=== PATIENT | male | born 1960 | race Caucasian/White ===

== ENCOUNTER 2016-12-20 05:38 | Inpatient (IN) | payer OTHER ==
[~2016-12-20] VITALS: Ht 182.9 cm; Wt 90.0 kg
[~2016-12-20 05:38] MED LIST: ALBU6.7H INH; ASPI325T PO; AUGM500T7 PO; GABA600T PO; GEMF600T PO; GLIP5TAB8 PO; LISI-515 PO; LOVA40TA PO; METF1000 PO; METR-1 PO; OXYC1TAB63 PO
[2016-12-20 05:43] VITALS: BP 115/70; PULSE 90; RESP 18; TEMP 98.9; TEMP 99.5; O2SAT 99
[2016-12-20 06:12] LABS: AUTOMATED NEUTROPHIL # 10.8 TH/MM3 (1.8-7.7); BASOPHIL % 0.3 % (0.0-2.0); EOSINOPHIL % 0.3 % (0.0-4.0); HEMATOCRIT 32.9 % (39.0-51.0); LYMPH % 11.1 % (9.0-44.0); LYMPHOCYTE # 1.5 TH/MM3 (1.0-4.8); MEAN CELL VOLUME 71.4 FL (80.0-100.0); MEAN CORPUSCULAR HEMOGLOBIN 22.9 PG (27.0-34.0); MONO % 8.1 % (0.0-8.0); NEUT % 80.2 % (16.0-70.0); PLATELET COUNT 334 TH/MM3 (150-450); RED BLOOD COUNT 4.61 MIL/MM3 (4.50-5.90); RED CELL DISTRIBUTION WIDTH 19.6 % (11.6-17.2); WHITE BLOOD COUNT 13.5 TH/MM3 (4.0-11.0)
[2016-12-20] MEDS ORDERED: HYDROmorphone HCL PF 1 MG/ML VIAL IV PUSH ONE ×2 (06:15→07:45)
[2016-12-20] MEDS ORDERED: ONDANSETRON HCL 4 MG/2 ML VIAL IV PUSH ONE (06:15)
[2016-12-20] MEDS ORDERED: SODIUM CHLOR 0.9% 1000 ML INJ 1,000 ML IV ONE (06:15)
[2016-12-20 06:16] LABS: HEMO FLAGS AUTO DIFF
[2016-12-20 06:29] LABS: ALT (GPT) 115 U/L (12-78); AST (GOT) 67 U/L (15-37); BLOOD UREA NITROGEN 23 MG/DL (7-18); GLOMERULAR FILTRATION RATE 69 ML/MIN (>89); POTASSIUM 3.8 MEQ/L (3.5-5.1); SODIUM (NA) 134 MEQ/L (136-145)
[2016-12-20 06:30] LABS: ANION GAP 10 MEQ/L (5-15); BICARBONATE 23.1 MEQ/L (21.0-32.0); CHLORIDE 101 MEQ/L (98-107)
--- NOTE | 2016-12-20 06:30 | PD ---
HPI Chief Complaint: Abdominal Pain Time Seen by Provider: 06:05 Travel History International Travel<30 days: No Contact w/Intl Traveler<30days: No Traveled to known affect area: No History of Present Illness HPI 56-year-old male with history of multiple medical issues, nursing notes were evaluated, previous history of hiatal hernia repair, gastric ulcer, has been evaluated by Dr. Pierre for diverticulitis and had discuss hemicolectomy, presents to the ER today for 3 days history of right upper quadrant abdominal pain which she currently measures and 8 out of 10, nausea, and symptoms worsen with movement. He denies any vomiting, fevers, diarrhea, or any other symptoms. He states that the area feels bloated and swollen. Modifying Factors: None Associated Signs & Symptoms: Right upper quadrant abdominal pain, nausea, swelling Risk Factors: Diverticulitis history PFSH Past Medical History Arthritis: Yes Asthma: No Autoimmune Disease: No Blood Disorders: No Anxiety: No Depression: Yes Heart Rhythm Problems: No Cancer: No Cardiovascular Problems: No High Cholesterol: Yes Chemotherapy: No Chest Pain: No Congestive Heart Failure: No COPD: Yes Cerebrovascular Accident: Yes (TIA 05/2015) Diabetes: Yes Patient Takes Glucophage: Yes (12/19/16@2030) Diminished Hearing: No Diverticulitis: Yes Endocrine: No Gastrointestinal Disorders: Yes (HIATAL HERNIA; ABD HERNIA, ULCER) GERD: Yes Genitourinary: No Hepatitis: No Hiatal Hernia: Yes Hypertension: Yes Immune Disorder: No Implanted Vascular Access Dvce: No Medical other: Yes (GERD, HX ULCERS, SEIZURES , HEART, LIVER AND OTHER ORGANS ON OPPOSITE SIDE) Musculoskeletal: Yes (ARTHRITIS) Neurologic: Yes (VERTIGO ) Psychiatric: No Reproductive: No Respiratory: Yes (COPD) Immunizations Current: Yes Migraines: No Myocardial Infarction: No Radiation Therapy: No Seizures: Yes ( A KID) Sleep Apnea: Yes Thyroid Disease: No Triglycerides - High: Yes Ulcer: Yes Tetanus Vaccination: > 5 Years Influenza Vaccination: No Past Surgical History Abdominal Surgery: Yes (12/11 LAP HIATAL HERNIA; 06/10 REPAIR INCISIONAL HERNIA) Body Medical Devices: MESH Cardiac Surgery: No Ear Surgery: No Endocrine Surgery: No Eye Surgery: No Genitourinary Surgery: No Gynecologic Surgery: No Joint Replacement: No Oral Surgery: Yes (EGD 09/09) Pacemaker: No Thoracic Surgery: No Other Surgery: Yes (lap hiatal hernia repair) Social History Alcohol Use: Yes ("NOT TOO MUCH") Tobacco Use: Yes ("NOT EVERY DAY") Substance Use: No Allergies-Medications (Allergen,Severity, Reaction): Coded Allergies: No Known Allergies (Verified , 08/23/16) Reported Meds & Prescriptions Reported Meds & Active Scripts Active Lisinopril 20 Mg Tab 20 Mg PO BID Glipizide 5 Mg Tab 5 Mg PO DAILY Take 30 minutes before a meal Lovastatin 40 Mg Tab 40 Mg PO DAILY Oxycodone-Acetaminophen 5-325 mg Tab 1 Tab PO Q4H PRN Metformin (Metformin HCl) 1,000 Mg Tab 1,000 Mg PO BIDPC With meals Reported Gabapentin 600 Mg Tab 600 Mg PO TID Proventil Hfa 6.7 GM Inh (Albuterol Sulfate) 90 Mcg/Act Aer 1 Puff INH Q4H PRN Gemfibrozil 600 Mg Tab 600 Mg PO BIDAC Take 30 minutes prior to breakfast and dinner. Aspirin 325 Mg Tab 325 Mg PO DAILY Review of Systems Except as stated in HPI: all other systems reviewed are Neg Physical Exam Narrative GENERAL: Well-nourished, well-developed middle age white male patient in no acute distress. SKIN: Warm and dry. HEAD: Normocephalic. EYES: No scleral icterus. No injection or drainage. NECK: Supple, trachea midline. CARDIOVASCULAR: Regular rate and rhythm without murmurs, gallops, or rubs. RESPIRATORY: Breath sounds equal bilaterally. No accessory muscle use. GASTROINTESTINAL: Abdomen soft, right upper quadrant tenderness without guarding or rebound, nondistended. MUSCULOSKELETAL: No cyanosis, or edema. BACK: Nontender without obvious deformity. No CVA tenderness. Data Data Last Documented VS Vital Signs Date Time Temp Pulse Resp B/P Pulse Ox O2 Delivery O2 Flow Rate FiO2 12/20/16 05:43 99.5 90 18 115/70 99 Room Air Orders Complete Blood Count With Diff (12/20/16 05:54) Comprehensive Metabolic Panel (12/20/16 05:54) Lipase (12/20/16 05:54) Urinalysis - C+S If Indicated (12/20/16 05:54) Iv Access Insert/Monitor (12/20/16 05:54) Ecg Monitoring (12/20/16 05:54) Oximetry (12/20/16 05:54) Sodium Chloride 0.9% Flush (Ns Flush) (12/20/16 06:00) Sodium Chlor 0.9% 1000 Ml Inj (Ns 1000 M (12/20/16 06:15) Hydromorphone Pf Inj (Dilaudid Pf Inj) (12/20/16 06:15) Ondansetron Inj (Zofran Inj) (12/20/16 06:15) Ct Abd/Pel W Iv Contrast(Rout) (12/20/16 06:06) Iohexol 350 Inj (Omnipaque 350 Inj) (12/20/16 06:52) Labs Laboratory Tests Test 12/20/16 06:00 White Blood Count 13.5 TH/MM3 Red Blood Count 4.61 MIL/MM3 Hemoglobin 10.6 GM/DL Hematocrit 32.9 % Mean Corpuscular Volume 71.4 FL Mean Corpuscular Hemoglobin 22.9 PG Mean Corpuscular Hemoglobin 32.0 % Concent Red Cell Distribution Width 19.6 % Platelet Count 334 TH/MM3 Mean Platelet Volume 7.4 FL Neutrophils (%) (Auto) 80.2 % Lymphocytes (%) (Auto) 11.1 % Monocytes (%) (Auto) 8.1 % Eosinophils (%) (Auto) 0.3 % Basophils (%) (Auto) 0.3 % Neutrophils # (Auto) 10.8 TH/MM3 Lymphocytes # (Auto) 1.5 TH/MM3 Monocytes # (Auto) 1.1 TH/MM3 Eosinophils # (Auto) 0.0 TH/MM3 Basophils # (Auto) 0.0 TH/MM3 CBC Comment AUTO DIFF Differential Comment AUTO DIFF CONFIRMED Platelet Estimate NORMAL Platelet Morphology Comment NORMAL Red Cell Morphology Comment Sodium Level 134 MEQ/L Potassium Level 3.8 MEQ/L Chloride Level 101 MEQ/L Carbon Dioxide Level 23.1 MEQ/L Anion Gap 10 MEQ/L Blood Urea Nitrogen 23 MG/DL Creatinine 1.10 MG/DL Estimat Glomerular Filtration 69 ML/MIN Rate Random Glucose 95 MG/DL Calcium Level 8.8 MG/DL Total Bilirubin 0.6 MG/DL Aspartate Amino Transf 67 U/L (AST/SGOT) Alanine Aminotransferase 115 U/L (ALT/SGPT) Alkaline Phosphatase 192 U/L Total Protein 7.4 GM/DL Albumin 2.8 GM/DL Lipase 129 U/L [facility] Medical Decision Making Medical Screen Exam Complete: Yes Emergency Medical Condition: Yes Medical Record Reviewed: Yes Interpretation(s) Laboratory Tests Test 12/20/16 06:00 White Blood Count 13.5 TH/MM3 (4.0-11.0) Hemoglobin 10.6 GM/DL (13.0-17.0) Hematocrit 32.9 % (39.0-51.0) Mean Corpuscular Volume 71.4 FL (80.0-100.0) Mean Corpuscular Hemoglobin 22.9 PG (27.0-34.0) Red Cell Distribution Width 19.6 % (11.6-17.2) Neutrophils (%) (Auto) 80.2 % (16.0-70.0) Monocytes (%) (Auto) 8.1 % (0.0-8.0) Neutrophils # (Auto) 10.8 TH/MM3 (1.8-7.7) Monocytes # (Auto) 1.1 TH/MM3 (0-0.9) Sodium Level 134 MEQ/L (136-145) Blood Urea Nitrogen 23 MG/DL (7-18) Estimat Glomerular Filtration 69 ML/MIN (>89) Rate Aspartate Amino Transf 67 U/L (15-37) (AST/SGOT) Alanine Aminotransferase 115 U/L (12-78) (ALT/SGPT) Alkaline Phosphatase 192 U/L (45-117) Albumin 2.8 GM/DL (3.4-5.0) Differential Diagnosis Right upper quadrant abdominal painscholecystitis versus hepatitis versus diverticulitis versus other acute intra-abdominal processes Narrative Course IV fluids, Dilaudid, and Zofran was ordered for the patient. Lab work and CAT scan was ordered for the patient. Physician Communication Physician Communication Case is signed out to Dr. Escalera at 7 AM pending CAT scan and UA. Disposition based on scanning. Diagnosis Primary Impression: Abdominal pain Condition: Stable Stacey Rush MD Dec 20, 2016 06:30
[2016-12-20 06:31] LABS: ALKALINE PHOSPHATASE 192 U/L (45-117); TOTAL BILIRUBIN ADULT 0.6 MG/DL (0.2-1.0)
[2016-12-20] MEDS ORDERED: IOHEXOL 350 MG/ML 10 ML VIAL (for RAD DIAG) IV ONE (06:52)
[2016-12-20 06:55] LABS: PLATELET ESTIMATE SMEAR NORMAL (NORMAL); PLATELET MORPHOLOGY NORMAL (NORMAL)
[2016-12-20 06:56] LABS: SCAN/DIFF AUTO DIFF CONFIRMED
--- NOTE | 2016-12-20 07:02 | RADRPT ---
EXAM DATE/TIME: 12/20/2016 06:42 [facility] COMPARISON: CT ABDOMEN & PELVIS W CONTRAST, October 16, 2016, 13:11. INDICATIONS : Right upper quadrant pain since monday IV CONTRAST: 100 cc Omnipaque 350 (iohexol) IV ORAL CONTRAST: No oral contrast ingested. RADIATION DOSE: 9.5 CTDIvol (mGy) MEDICAL HISTORY : Diverticulitis. Diabetes mellitus type 2. Hernia, hiatal.Situs inverses SURGICAL HISTORY : Hernai repair. ENCOUNTER: Initial ACUITY: 4 - 6 days PAIN SCALE: 10/10 LOCATION: Right upper quadrant TECHNIQUE: Volumetric scanning of the abdomen and pelvis was performed. Using automated exposure control and ad justment of the mA and/or kV according to patient size, radiation dose was kept as low as reasonably achievable to obtain optimal diagnostic quality images. 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 LOWER LUNGS: The visualized lower lungs are clear. LIVER: Homogeneous density without lesion. There is no dilation of the biliary tree. No calcified gallston es. SPLEEN: Normal size without lesion. PANCREAS: Within normal limits. KIDNEYS: Normal in size and shape. There is no mass, stone or hydronephrosis. ADRENAL GLANDS: Within normal limits. VASCULAR: There is no aortic aneurysm. BOWEL/MESENTERY: There is thickening of the proximal descending colon in the right upper quadrant with some surroundin g inflammatory change. There do appear to be colonic Diverticula. ABDOMINAL WALL: There is thickening and complex fluid seen in the anterior right lateral abdominal wall measuring 8.8 cm in AP dimension, 5.2 cm in transverse dimension and extending over a 10.8 cm in length. The patie nt previously had a pigtail catheter in this region. There is hernia mesh in the midline.. RETROPERITONEUM: There is no lymphadenopathy. BLADDER: No wall thickening or mass. REPRODUCTIVE: Within normal limits. INGUINAL: There is no lymphadenopathy or hernia. MUSCULOSKELETAL: There is degenerative change in the lumbar spine. CONCLUSION: 1. Thickening of the proximal descending colon in the right upper quadrant likely related to divertic ulitis. An underlying mass cannot be excluded in the clinical situation. 2. Thickening and fluid in the right anterior abdominal wall likely related to inflammatory change an d abscess. The patient previously had a drain in this region. Rob Nunez MD on December 20, 2016 at 6:54 Board Certified Radiologist. This report was verified electronically.
--- NOTE | 2016-12-20 07:13 | PD ---
Physical Exam Narrative Received sign out from previous team to follow up CT scan and UA. Please see previous provider's note for further details. 56yo M here with RUQ pain that has been constant for 4 days. Pain is nonradiating and associated with nausea. He was recently admitted in September for diverticulitis that had perforated into the abdominal wall and given IV antibiotics. Pt was instructed to follow up with Dr. Ross as an outpatient but never did. Pt was told by Dr. Ross he would need surgery for his diverticulitis but never followed up. On examination, pt is very tender in the right upper abdomen with light palpation. Labs reviewed, leukocytosis at 13.5. Elevated liver enzyme. UA negative. CT a/p showed thickening of proximal descending colon in right upper quadrant likely related to diverticulitis. An underlying mass cannot be excluded. Thickening and fluid in right anterior abdominal wall likely related to inflammatory change and abscess. Discussed with Dr. Ross and recommended IV antibiotics, IVF as well as admission under his service. Data Data Last Documented VS Vital Signs Date Time Temp Pulse Resp B/P Pulse Ox O2 Delivery O2 Flow Rate FiO2 12/20/16 05:43 99.5 90 18 115/70 99 Room Air Orders Complete Blood Count With Diff (12/20/16 05:54) Comprehensive Metabolic Panel (12/20/16 05:54) Lipase (12/20/16 05:54) Urinalysis - C+S If Indicated (12/20/16 05:54) Iv Access Insert/Monitor (12/20/16 05:54) Ecg Monitoring (12/20/16 05:54) Oximetry (12/20/16 05:54) Sodium Chloride 0.9% Flush (Ns Flush) (12/20/16 06:00) Sodium Chlor 0.9% 1000 Ml Inj (Ns 1000 M (12/20/16 06:15) Hydromorphone Pf Inj (Dilaudid Pf Inj) (12/20/16 06:15) Ondansetron Inj (Zofran Inj) (12/20/16 06:15) Ct Abd/Pel W Iv Contrast(Rout) (12/20/16 06:06) Iohexol 350 Inj (Omnipaque 350 Inj) (12/20/16 06:52) Hydromorphone Pf Inj (Dilaudid Pf Inj) (12/20/16 07:45) Labs Laboratory Tests Test 12/20/16 06:00 White Blood Count 13.5 TH/MM3 Red Blood Count 4.61 MIL/MM3 Hemoglobin 10.6 GM/DL Hematocrit 32.9 % Mean Corpuscular Volume 71.4 FL Mean Corpuscular Hemoglobin 22.9 PG Mean Corpuscular Hemoglobin 32.0 % Concent Red Cell Distribution Width 19.6 % Platelet Count 334 TH/MM3 Mean Platelet Volume 7.4 FL Neutrophils (%) (Auto) 80.2 % Lymphocytes (%) (Auto) 11.1 % Monocytes (%) (Auto) 8.1 % Eosinophils (%) (Auto) 0.3 % Basophils (%) (Auto) 0.3 % Neutrophils # (Auto) 10.8 TH/MM3 Lymphocytes # (Auto) 1.5 TH/MM3 Monocytes # (Auto) 1.1 TH/MM3 Eosinophils # (Auto) 0.0 TH/MM3 Basophils # (Auto) 0.0 TH/MM3 CBC Comment AUTO DIFF Differential Comment AUTO DIFF CONFIRMED Platelet Estimate NORMAL Platelet Morphology Comment NORMAL Red Cell Morphology Comment Sodium Level 134 MEQ/L Potassium Level 3.8 MEQ/L Chloride Level 101 MEQ/L Carbon Dioxide Level 23.1 MEQ/L Anion Gap 10 MEQ/L Blood Urea Nitrogen 23 MG/DL Creatinine 1.10 MG/DL Estimat Glomerular Filtration 69 ML/MIN Rate Random Glucose 95 MG/DL Calcium Level 8.8 MG/DL Total Bilirubin 0.6 MG/DL Aspartate Amino Transf 67 U/L (AST/SGOT) Alanine Aminotransferase 115 U/L (ALT/SGPT) Alkaline Phosphatase 192 U/L Total Protein 7.4 GM/DL Albumin 2.8 GM/DL Lipase 129 U/L [facility] Supervised Visit with ANTONIO: No Diagnosis Primary Impression: Abdominal wall abscess Admitting Information Admitting Physician Requests: Admit Condition: Stable Kaye Escalera DO Dec 20, 2016 07:13
[2016-12-20 07:31] LABS: BLOOD, URINE NEG (NEG); GLUCOSE,URINE NEG (NEG); KETONE, URINE NEG (NEG); MUCUS URINE FEW /lpf (OCC); NITRITE,URINE NEG (NEG); PH, URINE 5.5 (5.0-8.5); SQUAMOUS EPITHELIAL CELL URINE <1 /hpf (0-5); URINE COLOR YELLOW (YELLW/STRAW)
[2016-12-20 07:38] LABS: COMMENT (UR) CULT NOT INDICATED; CULTURE IF INDICATED CULT NOT INDICATED
[2016-12-20] MEDS ORDERED: PIPERACIL-TAZO 3.375 GM PREMIX 50 ML IV ONE (07:45)
[2016-12-20] MEDS ORDERED: D5-1/2 NS + KCL 20 MEQ INJ 1,000 ML IV SCH (07:45)
[2016-12-20] MEDS ORDERED: VANCOMYCIN INJ 1,350 MG in SODIUM CHLORID 0.9% 500 ML INJ 500 ML IV ONE (07:45)
[2016-12-20 07:56] VITALS: BP 93/55; PULSE 79; RESP 20; O2SAT 94
[2016-12-20 10:30] VITALS: BP 112/63; PULSE 79; RESP 18; O2SAT 95
[2016-12-20] MEDS ORDERED: ENOXAPARIN SODIUM 40 MG/0.4 ML SYRINGE SQ SCH (13:00)
[2016-12-20] MEDS: HYDROmorphone HCL PF 1 MG/ML VIAL IV PUSH PRN ×6 (13:32→23:54)
[2016-12-20] MEDS: PIPERACIL-TAZO 4.5 GM PREMIX 100 ML IV SCH ×2 (13:33→21:53)
[2016-12-20 13:34] VITALS: BP 99/63; PULSE 78; RESP 18; O2SAT 94
[2016-12-20] MEDS: SODIUM CHLORIDE 0.9% FLUSH 5 ML FLUSH IVF PRN ×2 (15:28→17:28)
[2016-12-20 15:33] VITALS: BP 116/78; PULSE 81; RESP 16; TEMP 98.9
[2016-12-20] MEDS: VANCOMYCIN INJ 1,000 MG in SODIUM CHLOR 0.9% 250 ML INJ 250 ML IV SCH (19:55)
[2016-12-20 20:00] VITALS: BP 114/64; PULSE 89; RESP 20; TEMP 96; O2SAT 96
[2016-12-20 21:00] LABS: APTT (PATIENT) 29.2 SEC (24.3-30.1)
[2016-12-21] VITALS (7 sets, daily range): BP systolic 89–125; BP diastolic 54–74; PULSE 79–91; RESP 16–23; TEMP 96.4–99.8; O2SAT 90–96
[2016-12-21] MEDS ORDERED: ONDANSETRON HCL 4 MG/2 ML VIAL IV PRN (00:30)
[2016-12-21] MEDS: HYDROmorphone HCL PF 1 MG/ML VIAL IV PUSH PRN ×10 (01:58→22:32)
[2016-12-21] MEDS: PIPERACIL-TAZO 4.5 GM PREMIX 100 ML IV SCH ×2 (05:34→13:57)
[2016-12-21] MEDS: VANCOMYCIN INJ 1,000 MG in SODIUM CHLOR 0.9% 250 ML INJ 250 ML IV SCH ×2 (07:21→20:46)
[2016-12-21] MEDS: SODIUM CHLORIDE 0.9% FLUSH 5 ML FLUSH IVF PRN ×3 (07:21→12:02)
[2016-12-21] MEDS ORDERED: fentaNYL CITRATE 250 MCG/5 ML AMP ONE (07:51)
[2016-12-21] MEDS ORDERED: MIDAZOLAM HCL 5 MG/5 ML VIAL ONE (07:51)
[2016-12-21] MEDS ORDERED: LIDOCAINE 1%/EPINEPHrine 1:100,000 SOLN 20 ML VIAL ONE (07:52)
--- NOTE | 2016-12-21 11:35 | RADRPT ---
EXAM DATE/TIME: 12/21/2016 08:16 [facility] COMPARISON: CT ASSISTED ABSCESS DRAIN, October 11, 2016, 15:48. INDICATIONS : Right abdominal wall abscess SEDATION TIME: 30 minutes MEDICATION(S): 1.) 3 mg midazolam (Versed) IV 2.) 150 mcg fentanyl (Sublimaze) IV 3.) 4 mg ondansetron (Zofran) IV DEVICE(S): 1.) 8 Fr Skater Total volume of 30 cc of [place] fluid was removed. Fluid was sent for laboratory ordered studies. MEDICAL HISTORY : Diabetes mellitus type 1. Diverticulitis. situs inversus SURGICAL HISTORY : None. ENCOUNTER: Initial ACUITY: 1 day PAIN SCORE: 10/10 LOCATION: Right upper quadrant PROCEDURE: 1.) Conscious sedation with continuous EKG and oximetry monitoring. 2.) EKG and oximetry remained stable throughout the procedure. PROCEDURE : 1. CT guided drainage of the right lower abdominal wall abscess from intra-abdominal process. 2. Conscious sedation with continuous EKG and oximetry monitoring. The risks, benefits and alternatives to the procedure were explained and verbal and written consent w as obtained. The site was prepped in sterile fashion. Full sterile technique was used, including ca p, mask, sterile gloves and gown and a large sterile sheet. Hand hygiene and 2% chlorhexidine and/or betadine/alcohol prep was utilized per protocol for cutaneous antisepsis. The skin and subcutaneous tissues were infiltrated with local anesthetic solution. Under CT guidance 8-Portuguese locking pigtail catheter was placed in good position. 30 cc of plus were removed and sent to the lab for Gram stain and culture. The patient tolerated the procedure well and there were no complications. Conscious sedation was per formed with the prescribed dosages and duration as above. The patient tolerated the procedure well an d there were no complications. EKG and oximetry remained stable throughout the procedure. The patient was sent to post anesthesia recovery in stable condition. CONCLUSION: Uncomplicated CT guided drainage right lower abdominal wall abscess. Jose Garcia MD FACR on December 21, 2016 at 11:29 Board Certified Radiologist. This report was verified electronically.
--- NOTE | 2016-12-21 18:25 | PD.CAR.PN ---
CVT Progress Note Subjective/Hospital Course: Patient with the perforated sigmoid diverticulitis into the anterior abdominal wall Underwent successful placement of a percutaneous drainage catheter I'll let this drain for a few days and decompressed and then patient will undergo sigmoid resection with Biju colostomy Patient had fallen out of the follow-up because he did not respond to any male email or telephone calls and did not follow with a gastroenterology as he was advised Patient stasis changes phone numbers few times and address and has to confusion Patient is completely noncompliant with his care and now has a recurrent localized perforation This of course could be very well carcinoma of the colon rather than just the abscess and I have explained to the patient Patient remain on clear liquids and then undergo sigmoid resection and Biju colostomy early next week Objective: Vital Signs Date Time Temp Pulse Resp B/P Pulse Ox O2 Delivery O2 Flow Rate FiO2 12/21/16 16:30 18 12/21/16 16:00 98.3 81 16 99/57 93 12/21/16 12:00 99.2 79 16 106/70 93 12/21/16 09:26 84 19 112/54 92 12/21/16 08:56 98.3 87 18 89/62 90 12/21/16 08:00 96.4 79 23 125/74 95 12/21/16 00:19 99.8 91 22 114/68 95 12/20/16 20:00 96.0 89 20 114/64 96 Result Diagram: 12/20/16 0600 12/20/16 0600 Maximino Pierre MD Dec 21, 2016 18:25
--- NOTE | 2016-12-21 19:10 | MH ---
cc: MAXIMINO CLIFFORD MD DATE OF ADMISSION: 12/20/2016 ADMITTING DIAGNOSIS: Perforated sigmoid diverticulitis into the anterior abdominal wall, situs viscerum inversus. HISTORY OF PRESENT ILLNESS: This 56-year-old male, who is completely noncompliant with his medical care, presented multiple times to this hospital. The last time I admitted him, the patient had a localized perforation of the sigmoid colon to the anterior abdominal wall, in this case on the right side considering his situs viscerum inversus situation, and this was drained percutaneously with plan for the patient to undergo colonoscopy and then elective resection of the sigmoid if this was the only problem. The patient, of course, never followed up with the rn birthing, and fell out of followup, we called him many times and could not reach him and apparently the patient states he changed the phone number, address or something of the sort; hence, the patient now comes to the emergency room with more swelling in the right side, and of course, recurrent diverticulitis and localized abscess. PAST MEDICAL HISTORY: 1. Arthritis. 2. Recurrent diverticulitis. 3. Hypercholesteremia. 4. Hypertension. 5. COPD. 6. Diabetes mellitus. 7. Gastroesophageal reflux disease (GERD). 8. Vertigo. 9. Seizures in childhood. 10. Sleep apnea. 11. Duodenal ulcer. PAST SURGICAL HISTORY: 1. Abdominal surgeries. 2. Laparoscopic hernia repair. 3. Incisional hernia repair in 2011. He apparently had mesh put in at that time. SOCIAL HISTORY: The patient drinks heavily and smokes about a pack a day. MEDICATIONS: He is meant to be on: 1. Metformin. 2. Glipizide. 3. Lisinopril. However, he does not take these. PHYSICAL EXAMINATION: GENERAL: The physical exam reveals a 56-year-old male appearing older than his actual age. HEAD, EYES, EARS, NOSE, THROAT: Normocephalic. No trauma to the head. Pupils equal and reactive. Extraocular muscles intact. NECK: The neck is supple. Bilateral carotid pulses. Faint carotid bruit, which we checked by ultrasound. HEART: Regular rhythm. ABDOMEN: Moderately obese, soft, hyperactive bowel sounds. On the right side, the patient has a swelling, which is tender and consistent with a perforation of the sigmoid colon into the anterior abdominal wall and underlying collection. No rebound or guarding but certainly tenderness is present. No hernias. EXTREMITIES: Grossly within normal limits. BACK: Normal. NEUROLOGIC: Grossly intact. IMPRESSION: A 56-year-old male with recurrent diverticulitis and possibly a perforating colon cancer into the anterior abdominal wall. The patient was supposed to undergo resection of the same after colonoscopy and then disappeared from followup and finally showed up again in the emergency room. The patient will now be admitted and will undergo GoLYTELY prep, colonoscopy and we will go from there. Maximino RICE/MARIA D /6:29 PM /6:59 PM
[2016-12-22 00:17] VITALS: BP 119/69; PULSE 71; RESP 18; TEMP 96.5; O2SAT 96
[2016-12-22] MEDS: HYDROmorphone HCL PF 1 MG/ML VIAL IV PUSH PRN ×7 (00:41→14:13)
[2016-12-22 04:00] VITALS: BP 114/73; PULSE 86; RESP 19; TEMP 98.6; O2SAT 95
[2016-12-22] MEDS: PIPERACIL-TAZO 4.5 GM PREMIX 100 ML IV SCH ×3 (04:47→20:14)
[2016-12-22] MEDS ORDERED: diphenhydrAMINE HCL 25 MG CAP PO PRN (05:15)
[2016-12-22 08:00] VITALS: BP 103/65; PULSE 71; RESP 16; TEMP 98.4; O2SAT 93
[2016-12-22] MEDS: VANCOMYCIN INJ 1,000 MG in SODIUM CHLOR 0.9% 250 ML INJ 250 ML IV SCH ×2 (08:24→20:14)
[2016-12-22 12:11] VITALS: BP 123/75; PULSE 70; RESP 18; TEMP 98.6; O2SAT 100
--- NOTE | 2016-12-22 14:30 | PD.CAR.PN ---
CVT Progress Note Subjective/Hospital Course: Patient with the perforated sigmoid diverticulitis into the anterior abdominal wall Underwent successful placement of a percutaneous drainage catheter I'll let this drain for a few days and decompressed and then patient will undergo sigmoid resection with Biju colostomy Patient had fallen out of the follow-up because he did not respond to any male email or telephone calls and did not follow with a gastroenterology as he was advised Patient stasis changes phone numbers few times and address and has to confusion Patient is completely noncompliant with his care and now has a recurrent localized perforation This of course could be very well carcinoma of the colon rather than just the abscess and I have explained to the patient Patient remain on clear liquids and then undergo sigmoid resection and Biju colostomy early next week 12/22/2016 Patient doing very well today Abdomen soft active bowel sounds and right abdominal wall collection has decreased in size and tenderness is minimal Will continue IV antibiotics to calm down the whole process and then proceed with sigmoid resection and Biju colostomy early next week Have discussed this with the patient and there is no way we can do primary anastomosis in the face of this severe infection and perforation into the anterior abdominal wall Patient will need to have colostomy at least for 3-4 months and then we can think about reversing this Objective: Vital Signs Date Time Temp Pulse Resp B/P Pulse Ox O2 Delivery O2 Flow Rate FiO2 12/22/16 12:11 98.6 70 18 123/75 100 12/22/16 08:00 98.4 71 16 103/65 93 12/22/16 03:41 16 12/22/16 00:17 96.5 71 18 119/69 96 12/21/16 20:21 96.4 89 18 108/64 96 12/21/16 16:00 98.3 81 16 99/57 93 Result Diagram: 12/20/16 0600 12/20/16 0600 Maximino Pierre MD Dec 22, 2016 14:30
[2016-12-22] MEDS: ENOXAPARIN SODIUM 40 MG/0.4 ML SYRINGE SQ SCH (15:59)
[2016-12-22] MEDS: oxyCODONE/ACETAMINOPHEN 10 MG/325 MG TAB PO PRN ×2 (15:59→20:14)
[2016-12-22 20:01] VITALS: BP 101/63; PULSE 72; RESP 18; TEMP 96.4; O2SAT 98
[2016-12-22 23:45] VITALS: BP 109/64; PULSE 80; RESP 18; TEMP 98.4; O2SAT 98
[2016-12-23] MEDS: oxyCODONE/ACETAMINOPHEN 10 MG/325 MG TAB PO PRN ×6 (00:09→23:36)
[2016-12-23] MEDS: PIPERACIL-TAZO 4.5 GM PREMIX 100 ML IV SCH ×3 (04:11→19:20)
[2016-12-23] MEDS: VANCOMYCIN INJ 1,000 MG in SODIUM CHLOR 0.9% 250 ML INJ 250 ML IV SCH ×2 (07:22→19:20)
[2016-12-23 08:02] VITALS: BP 120/69; PULSE 63; RESP 18; TEMP 96.2; O2SAT 96
[2016-12-23 11:44] VITALS: BP 125/76; PULSE 59; RESP 18; TEMP 96.7; O2SAT 96
[2016-12-23] MEDS: ENOXAPARIN SODIUM 40 MG/0.4 ML SYRINGE SQ SCH (14:53)
[2016-12-23 15:41] VITALS: BP 89/54; PULSE 64; RESP 18; TEMP 95.9; O2SAT 93
--- NOTE | 2016-12-23 19:30 | PD.CAR.PN ---
CVT Progress Note Subjective/Hospital Course: Patient with the perforated sigmoid diverticulitis into the anterior abdominal wall Underwent successful placement of a percutaneous drainage catheter I'll let this drain for a few days and decompressed and then patient will undergo sigmoid resection with Biju colostomy Patient had fallen out of the follow-up because he did not respond to any male email or telephone calls and did not follow with a gastroenterology as he was advised Patient stasis changes phone numbers few times and address and has to confusion Patient is completely noncompliant with his care and now has a recurrent localized perforation This of course could be very well carcinoma of the colon rather than just the abscess and I have explained to the patient Patient remain on clear liquids and then undergo sigmoid resection and Biju colostomy early next week 12/22/2016 Patient doing very well today Abdomen soft active bowel sounds and right abdominal wall collection has decreased in size and tenderness is minimal Will continue IV antibiotics to calm down the whole process and then proceed with sigmoid resection and Biju colostomy early next week Have discussed this with the patient and there is no way we can do primary anastomosis in the face of this severe infection and perforation into the anterior abdominal wall Patient will need to have colostomy at least for 3-4 months and then we can think about reversing this 12/23/2016 Patient doing very well Abdomen is soft and active bowel sounds he is having bowel movements and tolerating diet well Swelling of the right anterior abdominal wall has no decreased with drainage and the drainage itself has diminished greatly Will continue antibiotic therapy and early next week proceed with Biju resection Doing a full colonoscopy prior to surgery would be a perfect case scenario however in this situation with an active abscess and localized perforation this is not an option For Biju next week Objective: Vital Signs Date Time Temp Pulse Resp B/P Pulse Ox O2 Delivery O2 Flow Rate FiO2 12/23/16 15:41 95.9 64 18 89/54 93 12/23/16 11:44 96.7 59 18 125/76 96 12/23/16 08:02 96.2 63 18 120/69 96 12/22/16 23:45 98.4 80 18 109/64 98 12/22/16 20:01 96.4 72 18 101/63 98 Result Diagram: 12/20/16 0600 12/20/16 06 Maximino Pierre MD Dec 23, 2016 19:30
[2016-12-23 20:00] VITALS: BP 127/78; PULSE 64; RESP 20; TEMP 97; O2SAT 97
[2016-12-24] VITALS: BP 130/80; PULSE 66; RESP 18; TEMP 98; O2SAT 96
[2016-12-24] MEDS: PIPERACIL-TAZO 4.5 GM PREMIX 100 ML IV SCH ×3 (04:25→19:58)
[2016-12-24] MEDS: oxyCODONE/ACETAMINOPHEN 10 MG/325 MG TAB PO PRN ×5 (04:26→21:27)
[2016-12-24 04:52] LABS: HEMATOCRIT 32.7 % (39.0-51.0); MEAN CELL VOLUME 71.9 FL (80.0-100.0); MEAN CORPUSCULAR HEMOGLOBIN 22.9 PG (27.0-34.0); MEAN CORPUSCULAR HGB CONC 31.9 % (32.0-36.0); PLATELET COUNT 376 TH/MM3 (150-450); RED BLOOD COUNT 4.55 MIL/MM3 (4.50-5.90); RED CELL DISTRIBUTION WIDTH 19.2 % (11.6-17.2); WHITE BLOOD COUNT 7.4 TH/MM3 (4.0-11.0)
[2016-12-24 04:56] LABS: REVIEW FLAG FINAL
[2016-12-24 05:14] LABS: BICARBONATE 28.3 MEQ/L (21.0-32.0); POTASSIUM 4.3 MEQ/L (3.5-5.1)
[2016-12-24] MEDS: VANCOMYCIN INJ 1,000 MG in SODIUM CHLOR 0.9% 250 ML INJ 250 ML IV SCH ×2 (07:48→19:58)
[2016-12-24 08:00] VITALS: BP 130/81; PULSE 55; RESP 16; TEMP 96.4; O2SAT 98
[2016-12-24 12:00] VITALS: BP 136/83; PULSE 73; RESP 18; TEMP 96.6; O2SAT 95
--- NOTE | 2016-12-24 15:45 | PD.CAR.PN ---
CVT Progress Note Subjective/Hospital Course: Patient with the perforated sigmoid diverticulitis into the anterior abdominal wall Underwent successful placement of a percutaneous drainage catheter I'll let this drain for a few days and decompressed and then patient will undergo sigmoid resection with Biju colostomy Patient had fallen out of the follow-up because he did not respond to any male email or telephone calls and did not follow with a gastroenterology as he was advised Patient stasis changes phone numbers few times and address and has to confusion Patient is completely noncompliant with his care and now has a recurrent localized perforation This of course could be very well carcinoma of the colon rather than just the abscess and I have explained to the patient Patient remain on clear liquids and then undergo sigmoid resection and Biju colostomy early next week 12/22/2016 Patient doing very well today Abdomen soft active bowel sounds and right abdominal wall collection has decreased in size and tenderness is minimal Will continue IV antibiotics to calm down the whole process and then proceed with sigmoid resection and Biju colostomy early next week Have discussed this with the patient and there is no way we can do primary anastomosis in the face of this severe infection and perforation into the anterior abdominal wall Patient will need to have colostomy at least for 3-4 months and then we can think about reversing this 12/23/2016 Patient doing very well Abdomen is soft and active bowel sounds he is having bowel movements and tolerating diet well Swelling of the right anterior abdominal wall has no decreased with drainage and the drainage itself has diminished greatly Will continue antibiotic therapy and early next week proceed with Biju resection Doing a full colonoscopy prior to surgery would be a perfect case scenario however in this situation with an active abscess and localized perforation this is not an option For Biju next week 12/24/2016 Abdomen soft with active bowel sounds and tolerating diet well Drainage from the pigtail catheter is minimal and swelling of the right anterior abdominal wall had decreased Patient will have GoLYTELY on Monday and have the sigmoid resection with Biju colostomy on Monday Discussed with the patient Objective: Vital Signs Date Time Temp Pulse Resp B/P Pulse Ox O2 Delivery O2 Flow Rate FiO2 12/24/16 14:09 17 12/24/16 12:00 96.6 73 18 136/83 95 12/24/16 08:00 96.4 55 16 130/81 98 12/24/16 00:00 98.0 66 18 130/80 96 12/23/16 20:00 97.0 64 20 127/78 97 Labs: Laboratory Tests Test 12/24/16 04:25 White Blood Count 7.4 TH/MM3 (4.0-11.0) Red Blood Count 4.55 MIL/MM3 (4.50-5.90) Hemoglobin 10.4 GM/DL (13.0-17.0) Hematocrit 32.7 % (39.0-51.0) Mean Corpuscular Volume 71.9 FL (80.0-100.0) Mean Corpuscular Hemoglobin 22.9 PG (27.0-34.0) Mean Corpuscular Hemoglobin 31.9 % Concent (32.0-36.0) Red Cell Distribution Width 19.2 % (11.6-17.2) Platelet Count 376 TH/MM3 (150-450) Mean Platelet Volume 7.3 FL (7.0-11.0) Sodium Level 142 MEQ/L (136-145) Potassium Level 4.3 MEQ/L (3.5-5.1) Chloride Level 106 MEQ/L (98-107) Carbon Dioxide Level 28.3 MEQ/L (21.0-32.0) Anion Gap 8 MEQ/L (5-15) Blood Urea Nitrogen 19 MG/DL (7-18) Creatinine 0.94 MG/DL (0.60-1.30) Estimat Glomerular Filtration 83 ML/MIN (>89) Rate Random Glucose 123 MG/DL (74-106) Calcium Level 8.6 MG/DL (8.5-10.1) Result Diagram: 12/24/16 0425 12/24/16 0425 Maximino Pierre MD Dec 24, 2016 15:45
[2016-12-24 16:00] VITALS: BP 120/76; PULSE 77; RESP 18; TEMP 95.9; O2SAT 96
[2016-12-24] MEDS: ENOXAPARIN SODIUM 40 MG/0.4 ML SYRINGE SQ SCH (16:08)
[2016-12-24 20:00] VITALS: BP 126/82; PULSE 72; RESP 20; TEMP 97.5; O2SAT 96
[2016-12-25 00:02] VITALS: BP 125/81; PULSE 63; RESP 21; TEMP 96; O2SAT 96
[2016-12-25] MEDS: oxyCODONE/ACETAMINOPHEN 10 MG/325 MG TAB PO PRN ×6 (02:04→22:08)
[2016-12-25] MEDS: PIPERACIL-TAZO 4.5 GM PREMIX 100 ML IV SCH ×3 (05:30→20:50)
[2016-12-25] MEDS: VANCOMYCIN INJ 1,000 MG in SODIUM CHLOR 0.9% 250 ML INJ 250 ML IV SCH ×2 (07:45→20:51)
[2016-12-25 08:00] VITALS: BP 115/81; PULSE 60; RESP 18; TEMP 96.4; O2SAT 96
[2016-12-25 12:00] VITALS: BP 133/80; PULSE 61; RESP 16; TEMP 96.7; O2SAT 97
[2016-12-25] MEDS: ENOXAPARIN SODIUM 40 MG/0.4 ML SYRINGE SQ SCH (15:58)
[2016-12-25 16:00] VITALS: BP 126/84; PULSE 68; RESP 14; TEMP 96.8; O2SAT 97
--- NOTE | 2016-12-25 17:48 | PD.CAR.PN ---
CVT Progress Note Subjective/Hospital Course: Patient with the perforated sigmoid diverticulitis into the anterior abdominal wall Underwent successful placement of a percutaneous drainage catheter I'll let this drain for a few days and decompressed and then patient will undergo sigmoid resection with Biju colostomy Patient had fallen out of the follow-up because he did not respond to any male email or telephone calls and did not follow with a gastroenterology as he was advised Patient stasis changes phone numbers few times and address and has to confusion Patient is completely noncompliant with his care and now has a recurrent localized perforation This of course could be very well carcinoma of the colon rather than just the abscess and I have explained to the patient Patient remain on clear liquids and then undergo sigmoid resection and Biju colostomy early next week 12/22/2016 Patient doing very well today Abdomen soft active bowel sounds and right abdominal wall collection has decreased in size and tenderness is minimal Will continue IV antibiotics to calm down the whole process and then proceed with sigmoid resection and Biju colostomy early next week Have discussed this with the patient and there is no way we can do primary anastomosis in the face of this severe infection and perforation into the anterior abdominal wall Patient will need to have colostomy at least for 3-4 months and then we can think about reversing this 12/23/2016 Patient doing very well Abdomen is soft and active bowel sounds he is having bowel movements and tolerating diet well Swelling of the right anterior abdominal wall has no decreased with drainage and the drainage itself has diminished greatly Will continue antibiotic therapy and early next week proceed with Biju resection Doing a full colonoscopy prior to surgery would be a perfect case scenario however in this situation with an active abscess and localized perforation this is not an option For Biju next week 12/24/2016 Abdomen soft with active bowel sounds and tolerating diet well Drainage from the pigtail catheter is minimal and swelling of the right anterior abdominal wall had decreased Patient will have GoLYTELY on Monday and have the sigmoid resection with Biju colostomy on Monday Discussed with the patient 12/25/16 Abdomen soft active bowel sounds patient tolerating diet well The swelling of the right abdominal wall has diminished significantly At this point I discussed with patient the option of surgery as far as Biju colostomy is concerned and patient does not want the surgery until he gets insurance I assured him that the presence or absence of insurance should be the least of his problems at this point nonetheless patient refuses to have surgery unless he is placed in some sort of medical insurance Apparently is working with our the case management and the financial assist Therefore I'll postpone the surgery probably discharge patient on by mouth antibiotics but this is lesser of the 2 options and I believe it's indicated to proceed with surgery at this admission I've explained this in detail to the patient yet he persists Objective: Vital Signs Date Time Temp Pulse Resp B/P Pulse Ox O2 Delivery O2 Flow Rate FiO2 12/25/16 16:00 96.8 68 14 126/84 97 12/25/16 15:03 17 12/25/16 12:00 96.7 61 16 133/80 97 12/25/16 08:00 96.4 60 18 115/81 96 12/25/16 00:02 96.0 63 21 125/81 96 12/24/16 20:00 97.5 72 20 126/82 96 Result Diagram: 12/24/16 0425 12/24/16 0425 Maximino Pierre MD Dec 25, 2016 17:48
[2016-12-25 20:00] VITALS: BP_SYST 124; BP_SYST 150; BP_DIAS 76; BP_DIAS 79; PULSE 70; PULSE 97; RESP 20; RESP 21; TEMP 97.1; O2SAT 95
[2016-12-26] VITALS: BP 124/78; PULSE 65; RESP 21; TEMP 97.1; O2SAT 96
[2016-12-26] MEDS: oxyCODONE/ACETAMINOPHEN 10 MG/325 MG TAB PO PRN ×5 (02:31→19:43)
[2016-12-26] MEDS: PIPERACIL-TAZO 4.5 GM PREMIX 100 ML IV SCH ×3 (05:54→20:55)
[2016-12-26 08:00] VITALS: BP 129/79; PULSE 59; RESP 20; TEMP 96.7; O2SAT 95
[2016-12-26] MEDS: VANCOMYCIN INJ 1,000 MG in SODIUM CHLOR 0.9% 250 ML INJ 250 ML IV SCH ×2 (08:51→19:45)
[2016-12-26 12:00] VITALS: BP 162/90; PULSE 65; RESP 20; TEMP 96; O2SAT 95
[2016-12-26] MEDS: ENOXAPARIN SODIUM 40 MG/0.4 ML SYRINGE SQ SCH (15:02)
[2016-12-26 16:00] VITALS: BP 167/97; PULSE 78; RESP 20; TEMP 96; O2SAT 98
[2016-12-26 20:00] VITALS: BP 154/85; PULSE 76; RESP 21; TEMP 98; O2SAT 98
[2016-12-27] VITALS: BP 134/88; PULSE 64; RESP 21; TEMP 96.2; O2SAT 95
[2016-12-27] MEDS: oxyCODONE/ACETAMINOPHEN 10 MG/325 MG TAB PO PRN ×6 (00:01→20:50)
[2016-12-27] MEDS ORDERED: DEXTROSE 50% IN WATER 50 ML VIAL(D50) IV PUSH PRN (02:15)
[2016-12-27] MEDS ORDERED: GLUCAGON 1 MG/ML VIAL OTHER PRN (02:15)
[2016-12-27] MEDS ORDERED: ACETAMINOPHEN 325 MG TAB PO PRN ×2 (02:15)
[2016-12-27] MEDS ORDERED: MAGNESIUM HYDROXIDE SUSP 30 ML CUP PO PRN (02:15)
[2016-12-27] MEDS ORDERED: BISACODYL 10 MG SUPP PR PRN (02:15)
[2016-12-27] MEDS ORDERED: NALOXONE HCL 0.4 MG/ML AMP IV PRN (02:15)
[2016-12-27] MEDS ORDERED: SENNOSIDES 8.6 MG TAB PO PRN (02:15)
--- NOTE | 2016-12-27 02:24 | PD.CONS ---
[facility] Request[facility] By (Dr Ross) Reason for Consult Medical management Primary Care Physician Courtney Evangelista MD Diagnoses: History of Present Illness This is a 56-year-old male is currently being treated for recurrent diverticulitis. 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 He returned to the emergency room with more pain and swelling in the right side, and of course, recurrent diverticulitis and localized abscess which was drained percutaneously. He was started on IV vancomycin and Zosyn and clinical improvement. Wound culture grew Enterobacter. Patient still complains of intermittent mild right sided pain. Consultation has been requested by his attending to evaluate and manage multiple medical conditions which are diabetes mellitus with neuropathy, COPD, hypertension, hyperlipidemia and TIA. He wants to be restarted on his home medications which are lisinopril, albuterol, metformin, Lopid, lovastatin, aspirin and glipizide. Case discussed with RN. Chart reviewed. Review of Systems Constitutional: DENIES: Diaphoretic episodes, Fatigue, Fever, Weight gain, Weight loss, Chills, Dizziness, Change in appetite, Night Sweats Endocrine: DENIES: Heat/cold intolerance, Polydipsia, Polyuria, Polyphagia Eyes: DENIES: Blurred vision, Diplopia, Vision loss, Photosensitivity Ears, nose, mouth, throat: DENIES: Tinnitus, Vertigo, Throat pain, Hoarseness, Epistaxis, Odynophagia Respiratory: DENIES: Cough, Wheezing, Hemoptysis, Sputum production, Shortness of breath Cardiovascular: DENIES: Chest pain, Palpitations, Syncope, Dyspnea on Exertion , PND, Lower Extremity Edema, Orthopnea, Claudication Gastrointestinal: COMPLAINS OF: Abdominal pain, DENIES: Black stools, Bloody stools, Constipation, Diarrhea, Nausea, Vomiting, Difficulty Swallowing, Anorexia Genitourinary: DENIES: Urinary frequency, Urinary incontinence, Urgency, Hematuria, Dysuria, Nocturia, Penile Discharge Integumentary: DENIES: Rash Neurologic: DENIES: Headache, Localized weakness, Seizures, Tremor, Poor Balance Psychiatric: DENIES: Anxiety, Confusion, Depression, Hallucinations, Agitation , Suicidal Ideation, Homicidal Ideation, Delusions Past Family Social History Allergies: Coded Allergies: No Known Allergies (Verified , 08/23/16) Past Medical History As previously mentioned Past Surgical History As previously mentioned. Abdominal surgeries, laparoscopic hernia repair Reported Medications As previously mentioned Family History Diabetes mellitus Social History Continues to smoke half a pack per day. Occasional alcohol use. Physical Exam Vital Signs Vital Signs Date Time Temp Pulse Resp B/P Pulse Ox O2 Delivery O2 Flow Rate FiO2 12/27/16 00:00 96.2 64 21 134/88 95 12/26/16 20:00 98.0 76 21 154/85 98 12/26/16 16:00 96.0 78 20 167/97 98 12/26/16 12:00 96.0 65 20 162/90 95 12/26/16 08:00 96.7 59 20 129/79 95 Physical Exam GENERAL: This is a well-nourished, well-developed patient, in no apparent distress. SKIN: No rashes, ecchymoses or lesions. Cool and dry. HEAD: Atraumatic. Normocephalic. No temporal or scalp tenderness. EYES: Pupils equal round and reactive. Extraocular motions intact. No scleral icterus. No injection or drainage. ENT: Nose without bleeding, purulent drainage or septal hematoma. Throat without erythema, tonsillar hypertrophy or exudate. Uvula midline. Airway patent. NECK: Trachea midline. No JVD or lymphadenopathy. Supple, nontender, no meningeal signs. CARDIOVASCULAR: Regular rate and rhythm without murmurs, gallops, or rubs. RESPIRATORY: Clear to auscultation. Breath sounds equal bilaterally. No wheezes , rales, or rhonchi. GASTROINTESTINAL: Abdomen soft, tender over right lower quadrant area where he has a percutaneous drain, nondistended. He has an incisional hernia. No guarding. MUSCULOSKELETAL: Extremities without clubbing, cyanosis, or edema. No joint tenderness, effusion, or edema noted. No calf tenderness. Negative Homans sign bilaterally. NEUROLOGICAL: Awake and alert. Cranial nerves II through XII intact. Motor and sensory grossly within normal limits. Five out of 5 muscle strength in all muscle groups. Normal speech. Result Diagram: 12/24/1642412/24/16424 Imaging Last Impressions Abscess Drainage CT 12/21/16 0000 Signed Impressions: Service Date/Time: Wednesday, December 21, 2016 08:16 - CONCLUSION: Uncomplicated CT guided drainage right lower abdominal wall abscess. Jose Garcai MD FACR Abdomen/Pelvis CT 12/20/16 0606 Signed Impressions: Service Date/Time: Tuesday, December 20, 2016 06:42 - CONCLUSION: 1. Thickening of the proximal descending colon in the right upper quadrant likely related to diverticulitis. An underlying mass cannot be excluded in the clinical situation. 2. Thickening and fluid in the right anterior abdominal wall likely related to inflammatory change and abscess. The patient previously had a drain in this region. Rob Nunez MD Assessment and Plan Assessment and Plan Recurrent diverticulitis status post percutaneous drainage culture growing Enterobacter. Improving continue IV Zosyn recommend to stop vancomycin. Continue pain management with Percocet and IV morphine counseled regarding narcotics. Further management per general surgery who plans to perform sigmoid resection with Biju colostomy if patient agrees Chronic anemia likely secondary to infection. We'll monitor Abnormal liver function test which could be multifactorial from alcohol and medications as well as infection. CT of the abdomen pelvis reveals no liver lesions. Counseled regarding alcohol abuse and hold Lopid and lovastatin for now. Repeat LFTs in 1 week if still elevated obtain hepatitis profile and liver sonogram. Avoid hepatotoxins TIA. Stable restart aspirin if okay with Dr. Huang Tobacco cessation. Hyperlipidemia. Heart healthy diet Hypertension. Restart lisinopril with as needed clonidine and IV Vasotec COPD. Stable continue albuterol as needed Diabetes mellitus with neuropathy. He does not tolerate Neurontin. Monitor fingersticks with sliding scale coverage. Obtain A1c. Consider restarting glyburide but will continue to hold metformin secondary to abnormal liver function test DVT prophylaxis with SCD, early ambulation and Lovenox Discussed Condition With Patient and RN Damien Rosenberg MD Dec 27, 2016 02:24
[2016-12-27] MEDS ORDERED: ENALAPRILAT 1.25 MG/ML VIAL IV PRN (02:30)
[2016-12-27] MEDS ORDERED: cloNIDine HCL 0.1 MG TAB PO PRN (02:30)
[2016-12-27] MEDS ORDERED: ALBUTEROL SULFATE 90 MCG/ACT HFA 8 GM INHALER INH PRN (02:30)
[2016-12-27] MEDS: PIPERACIL-TAZO 4.5 GM PREMIX 100 ML IV SCH ×2 (04:05→13:00)
[2016-12-27] MEDS: INSULIN ASPART SUPPLEMENTAL SCALE SQ SCH ×5 (04:09→20:56)
[2016-12-27] MEDS ORDERED: GEMFIBROZIL 600 MG TAB PO SCH (07:00)
[2016-12-27] MEDS: DOCUSATE SODIUM 100 MG CAP PO SCH ×2 (08:11→20:50)
[2016-12-27] MEDS: LISINOPRIL 20 MG TAB PO SCH ×2 (08:12→20:50)
[2016-12-27] MEDS: ASPIRIN 325 MG TAB PO SCH (08:12)
[2016-12-27] MEDS: VANCOMYCIN INJ 1,000 MG in SODIUM CHLOR 0.9% 250 ML INJ 250 ML IV SCH ×2 (08:12→20:00)
[2016-12-27 08:19] VITALS: BP 132/89; PULSE 56; RESP 17; TEMP 96.3; O2SAT 96
[2016-12-27] MEDS ORDERED: PRAVASTATIN SOD 40 MG TAB PO SCH (09:00)
--- NOTE | 2016-12-27 09:36 | RADRPT ---
EXAM DATE/TIME: 12/26/2016 12:33 [facility] COMPARISON: CT ABDOMEN & PELVIS W CONTRAST, December 20, 2016, 6:42. INDICATIONS: < Abscess.>> ORAL CONTRAST: No oral contrast ingested. RADIATION DOSE: 13.15 CTDIvol (mGy) MEDICAL HISTORY: Chronic obstructive pulmonary disease. Hypertension. Diabetes SURGICAL HISTORY: Abscess drain, hernia repair ENCOUNTER: Subsequent ACUITY: 1 day PAIN SCALE: 5/10 LOCATION: Right lateral abdomen TECHNIQUE: Volumetric scanning of the abdomen was performed. Using automated exposure control and adjustment of the mA and/or kV according to patient size, radiation dose was kept as low as reasonably achievable to obtain optimal diagnostic quality images. FINDINGS: Patient has situs inversus. There is a drain in the right anterior abdominal wall coiling just under neath the rectus muscles. The previous large abscess seen on the is no longer identified. The adjacent c olon remains abnormal with a markedly thickened wall. There is some fluid which I cannot be sure is actually intr aluminal. The extensive adjacent diverticulosis in the areas of colon not affected by the wall thickening. The liver, gallbladder, adrenal gland and kidneys are unremarkable. Patient has previous hernia mes h with a continued eventration along the umbilicus. CONCLUSION: Drain has been placed with excellent result. I do not see any residual fluid along the anterior abdo bernardo wall on the right although there is some adjacent fluid to the colon. Shukri Moses MD on December 26, 2016 at 16:18 Board Certified Radiologist. This report was verified electronically.
--- NOTE | 2016-12-27 10:45 | HHI.PR ---
Subjective Remarks in no distress. mild abdominal pain. no nausea, vomiting or fever. Objective Vitals Vital Signs Date Time Temp Pulse Resp B/P Pulse Ox O2 Delivery O2 Flow Rate FiO2 12/27/16 08:19 96.3 56 17 132/89 96 12/27/16 00:00 96.2 64 21 134/88 95 12/26/16 20:00 98.0 76 21 154/85 98 12/26/16 16:00 96.0 78 20 167/97 98 12/26/16 12:00 96.0 65 20 162/90 95 I/O 12/26/16 12/26/16 12/26/16 12/27/16 12/27/16 12/27/16 07:00 15:00 23:00 07:00 15:00 23:00 Intake Total 460 ml 240 ml 590 ml 340 ml Output Total 7 ml Balance 460 ml 240 ml 583 ml 340 ml Intake Oral 360 ml 240 ml 240 ml 240 ml IV Total 100 ml 350 ml 100 ml Drainage Total 7 ml # Voids 2 2 2 3 # Bowel Movements 0 1 0 1 Result Diagram: 12/24/16 0425 12/24/16 0425 Imaging Last Impressions Abdomen CT 12/26/16 0000 Signed Impressions: Service Date/Time: Monday, December 26, 2016 12:33 - CONCLUSION: Drain has been placed with excellent result. I do not see any residual fluid along the anterior abdominal wall on the right although there is some adjacent fluid to the colon. Shukri Moses MD Abscess Drainage CT 12/21/16 0000 Signed Impressions: Service Date/Time: Wednesday, December 21, 2016 08:16 - CONCLUSION: Uncomplicated CT guided drainage right lower abdominal wall abscess. Jose Garcia MD FACR Abdomen/Pelvis CT 12/20/16 0606 Signed Impressions: Service Date/Time: Tuesday, December 20, 2016 06:42 - CONCLUSION: 1. Thickening of the proximal descending colon in the right upper quadrant likely related to diverticulitis. An underlying mass cannot be excluded in the clinical situation. 2. Thickening and fluid in the right anterior abdominal wall likely related to inflammatory change and abscess. The patient previously had a drain in this region. Rob Nunez MD Objective Remarks GENERAL: This is a well-nourished, well-developed patient, in no apparent distress. CARDIOVASCULAR: Regular rate and regular rhythm without murmurs, gallops, or rubs. RESPIRATORY: Clear to auscultation. Breath sounds equal bilaterally. No wheezes , rales, or rhonchi. GASTROINTESTINAL: Abdomen soft, non-tender, nondistended. Normal, active bowel sounds MUSCULOSKELETAL: Extremities without clubbing, cyanosis, or edema. NEURO: Alert & Oriented x4 to person, place, time, situation. Moves all ext x4 Medications and IVs Current Medications IV Flush 2 ml 2 ml UNSCH PRN IVF FLUSH AFTER USING IV ACCESS Last administered on 12/21/16 12:02; Start 12/20/16 at 06:00 Sodium Chloride (NS 1000 ml Inj) 1,000 ml @ 999 mls/hr BOLUS ONCE IV Last administered on 12/20/16 06:20; Start 12/20/16 at 06:15; Stop 12/20/16 at 07:15 ; Status DC Hydromorphone HCl (Dilaudid Pf Inj) 1 mg ONCE ONCE IV PUSH Last administered on 12/20/16 06:20; Start 12/20/16 at 06:15; Stop 12/20/16 at 06:16; Status DC Ondansetron HCl (Zofran Inj) 4 mg ONCE ONCE IV PUSH Last administered on 06:21; Start 12/20/16 at 06:15; Stop 12/20/16 at 06:16; Status DC Iohexol (Omnipaque 350 Inj) 100 ml STK-MED ONCE IV Last administered on 06:52; Start 12/20/16 at 06:52; Stop 12/20/16 at 06:53; Status DC Hydromorphone HCl 0.5 mg 0.5 mg ONCE ONCE IV PUSH Last administered on 07:54; Start 12/20/16 at 07:45; Stop 12/20/16 at 07:46; Status DC Vancomycin HCl 1350 mg/Sodium Chloride 513.5 ml @ 250 mls/hr ONCE ONCE IV Last administered on 12/20/16 08:33; Start 12/20/16 at 07:45; Stop 12/20/16 at 09:48; Status DC Piperacillin Sod/ Tazobactam Sod 50 ml @ 100 mls/hr ONCE ONCE IV Last administered on 12/20/16 08:32; Start 12/20/16 at 07:45; Stop 12/20/16 at 08:14 ; Status DC Potassium Chloride/Dextrose/ Sod Cl (D5-1/2 NS + KCl 20 Meq Inj) 1,000 ml @ 125 mls/hr Q8H IV Last administered on 12/20/16 08:34; Start 12/20/16 at 07:45 ; Stop 12/20/16 at 11:44; Status DC Hydromorphone HCl (Dilaudid Pf Inj) 1 mg Q2HR PRN IV PUSH breakthrough pain Last administered on 12/22/16 14:13; Start 12/20/16 at 11:45 Enoxaparin Sodium 40 mg 40 mg Q24H SQ Last administered on 12/20/16 13:32; Start 12/20/16 at 13:00; Stop 12/22/16 at 15:22; Status DC Vancomycin HCl 1000 mg/Sodium Chloride 250 ml @ 250 mls/hr Q12H IV Last administered on 12/27/16 08:12; Start 12/20/16 at 20:00 Piperacillin Sod/ Tazobactam Sod (Zosyn 4.5 Gm Premix) 100 ml @ 200 mls/hr Q8H IV Last administered on 12/27/16 04:05; Start 12/20/16 at 13:00 Ondansetron HCl (Zofran Inj) 4 mg Q4H PRN IV NAUSEA Last administered on 01:09; Start 12/21/16 at 00:30 Fentanyl Citrate (fentaNYL INJ) 250 mcg STK-MED ONCE .ROUTE Last administered on 12/21/16 07:51; Start 12/21/16 at 07:51; Stop 12/21/16 at 07:52; Status DC Midazolam HCl (Versed Inj) 5 mg STK-MED ONCE .ROUTE Last administered on 07:51; Start 12/21/16 at 07:51; Stop 12/21/16 at 07:52; Status DC Lidocaine/ Epinephrine (Xylocaine-Epi 1%-1:100,000 Inj) 20 ml STK-MED ONCE .ROUTE ; Start 12/21/16 at 07:52; Stop 12/21/16 at 07:53; Status DC Diphenhydramine HCl (Benadryl) 25 mg Q6H PRN PO ITCHING Last administered on 05:58; Start 12/22/16 at 05:15 Enoxaparin Sodium (Lovenox Inj) 40 mg Q24H SQ Last administered on 12/26/16 15 :02; Start 12/22/16 at 16:00 Oxycodone/ Acetaminophen (Percocet 10-325 Mg) 1 tab Q4H PRN PO PAIN 5-10 Last administered on 12/27/16 08:11; Start 12/22/16 at 14:30 Dextrose (D50w (Vial) Inj) 25 ml UNSCH PRN IV PUSH HYPOGLYCEMIA-SEE COMMENTS; Start 12/27/16 at 02:15 Glucagon (Glucagon Inj) 1 mg UNSCH PRN OTHER HYPOGLYCEMIA-SEE COMMENTS; Start 12/27/16 at 02:15 Insulin Aspart (NovoLOG SUPPLEMENTAL SCALE) 1 ACHS SLIDING SCALE SQ ; Start at 07:00 Acetaminophen (Tylenol) 650 mg Q4H PRN PO TEMP > 100.4; Start 12/27/16 at 02:15 Bisacodyl (Dulcolax Supp) 10 mg DAILY PRN CA CONSTIPATION; Start 12/27/16 at 02 :15 Docusate Sodium (Colace) 100 mg Q12H PO Last administered on 12/27/16 08:11; Start 12/27/16 at 09:00 Magnesium Hydroxide (Milk Of Magnesia Liq) 30 ml Q12H PRN PO CONSTIPATION; Start 12/27/16 at 02:15 Sennosides (Senokot) 17.2 mg Q12H PRN PO CONSTIPATION; Start 12/27/16 at 02:15 Acetaminophen (Tylenol) 650 mg Q6H PRN PO PAIN SCALE 1 TO 2; Start 12/27/16 at 02:15 Acetaminophen/ Hydrocodone Bitart (Ingraham 5-325 Mg) 1 tab Q4H PRN PO PAIN SCALE 3 TO 5; Start 12/27/16 at 02:15 Naloxone HCl (Narcan Inj) 0.4 mg UNSCH PRN IV SEE LABEL COMMENTS; Start at 02:15 Enalaprilat (Vasotec Inj) 1.25 mg Q6H PRN IV SBP> OR = 180, DBP> OR = 100; Start 12/27/16 at 02:30 Clonidine (Catapres) 0.1 mg Q6H PRN PO SBP> OR = 180, DBP> OR = 100; Start at 02:30 Albuterol Sulfate (Proair Hfa Inh) 1 puff Q4H PRN INH SHORTNESS OF BREATH; Start 12/27/16 at 02:30 Aspirin (Aspirin) 325 mg DAILY PO Last administered on 12/27/16 08:12; Start 12/27/16 at 09:00 Gemfibrozil (Lopid) 600 mg BIDAC PO ; Start 12/27/16 at 07:00; Stop 12/27/16 at 07:00; Status DC Lisinopril (Prinivil) 20 mg BID PO Last administered on 12/27/16 08:12; Start 12/27/16 at 09:00 Pravastatin Sodium (Pravachol) 40 mg DAILY PO ; Start 12/27/16 at 09:00; Stop at 09:00; Status DC A/P Assessment and Plan A/P Recurrent diverticulitis status post percutaneous drainage culture growing Enterobacter. Improving continue IV Zosyn recommend to stop vancomycin. Continue pain management . Further management per general surgery who plans to perform sigmoid resection with Biju colostomy if patient agrees. Chronic anemia likely secondary to infection. We'll monitor Abnormal liver function test which could be multifactorial from alcohol and medications as well as infection. CT of the abdomen pelvis reveals no liver lesions. Counseled regarding alcohol abuse and hold Lopid and lovastatin for now. Repeat LFTs in 1 week if still elevated obtain hepatitis profile and liver sonogram. Avoid hepatotoxins TIA. Stable restart aspirin if okay with Dr. Huang Tobacco cessation. Hyperlipidemia. Heart healthy diet Hypertension. Restarted lisinopril with as needed clonidine and IV Vasotec COPD. Stable continue albuterol as needed Diabetes mellitus with neuropathy. He does not tolerate Neurontin. Monitor fingersticks with sliding scale coverage. A1c pending. Consider restarting glyburide but will continue to hold metformin secondary to abnormal liver function test DVT prophylaxis with SCD, early ambulation and Lovenox Discharge Planning dc planning per surgery. Jared Kat MD Dec 27, 2016 10:45
[2016-12-27 12:30] VITALS: BP 123/75; PULSE 63; RESP 16; TEMP 96.8; O2SAT 97
[2016-12-27] MEDS: ENOXAPARIN SODIUM 40 MG/0.4 ML SYRINGE SQ SCH (15:58)
[2016-12-27 16:19] VITALS: BP 146/78; PULSE 66; RESP 17; TEMP 96.4; O2SAT 98
[2016-12-27 16:22] LABS: HEMOGLOBIN A1a 1.4 %; HEMOGLOBIN Ao 83.5 %; HEMOGLOBIN F 1.1 %; HEMOGLOBIN LA1C 2.2 %; HEMOGLOBIN P3 5.9 %
[2016-12-27 20:00] VITALS: BP 139/83; PULSE 60; RESP 21; TEMP 98.2; O2SAT 97
[2016-12-27] MEDS: SODIUM CHLORIDE 0.9% FLUSH 5 ML FLUSH IVF PRN (20:51)
[2016-12-28] VITALS: BP 117/56; PULSE 62; RESP 21; TEMP 96.8; O2SAT 94
[2016-12-28] MEDS: PIPERACIL-TAZO 4.5 GM PREMIX 100 ML IV SCH ×3 (00:05→13:40)
[2016-12-28] MEDS: SODIUM CHLORIDE 0.9% FLUSH 5 ML FLUSH IVF PRN ×2 (00:05→05:14)
[2016-12-28] MEDS: oxyCODONE/ACETAMINOPHEN 10 MG/325 MG TAB PO PRN ×2 (00:50→05:13)
[2016-12-28] MEDS: INSULIN ASPART SUPPLEMENTAL SCALE SQ SCH ×2 (07:00→11:00)
[2016-12-28 08:00] VITALS: BP 127/83; PULSE 64; RESP 19; TEMP 97.5; O2SAT 97
[2016-12-28] MEDS: ASPIRIN 325 MG TAB PO SCH (09:03)
[2016-12-28] MEDS: VANCOMYCIN INJ 1,000 MG in SODIUM CHLOR 0.9% 250 ML INJ 250 ML IV SCH (09:03)
[2016-12-28] MEDS: ACETAMINOPHEN/HYDROcodone 325 MG/5 MG TAB PO PRN ×2 (09:04→13:06)
[2016-12-28] MEDS: DOCUSATE SODIUM 100 MG CAP PO SCH (09:04)
[2016-12-28] MEDS: LISINOPRIL 20 MG TAB PO SCH (09:04)
[2016-12-28] MEDS ORDERED: OXYC1CAP PO (11:31)
--- NOTE | 2016-12-28 11:34 | HHI.PR ---
Subjective Remarks resting comfortably with no distress. abdominal pain is mild. d/w the RN and no acute issues over night. Objective Vitals Vital Signs Date Time Temp Pulse Resp B/P Pulse Ox O2 Delivery O2 Flow Rate FiO2 12/28/16 08:00 97.5 64 19 127/83 97 12/28/16 00:00 96.8 62 21 117/56 94 12/27/16 20:00 98.2 60 21 139/83 97 12/27/16 16:19 96.4 66 17 146/78 98 12/27/16 12:30 96.8 63 16 123/75 97 I/O 12/27/16 12/27/16 12/27/16 12/28/16 12/28/16 12/28/16 07:00 15:00 23:00 07:00 15:00 23:00 Intake Total 340 ml 960 ml 592 ml 360 ml Balance 340 ml 960 ml 592 ml 360 ml Intake Oral 240 ml 960 ml 480 ml 360 ml IV Total 100 ml 112 ml # Voids 3 63 2 3 # Bowel Movements 1 0 0 0 Result Diagram: 12/24/16 0425 12/24/16 0425 Imaging Last Impressions Abdomen CT 12/26/16 0000 Signed Impressions: Service Date/Time: Monday, December 26, 2016 12:33 - CONCLUSION: Drain has been placed with excellent result. I do not see any residual fluid along the anterior abdominal wall on the right although there is some adjacent fluid to the colon. Shukri Moses MD Abscess Drainage CT 12/21/16 0000 Signed Impressions: Service Date/Time: Wednesday, December 21, 2016 08:16 - CONCLUSION: Uncomplicated CT guided drainage right lower abdominal wall abscess. Jose Garcia MD FACR Abdomen/Pelvis CT 12/20/16 0606 Signed Impressions: Service Date/Time: Tuesday, December 20, 2016 06:42 - CONCLUSION: 1. Thickening of the proximal descending colon in the right upper quadrant likely related to diverticulitis. An underlying mass cannot be excluded in the clinical situation. 2. Thickening and fluid in the right anterior abdominal wall likely related to inflammatory change and abscess. The patient previously had a drain in this region. Rob Nunez MD Objective Remarks GENERAL: This is a well-nourished, well-developed patient, in no apparent distress. CARDIOVASCULAR: Regular rate and regular rhythm without murmurs, gallops, or rubs. RESPIRATORY: Clear to auscultation. Breath sounds equal bilaterally. No wheezes , rales, or rhonchi. GASTROINTESTINAL: Abdomen soft, non-tender, nondistended. Normal, active bowel sounds MUSCULOSKELETAL: Extremities without clubbing, cyanosis, or edema. NEURO: Alert & Oriented x4 to person, place, time, situation. Moves all ext x4 Medications and IVs Current Medications IV Flush 2 ml 2 ml UNSCH PRN IVF FLUSH AFTER USING IV ACCESS Last administered on 12/28/16 05:14; Start 12/20/16 at 06:00 Sodium Chloride (NS 1000 ml Inj) 1,000 ml @ 999 mls/hr BOLUS ONCE IV Last administered on 12/20/16 06:20; Start 12/20/16 at 06:15; Stop 12/20/16 at 07:15 ; Status DC Hydromorphone HCl (Dilaudid Pf Inj) 1 mg ONCE ONCE IV PUSH Last administered on 12/20/16 06:20; Start 12/20/16 at 06:15; Stop 12/20/16 at 06:16; Status DC Ondansetron HCl (Zofran Inj) 4 mg ONCE ONCE IV PUSH Last administered on 06:21; Start 12/20/16 at 06:15; Stop 12/20/16 at 06:16; Status DC Iohexol (Omnipaque 350 Inj) 100 ml STK-MED ONCE IV Last administered on 06:52; Start 12/20/16 at 06:52; Stop 12/20/16 at 06:53; Status DC Hydromorphone HCl 0.5 mg 0.5 mg ONCE ONCE IV PUSH Last administered on 07:54; Start 12/20/16 at 07:45; Stop 12/20/16 at 07:46; Status DC Vancomycin HCl 1350 mg/Sodium Chloride 513.5 ml @ 250 mls/hr ONCE ONCE IV Last administered on 12/20/16 08:33; Start 12/20/16 at 07:45; Stop 12/20/16 at 09:48; Status DC Piperacillin Sod/ Tazobactam Sod 50 ml @ 100 mls/hr ONCE ONCE IV Last administered on 12/20/16 08:32; Start 12/20/16 at 07:45; Stop 12/20/16 at 08:14 ; Status DC Potassium Chloride/Dextrose/ Sod Cl (D5-1/2 NS + KCl 20 Meq Inj) 1,000 ml @ 125 mls/hr Q8H IV Last administered on 12/20/16 08:34; Start 12/20/16 at 07:45 ; Stop 12/20/16 at 11:44; Status DC Hydromorphone HCl (Dilaudid Pf Inj) 1 mg Q2HR PRN IV PUSH breakthrough pain Last administered on 12/22/16 14:13; Start 12/20/16 at 11:45 Enoxaparin Sodium 40 mg 40 mg Q24H SQ Last administered on 12/20/16 13:32; Start 12/20/16 at 13:00; Stop 12/22/16 at 15:22; Status DC Vancomycin HCl 1000 mg/Sodium Chloride 250 ml @ 250 mls/hr Q12H IV Last administered on 12/28/16 09:03; Start 12/20/16 at 20:00 Piperacillin Sod/ Tazobactam Sod (Zosyn 4.5 Gm Premix) 100 ml @ 200 mls/hr Q8H IV Last administered on 12/28/16 05:14; Start 12/20/16 at 13:00 Ondansetron HCl (Zofran Inj) 4 mg Q4H PRN IV NAUSEA Last administered on 01:09; Start 12/21/16 at 00:30 Fentanyl Citrate (fentaNYL INJ) 250 mcg STK-MED ONCE .ROUTE Last administered on 12/21/16 07:51; Start 12/21/16 at 07:51; Stop 12/21/16 at 07:52; Status DC Midazolam HCl (Versed Inj) 5 mg STK-MED ONCE .ROUTE Last administered on 07:51; Start 12/21/16 at 07:51; Stop 12/21/16 at 07:52; Status DC Lidocaine/ Epinephrine (Xylocaine-Epi 1%-1:100,000 Inj) 20 ml STK-MED ONCE .ROUTE ; Start 12/21/16 at 07:52; Stop 12/21/16 at 07:53; Status DC Diphenhydramine HCl (Benadryl) 25 mg Q6H PRN PO ITCHING Last administered on 05:58; Start 12/22/16 at 05:15 Enoxaparin Sodium (Lovenox Inj) 40 mg Q24H SQ Last administered on 12/27/16 15 :58; Start 12/22/16 at 16:00 Oxycodone/ Acetaminophen (Percocet 10-325 Mg) 1 tab Q4H PRN PO PAIN 5-10 Last administered on 12/28/16 05:13; Start 12/22/16 at 14:30 Dextrose (D50w (Vial) Inj) 25 ml UNSCH PRN IV PUSH HYPOGLYCEMIA-SEE COMMENTS; Start 12/27/16 at 02:15 Glucagon (Glucagon Inj) 1 mg UNSCH PRN OTHER HYPOGLYCEMIA-SEE COMMENTS; Start 12/27/16 at 02:15 Insulin Aspart (NovoLOG SUPPLEMENTAL SCALE) 1 ACHS SLIDING SCALE SQ Last administered on 12/27/16 11:10; Start 12/27/16 at 07:00 Acetaminophen (Tylenol) 650 mg Q4H PRN PO TEMP > 100.4; Start 12/27/16 at 02:15 Bisacodyl (Dulcolax Supp) 10 mg DAILY PRN MS CONSTIPATION; Start 12/27/16 at 02 :15 Docusate Sodium (Colace) 100 mg Q12H PO Last administered on 12/28/16 09:04; Start 12/27/16 at 09:00 Magnesium Hydroxide (Milk Of Magnesia Liq) 30 ml Q12H PRN PO CONSTIPATION; Start 12/27/16 at 02:15 Sennosides (Senokot) 17.2 mg Q12H PRN PO CONSTIPATION; Start 12/27/16 at 02:15 Acetaminophen (Tylenol) 650 mg Q6H PRN PO PAIN SCALE 1 TO 2; Start 12/27/16 at 02:15 Acetaminophen/ Hydrocodone Bitart ([place] 5-325 Mg) 1 tab Q4H PRN PO PAIN SCALE 3 TO 5 Last administered on 12/28/16 09:04; Start 12/27/16 at 02:15 Naloxone HCl (Narcan Inj) 0.4 mg UNSCH PRN IV SEE LABEL COMMENTS; Start at 02:15 Enalaprilat (Vasotec Inj) 1.25 mg Q6H PRN IV SBP> OR = 180, DBP> OR = 100; Start 12/27/16 at 02:30 Clonidine (Catapres) 0.1 mg Q6H PRN PO SBP> OR = 180, DBP> OR = 100; Start at 02:30 Albuterol Sulfate (Proair Hfa Inh) 1 puff Q4H PRN INH SHORTNESS OF BREATH; Start 12/27/16 at 02:30 Aspirin (Aspirin) 325 mg DAILY PO Last administered on 12/28/16 09:03; Start at 09:00 Gemfibrozil (Lopid) 600 mg BIDAC PO ; Start 12/27/16 at 07:00; Stop 12/27/16 at 07:00; Status DC Lisinopril (Prinivil) 20 mg BID PO Last administered on 12/28/16 09:04; Start 12/27/16 at 09:00 Pravastatin Sodium (Pravachol) 40 mg DAILY PO ; Start 12/27/16 at 09:00; Stop at 09:00; Status DC A/P Assessment and Plan A/P Recurrent diverticulitis status post percutaneous drainage culture growing Enterobacter. Improving - Continue pain management . Further management per general surgery who plans to perform sigmoid resection with Biju colostomy if patient agrees. Chronic anemia likely secondary to infection. We'll monitor Abnormal liver function test which could be multifactorial from alcohol and medications as well as infection. CT of the abdomen pelvis reveals no liver lesions. Counseled regarding alcohol abuse and hold Lopid and lovastatin for now. Repeat LFTs in 1 week if still elevated obtain hepatitis profile and liver sonogram. Avoid hepatotoxins TIA. Stable restart aspirin if okay with Dr. Huang Tobacco cessation. Hyperlipidemia. Heart healthy diet Hypertension. Restarted lisinopril with as needed clonidine and IV Vasotec COPD. Stable continue albuterol as needed Diabetes mellitus with neuropathy. He does not tolerate Neurontin. Monitor fingersticks with sliding scale coverage. A1c 6. Consider restarting glyburide but will continue to hold metformin secondary to abnormal liver function test DVT prophylaxis with SCD, early ambulation and Lovenox Discharge Planning dc planning per surgery. Jared Kat MD Dec 28, 2016 11:34
[2016-12-28] MEDS ORDERED: METR-1 PO (14:44)
[2016-12-28] MEDS ORDERED: AUGM875T PO (14:47)
--- NOTE | 2016-12-28 14:49 | PD.CAR.PN ---
CVT Progress Note Subjective/Hospital Course: Patient with the perforated sigmoid diverticulitis into the anterior abdominal wall Underwent successful placement of a percutaneous drainage catheter I'll let this drain for a few days and decompressed and then patient will undergo sigmoid resection with Biju colostomy Patient had fallen out of the follow-up because he did not respond to any male email or telephone calls and did not follow with a gastroenterology as he was advised Patient stasis changes phone numbers few times and address and has to confusion Patient is completely noncompliant with his care and now has a recurrent localized perforation This of course could be very well carcinoma of the colon rather than just the abscess and I have explained to the patient Patient remain on clear liquids and then undergo sigmoid resection and Biju colostomy early next week 12/22/2016 Patient doing very well today Abdomen soft active bowel sounds and right abdominal wall collection has decreased in size and tenderness is minimal Will continue IV antibiotics to calm down the whole process and then proceed with sigmoid resection and Biju colostomy early next week Have discussed this with the patient and there is no way we can do primary anastomosis in the face of this severe infection and perforation into the anterior abdominal wall Patient will need to have colostomy at least for 3-4 months and then we can think about reversing this 12/23/2016 Patient doing very well Abdomen is soft and active bowel sounds he is having bowel movements and tolerating diet well Swelling of the right anterior abdominal wall has no decreased with drainage and the drainage itself has diminished greatly Will continue antibiotic therapy and early next week proceed with Biju resection Doing a full colonoscopy prior to surgery would be a perfect case scenario however in this situation with an active abscess and localized perforation this is not an option For Biju next week 12/24/2016 Abdomen soft with active bowel sounds and tolerating diet well Drainage from the pigtail catheter is minimal and swelling of the right anterior abdominal wall had decreased Patient will have GoLYTELY on Monday and have the sigmoid resection with Biju colostomy on Monday Discussed with the patient 12/25/16 Abdomen soft active bowel sounds patient tolerating diet well The swelling of the right abdominal wall has diminished significantly At this point I discussed with patient the option of surgery as far as Biju colostomy is concerned and patient does not want the surgery until he gets insurance I assured him that the presence or absence of insurance should be the least of his problems at this point nonetheless patient refuses to have surgery unless he is placed in some sort of medical insurance Apparently is working with our the case management and the financial assist Therefore I'll postpone the surgery probably discharge patient on by mouth antibiotics but this is lesser of the 2 options and I believe it's indicated to proceed with surgery at this admission I've explained this in detail to the patient yet he persists 12/28/16 Patient should now undergo elective surgery however patient refuses because he doesn't have insurance At this point I'll discharge the patient on by mouth antibiotics because that is the next best thing we can do with understanding that this infection will return and he will end up with a colostomy in the near future No matter how much explained to the patient he refuses surgery at this time DC home with Flagyl and Augmentin with follow-up with my office Objective: Vital Signs Date Time Temp Pulse Resp B/P Pulse Ox O2 Delivery O2 Flow Rate FiO2 12/28/16 08:00 97.5 64 19 127/83 97 12/28/16 00:00 96.8 62 21 117/56 94 12/27/16 20:00 98.2 60 21 139/83 97 12/27/16 16:19 96.4 66 17 146/78 98 Result Diagram: 12/24/16 0425 12/24/16 0425 Maximino Pierre MD Dec 28, 2016 14:49
--- NOTE | 2017-02-25 18:19 | MD ---
cc: MD DARRIN,YECENIA ADMISSION DATE: 12/20/2016 DISCHARGE DATE: 12/28/2016 HISTORY OF PRESENT DISEASE This 56-year-old male who is completely noncompliant with his medical care presented multiple times to this hospital. Last time admitted the patient had localized perforation of the sigmoid colon, anterior abdominal wall and also has situs viscerum inversus. He was drained percutaneously, treated with antibiotics and elective colonoscopy and resection was planned in the near future. The patient fell out of followup, never followed up with advertising rep, did not show up in my office and we could not reach him. Now the patient comes back with recurrent swelling of the right side and recurrent diverticulitis of localized abscess. The patient was admitted, treated. Appropriate services were consulted. He had repeat CAT scan and successful drainage of a percutaneous drainage catheter again. Right abdominal wall collection decreased over the next few days and the patient was then discharged on 12/28/2016 after refusing to have surgery at this admission. I offered the patient elective surgery with primary resection to avoid Biju resection but the patient refuses, states he does not have insurance, he will leave. I have made him understand that the infection will return. No matter how much I explained to the patient refuses surgery. He is discharged home on Flagyl, Augmentin with follow-up in my office. As I am dictating this discharge summary on February 19, 2017 the patient has cancelled several appointments and on other times we could not reach him for followup. Yecenia RICE/ALONA /3:14 PM /5:51 PM DAVID
[2017-03-06] MEDS ORDERED: METF500T PO ×2 (14:35→14:53)
[2017-03-06] MEDS ORDERED: GEMF600T PO (14:35)
[2017-03-06] MEDS ORDERED: LOVA40TA PO ×2 (14:35→14:58)
[2017-03-06] MEDS ORDERED: GLIP5TAB8 PO (14:53)
[2017-03-06] MEDS ORDERED: LISI-515 PO (14:53)
[2017-03-06] MEDS ORDERED: AMIT75TA2 PO (14:58)
== END 2016-12-28 15:46 | disposition home or self-care (01) | DRG 392 ==
LOC: NEPE 05:38 → NEDA 07:45 → N07A 15:22
PROVIDERS: ADMIT Surgery; ATTEND Surgery
PROC: 0W9F30Z Drainage of Abdominal Wall with Drainage Device, Percutaneous Approach (ICD-10-PCS; principal; 2016-12-21)
DX: K57.20 Diverticulitis of large intestine with perforation and abscess without bleeding (principal); Q89.3 Situs inversus; E11.40 Type 2 diabetes mellitus with diabetic neuropathy, unspecified; I10 Essential (primary) hypertension; D64.9 Anemia, unspecified; J44.9 Chronic obstructive pulmonary disease, unspecified; E78.5 Hyperlipidemia, unspecified; F17.210 Nicotine dependence, cigarettes, uncomplicated; K21.9 Gastro-esophageal reflux disease without esophagitis; Z79.84 Long term (current) use of oral hypoglycemic drugs
CPT/HCPCS: 74150; 74177; 75989; 76937; 80048; 80053; 81001; 82948; 83036; 83690; 85025; 85027; 85730; 87070; 87077; 87186; 87205; 96374; 96375; C1729; J1170; J1650; J1815; J2250; J2405; J2543; J3010; J3370; J3480; J7030; J7040; J7050; Q9967

== ENCOUNTER → 2017-03-17 | Outpatient (CLI) | payer OTHER ==
[~2017-03-17] MED LIST changes: +AMIT75TA2 PO; -AUGM500T7 PO; -METF1000 PO; +METF500T PO; -METR-1 PO; +OXYC1CAP PO; -OXYC1TAB63 PO
[2017-03-17 07:54] LABS: AUTOMATED NEUTROPHIL # 7.9 TH/MM3 (1.8-7.7); BASOPHIL % 0.2 % (0.0-2.0); EOSINOPHIL # 0.2 TH/MM3 (0-0.4); EOSINOPHIL % 1.5 % (0.0-4.0); HEMATOCRIT 40.1 % (39.0-51.0); HEMO FLAGS DIFF FINAL; LYMPH % 20.4 % (9.0-44.0); LYMPHOCYTE # 2.3 TH/MM3 (1.0-4.8); MEAN CELL VOLUME 69.7 FL (80.0-100.0); MEAN CORPUSCULAR HEMOGLOBIN 22.4 PG (27.0-34.0); MEAN CORPUSCULAR HGB CONC 32.2 % (32.0-36.0); MONO % 6.9 % (0.0-8.0); PLATELET COUNT 308 TH/MM3 (150-450); RED BLOOD COUNT 5.75 MIL/MM3 (4.50-5.90); RED CELL DISTRIBUTION WIDTH 20.2 % (11.6-17.2); WHITE BLOOD COUNT 11.1 TH/MM3 (4.0-11.0)
[2017-03-17 08:59] LABS: ALKALINE PHOSPHATASE 93 U/L (45-117); ALT (GPT) 29 U/L (12-78); ANION GAP 12 MEQ/L (5-15); AST (GOT) 24 U/L (15-37); BLOOD UREA NITROGEN 46 MG/DL (7-18); CHLORIDE 107 MEQ/L (98-107); GLOMERULAR FILTRATION RATE 46 ML/MIN (>89); GLUCOSE,FASTING 89 MG/DL (74-99); LDL CHOLESTEROL 72 MG/DL (0-99); POTASSIUM 4.5 MEQ/L (3.5-5.1); SODIUM (NA) 141 MEQ/L (136-145); TOTAL BILIRUBIN ADULT 0.4 MG/DL (0.2-1.0)
[2017-03-17 14:25] LABS: HEMOGLOBIN A1a 1.7 %; HEMOGLOBIN A1b 2.3 %; HEMOGLOBIN Ao 81.7 %; HEMOGLOBIN LA1C 2.3 %; HEMOGLOBIN P3 6.4 %
== END ==
LOC: CLAB 07:31
PROVIDERS: ATTEND Family Medicine
DX: K57.20 Diverticulitis of large intestine with perforation and abscess without bleeding (principal); E11.9 Type 2 diabetes mellitus without complications; Q24.0 Dextrocardia; E66.9 Obesity, unspecified; Z72.0 Tobacco use
CPT/HCPCS: 36415; 80053; 80061; 83036; 84443; 85025

== ENCOUNTER 2017-05-22 09:53 | Inpatient (IN) | payer OTHER ==
[~2017-05-22] VITALS: Ht 185.4 cm; Wt 106.0 kg
[2017-05-22 09:55] VITALS: BP 124/79; PULSE 94; RESP 20; TEMP 99.1; O2SAT 97
[2017-05-22] MEDS ORDERED: SODIUM CHLORIDE 0.9% FLUSH 10 ML FLUSH IV FLUSH PRN (10:15)
--- NOTE | 2017-05-22 10:24 | PD ---
HPI Chief Complaint: GI Complaint Time Seen by Provider: 10:22 Travel History International Travel<30 days: No Contact w/Intl Traveler<30days: No Traveled to known affect area: No History of Present Illness HPI 57-year-old male with history of diverticulitis, hypertension, presents to the ER today for right upper quadrant abdominal pains as been going on for about 3- 4 days, he has been nauseous. He denies any vomiting, fevers, diarrhea, or any other symptoms. He states it feels like the last time he had diverticulitis. Pain is currently rated a 7 out of 10. Modifying Factors: None Associated Signs & Symptoms: Right upper quadrant abdominal pain and nausea Risk Factors: None PFSH Past Medical History Hx Anticoagulant Therapy: Yes (ASA 325MG) Arthritis: Yes Asthma: No Autoimmune Disease: No Blood Disorders: No Anxiety: No Depression: Yes Heart Rhythm Problems: No Cancer: No Cardiovascular Problems: Yes (HTN) High Cholesterol: Yes Chemotherapy: No Chest Pain: No Congestive Heart Failure: No COPD: Yes Cerebrovascular Accident: Yes Diabetes: Yes (METFORMIN) Patient Takes Glucophage: No Diminished Hearing: No Diverticulitis: Yes Endocrine: No Gastrointestinal Disorders: Yes (HIATAL HERNIA; ABD HERNIA, ULCER) GERD: Yes Genitourinary: No Hepatitis: No Hiatal Hernia: Yes Hypertension: Yes Immune Disorder: No Implanted Vascular Access Dvce: No Medical other: Yes (GERD, HX ULCERS, SEIZURES , HEART, LIVER AND OTHER ORGANS ON OPPOSITE SIDE) Musculoskeletal: Yes (ARTHRITIS) Neurologic: Yes (VERTIGO ) Psychiatric: No Reproductive: No Respiratory: Yes (ASTHMA, COPD) Immunizations Current: Yes Migraines: No Myocardial Infarction: No Radiation Therapy: No Seizures: Yes ( A KID) Sleep Apnea: Yes Thyroid Disease: No Triglycerides - High: Yes Ulcer: Yes Past Surgical History Abdominal Surgery: Yes (12/11 LAP HIATAL HERNIA; 06/10 REPAIR INCISIONAL HERNIA) Body Medical Devices: MESH Cardiac Surgery: No Ear Surgery: No Endocrine Surgery: No Eye Surgery: No Genitourinary Surgery: No Gynecologic Surgery: No Joint Replacement: No Oral Surgery: Yes (EGD 09/09) Pacemaker: No Thoracic Surgery: No Other Surgery: Yes (lap hiatal hernia repair) Social History Alcohol Use: Yes ("NOT TOO MUCH" once a month) Tobacco Use: Yes ("NOT EVERY DAY") Substance Use: No Allergies-Medications (Allergen,Severity, Reaction): Coded Allergies: No Known Allergies (Verified , 05/22/17) Reported Meds & Prescriptions Reported Meds & Active Scripts Active Lovastatin 40 Mg Tab 40 Mg PO DAILY Metformin (Metformin HCl) 500 Mg Tab 500 Mg PO BIDPC With meals Lisinopril 20 Mg Tab 20 Mg PO BID Glipizide 5 Mg Tab 5 Mg PO DAILY Take 30 minutes before a meal Reported Proventil Hfa 6.7 GM Inh (Albuterol Sulfate) 90 Mcg/Act Aer 1 Puff INH Q4H PRN Aspirin 325 Mg Tab 325 Mg PO DAILY Review of Systems Except as stated in HPI: all other systems reviewed are Neg Physical Exam Narrative GENERAL: Well-developed middle age white male patient currently in mild distress. Awake and oriented 3. SKIN: Focused skin assessment warm/dry. HEAD: Atraumatic. Normocephalic. EYES: Pupils equal and round. No scleral icterus. No injection or drainage. ENT: No nasal bleeding or discharge. Mucous membranes pink and moist. NECK: Trachea midline. No JVD. CARDIOVASCULAR: Regular rate and rhythm. No murmur appreciated. RESPIRATORY: No accessory muscle use. Clear to auscultation. Breath sounds equal bilaterally. GASTROINTESTINAL: Abdomen soft,) quadrant tenderness without guarding or rebound , nondistended. Hepatic and splenic margins not palpable. MUSCULOSKELETAL: No obvious deformities. No clubbing. No cyanosis. No edema. NEUROLOGICAL: Awake and alert. No obvious cranial nerve deficits. Motor grossly within normal limits. Normal speech. PSYCHIATRIC: Appropriate mood and affect; insight and judgment normal. Data Data Last Documented VS Vital Signs Date Time Temp Pulse Resp B/P Pulse Ox O2 Delivery O2 Flow Rate FiO2 05/22/17 11:26 95 05/22/17 09:55 99.1 94 20 124/79 Room Air Orders Complete Blood Count With Diff (05/22/17 10:10) Comprehensive Metabolic Panel (05/22/17 10:10) Lipase (05/22/17 10:10) Urinalysis - C+S If Indicated (05/22/17 10:10) Iv Access Insert/Monitor (05/22/17 10:10) Ecg Monitoring (05/22/17 10:10) Oximetry (05/22/17 10:10) Sodium Chloride 0.9% Flush (Ns Flush) (05/22/17 10:15) Hydromorphone Pf Inj (Dilaudid Pf Inj) (05/22/17 10:30) Ondansetron Inj (Zofran Inj) (05/22/17 10:30) Ct Abd/Pel W Iv Contrast(Rout) (05/22/17 10:22) Hydromorphone Pf Inj (Dilaudid Pf Inj) (05/22/17 12:15) Iohexol 350 Inj (Omnipaque 350 Inj) (05/22/17 12:54) Admit Order (Ed Use Only) (05/22/17 13:36) Admit To Inpatient (05/22/17 ) Code Status (05/22/17 13:37) Vital Signs (Adult) Q4H (05/22/17 13:37) Activity Oob Ad Eve (05/22/17 13:37) Production Mechanic Tin Cans / Telemetry .CONTINUOUS (05/22/17 13:37) Intake + Output KOBY.QSHIFT (05/22/17 13:37) Notify Dr: Other (05/22/17 13:37) Diet Npo (05/22/17 Lunch) Sodium Chlor 0.9% 1000 Ml Inj (Ns 1000 M (05/22/17 13:37) Sodium Chloride 0.9% Flush (Ns Flush) (05/22/17 13:45) Sodium Chloride 0.9% Flush (Ns Flush) (05/22/17 21:00) Acetaminophen (Tylenol) (05/22/17 13:45) Ondansetron Inj (Zofran Inj) (05/22/17 13:45) Comprehensive Metabolic Panel (05/23/17 06:00) Complete Blood Count With Diff (05/23/17 06:00) Case Management Consult (05/22/17 13:37) Scd Bilateral/Knee High KOBY.BID (05/22/17 13:37) Naloxone Inj (Narcan Inj) (05/22/17 13:45) Docusate Sodium-Senna ([place]-Colace) (05/22/17 21:00) Magnesium Hydroxide Liq (Milk Of Magnesi (05/22/17 13:45) Sennosides (Senokot) (05/22/17 13:45) Bisacodyl Supp (Dulcolax Supp) (05/22/17 13:45) Lactulose Liq (Lactulose Liq) (05/22/17 13:45) Inpatient Certification (05/22/17 ) Labs Laboratory Tests Test 05/22/17 05/22/17 10:50 11:03 White Blood Count 13.7 TH/MM3 Red Blood Count 4.68 MIL/MM3 Hemoglobin 10.5 GM/DL Hematocrit 32.2 % Mean Corpuscular Volume 68.7 FL Mean Corpuscular Hemoglobin 22.5 PG Mean Corpuscular Hemoglobin 32.7 % Concent Red Cell Distribution Width 18.8 % Platelet Count 310 TH/MM3 Mean Platelet Volume 8.1 FL Neutrophils (%) (Auto) 83.6 % Lymphocytes (%) (Auto) 8.8 % Monocytes (%) (Auto) 6.9 % Eosinophils (%) (Auto) 0.4 % Basophils (%) (Auto) 0.3 % Neutrophils # (Auto) 11.5 TH/MM3 Lymphocytes # (Auto) 1.2 TH/MM3 Monocytes # (Auto) 1.0 TH/MM3 Eosinophils # (Auto) 0.1 TH/MM3 Basophils # (Auto) 0.0 TH/MM3 CBC Comment DIFF FINAL Differential Comment Sodium Level 138 MEQ/L Potassium Level 3.8 MEQ/L Chloride Level 106 MEQ/L Carbon Dioxide Level 22.0 MEQ/L Anion Gap 10 MEQ/L Blood Urea Nitrogen 22 MG/DL Creatinine 1.23 MG/DL Estimat Glomerular Filtration 61 ML/MIN Rate Random Glucose 149 MG/DL Calcium Level 8.4 MG/DL Total Bilirubin 0.4 MG/DL Aspartate Amino Transf 20 U/L (AST/SGOT) Alanine Aminotransferase 49 U/L (ALT/SGPT) Alkaline Phosphatase 152 U/L Total Protein 7.1 GM/DL Albumin 2.8 GM/DL Lipase 126 U/L Urine Color YELLOW Urine Turbidity CLEAR Urine pH 5.5 Urine Specific [place] 1.032 Urine Protein 30 mg/dL Urine Glucose (UA) TRACE mg/dL Urine Ketones NEG mg/dL Urine Occult Blood NEG Urine Nitrite NEG Urine Bilirubin NEG Urine Urobilinogen 2.0 MG/DL Urine Leukocyte Esterase NEG Urine WBC 1 /hpf Urine Hyaline Casts 8 /lpf Urine Mucus MANY /lpf Microscopic Urinalysis Comment CULT NOT INDICATED MDM Medical Decision Making Medical Screen Exam Complete: Yes Emergency Medical Condition: Yes Medical Record Reviewed: Yes Interpretation(s) Laboratory Tests Test 05/22/17 05/22/17 10:50 11:03 White Blood Count 13.7 TH/MM3 (4.0-11.0) Hemoglobin 10.5 GM/DL (13.0-17.0) Hematocrit 32.2 % (39.0-51.0) Mean Corpuscular Volume 68.7 FL (80.0-100.0) Mean Corpuscular Hemoglobin 22.5 PG (27.0-34.0) Red Cell Distribution Width 18.8 % (11.6-17.2) Neutrophils (%) (Auto) 83.6 % (16.0-70.0) Lymphocytes (%) (Auto) 8.8 % (9.0-44.0) Neutrophils # (Auto) 11.5 TH/MM3 (1.8-7.7) Monocytes # (Auto) 1.0 TH/MM3 (0-0.9) Blood Urea Nitrogen 22 MG/DL (7-18) Estimat Glomerular Filtration 61 ML/MIN (>89) Rate Random Glucose 149 MG/DL (74-106) Calcium Level 8.4 MG/DL (8.5-10.1) Alkaline Phosphatase 152 U/L (45-117) Albumin 2.8 GM/DL (3.4-5.0) Urine Protein 30 mg/dL (NEG-TRACE) Urine Mucus MANY /lpf (OCC) Last 24 hours Impressions Abdomen/Pelvis CT 05/22/17 1022 Signed Impressions: Service Date/Time: Monday, May 22, 2017 12:28 - CONCLUSION: 1. Bowel wall thickening descending colon and induration consistent with an inflammatory process.. Underlying neoplasm excluded. 2. Evidence for previous abdominal wall surgery 3. Hiatal hernia. 4. Findings have been discussed with the referring physician. Jose Garcia MD FACR Differential Diagnosis Right upper quadrant abdominal pain with nauseagastroenteritis versus diverticulitis versus cholecystitis Narrative Course CAT scan shows intense inflammation around the colon concerning for underlying diverticulitis or possible neoplasm with micro-abscesses. He also has significant splenomegaly according to Dr. Garcia. Case was discussed with states that the patient has had this issue in the past and has been resistant for surgical treatment. He has suggested that we admit the patient to medicine. Case was discussed with Dr. Shah for admission. Diagnosis Primary Impression: Abdominal wall abscess Additional Impression: Colonic diverticular abscess Admitting Information Admitting Physician Requests: Admit Stacey Rush MD May 22, 2017 10:24
[2017-05-22] MEDS ORDERED: HYDROmorphone HCL PF 1 MG/ML VIAL IV PUSH ONE ×2 (10:30→12:15)
[2017-05-22] MEDS ORDERED: ONDANSETRON HCL 4 MG/2 ML VIAL IV PUSH ONE (10:30)
[2017-05-22 11:26] VITALS: O2SAT 95
[2017-05-22 11:29] LABS: AUTOMATED NEUTROPHIL # 11.5 TH/MM3 (1.8-7.7); BASOPHIL % 0.3 % (0.0-2.0); EOSINOPHIL # 0.1 TH/MM3 (0-0.4); EOSINOPHIL % 0.4 % (0.0-4.0); HEMATOCRIT 32.2 % (39.0-51.0); HEMO FLAGS DIFF FINAL; LYMPH % 8.8 % (9.0-44.0); LYMPHOCYTE # 1.2 TH/MM3 (1.0-4.8); MEAN CELL VOLUME 68.7 FL (80.0-100.0); MEAN CORPUSCULAR HEMOGLOBIN 22.5 PG (27.0-34.0); MEAN CORPUSCULAR HGB CONC 32.7 % (32.0-36.0); MONO % 6.9 % (0.0-8.0); NEUT % 83.6 % (16.0-70.0); PLATELET COUNT 310 TH/MM3 (150-450); RED BLOOD COUNT 4.68 MIL/MM3 (4.50-5.90); RED CELL DISTRIBUTION WIDTH 18.8 % (11.6-17.2); WHITE BLOOD COUNT 13.7 TH/MM3 (4.0-11.0)
[2017-05-22 11:46] LABS: ALT (GPT) 49 U/L (12-78); ANION GAP 10 MEQ/L (5-15); AST (GOT) 20 U/L (15-37); CHLORIDE 106 MEQ/L (98-107); GLOMERULAR FILTRATION RATE 61 ML/MIN (>89); POTASSIUM 3.8 MEQ/L (3.5-5.1); SODIUM (NA) 138 MEQ/L (136-145)
[2017-05-22 11:48] LABS: ALKALINE PHOSPHATASE 152 U/L (45-117); BLOOD UREA NITROGEN 22 MG/DL (7-18); TOTAL BILIRUBIN ADULT 0.4 MG/DL (0.2-1.0)
[2017-05-22 11:51] LABS: BLOOD, URINE NEG (NEG); COMMENT (UR) CULT NOT INDICATED; CULTURE IF INDICATED CULT NOT INDICATED; GLUCOSE,URINE TRACE mg/dL (NEG); HYALINE CAST, URINE 8 /lpf (RARE); KETONE, URINE NEG (NEG); MUCUS URINE MANY /lpf (OCC); NITRITE,URINE NEG (NEG); PH, URINE 5.5 (5.0-8.5); URINE COLOR YELLOW (YELLW/STRAW)
[2017-05-22] MEDS ORDERED: IOHEXOL 350 MG/ML 10 ML VIAL (for RAD DIAG) IV ONE (12:54)
--- NOTE | 2017-05-22 13:09 | RADRPT ---
EXAM DATE/TIME: 05/22/2017 12:28 [place] COMPARISON: CT ABDOMEN W/O CONTRAST, December 26, 2016, 12:33. CT ABDOMEN & PELVIS W CONTRAST, December 20, 2016 , 6:42. INDICATIONS : History of diverticulitis now having the same pain. IV CONTRAST: 74 cc Omnipaque 350 (iohexol) IV ORAL CONTRAST: No oral contrast ingested. RADIATION DOSE: 19.97 CTDIvol (mGy) MEDICAL HISTORY : Hypertension. Diverticulitis. Chronic obstructive pulmonary disease.Ulcer SURGICAL HISTORY : Hiatal hernia repair ENCOUNTER: Initial ACUITY: 1 day PAIN SCALE: 7/10 LOCATION: Right Abdomen TECHNIQUE: Volumetric scanning of the abdomen and pelvis was performed. Using automated exposure control and ad justment of the mA and/or kV according to patient size, radiation dose was kept as low as reasonably achievable to obtain optimal diagnostic quality images. DICOM format image data is available electro nically for review and comparison. FINDINGS: The lung base is are clear. There is situs with the liver on the left. The liver is free of focal defects. There is enlarged mil d hernia. The pancreas, adrenals and kidneys are unremarkable. There is marked induration and bowel wall thickening in the descending colon. There is induration in the abdominal wall with a small abscess present as well. The right and left kidneys are unremarkable Mesh from previous hernia surgery is noted The pelvic contents are unremarkable Direct visualization is suggested to exclude an underlying neoplasm CONCLUSION: 1. Bowel wall thickening descending colon and induration consistent with an inflammatory process.. U nderlying neoplasm excluded. 2. Evidence for previous abdominal wall surgery 3. Hiatal hernia. 4. Findings have been discussed with the referring physician. Jose Garcia MD FACR on May 22, 2017 at 12:57 Board Certified Radiologist. This report was verified electronically.
[2017-05-22] MEDS ORDERED: NALOXONE HCL 0.4 MG/ML AMP IV PRN (13:45)
[2017-05-22] MEDS ORDERED: MAGNESIUM HYDROXIDE SUSP 30 ML CUP PO PRN (13:45)
[2017-05-22] MEDS ORDERED: SENNOSIDES 8.6 MG TAB PO PRN (13:45)
[2017-05-22] MEDS ORDERED: ONDANSETRON HCL 4 MG/2 ML VIAL IVP PRN (13:45)
[2017-05-22] MEDS ORDERED: LACTULOSE SYRUP 20 GM/30 ML CUP PO PRN (13:45)
[2017-05-22] MEDS ORDERED: ACETAMINOPHEN 325 MG TAB PO PRN (13:45)
[2017-05-22] MEDS ORDERED: BISACODYL 10 MG SUPP RECTAL PRN (13:45)
--- NOTE | 2017-05-22 14:27 | PD.CONS ---
HPI History of Present Illness This is a 57 year old male with hx diverticulitis with abscess, perforated gastric ulcer s/p laparoscopic repair, HTN who presented to the ER with abdominal pain where he has had diverticulitis pain before. Pain started 3-4 days ago, right side, sharp and constant, no aggravating or relieving factors. He has nausea, no vomiting. Denies diarrhea, blood in stool, dark tarry stool, weight loss. He was here 4-5 m ago for same. He has been hospitalized for 3-4 times for diverticulitis. He had been using diet modifications to avoid diverticulitis b/c he doesn't want surgery, says he was told colostomy could not be reversed. He had colonoscopy 6 years ago by a female Dr matching the description of Dr Funez, office in , reports no abnormal findings. Cannot recall if he has had EGD. (Vilma Shi) PFSH Past Medical History TIA DM COPD ASTHMA OA Past Surgical History umbilica hernia repair x 3 (Vilma Shi) Coded Allergies: No Known Allergies (Verified , 05/22/17) Family History lung ca CT DMI breast ca Social History drinks ETOH 1 x month, distant hx heavy drinker smokes 4-5 cig daily no illicit drugs (Vilma Shi) Review of Systems Constitutional: COMPLAINS OF: Fever Eyes: DENIES: Blurred vision Ears, nose, mouth, throat: DENIES: Hearing loss Respiratory: COMPLAINS OF: Cough Cardiovascular: DENIES: Chest pain Gastrointestinal: COMPLAINS OF: Abdominal pain, Nausea, Swelling of Abdomen, DENIES: Black stools, Bloody stools, Constipation, Diarrhea, Vomiting, Hematemesis Genitourinary: DENIES: Hematuria Musculoskeletal: DENIES: Joint Swelling Integumentary: DENIES: Jaundice Neurologic: DENIES: Abnormal gait Psychiatric: DENIES: Confusion (Vilma Shi) GI Exam Vitals I&O Vital Signs Date Time Temp Pulse Resp B/P Pulse Ox O2 Delivery O2 Flow Rate FiO2 05/22/17 11:26 95 05/22/17 09:55 99.1 94 20 124/79 97 Room Air Imaging Last 24 hours Impressions Abdomen/Pelvis CT 05/22/17 1022 Signed Impressions: Service Date/Time: Monday, May 22, 2017 12:28 - CONCLUSION: 1. Bowel wall thickening descending colon and induration consistent with an inflammatory process.. Underlying neoplasm excluded. 2. Evidence for previous abdominal wall surgery 3. Hiatal hernia. 4. Findings have been discussed with the referring physician. Jose Garcia MD FACR Last 24 hours Impressions Abdomen/Pelvis CT 05/22/17 1022 Signed Impressions: Service Date/Time: Monday, May 22, 2017 12:28 - CONCLUSION: 1. Bowel wall thickening descending colon and induration consistent with an inflammatory process.. Underlying neoplasm excluded. 2. Evidence for previous abdominal wall surgery 3. Hiatal hernia. 4. Findings have been discussed with the referring physician. Jose Garcia MD FACR Laboratory Test 05/22/17 05/22/17 10:50 11:03 White Blood Count 13.7 TH/MM3 Red Blood Count 4.68 MIL/MM3 Hemoglobin 10.5 GM/DL Hematocrit 32.2 % Mean Corpuscular Volume 68.7 FL Mean Corpuscular Hemoglobin 22.5 PG Mean Corpuscular Hemoglobin 32.7 % Concent Red Cell Distribution Width 18.8 % Platelet Count 310 TH/MM3 Mean Platelet Volume 8.1 FL Neutrophils (%) (Auto) 83.6 % Lymphocytes (%) (Auto) 8.8 % Monocytes (%) (Auto) 6.9 % Eosinophils (%) (Auto) 0.4 % Basophils (%) (Auto) 0.3 % Neutrophils # (Auto) 11.5 TH/MM3 Lymphocytes # (Auto) 1.2 TH/MM3 Monocytes # (Auto) 1.0 TH/MM3 Eosinophils # (Auto) 0.1 TH/MM3 Basophils # (Auto) 0.0 TH/MM3 CBC Comment DIFF FINAL Differential Comment Sodium Level 138 MEQ/L Potassium Level 3.8 MEQ/L Chloride Level 106 MEQ/L Carbon Dioxide Level 22.0 MEQ/L Anion Gap 10 MEQ/L Blood Urea Nitrogen 22 MG/DL Creatinine 1.23 MG/DL Estimat Glomerular Filtration 61 ML/MIN Rate Random Glucose 149 MG/DL Calcium Level 8.4 MG/DL Total Bilirubin 0.4 MG/DL Aspartate Amino Transf 20 U/L (AST/SGOT) Alanine Aminotransferase 49 U/L (ALT/SGPT) Alkaline Phosphatase 152 U/L Total Protein 7.1 GM/DL Albumin 2.8 GM/DL Lipase 126 U/L Urine Color YELLOW Urine Turbidity CLEAR Urine pH 5.5 Urine Specific [place] 1.032 Urine Protein 30 mg/dL Urine Glucose (UA) TRACE mg/dL Urine Ketones NEG mg/dL Urine Occult Blood NEG Urine Nitrite NEG Urine Bilirubin NEG Urine Urobilinogen 2.0 MG/DL Urine Leukocyte Esterase NEG Urine WBC 1 /hpf Urine Hyaline Casts 8 /lpf Urine Mucus MANY /lpf Microscopic Urinalysis Comment CULT NOT INDICATED Physical Examination HEENT: PERRL; normocephalic; atraumatic; no jaundice. CHEST: CTA CARDIAC: RRR ABDOMEN: visible firm bulge right abd,right mid abd TTP over bulge; bowel sounds are faint EXTREMITIES: No clubbing, cyanosis, or edema. SKIN: Normal; no rash; no jaundice. RN OCCUPATIONAL HEALTH: No focal deficits; alert and oriented times three. (Vilma Shi) Assessment and Plan Plan ASSESSMENT - abdominal pain - right side, onset 3-4d ago, similar to pain with prev episodes diverticulitis. hx diverticulitis with abscess. CT 05-22-17-> bowel wall thickenign descending colon and induration c/w inflammatory process, underlying neoplasm excluded, evidence prev abd wall surgery, hiatal hernia, small abscess present. GS consulted. - isolated elevated ALP - 152. - leukocytosis - WBC 13.7. flagyl, cipor PLAN - tumor markers - abx - colonoscopy 4-6 weeks - bowel rest - await surgical consult - supportive care - further recommendations to follow This pt seen by myself and DR Coelho and this note is written on his behalf ( Vilma Shi) Physician Comments Patient seen and examined Agree with above Continue with current supportive care Monitor labs (Francisco Coelho MD) Vilma Shi May 22, 2017 14:27 Francisco Coelho MD May 23, 2017 22:24
--- NOTE | 2017-05-22 14:38 | HHI.HP ---
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 Patient locates the pain to the right upper quadrant and right lateral abdomen without radiation, described as constant 8/ 10 pains that have been worsening over the past few days. He states the pain has become so bad that he cannot sleep or get comfortable. He reports swelling at the right lateral abdomen, same site as his previous abdominal wall abscess. He reports nausea but no vomiting. He does report subjective fevers but did not take his temperature at home. His bowel movements have been normal, last BM yesterday 05/21. He states he still has been able to eat and denies any decreased appetite. He tried taking a few extra aspirin to relieve the pain without any relief. The patient is requesting to see Dr. Lim as surgery was previously discussed and the patient has not been able to follow-up with him due to insurance reasons. The patient now has patient assistance again and is motivated to continue follow up. His last colonoscopy was at age 51, reportedly unremarkable. The patient denies any other medical complaints at this time including no headache, lightheadedness, dizziness, chest pain, palpitations, shortness of breath, or urinary complaints. Review of Systems Except as stated in HPI: all other systems reviewed are Neg Past Family Social History Past Medical History situs inversus diverticulitis right abdominal wall abscess s/p drain placement/removal HTN HLD hiatal hernia GERD Past Surgical History multiple abdominal hernia repairs with mesh x3 right abdominal wall drain placement/removal Reported Medications Lovastatin 40 Mg Tab 40 Mg PO DAILY Metformin (Metformin HCl) 500 Mg Tab 500 Mg PO BIDPC With meals Lisinopril 20 Mg Tab 20 Mg PO BID Glipizide 5 Mg Tab 5 Mg PO DAILY Take 30 minutes before a meal Proventil Hfa 6.7 GM Inh (Albuterol Sulfate) 90 Mcg/Act Aer 1 Puff INH Q4H PRN Aspirin 325 Mg Tab 325 Mg PO DAILY Allergies: Coded Allergies: No Known Allergies (Verified , 05/22/17) Active Ordered Medications Current Medications Medications (Trade) Dose Ordered Sig/[place] Route Start Time Stop Time Status Last Admin Sodium Chloride 2 ml 2 ml UNSCH PRN IV FLUSH 05/22/17 10:15 05/22/17 12:52 (NS 1000 ml Inj) 1,000 ml @ 100 mls/hr Q10H IV 05/22/17 14:00 (NS Flush) 2 ml UNSCH PRN IV FLUSH 05/22/17 13:45 (NS Flush) 2 ml BID IV FLUSH 05/22/17 21:00 (Tylenol) 650 mg Q4H PRN PO 05/22/17 13:45 UNV (Zofran Inj) 4 mg Q6H PRN IVP 05/22/17 13:45 UNV (Narcan Inj) 0.4 mg UNSCH PRN IV 05/22/17 13:45 UNV (Raven-Colace) 1 tab BID PO 05/22/17 21:00 UNV (Milk Of Magnesia Liq) 30 ml Q12H PRN PO 05/22/17 13:45 UNV (Senokot) 17.2 mg Q12H PRN PO 05/22/17 13:45 UNV (Dulcolax Supp) 10 mg DAILY PRN RECTAL 05/22/17 13:45 UNV (Lactulose Liq) 30 ml DAILY PRN PO 05/22/17 13:45 UNV Hydromorphone HCl 0.5 mg 0.5 mg Q4H PRN IV PUSH 05/22/17 13:45 UNV Ciprofloxacin/ Dextrose 200 ml @ 200 mls/hr Q12H IV 05/22/17 13:45 UNV (Flagyl 500 Mg Inj) 100 ml @ 100 mls/hr Q8H IV 05/22/17 13:45 UNV Family History Mother with lung cancer, age 59 Father with VA, heart disease, age 32 Sister with breast cancer s/p b/l mastectomy Sister with diabetes s/p amputations Nephew with colon cancer Social History Smokes tobacco, down to 3-4 cigarettes daily Very rare alcohol use, cut back to once a month Denies any illicit drug use Physical Exam Vital Signs Vital Signs Date Time Temp Pulse Resp B/P Pulse Ox O2 Delivery O2 Flow Rate FiO2 05/22/17 11:26 95 05/22/17 09:55 99.1 94 20 124/79 97 Room Air Physical Exam GENERAL: Well-nourished, well-developed middle aged male patient in [facility]. SKIN: Warm and dry. No rash. HEAD: Normocephalic. Atraumatic. EYES: Pupils equal and round. No scleral icterus. No injection or drainage. ENT: No nasal bleeding or discharge. Mucous membranes pink and moist. NECK: Supple. Trachea midline. CARDIOVASCULAR: Regular rate and rhythm. S1, S2 noted. No murmur appreciated. RESPIRATORY: No accessory muscle use. Clear to auscultation. Breath sounds equal bilaterally. GASTROINTESTINAL: Abdomen soft, RUQ/right lateral abdomen TTP with some abdominal wall edema, nondistended. Normoactive bowel sounds x4. Prior surgical scarring. MUSCULOSKELETAL: No obvious deformities. Extremities without clubbing, cyanosis , or edema. NEUROLOGICAL: Awake and alert. No obvious cranial nerve deficits. Motor grossly within normal limits. Normal speech. PSYCHIATRIC: Appropriate mood and affect; insight and judgment normal. Laboratory Laboratory Tests Test 05/22/17 05/22/17 10:50 11:03 White Blood Count 13.7 Red Blood Count 4.68 Hemoglobin 10.5 Hematocrit 32.2 Mean Corpuscular Volume 68.7 Mean Corpuscular Hemoglobin 22.5 Mean Corpuscular Hemoglobin 32.7 Concent Red Cell Distribution Width 18.8 Platelet Count 310 Mean Platelet Volume 8.1 Neutrophils (%) (Auto) 83.6 Lymphocytes (%) (Auto) 8.8 Monocytes (%) (Auto) 6.9 Eosinophils (%) (Auto) 0.4 Basophils (%) (Auto) 0.3 Neutrophils # (Auto) 11.5 Lymphocytes # (Auto) 1.2 Monocytes # (Auto) 1.0 Eosinophils # (Auto) 0.1 Basophils # (Auto) 0.0 CBC Comment DIFF FINAL Differential Comment Sodium Level 138 Potassium Level 3.8 Chloride Level 106 Carbon Dioxide Level 22.0 Anion Gap 10 Blood Urea Nitrogen 22 Creatinine 1.23 Estimat Glomerular Filtration 61 Rate Random Glucose 149 Calcium Level 8.4 Total Bilirubin 0.4 Aspartate Amino Transf 20 (AST/SGOT) Alanine Aminotransferase 49 (ALT/SGPT) Alkaline Phosphatase 152 Total Protein 7.1 Albumin 2.8 Lipase 126 Urine Color YELLOW Urine Turbidity CLEAR Urine pH 5.5 Urine Specific [place] 1.032 Urine Protein 30 Urine Glucose (UA) TRACE Urine Ketones NEG Urine Occult Blood NEG Urine Nitrite NEG Urine Bilirubin NEG Urine Urobilinogen 2.0 Urine Leukocyte Esterase NEG Urine WBC 1 Urine Hyaline Casts 8 Urine Mucus MANY Microscopic Urinalysis Comment CULT NOT INDICATED Result Diagram: 05/22/17 1050 05/22/17 1050 Imaging Last Impressions Abdomen/Pelvis CT 05/22/17 1022 Signed Impressions: Service Date/Time: Monday, May 22, 2017 12:28 - CONCLUSION: 1. Bowel wall thickening descending colon and induration consistent with an inflammatory process.. Underlying neoplasm excluded. 2. Evidence for previous abdominal wall surgery 3. Hiatal hernia. 4. Findings have been discussed with the referring physician. 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 Acute Diverticulitis with Sepsis: meets sepsis criteria with +leukocytosis WBC 13.7K and tachycardia HR 94, with source diverticulitis vs abscess. Temp 99.1, however patient reports subjective fevers at home. CT abd/pelvis images reviewed , shows marked induration and bowel wall thickening in the descending colon; induration in abdominal wall with small abscess present; direct visualization suggested to exclude underlying neoplasm. -check lactic acid and blood cultures -Continue antibiotics with IV Cipro/Flagyl -start Protonix IV -keep NPO for now -supportive treatment with IVF, antiemetics, pain control prn -Consult gastroenterology Abdominal Wall Abscess: seen on CT as above. Patient has been evaluated by Dr. Ross in the past, discussed surgical intervention however patient declined at that time; now he's requesting to speak with Dr. Ross again. -will consult surgeon Dr. Pierre -pain control with IV dilaudid prn Hypertension/Hyperlipidemia: chronic, stable -continue patient's lisinopril and statin Diabetes Mellitus: last HgbA1c 6.7 on 03/17/17, much improved from previous HgbA1c 10.1 on 05/26/15 -hold patient's metformin and glipizide while NPO -monitor accu-checks, cover with low dose SSI Tobacco Use: smokes 3-4 cigarettes daily -counseled on cessation -nicotine patch prn Asthma, Possible COPD with +tobacco use: chronic, not in exacerbation -continue patient's albuterol inhaler prn -incentive spirometry -encourage ambulation -mucinex bid prn DVT Prophylaxis: teds/SCDs, hold chemical prophylaxis incase possible surgical intervention The exam, history, and the medical decision-making described in the above note were completed with the assistance of the mid-level provider. I reviewed and agree with the findings presented. I attest that I had a [id number] encounter with the patient on the same day, and personally performed and documented my assessment and findings in the medical record. patient was examined in ER. Code Status Full Code Discussed Condition With Patient, WEATHER TEACHER, Dr. Shah Physician Certification 2 Midnight Certification Type: Admission for Inpatient Services Order for Inpatient Services The services are ordered in accordance with Medicare regulations or non- Medicare payer requirements, as applicable. In the case of services not specified as inpatient-only, they are appropriately provided as inpatient services in accordance with the 2-midnight benchmark. Estimated LOS (days): 3 days is the estimated time the patient will need to remain in the hospital, assuming treatment plan goals are met and no additional complications. Post-Hospital Plan: Home Sera Gomez PA-C May 22, 2017 14:37 Theodore Dietrich MD May 22, 2017 15:45
[2017-05-22] MEDS ORDERED: ALBUTEROL SULFATE 90 MCG/ACT HFA 18 GM INHALER INH PRN (15:00)
[2017-05-22] MEDS ORDERED: NICOTINE 7 MG/24 HR PATCH T-DERMAL PRN (15:00)
[2017-05-22] MEDS: PANTOPRAZOLE SODIUM 40 MG VIAL IV PUSH SCH (15:04)
[2017-05-22] MEDS: HYDROmorphone HCL PF 1 MG/ML VIAL IV PUSH PRN ×3 (15:05→21:47)
[2017-05-22] MEDS: CIPROFLOXACIN 400 MG PREMIX 200 ML IV SCH (15:05)
[2017-05-22] MEDS: SODIUM CHLOR 0.9% 1000 ML INJ 1,000 ML IV SCH ×2 (15:05→23:48)
[2017-05-22] MEDS ORDERED: guaiFENesin E.R. 600 MG TAB PO PRN (15:15)
[2017-05-22] MEDS: metroNIDAZOLE 500 MG INJ 100 ML IV SCH ×2 (16:00→23:48)
--- NOTE | 2017-05-22 18:08 | PD.CAR.PN ---
CVT Progress Note Subjective/Hospital Course: Patient known to me from previous admissions and encounters. 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 Patient has recurrent diverticulitis with 3 episodes at which time patient had contained perforation into the anterior/lateral abdominal wall Each time patient was treated in the hospital with IV antibiotics and then discharged home on by mouth antibiotics. There was a high suspicion for a neoplasm at previous admissions from the get-go , but patient always fails to follow up and is very non-compliant with care. He didn't follow up with me or with GI for endoscopy. Each time patient was told to come back in follow-up to have colonoscopy followed by sigmoid resection and each time patient fell out of the follow-up. Patient states that he doesn't want surgical resection because he would end up with a colostomy. Of course if he did colostomy, it is reversible. At this point I believe the best way to deal with this is to keep patient Hospital treated with antibiotics have a colonoscopy while in the hospital and then proceed with sigmoid resection and primary anastomosis I am highly suspicious of a neoplasm and therefore, I will try to convince the patient that the surgery is the best option. At this point, patient should remain in the hospital on intravenous antibiotics for about 10 days and then have a colonoscopy and while he is still clean and prepped I will go ahead and resect the sigmoid. Will follow Beverley Ross Objective: Vital Signs Date Time Temp Pulse Resp B/P Pulse Ox O2 Delivery O2 Flow Rate FiO2 05/22/17 11:26 95 05/22/17 09:55 99.1 94 20 124/79 97 Room Air Labs: Laboratory Tests Test 05/22/17 05/22/17 10:50 11:03 White Blood Count 13.7 TH/MM3 (4.0-11.0) Red Blood Count 4.68 MIL/MM3 (4.50-5.90) Hemoglobin 10.5 GM/DL (13.0-17.0) Hematocrit 32.2 % (39.0-51.0) Mean Corpuscular Volume 68.7 FL (80.0-100.0) Mean Corpuscular Hemoglobin 22.5 PG (27.0-34.0) Mean Corpuscular Hemoglobin 32.7 % Concent (32.0-36.0) Red Cell Distribution Width 18.8 % (11.6-17.2) Platelet Count 310 TH/MM3 (150-450) Mean Platelet Volume 8.1 FL (7.0-11.0) Neutrophils (%) (Auto) 83.6 % (16.0-70.0) Lymphocytes (%) (Auto) 8.8 % (9.0-44.0) Monocytes (%) (Auto) 6.9 % (0.0-8.0) Eosinophils (%) (Auto) 0.4 % (0.0-4.0) Basophils (%) (Auto) 0.3 % (0.0-2.0) Neutrophils # (Auto) 11.5 TH/MM3 (1.8-7.7) Lymphocytes # (Auto) 1.2 TH/MM3 (1.0-4.8) Monocytes # (Auto) 1.0 TH/MM3 (0-0.9) Eosinophils # (Auto) 0.1 TH/MM3 (0-0.4) Basophils # (Auto) 0.0 TH/MM3 (0-0.2) CBC Comment DIFF FINAL Differential Comment Sodium Level 138 MEQ/L (136-145) Potassium Level 3.8 MEQ/L (3.5-5.1) Chloride Level 106 MEQ/L (98-107) Carbon Dioxide Level 22.0 MEQ/L (21.0-32.0) Anion Gap 10 MEQ/L (5-15) Blood Urea Nitrogen 22 MG/DL (7-18) Creatinine 1.23 MG/DL (0.60-1.30) Estimat Glomerular Filtration 61 ML/MIN (>89) Rate Random Glucose 149 MG/DL (74-106) Calcium Level 8.4 MG/DL (8.5-10.1) Total Bilirubin 0.4 MG/DL (0.2-1.0) Aspartate Amino Transf 20 U/L (15-37) (AST/SGOT) Alanine Aminotransferase 49 U/L (12-78) (ALT/SGPT) Alkaline Phosphatase 152 U/L (45-117) Total Protein 7.1 GM/DL (6.4-8.2) Albumin 2.8 GM/DL (3.4-5.0) Lipase 126 U/L (73-393) Urine Color YELLOW (YELLW/STRAW) Urine Turbidity CLEAR (CLEAR) Urine pH 5.5 (5.0-8.5) Urine Specific [place] 1.032 (1.002-1.035) Urine Protein 30 mg/dL (NEG-TRACE) Urine Glucose (UA) TRACE mg/dL (NEG) Urine Ketones NEG mg/dL (NEG) Urine Occult Blood NEG (NEG) Urine Nitrite NEG (NEG) Urine Bilirubin NEG (NEG) Urine Urobilinogen 2.0 MG/DL (LESS THAN 2.0) Urine Leukocyte Esterase NEG (NEG) Urine WBC 1 /hpf (0-5) Urine Hyaline Casts 8 /lpf (RARE) Urine Mucus MANY /lpf (OCC) Microscopic Urinalysis Comment CULT NOT INDICATED Result Diagram: 05/22/17 1050 05/22/17 1050 Maximino Pierre MD May 22, 2017 18:08
[2017-05-22 19:09] VITALS: BP 110/74; PULSE 87; RESP 18; TEMP 98; O2SAT 96
[2017-05-22] MEDS: SODIUM CHLORIDE 0.9% FLUSH 10 ML FLUSH IV FLUSH SCH (19:56)
[2017-05-22] MEDS: LISINOPRIL 20 MG TAB PO SCH (23:47)
[2017-05-22] MEDS: DOCUSATE SODIUM 50 MG/SENNA 8.6 MG TAB PO SCH (23:47)
[2017-05-23] VITALS (7 sets, daily range): BP systolic 108–124; BP diastolic 63–73; PULSE 82–99; RESP 18–22; TEMP 98–100.4; O2SAT 93–95
[2017-05-23] MEDS: HYDROmorphone HCL PF 1 MG/ML VIAL IV PUSH PRN ×7 (00:47→21:08)
[2017-05-23] MEDS: CIPROFLOXACIN 400 MG PREMIX 200 ML IV SCH ×2 (02:50→15:32)
[2017-05-23] MEDS: SODIUM CHLORIDE 0.9% FLUSH 10 ML FLUSH IV FLUSH PRN ×3 (07:35→17:28)
[2017-05-23 07:37] LABS: AUTOMATED NEUTROPHIL # 9.3 TH/MM3 (1.8-7.7); BASOPHIL % 0.3 % (0.0-2.0); EOSINOPHIL # 0.1 TH/MM3 (0-0.4); EOSINOPHIL % 0.5 % (0.0-4.0); HEMATOCRIT 29.7 % (39.0-51.0); HEMO FLAGS DIFF FINAL; LYMPH % 11.9 % (9.0-44.0); LYMPHOCYTE # 1.4 TH/MM3 (1.0-4.8); MEAN CELL VOLUME 68.6 FL (80.0-100.0); MEAN CORPUSCULAR HEMOGLOBIN 22.1 PG (27.0-34.0); MEAN CORPUSCULAR HGB CONC 32.2 % (32.0-36.0); MONO % 7.7 % (0.0-8.0); NEUT % 79.6 % (16.0-70.0); PLATELET COUNT 305 TH/MM3 (150-450); RED BLOOD COUNT 4.33 MIL/MM3 (4.50-5.90); RED CELL DISTRIBUTION WIDTH 18.7 % (11.6-17.2); WHITE BLOOD COUNT 11.7 TH/MM3 (4.0-11.0)
[2017-05-23 08:03] LABS: ALT (GPT) 50 U/L (12-78); ANION GAP 9 MEQ/L (5-15); AST (GOT) 27 U/L (15-37); BICARBONATE 23.8 MEQ/L (21.0-32.0); BLOOD UREA NITROGEN 15 MG/DL (7-18); CHLORIDE 102 MEQ/L (98-107); GLOMERULAR FILTRATION RATE 72 ML/MIN (>89); POTASSIUM 3.9 MEQ/L (3.5-5.1); SODIUM (NA) 135 MEQ/L (136-145)
[2017-05-23 08:06] LABS: ALKALINE PHOSPHATASE 167 U/L (45-117); TOTAL BILIRUBIN ADULT 0.7 MG/DL (0.2-1.0)
[2017-05-23] MEDS: metroNIDAZOLE 500 MG INJ 100 ML IV SCH ×2 (08:08→17:29)
[2017-05-23] MEDS: DOCUSATE SODIUM 50 MG/SENNA 8.6 MG TAB PO SCH ×2 (09:47→21:06)
[2017-05-23] MEDS: PRAVASTATIN SOD 40 MG TAB PO SCH (09:47)
[2017-05-23] MEDS: LISINOPRIL 20 MG TAB PO SCH ×2 (09:48→21:06)
--- NOTE | 2017-05-23 09:49 | HHI.PR ---
Subjective Remarks Follow up for diverticulitis, abscess. The patient is very upset this morning, wants a regular diet, threatening to leave AMA. He is also requesting Dr. Pierre to be his attending. He reports continued right sided abdominal pain overnight, no nausea/vomiting/diarrhea. Documented fever Tmax 100.4 this morning. Objective Vitals Vital Signs Date Time Temp Pulse Resp B/P Pulse Ox O2 Delivery O2 Flow Rate FiO2 05/23/17 08:40 98.0 88 22 124/68 94 05/23/17 04:00 86 05/23/17 03:50 100.4 91 20 115/65 93 05/23/17 00:35 99.3 83 20 108/63 95 05/22/17 19:09 98.0 87 18 110/74 96 Room Air 05/22/17 11:26 95 05/22/17 09:55 99.1 94 20 124/79 97 Room Air Result Diagram: 05/23/17 0604 05/23/17 0604 Other Results Laboratory Tests Test 05/22/17 05/22/17 05/22/17 05/23/17 10:50 11:03 19:40 06:04 Lipase 126 U/L Urine Color YELLOW Urine Turbidity CLEAR Urine pH 5.5 Urine Specific [place] 1.032 Urine Protein 30 mg/dL Urine Glucose (UA) TRACE mg/dL Urine Ketones NEG mg/dL Urine Occult Blood NEG Urine Nitrite NEG Urine Bilirubin NEG Urine Urobilinogen 2.0 MG/DL Urine Leukocyte Esterase NEG Urine WBC 1 /hpf Urine Hyaline Casts 8 /lpf Urine Mucus MANY /lpf Microscopic Urinalysis Comment CULT NOT INDICATED Lactic Acid Level 0.7 mmol/L White Blood Count 11.7 TH/MM3 Red Blood Count 4.33 MIL/MM3 Hemoglobin 9.6 GM/DL Hematocrit 29.7 % Mean Corpuscular Volume 68.6 FL Mean Corpuscular Hemoglobin 22.1 PG Mean Corpuscular Hemoglobin 32.2 % Concent Red Cell Distribution Width 18.7 % Platelet Count 305 TH/MM3 Mean Platelet Volume 7.9 FL Neutrophils (%) (Auto) 79.6 % Lymphocytes (%) (Auto) 11.9 % Monocytes (%) (Auto) 7.7 % Eosinophils (%) (Auto) 0.5 % Basophils (%) (Auto) 0.3 % Neutrophils # (Auto) 9.3 TH/MM3 Lymphocytes # (Auto) 1.4 TH/MM3 Monocytes # (Auto) 0.9 TH/MM3 Eosinophils # (Auto) 0.1 TH/MM3 Basophils # (Auto) 0.0 TH/MM3 CBC Comment DIFF FINAL Differential Comment Sodium Level 135 MEQ/L Potassium Level 3.9 MEQ/L Chloride Level 102 MEQ/L Carbon Dioxide Level 23.8 MEQ/L Anion Gap 9 MEQ/L Blood Urea Nitrogen 15 MG/DL Creatinine 1.06 MG/DL Estimat Glomerular Filtration 72 ML/MIN Rate Random Glucose 89 MG/DL Calcium Level 8.3 MG/DL Total Bilirubin 0.7 MG/DL Aspartate Amino Transf 27 U/L (AST/SGOT) Alanine Aminotransferase 50 U/L (ALT/SGPT) Alkaline Phosphatase 167 U/L Total Protein 6.7 GM/DL Albumin 2.5 GM/DL Tumor Marker Alpha Fetoprotein 0.7 NG/ML Carcinoembryonic Antigen 350.3 NG/ML CA 19-9 Antigen 14.9 U/ML Imaging Last Impressions Abdomen/Pelvis CT 05/22/17 1022 Signed Impressions: Service Date/Time: Monday, May 22, 2017 12:28 - CONCLUSION: 1. Bowel wall thickening descending colon and induration consistent with an inflammatory process.. Underlying neoplasm excluded. 2. Evidence for previous abdominal wall surgery 3. Hiatal hernia. 4. Findings have been discussed with the referring physician. Jose Garcia MD FACR Objective Remarks GENERAL: Well-nourished, well-developed middle aged male patient in [facility]. SKIN: Warm and dry. No rash. HEENT: Normocephalic. Atraumatic.Pupils equal and round. Mucous membranes pink and moist. NECK: Supple. Trachea midline. CARDIOVASCULAR: Regular rate and rhythm. S1, S2 noted. No murmur appreciated. RESPIRATORY: No accessory muscle use. Clear to auscultation. Breath sounds equal bilaterally. GASTROINTESTINAL: Abdomen soft, RUQ/right lateral abdomen TTP with some abdominal wall edema, nondistended. Normoactive bowel sounds x4. Prior surgical scarring. MUSCULOSKELETAL: No obvious deformities. Extremities without clubbing, cyanosis , or edema. NEUROLOGICAL: Awake and alert. No obvious cranial nerve deficits. Motor grossly within normal limits. Normal speech. PSYCHIATRIC: Appropriate mood and affect; insight and judgment normal. Procedures None Medications and IVs Current Medications Medications (Trade) Dose Ordered Sig/[place] Route Start Time Stop Time Status Last Admin (NS 1000 ml Inj) 1,000 ml @ 100 mls/hr Q10H IV 05/22/17 14:00 05/22/17 23:48 (NS Flush) 2 ml UNSCH PRN IV FLUSH 05/22/17 13:45 05/23/17 07:35 (NS Flush) 2 ml BID IV FLUSH 05/22/17 21:00 05/22/17 19:56 (Tylenol) 650 mg Q4H PRN PO 05/22/17 13:45 (Zofran Inj) 4 mg Q6H PRN IVP 05/22/17 13:45 05/22/17 19:09 (Narcan Inj) 0.4 mg UNSCH PRN IV 05/22/17 13:45 (Raven-Colace) 1 tab BID PO 05/22/17 21:00 05/22/17 23:47 (Milk Of Magnesia Liq) 30 ml Q12H PRN PO 05/22/17 13:45 (Senokot) 17.2 mg Q12H PRN PO 05/22/17 13:45 (Dulcolax Supp) 10 mg DAILY PRN RECTAL 05/22/17 13:45 Lactulose 30 ml 30 ml DAILY PRN PO 05/22/17 13:45 Ciprofloxacin/ Dextrose 200 ml @ 200 mls/hr Q12H IV 05/22/17 15:00 05/23/17 02:50 (Flagyl 500 Mg Inj) 100 ml @ 100 mls/hr Q8H IV 05/22/17 16:00 05/23/17 08:08 (Ventolin Hfa Inh) 1 puff Q4H PRN INH 05/22/17 15:00 (Prinivil) 20 mg BID PO 05/22/17 21:00 05/22/17 23:47 (Pravachol) 40 mg DAILY PO 05/23/17 09:00 (Protonix Inj) 40 mg Q24H IV PUSH 05/22/17 15:00 05/22/17 15:04 (Habitrol 7 Mg Patch.24 Hr) 1 patch DAILY PRN T-DERMAL 05/22/17 15:00 (Mucinex Er) 600 mg BID PRN PO 7/24/17 15:15 (Dilaudid Pf Inj) 0.5 mg Q3H PRN IV PUSH 05/22/17 19:32 05/23/17 07:34 (Aspirin) 325 mg DAILY PO 05/23/17 10:00 (Glucotrol) 5 mg DAILY PO 05/23/17 10:00 Urinary Catheter: No Vascular Central Line Catheter: No A/P Problem List: (1) Abdominal wall abscess ICD Code: L02.211 Status: Acute (2) Acute diverticulitis ICD Code: K57.92 Status: Acute (3) Colonic diverticular abscess ICD Code: K57.20 Status: Acute Assessment and Plan 57-year-old male with history of situs inversus, diverticulitis, right abdominal wall abscess s/p drain placement/removal, HTN, HLD, hiatal hernia, multiple abdominal hernia repairs with mesh, GERD, presents with a four-day history of abdominal pain. Acute Diverticulitis with Sepsis: meets sepsis criteria with +leukocytosis WBC 13.7K and tachycardia HR 94, with source diverticulitis vs abscess. Tmax 100.4. Lactic acid 0.7. CT abd/pelvis images reviewed, shows marked induration and bowel wall thickening in the descending colon; induration in abdominal wall with small abscess present; direct visualization suggested to exclude underlying neoplasm. -blood cultures with NGTD -Continue antibiotics with IV Cipro/Flagyl -start Protonix IV, supportive treatment with IVF, antiemetics, pain control prn -advance diet, patient tolerating well -tumor markers ordered for concern for neoplasm, CEA markedly elevated at 350 ; AFP and CA 19-9 wnl. -Consult gastroenterology, appreciate recommendations -Consulted general surgeon Dr. Ross, recommends treatment with IV abx x7-10days in hospital, then colonoscopy by GI, then plans for resection Abdominal Wall Abscess: seen on CT as above. Patient has been evaluated by Dr. Ross in the past, discussed surgical intervention however patient declined at that time; now agrees. -consult surgeon Dr. Pierre as above, plans for surgical intervention after treatment with IV antibiotics and colonoscopy by GI -pain control with IV dilaudid prn Hypertension/Hyperlipidemia: chronic, stable -continue patient's lisinopril and statin Diabetes Mellitus: last HgbA1c 6.7 on 03/17/17, much improved from previous HgbA1c 10.1 on 05/26/15 -hold patient's metformin -Continue patient's glipizide -monitor accu-checks, cover with low dose SSI Tobacco Use: smokes 3-4 cigarettes daily -counseled on cessation -nicotine patch prn Asthma, Possible COPD with +tobacco use: chronic, not in exacerbation -continue patient's albuterol inhaler prn -incentive spirometry -encourage ambulation -mucinex bid prn DVT Prophylaxis: teds/SCDs Discharge Planning Admitted to inpatient, awaiting bed placement. Attending Statement The exam, history, and the medical decision-making described in the above note were completed with the assistance of the mid-level provider. I reviewed and agree with the findings presented. I attest that I had a [id number] encounter with the patient on the same day, and personally performed and documented my assessment and findings in the medical record. Patient seen in his bedroom in the presence of nurse at all times while I was in the room, he complaint about the food he wants to be placed on General diet, I explained I can not place him on General diet because he has DM II and Hypertension, he will need Heart Healthy diet and Diabetic Diet, unfortunately inside the Hospital we must try not to harm him and diet is one way to do it using the wrong food. Sera Gomez PA-C May 23, 2017 09:49 Theodore Dietrich MD May 23, 2017 17:23
[2017-05-23] MEDS: ASPIRIN 325 MG TAB PO SCH (09:51)
[2017-05-23] MEDS: glipiZIDE 5 MG TAB PO SCH (09:51)
[2017-05-23] MEDS ORDERED: GLUCAGON 1 MG/ML VIAL OTHER PRN (10:00)
[2017-05-23] MEDS ORDERED: DEXTROSE 50% IN WATER 50 ML VIAL(D50) IV PRN (10:00)
[2017-05-23] MEDS: SODIUM CHLORIDE 0.9% FLUSH 10 ML FLUSH IV FLUSH SCH ×2 (10:46→21:07)
--- NOTE | 2017-05-23 10:48 | PD.CAR.PN ---
CVT Progress Note Subjective/Hospital Course: Patient known to me from previous admissions and encounters. 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 Patient has recurrent diverticulitis with 3 episodes at which time patient had contained perforation into the anterior/lateral abdominal wall Each time patient was treated in the hospital with IV antibiotics and then discharged home on by mouth antibiotics. There was a high suspicion for a neoplasm at previous admissions from the get-go , but patient always fails to follow up and is very non-compliant with care. He didn't follow up with me or with GI for endoscopy. Each time patient was told to come back in follow-up to have colonoscopy followed by sigmoid resection and each time patient fell out of the follow-up. Patient states that he doesn't want surgical resection because he would end up with a colostomy. Of course if he did colostomy, it is reversible. At this point I believe the best way to deal with this is to keep patient Hospital treated with antibiotics have a colonoscopy while in the hospital and then proceed with sigmoid resection and primary anastomosis I am highly suspicious of a neoplasm and therefore, I will try to convince the patient that the surgery is the best option. At this point, patient should remain in the hospital on intravenous antibiotics for about 10 days and then have a colonoscopy and while he is still clean and prepped I will go ahead and resect the sigmoid. Will follow Beverley Ross 05/23/17 Abdomen is soft with active bowel sounds Somewhat tender in the right mid and lower abdomen consistent with previous contained perforation of sigmoid. CEA level very high which is certainly highly suspicious of a colonic neoplasm. I have spoken to the patient repeatedly in the past about the need of colon resection but as stated above patient falls out of the follow-up each time and once he did follow-up he refused colon resection if there was he was a chance of having a colostomy At this point we should keep the patient in the hospital, go ahead with colonoscopy in about a week and then proceed with colon resection all patient is still prepped Depending on the findings further therapy will be tailored I discussed this with patient and he agrees with the plan Objective: Vital Signs Date Time Temp Pulse Resp B/P Pulse Ox O2 Delivery O2 Flow Rate FiO2 05/23/17 08:40 98.0 88 22 124/68 94 05/23/17 04:00 86 05/23/17 03:50 100.4 91 20 115/65 93 05/23/17 00:35 99.3 83 20 108/63 95 05/22/17 19:09 98.0 87 18 110/74 96 Room Air 05/22/17 11:26 95 Labs: Laboratory Tests Test 05/23/17 06:04 White Blood Count 11.7 TH/MM3 (4.0-11.0) Red Blood Count 4.33 MIL/MM3 (4.50-5.90) Hemoglobin 9.6 GM/DL (13.0-17.0) Hematocrit 29.7 % (39.0-51.0) Mean Corpuscular Volume 68.6 FL (80.0-100.0) Mean Corpuscular Hemoglobin 22.1 PG (27.0-34.0) Mean Corpuscular Hemoglobin 32.2 % Concent (32.0-36.0) Red Cell Distribution Width 18.7 % (11.6-17.2) Platelet Count 305 TH/MM3 (150-450) Mean Platelet Volume 7.9 FL (7.0-11.0) Neutrophils (%) (Auto) 79.6 % (16.0-70.0) Lymphocytes (%) (Auto) 11.9 % (9.0-44.0) Monocytes (%) (Auto) 7.7 % (0.0-8.0) Eosinophils (%) (Auto) 0.5 % (0.0-4.0) Basophils (%) (Auto) 0.3 % (0.0-2.0) Neutrophils # (Auto) 9.3 TH/MM3 (1.8-7.7) Lymphocytes # (Auto) 1.4 TH/MM3 (1.0-4.8) Monocytes # (Auto) 0.9 TH/MM3 (0-0.9) Eosinophils # (Auto) 0.1 TH/MM3 (0-0.4) Basophils # (Auto) 0.0 TH/MM3 (0-0.2) CBC Comment DIFF FINAL Differential Comment Sodium Level 135 MEQ/L (136-145) Potassium Level 3.9 MEQ/L (3.5-5.1) Chloride Level 102 MEQ/L (98-107) Carbon Dioxide Level 23.8 MEQ/L (21.0-32.0) Anion Gap 9 MEQ/L (5-15) Blood Urea Nitrogen 15 MG/DL (7-18) Creatinine 1.06 MG/DL (0.60-1.30) Estimat Glomerular Filtration 72 ML/MIN (>89) Rate Random Glucose 89 MG/DL (74-106) Calcium Level 8.3 MG/DL (8.5-10.1) Total Bilirubin 0.7 MG/DL (0.2-1.0) Aspartate Amino Transf 27 U/L (15-37) (AST/SGOT) Alanine Aminotransferase 50 U/L (12-78) (ALT/SGPT) Alkaline Phosphatase 167 U/L (45-117) Total Protein 6.7 GM/DL (6.4-8.2) Albumin 2.5 GM/DL (3.4-5.0) Tumor Marker Alpha Fetoprotein 0.7 NG/ML (0.5-8.0) Carcinoembryonic Antigen 350.3 NG/ML (0.2-5.0) Result Diagram: 05/23/17 0604 05/23/17 0604 Maximino Pierre MD May 23, 2017 10:48
--- NOTE | 2017-05-23 11:28 | HHI.GIFU ---
Subjective Remarks Pt resting in bed in no apparent distress. Says his pain is still 10/10. Some nausea. No vomiting. Tolerating solid diet. No BM. no bleeding. (Vilma Shi) Objective Vitals I&O Vital Signs Date Time Temp Pulse Resp B/P Pulse Ox O2 Delivery O2 Flow Rate FiO2 05/23/17 08:40 98.0 88 22 124/68 94 05/23/17 04:00 86 05/23/17 03:50 100.4 91 20 115/65 93 05/23/17 00:35 99.3 83 20 108/63 95 05/22/17 19:09 98.0 87 18 110/74 96 Room Air 05/22/17 11:26 95 Laboratory Laboratory Tests Test 05/22/17 05/23/17 19:40 06:04 Lactic Acid Level 0.7 White Blood Count 11.7 Red Blood Count 4.33 Hemoglobin 9.6 Hematocrit 29.7 Mean Corpuscular Volume 68.6 Mean Corpuscular Hemoglobin 22.1 Mean Corpuscular Hemoglobin 32.2 Concent Red Cell Distribution Width 18.7 Platelet Count 305 Mean Platelet Volume 7.9 Neutrophils (%) (Auto) 79.6 Lymphocytes (%) (Auto) 11.9 Monocytes (%) (Auto) 7.7 Eosinophils (%) (Auto) 0.5 Basophils (%) (Auto) 0.3 Neutrophils # (Auto) 9.3 Lymphocytes # (Auto) 1.4 Monocytes # (Auto) 0.9 Eosinophils # (Auto) 0.1 Basophils # (Auto) 0.0 CBC Comment DIFF FINAL Differential Comment Sodium Level 135 Potassium Level 3.9 Chloride Level 102 Carbon Dioxide Level 23.8 Anion Gap 9 Blood Urea Nitrogen 15 Creatinine 1.06 Estimat Glomerular Filtration 72 Rate Random Glucose 89 Calcium Level 8.3 Total Bilirubin 0.7 Aspartate Amino Transf 27 (AST/SGOT) Alanine Aminotransferase 50 (ALT/SGPT) Alkaline Phosphatase 167 Total Protein 6.7 Albumin 2.5 Tumor Marker Alpha Fetoprotein 0.7 Carcinoembryonic Antigen 350.3 CA 19-9 Antigen 14.9 Date/Time Procedure Status Source Growth 05/22/17 15:20 Aerobic Blood Culture - Preliminary Resulted Blood Peripheral NO GROWTH IN 1 DAY 05/22/17 15:20 Anaerobic Blood Culture - Preliminary Resulted Blood Peripheral NO GROWTH IN 1 DAY Physical Exam HEENT: PERRL; normocephalic; atraumatic; no jaundice. CHEST: Rhonchi CARDIAC: could not auscultate over rhonchi and pt talking; pulse +2 and regular , radial ABDOMEN: asymmetric with bulge on right mid abdomen that is extremely TTP; no hepatosplenomegaly; bowel sounds are present in all four quadrants. EXTREMITIES: No clubbing, cyanosis, or edema. SKIN: Normal; no rash; no jaundice. [employer]IAN: No focal deficits; alert and oriented times three. (Vilma Shi) Assessment and Plan Plan ASSESSMENT - abdominal pain - right side, onset 4d ago, similar to pain with prev episodes diverticulitis. hx diverticulitis with abscess. CT 05-22-17-> bowel wall thickenign descending colon and induration c/w inflammatory process, underlying neoplasm excluded, evidence prev abd wall surgery, hiatal hernia, small abscess present. GS consulted- abx for now, no surgery at this time, requesting pt have colonoscopy. CEA elevated 350.3. AFP 0.7, CA 19-9 14.9. - isolated elevated ALP - 152. - leukocytosis - trending down. WBC 13.7 on admission. julia laws PLAN - abx - surgery requesting colonoscopy in 1 week just prior to surgery - supportive care - further recommendations to follow This pt seen by myself and DR Coelho and this note is written on his behalf ( Vilma Shi) Physician Comments Patient seen and examined Agree with above Continue with current supportive care Monitor labs Plan for colonoscopy this hospitalization with surgery to follow (Francisco Coelho MD) Vilma Shi May 23, 2017 11:28 Francisco Coelho MD May 23, 2017 22:26
[2017-05-23] MEDS: INSULIN ASPART SUPPLEMENTAL SCALE SQ SCH ×3 (12:30→21:00)
[2017-05-23] MEDS: SODIUM CHLOR 0.9% 1000 ML INJ 1,000 ML IV SCH ×2 (13:09→21:06)
[2017-05-23] MEDS: PANTOPRAZOLE SODIUM 40 MG VIAL IV PUSH SCH (15:32)
[2017-05-24] VITALS (7 sets, daily range): BP systolic 99–127; BP diastolic 57–88; PULSE 72–97; RESP 16–20; TEMP 95.7–99.2; O2SAT 93–97
[2017-05-24] MEDS: metroNIDAZOLE 500 MG INJ 100 ML IV SCH ×4 (00:36→23:00)
[2017-05-24] MEDS: HYDROmorphone HCL PF 1 MG/ML VIAL IV PUSH PRN ×8 (00:36→23:00)
[2017-05-24] MEDS: CIPROFLOXACIN 400 MG PREMIX 200 ML IV SCH ×2 (03:36→15:54)
[2017-05-24] MEDS: SODIUM CHLOR 0.9% 1000 ML INJ 1,000 ML IV SCH (06:00)
[2017-05-24] MEDS: INSULIN ASPART SUPPLEMENTAL SCALE SQ SCH ×4 (06:20→21:00)
[2017-05-24] MEDS: SODIUM CHLORIDE 0.9% FLUSH 10 ML FLUSH IV FLUSH SCH ×2 (10:22→19:44)
[2017-05-24] MEDS: DOCUSATE SODIUM 50 MG/SENNA 8.6 MG TAB PO SCH ×2 (10:23→19:44)
[2017-05-24] MEDS: ASPIRIN 325 MG TAB PO SCH (10:23)
[2017-05-24] MEDS: PRAVASTATIN SOD 40 MG TAB PO SCH (10:23)
[2017-05-24] MEDS: LISINOPRIL 20 MG TAB PO SCH ×2 (10:26→19:43)
[2017-05-24] MEDS: glipiZIDE 5 MG TAB PO SCH (10:27)
--- NOTE | 2017-05-24 11:43 | HHI.PR ---
Subjective Remarks Follow up for diverticulitis, abdominal abscess. Patient is currently doing well. However he reports significant pain not controlled with current pain medications. He denies any chest pain, shortness of breath, fever or chills. He would like to take a shower. Objective Vitals Vital Signs Date Time Temp Pulse Resp B/P Pulse Ox O2 Delivery O2 Flow Rate FiO2 05/24/17 08:09 97.1 72 18 100/67 93 05/24/17 07:24 18 05/24/17 04:46 99.2 76 18 122/68 96 05/24/17 00:07 98.9 82 20 99/57 95 05/23/17 19:58 98.2 82 18 116/71 95 05/23/17 14:31 98.0 82 20 123/73 95 I/O 05/23/17 05/23/17 05/23/17 05/24/17 05/24/17 05/24/17 07:00 15:00 23:00 07:00 15:00 23:00 Intake Total 962 ml 200 ml 200 ml Output Total 225 ml Balance 737 ml 200 ml 200 ml Intake Oral 662 ml 200 ml 200 ml IV Total 300 ml Output Urine Total 225 ml # Voids 1 1 Result Diagram: 05/23/17 0604 05/23/17 0604 Imaging Last Impressions Abdomen/Pelvis CT 05/22/17 1022 Signed Impressions: Service Date/Time: Monday, May 22, 2017 12:28 - CONCLUSION: 1. Bowel wall thickening descending colon and induration consistent with an inflammatory process.. Underlying neoplasm excluded. 2. Evidence for previous abdominal wall surgery 3. Hiatal hernia. 4. Findings have been discussed with the referring physician. Jose Garcia MD FACR Objective Remarks GENERAL: Alert, oriented 3, NAD. SKIN: Warm and dry. HEAD: Normocephalic. EYES: No scleral icterus. No injection or drainage. NECK: Supple, trachea midline. No JVD or lymphadenopathy. CARDIOVASCULAR: Regular rate and rhythm without murmurs, gallops, or rubs. RESPIRATORY: Breath sounds equal bilaterally. No accessory muscle use. GASTROINTESTINAL: Abdomen soft, nondistended. Right side of the abdomen tender to palpation. MUSCULOSKELETAL: No cyanosis, or edema. BACK: Nontender without obvious deformity. No CVA tenderness. Procedures None A/P Problem List: (1) Abdominal wall abscess ICD Code: L02.211 Status: Acute (2) Acute diverticulitis ICD Code: K57.92 Status: Acute (3) Colonic diverticular abscess ICD Code: K57.20 Status: Acute Assessment and Plan Mr. Mendez is a 57-year-old male with history of situs inversus, diverticulitis , right abdominal wall abscess s/p drain placement/removal, HTN, HLD, hiatal hernia, multiple abdominal hernia repairs with mesh, GERD, presents with a four- day history of abdominal pain. Acute Diverticulitis with Sepsis: meets sepsis criteria with +leukocytosis WBC 13.7K and tachycardia HR 94, with source diverticulitis vs abscess. Tmax 100.4. Lactic acid 0.7. CT abd/pelvis images reviewed, shows marked induration and bowel wall thickening in the descending colon; induration in abdominal wall with small abscess present; direct visualization suggested to exclude underlying neoplasm. - blood cultures with NGTD - Continue antibiotics with IV Cipro/Flagyl. Discussed with Dr. Boston on 05/24/2017 who recommended continuation of IV abx. - Switch IV to PO protonix. D/C IV fluid, patient is doing well with oral intake. - advance diet, patient tolerating well - tumor markers ordered for concern for neoplasm, CEA markedly elevated at 350; AFP and CA 19-9 wnl. - Consulted general surgeon Dr. Ross, recommends treatment with IV abx x7- 10days in hospital, then colonoscopy by GI, then plans for resection - Will change pain medications - Start Acetaminophen for Pain 1-3, Percocet for pain 4-7 and Increase IV Dilaudid from 0.5mg to 1mg Q3hrs for Pain 8-10 - All PRN. Abdominal Wall Abscess: seen on CT as above. Patient has been evaluated by Dr. Ross in the past, discussed surgical intervention however patient declined at that time; now agrees. - Dr. Pierre following, plans for surgical intervention after treatment with IV antibiotics and colonoscopy by GI Hypertension/Hyperlipidemia: chronic, stable -continue patient's lisinopril 20mg BID and Pravastatin 40mg Qday. - No indication for Aspirin 325mg. Will switch to Aspirin 81mg Qday. Diabetes Mellitus: last HgbA1c 6.7 on 03/17/17, much improved from previous HgbA1c 10.1 on 05/26/15 - hold patient's metformin - Continue patient's glipizide - monitor accu-checks, cover with low dose SSI. Blood glucose well controlled. Tobacco Use: smokes 3-4 cigarettes daily - counseled on cessation - nicotine patch prn Asthma, Possible COPD with +tobacco use: chronic, not in exacerbation -continue patient's albuterol inhaler prn -incentive spirometry -encourage ambulation -mucinex bid prn DVT Prophylaxis: teds/SCDs Boris Aguilera DO May 24, 2017 11:43 am
[2017-05-24] MEDS ORDERED: ACETAMINOPHEN 500 MG CPLT PO PRN (11:45)
[2017-05-24] MEDS: oxyCODONE/ACETAMINOPHEN 10 MG/325 MG TAB PO PRN ×3 (13:07→23:53)
[2017-05-24] MEDS: PANTOPRAZOLE SODIUM 40 MG VIAL IV PUSH SCH (13:08)
--- NOTE | 2017-05-24 13:41 | HHI.GIFU ---
Subjective Remarks Pt resting in bed in no apparent distress. he is upset b/c he can't shower, he' s not getting pain meds often enough, and his food is always late. He says last night his entire right side turned red. (Vilma Shi) Objective Vitals I&O Vital Signs Date Time Temp Pulse Resp B/P Pulse Ox O2 Delivery O2 Flow Rate FiO2 05/24/17 12:00 96.9 80 18 110/62 94 05/24/17 08:09 97.1 72 18 100/67 93 05/24/17 07:24 18 05/24/17 04:46 99.2 76 18 122/68 96 05/24/17 00:07 98.9 82 20 99/57 95 05/23/17 19:58 98.2 82 18 116/71 95 05/23/17 14:31 98.0 82 20 123/73 95 I/O 05/23/17 05/23/17 05/23/17 05/24/17 05/24/17 05/24/17 07:00 15:00 23:00 07:00 15:00 23:00 Intake Total 962 ml 200 ml 200 ml Output Total 225 ml Balance 737 ml 200 ml 200 ml Intake Oral 662 ml 200 ml 200 ml IV Total 300 ml Output Urine Total 225 ml # Voids 1 1 Laboratory Date/Time Procedure Status Source Growth 05/22/17 15:20 Aerobic Blood Culture - Preliminary Resulted Blood Peripheral NO GROWTH IN 2 DAYS 05/22/17 15:20 Anaerobic Blood Culture - Preliminary Resulted Blood Peripheral NO GROWTH IN 2 DAYS Imaging Last Impressions Abdomen/Pelvis CT 05/22/17 1022 Signed Impressions: Service Date/Time: Monday, May 22, 2017 12:28 - CONCLUSION: 1. Bowel wall thickening descending colon and induration consistent with an inflammatory process.. Underlying neoplasm excluded. 2. Evidence for previous abdominal wall surgery 3. Hiatal hernia. 4. Findings have been discussed with the referring physician. Jose Garcia MD FACR Physical Exam HEENT: PERRL; normocephalic; atraumatic; no jaundice. CHEST: Rhonchi CARDIAC: could not auscultate over rhonchi and pt talking; pulse +2 and regular , radial ABDOMEN: asymmetric with bulge on right mid abdomen that is extremely TTP, no redness; no hepatosplenomegaly; bowel sounds are present in all four quadrants. EXTREMITIES: No clubbing, cyanosis, or edema. SKIN: Normal; no rash; no jaundice. AN/SSN 2 4 OPERATOR: No focal deficits; alert and oriented times three. (Vilma Shi) Assessment and Plan Plan ASSESSMENT - abdominal pain - right side, onset 5d ago, similar to pain with prev episodes diverticulitis. hx diverticulitis with abscess. CT 05-22-17-> bowel wall thickenign descending colon and induration c/w inflammatory process, underlying neoplasm excluded, evidence prev abd wall surgery, hiatal hernia, small abscess present. GS consulted- abx for now, no surgery at this time, requesting pt have colonoscopy. CEA elevated 350.3. AFP 0.7, CA 19-9 14.9. - isolated elevated ALP - 152. - leukocytosis - trending down. WBC 13.7 on admission. julia laws PLAN - abx - surgery requesting colonoscopy in 1 week just prior to surgery, will plan for next week - supportive care - further recommendations to follow This pt seen by myself and DR Coelho and this note is written on his behalf ( Vilam Shi) Physician Comments Patient seen and examined Agree with above Continue with current supportive care Monitor labs (Francisco Coelho MD) Vilma Shi May 24, 2017 13:40 Francisco Coelho MD May 24, 2017 19:58
--- NOTE | 2017-05-24 16:23 | PD.CAR.PN ---
CVT Progress Note Subjective/Hospital Course: Patient known to me from previous admissions and encounters. 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 Patient has recurrent diverticulitis with 3 episodes at which time patient had contained perforation into the anterior/lateral abdominal wall Each time patient was treated in the hospital with IV antibiotics and then discharged home on by mouth antibiotics. There was a high suspicion for a neoplasm at previous admissions from the get-go , but patient always fails to follow up and is very non-compliant with care. He didn't follow up with me or with GI for endoscopy. Each time patient was told to come back in follow-up to have colonoscopy followed by sigmoid resection and each time patient fell out of the follow-up. Patient states that he doesn't want surgical resection because he would end up with a colostomy. Of course if he did colostomy, it is reversible. At this point I believe the best way to deal with this is to keep patient Hospital treated with antibiotics have a colonoscopy while in the hospital and then proceed with sigmoid resection and primary anastomosis I am highly suspicious of a neoplasm and therefore, I will try to convince the patient that the surgery is the best option. At this point, patient should remain in the hospital on intravenous antibiotics for about 10 days and then have a colonoscopy and while he is still clean and prepped I will go ahead and resect the sigmoid. Will follow Beverley Ross 05/23/17 Abdomen is soft with active bowel sounds Somewhat tender in the right mid and lower abdomen consistent with previous contained perforation of sigmoid. CEA level very high which is certainly highly suspicious of a colonic neoplasm. I have spoken to the patient repeatedly in the past about the need of colon resection but as stated above patient falls out of the follow-up each time and once he did follow-up he refused colon resection if there was he was a chance of having a colostomy At this point we should keep the patient in the hospital, go ahead with colonoscopy in about a week and then proceed with colon resection all patient is still prepped Depending on the findings further therapy will be tailored I discussed this with patient and he agrees with the plan 05/24/17 Abdomen soft active bowel sounds mildly tender in the right midabdomen no rebound or guarding CEA level 350, indicating probable adenocarcinoma Patient will have colonoscopy next week and this should be followed by sigmoid resection and primary anastomosis Objective: Vital Signs Date Time Temp Pulse Resp B/P Pulse Ox O2 Delivery O2 Flow Rate FiO2 05/24/17 15:12 95.7 81 18 124/80 97 05/24/17 12:00 96.9 80 18 110/62 94 05/24/17 08:09 97.1 72 18 100/67 93 05/24/17 07:24 18 05/24/17 04:46 99.2 76 18 122/68 96 05/24/17 00:07 98.9 82 20 99/57 95 05/23/17 19:58 98.2 82 18 116/71 95 Result Diagram: 05/23/17 0604 05/23/17 0604 Maximino Pierre MD May 24, 2017 16:23
[2017-05-24] MEDS: SODIUM CHLORIDE 0.9% FLUSH 10 ML FLUSH IV FLUSH PRN (20:15)
[2017-05-25] VITALS: BP 113/67; PULSE 80; RESP 19; TEMP 97.9; O2SAT 96
[2017-05-25] MEDS: CIPROFLOXACIN 400 MG PREMIX 200 ML IV SCH ×2 (02:04→14:57)
[2017-05-25] MEDS: HYDROmorphone HCL PF 1 MG/ML VIAL IV PUSH PRN ×8 (02:04→23:20)
[2017-05-25] MEDS: INSULIN ASPART SUPPLEMENTAL SCALE SQ SCH ×4 (05:52→20:19)
[2017-05-25] MEDS: oxyCODONE/ACETAMINOPHEN 10 MG/325 MG TAB PO PRN ×3 (05:55→21:30)
[2017-05-25 08:00] VITALS: BP 114/77; PULSE 82; RESP 16; TEMP 98; O2SAT 96
[2017-05-25] MEDS: metroNIDAZOLE 500 MG INJ 100 ML IV SCH ×3 (08:00→23:22)
[2017-05-25] MEDS: PRAVASTATIN SOD 40 MG TAB PO SCH (08:09)
[2017-05-25] MEDS: LISINOPRIL 20 MG TAB PO SCH ×2 (08:09→20:18)
[2017-05-25] MEDS: ASPIRIN 325 MG TAB PO SCH (08:09)
[2017-05-25] MEDS: PANTOPRAZOLE SOD 40 MG DELAYED RELEASE TAB PO SCH (08:09)
[2017-05-25] MEDS: DOCUSATE SODIUM 50 MG/SENNA 8.6 MG TAB PO SCH ×2 (08:09→20:18)
[2017-05-25] MEDS: glipiZIDE 5 MG TAB PO SCH (08:09)
[2017-05-25] MEDS: SODIUM CHLORIDE 0.9% FLUSH 10 ML FLUSH IV FLUSH SCH ×2 (08:09→20:19)
[2017-05-25 12:00] VITALS: BP 138/71; PULSE 82; RESP 16; TEMP 96.6; O2SAT 98
[2017-05-25 16:00] VITALS: BP 114/69; PULSE 76; RESP 16; TEMP 97.6; O2SAT 98
--- NOTE | 2017-05-25 17:02 | HHI.PR ---
Subjective Remarks Follow up for diverticulitis, abdominal abscess. Patient is currently doing well. He complains of right-sided abdominal bulge. No fever or chills. Objective Vitals Vital Signs Date Time Temp Pulse Resp B/P Pulse Ox O2 Delivery O2 Flow Rate FiO2 05/25/17 16:00 97.6 76 16 114/69 98 05/25/17 12:00 96.6 82 16 138/71 98 05/25/17 08:00 98.0 82 16 114/77 96 05/25/17 00:00 97.9 80 19 113/67 96 05/24/17 20:00 97.0 97 18 127/88 95 I/O 05/24/17 05/24/17 05/24/17 05/25/17 05/25/17 05/25/17 07:00 15:00 23:00 07:00 15:00 23:00 Intake Total 200 ml 200 ml 500 ml 240 ml 1200 ml Output Total 1000 ml 1000 ml Balance 200 ml 200 ml 500 ml -760 ml 200 ml Intake Oral 200 ml 200 ml 500 ml 240 ml 1100 ml IV Total 100 ml Output Urine Total 1000 ml 1000 ml # Voids 4 4 # Bowel Movements 0 Result Diagram: 05/23/17 0604 05/23/17 0604 Imaging Last Impressions Abdomen/Pelvis CT 05/22/17 1022 Signed Impressions: Service Date/Time: Monday, May 22, 2017 12:28 - CONCLUSION: 1. Bowel wall thickening descending colon and induration consistent with an inflammatory process.. Underlying neoplasm excluded. 2. Evidence for previous abdominal wall surgery 3. Hiatal hernia. 4. Findings have been discussed with the referring physician. Jose Garcia MD FACR Objective Remarks GENERAL: Alert, oriented 3, NAD. SKIN: Warm and dry. HEAD: Normocephalic. EYES: No scleral icterus. No injection or drainage. NECK: Supple, trachea midline. No JVD or lymphadenopathy. CARDIOVASCULAR: Regular rate and rhythm without murmurs, gallops, or rubs. RESPIRATORY: Breath sounds equal bilaterally. No accessory muscle use. GASTROINTESTINAL: Abdomen soft, nondistended. Right side of the abdomen tender to palpation. There is a bulge from the right side of the abdomen. MUSCULOSKELETAL: No cyanosis, or edema. BACK: Nontender without obvious deformity. No CVA tenderness. Procedures None A/P Problem List: (1) Abdominal wall abscess ICD Code: L02.211 Status: Acute (2) Acute diverticulitis ICD Code: K57.92 Status: Acute (3) Colonic diverticular abscess ICD Code: K57.20 Status: Acute Assessment and Plan Mr. Mendez is a 57-year-old male with history of situs inversus, diverticulitis , right abdominal wall abscess s/p drain placement/removal, HTN, HLD, hiatal hernia, multiple abdominal hernia repairs with mesh, GERD, presents with a four- day history of abdominal pain. Acute Diverticulitis with Sepsis: meets sepsis criteria with +leukocytosis WBC 13.7K and tachycardia HR 94, with source diverticulitis vs abscess. Tmax 100.4. Lactic acid 0.7. CT abd/pelvis images reviewed, shows marked induration and bowel wall thickening in the descending colon; induration in abdominal wall with small abscess present; direct visualization suggested to exclude underlying neoplasm. - blood cultures with NGTD - Continue antibiotics with IV Cipro/Flagyl. Discussed with Dr. Boston on 05/24/2017 who recommended continuation of IV abx. - Switch IV to PO protonix. D/C IV fluid, patient is doing well with oral intake. - advance diet, patient tolerating well - tumor markers ordered for concern for neoplasm, CEA markedly elevated at 350; AFP and CA 19-9 wnl. - Consulted general surgeon Dr. Ross, recommends treatment with IV abx x7- 10days in hospital, then colonoscopy by GI, then plans for resection - Will change pain medications - Continue Acetaminophen for Pain 1-3, Percocet for pain 4-7 and IV Dilaudid 1mg Q3hrs for Pain 8-10 - All PRN. Abdominal Wall Abscess: seen on CT as above. Patient has been evaluated by Dr. Ross in the past, discussed surgical intervention however patient declined at that time; now agrees. - Dr. Pierre following, plans for surgical intervention after treatment with IV antibiotics and colonoscopy by GI Hypertension/Hyperlipidemia: chronic, stable - continue patient's lisinopril 20mg BID and Pravastatin 40mg Qday. - continue Aspirin 81mg Qday. Diabetes Mellitus: last HgbA1c 6.7 on 03/17/17, much improved from previous HgbA1c 10.1 on 05/26/15 - hold patient's metformin - Continue patient's glipizide - monitor accu-checks, cover with low dose SSI. Blood glucose well controlled. Tobacco Use: smokes 3-4 cigarettes daily - counseled on cessation - nicotine patch prn Asthma, Possible COPD with +tobacco use: chronic, not in exacerbation -continue patient's albuterol inhaler prn -incentive spirometry -encourage ambulation -mucinex bid prn Full code. SCDs Boris Aguilera DO May 25, 2017 5:02 pm
--- NOTE | 2017-05-25 17:55 | HHI.GIFU ---
Subjective Remarks Pt resting in bed, says he is feeling better overall although his pain has now doubled. He is happy that on this floor the food arrives on time and the meds are given on time. He is agreeable with colonoscopy and surgery next week. ( Vilma Shi) Objective Vitals I&O Vital Signs Date Time Temp Pulse Resp B/P Pulse Ox O2 Delivery O2 Flow Rate FiO2 05/25/17 16:00 97.6 76 16 114/69 98 05/25/17 12:00 96.6 82 16 138/71 98 05/25/17 08:00 98.0 82 16 114/77 96 05/25/17 00:00 97.9 80 19 113/67 96 05/24/17 20:00 97.0 97 18 127/88 95 I/O 05/24/17 05/24/17 05/24/17 05/25/17 05/25/17 05/25/17 07:00 15:00 23:00 07:00 15:00 23:00 Intake Total 200 ml 200 ml 500 ml 240 ml 1200 ml Output Total 1000 ml 1000 ml Balance 200 ml 200 ml 500 ml -760 ml 200 ml Intake Oral 200 ml 200 ml 500 ml 240 ml 1100 ml IV Total 100 ml Output Urine Total 1000 ml 1000 ml # Voids 4 4 # Bowel Movements 0 Laboratory Date/Time Procedure Status Source Growth 05/22/17 15:20 Aerobic Blood Culture - Preliminary Resulted Blood Peripheral NO GROWTH IN 3 DAYS 05/22/17 15:20 Anaerobic Blood Culture - Preliminary Resulted Blood Peripheral NO GROWTH IN 3 DAYS Imaging Last Impressions Abdomen/Pelvis CT 05/22/17 1022 Signed Impressions: Service Date/Time: Monday, May 22, 2017 12:28 - CONCLUSION: 1. Bowel wall thickening descending colon and induration consistent with an inflammatory process.. Underlying neoplasm excluded. 2. Evidence for previous abdominal wall surgery 3. Hiatal hernia. 4. Findings have been discussed with the referring physician. Jose Garcia MD FACR Physical Exam HEENT: PERRL; normocephalic; atraumatic; no jaundice. CHEST: Rhonchi CARDIAC: could not auscultate over rhonchi and pt talking; pulse +2 and regular , radial ABDOMEN: asymmetric with bulge on right mid abdomen that is TTP, mild erythema ; no hepatosplenomegaly; bowel sounds are present in all four quadrants. EXTREMITIES: No clubbing, cyanosis, or edema. SKIN: Normal; no rash; no jaundice. ENTRY EXAMINER: No focal deficits; alert and oriented times three. (Vilma Shi) Assessment and Plan Plan ASSESSMENT - abdominal pain - he says his pain has doubled although he feels better today and is less tender on exam. right side, similar to pain with prev episodes diverticulitis. hx diverticulitis with abscess. CT 05-22-17-> bowel wall thickenign descending colon and induration c/w inflammatory process, underlying neoplasm excluded, evidence prev abd wall surgery, hiatal hernia, small abscess present. GS consulted- abx for now, no surgery at this time, requesting pt have colonoscopy. CEA elevated 350.3. AFP 0.7, CA 19-9 14.9. - isolated elevated ALP - 152. - leukocytosis - trending down. WBC 13.7 on admission. julia laws PLAN - abx - surgery requesting colonoscopy, just prior to surgery, will plan for next week - supportive care - further recommendations to follow This pt seen by myself and DR Coelho and this note is written on his behalf ( Vilma Shi) Physician Comments Patient seen and examined Agree with above Continue with current supportive care Monitor labs (Francisco Coelho MD) Vilma Shi May 25, 2017 17:55 Francisco Coelho MD May 25, 2017 21:35
[2017-05-25 20:02] VITALS: BP 122/72; PULSE 89; RESP 18; TEMP 96.4; O2SAT 98
[2017-05-25 23:52] VITALS: BP 126/73; PULSE 80; RESP 18; TEMP 98.9; O2SAT 96
[2017-05-26] MEDS: oxyCODONE/ACETAMINOPHEN 10 MG/325 MG TAB PO PRN ×6 (01:23→22:49)
[2017-05-26] MEDS: HYDROmorphone HCL PF 1 MG/ML VIAL IV PUSH PRN ×6 (02:20→23:45)
[2017-05-26] MEDS: CIPROFLOXACIN 400 MG PREMIX 200 ML IV SCH ×2 (02:22→14:51)
[2017-05-26] MEDS: INSULIN ASPART SUPPLEMENTAL SCALE SQ SCH ×3 (06:20→20:23)
[2017-05-26 08:00] VITALS: BP 108/63; PULSE 78; RESP 18; TEMP 97.4; O2SAT 94
[2017-05-26] MEDS: DOCUSATE SODIUM 50 MG/SENNA 8.6 MG TAB PO SCH ×2 (08:28→20:21)
[2017-05-26] MEDS: PRAVASTATIN SOD 40 MG TAB PO SCH (08:28)
[2017-05-26] MEDS: ASPIRIN 325 MG TAB PO SCH (08:29)
[2017-05-26] MEDS: glipiZIDE 5 MG TAB PO SCH (08:29)
[2017-05-26] MEDS: PANTOPRAZOLE SOD 40 MG DELAYED RELEASE TAB PO SCH (08:29)
[2017-05-26] MEDS: LISINOPRIL 20 MG TAB PO SCH ×2 (08:29→20:21)
[2017-05-26] MEDS: metroNIDAZOLE 500 MG INJ 100 ML IV SCH ×3 (08:30→23:47)
[2017-05-26] MEDS: SODIUM CHLORIDE 0.9% FLUSH 10 ML FLUSH IV FLUSH SCH ×2 (08:30→20:21)
--- NOTE | 2017-05-26 11:31 | HHI.PR ---
Subjective Remarks Follow up for diverticulitis, abdominal abscess. Patient is anxious about his right sided abdominal bulge. He reports no fever, chills. He is worried about possible perforation. Objective Vitals Vital Signs Date Time Temp Pulse Resp B/P Pulse Ox O2 Delivery O2 Flow Rate FiO2 05/26/17 08:00 97.4 78 18 108/63 94 05/25/17 23:52 98.9 80 18 126/73 96 05/25/17 22:30 20 05/25/17 20:02 96.4 89 18 122/72 98 05/25/17 16:00 97.6 76 16 114/69 98 05/25/17 12:00 96.6 82 16 138/71 98 I/O 05/25/17 05/25/17 05/25/17 05/26/17 05/26/17 05/26/17 07:00 15:00 23:00 07:00 15:00 23:00 Intake Total 240 ml 1200 ml 380 ml 480 ml Output Total 1000 ml 1000 ml 260 ml 700 ml Balance -760 ml 200 ml 120 ml -220 ml Intake Oral 240 ml 1100 ml 380 ml 480 ml IV Total 100 ml Output Urine Total 1000 ml 1000 ml 260 ml 700 ml # Voids 4 2 # Bowel Movements 0 0 Result Diagram: 05/23/17 0604 05/23/17 0604 Imaging Last Impressions Abdomen/Pelvis CT 05/22/17 1022 Signed Impressions: Service Date/Time: Monday, May 22, 2017 12:28 - CONCLUSION: 1. Bowel wall thickening descending colon and induration consistent with an inflammatory process.. Underlying neoplasm excluded. 2. Evidence for previous abdominal wall surgery 3. Hiatal hernia. 4. Findings have been discussed with the referring physician. Jose Garcia MD FACR Objective Remarks GENERAL: Alert, oriented 3, NAD. SKIN: Warm and dry. HEAD: Normocephalic. EYES: No scleral icterus. No injection or drainage. NECK: Supple, trachea midline. No JVD or lymphadenopathy. CARDIOVASCULAR: Regular rate and rhythm without murmurs, gallops, or rubs. RESPIRATORY: Breath sounds equal bilaterally. No accessory muscle use. GASTROINTESTINAL: Abdomen soft, nondistended. Right side of the abdomen tender to palpation. There is a bulge from the right side of the abdomen. MUSCULOSKELETAL: No cyanosis, or edema. BACK: Nontender without obvious deformity. No CVA tenderness. Procedures None A/P Problem List: (1) Abdominal wall abscess ICD Code: L02.211 Status: Acute (2) Acute diverticulitis ICD Code: K57.92 Status: Acute (3) Colonic diverticular abscess ICD Code: K57.20 Status: Acute Assessment and Plan Mr. Mendez is a 57-year-old male with history of situs inversus, diverticulitis , right abdominal wall abscess s/p drain placement/removal, HTN, HLD, hiatal hernia, multiple abdominal hernia repairs with mesh, GERD, presents with a four- day history of abdominal pain. Acute Diverticulitis with Sepsis: meets sepsis criteria with +leukocytosis WBC 13.7K and tachycardia HR 94, with source diverticulitis vs abscess. Tmax 100.4. Lactic acid 0.7. CT abd/pelvis images reviewed, shows marked induration and bowel wall thickening in the descending colon; induration in abdominal wall with small abscess present; direct visualization suggested to exclude underlying neoplasm. - blood cultures with NGTD - Continue antibiotics with IV Cipro/Flagyl. Discussed with Dr. Boston on 05/24/2017 who recommended continuation of IV abx. - Switch IV to PO protonix. D/C IV fluid, patient is doing well with oral intake. - advance diet, patient tolerating well - tumor markers ordered for concern for neoplasm, CEA markedly elevated at 350; AFP and CA 19-9 wnl. - Consulted general surgeon Dr. Ross, recommends treatment with IV abx x7- 10days in hospital, then colonoscopy by GI, then plans for resection - Continue Acetaminophen for Pain 1-3, Percocet for pain 4-7 and IV Dilaudid 1mg Q3hrs for Pain 8-10 - All PRN. - Discussed with Dr. Ross on 05/26/2017. He will order retroperitoneal abscess drainage by IR today. Abdominal Wall Abscess: seen on CT as above. Patient has been evaluated by Dr. Ross in the past, discussed surgical intervention however patient declined at that time; now agrees. - Dr. Pierre following, plans for surgical intervention after treatment with IV antibiotics and colonoscopy by GI Hypertension/Hyperlipidemia: chronic, stable - continue patient's lisinopril 20mg BID and Pravastatin 40mg Qday. - continue Aspirin 81mg Qday. Diabetes Mellitus: last HgbA1c 6.7 on 03/17/17, much improved from previous HgbA1c 10.1 on 05/26/15 - hold patient's metformin - Continue patient's glipizide - monitor accu-checks, cover with low dose SSI. Blood glucose well controlled. Tobacco Use: smokes 3-4 cigarettes daily - counseled on cessation - nicotine patch prn Asthma, Possible COPD with +tobacco use: chronic, not in exacerbation -continue patient's albuterol inhaler prn -incentive spirometry -encourage ambulation -mucinex bid prn Full code. Boris Castro DO May 26, 2017 11:31 am
[2017-05-26 12:00] VITALS: BP 125/74; PULSE 93; RESP 18; TEMP 97.1; O2SAT 95
--- NOTE | 2017-05-26 14:53 | PD.CAR.PN ---
CVT Progress Note Subjective/Hospital Course: Patient known to me from previous admissions and encounters. 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 Patient has recurrent diverticulitis with 3 episodes at which time patient had contained perforation into the anterior/lateral abdominal wall Each time patient was treated in the hospital with IV antibiotics and then discharged home on by mouth antibiotics. There was a high suspicion for a neoplasm at previous admissions from the get-go , but patient always fails to follow up and is very non-compliant with care. He didn't follow up with me or with GI for endoscopy. Each time patient was told to come back in follow-up to have colonoscopy followed by sigmoid resection and each time patient fell out of the follow-up. Patient states that he doesn't want surgical resection because he would end up with a colostomy. Of course if he did colostomy, it is reversible. At this point I believe the best way to deal with this is to keep patient Hospital treated with antibiotics have a colonoscopy while in the hospital and then proceed with sigmoid resection and primary anastomosis I am highly suspicious of a neoplasm and therefore, I will try to convince the patient that the surgery is the best option. At this point, patient should remain in the hospital on intravenous antibiotics for about 10 days and then have a colonoscopy and while he is still clean and prepped I will go ahead and resect the sigmoid. Will follow Beverley Ross 05/23/17 Abdomen is soft with active bowel sounds Somewhat tender in the right mid and lower abdomen consistent with previous contained perforation of sigmoid. CEA level very high which is certainly highly suspicious of a colonic neoplasm. I have spoken to the patient repeatedly in the past about the need of colon resection but as stated above patient falls out of the follow-up each time and once he did follow-up he refused colon resection if there was he was a chance of having a colostomy At this point we should keep the patient in the hospital, go ahead with colonoscopy in about a week and then proceed with colon resection all patient is still prepped Depending on the findings further therapy will be tailored I discussed this with patient and he agrees with the plan 05/24/17 Abdomen soft active bowel sounds mildly tender in the right midabdomen no rebound or guarding CEA level 350, indicating probable adenocarcinoma Patient will have colonoscopy next week and this should be followed by sigmoid resection and primary anastomosis 7/28/17 Abdomen soft with active bowel sounds Now that antibiotics have taken effect inflammatory phlegmon is shrinking down and patient has developing a collection in the right mid lateral abdomen wall This is happen the last time and at that time patient was offered sigmoid resection which she refused There is no question my mind that cancer is a component of this lesion Patient will need a CT-guided or ultrasound guided placement of a pigtail catheter into this abscess cavity Patient will be then colonoscoped by the end of next week and then of surgery there after Theoretically patient could be discharged and go home on by mouth antibiotics but again he will never come back to things get bad again so it's probably better to just keep him in the hospital at this point Objective: Vital Signs Date Time Temp Pulse Resp B/P Pulse Ox O2 Delivery O2 Flow Rate FiO2 05/26/17 12:00 97.1 93 18 125/74 95 05/26/17 08:00 97.4 78 18 108/63 94 05/25/17 23:52 98.9 80 18 126/73 96 05/25/17 22:30 20 05/25/17 20:02 96.4 89 18 122/72 98 05/25/17 16:00 97.6 76 16 114/69 98 Result Diagram: 05/23/17 0604 05/23/17 0604 Maximino Pierre MD May 26, 2017 14:53
[2017-05-26] MEDS ORDERED: LIDOCAINE 1%/EPINEPHrine 1:100,000 SOLN 20 ML VIAL ONE (15:23)
--- NOTE | 2017-05-26 15:51 | HHI.GIFU ---
Subjective Remarks Pt getting ready to go for procedure. No new complaints. (Vilma Shi STONE LAYOUT MARKER) Objective Vitals I&O Vital Signs Date Time Temp Pulse Resp B/P Pulse Ox O2 Delivery O2 Flow Rate FiO2 05/26/17 12:00 97.1 93 18 125/74 95 05/26/17 08:00 97.4 78 18 108/63 94 05/25/17 23:52 98.9 80 18 126/73 96 05/25/17 22:30 20 05/25/17 20:02 96.4 89 18 122/72 98 05/25/17 16:00 97.6 76 16 114/69 98 I/O 05/25/17 05/25/17 05/25/17 05/26/17 05/26/17 05/26/17 07:00 15:00 23:00 07:00 15:00 23:00 Intake Total 240 ml 1200 ml 380 ml 480 ml 940 ml Output Total 1000 ml 1000 ml 260 ml 700 ml Balance -760 ml 200 ml 120 ml -220 ml 940 ml Intake Oral 240 ml 1100 ml 380 ml 480 ml 940 ml IV Total 100 ml Output Urine Total 1000 ml 1000 ml 260 ml 700 ml # Voids 4 2 3 # Bowel Movements 0 0 0 Laboratory Date/Time Procedure Status Source Growth 05/22/17 15:20 Aerobic Blood Culture - Preliminary Resulted Blood Peripheral NO GROWTH IN 4 DAYS 05/22/17 15:20 Anaerobic Blood Culture - Preliminary Resulted Blood Peripheral NO GROWTH IN 4 DAYS Imaging Last Impressions Abdomen/Pelvis CT 05/22/17 1022 Signed Impressions: Service Date/Time: Monday, May 22, 2017 12:28 - CONCLUSION: 1. Bowel wall thickening descending colon and induration consistent with an inflammatory process.. Underlying neoplasm excluded. 2. Evidence for previous abdominal wall surgery 3. Hiatal hernia. 4. Findings have been discussed with the referring physician. Jose Garcia MD FACR Physical Exam HEENT: PERRL; normocephalic; atraumatic; no jaundice. CHEST: Rhonchi CARDIAC: could not auscultate over rhonchi and pt talking; pulse +2 and regular , radial ABDOMEN: asymmetric with bulge on right mid abdomen that is TTP and firm today , mild erythema; no hepatosplenomegaly; bowel sounds are present in all four quadrants. EXTREMITIES: No clubbing, cyanosis, or edema. SKIN: Normal; no rash; no jaundice. AUTO LOCATOR: No focal deficits; alert and oriented times three. (Vilma Shi) Assessment and Plan Plan ASSESSMENT - abdominal pain - he says his pain has doubled although he fis less tender on exam. right side, similar to pain with prev episodes diverticulitis. hx diverticulitis with abscess. CT 05-22-17-> bowel wall thickenign descending colon and induration c/w inflammatory process, underlying neoplasm excluded, evidence prev abd wall surgery, hiatal hernia, small abscess present. GS consulted- abx, going for CT guided placement pigtail cath in abscess. colonoscopy and surgery next wk. CEA elevated 350.3. AFP 0.7, CA 19-9 14.9. - isolated elevated ALP - 152. - leukocytosis - trending down. WBC 13.7 on admission. julia laws PLAN - continue abx - await placement pigtail cath - colonoscopy next week prior to surgery - supportive care - further recommendations to follow This pt seen by myself and DR Coelho and this note is written on his behalf ( Vilma Shi) Physician Comments Patient seen and examined Agree with above Continue with current supportive care Monitor labs Colonoscopy next week (Francisco Coelho MD) Vilma Shi May 26, 2017 15:51 Francisco Coelho MD May 26, 2017 22:09
[2017-05-26 16:00] VITALS: BP 121/76; PULSE 79; RESP 19; TEMP 97.7; O2SAT 93
[2017-05-26] MEDS ORDERED: fentaNYL CITRATE 250 MCG/5 ML AMP ONE (16:01)
[2017-05-26] MEDS ORDERED: BUPIVACAINE HCL PF 0.75% 10 ML VIAL ONE (16:08)
[2017-05-26 20:00] VITALS: BP 120/70; PULSE 101; RESP 20; TEMP 98.4; O2SAT 94
[2017-05-27] VITALS: BP 124/77; PULSE 103; RESP 20; TEMP 97.3; O2SAT 96
[2017-05-27] MEDS: HYDROmorphone HCL PF 1 MG/ML VIAL IV PUSH PRN ×6 (02:45→21:20)
[2017-05-27] MEDS: CIPROFLOXACIN 400 MG PREMIX 200 ML IV SCH ×2 (02:46→15:11)
[2017-05-27] MEDS: oxyCODONE/ACETAMINOPHEN 10 MG/325 MG TAB PO PRN ×5 (03:50→20:16)
[2017-05-27] MEDS: INSULIN ASPART SUPPLEMENTAL SCALE SQ SCH ×4 (04:03→20:19)
[2017-05-27 08:00] VITALS: BP 105/63; PULSE 66; RESP 20; TEMP 96.9; O2SAT 95
[2017-05-27] MEDS: DOCUSATE SODIUM 50 MG/SENNA 8.6 MG TAB PO SCH ×2 (08:20→20:15)
[2017-05-27] MEDS: LISINOPRIL 20 MG TAB PO SCH ×2 (08:20→20:15)
[2017-05-27] MEDS: glipiZIDE 5 MG TAB PO SCH (08:20)
[2017-05-27] MEDS: ASPIRIN 325 MG TAB PO SCH (08:20)
[2017-05-27] MEDS: PRAVASTATIN SOD 40 MG TAB PO SCH (08:21)
[2017-05-27] MEDS: PANTOPRAZOLE SOD 40 MG DELAYED RELEASE TAB PO SCH (08:24)
[2017-05-27] MEDS: metroNIDAZOLE 500 MG INJ 100 ML IV SCH ×2 (08:25→16:40)
[2017-05-27] MEDS: SODIUM CHLORIDE 0.9% FLUSH 10 ML FLUSH IV FLUSH SCH ×2 (08:25→20:16)
--- NOTE | 2017-05-27 10:08 | HHI.PR ---
Subjective Remarks Follow up for diverticulitis, abdominal abscess. Patient underwent drain placement by IR for right sided abdominal abscess. Feels better. However, he complains of persistent pain but says current pain medications are helping. Objective Vitals Vital Signs Date Time Temp Pulse Resp B/P Pulse Ox O2 Delivery O2 Flow Rate FiO2 05/27/17 09:25 18 05/27/17 08:00 96.9 66 20 105/63 95 05/27/17 00:00 18 05/27/17 00:00 97.3 103 20 124/77 96 05/26/17 20:00 98.4 101 20 120/70 94 05/26/17 16:00 97.7 79 19 121/76 93 05/26/17 12:00 97.1 93 18 125/74 95 I/O 05/26/17 05/26/17 05/26/17 05/27/17 05/27/17 05/27/17 06:59 14:59 22:59 06:59 14:59 22:59 Intake Total 480 ml 940 ml 320 ml 1200 ml 120 ml Output Total 700 ml 30 ml Balance -220 ml 940 ml 320 ml 1170 ml 120 ml Intake Oral 480 ml 940 ml 1200 ml 120 ml IV Total 320 ml Output Urine Total 700 ml Drainage Total 30 ml # Voids 3 4 # Bowel Movements 0 1 Result Diagram: 05/23/17 0604 05/23/17 0604 Imaging Last Impressions Abdomen/Pelvis CT 05/22/17 1022 Signed Impressions: Service Date/Time: Monday, May 22, 2017 12:28 - CONCLUSION: 1. Bowel wall thickening descending colon and induration consistent with an inflammatory process.. Underlying neoplasm excluded. 2. Evidence for previous abdominal wall surgery 3. Hiatal hernia. 4. Findings have been discussed with the referring physician. Jose Garcia MD FACR Objective Remarks GENERAL: Alert, oriented 3, NAD. SKIN: Warm and dry. HEAD: Normocephalic. EYES: No scleral icterus. No injection or drainage. NECK: Supple, trachea midline. No JVD or lymphadenopathy. CARDIOVASCULAR: Regular rate and rhythm without murmurs, gallops, or rubs. RESPIRATORY: Breath sounds equal bilaterally. No accessory muscle use. GASTROINTESTINAL: Abdomen soft, nondistended. Right side of the abdomen tender to palpation. There is a bulge from the right side of the abdomen. MUSCULOSKELETAL: No cyanosis, or edema. BACK: Nontender without obvious deformity. No CVA tenderness. Procedures Pigtail catheter drain placement by IR 05/26/2017 A/P Problem List: (1) Abdominal wall abscess ICD Code: L02.211 Status: Acute (2) Acute diverticulitis ICD Code: K57.92 Status: Acute (3) Colonic diverticular abscess ICD Code: K57.20 Status: Acute Assessment and Plan Mr. Mendez is a 57-year-old male with history of situs inversus, diverticulitis , right abdominal wall abscess s/p drain placement/removal, HTN, HLD, hiatal hernia, multiple abdominal hernia repairs with mesh, GERD, presents with a four- day history of abdominal pain. Acute Diverticulitis with Sepsis: meets sepsis criteria with +leukocytosis WBC 13.7K and tachycardia HR 94, with source diverticulitis vs abscess. Tmax 100.4. Lactic acid 0.7. CT abd/pelvis images reviewed, shows marked induration and bowel wall thickening in the descending colon; induration in abdominal wall with small abscess present; direct visualization suggested to exclude underlying neoplasm. - blood cultures with NGTD - Continue antibiotics with IV Cipro/Flagyl. Discussed with Dr. Boston on 05/24/2017 who recommended continuation of IV abx. - Continue PO protonix. - advanced diet, patient tolerating well - tumor markers ordered for concern for neoplasm, CEA markedly elevated at 350; AFP and CA 19-9 wnl. - Consulted general surgeon Dr. Ross, recommends treatment with IV abx x7- 10days in hospital, then colonoscopy by GI, then plans for resection - Continue Acetaminophen for Pain 1-3, Percocet for pain 4-7 and IV Dilaudid 1mg Q3hrs for Pain 8-10 - All PRN. - Likely Colonoscopy early next week and then surgical interventions. Abdominal Wall Abscess: seen on CT as above. Patient has been evaluated by Dr. Ross in the past, discussed surgical intervention however patient declined at that time; now agrees. - Dr. Pierre following, plans for surgical intervention after treatment with IV antibiotics and colonoscopy by GI Hypertension/Hyperlipidemia: chronic, stable - continue patient's lisinopril 20mg BID and Pravastatin 40mg Qday. - continue Aspirin 81mg Qday. Diabetes Mellitus: last HgbA1c 6.7 on 5/19/17, much improved from previous HgbA1c 10.1 on 05/26/15 - hold patient's metformin - Continue patient's glipizide - monitor accu-checks, cover with low dose SSI. Blood glucose well controlled. Tobacco Use: smokes 3-4 cigarettes daily - counseled on cessation - nicotine patch prn Asthma, Possible COPD with +tobacco use: chronic, not in exacerbation -continue patient's albuterol inhaler prn -incentive spirometry -encourage ambulation -mucinex bid prn Full code. Boris Castro DO May 27, 2017 10:08
[2017-05-27] MEDS: SODIUM CHLORIDE 0.9% FLUSH 10 ML FLUSH IV FLUSH PRN ×2 (10:32→17:46)
[2017-05-27 12:00] VITALS: BP 115/77; PULSE 73; RESP 19; TEMP 97.8; O2SAT 96
--- NOTE | 2017-05-27 15:32 | PD.CAR.PN ---
CVT Progress Note Subjective/Hospital Course: Patient known to me from previous admissions and encounters. 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 Patient has recurrent diverticulitis with 3 episodes at which time patient had contained perforation into the anterior/lateral abdominal wall Each time patient was treated in the hospital with IV antibiotics and then discharged home on by mouth antibiotics. There was a high suspicion for a neoplasm at previous admissions from the get-go , but patient always fails to follow up and is very non-compliant with care. He didn't follow up with me or with GI for endoscopy. Each time patient was told to come back in follow-up to have colonoscopy followed by sigmoid resection and each time patient fell out of the follow-up. Patient states that he doesn't want surgical resection because he would end up with a colostomy. Of course if he did colostomy, it is reversible. At this point I believe the best way to deal with this is to keep patient Hospital treated with antibiotics have a colonoscopy while in the hospital and then proceed with sigmoid resection and primary anastomosis I am highly suspicious of a neoplasm and therefore, I will try to convince the patient that the surgery is the best option. At this point, patient should remain in the hospital on intravenous antibiotics for about 10 days and then have a colonoscopy and while he is still clean and prepped I will go ahead and resect the sigmoid. Will follow Beverley Ross 05/23/17 Abdomen is soft with active bowel sounds Somewhat tender in the right mid and lower abdomen consistent with previous contained perforation of sigmoid. CEA level very high which is certainly highly suspicious of a colonic neoplasm. I have spoken to the patient repeatedly in the past about the need of colon resection but as stated above patient falls out of the follow-up each time and once he did follow-up he refused colon resection if there was he was a chance of having a colostomy At this point we should keep the patient in the hospital, go ahead with colonoscopy in about a week and then proceed with colon resection all patient is still prepped Depending on the findings further therapy will be tailored I discussed this with patient and he agrees with the plan 05/24/17 Abdomen soft active bowel sounds mildly tender in the right midabdomen no rebound or guarding CEA level 350, indicating probable adenocarcinoma Patient will have colonoscopy next week and this should be followed by sigmoid resection and primary anastomosis 05/26/17 Abdomen soft with active bowel sounds Now that antibiotics have taken effect inflammatory phlegmon is shrinking down and patient has developing a collection in the right mid lateral abdomen wall This is happen the last time and at that time patient was offered sigmoid resection which she refused There is no question my mind that cancer is a component of this lesion Patient will need a CT-guided or ultrasound guided placement of a pigtail catheter into this abscess cavity Patient will be then colonoscoped by the end of next week and then of surgery there after Theoretically patient could be discharged and go home on by mouth antibiotics but again he will never come back to things get bad again so it's probably better to just keep him in the hospital at this point 05/27/17 No change in current status Patient successful placement of a pigtail catheter under CT guidance by Dr. Ravin Garcia Abdomen soft with active bowel sounds Patient has been again vacillating little bit about whether he wants surgery but I have explained to him now in detail that he does have colon cancer which is perforating and the anterior abdominal wall and this is been suspected all along hence the continuous urging of the patient to have surgery I also explained to the patient there is a chance that he may need a temporary colostomy which is reversible but either way surgeries a mandatory and lifesaving measure Patient understands and will proceed with surgery early next week after colonoscopy Will give patient GoLYTELY tomorrow to clean out and hopefully we can do colonoscopy Monday to proceed with colon resection Monday Objective: Vital Signs Date Time Temp Pulse Resp B/P Pulse Ox O2 Delivery O2 Flow Rate FiO2 05/27/17 13:59 18 05/27/17 13:18 18 05/27/17 12:00 97.8 73 19 115/77 96 05/27/17 09:25 18 05/27/17 08:00 96.9 66 20 105/63 95 05/27/17 00:00 97.3 103 20 124/77 96 05/26/17 20:00 98.4 101 20 120/70 94 05/26/17 16:00 97.7 79 19 121/76 93 Result Diagram: 05/23/17 0604 05/23/17 0604 Maximino Pierre MD May 27, 2017 15:32
[2017-05-27 16:00] VITALS: BP 138/71; PULSE 70; RESP 19; TEMP 97.8; O2SAT 96
[2017-05-27 20:00] VITALS: BP 130/77; PULSE 77; RESP 20; TEMP 96; O2SAT 99
--- NOTE | 2017-05-27 21:22 | HHI.GIFU ---
Subjective Remarks Comfortable in bed no new complaints Objective Vitals I&O Vital Signs Date Time Temp Pulse Resp B/P Pulse Ox O2 Delivery O2 Flow Rate FiO2 05/27/17 17:22 18 05/27/17 16:00 97.8 70 19 138/71 96 05/27/17 13:59 18 05/27/17 12:00 97.8 73 19 115/77 96 05/27/17 09:25 18 05/27/17 08:00 96.9 66 20 105/63 95 05/27/17 00:00 97.3 103 20 124/77 96 I/O 05/26/17 05/26/17 05/26/17 05/27/17 05/27/17 05/27/17 07:00 15:00 23:00 07:00 15:00 23:00 Intake Total 480 ml 940 ml 1040 ml 480 ml 1328 ml Output Total 700 ml 30 ml 995 ml Balance -220 ml 940 ml 1040 ml 450 ml 333 ml Intake Oral 480 ml 940 ml 720 ml 480 ml 1120 ml IV Total 320 ml 208 ml Output Urine Total 700 ml 960 ml Drainage Total 30 ml 35 ml # Voids 3 2 2 # Bowel Movements 0 1 0 1 Laboratory Date/Time Procedure Status Source Growth 05/26/17 16:15 Gram Stain - Final Resulted Abscess Abdomen 05/26/17 16:15 Wound Culture - Preliminary Resulted Abscess Abdomen Physical Exam HEENT: PERRL; normocephalic; atraumatic; no jaundice. CHEST: Rhonchi CARDIAC: could not auscultate over rhonchi and pt talking; pulse +2 and regular , radial ABDOMEN: asymmetric with bulge on right mid abdomen that is TTP and firm today , mild erythema; no hepatosplenomegaly; bowel sounds are present in all four quadrants. EXTREMITIES: No clubbing, cyanosis, or edema. SKIN: Normal; no rash; no jaundice. 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 Assessment and Plan Plan ASSESSMENT - abdominal pain - he says his pain has doubled although he fis less tender on exam. right side, similar to pain with prev episodes diverticulitis. hx diverticulitis with abscess. CT 05-22-17-> bowel wall thickenign descending colon and induration c/w inflammatory process, underlying neoplasm excluded, evidence prev abd wall surgery, hiatal hernia, small abscess present. GS consulted- abx, going for CT guided placement pigtail cath in abscess. colonoscopy and surgery next wk. CEA elevated 350.3. AFP 0.7, CA 19-9 14.9. - isolated elevated ALP - 152. - leukocytosis - trending down. WBC 13.7 on admission. julia laws PLAN - continue abx - colonoscopy next week prior to surgery - supportive care - further recommendations to follow Francisco Coelho MD May 27, 2017 21:22
[2017-05-28] VITALS: BP_SYST 104; BP_SYST 130; BP_DIAS 60; BP_DIAS 76; PULSE 68; PULSE 78; RESP 18; RESP 19; TEMP 96.2; TEMP 98.3; O2SAT 94; O2SAT 96
[2017-05-28] MEDS: metroNIDAZOLE 500 MG INJ 100 ML IV SCH ×4 (00:16→22:54)
[2017-05-28] MEDS: HYDROmorphone HCL PF 1 MG/ML VIAL IV PUSH PRN ×7 (00:21→21:29)
[2017-05-28] MEDS: CIPROFLOXACIN 400 MG PREMIX 200 ML IV SCH ×2 (01:16→14:34)
[2017-05-28] MEDS: oxyCODONE/ACETAMINOPHEN 10 MG/325 MG TAB PO PRN ×6 (01:16→22:55)
[2017-05-28] MEDS: INSULIN ASPART SUPPLEMENTAL SCALE SQ SCH ×4 (05:26→21:00)
[2017-05-28 08:00] VITALS: BP 134/81; PULSE 80; RESP 20; TEMP 98.8; O2SAT 98
[2017-05-28] MEDS: DOCUSATE SODIUM 50 MG/SENNA 8.6 MG TAB PO SCH ×2 (08:30→21:00)
[2017-05-28] MEDS: ASPIRIN 325 MG TAB PO SCH (08:30)
[2017-05-28] MEDS: PANTOPRAZOLE SOD 40 MG DELAYED RELEASE TAB PO SCH (08:31)
[2017-05-28] MEDS: LISINOPRIL 20 MG TAB PO SCH ×2 (08:31→21:29)
[2017-05-28] MEDS: PRAVASTATIN SOD 40 MG TAB PO SCH (08:31)
[2017-05-28] MEDS: glipiZIDE 5 MG TAB PO SCH (08:34)
[2017-05-28] MEDS: SODIUM CHLORIDE 0.9% FLUSH 10 ML FLUSH IV FLUSH SCH ×2 (08:35→21:33)
--- NOTE | 2017-05-28 11:52 | PD.CAR.PN ---
CVT Progress Note Subjective/Hospital Course: Patient known to me from previous admissions and encounters. 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 Patient has recurrent diverticulitis with 3 episodes at which time patient had contained perforation into the anterior/lateral abdominal wall Each time patient was treated in the hospital with IV antibiotics and then discharged home on by mouth antibiotics. There was a high suspicion for a neoplasm at previous admissions from the get-go , but patient always fails to follow up and is very non-compliant with care. He didn't follow up with me or with GI for endoscopy. Each time patient was told to come back in follow-up to have colonoscopy followed by sigmoid resection and each time patient fell out of the follow-up. Patient states that he doesn't want surgical resection because he would end up with a colostomy. Of course if he did colostomy, it is reversible. At this point I believe the best way to deal with this is to keep patient Hospital treated with antibiotics have a colonoscopy while in the hospital and then proceed with sigmoid resection and primary anastomosis I am highly suspicious of a neoplasm and therefore, I will try to convince the patient that the surgery is the best option. At this point, patient should remain in the hospital on intravenous antibiotics for about 10 days and then have a colonoscopy and while he is still clean and prepped I will go ahead and resect the sigmoid. Will follow Beverley Ross 05/23/17 Abdomen is soft with active bowel sounds Somewhat tender in the right mid and lower abdomen consistent with previous contained perforation of sigmoid. CEA level very high which is certainly highly suspicious of a colonic neoplasm. I have spoken to the patient repeatedly in the past about the need of colon resection but as stated above patient falls out of the follow-up each time and once he did follow-up he refused colon resection if there was he was a chance of having a colostomy At this point we should keep the patient in the hospital, go ahead with colonoscopy in about a week and then proceed with colon resection all patient is still prepped Depending on the findings further therapy will be tailored I discussed this with patient and he agrees with the plan 05/24/17 Abdomen soft active bowel sounds mildly tender in the right midabdomen no rebound or guarding CEA level 350, indicating probable adenocarcinoma Patient will have colonoscopy next week and this should be followed by sigmoid resection and primary anastomosis 05/26/17 Abdomen soft with active bowel sounds Now that antibiotics have taken effect inflammatory phlegmon is shrinking down and patient has developing a collection in the right mid lateral abdomen wall This is happen the last time and at that time patient was offered sigmoid resection which she refused There is no question my mind that cancer is a component of this lesion Patient will need a CT-guided or ultrasound guided placement of a pigtail catheter into this abscess cavity Patient will be then colonoscoped by the end of next week and then of surgery there after Theoretically patient could be discharged and go home on by mouth antibiotics but again he will never come back to things get bad again so it's probably better to just keep him in the hospital at this point 05/27/17 No change in current status Patient successful placement of a pigtail catheter under CT guidance by Dr. Ravin Garcia Abdomen soft with active bowel sounds Patient has been again vacillating little bit about whether he wants surgery but I have explained to him now in detail that he does have colon cancer which is perforating and the anterior abdominal wall and this is been suspected all along hence the continuous urging of the patient to have surgery I also explained to the patient there is a chance that he may need a temporary colostomy which is reversible but either way surgeries a mandatory and lifesaving measure Patient understands and will proceed with surgery early next week after colonoscopy Will give patient GoLYTELY tomorrow to clean out and hopefully we can do colonoscopy Monday to proceed with colon resection Monday05/28/17 Abdomen soft active bowel sounds We'll place patient on clear liquids and then give GoLYTELY today Hopefully patient can get colonoscopy tomorrow and depending on the findings the surgery will be scheduled for Monday Depending on the intraoperative findings of perforating cancer and depending on the degree of inflammation this patient may need temporary colostomy and I've explained this to patient in detail Objective: Vital Signs Date Time Temp Pulse Resp B/P Pulse Ox O2 Delivery O2 Flow Rate FiO2 05/28/17 08:00 98.8 80 20 134/81 98 05/28/17 00:00 98.3 68 18 104/60 94 05/27/17 20:00 96.0 77 20 130/77 99 05/27/17 17:22 18 05/27/17 16:00 97.8 70 19 138/71 96 05/27/17 13:59 18 05/27/17 12:00 97.8 73 19 115/77 96 Maximino Pierre MD May 28, 2017 11:51
[2017-05-28 12:00] VITALS: BP 139/59; PULSE 79; RESP 20; TEMP 98.7; O2SAT 97
[2017-05-28] MEDS ORDERED: PEG (High)/E-LYTE SOLN 4000 ML BTL PO ONE (13:00)
--- NOTE | 2017-05-28 15:29 | HHI.GIFU ---
Subjective Remarks Sitting up in chair, drink bowel prep for colonoscopy. Reports RLQ abdominal pain. No nausea or vomiting. Having normal formed stools. (April Duran) Objective Vitals I&O Vital Signs Date Time Temp Pulse Resp B/P Pulse Ox O2 Delivery O2 Flow Rate FiO2 05/28/17 12:00 98.7 79 20 139/59 97 05/28/17 08:00 98.8 80 20 134/81 98 05/28/17 00:00 98.3 68 18 104/60 94 05/27/17 20:00 96.0 77 20 130/77 99 05/27/17 17:22 18 05/27/17 16:00 97.8 70 19 138/71 96 I/O 05/27/17 05/27/17 05/27/17 05/28/17 05/28/17 05/28/17 07:00 15:00 23:00 07:00 15:00 23:00 Intake Total 480 ml 1328 ml 240 ml 780 ml 1100 ml Output Total 30 ml 995 ml 0 ml 20 ml 1000 ml Balance 450 ml 333 ml 240 ml 760 ml 100 ml Intake Oral 480 ml 1120 ml 240 ml 480 ml 1000 ml IV Total 208 ml 300 ml 100 ml Output Urine Total 960 ml 1000 ml Drainage Total 30 ml 35 ml 0 ml 20 ml # Voids 2 2 2 # Bowel Movements 0 1 0 1 0 Laboratory Date/Time Procedure Status Source Growth 05/26/17 16:15 Gram Stain - Final Complete Abscess Abdomen 05/26/17 16:15 Wound Culture - Final Complete Mixed Anaerobes Imaging Last Impressions Abdomen/Pelvis CT 05/22/17 1022 Signed Impressions: Service Date/Time: Monday, May 22, 2017 12:28 - CONCLUSION: 1. Bowel wall thickening descending colon and induration consistent with an inflammatory process.. Underlying neoplasm excluded. 2. Evidence for previous abdominal wall surgery 3. Hiatal hernia. 4. Findings have been discussed with the referring physician. Jose Garcia MD FACR Physical Exam HEENT: PERRLA; normocephalic; atraumatic; no jaundice. CHEST: Rhonchi CARDIAC: RRR ABDOMEN: Asymmetric with bulge on right mid abdomen that is TTP and firm today , mild erythema; no hepatosplenomegaly; bowel sounds are present x 4. EXTREMITIES: No clubbing, cyanosis, or edema. SKIN: Normal; no rash; no jaundice. 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 History of diverticulitis with abscess. CT 05-22-17-> bowel wall thickening in descending colon and induration c/w inflammatory process, underlying neoplasm excluded, evidence prev abd wall surgery, hiatal hernia, small abscess present. GS consulted- abx, going for CT guided placement pigtail cath in abscess. Colonoscopy and surgery next wk. CEA elevated 350.3. AFP 0.7 , CA 19-9 14.9. - Isolated elevated ALP - 152. - Leukocytosis, trending down. WBC 13.7 on admission. On FlagylSorayaro. PLAN - Colonoscopy Monday - Obtain consents - Bowel prep today - Clear liquid diet today - NPO after midnight tonight - Continue abx - Supportive care - Further recommendations to follow based on results of above Patient seen and examined by Dr. Coelho and myself and this note is written on his behalf. (April Duran) Physician Comments Patient seen and examined Agree with above Continue with current supportive care Monitor labs Colonoscopy tomorrow (Francisco Coelho MD) April Duran May 28, 2017 15:29 Francisco Coelho MD May 28, 2017 21:10
[2017-05-28 16:00] VITALS: BP 119/71; PULSE 75; RESP 19; TEMP 98.7; O2SAT 97
--- NOTE | 2017-05-28 16:03 | HHI.PR ---
Subjective Remarks Follow up for diverticulitis, abdominal abscess. Patient is doing well. No acute concerns. Denies any fever, chills. Abdominal pain is well controlled. Objective Vitals Vital Signs Date Time Temp Pulse Resp B/P Pulse Ox O2 Delivery O2 Flow Rate FiO2 05/28/17 12:00 98.7 79 20 139/59 97 05/28/17 08:00 98.8 80 20 134/81 98 05/28/17 00:00 98.3 68 18 104/60 94 05/27/17 20:00 96.0 77 20 130/77 99 05/27/17 17:22 18 I/O 05/27/17 05/27/17 05/27/17 05/28/17 05/28/17 05/28/17 07:00 15:00 23:00 07:00 15:00 23:00 Intake Total 480 ml 1328 ml 240 ml 780 ml 1100 ml Output Total 30 ml 995 ml 0 ml 20 ml 1000 ml Balance 450 ml 333 ml 240 ml 760 ml 100 ml Intake Oral 480 ml 1120 ml 240 ml 480 ml 1000 ml IV Total 208 ml 300 ml 100 ml Output Urine Total 960 ml 1000 ml Drainage Total 30 ml 35 ml 0 ml 20 ml # Voids 2 2 2 # Bowel Movements 0 1 0 1 0 Imaging Last Impressions Abdomen/Pelvis CT 05/22/17 1022 Signed Impressions: Service Date/Time: Monday, May 22, 2017 12:28 - CONCLUSION: 1. Bowel wall thickening descending colon and induration consistent with an inflammatory process.. Underlying neoplasm excluded. 2. Evidence for previous abdominal wall surgery 3. Hiatal hernia. 4. Findings have been discussed with the referring physician. Jose Garcia MD FACR Objective Remarks GENERAL: Alert, oriented 3, NAD. SKIN: Warm and dry. HEAD: Normocephalic. EYES: No scleral icterus. No injection or drainage. NECK: Supple, trachea midline. No JVD or lymphadenopathy. CARDIOVASCULAR: Regular rate and rhythm without murmurs, gallops, or rubs. RESPIRATORY: Breath sounds equal bilaterally. No accessory muscle use. GASTROINTESTINAL: Abdomen soft, nondistended. Right side of the abdomen tender to palpation. There is a bulge from the right side of the abdomen. MUSCULOSKELETAL: No cyanosis, or edema. BACK: Nontender without obvious deformity. No CVA tenderness. Procedures Pigtail catheter drain placement by IR 05/26/2017 A/P Problem List: (1) Abdominal wall abscess ICD Code: L02.211 Status: Acute (2) Acute diverticulitis ICD Code: K57.92 Status: Acute (3) Colonic diverticular abscess ICD Code: K57.20 Status: Acute Assessment and Plan Mr. Mendez is a 57-year-old male with history of situs inversus, diverticulitis , right abdominal wall abscess s/p drain placement/removal, HTN, HLD, hiatal hernia, multiple abdominal hernia repairs with mesh, GERD, presents with a four- day history of abdominal pain. Acute Diverticulitis with Sepsis: meets sepsis criteria with +leukocytosis WBC 13.7K and tachycardia HR 94, with source diverticulitis vs abscess. Tmax 100.4. Lactic acid 0.7. CT abd/pelvis images reviewed, shows marked induration and bowel wall thickening in the descending colon; induration in abdominal wall with small abscess present; direct visualization suggested to exclude underlying neoplasm. - blood cultures with NGTD - Continue antibiotics with IV Cipro/Flagyl. Discussed with Dr. Boston on 05/24/2017 who recommended continuation of IV abx. - Continue PO protonix. - advanced diet, patient tolerating well - tumor markers ordered for concern for neoplasm, CEA markedly elevated at 350; AFP and CA 19-9 wnl. - Consulted general surgeon Dr. Ross, recommends treatment with IV abx x7- 10days in hospital, then colonoscopy by GI, then plans for resection - Continue Acetaminophen for Pain 1-3, Percocet for pain 4-7 and IV Dilaudid 1mg Q3hrs for Pain 8-10 - All PRN. - Likely Colonoscopy hopefully tomorrow (Monday05/29/2017) and then surgical interventions. Abdominal Wall Abscess: seen on CT as above. Patient has been evaluated by Dr. Ross in the past, discussed surgical intervention however patient declined at that time; now agrees. - Dr. Pierre following, plans for surgical intervention after treatment with IV antibiotics and colonoscopy by GI Hypertension/Hyperlipidemia: chronic, stable - continue patient's lisinopril 20mg BID and Pravastatin 40mg Qday. - continue Aspirin 81mg Qday. Diabetes Mellitus: last HgbA1c 6.7 on 03/17/17, much improved from previous HgbA1c 10.1 on 05/26/15 - hold patient's metformin - Continue patient's glipizide - monitor accu-checks, cover with low dose SSI. Blood glucose well controlled. Tobacco Use: smokes 3-4 cigarettes daily - counseled on cessation - nicotine patch prn Asthma, Possible COPD with +tobacco use: chronic, not in exacerbation -continue patient's albuterol inhaler prn -incentive spirometry -encourage ambulation -mucinex bid prn Full code. Boris Castro DO May 28, 2017 4:03 pm
[2017-05-28 20:00] VITALS: BP 138/82; PULSE 76; RESP 18; TEMP 97.7; O2SAT 96
[2017-05-29] VITALS: BP 120/73; PULSE 65; RESP 18; TEMP 97; O2SAT 95
[2017-05-29] MEDS: HYDROmorphone HCL PF 1 MG/ML VIAL IV PUSH PRN ×6 (00:39→22:33)
[2017-05-29] MEDS ORDERED: LACTATED RINGER'S 1000 ML IV PRN (02:00)
[2017-05-29] MEDS: oxyCODONE/ACETAMINOPHEN 10 MG/325 MG TAB PO PRN ×5 (02:57→22:33)
[2017-05-29] MEDS: CIPROFLOXACIN 400 MG PREMIX 200 ML IV SCH ×2 (03:00→14:19)
[2017-05-29] MEDS: INSULIN ASPART SUPPLEMENTAL SCALE SQ SCH ×4 (05:02→19:36)
[2017-05-29 08:00] VITALS: BP 112/64; PULSE 62; RESP 16; TEMP 95.7; O2SAT 93
[2017-05-29] MEDS: DOCUSATE SODIUM 50 MG/SENNA 8.6 MG TAB PO SCH ×2 (08:36→20:08)
[2017-05-29] MEDS: PRAVASTATIN SOD 40 MG TAB PO SCH (08:36)
[2017-05-29] MEDS: ASPIRIN 325 MG TAB PO SCH (08:36)
[2017-05-29] MEDS: PANTOPRAZOLE SOD 40 MG DELAYED RELEASE TAB PO SCH (08:36)
[2017-05-29] MEDS: LISINOPRIL 20 MG TAB PO SCH ×2 (08:36→20:09)
[2017-05-29] MEDS: SODIUM CHLORIDE 0.9% FLUSH 10 ML FLUSH IV FLUSH SCH ×2 (08:37→20:09)
[2017-05-29] MEDS: glipiZIDE 5 MG TAB PO SCH (08:37)
[2017-05-29] MEDS: metroNIDAZOLE 500 MG INJ 100 ML IV SCH ×2 (08:38→14:20)
[2017-05-29 09:58] VITALS: BP 112/64; PULSE 62; RESP 16; TEMP 95.7; O2SAT 93
[2017-05-29] MEDS ORDERED: PROPOFOL 200 MG/20 ML AMP IV ONE (13:12)
--- NOTE | 2017-05-29 13:20 | GIPROC ---
[facility] [address] [facility]. [facility], [id number] COLONOSCOPY PROCEDURE REPORT EXAM DATE: 05/29/2017 PATIENT NAME: Alexx Mendez MR #: [id number] BIRTHDATE: 1960 ENDOSCOPIST: Chiqui Funez MD ORDER #: [id number] RETAIL M[employer]GAGE B[employer]ER: Jasper Garces and Kathay Arriaga STATUS: inpatient INDICATIONS: The patient is a 57 yr old male here for a colonoscopy due to abnormal ct, elevated cea PROCEDURE PERFORMED: Colonoscopy with biopsy MEDICATIONS: None and Per Anesthesia. PREP QUALITY: poor PREP TYPE:Other: ESTIMATED BLOOD LOSS: None CONSENT: The patient understands the risks and benefits of the procedure and understands that these risks include, but are not limited to: sedation, allergic reaction, infection, perforation and/or bleeding. Alternative means of evaluation and treatment include, among others: physical exam, x-rays, and/or surgical intervention. The patient elects to proceed with this endoscopic procedure. medical equipment was checked for proper function. Hand hygiene and appropriate measures for infection prevention was taken. After the risks, benefits and alternatives of the procedure were thoroughly explained, Informed consent was verified, confirmed and timeout was successfully executed by the treatment team. A digital exam revealed external hemorrhoids The Pentax [id number] endoscope was introduced through the anus and advanced to the cecum, which was identified by both the appendix and ileocecal valve. The instrument was then slowly withdrawn as the colon was fully examined. COLON FINDINGS: Poor prep diverticulosis sigmoid,descending inflammatory mass in descending , almost obstructing the lumen, very friable, canoot r/o malignancy-biopsies. Retroflexed views revealed internal hemorrhoids and Retroflexed views revealed small internal hemorrhoids The scope was then completely withdrawn from the patient and the procedure terminated. PROCEDURE WITHDRAWAL TIME:6minutes ADVERSE EVENTS: There were no complications. IMPRESSIONS: 1. Poor prep diverticulosis sigmoid,descending inflammatory mass in descending , almost obstructing the lumen, very friable, canoot r/o malignancy-biopsies 2. Retroflexed views revealed internal hemorrhoids 3. Retroflexed views revealed small internal hemorrhoids 4. Revealed external hemorrhoids RECOMMENDATIONS: 1. Await biopsy results. Biopsy results will not be ready for 7-10 days. If you don't hear from us in two weeks, call our office for results. 2. Soft diet RECALL: Colonoscopy, pending biopsy results Chiqui Funez MD eSigned: Chiqui Funez MD 05/29/2017 1:20 PM cc:
--- NOTE | 2017-05-29 15:10 | PD.CAR.PN ---
CVT Progress Note Subjective/Hospital Course: Patient known to me from previous admissions and encounters. 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 Patient has recurrent diverticulitis with 3 episodes at which time patient had contained perforation into the anterior/lateral abdominal wall Each time patient was treated in the hospital with IV antibiotics and then discharged home on by mouth antibiotics. There was a high suspicion for a neoplasm at previous admissions from the get-go , but patient always fails to follow up and is very non-compliant with care. He didn't follow up with me or with GI for endoscopy. Each time patient was told to come back in follow-up to have colonoscopy followed by sigmoid resection and each time patient fell out of the follow-up. Patient states that he doesn't want surgical resection because he would end up with a colostomy. Of course if he did colostomy, it is reversible. At this point I believe the best way to deal with this is to keep patient Hospital treated with antibiotics have a colonoscopy while in the hospital and then proceed with sigmoid resection and primary anastomosis I am highly suspicious of a neoplasm and therefore, I will try to convince the patient that the surgery is the best option. At this point, patient should remain in the hospital on intravenous antibiotics for about 10 days and then have a colonoscopy and while he is still clean and prepped I will go ahead and resect the sigmoid. Will follow Beverley Ross 05/23/17 Abdomen is soft with active bowel sounds Somewhat tender in the right mid and lower abdomen consistent with previous contained perforation of sigmoid. CEA level very high which is certainly highly suspicious of a colonic neoplasm. I have spoken to the patient repeatedly in the past about the need of colon resection but as stated above patient falls out of the follow-up each time and once he did follow-up he refused colon resection if there was he was a chance of having a colostomy At this point we should keep the patient in the hospital, go ahead with colonoscopy in about a week and then proceed with colon resection all patient is still prepped Depending on the findings further therapy will be tailored I discussed this with patient and he agrees with the plan 05/24/17 Abdomen soft active bowel sounds mildly tender in the right midabdomen no rebound or guarding CEA level 350, indicating probable adenocarcinoma Patient will have colonoscopy next week and this should be followed by sigmoid resection and primary anastomosis 05/26/17 Abdomen soft with active bowel sounds Now that antibiotics have taken effect inflammatory phlegmon is shrinking down and patient has developing a collection in the right mid lateral abdomen wall This is happen the last time and at that time patient was offered sigmoid resection which she refused There is no question my mind that cancer is a component of this lesion Patient will need a CT-guided or ultrasound guided placement of a pigtail catheter into this abscess cavity Patient will be then colonoscoped by the end of next week and then of surgery there after Theoretically patient could be discharged and go home on by mouth antibiotics but again he will never come back to things get bad again so it's probably better to just keep him in the hospital at this point 05/27/17 No change in current status Patient successful placement of a pigtail catheter under CT guidance by Dr. Ravin Garcia Abdomen soft with active bowel sounds Patient has been again vacillating little bit about whether he wants surgery but I have explained to him now in detail that he does have colon cancer which is perforating and the anterior abdominal wall and this is been suspected all along hence the continuous urging of the patient to have surgery I also explained to the patient there is a chance that he may need a temporary colostomy which is reversible but either way surgeries a mandatory and lifesaving measure Patient understands and will proceed with surgery early next week after colonoscopy Will give patient GoLYTELY tomorrow to clean out and hopefully we can do colonoscopy Monday to proceed with colon resection Monday05/28/17 Abdomen soft active bowel sounds We'll place patient on clear liquids and then give GoLYTELY today Hopefully patient can get colonoscopy tomorrow and depending on the findings the surgery will be scheduled for Monday Depending on the intraoperative findings of perforating cancer and depending on the degree of inflammation this patient may need temporary colostomy and I've explained this to patient in detail 05/29/17 Patient underwent colonoscopy today which reveals a mass partially obstructing the descending colon which is consistent with the carcinoma Patient has had surgery by Dr. Lau before IE hiatal hernia repair. This came to my attention today when patient told me that he would like Dr. Lau to the surgery I've discussed this with Dr. Lau and he will see the patient tomorrow Today have been approached by Kailey one of his nurses and was told that patient has been extremely rude disrespectful and cussing out nurses, so two nurses asked to be relieved and other nurses have been assigned to the patient. Apparently security was called because of patient's unruly behavior throughout the weekend I have addressed this with the patient and he started yelling at me as well Dr. Lau we'll see patient tomorrow and take over the surgical care Objective: Vital Signs Date Time Temp Pulse Resp B/P Pulse Ox O2 Delivery O2 Flow Rate FiO2 05/29/17 13:40 69 18 116/84 98 05/29/17 13:29 74 18 97/88 95 05/29/17 13:19 97.6 79 18 112/67 92 05/29/17 09:58 95.7 62 16 112/64 93 05/29/17 08:00 95.7 62 16 112/64 93 05/29/17 00:00 97.0 65 18 120/73 95 05/28/17 20:00 97.7 76 18 138/82 96 05/28/17 16:00 98.7 75 19 119/71 97 05/28/17 16:00 98.7 75 19 119/71 97 Maximino Pierre MD May 29, 2017 15:10
[2017-05-29 16:00] VITALS: BP 140/92; PULSE 92; RESP 18; TEMP 95.1; O2SAT 96
[2017-05-29 20:00] VITALS: BP 112/74; PULSE 89; RESP 18; TEMP 96.5; O2SAT 95
--- NOTE | 2017-05-29 22:32 | HHI.PR ---
Addendum to Inpatient Note Additional Information Attempted to see patient. He was in GI lab. Reviewed chart. Will see patient in the morning. Boris Aguilera DO May 29, 2017 22:32
[2017-05-30] VITALS: BP 116/72; PULSE 70; RESP 18; TEMP 96.6; O2SAT 97
[2017-05-30] MEDS: metroNIDAZOLE 500 MG INJ 100 ML IV SCH ×3 (00:08→14:35)
[2017-05-30] MEDS: HYDROmorphone HCL PF 1 MG/ML VIAL IV PUSH PRN ×5 (01:27→20:20)
[2017-05-30] MEDS: oxyCODONE/ACETAMINOPHEN 10 MG/325 MG TAB PO PRN ×6 (02:36→22:49)
[2017-05-30] MEDS: CIPROFLOXACIN 400 MG PREMIX 200 ML IV SCH ×2 (02:36→14:34)
[2017-05-30 06:16] LABS: HEMATOCRIT 32.2 % (39.0-51.0); MEAN CELL VOLUME 69.1 FL (80.0-100.0); MEAN CORPUSCULAR HEMOGLOBIN 21.6 PG (27.0-34.0); MEAN CORPUSCULAR HGB CONC 31.2 % (32.0-36.0); PLATELET COUNT 433 TH/MM3 (150-450); RED BLOOD COUNT 4.66 MIL/MM3 (4.50-5.90); RED CELL DISTRIBUTION WIDTH 18.3 % (11.6-17.2); REVIEW FLAG FINAL; WHITE BLOOD COUNT 7.5 TH/MM3 (4.0-11.0)
[2017-05-30 06:32] LABS: BICARBONATE 25.8 MEQ/L (21.0-32.0); POTASSIUM 4.2 MEQ/L (3.5-5.1)
[2017-05-30] MEDS: INSULIN ASPART SUPPLEMENTAL SCALE SQ SCH ×4 (06:39→20:26)
[2017-05-30 08:00] VITALS: BP 126/75; PULSE 65; RESP 17; TEMP 96; O2SAT 96
[2017-05-30] MEDS: LISINOPRIL 20 MG TAB PO SCH ×2 (08:01→20:23)
[2017-05-30] MEDS: PRAVASTATIN SOD 40 MG TAB PO SCH (08:01)
[2017-05-30] MEDS: DOCUSATE SODIUM 50 MG/SENNA 8.6 MG TAB PO SCH ×2 (08:01→20:19)
[2017-05-30] MEDS: ASPIRIN 325 MG TAB PO SCH (08:01)
[2017-05-30] MEDS: glipiZIDE 5 MG TAB PO SCH (08:02)
[2017-05-30] MEDS: PANTOPRAZOLE SOD 40 MG DELAYED RELEASE TAB PO SCH (08:02)
[2017-05-30] MEDS: SODIUM CHLORIDE 0.9% FLUSH 10 ML FLUSH IV FLUSH SCH ×2 (08:03→20:24)
[2017-05-30 12:00] VITALS: BP 105/65; PULSE 63; RESP 17; TEMP 96.5; O2SAT 93
[2017-05-30] MEDS ORDERED: SOD PHOSPHATE/SOD BIPHOSPHATE (ADULT) ENEMA 133ML RECTAL ONE (14:15)
--- NOTE | 2017-05-30 15:34 | HHI.GIFU ---
Subjective Remarks Sitting on edge of bed. No n/v. + BM/Flatus. No bleeding. Right sided abdominal pain at drain insertion site. Going to OR tomorrow. (Radhika Khan) Objective Vitals I&O Vital Signs Date Time Temp Pulse Resp B/P Pulse Ox O2 Delivery O2 Flow Rate FiO2 05/30/17 12:00 96.5 63 17 105/65 93 05/30/17 08:00 96.0 65 17 126/75 96 05/30/17 00:00 96.6 70 18 116/72 97 05/29/17 20:10 18 05/29/17 20:00 96.5 89 18 112/74 95 05/29/17 16:00 95.1 92 18 140/92 96 I/O 05/29/17 05/29/17 05/29/17 05/30/17 05/30/17 05/30/17 06:59 14:59 22:59 06:59 14:59 22:59 Intake Total 660 ml 1020 ml 2001 ml Output Total 10 ml 10 ml Balance 650 ml 1020 ml 1991 ml Intake Oral 360 ml 720 ml 1800 ml IV Total 300 ml 100 ml 201 ml Other 200 ml Drainage Total 10 ml 10 ml # Voids 1 4 1 2 5 # Bowel Movements 2 3 Laboratory Laboratory Tests Test 05/30/17 05:49 White Blood Count 7.5 Red Blood Count 4.66 Hemoglobin 10.1 Hematocrit 32.2 Mean Corpuscular Volume 69.1 Mean Corpuscular Hemoglobin 21.6 Mean Corpuscular Hemoglobin 31.2 Concent Red Cell Distribution Width 18.3 Platelet Count 433 Mean Platelet Volume 7.0 Sodium Level 140 Potassium Level 4.2 Chloride Level 105 Carbon Dioxide Level 25.8 Anion Gap 9 Blood Urea Nitrogen 18 Creatinine 1.10 Estimat Glomerular Filtration 69 Rate Random Glucose 99 Calcium Level 8.7 Date/Time Procedure Status Source Growth 05/26/17 16:15 Gram Stain - Final Complete Abscess Abdomen 05/26/17 16:15 Wound Culture - Final Complete Mixed Anaerobes Imaging Last Impressions Abdomen/Pelvis CT 05/22/17 1022 Signed Impressions: Service Date/Time: Monday, May 22, 2017 12:28 - CONCLUSION: 1. Bowel wall thickening descending colon and induration consistent with an inflammatory process.. Underlying neoplasm excluded. 2. Evidence for previous abdominal wall surgery 3. Hiatal hernia. 4. Findings have been discussed with the referring physician. Jose Garcia MD FACR Physical Exam HEENT: Normocephalic; atraumatic; no jaundice. CHEST: Resp. even/unlabored. CARDIAC: RRR ABDOMEN: Abdomen mildly distended, soft, right sided tenderness; no hepatosplenomegaly; bowel sounds are present x 4. Drain on right side. EXTREMITIES: No clubbing, cyanosis, or edema. SKIN: Normal; no rash; no jaundice. 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 Elevated CEA 350.3. CT Scan abdomen and pelvis ()----> 1. Bowel wall thickening descending colon and induration consistent with an inflammatory process.. Underlying neoplasm excluded. 2. Evidence for previous abdominal wall surgery 3. Hiatal hernia. 4. Findings have been discussed with the referring physician. S/P Colonoscopy (05/30/17)---> 1. Poor prep, diverticulosis sigmoid,descending, inflammatory mass in descending , almost obstructing the lumen, very friable, cannot r/o malignancy- biopsies 2. Retroflexed views revealed internal hemorrhoids 3. Retroflexed views revealed small internal hemorrhoids 4. Revealed external hemorrhoids. Pathology pending. GS following, going to OR tomorrow. Ciprol/Flagyl - Abdominal pain, RLQ. History of diverticulitis with abscess. CT 05-22-17-> bowel wall thickening in descending colon and induration c/w inflammatory process, underlying neoplasm excluded, evidence prev abd wall surgery, hiatal hernia, small abscess present. S/P drainage catheter. Colonoscopy as above. Scheduled for surgery tomorrow. Cipro/Flagyl - Isolated elevated alkaline phosphatase. - Leukocytosis. Improved. 7.5. Cipro/Flagyl PLAN - Diet per GS - GS following, going to OR tomorrow - Cipro/Flagyl - Monitor labs - Await pathology from colonoscopy - Supportive care - Further recommendations to follow based on results of above - Patient seen and examined by Dr. Funez and myself and this note is written on her behalf. (Radhika Khan) Physician Comments seen, examined agree with above awaiting pathology report discussed with (Chiqui Funez MD) Radhika Khan May 30, 2017 15:34 Chiqui Funez MD May 30, 2017 15:37
[2017-05-30 16:00] VITALS: BP 112/64; PULSE 61; RESP 17; TEMP 95.8; O2SAT 95
--- NOTE | 2017-05-30 16:08 | PD.CONS ---
cc: Jigar Lau MD [facility] Service CONSULT NOTE FOR SURGICAL ATTENDING, DR. JIGAR LAU General Surgery Consult Requested By Dr. Pierre and Medical service Reason for Consult Diverticular abscess Primary Care Physician Courtney Evangelista MD History of Present Illness This is a 57-year-old male with a past medical history of hypertension, hyperlipidemia, hiatal hernia, GERD and abdominal hernia repair with mesh. The patient is well-known to the General Surgery service and has been operated on by Dr. Lau. The patient had a 4 day history of sharp abdominal pain rated a 8 out of 10 prior to admission. The patient was found to have a diverticulitis abscess. IR drain was placed. The patient has had several episodes of diverticular abscess treated with IR placed drain in the past. The patient is need of an operation during this admission. A General Surgery consultation has been requested. Review of Systems Constitutional: COMPLAINS OF: Change in appetite, DENIES: Fatigue, Weight loss Endocrine: DENIES: Polydipsia, Polyuria, Polyphagia Eyes: DENIES: Diplopia Ears, nose, mouth, throat: DENIES: Hearing loss Respiratory: DENIES: Cough Cardiovascular: DENIES: Chest pain, Palpitations Gastrointestinal: COMPLAINS OF: Abdominal pain, Nausea, DENIES: Vomiting Genitourinary: DENIES: Urgency Musculoskeletal: DENIES: Joint pain Integumentary: DENIES: Abnormal pigmentation Hematologic/lymphatic: DENIES: Bruising Immunologic/allergic: DENIES: Eczema Neurologic: DENIES: Headache, Localized weakness Psychiatric: DENIES: Mood changes, Depression, Hallucinations Past Family Social History Past Medical History Hypertension Hyperlipidemia Hiatal hernia GERD Past Surgical History Abdominal hernia repair with mesh IR placed drains for diverticular abscess Reported Medications Lisinopril Albuterol Metformin Lovastatin Aspirin Glipizide Allergies: Coded Allergies: No Known Allergies (Verified , 05/22/17) Active Ordered Medications Current Medications Medications (Trade) Dose Ordered Sig/[place] Route Start Time Stop Time Status Last Admin (NS Flush) 2 ml UNSCH PRN IV FLUSH 05/22/17 13:45 05/27/17 17:46 (NS Flush) 2 ml BID IV FLUSH 05/22/17 21:00 05/29/17 20:09 (Tylenol) 650 mg Q4H PRN PO 05/22/17 13:45 (Zofran Inj) 4 mg Q6H PRN IVP 05/22/17 13:45 05/22/17 19:09 (Narcan Inj) 0.4 mg UNSCH PRN IV 05/22/17 13:45 (Raven-Colace) 1 tab BID PO 05/22/17 21:00 05/30/17 08:01 (Milk Of Magnesia Liq) 30 ml Q12H PRN PO 05/22/17 13:45 05/25/17 20:17 (Senokot) 17.2 mg Q12H PRN PO 05/22/17 13:45 (Dulcolax Supp) 10 mg DAILY PRN RECTAL 05/22/17 13:45 Lactulose 30 ml 30 ml DAILY PRN PO 05/22/17 13:45 05/26/17 08:40 Ciprofloxacin/ Dextrose 200 ml @ 200 mls/hr Q12H IV 05/22/17 15:00 05/30/17 14:34 (Flagyl 500 Mg Inj) 100 ml @ 100 mls/hr Q8H IV 05/22/17 16:00 05/30/17 14:35 (Ventolin Hfa Inh) 1 puff Q4H PRN INH 05/22/17 15:00 (Prinivil) 20 mg BID PO 05/22/17 21:00 05/30/17 08:01 (Pravachol) 40 mg DAILY PO 05/23/17 09:00 05/30/17 08:01 (Habitrol 7 Mg Patch.24 Hr) 1 patch DAILY PRN T-DERMAL 05/22/17 15:00 (Mucinex Er) 600 mg BID PRN PO 05/22/17 15:15 (Glucotrol) 5 mg DAILY PO 05/23/17 10:00 05/30/17 08:02 (D50w (Vial) Inj) 50 ml UNSCH PRN IV 05/23/17 10:00 (Glucagon Inj) 1 mg UNSCH PRN OTHER 05/23/17 10:00 (Dilaudid Pf Inj) 1 mg Q3H PRN IV PUSH 05/24/17 13:32 05/30/17 15:49 (Tylenol) 500 mg Q6H PRN PO 05/24/17 11:45 (Aspirin) 81 mg DAILY PO 05/25/17 09:00 05/30/17 08:01 (Protonix) 40 mg DAILY PO 05/25/17 09:00 05/30/17 08:02 Oxycodone/ Acetaminophen 1 tab 1 tab Q4H PRN PO 05/25/17 19:15 05/30/17 14:34 (Lr 1000 ml Inj) 1,000 ml @ 30 mls/hr Q24H PRN IV 05/29/17 02:00 06/01/17 01:59 (Citroma Liq) 300 ml ONCE ONCE PO 05/30/17 15:45 05/30/17 15:46 UNV Family History Motherlung cancer Fathermyocardial infarction and cardiac disease Sisterbreast cancer Cystoscopydiabetes mellitus Nephew- colon cancer Social History Positive tobacco use-1-2 cigarettes daily EtOHsocial only; not daily And denies illicit drug use Physical Exam Vital Signs Vital Signs Date Time Temp Pulse Resp B/P Pulse Ox O2 Delivery O2 Flow Rate FiO2 05/30/17 12:00 96.5 63 17 105/65 93 05/30/17 08:00 96.0 65 17 126/75 96 05/30/17 00:00 96.6 70 18 116/72 97 05/29/17 20:10 18 05/29/17 20:00 96.5 89 18 112/74 95 05/29/17 16:00 95.1 92 18 140/92 96 Physical Exam GENERAL: A 57-year-old male resting in bed in no acute distress. SKIN: Warm and dry. HEAD: Atraumatic. Normocephalic. EYES: Pupils equal and round. No scleral icterus. No injection or drainage. ENT: No nasal bleeding or discharge. Mucous membranes pink and moist. NECK: Trachea midline. CARDIOVASCULAR: Regular rate and rhythm. RESPIRATORY: No accessory muscle use. Clear to auscultation. Breath sounds equal bilaterally. GASTROINTESTINAL: Abdomen obese; soft; nontender to palpation; nondistended; IR placed drain with minimal output. Well-healed midline incision. MUSCULOSKELETAL: Extremities without clubbing, cyanosis, or edema. No obvious deformities. NEUROLOGICAL: Awake and alert. No obvious cranial nerve deficits. Motor grossly within normal limits. Five out of 5 muscle strength in the arms and legs. Normal speech. PSYCHIATRIC: Appropriate mood and affect; insight and judgment normal. Laboratory Laboratory Tests Test 05/30/17 05:49 White Blood Count 7.5 Red Blood Count 4.66 Hemoglobin 10.1 Hematocrit 32.2 Mean Corpuscular Volume 69.1 Mean Corpuscular Hemoglobin 21.6 Mean Corpuscular Hemoglobin 31.2 Concent Red Cell Distribution Width 18.3 Platelet Count 433 Mean Platelet Volume 7.0 Sodium Level 140 Potassium Level 4.2 Chloride Level 105 Carbon Dioxide Level 25.8 Anion Gap 9 Blood Urea Nitrogen 18 Creatinine 1.10 Estimat Glomerular Filtration 69 Rate Random Glucose 99 Calcium Level 8.7 Date/Time Procedure Status Source Growth 05/26/17 16:15 Gram Stain - Final Complete Abscess Abdomen 05/26/17 16:15 Wound Culture - Final Complete Mixed Anaerobes Result Diagram: 05/30/17 0549 05/30/17 0549 Imaging Last Impressions Retroperitoneal Abscess Drainage 05/26/17 0000 Signed Impressions: Service Date/Time: Friday, May 26, 2017 15:56 - CONCLUSION: Uncomplicated CT guided drainage. The fluid was sent for stat Gram stain and culture. Jose Garcia MD FACR Abdomen/Pelvis CT 05/22/17 1022 Signed Impressions: Service Date/Time: Monday, May 22, 2017 12:28 - CONCLUSION: 1. Bowel wall thickening descending colon and induration consistent with an inflammatory process.. Underlying neoplasm excluded. 2. Evidence for previous abdominal wall surgery 3. Hiatal hernia. 4. Findings have been discussed with the referring physician. Jose Garcia MD FACR Assessment and Plan Problem List: (1) Situs inversus (2) Dextrocardia (3) Abdominal wall abscess (4) Colonic diverticular abscess (5) Acute diverticulitis (6) Diverticulitis (7) Chronic airway obstruction (8) Diabetes mellitus (9) Obesity (10) Hepatitis C (11) History of incisional hernia repair (12) History of Margarita fundoplication (13) Sepsis Assessment and Plan 57-year-old male with several episodes of diverticular abscess; now in need of surgical intervention -Plan for laparoscopic possible open ascending colon resection and possible colostomy placement. -Enema 2 -Mag citrate -Clear liquids; nothing by mouth after midnight -Obtain consents -Plan for OR tomorrow -Thank you for this consult Code Status full Discussed Condition With Dr. Sid Mendez Attending Statement CONSULTATION NOTE FOR SURGICAL ATTENDING, DR. JIGAR LAU Patient seen and examined Patient known to me per previous surgery years ago when I did a Margarita fundoplication in addition repaired an incisional hernia Patient known to have situs inversus. Events reviewed reviewed with Dr. Harman Reviewed colonoscopy with the liquor establishment manager Dr. Funez Patient has elevated CEA Will plan attempted laparoscopic sigmoid resection possible open I told the patient there is a chance he may end up with a temporary colostomy. Because of his inverted organs his surgery will be modified I agree with above assessment and plan. The exam, history, and the medical decision-making described in the above note were completed with the assistance of the mid-level provider. I reviewed and agree with the findings presented. I attest that I had a [id number] encounter with the patient on the same day, and personally performed and documented my assessment and findings in the medical record. The following services were provided during this hospital visit: Chart data review, vital sign assessments/reviewing monitor data Review of consultations notes if present. Medication orders/review and/or management Ordering and/or reviewing lab tests Ordering and/or interpreting/reviewing x-rays and/or diagnostic studies Care of the patient and discussion of the patient with the care team Documentation time To help prompt me to consider important information that might be impacting today's encounter and assessment, information from prior notes written by myself or my colleagues may have been "brought forward/copy and pasted" into today's note. Problem Qualifiers (1) Diverticulitis: (2) Chronic airway obstruction: Qualified Code: J41.0 - Simple chronic bronchitis (3) Diabetes mellitus: (4) Obesity: (5) Hepatitis C: Qualified Code: B18.2 - Chronic hepatitis C without hepatic coma Albina Lorenz May 30, 2017 16:08 Jigar Lau MD May 31, 2017 09:05
[2017-05-30] MEDS ORDERED: MAGNESIUM CITRATE SOLN 300 ML BTL PO ONE (16:15)
--- NOTE | 2017-05-30 17:04 | HHI.PR ---
Subjective Remarks Follow up for diverticulitis, abdominal abscess. Patient is doing well. Feels comfortable, pain well managed. He is ambulating very well. No fever, chills. Objective Vitals Vital Signs Date Time Temp Pulse Resp B/P Pulse Ox O2 Delivery O2 Flow Rate FiO2 05/30/17 16:00 95.8 61 17 112/64 95 05/30/17 12:00 96.5 63 17 105/65 93 05/30/17 08:00 96.0 65 17 126/75 96 05/30/17 00:00 96.6 70 18 116/72 97 05/29/17 20:10 18 05/29/17 20:00 96.5 89 18 112/74 95 I/O 05/29/17 05/29/17 05/29/17 05/30/17 05/30/17 05/30/17 07:00 15:00 23:00 07:00 15:00 23:00 Intake Total 660 ml 1020 ml 2001 ml Output Total 10 ml 10 ml Balance 650 ml 1020 ml 1991 ml Intake Oral 360 ml 720 ml 1800 ml IV Total 300 ml 100 ml 201 ml Other 200 ml Drainage Total 10 ml 10 ml # Voids 1 4 1 2 5 # Bowel Movements 2 3 Result Diagram: 05/30/17 0549 05/30/17 0549 Imaging Last Impressions Abdomen/Pelvis CT 05/22/17 1022 Signed Impressions: Service Date/Time: Monday, May 22, 2017 12:28 - CONCLUSION: 1. Bowel wall thickening descending colon and induration consistent with an inflammatory process.. Underlying neoplasm excluded. 2. Evidence for previous abdominal wall surgery 3. Hiatal hernia. 4. Findings have been discussed with the referring physician. Jose Garcia MD FACR Objective Remarks GENERAL: Alert, oriented 3, NAD. SKIN: Warm and dry. HEAD: Normocephalic. EYES: No scleral icterus. No injection or drainage. NECK: Supple, trachea midline. No JVD or lymphadenopathy. CARDIOVASCULAR: Regular rate and rhythm without murmurs, gallops, or rubs. RESPIRATORY: Breath sounds equal bilaterally. No accessory muscle use. GASTROINTESTINAL: Abdomen soft, nondistended. Right side of the abdomen tender to palpation. There is a bulge from the right side of the abdomen. MUSCULOSKELETAL: No cyanosis, or edema. BACK: Nontender without obvious deformity. No CVA tenderness. Procedures Pigtail catheter drain placement by IR 05/26/2017 A/P Problem List: (1) Abdominal wall abscess ICD Code: L02.211 Status: Acute (2) Acute diverticulitis ICD Code: K57.92 Status: Acute (3) Colonic diverticular abscess ICD Code: K57.20 Status: Acute Assessment and Plan Mr. Mendez is a 57-year-old male with history of situs inversus, diverticulitis , right abdominal wall abscess s/p drain placement/removal, HTN, HLD, hiatal hernia, multiple abdominal hernia repairs with mesh, GERD, presents with a four- day history of abdominal pain. Acute Diverticulitis with Sepsis: meets sepsis criteria with +leukocytosis WBC 13.7K and tachycardia HR 94, with source diverticulitis vs abscess. Tmax 100.4. Lactic acid 0.7. CT abd/pelvis images reviewed, shows marked induration and bowel wall thickening in the descending colon; induration in abdominal wall with small abscess present; direct visualization suggested to exclude underlying neoplasm. - s/p Colonoscopy on 05/29/2017 --> descending colon inflammatory mass - possibility of malignancy. - blood cultures with NGTD - Continue antibiotics with IV Cipro/Flagyl. Discussed with Dr. Boston on 05/24/2017 who recommended continuation of IV abx. - Continue PO protonix. - advanced diet, patient tolerating well. NPO midnight for surgery tomorrow. Discussed with Dr. Lau. - tumor markers ordered for concern for neoplasm, CEA markedly elevated at 350; AFP and CA 19-9 wnl. - Continue Acetaminophen for Pain 1-3, Percocet for pain 4-7 and IV Dilaudid 1mg Q3hrs for Pain 8-10 - All PRN. Hypertension/Hyperlipidemia: chronic, stable - continue patient's lisinopril 20mg BID and Pravastatin 40mg Qday. - continue Aspirin 81mg Qday. Diabetes Mellitus: last HgbA1c 6.7 on 03/17/17, much improved from previous HgbA1c 10.1 on 05/26/15 - hold patient's metformin - Continue patient's glipizide - monitor accu-checks, cover with low dose SSI. Blood glucose well controlled. Tobacco Use: smokes 3-4 cigarettes daily - counseled on cessation - nicotine patch prn Asthma, Possible COPD with +tobacco use: chronic, not in exacerbation -continue patient's albuterol inhaler prn -incentive spirometry -encourage ambulation -Mucinex bid prn Full code. ALFREDAs Boris Aguilera DO May 30, 2017 17:04
[2017-05-30 20:00] VITALS: BP 125/78; PULSE 75; RESP 18; TEMP 96.9; O2SAT 91
[2017-05-31] VITALS: BP 125/80; PULSE 68; RESP 18; TEMP 97.1; O2SAT 96
[2017-05-31] MEDS: metroNIDAZOLE 500 MG INJ 100 ML IV SCH ×4 (00:50→23:31)
[2017-05-31] MEDS: HYDROmorphone HCL PF 1 MG/ML VIAL IV PUSH PRN ×4 (02:24→13:07)
[2017-05-31] MEDS: oxyCODONE/ACETAMINOPHEN 10 MG/325 MG TAB PO PRN ×3 (02:25→10:43)
[2017-05-31] MEDS: CIPROFLOXACIN 400 MG PREMIX 200 ML IV SCH ×2 (02:26→14:38)
[2017-05-31] MEDS: INSULIN ASPART SUPPLEMENTAL SCALE SQ SCH ×4 (06:15→21:00)
[2017-05-31 08:00] VITALS: BP 106/78; PULSE 69; RESP 19; TEMP 97.8; O2SAT 97
--- NOTE | 2017-05-31 08:57 | RADRPT ---
EXAM DATE/TIME: 05/26/2017 15:56 [place] COMPARISON: No previous studies available for comparison. INDICATIONS : Right abdomen abscess SEDATION TIME: 20 minutes MEDICATION(S): 1.) 150 mcg fentanyl (Sublimaze) IV DEVICE(S): 1.) 8 Fr Skater Total volume of 20 cc of cloudy, yellow fluid was removed. Fluid was sent for laboratory ordered studies. MEDICAL HISTORY : Hypertension. Chronic obstructive pulmonary disease. Diverticulitis. Diabetes SURGICAL HISTORY : hiatal hernea repair ENCOUNTER: Initial ACUITY: 1 day PAIN SCORE: 0/10 LOCATION: Right Abdomen PROCEDURE: 1.) Conscious sedation with continuous EKG and oximetry monitoring. PROCEDURE : 1. CT guided drainage of the right flank abscess. 2. Conscious sedation with continuous EKG and oximetry monitoring. The risks, benefits and alternatives to the procedure were explained and verbal and written consent w as obtained. Using automated exposure control and adjustment of the mA and/or kV according to patient size, radiation dose was kept as low as reasonably achievable to obtain optimal diagnostic quality i mages. The site was prepped in sterile fashion. Full sterile technique was used, including cap, ma sk, sterile gloves and gown and a large sterile sheet. Hand hygiene and 2% chlorhexidine and/or beta dine/alcohol prep was utilized per protocol for cutaneous antisepsis. The skin and subcutaneous tiss ues were infiltrated with local anesthetic solution. DICOM format image data is available electronic ally for review and comparison. Using CT guidance the prescribed site was localized. 8-German locking catheter was placed in the abs cess cavity. 20 cc of pus removed and sent for Gram stain and culture. The patient tolerated the procedure well and there were no complications. Conscious sedation was per formed with the prescribed dosages and duration as above in the presence of an independent trained ra diology nurse to assist in the monitoring of the patient. EKG and oximetry remained stable throughou t the procedure. The patient tolerated the procedure well and there were no complications. The patient was sent to pos t anesthesia recovery in stable condition. CONCLUSION: Uncomplicated CT guided drainage. The fluid was sent for stat Gram stain and culture. Jose Garcia MD FACR on May 31, 2017 at 8:54 Board Certified Radiologist. This report was verified electronically.
[2017-05-31] MEDS: ASPIRIN 325 MG TAB PO SCH (09:00)
[2017-05-31] MEDS: glipiZIDE 5 MG TAB PO SCH (09:00)
[2017-05-31] MEDS: PRAVASTATIN SOD 40 MG TAB PO SCH (09:21)
[2017-05-31] MEDS: LISINOPRIL 20 MG TAB PO SCH (09:21)
[2017-05-31] MEDS: PANTOPRAZOLE SOD 40 MG DELAYED RELEASE TAB PO SCH (09:21)
[2017-05-31] MEDS: DOCUSATE SODIUM 50 MG/SENNA 8.6 MG TAB PO SCH (09:21)
[2017-05-31] MEDS: SODIUM CHLORIDE 0.9% FLUSH 10 ML FLUSH IV FLUSH SCH ×2 (09:22→21:00)
[2017-05-31] MEDS ORDERED: ONDANSETRON HCL 4 MG/2 ML VIAL IV PUSH ONE (12:00)
[2017-05-31] MEDS ORDERED: LACTATED RINGER'S 1000 ML INJ 1,000 ML IV ONE (12:00)
[2017-05-31] MEDS ORDERED: PROPOFOL 200 MG/20 ML AMP IV ONE (12:00)
--- NOTE | 2017-05-31 12:06 | HHI.GIFU ---
Subjective Remarks Resting in bed in no distress. States his surgery is scheduled for 2 PM today. He is not having any nausea or vomiting. He had multiple bowel movements last night. He has abdominal discomfort at the site of the drain, which he states is controlled (Radhika Khan) Objective Vitals I&O Vital Signs Date Time Temp Pulse Resp B/P Pulse Ox O2 Delivery O2 Flow Rate FiO2 05/31/17 08:00 97.8 69 19 106/78 97 05/31/17 00:00 97.1 68 18 125/80 96 05/30/17 20:00 96.9 75 18 125/78 91 05/30/17 16:00 95.8 61 17 112/64 95 I/O 05/30/17 05/30/17 05/30/17 05/31/17 05/31/17 05/31/17 07:00 15:00 23:00 07:00 15:00 23:00 Intake Total 2001 ml 0 ml Output Total 10 ml Balance 1991 ml 0 ml Intake Oral 1800 ml 0 ml IV Total 201 ml Drainage Total 10 ml # Voids 2 5 1 1 # Bowel Movements 3 Laboratory Date/Time Procedure Status Source Growth 05/26/17 16:15 Gram Stain - Final Complete Abscess Abdomen 05/26/17 16:15 Wound Culture - Final Complete Mixed Anaerobes Imaging Last Impressions Retroperitoneal Abscess Drainage 05/26/17 0000 Signed Impressions: Service Date/Time: Friday, May 26, 2017 15:56 - CONCLUSION: Uncomplicated CT guided drainage. The fluid was sent for stat Gram stain and culture. Jose Garcia MD FACR Abdomen/Pelvis CT 05/22/17 1022 Signed Impressions: Service Date/Time: Monday, May 22, 2017 12:28 - CONCLUSION: 1. Bowel wall thickening descending colon and induration consistent with an inflammatory process.. Underlying neoplasm excluded. 2. Evidence for previous abdominal wall surgery 3. Hiatal hernia. 4. Findings have been discussed with the referring physician. Jose Garcia MD FACR Physical Exam HEENT: Normocephalic; atraumatic; no jaundice. CHEST: Resp. even/unlabored. CARDIAC: RRR ABDOMEN: Abdomen nondistended, soft, right sided tenderness; no hepatosplenomegaly; bowel sounds are present x 4. Drain on right side. EXTREMITIES: No clubbing, cyanosis, or edema. SKIN: Normal; no rash; no jaundice. PT ESCORT: No focal deficits; alert and oriented x 3 (Radhika Khan) Assessment and Plan Plan ASSESSMENT - Descending colon mass. Elevated CEA 350.3. CT Scan abdomen and pelvis ()----> 1. Bowel wall thickening descending colon and induration consistent with an inflammatory process.. Underlying neoplasm excluded. 2. Evidence for previous abdominal wall surgery 3. Hiatal hernia. 4. Findings have been discussed with the referring physician. S/P Colonoscopy (05/30/17)---> 1. Poor prep, diverticulosis sigmoid,descending, inflammatory mass in descending , almost obstructing the lumen, very friable, cannot r/o malignancy- biopsies 2. Retroflexed views revealed internal hemorrhoids 3. Retroflexed views revealed small internal hemorrhoids 4. Revealed external hemorrhoids. Pathology pending. GS following, going to OR today at 2pm. Ciprol/Flagyl - Abdominal pain, RLQ. History of diverticulitis with abscess. CT 05-22-17-> bowel wall thickening in descending colon and induration c/w inflammatory process, underlying neoplasm excluded, evidence prev abd wall surgery, hiatal hernia, small abscess present. S/P Retroperitoneal Abscess Drainage (05/26/17)-----> Uncomplicated CT guided drainage. The fluid was sent for stat Gram stain and culture---> Mixed anaerobes. Colonoscopy as above. Scheduled for surgery today at 2pm.. Cipro/ Flagyl - Isolated elevated alkaline phosphatase. - Leukocytosis. Improved. 7.5. Cipro/Flagyl PLAN - Diet per GS - GS following, going to OR this afternoon - Cipro/Flagyl - Monitor labs - Await pathology from colonoscopy - Supportive care - Further recommendations to follow based on results of above - Patient seen and examined by Dr. Funez and myself and this note is written on her behalf. (Radhika Khan) Radhika Khan May 31, 2017 12:06 Chiqui Funez MD May 31, 2017 17:04
[2017-05-31] MEDS ORDERED: ACETAMINOPHEN 1000 MG/100 ML VIAL IV ONE (14:10)
[2017-05-31] MEDS ORDERED: FAMOTIDINE 20 MG/2 ML VIAL ONE (14:10)
[2017-05-31] MEDS ORDERED: fentaNYL CITRATE 250 MCG/5 ML AMP ONE ×2 (14:10→17:28)
[2017-05-31] MEDS ORDERED: MIDAZOLAM HCL 2 MG/2 ML VIAL ONE (14:10)
[2017-05-31] MEDS ORDERED: SUGAMMADEX SODIUM 200 MG/2 ML VIAL IV PUSH ONE ×2 (14:57)
[2017-05-31] MEDS ORDERED: BUPIVACAINE/EPINEPHRINE 0.25% 50 ML VIAL ONE (15:16)
[2017-05-31] MEDS ORDERED: metroNIDAZOLE 500 MG TAB ONE (15:26)
--- NOTE | 2017-05-31 17:08 | HHI.PR ---
Subjective Remarks Follow up for diverticulitis, abdominal abscess. Patient is doing well. Ambulating well. Going for surgery this afternoon. Objective Vitals Vital Signs Date Time Temp Pulse Resp B/P Pulse Ox O2 Delivery O2 Flow Rate FiO2 05/31/17 08:00 97.8 69 19 106/78 97 05/31/17 00:00 97.1 68 18 125/80 96 05/30/17 20:00 96.9 75 18 125/78 91 I/O 05/30/17 05/30/17 05/30/17 05/31/17 05/31/17 05/31/17 07:00 15:00 23:00 07:00 15:00 23:00 Intake Total 2001 ml 200 ml Output Total 10 ml 600 ml Balance 1991 ml -400 ml Intake Oral 1800 ml 0 ml IV Total 201 ml 200 ml Output Urine Total 600 ml Drainage Total 10 ml # Voids 2 5 1 1 # Bowel Movements 3 0 Result Diagram: 05/30/17 0549 05/30/17 0549 Imaging Last Impressions Retroperitoneal Abscess Drainage 05/26/17 0000 Signed Impressions: Service Date/Time: Friday, May 26, 2017 15:56 - CONCLUSION: Uncomplicated CT guided drainage. The fluid was sent for stat Gram stain and culture. Jose Garcia MD FACR Abdomen/Pelvis CT 05/22/17 1022 Signed Impressions: Service Date/Time: Monday, May 22, 2017 12:28 - CONCLUSION: 1. Bowel wall thickening descending colon and induration consistent with an inflammatory process.. Underlying neoplasm excluded. 2. Evidence for previous abdominal wall surgery 3. Hiatal hernia. 4. Findings have been discussed with the referring physician. Jose Garcia MD FACR Objective Remarks GENERAL: Alert, oriented 3, NAD. SKIN: Warm and dry. HEAD: Normocephalic. EYES: No scleral icterus. No injection or drainage. NECK: Supple, trachea midline. No JVD or lymphadenopathy. CARDIOVASCULAR: Regular rate and rhythm without murmurs, gallops, or rubs. RESPIRATORY: Breath sounds equal bilaterally. No accessory muscle use. GASTROINTESTINAL: Abdomen soft, nondistended. Right side of the abdomen tender to palpation. There is a bulge from the right side of the abdomen. MUSCULOSKELETAL: No cyanosis, or edema. BACK: Nontender without obvious deformity. No CVA tenderness. Procedures Pigtail catheter drain placement by IR 05/26/2017 A/P Problem List: (1) Abdominal wall abscess ICD Code: L02.211 Status: Acute (2) Acute diverticulitis ICD Code: K57.92 Status: Acute (3) Colonic diverticular abscess ICD Code: K57.20 Status: Acute Assessment and Plan Mr. Mendez is a 57-year-old male with history of situs inversus, diverticulitis , right abdominal wall abscess s/p drain placement/removal, HTN, HLD, hiatal hernia, multiple abdominal hernia repairs with mesh, GERD, presents with a four- day history of abdominal pain. Acute Diverticulitis with Sepsis: meets sepsis criteria with +leukocytosis WBC 13.7K and tachycardia HR 94, with source diverticulitis vs abscess. Tmax 100.4. Lactic acid 0.7. CT abd/pelvis images reviewed, shows marked induration and bowel wall thickening in the descending colon; induration in abdominal wall with small abscess present; direct visualization suggested to exclude underlying neoplasm. - s/p Colonoscopy on 05/29/2017 --> descending colon inflammatory mass - possibility of malignancy. - blood cultures with NGTD - Continue antibiotics with IV Cipro/Flagyl. Discussed with Dr. Boston on 05/24/2017 who recommended continuation of IV abx. - Continue PO protonix. - advanced diet, patient tolerating well. Surgical intervention today. - tumor markers ordered for concern for neoplasm, CEA markedly elevated at 350; AFP and CA 19-9 wnl. - Continue Acetaminophen for Pain 1-3, Percocet for pain 4-7 and IV Dilaudid 1mg Q3hrs for Pain 8-10 - All PRN. Hypertension/Hyperlipidemia: chronic, stable - continue patient's lisinopril 20mg BID and Pravastatin 40mg Qday. - continue Aspirin 81mg Qday. Diabetes Mellitus: last HgbA1c 6.7 on 03/17/17, much improved from previous HgbA1c 10.1 on 05/26/15 - hold patient's metformin - Continue patient's glipizide - monitor accu-checks, cover with low dose SSI. Blood glucose well controlled. Tobacco Use: smokes 3-4 cigarettes daily - counseled on cessation - nicotine patch prn Asthma, Possible COPD with +tobacco use: chronic, not in exacerbation -continue patient's albuterol inhaler prn -incentive spirometry -encourage ambulation -Mucinex bid prn Full code. Boris Castro DO May 31, 2017 17:08
[2017-05-31] MEDS ORDERED: *morphine SULFATE 8 MG/ML PERIprocedure ONLY ONE ×2 (17:27→17:34)
--- NOTE | 2017-05-31 17:42 | HHI.PR ---
cc: Jigar Lau MD Immediate Post Op Note Procedure Date: May 31, 2017 Pre Op Diagnosis: (1) Situs inversus (2) Abdominal wall abscess (3) Colonic diverticular abscess (4) Hepatitis C Post Op Diagnosis: (1) Situs inversus (2) Abdominal wall abscess (3) Meckels diverticulum (4) Colonic diverticular abscess Surgeon: Jigar Lau Senior Research Scientist(s): Dr. Mir haynes Procedure: Exploratory laparotomy Lysis of adhesions Descending colectomy with primary anastomosis Incision and drainage of right abdominal wall abscess Note descending colon was on the right side Findings: Complete situs inversus Appeared to be a diverticular abscess that was contained Meckel's diverticulum Specimen(s) removed: Descending colon Estimated blood loss: Minimum Anesthesia: General Drains: None IVF Patient to: PACU Patient Condition: Good Implant/Devices: SEE IMPLANT LOG (if applicable) Date/Time of Procedure: SEE SURGICAL CARE RECORD Jigar Lau MD May 31, 2017 17:42
[2017-05-31] MEDS: LACTATED RINGER'S 1000 ML INJ 1,000 ML IV SCH (17:44)
[2017-05-31] MEDS: HYDROmorphone HCL PCA 6 MG/30 ML IV SCH ×2 (17:45→21:00)
[2017-05-31] MEDS: PANTOPRAZOLE SODIUM 40 MG VIAL IV SCH (17:56)
[2017-05-31] MEDS ORDERED: *ONDANSETRON 4 MG VIAL PERIprocedural Use ONLY ONE (17:57)
[2017-05-31] MEDS ORDERED: ENOXAPARIN SODIUM 30 MG/0.3 ML SYRINGE SQ SCH (18:00)
[2017-05-31] MEDS ORDERED: DO NOT ADM ANY ANTICOAGULANT DRUGS PRN (18:15)
[2017-05-31] MEDS: FLUCONAZOLE 400 MG PREMIX BAG 200 ML IV SCH (18:28)
[2017-05-31 18:34] VITALS: BP 97/56; PULSE 78; RESP 16; TEMP 98.7; O2SAT 95
[2017-05-31 18:44] VITALS: BP 102/58
[2017-05-31 19:01] VITALS: O2SAT 95
[2017-05-31 20:00] VITALS: BP 101/59; PULSE 79; RESP 20; TEMP 97.1; O2SAT 97
[2017-05-31] MEDS: PCA - TOTAL MG DILAUDID DELIVERED PER SHIFT OTHER SCH (21:01)
[2017-06-01] VITALS (8 sets, daily range): BP systolic 98–126; BP diastolic 62–72; PULSE 78–85; RESP 18–20; TEMP 96–98.5; O2SAT 93–97
[2017-06-01] MEDS: HYDROmorphone HCL PCA 6 MG/30 ML IV SCH ×7 (00:12→22:51)
[2017-06-01] MEDS: CIPROFLOXACIN 400 MG PREMIX 200 ML IV SCH ×2 (02:14→14:51)
[2017-06-01] MEDS: LACTATED RINGER'S 1000 ML INJ 1,000 ML IV SCH ×3 (03:22→22:53)
[2017-06-01] MEDS: PCA - TOTAL MG DILAUDID DELIVERED PER SHIFT OTHER SCH ×3 (04:52→21:33)
[2017-06-01] MEDS: INSULIN ASPART SUPPLEMENTAL SCALE SQ SCH ×4 (04:57→21:00)
[2017-06-01 06:58] LABS: AUTOMATED NEUTROPHIL # 9.9 TH/MM3 (1.8-7.7); BASOPHIL % 0.2 % (0.0-2.0); EOSINOPHIL # 0.1 TH/MM3 (0-0.4); EOSINOPHIL % 0.6 % (0.0-4.0); HEMATOCRIT 33.9 % (39.0-51.0); HEMO FLAGS DIFF FINAL; LYMPH % 9.2 % (9.0-44.0); LYMPHOCYTE # 1.1 TH/MM3 (1.0-4.8); MEAN CORPUSCULAR HEMOGLOBIN 21.4 PG (27.0-34.0); MEAN CORPUSCULAR HGB CONC 30.5 % (32.0-36.0); MONO % 3.8 % (0.0-8.0); NEUT % 86.2 % (16.0-70.0); PLATELET COUNT 385 TH/MM3 (150-450); RED BLOOD COUNT 4.84 MIL/MM3 (4.50-5.90); RED CELL DISTRIBUTION WIDTH 18.9 % (11.6-17.2); WHITE BLOOD COUNT 11.4 TH/MM3 (4.0-11.0)
[2017-06-01 07:19] LABS: BICARBONATE 27.3 MEQ/L (21.0-32.0); POTASSIUM 4.2 MEQ/L (3.5-5.1)
--- NOTE | 2017-06-01 08:16 | MP ---
cc: MELANY LAU M.D. DATE OF SURGERY 05/31/2017 PREOPERATIVE DIAGNOSIS 1. Situs inversus 2. Right sided descending colon mass, probable diverticular stricture from diverticulosis, diverticulitis, possible malignancy. 3. Recurrent incisional hernia. 4. Previous numerous surgeries. POSTOPERATIVE DIAGNOSIS 1. Situs inversus 2. Intra-abdominal adhesions. 3. Right sided descending colonic mass/abscess/ inflammatory process/ malignancy at the splenic flexure. (pending permanent path) 4. Meckel's diverticulum 5. Intra-abdominal adhesions PROCEDURE 1. Exploratory laparotomy, lysis of adhesions. 2. Identification of Meckel's diverticulum. 3. Extended Descending right sided colectomy 4. Takedown of splenic flexure ( on the right side). 5. Primary anastomosis. 6. Repair of recurrent incisional hernia above previous mesh. 7. drain right sided abdominal abscess. SURGEON Dr. Cody Lau MD ELECTRONIC PARTS SALESPERSON Dr. Mir Trevino MD The television production assistant was present from beginning to the end of the case assisting in all portions of the procedure. It was necessary to have this individual in the room to assist in the above surgical procedure. The surgical procedure was assisted by Dr Mir Trevino. His presence was necessary throughout the case for appropriate retraction, dissection, visualization, and resection of the important anatomical structures during the surgical procedure. He was assisting throughout the entirety of the operation. His skill set was medically and surgically necessary to safely complete the surgical procedure. During the surgical case the operating room operating room surgical technician was working instrument table and passing instruments to the attending surgeon and the Flush Tester. The television production assistant was directly assisting the operating surgeon and involved in the technical aspects of the unusual surgical case. INDICATIONS This is a pleasant gentleman who is [id number]. He is known to have situs inversus where all his organs are a mirror image of a normal person. He presented with a colonic stricture in his right sided descending colon which is very unusual. This was found on previous CT scan, was thought to be of a diverticular abscess late last year. Apparently, he was lost to followup when another surgeon was following him. Dr. Funez has scoped him and found a near obstructing stricture in the right sided descending colon just past the splenic flexure on the right side. There is some question if this was a malignancy. Biopsies did not show any malignancy. Plans were made for resection. this was know to be a very rare and unusual case because of his Situs inversus, in addition his previous surgery and the prolonged period of time this has been going on. PROCEDURE The patient taken to the operating room, placed in the supine position. After anesthesia, his abdomen was prepped with Betadine. A time-out was done. All in the room were educated about complete situs inversus. We made a midline incision in his previous midline. He had a recurrent incisional hernia just above where he had a laparoscopic repair with [place]-Jose L mesh. We dissect down to the mesh. The mesh was incised in the midline. Adhesions were taken down from the mesh. The abdomen was explored. It is noted that his spleen is on the right side, liver is on the left side. His stomach is on the right side. The mass is felt on the right side. The sigmoid colon is on the right side. His appendix is on the left side. He does have a Meckel's diverticulum. It appears to be broad-based. No other abnormalities seen in the small bowel. His liver on the left side is smooth without any abnormality. His gallbladder does not have stones. He is status post a Margarita fundoplication. The NG tube is in the stomach. we place the large wound protector to reduce the chance of infection. With gentle blunt dissection and some sharp dissection, we were able separate this inflammatory mass of the right sided descending colon just past the splenic flexure and the white line of Toldt on the right side is taken down to elevate the descending colon. We get to the right side of the middle colic vessel and are able to take the BILL stapling device and divide the colon approximately 6 cm from the proximal to the mass in the colon. We then dissect down about 8 cm distal to this. He is noted to have a floppy sigmoid that is somewhat redundant. This is freed up to allow the anastomosis. We staple this off and dissect down to the root of the mesentery and the vessel supplying the right sided descending colon is tied with a 0-silk and the specimen was marked proximally with a suture and passed off the field. It was noted that I do not feel any lymphadenopathy. We then irrigate the abdomen, the mesentery for the splenic flexure that was taken down, or the transverse colon. It is noted we did take the splenic flexure down to facilitate removal of the lesion. To me, it looked mostly inflammatory and is soft and boggy. It was somewhat adherent to the anterior abdominal wall to the right side which was easily taken down. There was no pus that was noted. We then close the mesentery that is posteriorly in the retroperitoneum and then do a [id number] functional end-to-end anastomosis with a BILL stapling device. The remaining enterotomy is closed with TA-60 device with a widely patent anastomosis. The staple line was oversewn with silk pop-off stitches. The remaining mesentery is reapproximated with silk pop-off's. The omentum is then draped over the anastomosis. We then irrigate copiously. There is excellent hemostasis. We then close the recurrent incisional hernia with the #1 nylon at the fascia and then the mesh that was cut is reapproximated using #1 nylon in a running fashion. The subcutaneous tissues were then washed and then we close the skin with a skin stapling device. Where this inflammatory mass was located on the right side of his abdomen, there was a drain that had been placed by radiology. This was removed prior to prepping and draping and the small opening was just opened and packed with Iodoform gauze to facilitate further drainage, not more inflamed tissue, but no abscess was noted. There will be a modifier provided on this procedure because of the alternative anatomy that the patient has where all his organs were reversed and his previous surgeries which made it necessary for an television production assistant. Dr. Trevino provided assistance during the entirety of the procedure that was most unusual because of the position of all his organs. He tolerated the procedure well, was awoken in the recovery room with normal postop recovery. MD OLY Paez/YESENIA /7:17 PM /8:00 AM DAVID
[2017-06-01] MEDS: metroNIDAZOLE 500 MG INJ 100 ML IV SCH ×3 (08:21→22:53)
[2017-06-01] MEDS: SODIUM CHLORIDE 0.9% FLUSH 10 ML FLUSH IV FLUSH SCH ×2 (08:21→21:32)
--- NOTE | 2017-06-01 11:02 | HHI.PR ---
Subjective Subjective Notes PROGRESS NOTE FOR SURGICAL ATTENDING, DR. JIGAR LAU Pain controlled with DOORPERSON OR LUGGAGE PORTER Asking for Ricardo out Very happy that he does not have colostomy Objective Vitals/I&O Vital Signs Date Time Temp Pulse Resp B/P Pulse Ox O2 Delivery O2 Flow Rate FiO2 06/01/17 07:33 18 06/01/17 07:30 98.5 80 109/71 95 05/31/17 19:01 Nasal Cannula 2.00 Labs Laboratory Tests Test 05/31/17 06/01/17 14:00 06:11 Blood Type A POSITIVE Antibody Screen NEGATIVE White Blood Count 11.4 Red Blood Count 4.84 Hemoglobin 10.3 Hematocrit 33.9 Mean Corpuscular Volume 70.0 Mean Corpuscular Hemoglobin 21.4 Mean Corpuscular Hemoglobin 30.5 Concent Red Cell Distribution Width 18.9 Platelet Count 385 Mean Platelet Volume 6.9 Neutrophils (%) (Auto) 86.2 Lymphocytes (%) (Auto) 9.2 Monocytes (%) (Auto) 3.8 Eosinophils (%) (Auto) 0.6 Basophils (%) (Auto) 0.2 Neutrophils # (Auto) 9.9 Lymphocytes # (Auto) 1.1 Monocytes # (Auto) 0.4 Eosinophils # (Auto) 0.1 Basophils # (Auto) 0.0 CBC Comment DIFF FINAL Differential Comment Sodium Level 139 Potassium Level 4.2 Chloride Level 104 Carbon Dioxide Level 27.3 Anion Gap 8 Blood Urea Nitrogen 12 Creatinine 1.05 Estimat Glomerular Filtration 73 Rate Random Glucose 120 Calcium Level 8.2 Radiology Last Impressions Retroperitoneal Abscess Drainage 05/26/17 0000 Signed Impressions: Service Date/Time: Friday, May 26, 2017 15:56 - CONCLUSION: Uncomplicated CT guided drainage. The fluid was sent for stat Gram stain and culture. Jose Garcia MD FACR Abdomen/Pelvis CT 05/22/17 1022 Signed Impressions: Service Date/Time: Monday, May 22, 2017 12:28 - CONCLUSION: 1. Bowel wall thickening descending colon and induration consistent with an inflammatory process.. Underlying neoplasm excluded. 2. Evidence for previous abdominal wall surgery 3. Hiatal hernia. 4. Findings have been discussed with the referring physician. Jose Garcia MD FACR Cardiovascular: Regular Lungs: Clear Abdomen: Other (midline incision with dressing in place; minimaly drainage; prior drain site with dressing in place also c/d/i; abdomen tender; mildly distended ) Extremities: No edema A/P Problem List: (1) Situs inversus (2) Dextrocardia (3) Abdominal wall abscess (4) Colonic diverticular abscess (5) Acute diverticulitis (6) Diverticulitis (7) Chronic airway obstruction (8) Diabetes mellitus (9) Obesity (10) Hepatitis C (11) History of incisional hernia repair (12) History of Margarita fundoplication (13) Sepsis Assessment and Plan 57 year old male with Meckel's diverticulum, right sided descending colonic mass /abscess; POD1 ex lap; descending colectomy; primary anastomosis; repair of recurrent incisional hernia repair - DOORPERSON OR LUGGAGE PORTER for pain control -IVF -NPO -Abdominal binder -IS -OOB and mobilize today -Will change dressing POD2 -DC Davion Attending Statement PROGRESS NOTE FOR SURGICAL ATTENDING, DR. JIGAR LAU I agree with above assessment and plan. The exam, history, and the medical decision-making described in the above note were completed with the assistance of the mid-level provider. I reviewed and agree with the findings presented. I attest that I had a [id number] encounter with the patient on the same day, and personally performed and documented my assessment and findings in the medical record. The following services were provided during this hospital visit: Chart data review, vital sign assessments/reviewing monitor data Review of consultations notes if present. Medication orders/review and/or management Ordering and/or reviewing lab tests Ordering and/or interpreting/reviewing x-rays and/or diagnostic studies Care of the patient and discussion of the patient with the care team Documentation time To help prompt me to consider important information that might be impacting today's encounter and assessment, information from prior notes written by myself or my colleagues may have been "brought forward/copy and pasted" into today's note. Problem Qualifiers (1) Diverticulitis: (2) Chronic airway obstruction: Qualified Code: J41.0 - Simple chronic bronchitis (3) Diabetes mellitus: (4) Obesity: (5) Hepatitis C: Qualified Code: B18.2 - Chronic hepatitis C without hepatic coma Albina LorenzP Jun 01, 2017 11:02 Jigar Lau MD Jun 01, 2017 15:52
--- NOTE | 2017-06-01 13:27 | HHI.GIFU ---
Subjective Remarks Resting in bed. Had surgery yesterday, states he is very happy that he did not require a colostomy. Pain controlled with VASCULAR TECHNOLOGIST. (Radhika Khan) Objective Vitals I&O Vital Signs Date Time Temp Pulse Resp B/P Pulse Ox O2 Delivery O2 Flow Rate FiO2 06/01/17 12:00 97.7 82 20 120/66 96 06/01/17 07:33 18 06/01/17 07:30 98.5 80 20 109/71 95 06/01/17 04:52 18 06/01/17 04:00 97.7 78 18 98/62 93 06/01/17 00:12 18 06/01/17 00:00 97.8 79 20 107/64 93 05/31/17 21:01 18 05/31/17 21:00 18 05/31/17 20:00 97.1 79 20 101/59 97 05/31/17 19:01 95 Nasal Cannula 2.00 05/31/17 18:44 102/58 05/31/17 18:34 98.7 78 16 97/56 95 05/31/17 18:00 71 16 91/53 95 Nasal Cannula 2 05/31/17 17:45 72 16 91/52 94 Nasal Cannula 2 05/31/17 17:45 15 05/31/17 17:30 77 16 95/57 96 Nasal Cannula 2 05/31/17 17:15 83 16 108/66 96 Nasal Cannula 2 05/31/17 17:14 97.6 83 16 103/62 97 Nasal Cannula 2 I/O 05/31/17 05/31/17 05/31/17 06/01/17 06/01/17 06/01/17 07:00 15:00 23:00 07:00 15:00 23:00 Intake Total 200 ml 835 ml 917 ml Output Total 600 ml 350 ml 325 ml 530 ml Balance -400 ml -350 ml 510 ml 387 ml Intake Oral 0 ml 0 ml 120 ml IV Total 200 ml 835 ml 797 ml Output Urine Total 600 ml 350 ml 325 ml 530 ml # Voids 1 # Bowel Movements 0 Laboratory Laboratory Tests Test 05/31/17 06/01/17 14:00 06:11 Blood Type A POSITIVE Antibody Screen NEGATIVE White Blood Count 11.4 Red Blood Count 4.84 Hemoglobin 10.3 Hematocrit 33.9 Mean Corpuscular Volume 70.0 Mean Corpuscular Hemoglobin 21.4 Mean Corpuscular Hemoglobin 30.5 Concent Red Cell Distribution Width 18.9 Platelet Count 385 Mean Platelet Volume 6.9 Neutrophils (%) (Auto) 86.2 Lymphocytes (%) (Auto) 9.2 Monocytes (%) (Auto) 3.8 Eosinophils (%) (Auto) 0.6 Basophils (%) (Auto) 0.2 Neutrophils # (Auto) 9.9 Lymphocytes # (Auto) 1.1 Monocytes # (Auto) 0.4 Eosinophils # (Auto) 0.1 Basophils # (Auto) 0.0 CBC Comment DIFF FINAL Differential Comment Sodium Level 139 Potassium Level 4.2 Chloride Level 104 Carbon Dioxide Level 27.3 Anion Gap 8 Blood Urea Nitrogen 12 Creatinine 1.05 Estimat Glomerular Filtration 73 Rate Random Glucose 120 Calcium Level 8.2 Imaging Last Impressions Retroperitoneal Abscess Drainage 05/26/17 0000 Signed Impressions: Service Date/Time: Friday, May 26, 2017 15:56 - CONCLUSION: Uncomplicated CT guided drainage. The fluid was sent for stat Gram stain and culture. Jose Garcia MD FACR Abdomen/Pelvis CT 05/22/17 1022 Signed Impressions: Service Date/Time: Monday, May 22, 2017 12:28 - CONCLUSION: 1. Bowel wall thickening descending colon and induration consistent with an inflammatory process.. Underlying neoplasm excluded. 2. Evidence for previous abdominal wall surgery 3. Hiatal hernia. 4. Findings have been discussed with the referring physician. Jose Garcia MD FACR Physical Exam HEENT: Normocephalic; atraumatic; no jaundice. CHEST: Resp. even/unlabored. CARDIAC: RRR ABDOMEN: Abdomen nondistended, diffuse tenderness, mildline drsg d/i, abdominal binder; no hepatosplenomegaly EXTREMITIES: No clubbing, cyanosis, or edema. SKIN: Normal; no rash; no jaundice. MAGISTRATE: No focal deficits; alert and oriented x 3 (Radhika Khan) Assessment and Plan Plan ASSESSMENT - Descending colon mass. Elevated CEA 350.3. CT Scan abdomen and pelvis ()----> 1. Bowel wall thickening descending colon and induration consistent with an inflammatory process.. Underlying neoplasm excluded. 2. Evidence for previous abdominal wall surgery 3. Hiatal hernia. 4. Findings have been discussed with the referring physician. S/P Colonoscopy (05/30/17)---> 1. Poor prep, diverticulosis sigmoid,descending, inflammatory mass in descending , almost obstructing the lumen, very friable, cannot r/o malignancy- biopsies 2. Retroflexed views revealed internal hemorrhoids 3. Retroflexed views revealed small internal hemorrhoids 4. Revealed external hemorrhoids. Pathology benign superficial mucosal epithelium and exudate biopsies, clinically descending colon- no evidence of dysplasia or neoplasia in small biopsy specimen. S/P Exploratory laparotomy, SUNITA, identification of Meckel's diverticulum, descending right sided descending colectomy, takedown of splenic flexure, primary anastomosis, repair of recurrent incisional hernia above previous mesh (05/31/17) with Dr. Lau. Pathology pending. GS following. Diflucan, Flagyl, Cipro. - Abdominal pain, RLQ. History of diverticulitis with abscess. CT 05-22-17-> bowel wall thickening in descending colon and induration c/w inflammatory process, underlying neoplasm excluded, evidence prev abd wall surgery, hiatal hernia, small abscess present. S/P Retroperitoneal Abscess Drainage (05/26/17)-----> Uncomplicated CT guided drainage. The fluid was sent for stat Gram stain and culture---> Mixed anaerobes. Colonoscopy as above. Scheduled for surgery today at 2pm.. Cipro/ Flagyl - Isolated elevated alkaline phosphatase. - Leukocytosis. Improved. 7.5. Cipro/Flagyl PLAN - S/P Diagnostic laparotomy, sunita, descending colectomy - NPO, diet per GS - Cipro/Flagyl - GI will sign off, please reconsult as needed - Patient seen and examined by Dr. Funez and myself and this note is written on her behalf. (Radhika Khan) Radhika Khan Jun 01, 2017 13:27 Chiqui Funez MD Jun 01, 2017 20:04
[2017-06-01] MEDS: ENOXAPARIN SODIUM 30 MG/0.3 ML SYRINGE SQ SCH (15:50)
[2017-06-01] MEDS: PANTOPRAZOLE SODIUM 40 MG VIAL IV SCH (17:19)
[2017-06-01] MEDS: FLUCONAZOLE 400 MG PREMIX BAG 200 ML IV SCH (17:19)
--- NOTE | 2017-06-01 18:50 | HHI.PR ---
Subjective Remarks Follow up for diverticulitis, abdominal abscess. Currently doing well. Pain well controlled with Dilaudid REINFORCING BAR SETTER. He is pleased that he did not require colostomy. Appreciative of the care he has been receiving. Objective Vitals Vital Signs Date Time Temp Pulse Resp B/P Pulse Ox O2 Delivery O2 Flow Rate FiO2 06/01/17 16:00 96.9 85 19 122/66 96 06/01/17 13:36 97 Nasal Cannula 2.00 06/01/17 12:00 97.7 82 20 120/66 96 06/01/17 07:33 18 06/01/17 07:30 98.5 80 20 109/71 95 06/01/17 04:52 18 06/01/17 04:00 97.7 78 18 98/62 93 06/01/17 00:12 18 06/01/17 00:00 97.8 79 20 107/64 93 05/31/17 21:01 18 05/31/17 21:00 18 05/31/17 20:00 97.1 79 20 101/59 97 05/31/17 19:01 95 Nasal Cannula 2.00 I/O 05/31/17 05/31/17 05/31/17 06/01/17 06/01/17 06/01/17 06:59 14:59 22:59 06:59 14:59 22:59 Intake Total 200 ml 835 ml 1157 ml Output Total 600 ml 350 ml 325 ml 850 ml Balance -400 ml -350 ml 510 ml 307 ml Intake Oral 0 ml 0 ml 360 ml IV Total 200 ml 835 ml 797 ml Output Urine Total 600 ml 350 ml 325 ml 850 ml # Voids 1 # Bowel Movements 0 0 Result Diagram: 06/01/17 0611 06/01/17 0611 Imaging Last Impressions Retroperitoneal Abscess Drainage 05/26/17 0000 Signed Impressions: Service Date/Time: Friday, May 26, 2017 15:56 - CONCLUSION: Uncomplicated CT guided drainage. The fluid was sent for stat Gram stain and culture. Jose Garcia MD FACR Abdomen/Pelvis CT 05/22/17 1022 Signed Impressions: Service Date/Time: Monday, May 22, 2017 12:28 - CONCLUSION: 1. Bowel wall thickening descending colon and induration consistent with an inflammatory process.. Underlying neoplasm excluded. 2. Evidence for previous abdominal wall surgery 3. Hiatal hernia. 4. Findings have been discussed with the referring physician. Jose Garcia MD FACR Objective Remarks GENERAL: Alert, oriented 3, NAD. SKIN: Warm and dry. HEAD: Normocephalic. EYES: No scleral icterus. No injection or drainage. NECK: Supple, trachea midline. No JVD or lymphadenopathy. CARDIOVASCULAR: Regular rate and rhythm without murmurs, gallops, or rubs. RESPIRATORY: Breath sounds equal bilaterally. No accessory muscle use. GASTROINTESTINAL: Abdomen soft, nondistended. Right side of the abdomen tender to palpation. s/p surgical changes. MUSCULOSKELETAL: No cyanosis, or edema. BACK: Nontender without obvious deformity. No CVA tenderness. Procedures Pigtail catheter drain placement by IR 05/26/2017 A/P Problem List: (1) Abdominal wall abscess ICD Code: L02.211 Status: Acute (2) Acute diverticulitis ICD Code: K57.92 Status: Acute (3) Colonic diverticular abscess ICD Code: K57.20 Status: Acute Assessment and Plan Mr. Mendez is a 57-year-old male with history of situs inversus, diverticulitis , right abdominal wall abscess s/p drain placement/removal, HTN, HLD, hiatal hernia, multiple abdominal hernia repairs with mesh, GERD, presents with a four- day history of abdominal pain. Acute Diverticulitis with Sepsis: meets sepsis criteria with +leukocytosis WBC 13.7K and tachycardia HR 94, with source diverticulitis vs abscess. Tmax 100.4. Lactic acid 0.7. CT abd/pelvis images reviewed, shows marked induration and bowel wall thickening in the descending colon; induration in abdominal wall with small abscess present; direct visualization suggested to exclude underlying neoplasm. - s/p Colonoscopy on 05/29/2017 --> descending colon inflammatory mass - possibility of malignancy. - blood cultures with NGTD - Continue antibiotics with IV Cipro/Flagyl, Diflucan. - s/p Ex Lap, descending colectomy, primary anastomosis, repair of recurrent hernia. - tumor markers ordered for concern for neoplasm, CEA markedly elevated at 350; AFP and CA 19-9 wnl. - Continue Dilaudid REINFORCING BAR SETTER per Surgery. Currently NPO. Hypertension/Hyperlipidemia: chronic, stable - lisinopril 20mg BID and Pravastatin 40mg Qday. - Aspirin 81mg Qday. - Oral meds on hold. Diabetes Mellitus: last HgbA1c 6.7 on 03/17/17, much improved from previous HgbA1c 10.1 on 05/26/15 - hold patient's metformin - Continue patient's glipizide (on hold). - monitor accu-checks, cover with low dose SSI. Blood glucose well controlled. Tobacco Use: smokes 3-4 cigarettes daily - counseled on cessation - nicotine patch prn Asthma, Possible COPD with +tobacco use: chronic, not in exacerbation -continue patient's albuterol inhaler prn -incentive spirometry -encourage ambulation -Mucinex bid prn Full code. SCDBoris Stack DO Jun 01, 2017 18:50
[2017-06-02] VITALS: BP 116/68; PULSE 86; RESP 20; TEMP 96.5; O2SAT 95
[2017-06-02] MEDS: HYDROmorphone HCL PCA 6 MG/30 ML IV SCH ×7 (02:30→20:42)
[2017-06-02] MEDS: CIPROFLOXACIN 400 MG PREMIX 200 ML IV SCH ×2 (02:31→14:51)
[2017-06-02 04:00] VITALS: BP 99/70; PULSE 105; RESP 20; TEMP 96.2; O2SAT 95
[2017-06-02] MEDS: PCA - TOTAL MG DILAUDID DELIVERED PER SHIFT OTHER SCH ×3 (05:03→20:26)
[2017-06-02] MEDS: INSULIN ASPART SUPPLEMENTAL SCALE SQ SCH ×4 (05:03→20:25)
[2017-06-02 08:00] VITALS: BP 115/74; PULSE 65; RESP 20; TEMP 98.5; O2SAT 96
[2017-06-02] MEDS: metroNIDAZOLE 500 MG INJ 100 ML IV SCH ×2 (08:43→17:05)
[2017-06-02] MEDS: SODIUM CHLORIDE 0.9% FLUSH 10 ML FLUSH IV FLUSH SCH ×2 (08:51→20:25)
--- NOTE | 2017-06-02 09:57 | HHI.PR ---
Subjective Remarks Follow up for diverticulitis, abdominal abscess. Patient is doing well. Pain is well controlled. Ambulating some. No fever, chills. No flatus or BM yet. Currently NPO. Objective Vitals Vital Signs Date Time Temp Pulse Resp B/P Pulse Ox O2 Delivery O2 Flow Rate FiO2 06/02/17 08:48 18 06/02/17 08:00 98.5 65 20 115/74 96 06/02/17 06:06 20 06/02/17 05:03 18 06/02/17 04:00 96.2 105 20 99/70 95 06/02/17 03:01 18 06/02/17 02:30 19 06/02/17 00:00 96.5 86 20 116/68 95 06/01/17 22:51 20 06/01/17 21:33 20 06/01/17 21:04 94 21 06/01/17 20:00 96.0 84 20 126/72 94 06/01/17 16:00 96.9 85 19 122/66 96 06/01/17 13:36 97 Nasal Cannula 2.00 06/01/17 12:00 97.7 82 20 120/66 96 I/O 06/01/17 06/01/17 06/01/17 06/02/17 06/02/17 06/02/17 07:00 15:00 23:00 07:00 15:00 23:00 Intake Total 835 ml 1157 ml 0 ml 383 ml 120 ml Output Total 325 ml 850 ml 550 ml Balance 510 ml 307 ml -550 ml 383 ml 120 ml Intake Oral 0 ml 360 ml 0 ml 0 ml 120 ml IV Total 835 ml 797 ml 383 ml Output Urine Total 325 ml 850 ml 550 ml # Voids 2 # Bowel Movements 0 Result Diagram: 06/01/17 0611 06/01/17 0611 Imaging Last Impressions Retroperitoneal Abscess Drainage 05/26/17 0000 Signed Impressions: Service Date/Time: Friday, May 26, 2017 15:56 - CONCLUSION: Uncomplicated CT guided drainage. The fluid was sent for stat Gram stain and culture. Jose Garcia MD FACR Abdomen/Pelvis CT 05/22/17 1022 Signed Impressions: Service Date/Time: Monday, May 22, 2017 12:28 - CONCLUSION: 1. Bowel wall thickening descending colon and induration consistent with an inflammatory process.. Underlying neoplasm excluded. 2. Evidence for previous abdominal wall surgery 3. Hiatal hernia. 4. Findings have been discussed with the referring physician. Jose Garcia MD FACR Objective Remarks GENERAL: Alert, oriented 3, NAD. SKIN: Warm and dry. HEAD: Normocephalic. EYES: No scleral icterus. No injection or drainage. NECK: Supple, trachea midline. No JVD or lymphadenopathy. CARDIOVASCULAR: Regular rate and rhythm without murmurs, gallops, or rubs. RESPIRATORY: Breath sounds equal bilaterally. No accessory muscle use. GASTROINTESTINAL: Abdomen soft, nondistended. Right side of the abdomen tender to palpation. s/p surgical changes. MUSCULOSKELETAL: No cyanosis, or edema. BACK: Nontender without obvious deformity. No CVA tenderness. Procedures Pigtail catheter drain placement by IR 05/26/2017 A/P Problem List: (1) Abdominal wall abscess ICD Code: L02.211 Status: Acute (2) Acute diverticulitis ICD Code: K57.92 Status: Acute (3) Colonic diverticular abscess ICD Code: K57.20 Status: Acute Assessment and Plan Mr. Mendez is a 57-year-old male with history of situs inversus, diverticulitis , right abdominal wall abscess s/p drain placement/removal, HTN, HLD, hiatal hernia, multiple abdominal hernia repairs with mesh, GERD, presents with a four- day history of abdominal pain. Acute Diverticulitis with Sepsis: meets sepsis criteria with +leukocytosis WBC 13.7K and tachycardia HR 94, with source diverticulitis vs abscess. Tmax 100.4. Lactic acid 0.7. CT abd/pelvis images reviewed, shows marked induration and bowel wall thickening in the descending colon; induration in abdominal wall with small abscess present; direct visualization suggested to exclude underlying neoplasm. - s/p Colonoscopy on 05/29/2017 --> descending colon inflammatory mass - possibility of malignancy. - blood cultures with NGTD - Continue antibiotics with IV Cipro/Flagyl, Diflucan. - s/p Ex Lap, descending colectomy, primary anastomosis, repair of recurrent hernia. - tumor markers ordered for concern for neoplasm, CEA markedly elevated at 350; AFP and CA 19-9 wnl. - Continue Dilaudid [employer] TE[employer]ER per Surgery. Currently NPO. Hypertension/Hyperlipidemia: chronic, stable - lisinopril 20mg BID and Pravastatin 40mg Qday. - Aspirin 81mg Qday. - Oral meds on hold. Diabetes Mellitus: last HgbA1c 6.7 on 03/17/17, much improved from previous HgbA1c 10.1 on 05/26/15 - hold patient's metformin - Continue patient's glipizide (on hold). - monitor accu-checks, cover with low dose SSI. Blood glucose well controlled. Tobacco Use: smokes 3-4 cigarettes daily - counseled on cessation - nicotine patch prn Asthma, Possible COPD with +tobacco use: chronic, not in exacerbation -continue patient's albuterol inhaler prn -incentive spirometry -encourage ambulation -Mucinex bid prn Full code. Boris Castro DO Jun 02, 2017 09:57
[2017-06-02] MEDS: LACTATED RINGER'S 1000 ML INJ 1,000 ML IV SCH ×2 (11:29→14:48)
[2017-06-02 12:00] VITALS: BP 107/64; PULSE 106; RESP 19; TEMP 96.9; O2SAT 95
--- NOTE | 2017-06-02 15:06 | HHI.PR ---
Subjective Subjective Notes Doing well Ambulating in room Reports mild nausea and some belching Objective Vitals/I&O Vital Signs Date Time Temp Pulse Resp B/P Pulse Ox O2 Delivery O2 Flow Rate FiO2 06/02/17 14:47 18 06/02/17 12:00 96.9 106 107/64 95 06/01/17 21:04 21 06/01/17 13:36 Nasal Cannula 2.00 Radiology Last Impressions Retroperitoneal Abscess Drainage 05/26/17 0000 Signed Impressions: Service Date/Time: Friday, May 26, 2017 15:56 - CONCLUSION: Uncomplicated CT guided drainage. The fluid was sent for stat Gram stain and culture. Jose Garcia MD FACR Abdomen/Pelvis CT 05/22/17 1022 Signed Impressions: Service Date/Time: Monday, May 22, 2017 12:28 - CONCLUSION: 1. Bowel wall thickening descending colon and induration consistent with an inflammatory process.. Underlying neoplasm excluded. 2. Evidence for previous abdominal wall surgery 3. Hiatal hernia. 4. Findings have been discussed with the referring physician. Jose Garcia MD FACR Cardiovascular: Regular Lungs: Clear Abdomen: Other (midline incision with ele c/d/i; prior drain site-packing removed and replaced) Extremities: No edema A/P Problem List: (1) Situs inversus (2) Dextrocardia (3) Abdominal wall abscess (4) Colonic diverticular abscess (5) Acute diverticulitis (6) Diverticulitis (7) Chronic airway obstruction (8) Diabetes mellitus (9) Obesity (10) Hepatitis C (11) History of incisional hernia repair (12) History of Margarita fundoplication (13) Sepsis Assessment and Plan 57 year old male with Meckel's diverticulum, right sided descending colonic mass /abscess; POD2 ex lap; descending colectomy; primary anastomosis; repair of recurrent incisional hernia repair - AP OPERATOR 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
[2017-06-02 16:00] VITALS: BP 128/81; PULSE 111; RESP 18; TEMP 98.1; O2SAT 95
[2017-06-02] MEDS: PANTOPRAZOLE SODIUM 40 MG VIAL IV SCH (17:14)
[2017-06-02] MEDS: FLUCONAZOLE 400 MG PREMIX BAG 200 ML IV SCH (17:14)
[2017-06-02] MEDS: ENOXAPARIN SODIUM 30 MG/0.3 ML SYRINGE SQ SCH (17:14)
--- NOTE | 2017-06-02 18:58 | HHI.GIFU ---
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 Throat is clear. NECK: Neck is supple, no JVD, no lymphadenopathy. CHEST: Chest is clear to auscultation and percussion. CARDIAC: Regular rate and rhythm with no murmur gallop or rubs. ABDOMEN: Soft, nondistended, right upper quadrant tender; no hepatosplenomegaly ; bowel sounds are present in all four quadrants. EXTREMITIES: No clubbing, cyanosis, or edema. SKIN: Normal; no rash; no jaundice. [employer] OPERATOR: No focal deficits; alert and oriented times three. Available Data (labs, X- Rays, Procedues) : Laboratory Tests Test 06/01/17 06:11 White Blood Count 11.4 TH/MM3 Red Blood Count 4.84 MIL/MM3 Hemoglobin 10.3 GM/DL Hematocrit 33.9 % Mean Corpuscular Volume 70.0 FL Mean Corpuscular Hemoglobin 21.4 PG Mean Corpuscular Hemoglobin 30.5 % Concent Red Cell Distribution Width 18.9 % Platelet Count 385 TH/MM3 Mean Platelet Volume 6.9 FL Neutrophils (%) (Auto) 86.2 % Lymphocytes (%) (Auto) 9.2 % Monocytes (%) (Auto) 3.8 % Eosinophils (%) (Auto) 0.6 % Basophils (%) (Auto) 0.2 % Neutrophils # (Auto) 9.9 TH/MM3 Lymphocytes # (Auto) 1.1 TH/MM3 Monocytes # (Auto) 0.4 TH/MM3 Eosinophils # (Auto) 0.1 TH/MM3 Basophils # (Auto) 0.0 TH/MM3 CBC Comment DIFF FINAL Differential Comment Sodium Level 139 MEQ/L Potassium Level 4.2 MEQ/L Chloride Level 104 MEQ/L Carbon Dioxide Level 27.3 MEQ/L Anion Gap 8 MEQ/L Blood Urea Nitrogen 12 MG/DL Creatinine 1.05 MG/DL Estimat Glomerular Filtration 73 ML/MIN Rate Random Glucose 120 MG/DL Calcium Level 8.2 MG/DL ASSESSMENT/PLAN: colon cancer s/p resection intraabdominal abscess s/p drainage by ir Recommendations oncology consult colonoscopy with better prep in 8-12 weeks family screening for colon cancer , consider genetic testing-sister breast cancer, nephew colon cancer at 40 gi will sign off call us as needed It was a pleasure seeing Alexx Mendez. Thank you for this consult. Entered by: Chiqui Glez MD Jun 02, 2017 18:58
[2017-06-02 20:00] VITALS: BP 120/70; PULSE 98; RESP 19; TEMP 96; O2SAT 92
[2017-06-03] VITALS: BP 109/70; PULSE 83; RESP 19; TEMP 96.1; O2SAT 91
[2017-06-03] MEDS: metroNIDAZOLE 500 MG INJ 100 ML IV SCH ×4 (00:38→23:18)
[2017-06-03] MEDS: CIPROFLOXACIN 400 MG PREMIX 200 ML IV SCH ×2 (02:07→15:03)
[2017-06-03] MEDS: HYDROmorphone HCL PCA 6 MG/30 ML IV SCH ×6 (02:14→23:20)
[2017-06-03] MEDS: PCA - TOTAL MG DILAUDID DELIVERED PER SHIFT OTHER SCH ×3 (05:05→20:54)
[2017-06-03] MEDS: LACTATED RINGER'S 1000 ML INJ 1,000 ML IV SCH ×3 (05:05→20:55)
[2017-06-03 05:13] LABS: AUTOMATED NEUTROPHIL # 2.8 TH/MM3 (1.8-7.7); BASOPHIL % 0.3 % (0.0-2.0); EOSINOPHIL # 0.2 TH/MM3 (0-0.4); EOSINOPHIL % 4.3 % (0.0-4.0); HEMATOCRIT 27.9 % (39.0-51.0); HEMO FLAGS DIFF FINAL; LYMPH % 19.1 % (9.0-44.0); LYMPHOCYTE # 0.8 TH/MM3 (1.0-4.8); MEAN CELL VOLUME 69.5 FL (80.0-100.0); MEAN CORPUSCULAR HEMOGLOBIN 21.8 PG (27.0-34.0); MEAN CORPUSCULAR HGB CONC 31.3 % (32.0-36.0); MONO % 9.2 % (0.0-8.0); NEUT % 67.1 % (16.0-70.0); PLATELET COUNT 264 TH/MM3 (150-450); RED BLOOD COUNT 4.02 MIL/MM3 (4.50-5.90); RED CELL DISTRIBUTION WIDTH 18.8 % (11.6-17.2); WHITE BLOOD COUNT 4.2 TH/MM3 (4.0-11.0)
[2017-06-03 05:41] LABS: ALT (GPT) 13 U/L (12-78); ANION GAP 9 MEQ/L (5-15); AST (GOT) 8 U/L (15-37); BICARBONATE 26.6 MEQ/L (21.0-32.0); BLOOD UREA NITROGEN 12 MG/DL (7-18); CHLORIDE 102 MEQ/L (98-107); GLOMERULAR FILTRATION RATE 85 ML/MIN (>89); POTASSIUM 3.8 MEQ/L (3.5-5.1); SODIUM (NA) 138 MEQ/L (136-145)
[2017-06-03 05:43] LABS: ALKALINE PHOSPHATASE 73 U/L (45-117); TOTAL BILIRUBIN ADULT 0.3 MG/DL (0.2-1.0)
[2017-06-03] MEDS: INSULIN ASPART SUPPLEMENTAL SCALE SQ SCH ×4 (06:07→20:53)
[2017-06-03 08:00] VITALS: BP 119/73; PULSE 79; RESP 18; TEMP 96.5; O2SAT 93
[2017-06-03] MEDS: SODIUM CHLORIDE 0.9% FLUSH 10 ML FLUSH IV FLUSH SCH ×2 (08:28→20:53)
--- NOTE | 2017-06-03 10:58 | HHI.PR ---
Subjective Subjective Notes no acute issues, passing gas, +bm recorded 1600 ice chips Objective Vitals/I&O Vital Signs Date Time Temp Pulse Resp B/P Pulse Ox O2 Delivery O2 Flow Rate FiO2 06/03/17 10:00 18 06/03/17 08:00 96.5 79 119/73 93 06/01/17 21:04 21 06/01/17 13:36 Nasal Cannula 2.00 Labs Laboratory Tests Test 06/03/17 03:49 White Blood Count 4.2 Red Blood Count 4.02 Hemoglobin 8.8 Hematocrit 27.9 Mean Corpuscular Volume 69.5 Mean Corpuscular Hemoglobin 21.8 Mean Corpuscular Hemoglobin 31.3 Concent Red Cell Distribution Width 18.8 Platelet Count 264 Mean Platelet Volume 7.1 Neutrophils (%) (Auto) 67.1 Lymphocytes (%) (Auto) 19.1 Monocytes (%) (Auto) 9.2 Eosinophils (%) (Auto) 4.3 Basophils (%) (Auto) 0.3 Neutrophils # (Auto) 2.8 Lymphocytes # (Auto) 0.8 Monocytes # (Auto) 0.4 Eosinophils # (Auto) 0.2 Basophils # (Auto) 0.0 CBC Comment DIFF FINAL Differential Comment Sodium Level 138 Potassium Level 3.8 Chloride Level 102 Carbon Dioxide Level 26.6 Anion Gap 9 Blood Urea Nitrogen 12 Creatinine 0.92 Estimat Glomerular Filtration 85 Rate Random Glucose 95 Calcium Level 8.1 Total Bilirubin 0.3 Aspartate Amino Transf 8 (AST/SGOT) Alanine Aminotransferase 13 (ALT/SGPT) Alkaline Phosphatase 73 Total Protein 5.8 Albumin 2.2 Radiology Last Impressions Retroperitoneal Abscess Drainage 05/26/17 0000 Signed Impressions: Service Date/Time: Friday, May 26, 2017 15:56 - CONCLUSION: Uncomplicated CT guided drainage. The fluid was sent for stat Gram stain and culture. Jose Garcia MD FACR Abdomen/Pelvis CT 05/22/17 1022 Signed Impressions: Service Date/Time: Monday, May 22, 2017 12:28 - CONCLUSION: 1. Bowel wall thickening descending colon and induration consistent with an inflammatory process.. Underlying neoplasm excluded. 2. Evidence for previous abdominal wall surgery 3. Hiatal hernia. 4. Findings have been discussed with the referring physician. 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
[2017-06-03] MEDS: DOCUSATE SODIUM 50 MG/SENNA 8.6 MG TAB PO SCH ×2 (11:41→20:54)
[2017-06-03 12:00] VITALS: BP 113/69; PULSE 84; RESP 17; TEMP 97.7; O2SAT 92; O2SAT 95
--- NOTE | 2017-06-03 12:43 | HHI.PR ---
Subjective Remarks This report is in ERROR Please disregard this report and all prior copies ! This report is in ERROR Please disregard this report and all prior copies ! This report is in ERROR Please disregard this report and all prior copies ! Objective Vitals Vital Signs Date Time Temp Pulse Resp B/P Pulse Ox O2 Delivery O2 Flow Rate FiO2 06/03/17 10:30 18 06/03/17 10:00 18 06/03/17 08:00 96.5 79 18 119/73 93 06/03/17 06:15 16 06/03/17 05:05 16 06/03/17 02:14 14 06/03/17 00:00 96.1 83 19 109/70 91 06/02/17 20:42 16 06/02/17 20:26 14 06/02/17 20:00 96.0 98 19 120/70 92 06/02/17 17:41 18 06/02/17 16:00 98.1 111 18 128/81 95 06/02/17 14:47 18 06/02/17 14:00 20 I/O 06/02/17 06/02/17 06/02/17 06/03/17 06/03/17 06/03/17 07:00 15:00 23:00 07:00 15:00 23:00 Intake Total 383 ml 360 ml 1364 ml 1088 ml Output Total 600 ml Balance 383 ml -240 ml 1364 ml 1088 ml Intake Oral 0 ml 360 ml 1000 ml 240 ml IV Total 383 ml 364 ml 848 ml Output Urine Total 600 ml # Voids 2 2 2 # Bowel Movements 1 1 1 Result Diagram: 06/03/17 0349 06/03/17 0349 Procedures Pigtail catheter drain placement by IR 05/26/2017 A/P Problem List: (1) Abdominal wall abscess ICD Code: L02.211 Status: Acute (2) Acute diverticulitis ICD Code: K57.92 Status: Acute (3) Colonic diverticular abscess ICD Code: K57.20 Status: Acute Assessment and Plan Mr. Mendez is a 57-year-old male with history of situs inversus, diverticulitis , right abdominal wall abscess s/p drain placement/removal, HTN, HLD, hiatal hernia, multiple abdominal hernia repairs with mesh, GERD, presents with a four- day history of abdominal pain. Acute Diverticulitis with Sepsis Meets sepsis criteria with +leukocytosis WBC 13.7K and tachycardia HR 94, with source diverticulitis vs abscess. Tmax 100.4. Lactic acid 0.7. CT abd/pelvis images reviewed, shows marked induration and bowel wall thickening in the descending colon; induration in abdominal wall with small abscess present; direct visualization suggested to exclude underlying neoplasm. S/p Colonoscopy on 05/29/2017 --> descending colon inflammatory mass - possibility of malignancy. S/p Ex Lap, descending colectomy, primary anastomosis, repair of recurrent hernia. Tumor markers ordered for concern for neoplasm, CEA markedly elevated at 350; AFP and CA 19-9 wnl. - pain control and diet per general surgery. - continue antibiotics. Hypertension/Hyperlipidemia Chronic, stable - lisinopril 20mg BID and Pravastatin 40mg Qday. - Aspirin 81mg Qday. - Oral meds on hold. Diabetes Mellitus Last HgbA1c 6.7 on 03/17/17, much improved from previous HgbA1c 10.1 on 05/26/15. - hold patient's metformin and glipizide. - monitor accu-checks, cover with low dose SSI. Blood glucose well controlled. Tobacco Use Smokes 3-4 cigarettes daily. - counseled on cessation. - nicotine patch prn. Asthma, Possible COPD with +tobacco use Chronic, not in exacerbation. - continue patient's albuterol inhaler prn. - incentive spirometry. - encourage ambulation. - Mucinex bid prn. PPx: Alistair Can DO Jun 03, 2017 12:42
--- NOTE | 2017-06-03 13:17 | HHI.PR ---
Subjective Remarks The patient said that he was tolerating his clear liquid diet. He has been having some liquidy bowel movements. He does not have any urinary discomfort. He has been coughing up some mucus. He would like his diet advanced whenever possible. Has been ambulating. Objective Vitals Vital Signs Date Time Temp Pulse Resp B/P Pulse Ox O2 Delivery O2 Flow Rate FiO2 06/03/17 12:00 97.7 84 17 113/69 92 06/03/17 10:30 18 06/03/17 10:00 18 06/03/17 08:00 96.5 79 18 119/73 93 06/03/17 06:15 16 06/03/17 05:05 16 06/03/17 02:14 14 06/03/17 00:00 96.1 83 19 109/70 91 06/02/17 20:42 16 06/02/17 20:26 14 06/02/17 20:00 96.0 98 19 120/70 92 06/02/17 17:41 18 06/02/17 16:00 98.1 111 18 128/81 95 06/02/17 14:47 18 06/02/17 14:00 20 I/O 06/02/17 06/02/17 06/02/17 06/03/17 06/03/17 06/03/17 07:00 15:00 23:00 07:00 15:00 23:00 Intake Total 383 ml 360 ml 1364 ml 1088 ml Output Total 600 ml Balance 383 ml -240 ml 1364 ml 1088 ml Intake Oral 0 ml 360 ml 1000 ml 240 ml IV Total 383 ml 364 ml 848 ml Output Urine Total 600 ml # Voids 2 2 2 # Bowel Movements 1 1 1 Result Diagram: 06/03/17 0349 06/03/17 0349 Imaging Last Impressions Retroperitoneal Abscess Drainage 05/26/17 0000 Signed Impressions: Service Date/Time: Friday, May 26, 2017 15:56 - CONCLUSION: Uncomplicated CT guided drainage. The fluid was sent for stat Gram stain and culture. Jose Garcia MD FACR Abdomen/Pelvis CT 05/22/17 1022 Signed Impressions: Service Date/Time: Monday, May 22, 2017 12:28 - CONCLUSION: 1. Bowel wall thickening descending colon and induration consistent with an inflammatory process.. Underlying neoplasm excluded. 2. Evidence for previous abdominal wall surgery 3. Hiatal hernia. 4. Findings have been discussed with the referring physician. Jose Garcia MD FACR Objective Remarks GENERAL: NAD. SKIN: Warm and dry. HEAD: Normocephalic. EYES: No scleral icterus. No injection or drainage. NECK: Supple, trachea midline. No JVD or lymphadenopathy. CARDIOVASCULAR: Regular rate and rhythm without murmurs, gallops, or rubs. RESPIRATORY: Breath sounds equal bilaterally. No accessory muscle use. GASTROINTESTINAL: Abdomen soft, nondistended. Abdominal binder in place. Mild generalized tenderness of palpation. MUSCULOSKELETAL: No cyanosis, or edema. BACK: Nontender without obvious deformity. No CVA tenderness. NEURO: No gross deficits. PSYCH: Mood and affect appropriate. Procedures Pigtail catheter drain placement by IR 05/26/2017 Medications and IVs Current Medications Medications (Trade) Dose Ordered Sig/[place] Route Start Time Stop Time Status Last Admin (NS Flush) 2 ml UNSCH PRN IV FLUSH 05/22/17 13:45 05/27/17 17:46 (NS Flush) 2 ml BID IV FLUSH 05/22/17 21:00 06/01/17 21:32 (Tylenol) 650 mg Q4H PRN PO 05/22/17 13:45 (Zofran Inj) 4 mg Q6H PRN IVP 05/22/17 13:45 05/22/17 19:09 (Narcan Inj) 0.4 mg UNSCH PRN IV 05/22/17 13:45 Lactulose 30 ml 30 ml DAILY PRN PO 05/22/17 13:45 05/26/17 08:40 Ciprofloxacin/ Dextrose 200 ml @ 200 mls/hr Q12H IV 05/22/17 15:00 06/03/17 02:07 (Flagyl 500 Mg Inj) 100 ml @ 100 mls/hr Q8H IV 05/22/17 16:00 06/03/17 08:27 (Ventolin Hfa Inh) 1 puff Q4H PRN INH 05/22/17 15:00 (Prinivil) 20 mg BID PO 05/22/17 21:00 Hold 05/31/17 09:21 (Pravachol) 40 mg DAILY PO 05/23/17 09:00 Hold 05/31/17 09:21 (Habitrol 7 Mg Patch.24 Hr) 1 patch DAILY PRN T-DERMAL 05/22/17 15:00 (Mucinex Er) 600 mg BID PRN PO 05/22/17 15:15 (Glucotrol) 5 mg DAILY PO 05/23/17 10:00 Hold 05/30/17 08:02 (D50w (Vial) Inj) 50 ml UNSCH PRN IV 05/23/17 10:00 (Glucagon Inj) 1 mg UNSCH PRN OTHER 05/23/17 10:00 (Dilaudid Pf Inj) 1 mg Q3H PRN IV PUSH 05/24/17 13:32 05/31/17 13:07 (Tylenol) 500 mg Q6H PRN PO 05/24/17 11:45 (Aspirin) 81 mg DAILY PO 05/25/17 09:00 Hold 05/30/17 08:01 (Protonix) 40 mg DAILY PO 05/25/17 09:00 Hold 05/31/17 09:21 DELIMER Dosage Infused (Pha) 1 Q8HR OTHER 05/31/17 22:00 06/03/17 05:05 Hydromorphone HCl 6 mg 6 mg UNSCH IV 05/31/17 17:30 06/03/17 10:00 (Lr 1000 ml Inj) 1,000 ml @ 100 mls/hr Q10H IV 05/31/17 17:22 06/03/17 08:27 Pantoprazole Sodium 40 mg 40 mg Q24H IV 05/31/17 18:00 06/02/17 17:14 (Diflucan 400 Mg Premix Bag) 200 ml @ 100 mls/hr Q24H IV 05/31/17 18:00 06/02/17 17:14 (Lovenox Inj) 30 mg Q24H SQ 06/01/17 17:00 06/02/17 17:14 (Raven-Colace) 1 tab BID PO 06/03/17 11:00 06/03/17 11:41 A/P Problem List: (1) Abdominal wall abscess ICD Code: L02.211 Status: Acute (2) Acute diverticulitis ICD Code: K57.92 Status: Acute (3) Colonic diverticular abscess ICD Code: K57.20 Status: Acute Assessment and Plan Mr. Mendez is a 57-year-old male with history of situs inversus, diverticulitis , right abdominal wall abscess s/p drain placement/removal, HTN, HLD, hiatal hernia, multiple abdominal hernia repairs with mesh, GERD, presents with a four- day history of abdominal pain. Acute Diverticulitis with Sepsis Meets sepsis criteria with +leukocytosis WBC 13.7K and tachycardia HR 94, with source diverticulitis vs abscess. Tmax 100.4. Lactic acid 0.7. CT abd/pelvis images reviewed, shows marked induration and bowel wall thickening in the descending colon; induration in abdominal wall with small abscess present; direct visualization suggested to exclude underlying neoplasm. S/p Colonoscopy on 05/29/2017 --> descending colon inflammatory mass - possibility of malignancy. S/p Ex Lap, descending colectomy, primary anastomosis, repair of recurrent hernia. Tumor markers ordered for concern for neoplasm, CEA markedly elevated at 350; AFP and CA 19-9 wnl. Pathology reveals invasive adenocarcinoma. - pain control and diet per general surgery. - continue antibiotics. - Oncology consult pending. - Encourage ambulation. Hypertension/Hyperlipidemia Chronic, stable - lisinopril 20mg BID and Pravastatin 40mg Qday. - Aspirin 81mg Qday. - Oral meds on hold. Diabetes Mellitus Last HgbA1c 6.7 on 03/17/17, much improved from previous HgbA1c 10.1 on 05/26/15. - hold patient's metformin and glipizide. - monitor accu-checks, cover with low dose SSI. Blood glucose well controlled. Tobacco Use Smokes 3-4 cigarettes daily. - counseled on cessation. - nicotine patch prn. Asthma, Possible COPD with +tobacco use Chronic, not in exacerbation. - continue patient's albuterol inhaler prn. - incentive spirometry. - encourage ambulation. - Mucinex bid prn. Anemia Exacerbated by surgery. - Hematology consult pending. PPx: SCDs Discharge Planning Awaiting surgical clearance Alistair Galo DO Jun 03, 2017 13:17
--- NOTE | 2017-06-03 13:25 | MB ---
cc: ANTONIA GORE M.D. DATE OF CONSULTATION: 06/03/2017. REASON FOR CONSULTATION: Oncology was consulted to render opinion regarding a patient with newly diagnosed colon cancer. CONSULTING PHYSICIAN: Dr. Funez. HISTORY OF PRESENT ILLNESS: The patient is a 57-year-old male with history of diverticulitis admitted to the hospital multiple times over last six months due to perforated diverticulitis and abscess. He was treated with drainage and antibiotics. Apparently he was not able to follow up as an outpatient because of lack of insurance. He was supposed to have outpatient colonoscopy and further evaluation. He stated he was just let go from his job and he could not get insurance. He re-presented to the hospital with increased right-sided abdominal pain. He also noticed swelling of the right abdomen. He stated it is the same feeling as his previous diverticulitis. He had nausea without significant vomiting. CT showed thickening of the descending colon consistent with inflammatory process. He had a CT-guided drainage of the abscess again May 26 and he underwent colonoscopy May 29, which showed inflammatory mass in the descending colon partially obstructing. On May 31, he underwent exploratory laparotomy and was found to have a large mass in the descending colon. He underwent descending colectomy and a re-anastomosis. He also had incision and drainage of a right abdominal wall abscess. He has recovered well from surgery. He denies any fever or chills. He denies any recent weight loss. He denies any chest pain. He has baseline dyspnea on exertion due to COPD. He has occasional cough. Denies change urinary habits. Denies any bone pain. PAST MEDICAL HISTORY: His past medical history is significant for: 1. Situs inversus. 2. Diverticulitis. 3. Right abdominal wall abscess. 4. Hypertension. 5. Hyperlipidemia. 6. Hiatal hernia. 7. Gastroesophageal reflux disease (GERD). 8. COPD. PAST SURGICAL HISTORY: 1. Incision and drainage of abdominal wall abscess. 2. Multiple hiatal hernia repairs. FAMILY HISTORY: One sister had breast cancer but she is in remission. Her sister's son had colon cancer at age 41. The patient has three sisters, one sister is . One brother is alive and he has two sons both healthy. SOCIAL HISTORY: He smoked on and off for many years. He is now down to about three to four cigarettes a day. He usually drinks heavily but now he only drinks occasionally. ALLERGIES: NO KNOWN DRUG ALLERGIES. CURRENT MEDICATIONS: 1. Lovenox. 2. Protonix. 3. Diflucan. 4. Dilaudid. 5. Flagyl. 6. Cipro. REVIEW OF SYSTEMS: CONSTITUTIONAL: As above. EYES: Denies any blurry vision or double vision. ENT: Denies any mouth sores or voice changes. CARDIOVASCULAR: Denies any chest pressure or palpitations. RESPIRATORY: As above. GI: As above. : Denies any dysuria or hematuria. MUSCULOSKELETAL: Negative. HEMATOLOGIC: As above. ENDOCRINE: Negative. DERMATOLOGIC: Negative. PSYCHIATRIC: Negative. NEUROLOGIC: Negative. PHYSICAL EXAMINATION: VITAL SIGNS: Temperature and 96.5, blood pressure 11[birth year]/1972, O2 saturation 93% on room air. GENERAL: He is alert and oriented x3 and in no acute distress. HEAD, EYES, EARS, NOSE, THROAT: Atraumatic, normocephalic. Pupils equal, round, reactive to light. Extraocular muscles intact. No scleral icterus. OROPHARYNX: Moist mucosa. No lesions. No thrush. No mucositis. NECK: No thyromegaly. No palpable mass. LYMPHATIC: No palpable cervical, clavicular, axillary or inguinal lymph nodes. CARDIOVASCULAR: Regular S1-S2. No murmur. LUNGS: Clear to auscultation bilaterally. No wheezing or rhonchi. ABDOMEN: Abdomen soft. Dressing is dry. Hypoactive bowel sounds. EXTREMITIES: No cyanosis or clubbing. No edema. BACK: No paravertebral tenderness. SKIN: No rash or petechiae. NEUROLOGIC EXAM: Nonfocal. LABORATORY DATA: CEA of 350. ASSESSMENT: 1. Colon adenocarcinoma. He has a history of perforated diverticulitis and had a right abdominal wall abscess. He had multiple incision and drainages. He had a CT scan done May 22 which showed thickening of the descending colon with induration. He underwent colonoscopy May 29 and was found to have an inflammatory mass in the descending colon almost obstructing the lumen. He underwent exploratory laparotomy and was found to have a large mass in the descending colon. He had a descending colectomy with reanastomosis. He also had incision and drainage of the right abdominal wall abscess. Final pathology showed a mucinous adenocarcinoma measuring 8.5 x 7.0 x 2.5 cm. No macroscopic perforation noted. The tumor was moderately differentiated with negative margins. No lymphovascular invasion or perineural invasion noted. Thirteen lymph nodes were all negative. Pathologic stage T3 N0 MX or stage IIA. CEA was markedly elevated at 350. I had extensive discussion with the patient regarding the pathologic findings, diagnoses, staging, prognosis and treatment options. At this time, I recommend getting a CT of the chest to complete the staging. This colon cancer appears to be localized. Normally I do not recommend adjuvant chemotherapy for stage IIA cancer; however, in this case, I am not sure if the abdominal abscess is anywhere near the colon cancer and I am not sure if the colon cancer has caused the perforated diverticulitis and forming the abscess. If that is the case, then it would be considered high risk and I would recommend adjuvant chemotherapy. I will discuss further with the surgeon. The tumor itself has no high risk features. I am also going to have pathology do a KRAS, BRAF and MSI study. I discussed this with the patient and his questions were answered. 2. Family history of breast cancer and colon cancer. He has a sister with breast cancer. Her son was diagnosed with colon cancer at age 41. Will check an MSI study on the patient's tumor. Will consider doing genetic testing if he is eligible. 3. Recurrent abdominal wall abscess due to perforated diverticulitis, as above. 4. Situs inversus. 5. Hypertension. 6. Hyperlipidemia. 7. Gastroesophageal reflux disease (GERD). 8. COPD. PLAN: 1. Extensive discussion with the patient as above. 2. I am going to discuss case further with the surgeon. 3. Get CT of the chest to complete staging. 4. He will need followup at oncology clinic. 5. Will decide whether he needs adjuvant chemotherapy after I have a chance to discuss with the surgeon. Thank you Dr. Funez for asking me to see this patient. MD MARYAM Eagle/MARIA D /10:08 AM /1:03 PM DAVID
[2017-06-03 16:00] VITALS: BP 148/88; PULSE 77; RESP 16; TEMP 96.6; O2SAT 95
[2017-06-03] MEDS: PANTOPRAZOLE SODIUM 40 MG VIAL IV SCH (17:35)
[2017-06-03] MEDS: FLUCONAZOLE 400 MG PREMIX BAG 200 ML IV SCH (17:35)
[2017-06-03] MEDS: ENOXAPARIN SODIUM 30 MG/0.3 ML SYRINGE SQ SCH (17:35)
[2017-06-03 20:18] VITALS: BP 119/83; PULSE 96; RESP 18; TEMP 98; O2SAT 96
[2017-06-04] VITALS (7 sets, daily range): BP systolic 128–168; BP diastolic 77–90; PULSE 62–106; RESP 16–20; TEMP 96.1–98.1; O2SAT 92–100
[2017-06-04] MEDS: CIPROFLOXACIN 400 MG PREMIX 200 ML IV SCH ×2 (01:09→13:45)
[2017-06-04] MEDS: PCA - TOTAL MG DILAUDID DELIVERED PER SHIFT OTHER SCH ×2 (04:52→13:46)
[2017-06-04] MEDS: INSULIN ASPART SUPPLEMENTAL SCALE SQ SCH ×4 (04:52→19:50)
[2017-06-04] MEDS: HYDROmorphone HCL PCA 6 MG/30 ML IV SCH ×3 (04:53→14:26)
--- NOTE | 2017-06-04 08:11 | PD.ONC.PN ---
Subjective Subjective Remarks Afebrile overnight. Patient resting in bed in nad. slept ok last night. Pain controlled hoping to eat today Objective Data Date Time Temp Pulse Resp B/P Pulse Ox O2 Delivery O2 Flow Rate FiO2 06/04/17 04:53 18 06/04/17 04:52 18 06/04/17 00:03 96.1 99 20 128/77 98 06/03/17 23:20 18 06/03/17 20:54 18 06/03/17 20:18 98.0 96 18 119/83 96 06/03/17 17:41 19 06/03/17 16:00 96.6 77 16 148/88 95 06/03/17 15:07 19 06/03/17 14:00 18 06/03/17 12:00 95 Nasal Cannula 2.00 06/03/17 12:00 97.7 84 17 113/69 92 06/03/17 10:30 18 06/03/17 10:00 18 06/04/17 06/04/17 06/04/17 06:59 14:59 22:59 Intake Total 1205 ml Balance 1205 ml Result Diagram: 06/03/17 0349 06/03/17 0349 Administered Medications Medications (Trade) Dose Ordered Sig/[place] Route PRN Reason Start Time Stop Time Status Last Admin Dose Admin Sodium Chloride (NS Flush) 2 ml UNSCH PRN IV FLUSH FLUSH AFTER USING IV ACCESS 05/22/17 13:45 05/27/17 17:46 Sodium Chloride (NS Flush) 2 ml BID IV FLUSH 05/22/17 21:00 06/01/17 21:32 Ondansetron HCl (Zofran Inj) 4 mg Q6H PRN IVP NAUSEA OR VOMITING 05/22/17 13:45 05/22/17 19:09 Lactulose 30 ml 30 ml DAILY PRN PO SEVERE CONSITIPATION 05/22/17 13:45 05/26/17 08:40 Ciprofloxacin/ Dextrose 200 ml @ 200 mls/hr Q12H IV 05/22/17 15:00 06/04/17 01:09 Metronidazole (Flagyl 500 Mg Inj) 100 ml @ 100 mls/hr Q8H IV 05/22/17 16:00 06/03/17 23:18 Lisinopril (Prinivil) 20 mg BID PO 05/22/17 21:00 Hold 05/31/17 09:21 Pravastatin Sodium (Pravachol) 40 mg DAILY PO 05/23/17 09:00 Hold 05/31/17 09:21 Glipizide (Glucotrol) 5 mg DAILY PO 05/23/17 10:00 Hold 05/30/17 08:02 Hydromorphone HCl (Dilaudid Pf Inj) 1 mg Q3H PRN IV PUSH BREAKTHROUGH PAIN 05/24/17 13:32 05/31/17 13:07 Aspirin (Aspirin) 81 mg DAILY PO 05/25/17 09:00 Hold 05/30/17 08:01 Pantoprazole Sodium (Protonix) 40 mg DAILY PO 05/25/17 09:00 Hold 05/31/17 09:21 FINANCIAL PLANNING CONSULTANT Dosage Infused (Pha) 1 Q8HR OTHER 05/31/17 22:00 06/04/17 04:52 Hydromorphone HCl 6 mg 6 mg UNSCH IV 05/31/17 17:30 06/04/17 04:53 Lactated Ringer's (Lr 1000 ml Inj) 1,000 ml @ 100 mls/hr Q10H IV 05/31/17 17:22 06/03/17 20:55 Pantoprazole Sodium 40 mg 40 mg Q24H IV 05/31/17 18:00 06/03/17 17:35 Fluconazole/ Sodium Chloride (Diflucan 400 Mg Premix Bag) 200 ml @ 100 mls/hr Q24H IV 05/31/17 18:00 06/03/17 17:35 Enoxaparin Sodium (Lovenox Inj) 30 mg Q24H SQ 06/01/17 17:00 06/03/17 17:35 Senna/Docusate Sodium (Raven-Colace) 1 tab BID PO 06/03/17 11:00 06/03/17 11:41 Objective Remarks GENERAL: Middle aged male supine in bed in nad. SKIN: Warm and dry. HEAD: Normocephalic. EYES: No scleral icterus. No injection or drainage. NECK: Supple, trachea midline. CARDIOVASCULAR: Regular rate and rhythm RESPIRATORY: Breath sounds equal bilaterally. No accessory muscle use. GASTROINTESTINAL: Abdomen soft, incision site clean without bleeding. mildly tender around incision sites EXTREMITIES: No cyanosis NEUROLOGICAL: No obvious focal deficit. Awake, alert, and oriented x3. Assessment/Plan Problem List: (1) Adenocarcinoma, colon Status: Acute Plan: --will obtain CT chest to complete the staging. --has a history of perforated diverticulitis and had a right abdominal wall abscess. He had multiple incision and drainages. He had --CT ab. May 22 --> showed thickening of the descending colon with induration. --colonoscopy May 29 -->found to have an inflammatory mass in the descending colon almost obstructing the lumen. --ex. lap--> large mass in the descending colon. +descending colectomy with reanastomosis. +incision and drainage of the right abdominal wall abscess. -- Final pathology showed a mucinous adenocarcinoma measuring 8.5 x 7.0 x 2.5 cm. No macroscopic perforation noted. +moderately differentiated with negative margins. No lymphovascular invasion or perineural invasion noted. ---- LN negative. Pathologic stage T3 N0 MX or stage IIA. Recommendations for systemic therapy: colon cancer appears to be localized. Normally I do not recommend adjuvant chemotherapy for stage IIA cancer; however , in this case, I am not sure if the abdominal abscess is anywhere near the colon cancer and I am not sure if the colon cancer has caused the perforated diverticulitis and forming the abscess. If that is the case, then it would be considered high risk and I would recommend adjuvant chemotherapy. will discuss further with the surgeon. The tumor itself has no high risk features. also going to have pathology do a KRAS, BRAF and MSI study. --patient also with family history of breast cancer and colon cancer. He has a sister with breast cancer. Her son was diagnosed with colon cancer at age 41. Will check an MSI study on the patient's tumor. Will consider doing genetic testing if he is eligible. Assessment 57y/o male with newly diagnosed colon cancer. h/o Situs inversus. Diverticulitis. Right abdominal wall abscess. Hypertension. Hyperlipidemia. Hiatal hernia. Gastroesophageal reflux disease (GERD). COPD. Plan 1. obtain CT chest to complete staging. 2. fax fs to new patient referrals for follow up Attending Statement The exam, history, and the medical decision-making described in the above note were completed with the assistance of the mid-level provider. I reviewed and agree with the findings presented. I attest that I had a [id number] encounter with the patient on the same day, and personally performed and documented my assessment and findings in the medical record. Recovering well. CT chest showed no mets disease. Will need f/u oncology clinic. Will decide if he needs adjuvant chemo after I have a chance to discuss with . Liana Garner Jun 04, 2017 08:11 Jorge Rose MD Jun 04, 2017 12:14
[2017-06-04] MEDS: DOCUSATE SODIUM 50 MG/SENNA 8.6 MG TAB PO SCH ×2 (08:28→19:46)
[2017-06-04] MEDS: metroNIDAZOLE 500 MG INJ 100 ML IV SCH ×2 (08:29→14:27)
[2017-06-04] MEDS: SODIUM CHLORIDE 0.9% FLUSH 10 ML FLUSH IV FLUSH SCH ×2 (08:29→19:47)
[2017-06-04] MEDS ORDERED: IOHEXOL 350 MG/ML 10 ML VIAL (for RAD DIAG) IV ONE (09:41)
--- NOTE | 2017-06-04 09:53 | RADRPT ---
EXAM DATE/TIME: 06/04/2017 09:31 [facility] COMPARISON: CT ABDOMEN & PELVIS W CONTRAST, May 22, 2017, 12:28. INDICATIONS : Metastases. Colon cancer. IV CONTRAST: 70 cc Omnipaque 350 (iohexol) IV RADIATION DOSE: 9.21 CTDIvol (mGy) MEDICAL HISTORY : Hypertension. Diverticulitis. Stroke SURGICAL HISTORY : Hiatal Hernia ENCOUNTER: Initial ACUITY: 1 day PAIN SCALE: 0/10 LOCATION: chest TECHNIQUE: Volumetric scanning of the chest was performed. Using automated exposure control and adjustment of t he mA and/or kV according to patient size, radiation dose was kept as low as reasonably achievable to obtain optimal diagnostic quality images. DICOM format image data is available electronically for review and comparison. Follow-up recommendations for incidentally detected pulmonary nodules are based at a minimum on nodul e size and patient risk factors according to Fleischner Society Guidelines. FINDINGS: LUNGS: There is mild centrilobular emphysema. Linear opacities in the lower lobes bilaterally likely represe nt atelectasis. No pulmonary nodules are visualized. PLEURA: There is no pleural thickening or pleural effusion. MEDIASTINUM: There is situs inversus with a right-sided aortic arch. No lymphadenopathy is visualized. AXILLAE: Within normal limits. No lymphadenopathy. SKELETAL: There are degenerative changes of the thoracic spine. No lytic or blastic lesion is seen. MISCELLANEOUS: There is abdominal situs inversus. Moderate size hiatal hernia is present. CONCLUSION: 1. There are no findings to indicate metastatic disease within the chest. 2. Nonacute findings include situs inversus, moderate size hiatal hernia, and mild emphysema. Rob Oleary MD on June 04, 2017 at 9:48 Board Certified Radiologist. This report was verified electronically.
--- NOTE | 2017-06-04 10:09 | HHI.PR ---
Subjective Remarks The patient was ambulating without difficulty. He said he just got a CT scan done. He was hopeful that the cancer did not spread past the colon. He wants to take a shower. Objective Vitals Vital Signs Date Time Temp Pulse Resp B/P Pulse Ox O2 Delivery O2 Flow Rate FiO2 06/04/17 08:00 97.3 62 16 132/80 98 06/04/17 04:53 18 06/04/17 04:52 18 06/04/17 00:03 96.1 99 20 128/77 98 06/03/17 23:20 18 06/03/17 20:54 18 06/03/17 20:18 98.0 96 18 119/83 96 06/03/17 17:41 19 06/03/17 16:00 96.6 77 16 148/88 95 06/03/17 15:07 19 06/03/17 14:00 18 06/03/17 12:00 95 Nasal Cannula 2.00 06/03/17 12:00 97.7 84 17 113/69 92 06/03/17 10:30 18 I/O 06/03/17 06/03/17 06/03/17 06/04/17 06/04/17 06/04/17 07:00 15:00 23:00 07:00 15:00 23:00 Intake Total 1088 ml 1680 ml 1205 ml 1205 ml Balance 1088 ml 1680 ml 1205 ml 1205 ml Intake Oral 240 ml 1680 ml 480 ml 480 ml IV Total 848 ml 725 ml 725 ml # Voids 2 2 2 2 # Bowel Movements 1 0 Result Diagram: 06/03/17 0349 06/03/17 0349 Imaging Last Impressions Chest CT 06/04/17 0000 Signed Impressions: Service Date/Time: Sunday, June 04, 2017 09:31 - CONCLUSION: 1. There are no findings to indicate metastatic disease within the chest. 2. Nonacute findings include situs inversus, moderate size hiatal hernia, and mild emphysema. Rob Oleary MD Retroperitoneal Abscess Drainage 05/26/17 0000 Signed Impressions: Service Date/Time: Friday, May 26, 2017 15:56 - CONCLUSION: Uncomplicated CT guided drainage. The fluid was sent for stat Gram stain and culture. Jose Garcia MD FACR Abdomen/Pelvis CT 05/22/17 1022 Signed Impressions: Service Date/Time: Monday, May 22, 2017 12:28 - CONCLUSION: 1. Bowel wall thickening descending colon and induration consistent with an inflammatory process.. Underlying neoplasm excluded. 2. Evidence for previous abdominal wall surgery 3. Hiatal hernia. 4. Findings have been discussed with the referring physician. Jose Garcia MD FACR Objective Remarks GENERAL: NAD. SKIN: Warm and dry. HEAD: Normocephalic. EYES: No scleral icterus. No injection or drainage. NECK: Supple, trachea midline. No JVD or lymphadenopathy. CARDIOVASCULAR: Regular rate and rhythm without murmurs, gallops, or rubs. RESPIRATORY: Breath sounds equal bilaterally. No accessory muscle use. GASTROINTESTINAL: Abdomen soft, nondistended. Abdominal binder in place. Mild generalized tenderness of palpation. MUSCULOSKELETAL: No cyanosis, or edema. BACK: Nontender without obvious deformity. No CVA tenderness. NEURO: No gross deficits. PSYCH: Mood and affect appropriate. Procedures Pigtail catheter drain placement by IR 05/26/2017 Medications and IVs Current Medications Medications (Trade) Dose Ordered Sig/[place] Route Start Time Stop Time Status Last Admin (NS Flush) 2 ml UNSCH PRN IV FLUSH 05/22/17 13:45 05/27/17 17:46 (NS Flush) 2 ml BID IV FLUSH 05/22/17 21:00 06/01/17 21:32 (Tylenol) 650 mg Q4H PRN PO 05/22/17 13:45 (Zofran Inj) 4 mg Q6H PRN IVP 05/22/17 13:45 05/22/17 19:09 (Narcan Inj) 0.4 mg UNSCH PRN IV 05/22/17 13:45 Lactulose 30 ml 30 ml DAILY PRN PO 05/22/17 13:45 05/26/17 08:40 Ciprofloxacin/ Dextrose 200 ml @ 200 mls/hr Q12H IV 05/22/17 15:00 06/04/17 01:09 (Flagyl 500 Mg Inj) 100 ml @ 100 mls/hr Q8H IV 05/22/17 16:00 06/04/17 08:29 (Ventolin Hfa Inh) 1 puff Q4H PRN INH 05/22/17 15:00 (Prinivil) 20 mg BID PO 05/22/17 21:00 Hold 05/31/17 09:21 (Pravachol) 40 mg DAILY PO 05/23/17 09:00 Hold 05/31/17 09:21 (Habitrol 7 Mg Patch.24 Hr) 1 patch DAILY PRN T-DERMAL 05/22/17 15:00 (Mucinex Er) 600 mg BID PRN PO 05/22/17 15:15 (Glucotrol) 5 mg DAILY PO 05/23/17 10:00 Hold 05/30/17 08:02 (D50w (Vial) Inj) 50 ml UNSCH PRN IV 05/23/17 10:00 (Glucagon Inj) 1 mg UNSCH PRN OTHER 05/23/17 10:00 (Dilaudid Pf Inj) 1 mg Q3H PRN IV PUSH 05/24/17 13:32 05/31/17 13:07 (Tylenol) 500 mg Q6H PRN PO 05/24/17 11:45 (Aspirin) 81 mg DAILY PO 05/25/17 09:00 Hold 05/30/17 08:01 (Protonix) 40 mg DAILY PO 05/25/17 09:00 Hold 05/31/17 09:21 CONTACT MANAGER Dosage Infused (Pha) 1 Q8HR OTHER 05/31/17 22:00 06/04/17 04:52 Hydromorphone HCl 6 mg 6 mg UNSCH IV 05/31/17 17:30 06/04/17 04:53 (Lr 1000 ml Inj) 1,000 ml @ 100 mls/hr Q10H IV 05/31/17 17:22 06/03/17 20:55 Pantoprazole Sodium 40 mg 40 mg Q24H IV 05/31/17 18:00 06/03/17 17:35 (Diflucan 400 Mg Premix Bag) 200 ml @ 100 mls/hr Q24H IV 05/31/17 18:00 06/03/17 17:35 (Lovenox Inj) 30 mg Q24H SQ 06/01/17 17:00 06/03/17 17:35 (Raven-Colace) 1 tab BID PO 06/03/17 11:00 06/04/17 08:28 A/P Problem List: (1) Abdominal wall abscess ICD Code: L02.211 Status: Acute (2) Acute diverticulitis ICD Code: K57.92 Status: Acute (3) Colonic diverticular abscess ICD Code: K57.20 Status: Acute Assessment and Plan Mr. Mendez is a 57-year-old male with history of situs inversus, diverticulitis , right abdominal wall abscess s/p drain placement/removal, HTN, HLD, hiatal hernia, multiple abdominal hernia repairs with mesh, GERD, presents with a four- day history of abdominal pain. Acute Diverticulitis/ Colon adenocarcinoma Meets sepsis criteria with +leukocytosis WBC 13.7K and tachycardia HR 94, with source diverticulitis vs abscess. Tmax 100.4. Lactic acid 0.7. CT abd/pelvis images reviewed, shows marked induration and bowel wall thickening in the descending colon; induration in abdominal wall with small abscess present; direct visualization suggested to exclude underlying neoplasm. S/p Colonoscopy on 05/29/2017 --> descending colon inflammatory mass - possibility of malignancy. Tumor markers ordered for concern for neoplasm, CEA markedly elevated at 350; AFP and CA 19-9 wnl. S/p Ex Lap, descending colectomy, primary anastomosis, repair of recurrent hernia. Pathology reveals invasive adenocarcinoma. Oncology consult appreciated. CT chest without evidence of metastatic disease. - pain control and diet per general surgery. - continue antibiotics. - Oncology following. - Encourage ambulation. Hypertension/Hyperlipidemia Chronic, stable - lisinopril 20mg BID on hold as blood pressure has been normal. - resume pravastatin 40mg Qday. - resume aspirin 81mg Qday when OK by surgery. Diabetes Mellitus Last HgbA1c 6.7 on 03/17/17, much improved from previous HgbA1c 10.1 on 05/26/15. - hold patient's metformin and glipizide. - monitor accu-checks, cover with low dose SSI. Blood glucose well controlled 06/04. Tobacco Use Smokes 3-4 cigarettes daily. - counseled on cessation. - nicotine patch prn. Asthma, Possible COPD with +tobacco use Chronic, not in exacerbation. - continue patient's albuterol inhaler prn. - incentive spirometry. - encourage ambulation. - Mucinex bid prn. Anemia Exacerbated by surgery. - follow CBC and transfuse as needed. PPx: SCDs Discharge Planning Awaiting surgical clearance Alistair Galo DO Jun 04, 2017 10:09
[2017-06-04] MEDS: LACTATED RINGER'S 1000 ML INJ 1,000 ML IV SCH ×2 (11:22→19:50)
--- NOTE | 2017-06-04 14:47 | HHI.PR ---
Subjective Subjective Notes DAILY PROGRESS NOTE FOR SURGICAL ATTENDING, DR. JIGAR LAU Tolerating diet Positive bowel movement Pain under control Objective Vitals/I&O Vital Signs Date Time Temp Pulse Resp B/P Pulse Ox O2 Delivery O2 Flow Rate FiO2 06/04/17 12:00 98.1 106 19 144/84 92 06/03/17 12:00 Nasal Cannula 2.00 06/01/17 21:04 21 Labs Laboratory Tests Test 05/31/17 06/03/17 14:00 03:49 Blood Type A POSITIVE Antibody Screen NEGATIVE White Blood Count 4.2 TH/MM3 Red Blood Count 4.02 MIL/MM3 Hemoglobin 8.8 GM/DL Hematocrit 27.9 % Mean Corpuscular Volume 69.5 FL Mean Corpuscular Hemoglobin 21.8 PG Mean Corpuscular Hemoglobin 31.3 % Concent Red Cell Distribution Width 18.8 % Platelet Count 264 TH/MM3 Mean Platelet Volume 7.1 FL Neutrophils (%) (Auto) 67.1 % Lymphocytes (%) (Auto) 19.1 % Monocytes (%) (Auto) 9.2 % Eosinophils (%) (Auto) 4.3 % Basophils (%) (Auto) 0.3 % Neutrophils # (Auto) 2.8 TH/MM3 Lymphocytes # (Auto) 0.8 TH/MM3 Monocytes # (Auto) 0.4 TH/MM3 Eosinophils # (Auto) 0.2 TH/MM3 Basophils # (Auto) 0.0 TH/MM3 CBC Comment DIFF FINAL Differential Comment Sodium Level 138 MEQ/L Potassium Level 3.8 MEQ/L Chloride Level 102 MEQ/L Carbon Dioxide Level 26.6 MEQ/L Anion Gap 9 MEQ/L Blood Urea Nitrogen 12 MG/DL Creatinine 0.92 MG/DL Estimat Glomerular Filtration 85 ML/MIN Rate Random Glucose 95 MG/DL Calcium Level 8.1 MG/DL Total Bilirubin 0.3 MG/DL Aspartate Amino Transf 8 U/L (AST/SGOT) Alanine Aminotransferase 13 U/L (ALT/SGPT) Alkaline Phosphatase 73 U/L Total Protein 5.8 GM/DL Albumin 2.2 GM/DL Radiology Last Impressions Retroperitoneal Abscess Drainage 05/26/17 0000 Signed Impressions: Service Date/Time: Friday, May 26, 2017 15:56 - CONCLUSION: Uncomplicated CT guided drainage. The fluid was sent for stat Gram stain and culture. Jose Garcia MD FACR Abdomen/Pelvis CT 05/22/17 1022 Signed Impressions: Service Date/Time: Monday, May 22, 2017 12:28 - CONCLUSION: 1. Bowel wall thickening descending colon and induration consistent with an inflammatory process.. Underlying neoplasm excluded. 2. Evidence for previous abdominal wall surgery 3. Hiatal hernia. 4. Findings have been discussed with the referring physician. 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 Jorge Rose seeing the patient Advance diet wean IV pain medicine anticipate discharge in the next 24-48 hours Problem Qualifiers (1) Diverticulitis: (2) Chronic airway obstruction: Qualified Code: J41.0 - Simple chronic bronchitis (3) Diabetes mellitus: (4) Obesity: (5) Hepatitis C: Qualified Code: B18.2 - Chronic hepatitis C without hepatic coma Jigar Lau MD Jun 04, 2017 14:47
[2017-06-04] MEDS ORDERED: ACETAMINOPHEN/HYDROcodone 325 MG/5 MG TAB PO PRN (15:00)
[2017-06-04] MEDS: PANTOPRAZOLE SODIUM 40 MG VIAL IV SCH (17:13)
[2017-06-04] MEDS: ENOXAPARIN SODIUM 30 MG/0.3 ML SYRINGE SQ SCH (17:13)
[2017-06-04] MEDS: FLUCONAZOLE 400 MG PREMIX BAG 200 ML IV SCH (17:14)
[2017-06-04] MEDS: oxyCODONE/ACETAMINOPHEN 10 MG/325 MG TAB PO PRN (21:01)
[2017-06-04] MEDS: HYDROmorphone HCL PF 1 MG/ML VIAL IV PUSH PRN (22:00)
[2017-06-05 00:02] VITALS: BP 158/80; PULSE 78; RESP 18; TEMP 97.2; O2SAT 97
[2017-06-05] MEDS: oxyCODONE/ACETAMINOPHEN 10 MG/325 MG TAB PO PRN ×6 (00:55→20:53)
[2017-06-05] MEDS: metroNIDAZOLE 500 MG INJ 100 ML IV SCH ×2 (00:55→08:28)
[2017-06-05] MEDS: HYDROmorphone HCL PF 1 MG/ML VIAL IV PUSH PRN ×6 (02:02→21:50)
[2017-06-05] MEDS: CIPROFLOXACIN 400 MG PREMIX 200 ML IV SCH (02:03)
[2017-06-05] MEDS: INSULIN ASPART SUPPLEMENTAL SCALE SQ SCH ×4 (06:04→20:54)
[2017-06-05 07:22] LABS: MEAN CELL VOLUME 67.9 FL (80.0-100.0); MEAN CORPUSCULAR HEMOGLOBIN 22.2 PG (27.0-34.0); MEAN CORPUSCULAR HGB CONC 32.7 % (32.0-36.0); PLATELET COUNT 267 TH/MM3 (150-450); RED BLOOD COUNT 3.98 MIL/MM3 (4.50-5.90); RED CELL DISTRIBUTION WIDTH 19.1 % (11.6-17.2); REVIEW FLAG FINAL; WHITE BLOOD COUNT 4.4 TH/MM3 (4.0-11.0)
--- NOTE | 2017-06-05 07:29 | PD.ONC.PN ---
Subjective Subjective Remarks Feeling better, Tolerated small amount PO yesterday. Objective Data Date Time Temp Pulse Resp B/P Pulse Ox O2 Delivery O2 Flow Rate FiO2 06/05/17 06:05 18 06/05/17 00:02 97.2 78 18 158/80 97 06/04/17 22:30 18 06/04/17 20:40 96.9 74 20 168/85 96 06/04/17 19:00 96 06/04/17 16:00 96.4 79 17 149/90 100 06/04/17 12:05 96 06/04/17 12:00 98.1 106 19 144/84 92 06/04/17 08:00 97.3 62 16 132/80 98 06/05/17 06/05/17 06/05/17 07:00 15:00 23:00 Intake Total 1360 ml Balance 1360 ml Result Diagram: 06/05/17 0553 06/03/17 0349 Laboratory Results Laboratory Tests Test 06/05/17 05:53 White Blood Count 4.4 TH/MM3 Red Blood Count 3.98 MIL/MM3 Hemoglobin 8.8 GM/DL Hematocrit 27.0 % Mean Corpuscular Volume 67.9 FL Mean Corpuscular Hemoglobin 22.2 PG Mean Corpuscular Hemoglobin 32.7 % Concent Red Cell Distribution Width 19.1 % Platelet Count 267 TH/MM3 Mean Platelet Volume 7.3 FL Administered Medications Medications (Trade) Dose Ordered Sig/Rome Route PRN Reason Start Time Stop Time Status Last Admin Dose Admin Sodium Chloride (NS Flush) 2 ml UNSCH PRN IV FLUSH FLUSH AFTER USING IV ACCESS 05/22/17 13:45 05/27/17 17:46 Sodium Chloride (NS Flush) 2 ml BID IV FLUSH 05/22/17 21:00 06/01/17 21:32 Ondansetron HCl (Zofran Inj) 4 mg Q6H PRN IVP NAUSEA OR VOMITING 05/22/17 13:45 05/22/17 19:09 Lactulose 30 ml 30 ml DAILY PRN PO SEVERE CONSITIPATION 05/22/17 13:45 05/26/17 08:40 Ciprofloxacin/ Dextrose 200 ml @ 200 mls/hr Q12H IV 05/22/17 15:00 06/05/17 02:03 Metronidazole (Flagyl 500 Mg Inj) 100 ml @ 100 mls/hr Q8H IV 05/22/17 16:00 06/05/17 00:55 Lisinopril (Prinivil) 20 mg BID PO 05/22/17 21:00 Hold 05/31/17 09:21 Pravastatin Sodium (Pravachol) 40 mg DAILY PO 05/23/17 09:00 05/31/17 09:21 Glipizide (Glucotrol) 5 mg DAILY PO 05/23/17 10:00 Hold 05/30/17 08:02 Hydromorphone HCl (Dilaudid Pf Inj) 1 mg Q3H PRN IV PUSH BREAKTHROUGH PAIN 05/24/17 13:32 06/05/17 06:02 Aspirin (Aspirin) 81 mg DAILY PO 05/25/17 09:00 Hold 05/30/17 08:01 Pantoprazole Sodium 40 mg 40 mg DAILY PO 05/25/17 09:00 Hold 05/31/17 09:21 Lactated Ringer's (Lr 1000 ml Inj) 1,000 ml @ 100 mls/hr Q10H IV 05/31/17 17:22 06/04/17 19:50 Pantoprazole Sodium 40 mg 40 mg Q24H IV 05/31/17 18:00 06/04/17 17:13 Fluconazole/ Sodium Chloride (Diflucan 400 Mg Premix Bag) 200 ml @ 100 mls/hr Q24H IV 05/31/17 18:00 06/04/17 17:14 Enoxaparin Sodium (Lovenox Inj) 30 mg Q24H SQ 06/01/17 17:00 06/04/17 17:13 Senna/Docusate Sodium (Raven-Colace) 1 tab BID PO 06/03/17 11:00 06/04/17 19:46 Oxycodone/ Acetaminophen (Percocet 10-325 Mg) 1 tab Q4H PRN PO PAIN SCALE 1-10 06/04/17 21:00 06/05/17 04:25 Objective Remarks GENERAL: Well-nourished, well-developed patient. SKIN: Warm and dry. HEAD: Normocephalic. EYES: No scleral icterus. No injection or drainage. NECK: Supple, trachea midline. No JVD or lymphadenopathy. LYMPHATIC: No adenopathy. CARDIOVASCULAR: Regular rate and rhythm without murmurs. RESPIRATORY: Breath sounds equal bilaterally. No accessory muscle use. GASTROINTESTINAL: Abdomen soft, dressing dry, slight soreness, +BS EXTREMITIES: No cyanosis, or edema. MUSCULOSKELETAL: Adequate muscle tone. NEUROLOGICAL: No obvious focal deficit. Awake, alert, and oriented x3. PSYCHIATRIC: Appropriate mood and affect; insight and judgment normal. Assessment/Plan Problem List: (1) Adenocarcinoma, colon Status: Acute Plan: --CT chest showed no mets disease. --has a history of perforated diverticulitis and had a right abdominal wall abscess. He had multiple incision and drainages. He had --CT ab. May 22 --> showed thickening of the descending colon with induration. --colonoscopy May 29 -->found to have an inflammatory mass in the descending colon almost obstructing the lumen. --ex. lap--> large mass in the descending colon. +descending colectomy with reanastomosis. +incision and drainage of the right abdominal wall abscess. -- Final pathology showed a mucinous adenocarcinoma measuring 8.5 x 7.0 x 2.5 cm. No macroscopic perforation noted. +moderately differentiated with negative margins. No lymphovascular invasion or perineural invasion noted. ---- LN negative. Pathologic stage T3 N0 MX or stage IIA. Recommendations for systemic therapy: colon cancer appears to be localized. Normally I do not recommend adjuvant chemotherapy for stage IIA cancer; however , in this case, I am not sure if the abdominal abscess is anywhere near the colon cancer and I am not sure if the colon cancer has caused the perforated diverticulitis and forming the abscess. If that is the case, then it would be considered high risk and I would recommend adjuvant chemotherapy. will discuss further with the surgeon. The tumor itself has no high risk features. also going to have pathology do a KRAS, BRAF and MSI study. --patient also with family history of breast cancer and colon cancer. He has a sister with breast cancer. Her son was diagnosed with colon cancer at age 41. Will check an MSI study on the patient's tumor. Will consider doing genetic testing if he is eligible. Assessment 57y/o male with newly diagnosed colon cancer. h/o Situs inversus. Diverticulitis. Right abdominal wall abscess. Hypertension. Hyperlipidemia. Hiatal hernia. Gastroesophageal reflux disease (GERD). COPD. Plan 1. Reviewed CT with patient. 2. F/u oncology clinic Jorge Rose MD Jun 05, 2017 07:29
[2017-06-05 08:00] VITALS: BP 150/88; PULSE 63; RESP 14; TEMP 96.5; O2SAT 95
[2017-06-05] MEDS: PRAVASTATIN SOD 40 MG TAB PO SCH (08:28)
[2017-06-05] MEDS: DOCUSATE SODIUM 50 MG/SENNA 8.6 MG TAB PO SCH ×2 (08:28→20:53)
[2017-06-05] MEDS: SODIUM CHLORIDE 0.9% FLUSH 10 ML FLUSH IV FLUSH SCH ×2 (08:29→20:57)
[2017-06-05] MEDS: LACTATED RINGER'S 1000 ML INJ 1,000 ML IV SCH (08:29)
--- NOTE | 2017-06-05 11:00 | HHI.PR ---
Subjective Remarks The patient said he had increased pain. He has not been ambulating as much. He still has not had a bowel movement. He wants to try a regular diet. Discussed with surgery and nursing. Objective Vitals Vital Signs Date Time Temp Pulse Resp B/P Pulse Ox O2 Delivery O2 Flow Rate FiO2 06/05/17 08:00 96.5 63 14 150/88 95 06/05/17 06:05 18 06/05/17 00:02 97.2 78 18 158/80 97 06/04/17 22:30 18 06/04/17 20:40 96.9 74 20 168/85 96 06/04/17 19:00 96 06/04/17 16:00 96.4 79 17 149/90 100 06/04/17 12:05 96 06/04/17 12:00 98.1 106 19 144/84 92 I/O 06/04/17 06/04/17 06/04/17 06/05/17 06/05/17 06/05/17 06:59 14:59 22:59 06:59 14:59 22:59 Intake Total 1205 ml 2179 ml 980 ml 1360 ml Output Total 300 ml Balance 1205 ml 2179 ml 980 ml 1360 ml -300 ml Intake Oral 480 ml 1560 ml 780 ml 480 ml IV Total 725 ml 619 ml 200 ml 880 ml Output Urine Total 300 ml # Voids 2 3 2 3 # Bowel Movements 0 Result Diagram: 06/05/17 0553 06/03/17 0349 Imaging Last Impressions Chest CT 06/04/17 0000 Signed Impressions: Service Date/Time: Sunday, June 04, 2017 09:31 - CONCLUSION: 1. There are no findings to indicate metastatic disease within the chest. 2. Nonacute findings include situs inversus, moderate size hiatal hernia, and mild emphysema. Rob Oleary MD Retroperitoneal Abscess Drainage 05/26/17 0000 Signed Impressions: Service Date/Time: Friday, May 26, 2017 15:56 - CONCLUSION: Uncomplicated CT guided drainage. The fluid was sent for stat Gram stain and culture. Jose Garcia MD FACR Abdomen/Pelvis CT 05/22/17 1022 Signed Impressions: Service Date/Time: Monday, May 22, 2017 12:28 - CONCLUSION: 1. Bowel wall thickening descending colon and induration consistent with an inflammatory process.. Underlying neoplasm excluded. 2. Evidence for previous abdominal wall surgery 3. Hiatal hernia. 4. Findings have been discussed with the referring physician. Jose Garcia MD FACR Objective Remarks GENERAL: NAD. SKIN: Warm and dry. HEAD: Normocephalic. EYES: No scleral icterus. No injection or drainage. NECK: Supple, trachea midline. No JVD or lymphadenopathy. CARDIOVASCULAR: Regular rate and rhythm without murmurs, gallops, or rubs. RESPIRATORY: Breath sounds equal bilaterally. No accessory muscle use. GASTROINTESTINAL: Abdomen soft, nondistended. Bandage in place, mid-abdomen. Mild generalized tenderness of palpation. MUSCULOSKELETAL: No cyanosis, or edema. BACK: Nontender without obvious deformity. No CVA tenderness. NEURO: No gross deficits. PSYCH: Mood and affect appropriate. Procedures Pigtail catheter drain placement by IR 05/26/2017 Medications and IVs Current Medications Medications (Trade) Dose Ordered Sig/Rome Route Start Time Stop Time Status Last Admin (NS Flush) 2 ml UNSCH PRN IV FLUSH 05/22/17 13:45 05/27/17 17:46 (NS Flush) 2 ml BID IV FLUSH 05/22/17 21:00 06/01/17 21:32 (Tylenol) 650 mg Q4H PRN PO 05/22/17 13:45 (Zofran Inj) 4 mg Q6H PRN IVP 05/22/17 13:45 05/22/17 19:09 (Narcan Inj) 0.4 mg UNSCH PRN IV 05/22/17 13:45 (Lactulose Liq) 30 ml DAILY PRN PO 05/22/17 13:45 05/26/17 08:40 (Ventolin Hfa Inh) 1 puff Q4H PRN INH 05/22/17 15:00 (Prinivil) 20 mg BID PO 05/22/17 21:00 05/31/17 09:21 (Pravachol) 40 mg DAILY PO 05/23/17 09:00 06/05/17 08:28 (Habitrol 7 Mg Patch.24 Hr) 1 patch DAILY PRN T-DERMAL 05/22/17 15:00 (Mucinex Er) 600 mg BID PRN PO 05/22/17 15:15 (Glucotrol) 5 mg DAILY PO 05/23/17 10:00 Hold 05/30/17 08:02 (D50w (Vial) Inj) 50 ml UNSCH PRN IV 05/23/17 10:00 (Glucagon Inj) 1 mg UNSCH PRN OTHER 05/23/17 10:00 (Dilaudid Pf Inj) 1 mg Q3H PRN IV PUSH 05/24/17 13:32 06/05/17 09:38 (Aspirin) 81 mg DAILY PO 05/25/17 09:00 Hold 05/30/17 08:01 Pantoprazole Sodium 40 mg 40 mg DAILY PO 05/25/17 09:00 Hold 05/31/17 09:21 (Diflucan 400 Mg Premix Bag) 200 ml @ 100 mls/hr Q24H IV 05/31/17 18:00 06/04/17 17:14 (Lovenox Inj) 30 mg Q24H SQ 06/01/17 17:00 06/04/17 17:13 (Raven-Colace) 1 tab BID PO 06/03/17 11:00 06/05/17 08:28 (Percocet 10-325 Mg) 1 tab Q4H PRN PO 06/04/17 21:00 06/05/17 08:32 A/P Problem List: (1) Abdominal wall abscess ICD Code: L02.211 Status: Acute (2) Acute diverticulitis ICD Code: K57.92 Status: Acute (3) Colonic diverticular abscess ICD Code: K57.20 Status: Acute Assessment and Plan Mr. Mendez is a 57-year-old male with history of situs inversus, diverticulitis , right abdominal wall abscess s/p drain placement/removal, HTN, HLD, hiatal hernia, multiple abdominal hernia repairs with mesh, GERD, presents with a four- day history of abdominal pain. Acute Diverticulitis/ Colon adenocarcinoma Meets sepsis criteria with +leukocytosis WBC 13.7K and tachycardia HR 94, with source diverticulitis vs abscess. Tmax 100.4. Lactic acid 0.7. CT abd/pelvis images reviewed, shows marked induration and bowel wall thickening in the descending colon; induration in abdominal wall with small abscess present; direct visualization suggested to exclude underlying neoplasm. S/p Colonoscopy on 05/29/2017 --> descending colon inflammatory mass - possibility of malignancy. Tumor markers ordered for concern for neoplasm, CEA markedly elevated at 350; AFP and CA 19-9 wnl. S/p Ex Lap, descending colectomy, primary anastomosis, repair of recurrent hernia. Pathology reveals invasive adenocarcinoma. Oncology consult appreciated. CT chest without evidence of metastatic disease. - pain control and diet per general surgery. - discontinue antibiotics. - Oncology following. The pt will follow up in clinic. - Encourage ambulation. Hypertension/Hyperlipidemia Chronic, stable - lisinopril 20mg BID resumed. - resume pravastatin 40mg Qday. - resume aspirin 81mg Qday when OK by surgery. Diabetes Mellitus Last HgbA1c 6.7 on 03/17/17, much improved from previous HgbA1c 10.1 on 05/26/15. - hold patient's metformin and glipizide. - monitor accu-checks, cover with low dose SSI. Blood glucose well controlled 06/05. Tobacco Use Smokes 3-4 cigarettes daily. - counseled on cessation. - nicotine patch prn. Asthma, Possible COPD with +tobacco use Chronic, not in exacerbation. - continue patient's albuterol inhaler prn. - incentive spirometry. - encourage ambulation. - Mucinex bid prn. Anemia Exacerbated by surgery. - follow CBC and transfuse as needed. PPx: SCDs Discharge Planning Awaiting surgical clearance. Anticipate d/c in Alistair Alegria DO Jun 05, 2017 11:00
--- NOTE | 2017-06-05 11:15 | HHI.PR ---
Subjective Subjective Notes DAILY PROGRESS NOTE FOR SURGICAL ATTENDING, DR. JIGAR LAU Patient pain under control with Percocet No. 10 Tolerating diet Objective Vitals/I&O Vital Signs Date Time Temp Pulse Resp B/P Pulse Ox O2 Delivery O2 Flow Rate FiO2 06/05/17 08:00 96.5 63 14 150/88 95 06/03/17 12:00 Nasal Cannula 2.00 06/01/17 21:04 21 Labs Laboratory Tests Test 06/05/17 05:53 White Blood Count 4.4 Red Blood Count 3.98 Hemoglobin 8.8 Hematocrit 27.0 Mean Corpuscular Volume 67.9 Mean Corpuscular Hemoglobin 22.2 Mean Corpuscular Hemoglobin 32.7 Concent Red Cell Distribution Width 19.1 Platelet Count 267 Mean Platelet Volume 7.3 Radiology Last Impressions Retroperitoneal Abscess Drainage 05/26/17 0000 Signed Impressions: Service Date/Time: Friday, May 26, 2017 15:56 - CONCLUSION: Uncomplicated CT guided drainage. The fluid was sent for stat Gram stain and culture. Jose Garcia MD FACR Abdomen/Pelvis CT 05/22/17 1022 Signed Impressions: Service Date/Time: Monday, May 22, 2017 12:28 - CONCLUSION: 1. Bowel wall thickening descending colon and induration consistent with an inflammatory process.. Underlying neoplasm excluded. 2. Evidence for previous abdominal wall surgery 3. Hiatal hernia. 4. Findings have been discussed with the referring physician. 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 Jorge Rose seeing the patient Anticipate discharged in the next 24 hours Follow-up my office 2 weeks Follow up with Dr. Rose as arranged I discussed with Dr. Rose reviewed his pathology and where his abscess was Attending Statement NOTE FOR SURGICAL ATTENDING, DR. JIGAR LAU I attest that I had a [id number] encounter with the patient on the same day, and personally performed and documented my assessment and findings in the medical record. The following services were provided during this hospital visit: Chart data review, vital sign assessments/reviewing monitor data Review of consultations notes if present. Medication orders/review and/or management Ordering and/or reviewing lab tests Ordering and/or interpreting/reviewing x-rays and/or diagnostic studies Care of the patient and discussion of the patient with the care team Documentation time To help prompt me to consider important information that might be impacting today's encounter and assessment, information from prior notes written by myself or my colleagues may have been "brought forward/copy and pasted" into today's note. Problem Qualifiers (1) Diverticulitis: (2) Chronic airway obstruction: Qualified Code: J41.0 - Simple chronic bronchitis (3) Diabetes mellitus: (4) Obesity: (5) Hepatitis C: Qualified Code: B18.2 - Chronic hepatitis C without hepatic coma Jigar Lau MD Jun 05, 2017 11:15
[2017-06-05 12:00] VITALS: BP 149/86; PULSE 64; RESP 18; TEMP 95.5; O2SAT 97
[2017-06-05] MEDS: FLUCONAZOLE 200 MG TAB PO SCH (12:33)
[2017-06-05] MEDS ORDERED: FLUCONAZOLE 200 MG TAB PO SCH (13:00)
[2017-06-05 16:00] VITALS: BP 135/82; PULSE 68; RESP 18; TEMP 96.4; O2SAT 92
[2017-06-05] MEDS: metroNIDAZOLE 500 MG TAB PO SCH ×2 (16:43→20:53)
[2017-06-05] MEDS: ENOXAPARIN SODIUM 30 MG/0.3 ML SYRINGE SQ SCH (16:43)
[2017-06-05 20:00] VITALS: BP 179/98; PULSE 82; RESP 19; TEMP 97.6; O2SAT 98
[2017-06-05] MEDS: CIPROFLOXACIN 500 MG TAB PO SCH (20:53)
[2017-06-05] MEDS: LISINOPRIL 20 MG TAB PO SCH (20:56)
[2017-06-06] VITALS: BP 179/85; PULSE 58; RESP 19; TEMP 97.1; O2SAT 95
[2017-06-06] MEDS: oxyCODONE/ACETAMINOPHEN 10 MG/325 MG TAB PO PRN ×4 (00:25→11:30)
[2017-06-06] MEDS: HYDROmorphone HCL PF 1 MG/ML VIAL IV PUSH PRN (01:08)
[2017-06-06 03:51] VITALS: BP 145/85; PULSE 56; RESP 19; TEMP 96.5; O2SAT 96
[2017-06-06] MEDS: metroNIDAZOLE 500 MG TAB PO SCH (05:25)
[2017-06-06] MEDS: INSULIN ASPART SUPPLEMENTAL SCALE SQ SCH ×2 (06:08→11:00)
--- NOTE | 2017-06-06 07:32 | PD.ONC.PN ---
Subjective Subjective Remarks Tolerating PO. No N/V. Objective Data Date Time Temp Pulse Resp B/P Pulse Ox O2 Delivery O2 Flow Rate FiO2 06/06/17 03:51 96.5 56 19 145/85 96 06/06/17 00:00 97.1 58 19 179/85 95 06/05/17 20:00 97.6 82 19 179/98 98 06/05/17 16:00 96.4 68 18 135/82 92 06/05/17 12:00 95.5 64 18 149/86 97 06/05/17 08:00 96.5 63 14 150/88 95 06/06/17 06/06/17 06/06/17 06:59 14:59 22:59 Intake Total 240 ml Balance 240 ml Result Diagram: 06/05/17 0553 06/03/17 0349 Administered Medications Medications (Trade) Dose Ordered Sig/Rome Route PRN Reason Start Time Stop Time Status Last Admin Dose Admin Sodium Chloride (NS Flush) 2 ml UNSCH PRN IV FLUSH FLUSH AFTER USING IV ACCESS 05/22/17 13:45 05/27/17 17:46 Sodium Chloride (NS Flush) 2 ml BID IV FLUSH 05/22/17 21:00 06/05/17 20:57 Ondansetron HCl (Zofran Inj) 4 mg Q6H PRN IVP NAUSEA OR VOMITING 05/22/17 13:45 05/22/17 19:09 Lactulose (Lactulose Liq) 30 ml DAILY PRN PO SEVERE CONSITIPATION 05/22/17 13:45 05/26/17 08:40 Lisinopril (Prinivil) 20 mg BID PO 05/22/17 21:00 06/05/17 20:56 Pravastatin Sodium (Pravachol) 40 mg DAILY PO 05/23/17 09:00 06/05/17 08:28 Glipizide (Glucotrol) 5 mg DAILY PO 05/23/17 10:00 Hold 05/30/17 08:02 Hydromorphone HCl (Dilaudid Pf Inj) 1 mg Q3H PRN IV PUSH BREAKTHROUGH PAIN 05/24/17 13:32 06/06/17 01:08 Aspirin (Aspirin) 81 mg DAILY PO 05/25/17 09:00 Hold 05/30/17 08:01 Pantoprazole Sodium (Protonix) 40 mg DAILY PO 05/25/17 09:00 Hold 05/31/17 09:21 Enoxaparin Sodium (Lovenox Inj) 30 mg Q24H SQ 06/01/17 17:00 06/05/17 16:43 Senna/Docusate Sodium (Raven-Colace) 1 tab BID PO 06/03/17 11:00 06/05/17 20:53 Oxycodone/ Acetaminophen (Percocet 10-325 Mg) 1 tab Q4H PRN PO PAIN SCALE 1-10 06/04/17 21:00 06/06/17 03:41 Metronidazole (Flagyl) 500 mg Q8HR PO 06/05/17 16:00 06/06/17 05:25 Ciprofloxacin (Cipro) 500 mg Q12HR PO 06/05/17 21:00 06/05/17 20:53 Fluconazole (Diflucan) 200 mg DAILY PO 06/05/17 13:00 06/05/17 12:33 Objective Remarks GENERAL: Well-nourished, well-developed patient. SKIN: Warm and dry. HEAD: Normocephalic. EYES: No scleral icterus. No injection or drainage. NECK: Supple, trachea midline. No JVD or lymphadenopathy. LYMPHATIC: No adenopathy. CARDIOVASCULAR: Regular rate and rhythm without murmurs. RESPIRATORY: Breath sounds equal bilaterally. No accessory muscle use. GASTROINTESTINAL: Abdomen soft, non-tender, nondistended. Dressing dry. EXTREMITIES: No cyanosis, or edema. MUSCULOSKELETAL: Adequate muscle tone. NEUROLOGICAL: No obvious focal deficit. Awake, alert, and oriented x3. PSYCHIATRIC: Appropriate mood and affect; insight and judgment normal. Assessment/Plan Problem List: (1) Adenocarcinoma, colon Status: Acute Plan: --Discussed with , the tumor appeared to have caused the ? abscess. Therefore, pt has high risk of developing recurrent and mets disease. I would recommend 6 months of adjuvant chemotherapy. Pt will f/u with for port placement. He will f/u oncology clinic for chemo once he is healed from the surgery. --CT chest showed no mets disease. --has a history of perforated diverticulitis and had a right abdominal wall abscess. He had multiple incision and drainages. He had --CT ab. May 22 --> showed thickening of the descending colon with induration. --colonoscopy May 29 -->found to have an inflammatory mass in the descending colon almost obstructing the lumen. --ex. lap--> large mass in the descending colon. +descending colectomy with reanastomosis. +incision and drainage of the right abdominal wall abscess. -- Final pathology showed a mucinous adenocarcinoma measuring 8.5 x 7.0 x 2.5 cm. No macroscopic perforation noted. +moderately differentiated with negative margins. No lymphovascular invasion or perineural invasion noted. ---- LN negative. Pathologic stage T3 N0 MX or stage IIA. Recommendations for systemic therapy: colon cancer appears to be localized. Normally I do not recommend adjuvant chemotherapy for stage IIA cancer; however , in this case, I am not sure if the abdominal abscess is anywhere near the colon cancer and I am not sure if the colon cancer has caused the perforated diverticulitis and forming the abscess. If that is the case, then it would be considered high risk and I would recommend adjuvant chemotherapy. The tumor itself has no high risk features. also going to have pathology do a KRAS, BRAF and MSI study. --patient also with family history of breast cancer and colon cancer. He has a sister with breast cancer. Her son was diagnosed with colon cancer at age 41. Will check an MSI study on the patient's tumor. Will consider doing genetic testing if he is eligible. Assessment 57y/o male with newly diagnosed colon cancer. h/o Situs inversus. Diverticulitis. Right abdominal wall abscess. Hypertension. Hyperlipidemia. Hiatal hernia. Gastroesophageal reflux disease (GERD). COPD. Plan 1. Extensive discussion with pt regarding the need for adjuvant chemotherapy. 2. F/u with for port placement. 3. F/u oncology clinic Jorge Rose MD Jun 06, 2017 07:32
[2017-06-06] MEDS: SODIUM CHLORIDE 0.9% FLUSH 10 ML FLUSH IV FLUSH SCH (07:38)
[2017-06-06] MEDS: FLUCONAZOLE 200 MG TAB PO SCH (07:45)
[2017-06-06] MEDS: LISINOPRIL 20 MG TAB PO SCH (07:45)
[2017-06-06] MEDS: PRAVASTATIN SOD 40 MG TAB PO SCH (07:45)
[2017-06-06] MEDS: DOCUSATE SODIUM 50 MG/SENNA 8.6 MG TAB PO SCH (07:45)
[2017-06-06] MEDS: CIPROFLOXACIN 500 MG TAB PO SCH (07:45)
[2017-06-06 08:00] VITALS: BP 159/85; PULSE 58; RESP 18; TEMP 97.6; O2SAT 97
[2017-06-06] MEDS ORDERED: CIPR-9 PO (09:27)
[2017-06-06] MEDS ORDERED: PANT40TA3 PO (09:28)
[2017-06-06] MEDS ORDERED: PERC5TAB12 PO (09:28)
[2017-06-06] MEDS ORDERED: METR-1 PO (09:28)
[2017-06-06] MEDS ORDERED: DIFL200T PO (09:28)
[2017-06-06] MEDS ORDERED: PERC10TA27 PO (09:30)
--- NOTE | 2017-06-06 10:46 | HHI.DCPOC ---
Discharge Care Plan Diagnosis: (1) Adenocarcinoma, colon (2) Meckels diverticulum (3) Colonic diverticular abscess (4) Nicotine abuse Goals to Promote Your Health * To prevent worsening of your condition and complications * To maintain your health at the optimal level Directions to Meet Your Goals Take your medications as prescribed Follow your dietary instruction Follow activity as directed Keep your appointments as scheduled Take your immunizations and boosters as scheduled If your symptoms worsen call your PCP, if no PCP go to Urgent Care Center or Emergency Room Smoking is Dangerous to Your Health. Avoid second hand smoke Call the 24-hour hour crisis hotline for domestic abuse at Alistair Galo DO Jun 06, 2017 10:46
--- NOTE | 2017-06-06 10:52 | HHI.DS ---
Discharge Summary Admission Date May 22, 2017 at 13:38 Discharge Date: Jun 06, 2017 Admitting Diagnosis diverticulitis with microabscesses/possible malignancy (1) Abdominal wall abscess ICD Code: L02.211 (2) Acute diverticulitis ICD Code: K57.92 (3) Colonic diverticular abscess ICD Code: K57.20 Diagnosis: Principal (4) Adenocarcinoma, colon ICD Code: C18.9 Diagnosis: Principal Procedures Pigtail catheter drain placement by IR 05/26/2017 Brief History - From Admission 57-year-old male with history of situs inversus, diverticulitis, right abdominal wall abscess s/p drain placement/removal, HTN, HLD, hiatal hernia, multiple abdominal hernia repairs with mesh, GERD, presents with a four-day history of abdominal pain. Patient locates the pain to the right upper quadrant and right lateral abdomen without radiation, described as constant 8/ 10 pains that have been worsening over the past few days. He states the pain has become so bad that he cannot sleep or get comfortable. He reports swelling at the right lateral abdomen, same site as his previous abdominal wall abscess. He reports nausea but no vomiting. He does report subjective fevers but did not take his temperature at home. His bowel movements have been normal, last BM yesterday 05/21. He states he still has been able to eat and denies any decreased appetite. He tried taking a few extra aspirin to relieve the pain without any relief. The patient is requesting to see Dr. Lim as surgery was previously discussed and the patient has not been able to follow-up with him due to insurance reasons. The patient now has patient assistance again and is motivated to continue follow up. His last colonoscopy was at age 51, reportedly unremarkable. The patient denies any other medical complaints at this time including no headache, lightheadedness, dizziness, chest pain, palpitations, shortness of breath, or urinary complaints. CBC/BMP: 06/05/17 0553 06/03/17 0349 Significant Findings Laboratory Tests Test 06/05/17 05:53 Red Blood Count 3.98 MIL/MM3 (4.50-5.90) Hemoglobin 8.8 GM/DL (13.0-17.0) Hematocrit 27.0 % (39.0-51.0) Mean Corpuscular Volume 67.9 FL (80.0-100.0) Mean Corpuscular Hemoglobin 22.2 PG (27.0-34.0) Red Cell Distribution Width 19.1 % (11.6-17.2) Imaging Last Impressions Chest CT 06/04/17 0000 Signed Impressions: Service Date/Time: Sunday, June 04, 2017 09:31 - CONCLUSION: 1. There are no findings to indicate metastatic disease within the chest. 2. Nonacute findings include situs inversus, moderate size hiatal hernia, and mild emphysema. Rob Oleary MD Retroperitoneal Abscess Drainage 05/26/17 0000 Signed Impressions: Service Date/Time: Friday, May 26, 2017 15:56 - CONCLUSION: Uncomplicated CT guided drainage. The fluid was sent for stat Gram stain and culture. Jose Garcia MD FACR Abdomen/Pelvis CT 05/22/17 1022 Signed Impressions: Service Date/Time: Monday, May 22, 2017 12:28 - CONCLUSION: 1. Bowel wall thickening descending colon and induration consistent with an inflammatory process.. Underlying neoplasm excluded. 2. Evidence for previous abdominal wall surgery 3. Hiatal hernia. 4. Findings have been discussed with the referring physician. Jose Garcia MD FACR PE at Discharge GENERAL: NAD. SKIN: Warm and dry. HEAD: Normocephalic. EYES: No scleral icterus. No injection or drainage. NECK: Supple, trachea midline. No JVD or lymphadenopathy. CARDIOVASCULAR: Regular rate and rhythm without murmurs, gallops, or rubs. RESPIRATORY: Breath sounds equal bilaterally. No accessory muscle use. GASTROINTESTINAL: Abdomen soft, nondistended. Bandage in place, mid-abdomen. Mild generalized tenderness of palpation. MUSCULOSKELETAL: No cyanosis, or edema. BACK: Nontender without obvious deformity. No CVA tenderness. NEURO: No gross deficits. PSYCH: Mood and affect appropriate. Pt update on day of discharge The patient was ambulating. He was ready to go home. He had no acute complaints. He requested a few pads to put over his incision before he goes. Hospital Course Acute Diverticulitis/ Colon adenocarcinoma The pt met sepsis criteria with leukocytosis and tachycardia with source diverticulitis vs abscess. He was placed on IV antibiotics. CT abd/pelvis showed marked induration and bowel wall thickening in the descending colon; induration in abdominal wall with small abscess present; direct visualization suggested to exclude underlying neoplasm. Gastroenterology was consulted. S/p colonoscopy on 05/29/2017 --> descending colon inflammatory mass - possibility of malignancy. Tumor markers ordered for concern for neoplasm, CEA markedly elevated at 350; AFP and CA 19-9 wnl. General surgery was consulted. S/p Ex Lap , descending colectomy, primary anastomosis, repair of recurrent hernia. 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 Oncology was consulted. CT chest without evidence of metastatic disease. The pt received pain control. His diet was advanced. He will complete a course of PO Cipro, Flagyl and fluconazole. The pt will follow up with general surgery and oncology. Adjuvant chemotherapy was recommended by oncology. Tobacco Use Smokes 3-4 cigarettes daily. The pt was counseled on cessation. He said he was determined to quit. Anemia Exacerbated by surgery. Stable. He will follow up with surgery as an outpt. He will have a repeat CBC in 3-5 days. Pt Condition on Discharge: Stable Discharge Disposition: Discharge Home Discharge Time: > 30 minutes Discharge Instructions DIET: Follow Instructions for: As Tolerated, No Restrictions Activities you can perform: Regular-No Restrictions Follow up Referrals: Oncology - [address] Rose PCP Follow-up - 1 Week Surgical - 1 Week with Jigar Lau MD New Orders: CBC NO DIFF - 3-5 Days New Medications: Oxycodone-Acetaminophen (Percocet) 10-325 mg Tab 1 TAB PO Q6H PRN PAIN #40 Ref 0 TAB Ciprofloxacin (Cipro) 500 Mg Tab 500 MG PO Q12HR infection Days 7 TAB Fluconazole (Diflucan) 200 Mg Tab 200 MG PO DAILY infection Days 7 TAB Metronidazole (Flagyl) 500 Mg Tab 500 MG PO Q8HR infection Days 7 TAB Pantoprazole (Pantoprazole) 40 Mg Tab 40 MG PO DAILY gastritis #30 TAB Continued Medications: Albuterol 6.7 GM Inh (Proventil Hfa 6.7 GM Inh) 90 Mcg/Act Aer 1 PUFF INH Q4H PRN SHORTNESS OF BREATH #1 Ref 0 INHALER Aspirin (Aspirin) 325 Mg Tab 325 MG PO DAILY #30 Ref 0 TAB Glipizide (Glipizide) 5 Mg Tab 5 MG PO DAILY Take 30 minutes before a meal Blood Sugar Management #30 Ref 6 TAB Lisinopril (Lisinopril) 20 Mg Tab 20 MG PO BID #180 Ref 3 TAB Lovastatin (Lovastatin) 40 Mg Tab 40 MG PO DAILY Cholesterol Management #30 Ref 3 TAB Metformin (Metformin) 500 Mg Tab 500 MG PO BIDPC With meals Blood Sugar Management #180 Ref 1 TAB Alistair Galo DO Jun 06, 2017 10:52 Aspirin (Aspirin) 325 Mg Tab 325 MG PO DAILY #30 Ref 0 TAB Glipizide (Glipizide) 5 Mg Tab 5 MG PO DAILY Take 30 minutes before a meal Blood Sugar Management #30 Ref 6 TAB Lisinopril (Lisinopril) 20 Mg Tab 20 MG PO BID #180 Ref 3 TAB Lovastatin (Lovastatin) 40 Mg Tab 40 MG PO DAILY Cholesterol Management #30 Ref 3 TAB Metformin (Metformin) 500 Mg Tab 500 MG PO BIDPC With meals Blood Sugar Management #180 Ref 1 TAB Alistair Galo DO Jun 06, 2017 10:52
[2017-06-06] MEDS: PANTOPRAZOLE SOD 40 MG DELAYED RELEASE TAB PO SCH (11:32)
--- NOTE | 2017-06-06 11:54 | HHI.PR ---
Subjective Subjective Notes DAILY PROGRESS NOTE FOR SURGICAL ATTENDING, DR. JIGAR LAU Ambulating in room and hallway Objective Vitals/I&O Vital Signs Date Time Temp Pulse Resp B/P Pulse Ox O2 Delivery O2 Flow Rate FiO2 06/06/17 08:00 97.6 58 18 159/85 97 06/03/17 12:00 Nasal Cannula 2.00 Radiology Last Impressions Retroperitoneal Abscess Drainage 05/26/17 0000 Signed Impressions: Service Date/Time: Friday, May 26, 2017 15:56 - CONCLUSION: Uncomplicated CT guided drainage. The fluid was sent for stat Gram stain and culture. Jose Garcia MD FACR Abdomen/Pelvis CT 05/22/17 1022 Signed Impressions: Service Date/Time: Monday, May 22, 2017 12:28 - CONCLUSION: 1. Bowel wall thickening descending colon and induration consistent with an inflammatory process.. Underlying neoplasm excluded. 2. Evidence for previous abdominal wall surgery 3. Hiatal hernia. 4. Findings have been discussed with the referring physician. Jose Garcia MD FACR Cardiovascular: Regular Lungs: Clear Abdomen: Other (midline incision with ele in place; c/d/i; abdomen soft minimally tender ) Extremities: No edema A/P Problem List: (1) Cancer of descending colon (2) Adenocarcinoma, colon (3) Elevated CEA (4) Situs inversus (5) Dextrocardia (6) Abdominal wall abscess (7) Colonic diverticular abscess (8) Acute diverticulitis (9) Diverticulitis (10) Chronic airway obstruction (11) Diabetes mellitus (12) Obesity (13) Hepatitis C (14) History of incisional hernia repair (15) History of Margarita fundoplication (16) Sepsis (17) Meckels diverticulum Assessment and Plan 57 year old male with Meckel's diverticulum, right sided descending colonic mass /abscess; s/p ex lap; descending colectomy; primary anastomosis; repair of recurrent incisional hernia repair - Percocet for pain -Tolerating regular diet -Abdominal binder for comfort -IS -OOB and mobilize -GS clear for DC; follow up with Dr. Lau Attending Statement NOTE FOR SURGICAL ATTENDING, DR. JIGAR LAU I agree with above assessment and plan. The exam, history, and the medical decision-making described in the above note were completed with the assistance of the mid-level provider. I reviewed and agree with the findings presented. I attest that I had a [id number] encounter with the patient on the same day, and personally performed and documented my assessment and findings in the medical record. The following services were provided during this hospital visit: Chart data review, vital sign assessments/reviewing monitor data Review of consultations notes if present. Medication orders/review and/or management Ordering and/or reviewing lab tests Ordering and/or interpreting/reviewing x-rays and/or diagnostic studies Care of the patient and discussion of the patient with the care team Documentation time To help prompt me to consider important information that might be impacting today's encounter and assessment, information from prior notes written by myself or my colleagues may have been "brought forward/copy and pasted" into today's note. Problem Qualifiers (1) Diverticulitis: (2) Chronic airway obstruction: Qualified Code: J41.0 - Simple chronic bronchitis (3) Diabetes mellitus: (4) Obesity: (5) Hepatitis C: Qualified Code: B18.2 - Chronic hepatitis C without hepatic coma Albina Lorenz Jun 06, 2017 11:54 Jigar Lau MD Jun 07, 2017 08:17
[2017-06-06 12:00] VITALS: BP 140/74; PULSE 68; RESP 17; TEMP 98.3; O2SAT 98
== END 2017-06-06 12:41 | disposition home or self-care (01) | DRG 853 ==
LOC: NEPE 09:53 → NEDA 13:38 → NEDH 21:04 → NEPGCP 22:17 → N07A 05-24 15:02
PROVIDERS: ADMIT Hospitalist; ATTEND Hospitalist
PROC: 0W9H30Z Drainage of Retroperitoneum with Drainage Device, Percutaneous Approach (ICD-10-PCS; 2017-05-26)
PROC: 0DBM8ZX Excision of Descending Colon, Via Natural or Artificial Opening Endoscopic, Diagnostic (ICD-10-PCS; 2017-05-29)
PROC: 0WQF0ZZ Repair Abdominal Wall, Open Approach (ICD-10-PCS; 2017-05-31)
PROC: 0DBM0ZZ Excision of Descending Colon, Open Approach (ICD-10-PCS; principal; 2017-05-31 14:33)
DX: A41.9 Sepsis, unspecified organism (principal); K68.19 Other retroperitoneal abscess; Q89.3 Situs inversus; C18.6 Malignant neoplasm of descending colon; Q43.0 Meckel's diverticulum (displaced) (hypertrophic); I10 Essential (primary) hypertension; K21.9 Gastro-esophageal reflux disease without esophagitis; J44.9 Chronic obstructive pulmonary disease, unspecified; E11.9 Type 2 diabetes mellitus without complications; G47.30 Sleep apnea, unspecified; M19.90 Unspecified osteoarthritis, unspecified site; E78.5 Hyperlipidemia, unspecified; E66.9 Obesity, unspecified; B18.2 Chronic viral hepatitis C; K43.2 Incisional hernia without obstruction or gangrene; K66.0 Peritoneal adhesions (postprocedural) (postinfection); R16.1 Splenomegaly, not elsewhere classified; K64.8 Other hemorrhoids; K64.4 Residual hemorrhoidal skin tags; F17.210 Nicotine dependence, cigarettes, uncomplicated; F32.9 Major depressive disorder, single episode, unspecified; Z68.30 Body mass index [BMI] 30.0-30.9, adult; Z79.84 Long term (current) use of oral hypoglycemic drugs; Z80.0 Family history of malignant neoplasm of digestive organs; Z80.3 Family history of malignant neoplasm of breast; Z86.73 Personal history of transient ischemic attack (TIA), and cerebral infarction without residual deficits; Z91.19 Patient's noncompliance with other medical treatment and regimen
CPT/HCPCS: 49406; 71260; 74177; 76937; 80048; 80053; 81001; 82105; 82378; 82948; 83605; 83690; 85025; 85027; 86301; 86850; 86900; 86901; 87040; 87070; 87185; 87205; 88305; 88309; 94150; 96374; 96375; 96376; C1729; C9113; J0131; J0744; J1170; J1450; J1650; J1815; J2250; J2270; J2405; J3010; J7030; J7120; Q9967

== ENCOUNTER 2017-06-07 08:54 | Emergency (ER) | payer OTHER ==
[~2017-06-07] VITALS: Ht 185.4 cm; Wt 107.0 kg
[~2017-06-07 08:54] MED LIST changes: -AMIT75TA2 PO; +CIPR-9 PO; +DIFL200T PO; -GABA600T PO; -GEMF600T PO; +METR-1 PO; -OXYC1CAP PO; +PANT40TA3 PO; +PERC10TA27 PO
[2017-06-07 08:57] VITALS: BP 129/97; PULSE 112; RESP 28; O2SAT 96
--- NOTE | 2017-06-07 11:28 | PD ---
HPI Chief Complaint: Respiratory Symptoms Time Seen by Provider: 09:33 Travel History International Travel<30 days: No Contact w/Intl Traveler<30days: No Traveled to known affect area: No History of Present Illness HPI This patient was discharged yesterday. He came in with some vague complaints. It turns out he stated a hotel last night and he is worried there are bedbugs there so he came here. He does not have any specific coherent complaint. He had recent extensive workup. He says after walking last night he thought he got short of breath for a few minutes. He is breathing fine now. Symptoms severity is mild PFSH Past Medical History Hx Anticoagulant Therapy: Yes (ASA 325MG) Arthritis: Yes Asthma: No Autoimmune Disease: No Blood Disorders: No Anxiety: No Depression: Yes Heart Rhythm Problems: No Cancer: No Cardiovascular Problems: Yes (HTN) High Cholesterol: Yes Chemotherapy: No Chest Pain: No Congestive Heart Failure: No COPD: Yes Cerebrovascular Accident: Yes Diabetes: Yes (HYPOGLYCEMIA ) Patient Takes Glucophage: Yes (APPROX 2 WEEKS AGO LAST TAKEN) Diminished Hearing: No Diverticulitis: Yes Endocrine: No Gastrointestinal Disorders: Yes (HIATAL HERNIA; ABD HERNIA, ULCER) GERD: Yes Genitourinary: No Hepatitis: No Hiatal Hernia: Yes Hypertension: Yes Immune Disorder: No Implanted Vascular Access Dvce: No Medical other: Yes (GERD, HX ULCERS, SEIZURES , HEART, LIVER AND OTHER ORGANS ON OPPOSITE SIDE) Musculoskeletal: Yes (ARTHRITIS) Neurologic: Yes (VERTIGO ) Psychiatric: No Reproductive: No Respiratory: Yes (ASTHMA, COPD) Immunizations Current: Yes Migraines: No Myocardial Infarction: No Radiation Therapy: No Seizures: Yes ( A KID) Sleep Apnea: Yes Thyroid Disease: No Triglycerides - High: Yes Ulcer: Yes Past Surgical History Abdominal Surgery: Yes (12/11 LAP HIATAL HERNIA; 06/10 REPAIR INCISIONAL HERNIA, SX TO REMOVE CA MASS) Body Medical Devices: MESH Cardiac Surgery: No Ear Surgery: No Endocrine Surgery: No Eye Surgery: No Genitourinary Surgery: No Gynecologic Surgery: No Joint Replacement: No Oral Surgery: Yes (EGD 09/09) Pacemaker: No Thoracic Surgery: No Other Surgery: Yes (lap hiatal hernia repair) Social History Alcohol Use: Yes (ONCE A MONTH) Tobacco Use: Yes ("A FEW PER DAY") Substance Use: No Allergies-Medications (Allergen,Severity, Reaction): Coded Allergies: No Known Allergies (Verified , 06/07/17) Reported Meds & Prescriptions Reported Meds & Active Scripts Active Percocet (Oxycodone-Acetaminophen) 10-325 mg Tab 1 Tab PO Q6H PRN Flagyl (Metronidazole) 500 Mg Tab 500 Mg PO Q8HR 7 Days Pantoprazole (Pantoprazole Sodium) 40 Mg Tab 40 Mg PO DAILY Cipro (Ciprofloxacin HCl) 500 Mg Tab 500 Mg PO Q12HR 7 Days Lovastatin 40 Mg Tab 40 Mg PO DAILY Metformin (Metformin HCl) 500 Mg Tab 500 Mg PO BIDPC With meals Lisinopril 20 Mg Tab 20 Mg PO BID Glipizide 5 Mg Tab 5 Mg PO DAILY Take 30 minutes before a meal Reported Proventil Hfa 6.7 GM Inh (Albuterol Sulfate) 90 Mcg/Act Aer 1 Puff INH Q4H PRN Aspirin 325 Mg Tab 325 Mg PO DAILY Review of Systems General / Constitutional: No: Fever HENT: No: Headaches Cardiovascular: No: Chest Pain or Discomfort Respiratory: Positive: Shortness of Breath Physical Exam Narrative RESPIRATORY: Respiratory effort unlabored, no retractions or use of accessory muscles. Breath sounds are clear and symmetric. GASTROINTESTINAL: Abdomen soft, non-tender, nondistended. Positive bowel sounds. No hepato-splenomegaly, or palpable masses. No guarding. Incision well healed without dehiscence or sign of infection NECK: Symmetrical appearance, midline trachea. No mass or crepitus. Thyroid without enlargement, tenderness, or mass. Data Data Last Documented VS Vital Signs Date Time Temp Pulse Resp B/P Pulse Ox O2 Delivery O2 Flow Rate FiO2 06/07/17 09:06 96 Room Air 06/07/17 08:57 112 28 129/97 Orders Electrocardiogram (06/07/17 ) [facility] Medical Decision Making Medical Screen Exam Complete: Yes Emergency Medical Condition: Yes Medical Record Reviewed: Yes Differential Diagnosis Pneumonia, bronchitis, asthma Narrative Course I have reviewed the patient's electronic medical record. Patient had CT of the chest 2 days ago and I don't feel he needs repeat imaging. Clear lungs with saturation of 98% on exam Stable for outpatient follow-up Patient states that he feels better and wants to go home I reviewed his EKG which shows sinus rhythm with some ectopy Extended cardiac monitoring reveals sinus rhythm with occasional ectopic beats Diagnosis Primary Impression: Malaise Additional Impression: Shortness of breath Additional Instructions: The patient was advised to follow up with their physician and return if they worsen. Med/Other Pt SpecificInfo: Other Disposition: 01 DISCHARGE HOME Condition: Stable Marquez Lobo MD Jun 07, 2017 11:27
--- NOTE | 2017-06-08 08:10 | EKG ---
Date Performed: 06/07/2017 Time Performed: 09:15:01 PTAGE: 57 years EKG: SINUS TACHYCARDIA WITH FREQUENT SUPRAVENTRICULAR PREMATURE COMPLEXES ARM LEADS REVERSED DEX TROCARDIA ABNORMAL ECG PREVIOUS TRACING : 10/08/2016 19.17 DOCTOR: Bertrand Koenig Interpretating Date/Time 06/08/2017 08:05:23
== END 2017-06-07 11:57 | disposition home or self-care (01) ==
LOC: NEPE 08:54
DX: E11.649 Type 2 diabetes mellitus with hypoglycemia without coma (principal); E78.00 Pure hypercholesterolemia, unspecified; I10 Essential (primary) hypertension; K21.9 Gastro-esophageal reflux disease without esophagitis; J44.9 Chronic obstructive pulmonary disease, unspecified; Z86.73 Personal history of transient ischemic attack (TIA), and cerebral infarction without residual deficits; M19.90 Unspecified osteoarthritis, unspecified site
CPT/HCPCS: 93005; 99283

== ENCOUNTER → 2017-06-14 | Outpatient (CLI) | payer OTHER ==
[~2017-06-14] MED LIST changes: -DIFL200T PO
[2017-06-14 10:20] LABS: HEMATOCRIT 34.4 % (39.0-51.0); MEAN CELL VOLUME 67.7 FL (80.0-100.0); MEAN CORPUSCULAR HEMOGLOBIN 21.8 PG (27.0-34.0); MEAN CORPUSCULAR HGB CONC 32.1 % (32.0-36.0); PLATELET COUNT 351 TH/MM3 (150-450); RED BLOOD COUNT 5.08 MIL/MM3 (4.50-5.90); RED CELL DISTRIBUTION WIDTH 19.1 % (11.6-17.2); REVIEW FLAG FINAL; WHITE BLOOD COUNT 9.4 TH/MM3 (4.0-11.0)
== END ==
LOC: CLAB 09:25
PROVIDERS: ATTEND Family Medicine
DX: D64.9 Anemia, unspecified (principal)
CPT/HCPCS: 36415; 85027

== ENCOUNTER → 2017-06-28 | Day surgery (SDC) | payer OTHER ==
[~2017-06-28] MED LIST changes: +ACETAMINOPHEN 1000 MG/100 ML 100 ML IV ONE; +BUPIVACAINE/EPINEPHRINE 0.5% PF 30 ML VIAL INFIL ONE; +LACTATED RINGER'S 1000 ML INJ 500 ML IV ONE; +LIDOCAINE 1.5%/EPINEPHrine 1:200,000 PF SOLN 30 ML AMP ONE; +MEPERIDINE HCL 25 MG/ML VIAL ONE; +MIDAZOLAM HCL 2 MG/2 ML VIAL ONE; +PROPOFOL 200 MG/20 ML AMP IV ONE; +SODIUM CHLORIDE 0.9% INJ 10 ML ONE; +ceFAZolin INJ 1,000 MG VIAL ONE; +oxyCODONE/ACETAMINOPHEN 5 MG/325 MG TAB ONE
--- NOTE | 2017-06-28 13:36 | TN ---
cc: MELANY LAU M.D. DATE OF SURGERY: 06/28/2017 PREOPERATIVE DIAGNOSIS 1. Colon cancer. 2. Situs inversus. 3. Small seroma midline wound. 4. In need of Infusaport. POSTOPERATIVE DIAGNOSIS 1. Colon cancer. 2. Situs inversus. 3. Small seroma midline wound. 4. In need of Infusaport. PROCEDURE 1. Placement of right-sided Infusaport under fluoroscopic guidance noting patient has dextrocardia. 2. Drainage of small seroma in the anterior midline wound. ANESTHESIA General. SURGEON Dr. Lau. INDICATION This is a pleasant gentleman who had a right-sided descending colon cancer as he has complete situs inversus. His oncologist advised him he would benefit from chemotherapy and he has asked me to place an Infusaport. Plans were made for above. He has a small seroma on the anterior abdominal wall that was planned to be drained as well. DETAILS OF PROCEDURE The patient was taken to the operating room and placed in the supine position. After anesthesia his sites are prepped with Betadine. A timeout is done. He is given preoperative antibiotics. We first direct our attention to the right side noting that he has dextrocardia. We anesthetize the skin with a Marcaine solution and cannulate the subclavian vein, and under fluoroscopic guidance guide the guidewire into the superior vena cava which is on the left side of the chest. A subcutaneous pocket is made. The introducer and dilator were then placed over the guidewire. Guidewire and dilator were removed. We then placed the catheter through the introducer and the introducer was removed. We then cut the catheter to about 22 cm so it lays in the left-sided superior vena cava and connect it to the port site without difficulty. It aspirates blood quite easily and is flushed with heparinized saline solution. The deep layers are then closed with 3-0 Vicryl and skin with 4-0 Vicryl. We then direct our attention to the abdominal wound. It is about 1 cm. We just simply unroof the skin and some clear slightly cloudy fluid is seen. It is cultured. We then irrigate this and place a sterile bandage over it as it only goes about 0.5 cm deep. The patient tolerated the procedure well. A chest x-ray postoperatively showed no pneumothorax in the right side Infusaport coursing into the superior vena cava. Melany Lau MD JDB/LEANDRA /1:13 PM /1:18 PM MTDLivier
== END | disposition home or self-care (01) ==
LOC: ESDC 08:46
PROVIDERS: ATTEND Surgery
DX: Z45.2 Encounter for adjustment and management of vascular access device (principal); C18.9 Malignant neoplasm of colon, unspecified; Q89.3 Situs inversus; S31.109A Unspecified open wound of abdominal wall, unspecified quadrant without penetration into peritoneal cavity, initial encounter; B95.7 Other staphylococcus as the cause of diseases classified elsewhere
CPT/HCPCS: 00400; 00532; 10140; 36561; 77001; 87070; 87077; 87186; 87205; C1788; J0131; J0690; J1642; J2175; J2250; J3010; J7120

== ENCOUNTER 2017-07-23 03:48 | Emergency (ER) | payer OTHER ==
[~2017-07-23] VITALS: Ht 185.4 cm; Wt 105.0 kg
[~2017-07-23 03:48] MED LIST changes: -ACETAMINOPHEN 1000 MG/100 ML 100 ML IV ONE; -BUPIVACAINE/EPINEPHRINE 0.5% PF 30 ML VIAL INFIL ONE; -LACTATED RINGER'S 1000 ML INJ 500 ML IV ONE; -LIDOCAINE 1.5%/EPINEPHrine 1:200,000 PF SOLN 30 ML AMP ONE; -MEPERIDINE HCL 25 MG/ML VIAL ONE; -MIDAZOLAM HCL 2 MG/2 ML VIAL ONE; -PROPOFOL 200 MG/20 ML AMP IV ONE; -SODIUM CHLORIDE 0.9% INJ 10 ML ONE; -ceFAZolin INJ 1,000 MG VIAL ONE; -oxyCODONE/ACETAMINOPHEN 5 MG/325 MG TAB ONE
[2017-07-23 03:50] VITALS: BP 129/80; PULSE 118; RESP 22; TEMP 98.1; O2SAT 96
[2017-07-23] MEDS ORDERED: DIPHTH/TETANUS/ACEL PERTUSSIS (BOOSTER) 0.5 ML VIAL/PFS IM ONE (04:00)
[2017-07-23] MEDS ORDERED: SODIUM CHLOR 0.9% 1000 ML INJ 1,000 ML IV ONE (04:00)
[2017-07-23] MEDS: ACETAMINOPHEN/HYDROcodone 325 MG/5 MG TAB PO ONE ×2 (04:30→06:23)
--- NOTE | 2017-07-23 04:34 | PD ---
Physical Exam Time Seen by Provider: 04:33 Data Data Last Documented VS Vital Signs Date Time Temp Pulse Resp B/P (MAP) Pulse Ox O2 Delivery O2 Flow Rate FiO2 07/23/17 03:50 98.1 118 22 129/80 (96) 96 Orders Orders Complete Blood Count With Diff (07/23/17 03:51) Comprehensive Metabolic Panel (07/23/17 03:51) Ct Brain W/O Iv Contrast(Rout) (07/23/17 ) Sodium Chlor 0.9% 1000 Ml Inj (Ns 1000 M (07/23/17 04:00) Anuz-Lkd-Ijnads (Booster) Inj (Boostrix (07/23/17 04:00) Acetamin-Hydrocod 325-5 Mg ([place] 5-325 (07/23/17 04:30) MDM Medical Record Reviewed: Yes Supervised Visit with ANTONIO: No Procedures Procedure Narrative LACERATION LOCATION: Left posterior scalp LENGTH: [2 cm NUMBER OF STITCHES/ELE: 2 ele] REPAIR: The area of the laceration was prepped with Betadine and sterilely draped. The wound was copiously irrigated and explored without evidence of foreign body, tendon injury or neurovascular injury. The wound was closed using ele. This was a single layer repair. A sterile dressing was applied. The patient was advised to keep the dressing clean and dry. Patient tolerated the procedure well. Condition: Stable Dayana Constantino Jul 23, 2017 04:34
--- NOTE | 2017-07-23 04:35 | PD ---
Physical Exam Time Seen by Provider: 04:10 Narrative LACERATION LOCATION: Right anterior forehead LENGTH: 10 cm curved NUMBER OF STITCHES/TRUONG: 7 REPAIR: The area of the laceration was prepped with Betadine and draped with a clean field. The laceration was infiltrated with Lidocaine with epinephrine. The wound was copiously irrigated and explored without evidence of foreign body, tendon injury or neurovascular injury. The wound was closed using 5-0 prolene and Dermabond. This was a single layer repair. The patient was advised to keep the dressing clean and dry. Patient tolerated the procedure well. Data Data Last Documented VS Vital Signs Date Time Temp Pulse Resp B/P (MAP) Pulse Ox O2 Delivery O2 Flow Rate FiO2 07/23/17 03:50 98.1 118 22 129/80 (96) 96 Orders Orders Complete Blood Count With Diff (07/23/17 03:51) Comprehensive Metabolic Panel (07/23/17 03:51) Ct Brain W/O Iv Contrast(Rout) (07/23/17 ) Sodium Chlor 0.9% 1000 Ml Inj (Ns 1000 M (07/23/17 04:00) Snov-Nor-Oqpggq (Booster) Inj (Boostrix (07/23/17 04:00) Acetamin-Hydrocod 325-5 Mg ([place] 5-325 (07/23/17 04:30) MDM Supervised Visit with ANTONIO: Mai Tan Jul 23, 2017 04:35
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
[2017-07-23 05:58] LABS: AUTOMATED NEUTROPHIL # 13.2 TH/MM3 (1.8-7.7); BASOPHIL # 0.1 TH/MM3 (0-0.2); BASOPHIL % 0.4 % (0.0-2.0); EOSINOPHIL # 0.1 TH/MM3 (0-0.4); EOSINOPHIL % 0.6 % (0.0-4.0); HEMATOCRIT 37.3 % (39.0-51.0); HEMO FLAGS DIFF FINAL; LYMPH % 7.7 % (9.0-44.0); LYMPHOCYTE # 1.2 TH/MM3 (1.0-4.8); MEAN CELL VOLUME 68.6 FL (80.0-100.0); MEAN CORPUSCULAR HEMOGLOBIN 21.3 PG (27.0-34.0); MONO % 5.3 % (0.0-8.0); PLATELET COUNT 302 TH/MM3 (150-450); RED BLOOD COUNT 5.43 MIL/MM3 (4.50-5.90); RED CELL DISTRIBUTION WIDTH 21.1 % (11.6-17.2); WHITE BLOOD COUNT 15.3 TH/MM3 (4.0-11.0)
[2017-07-23 06:09] LABS: ANION GAP 8 MEQ/L (5-15); AST (GOT) 15 U/L (15-37); BICARBONATE 23.4 MEQ/L (21.0-32.0); BLOOD UREA NITROGEN 20 MG/DL (7-18); CHLORIDE 104 MEQ/L (98-107); GLOMERULAR FILTRATION RATE 55 ML/MIN (>89); POTASSIUM 3.7 MEQ/L (3.5-5.1); SODIUM (NA) 135 MEQ/L (136-145)
[2017-07-23 06:11] LABS: ALT (GPT) 21 U/L (12-78)
[2017-07-23 06:12] LABS: ALKALINE PHOSPHATASE 86 U/L (45-117); TOTAL BILIRUBIN ADULT 0.3 MG/DL (0.2-1.0)
== END 2017-07-23 07:11 | disposition home or self-care (01) ==
LOC: NEPC 03:48
DX: S09.90XA Unspecified injury of head, initial encounter (principal); S01.81XA Laceration without foreign body of other part of head, initial encounter; S01.01XA Laceration without foreign body of scalp, initial encounter; W22.8XXA Striking against or struck by other objects, initial encounter; Z72.0 Tobacco use; Z23 Encounter for immunization
CPT/HCPCS: 12001; 12015; 70450; 80053; 85025; 90471; 90715; 99284; J7030

== ENCOUNTER 2017-08-02 15:11 | Emergency (ER) | payer OTHER ==
[~2017-08-02] VITALS: Ht 185.4 cm; Wt 100.0 kg
[~2017-08-02 15:11] MED LIST changes: -CIPR-9 PO; -METR-1 PO
[2017-08-02 15:12] VITALS: BP 131/82; PULSE 97; RESP 20; TEMP 98.6; O2SAT 98
--- NOTE | 2017-08-02 15:23 | PD ---
HPI Chief Complaint: Wound/Suture/Staple Re-Check Time Seen by Provider: 15:22 Travel History International Travel<30 days: No Contact w/Intl Traveler<30days: No Traveled to known affect area: No History of Present Illness HPI 57-year-old male presents to emergency department requesting suture removal from his right forehead and staple removal from posterior scalp. Says they've been in for 8 days or more. Denies drainage from the site. Denies fever, vomiting. No aggravating or relieving factors. Has no other medical complaints. Symptoms are mild in severity. No known allergies. No other modifying factors or associated signs and symptoms. PFSH Past Medical History Hx Anticoagulant Therapy: Yes (ASA 325MG) Arthritis: Yes Asthma: No Autoimmune Disease: No Blood Disorders: No Anxiety: No Depression: Yes Heart Rhythm Problems: No Cancer: Yes (COLON) Cardiovascular Problems: Yes (HTN) High Cholesterol: Yes Chemotherapy: No Chest Pain: No Congestive Heart Failure: No COPD: Yes Cerebrovascular Accident: Yes Diabetes: Yes Diminished Hearing: No Diverticulitis: Yes Endocrine: No Gastrointestinal Disorders: Yes (HIATAL HERNIA; ABD HERNIA, ULCER) GERD: Yes Genitourinary: No Hepatitis: No Hiatal Hernia: Yes Hypertension: Yes Immune Disorder: No Implanted Vascular Access Dvce: No Musculoskeletal: Yes (ARTHRITIS) Neurologic: Yes (VERTIGO ) Psychiatric: No Reproductive: No Respiratory: Yes (ASTHMA, COPD) Immunizations Current: Yes Migraines: No Myocardial Infarction: No Radiation Therapy: No Seizures: Yes ( A KID) Sleep Apnea: Yes Thyroid Disease: No Triglycerides - High: Yes Ulcer: Yes Past Surgical History Abdominal Surgery: Yes (12/11 LAP HIATAL HERNIA; 06/10 REPAIR INCISIONAL HERNIA, SX TO REMOVE CA MASS) Body Medical Devices: MESH Cardiac Surgery: No Ear Surgery: No Endocrine Surgery: No Eye Surgery: No Genitourinary Surgery: No Gynecologic Surgery: No Joint Replacement: No Oral Surgery: Yes (EGD 09/09) Pacemaker: No Thoracic Surgery: No Other Surgery: Yes (lap hiatal hernia repair) Social History Alcohol Use: Yes (ONCE A MONTH) Tobacco Use: Yes ("A FEW PER DAY") Substance Use: No Allergies-Medications (Allergen,Severity, Reaction): Coded Allergies: No Known Allergies (Verified , 08/02/17) Reported Meds & Prescriptions Reported Meds & Active Scripts Active Percocet (Oxycodone-Acetaminophen) 10-325 mg Tab 1 Tab PO Q6H PRN Pantoprazole (Pantoprazole Sodium) 40 Mg Tab 40 Mg PO DAILY Lovastatin 40 Mg Tab 40 Mg PO DAILY Metformin (Metformin HCl) 500 Mg Tab 500 Mg PO BIDPC With meals Lisinopril 20 Mg Tab 20 Mg PO BID Glipizide 5 Mg Tab 5 Mg PO DAILY Take 30 minutes before a meal Reported Proventil Hfa 6.7 GM Inh (Albuterol Sulfate) 90 Mcg/Act Aer 1 Puff INH Q4H PRN Aspirin 325 Mg Tab 325 Mg PO DAILY Review of Systems Except as stated in HPI: all other systems reviewed are Neg Physical Exam Narrative GENERAL: Well-nourished, well-developed male patient, in no acute distress; afebrile, nontoxic-appearing SKIN: Warm and dry. Right forehead wound is well approximated with sutures intact without erythema, edema, drainage. Left posterior scalp wound with ele intact without erythema, edema, drainage. No signs of infection. HEAD: Atraumatic. Normocephalic. EYES: Pupils equal and round. No scleral icterus. No injection or drainage. ENT: Mucosa pink and moist. Airway patent. NECK: Trachea midline. CARDIOVASCULAR: Regular rate. RESPIRATORY: No accessory muscle use. GASTROINTESTINAL: Obese. MUSCULOSKELETAL: No obvious deformities. No clubbing. No cyanosis. No edema. NEUROLOGICAL: Awake and alert. Oriented 3. No obvious cranial nerve deficits. Motor grossly within normal limits. Normal speech. PSYCHIATRIC: Appropriate mood and affect; insight and judgment normal. Data Data Last Documented VS Vital Signs Date Time Temp Pulse Resp B/P (MAP) Pulse Ox O2 Delivery O2 Flow Rate FiO2 08/02/17 15:12 98.6 97 20 131/82 (98) 98 Room Air MDM Medical Decision Making Medical Screen Exam Complete: Yes Emergency Medical Condition: Yes Medical Record Reviewed: Yes Differential Diagnosis Stitches removal, stable removal, wound recheck, medical clearance Narrative Course 57-year-old male with encounter for suture removal and staple removal. Sutures and ele are been intact since July 23. No signs of infection. Sutures and ele removed. Patient tolerated well. Instructed patient to follow up with primary care provider. Patient verbalizes understanding and agreement with treatment plan. Patient is medically cleared and stable for discharge. Discussed reasons to return to the emergency department. Patient agrees with treatment plan. The patients vital signs are stable and the patient is stable for outpatient follow-up and treatment. Patient discharged home, stable and in no acute distress. Diagnosis Primary Impression: Encounter for removal of sutures Additional Impression: Encounter for staple removal Referrals: Primary Care Physician Patient Instructions: General Instructions, Stitches Removal (ED) Additional Instructions: Ibuprofen or Tylenol instructed not needed for pain Follow-up with primary care provider Return to the emergency department immediately if worsening of symptoms Med/Other Pt SpecificInfo: No Meds Exist/No RX given Disposition: 01 DISCHARGE HOME Condition: Stable Phoung Ellis Aug 02, 2017 15:23
== END 2017-08-02 16:46 | disposition home or self-care (01) ==
LOC: NEPK 15:11
DX: Z48.02 Encounter for removal of sutures (principal)
CPT/HCPCS: 99281

== ENCOUNTER 2017-08-22 13:00 | Emergency (ER) | payer OTHER ==
[~2017-08-22 13:00] MED LIST changes: +ASPI-183 PO; -ASPI325T PO
[2017-08-22 13:01] VITALS: BP 148/67; PULSE 98; RESP 15; TEMP 98.2; O2SAT 98
--- NOTE | 2017-08-22 14:08 | PD ---
Physical Exam Date Seen by Provider: Aug 22, 2017 Time Seen by Provider: 14:07 Narrative 57-year-old male presents with right eye pain for the past 2 days. Patient feels he may have gotten a piece of wood in all working on some with blood work project. Patient states his pain is a 10. He states his vision is somewhat blurry in the right. No discharge. Data Data Last Documented VS Vital Signs Date Time Temp Pulse Resp B/P (MAP) Pulse Ox O2 Delivery O2 Flow Rate FiO2 08/22/17 13:01 98.2 98 15 148/67 (94) 98 MDM Medical Record Reviewed: Yes Supervised Visit with ANTONIO: Yes Narrative Course Vital signs are stable. Patient awaiting bed placement. Condition: Stable Everett Ricks Aug 22, 2017 14:08
--- NOTE | 2017-08-22 15:20 | PD ---
HPI Chief Complaint: Eye Problems/Injury Time Seen by Provider: 15:19 Travel History International Travel<30 days: No Contact w/Intl Traveler<30days: No Traveled to known affect area: No PFSH Past Medical History Hx Anticoagulant Therapy: Yes (ASA 325MG) Arthritis: Yes Asthma: No Autoimmune Disease: No Blood Disorders: No Anxiety: No Depression: Yes Heart Rhythm Problems: No Cancer: Yes (COLON) Cardiovascular Problems: Yes (HTN) High Cholesterol: Yes Chemotherapy: No Chest Pain: No Congestive Heart Failure: No COPD: Yes Cerebrovascular Accident: Yes Diabetes: Yes Patient Takes Glucophage: Yes Diminished Hearing: No Diverticulitis: Yes Endocrine: No Gastrointestinal Disorders: Yes (HIATAL HERNIA; ABD HERNIA, ULCER) GERD: Yes Genitourinary: No Hepatitis: No Hiatal Hernia: Yes Hypertension: Yes Immune Disorder: No Implanted Vascular Access Dvce: No Medical other: Yes (GERD, HX ULCERS, SEIZURES , HEART, LIVER AND OTHER ORGANS ON OPPOSITE SIDE) Musculoskeletal: Yes (ARTHRITIS) Neurologic: Yes (VERTIGO ) Psychiatric: No Reproductive: No Respiratory: Yes (ASTHMA, COPD) Immunizations Current: Yes Migraines: No Myocardial Infarction: No Radiation Therapy: No Seizures: Yes Sleep Apnea: Yes Thyroid Disease: No Triglycerides - High: Yes Ulcer: Yes Tetanus Vaccination: < 5 Years Influenza Vaccination: No Past Surgical History Abdominal Surgery: Yes (12/11 LAP HIATAL HERNIA; 06/10 REPAIR INCISIONAL HERNIA, SX TO REMOVE CA MASS) Body Medical Devices: MESH Cardiac Surgery: No Ear Surgery: No Endocrine Surgery: No Eye Surgery: No Genitourinary Surgery: No Gynecologic Surgery: No Joint Replacement: No Oral Surgery: Yes (EGD 09/09) Pacemaker: No Thoracic Surgery: No Other Surgery: Yes (lap hiatal hernia repair) Social History Alcohol Use: Yes (ONCE A MONTH) Tobacco Use: Yes ("A FEW PER DAY") Substance Use: No Allergies-Medications (Allergen,Severity, Reaction): Coded Allergies: No Known Allergies (Verified , 08/22/17) Reported Meds & Prescriptions Reported Meds & Active Scripts Active Percocet (Oxycodone-Acetaminophen) 10-325 mg Tab 1 Tab PO Q6H PRN Pantoprazole (Pantoprazole Sodium) 40 Mg Tab 40 Mg PO DAILY Lovastatin 40 Mg Tab 40 Mg PO DAILY Metformin (Metformin HCl) 500 Mg Tab 500 Mg PO BIDPC With meals Lisinopril 20 Mg Tab 20 Mg PO BID Glipizide 5 Mg Tab 5 Mg PO DAILY Take 30 minutes before a meal Reported Proventil Hfa 6.7 GM Inh (Albuterol Sulfate) 90 Mcg/Act Aer 1 Puff INH Q4H PRN Aspirin 325 Mg Tab 325 Mg PO DAILY Data Data Last Documented VS Vital Signs Date Time Temp Pulse Resp B/P (MAP) Pulse Ox O2 Delivery O2 Flow Rate FiO2 08/22/17 15:32 08/22/17 13:01 98.2 98 15 98 Orders Orders Proparacaine 0.5% Opth Soln (Alcaine 0.5 (08/22/17 15:30) MDM Medical Decision Making Medical Screen Exam Complete: Yes Emergency Medical Condition: Yes Medical Record Reviewed: Yes Condition: Stable Phuong Ellis Aug 22, 2017 15:20
[2017-08-22] MEDS ORDERED: PROPARACAINE HCL 0.5% OPHT SOLN 15 ML BTL RIGHT EYE ONE (15:30)
== END 2017-08-22 15:30 | disposition left against medical advice (07) ==
LOC: NEPK 13:00
DX: H57.11 Ocular pain, right eye (principal); H53.8 Other visual disturbances; Z53.20 Procedure and treatment not carried out because of patient's decision for unspecified reasons
CPT/HCPCS: 99282

== ENCOUNTER 2017-11-26 10:39 | Inpatient (IN) | payer OTHER ==
[~2017-11-26] VITALS: Ht 185.4 cm; Wt 106.6 kg
[2017-11-26] VITALS (9 sets, daily range): BP systolic 139–175; BP diastolic 86–119; PULSE 17–103; RESP 18–28; TEMP 95.6–98.7; O2SAT 91–97
[2017-11-26] MEDS ORDERED: SODIUM CHLOR 0.9% 1000 ML INJ 1,000 ML IV SCH (11:08)
--- NOTE | 2017-11-26 11:08 | PD ---
HPI Chief Complaint: Fall Time Seen by Provider: 11:04 Travel History International Travel<30 days: No Contact w/Intl Traveler<30days: No Traveled to known affect area: No History of Present Illness HPI 57-year-old male presents to emergency department status post trip and fall 2 days ago with contusion to the left anterior ribs from a corner of a dresser. Patient has had increasing pain, and shortness of breath since that time. Patient also reports increasing right lower quadrant tenderness which she 's had over the past 2 weeks. He has a history of colon cancer treated approximately one year ago. He states he is moving his bowels and denies any black tarry stools or diogenes blood. He is short of breath and in distress secondary to his rib pain more than abdominal pain. He denies nausea or vomiting. He denies recent fever. He is on oxygen. Pain is 8 out of 10. Worse with cough or movement. He has no known drug allergies. PFSH Past Medical History Hx Anticoagulant Therapy: Yes (ASA 325MG) Arthritis: Yes Asthma: No Autoimmune Disease: No Blood Disorders: No Anxiety: No Depression: Yes Heart Rhythm Problems: No Cancer: Yes (COLON) Cardiovascular Problems: Yes (HTN) High Cholesterol: Yes Chemotherapy: No Chest Pain: No Congestive Heart Failure: No COPD: Yes Cerebrovascular Accident: Yes Diabetes: Yes Patient Takes Glucophage: Yes (metformin) Diminished Hearing: No Diverticulitis: Yes Endocrine: No Gastrointestinal Disorders: Yes (HIATAL HERNIA; ABD HERNIA, ULCER) GERD: Yes Genitourinary: No Hepatitis: No Hiatal Hernia: Yes Hypertension: Yes Immune Disorder: No Implanted Vascular Access Dvce: No Medical other: Yes (GERD, HX ULCERS, SEIZURES , HEART, LIVER AND OTHER ORGANS ON OPPOSITE SIDE) Musculoskeletal: Yes (ARTHRITIS) Neurologic: Yes (VERTIGO ) Psychiatric: No Reproductive: No Respiratory: Yes (ASTHMA, COPD) Immunizations Current: Yes Migraines: No Myocardial Infarction: No Radiation Therapy: No Seizures: Yes Sleep Apnea: Yes Thyroid Disease: No Triglycerides - High: Yes Ulcer: Yes Past Surgical History Abdominal Surgery: Yes (12/11 LAP HIATAL HERNIA; 06/10 REPAIR INCISIONAL HERNIA, SX TO REMOVE CA MASS) Body Medical Devices: MESH Cardiac Surgery: No Ear Surgery: No Endocrine Surgery: No Eye Surgery: No Genitourinary Surgery: No Gynecologic Surgery: No Joint Replacement: No Oral Surgery: Yes (EGD 09/09) Pacemaker: No Thoracic Surgery: No Other Surgery: Yes (lap hiatal hernia repair) Social History Alcohol Use: Yes (ONCE A MONTH) Tobacco Use: Yes ("A FEW PER DAY") Substance Use: No Allergies-Medications (Allergen,Severity, Reaction): Coded Allergies: No Known Allergies (Verified Allergy, Unknown, 11/26/17) Reported Meds & Prescriptions Reported Meds & Active Scripts Active Percocet (Oxycodone-Acetaminophen) 10-325 mg Tab 1 Tab PO Q6H PRN Pantoprazole (Pantoprazole Sodium) 40 Mg Tab 40 Mg PO DAILY Lovastatin 40 Mg Tab 40 Mg PO DAILY Metformin (Metformin HCl) 500 Mg Tab 500 Mg PO BIDPC With meals Lisinopril 20 Mg Tab 20 Mg PO BID Glipizide 5 Mg Tab 5 Mg PO DAILY Take 30 minutes before a meal Reported Proventil Hfa 6.7 GM Inh (Albuterol Sulfate) 90 Mcg/Act Aer 1 Puff INH Q4H PRN Aspirin 325 Mg Tab 325 Mg PO DAILY Review of Systems Except as stated in HPI: all other systems reviewed are Neg General / Constitutional: No: Fever, Chills Eyes: No: Visual changes HENT: No: Headaches Cardiovascular: Positive: Chest Pain or Discomfort, Dyspnea on exertion ( chronically.), No: Palpitations, Irregular Rhythm, Tachycardia, Diaphoresis, Syncope Respiratory: Positive: Shortness of Breath, Pleuritic Pain, No: Cough, Wheezing , Sneezing, Orthopnea (see history present illness), Hemoptysis Gastrointestinal: Positive: Abdominal Pain (see history present illness), Other (history: Cancer.), No: Nausea, Vomiting, Diarrhea, Hematemesis, Hematochezia, Constipation, Changes in Bowel Habits, Indigestion, Dysphagia, Loss of Appetite Genitourinary: No: Dysuria Musculoskeletal: No: Pain Skin: No Rash Neurologic: No: Weakness Psychiatric: No: Depression Endocrine: No: Polydipsia Hematologic/Lymphatic: No: Easy Bruising Physical Exam Narrative GENERAL: Patient appears in mild to moderate distress. SKIN: Warm and dry. Normal color. Mild diaphoresis. Patient does have bruising over the left anterior lateral chest wall just below the nipple with localized tenderness no palpable crepitus, no subcutaneous emphysema. HEAD: Atraumatic. Normocephalic. EYES: Pupils equal and round. No scleral icterus. No injection or drainage. ENT: No nasal bleeding or discharge. Mucous membranes pink and moist. Pharynx is clear. Airway is patent. TMs are clear. NECK: Trachea midline. No bony tenderness or step-off. Range of motion is full. CARDIOVASCULAR: Regular rate and rhythm. No murmurs gallops or rubs appreciated. RESPIRATORY: No accessory muscle use. Difficult to assess to auscultation. Patient is tachypneic, and obviously responding to pleuritic pain. Patient has a lot of gurgling with his breathing. He is able to speak in short sentences however. Patient is noted to be 93% on 2 L via nasal cannula. Breath sounds equal bilaterally. GASTROINTESTINAL: Abdomen soft, mild to moderate nonspecific right lower quadrant tenderness, nondistended. No point tenderness or rebound. Hepatic and splenic margins not palpable. MUSCULOSKELETAL: Extremities without clubbing, cyanosis, or edema. No obvious deformities. NEUROLOGICAL: Awake and alert. No obvious cranial nerve deficits. Motor grossly within normal limits. Five out of 5 muscle strength in the arms and legs. Normal speech. PSYCHIATRIC: Appropriate mood and affect; insight and judgment normal. Data Data Last Documented VS Vital Signs Date Time Temp Pulse Resp B/P (MAP) Pulse Ox O2 Delivery O2 Flow Rate FiO2 11/26/17 13:04 60 18 162/98 (119) 97 Nasal Cannula 3.00 11/26/17 10:[address] Thorax/ Chest W Iv Contrast (11/26/17 11:08) Ct Abd/Pel W Iv Contrast(Rout) (11/26/17 11:08) Complete Blood Count With Diff (11/26/17 11:08) Comprehensive Metabolic Panel (11/26/17 11:08) Lipase (11/26/17 11:08) Lactic Acid (11/26/17 11:08) Prothrombin Time / Inr (Pt) (11/26/17 11:08) Act Partial Throm Time (Ptt) (11/26/17 11:08) Urinalysis - C+S If Indicated (11/26/17 11:08) Iv Access Insert/Monitor (11/26/17 11:08) Ecg Monitoring (11/26/17 11:08) Oximetry (11/26/17 11:08) Sodium Chlor 0.9% 1000 Ml Inj (Ns 1000 M (11/26/17 11:08) Sodium Chloride 0.9% Flush (Ns Flush) (11/26/17 11:15) Dicyclomine Inj (Bentyl Inj) (11/26/17 11:15) Ondansetron Inj (Zofran Inj) (11/26/17 11:15) Morphine Inj (Morphine Inj) (11/26/17 11:15) Albuterol-Ipratropium Neb (Duoneb Neb) (11/26/17 12:30) Morphine Inj (Morphine Inj) (11/26/17 12:45) Iohexol 350 Inj (Omnipaque 350 Inj) (11/26/17 12:46) Hydromorphone Pf Inj (Dilaudid Pf Inj) (11/26/17 13:30) Consult General Surgery (11/26/17 ) (Hub Use Only)Inp Phy Cons/Ref (11/26/17 ) Admit To Inpatient (11/26/17 ) Code Status (11/26/17 13:50) Vital Signs (Adult) Q4H (11/26/17 13:50) Activity Oob Ad Eve (11/26/17 13:50) Bedside Glucose KOBY.CSUGAR (11/26/17 13:50) Supervisor Self Service Store / Telemetry .CONTINUOUS (11/26/17 13:50) Intake + Output KOBY.QSHIFT (11/26/17 13:50) Notify Dr: Other (11/26/17 13:50) Sodium Chlor 0.9% 1000 Ml Inj (Ns 1000 M (11/26/17 14:00) Sodium Chloride 0.9% Flush (Ns Flush) (11/26/17 14:00) Sodium Chloride 0.9% Flush (Ns Flush) (11/26/17 21:00) Acetaminophen (Tylenol) (11/26/17 14:00) Ondansetron Inj (Zofran Inj) (11/26/17 14:00) Basic Metabolic Panel (Bmp) (11/27/17 06:00) Complete Blood Count With Diff (11/27/17 06:00) Creatine Kinase (Cpk) (11/26/17 13:50) Creatine Kinase (Cpk) (11/26/17 19:50) Troponin I (11/26/17 13:50) Troponin I (11/26/17 19:50) Resp Oxygen Lupillo C Titrat 1-4 L (11/26/17 ) Pt Request For Service (11/26/17 13:50) Case Management Consult (11/26/17 13:50) Scd Bilateral/Knee High KOBY.BID (11/26/17 13:50) Naloxone Inj (Narcan Inj) (11/26/17 14:00) Sennosides (Senokot) (11/26/17 14:00) Bisacodyl Supp (Dulcolax Supp) (11/26/17 14:00) Lactulose Liq (Lactulose Liq) (11/26/17 14:00) Inpatient Certification (11/26/17 ) Lisinopril (Prinivil) (11/26/17 21:00) Pravastatin (Pravachol) (11/27/17 09:00) Pantoprazole (Protonix) (11/27/17 09:00) Admit Order (Ed Use Only) (11/26/17 13:58) Labs Laboratory Tests Test 11/26/17 11:11 11/26/17 11:15 11/26/17 12:58 White Blood Count 10.8 TH/MM3 Red Blood Count 6.12 MIL/MM3 Hemoglobin 14.2 GM/DL Hematocrit 44.6 % Mean Corpuscular Volume 72.9 FL Mean Corpuscular Hemoglobin 23.2 PG Mean Corpuscular Hemoglobin Concent 31.9 % Red Cell Distribution Width 24.1 % Platelet Count 233 TH/MM3 Mean Platelet Volume 8.4 FL Neutrophils (%) (Auto) 83.7 % Lymphocytes (%) (Auto) 10.3 % Monocytes (%) (Auto) 4.8 % Eosinophils (%) (Auto) 0.7 % Basophils (%) (Auto) 0.5 % Neutrophils # (Auto) 9.0 TH/MM3 Lymphocytes # (Auto) 1.1 TH/MM3 Monocytes # (Auto) 0.5 TH/MM3 Eosinophils # (Auto) 0.1 TH/MM3 Basophils # (Auto) 0.1 TH/MM3 CBC Comment DIFF FINAL Differential Comment Prothrombin Time 10.0 SEC Prothromb Time International Ratio 1.0 RATIO Activated Partial Thromboplast Time 24.7 SEC Blood Urea Nitrogen 11 MG/DL Creatinine 0.94 MG/DL Random Glucose 136 MG/DL Total Protein 7.5 GM/DL Albumin 3.5 GM/DL Calcium Level 8.4 MG/DL Alkaline Phosphatase 109 U/L Aspartate Amino Transf (AST/SGOT) 17 U/L Alanine Aminotransferase (ALT/SGPT) 22 U/L Total Bilirubin 0.4 MG/DL Sodium Level 139 MEQ/L Potassium Level 4.0 MEQ/L Chloride Level 106 MEQ/L Carbon Dioxide Level 26.0 MEQ/L Anion Gap 7 MEQ/L Estimat Glomerular Filtration Rate 83 ML/MIN Lactic Acid Level 1.2 mmol/L Lipase 115 U/L Urine Color LIGHT-YELLOW Urine Turbidity CLEAR Urine pH 6.0 Urine Specific [place] 1.009 Urine Protein NEG mg/dL Urine Glucose (UA) NEG mg/dL Urine Ketones NEG mg/dL Urine Occult Blood NEG Urine Nitrite NEG Urine Bilirubin NEG Urine Urobilinogen LESS THAN 2.0 MG/DL Urine Leukocyte Esterase NEG Urine Mucus FEW /lpf Microscopic Urinalysis Comment CULT NOT INDICATED MDM Medical Decision Making Medical Screen Exam Complete: Yes Emergency Medical Condition: Yes Medical Record Reviewed: Yes Differential Diagnosis Trip and fall. Multiple rib fracture. Chest wall contusion. Pneumothorax. Hemothorax. Abdominal pain. Appendicitis. Colon cancer. Diverticulitis. Narrative Course Patient is in pain but medically stable at time of exam. IV access is obtained the patient is given 2 mg morphine IV as well as 4 mg Zofran IV. Patient is given 10 mg Bentyl IM. Labs ordered including CBC, CMP, lipase, lactic acid, and urinalysis. CT with IV contrast of the thorax and chest is ordered, as well as CT of the abdomen and pelvis with IV contrast. Patient is given 500 mL normal saline bolus. CBC is unremarkable. Coagulation studies are normal. Lactic acid is 1.2. Chemistries are unremarkable except GFR of 83, random glucose 136, calcium 8.4. ABD CT shows no acute findings, but with enlarging anterior midline fluid collection without signs surrounding wall thickening to suggest abscess. Chest CT shows: CONCLUSION: 1. Acute left sixth and seventh anterior rib fractures. 2. Small left pleural effusion and mild bilateral atelectasis. 3. Sinus inversus again noted. Patient is discussed with Dr. Mendoza who evaluates the patient as well. Patient is felt to require admission for observation for pain control for his 2 rib fractures in the left chest wall, and call was placed to Dr. Lau's office and Dr. Alvares was consulted by Dr. Mendoza regarding the seroma in the anterior abdomen. He recommended admission with consult to Dr. Alvares. Patient was given Dilaudid 2 mg IV for his ongoing pain complaints. Call was placed to the hospitalist after patient was discussed with Dr. Pat who felt he could be admitted under the hospitalist, and did not warrant trauma surgeon admission at this time. Diagnosis Primary Impression: Ribs, multiple fractures Qualified Codes: S22.49XA - Multiple fractures of ribs, unspecified side, initial encounter for closed fracture Additional Impressions: Fall Qualified Codes: W19.XXXA - Unspecified fall, initial encounter Contusion, chest wall Qualified Codes: S20.219A - Contusion of unspecified front wall of thorax, initial encounter Abdominal wall seroma Qualified Codes: T88.8XXA - Other specified complications of surgical and medical care, not elsewhere classified, initial encounter; T79.2XXA - Traumatic secondary and recurrent hemorrhage and seroma, initial encounter Admitting Information Admitting Physician Requests: Observation Condition: Stable Everett Ricks Nov 26, 2017 11:08
[2017-11-26] MEDS ORDERED: MORPHINE SULFATE 2 MG/ML INJ IV PUSH ONE ×2 (11:15→12:45)
[2017-11-26] MEDS ORDERED: SODIUM CHLORIDE 0.9% FLUSH 10 ML FLUSH IV FLUSH PRN ×2 (11:15→14:00)
[2017-11-26] MEDS ORDERED: ONDANSETRON HCL 4 MG/2 ML VIAL IV PUSH ONE (11:15)
[2017-11-26] MEDS ORDERED: DICYCLOMINE HCL 20 MG/2 ML VIAL IM ONE (11:15)
[2017-11-26 11:43] LABS: BASOPHIL # 0.1 TH/MM3 (0-0.2); BASOPHIL % 0.5 % (0.0-2.0); EOSINOPHIL # 0.1 TH/MM3 (0-0.4); EOSINOPHIL % 0.7 % (0.0-4.0); HEMATOCRIT 44.6 % (39.0-51.0); HEMOGLOBIN 14.2 GM/DL (13.0-17.0); LYMPH % 10.3 % (9.0-44.0); LYMPHOCYTE # 1.1 TH/MM3 (1.0-4.8); MEAN CELL VOLUME 72.9 FL (80.0-100.0); MEAN CORPUSCULAR HEMOGLOBIN 23.2 PG (27.0-34.0); MEAN CORPUSCULAR HGB CONC 31.9 % (32.0-36.0); MEAN PLATELET VOLUME 8.4 FL (7.0-11.0); MONO % 4.8 % (0.0-8.0); MONOCYTE # 0.5 TH/MM3 (0-0.9); NEUT % 83.7 % (16.0-70.0); PLATELET COUNT 233 TH/MM3 (150-450); RED BLOOD COUNT 6.12 MIL/MM3 (4.50-5.90); RED CELL DISTRIBUTION WIDTH 24.1 % (11.6-17.2); WHITE BLOOD COUNT 10.8 TH/MM3 (4.0-11.0)
[2017-11-26 12:04] LABS: ALBUMIN 3.5 GM/DL (3.4-5.0); ALT (GPT) 22 U/L (12-78); AST (GOT) 17 U/L (15-37); BLOOD UREA NITROGEN 11 MG/DL (7-18); CALCIUM 8.4 MG/DL (8.5-10.1); CHLORIDE 106 MEQ/L (98-107); CREATININE 0.94 MG/DL (0.60-1.30); GLOMERULAR FILTRATION RATE 83 ML/MIN (>89); GLUCOSE,RANDOM 136 MG/DL (74-106); LIPASE 115 U/L (73-393); SODIUM (NA) 139 MEQ/L (136-145)
[2017-11-26 12:06] LABS: ALKALINE PHOSPHATASE 109 U/L (45-117); TOTAL BILIRUBIN ADULT 0.4 MG/DL (0.2-1.0); TOTAL PROTEIN 7.5 GM/DL (6.4-8.2)
[2017-11-26] MEDS ORDERED: RESP: ALBUTEROL 2.5 MG/IPRATROPIUM 0.5 MG NEB (SCH) INH ONE (12:30)
[2017-11-26] MEDS ORDERED: IOHEXOL 350 MG/ML 10 ML VIAL (for RAD DIAG) IVCONTRAST ONE (12:46)
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
--- NOTE | 2017-11-26 12:58 | RADRPT ---
EXAM DATE/TIME: 11/26/2017 12:21 [facility] COMPARISON: CT ABDOMEN & PELVIS W CONTRAST, August 02, 2017, 14:51. INDICATIONS : Fell left rib pain and abdominal pain. Sidus inversus. IV CONTRAST: 97 cc Omnipaque 350 (iohexol) IV ; Cumulative dose for multiple exams. ORAL CONTRAST: No oral contrast ingested. RADIATION DOSE: 18.29 CTDIvol (mGy) ; Combined studies - Thorax/Abdomen/Pelvis MEDICAL HISTORY : Cerebrovascular disease. Seizures. Carcinoma, colon.HTN, Hiatial hernia, GERD, Diabetes, chemo SURGICAL HISTORY : mass in colon, Port placed ENCOUNTER: Initial ACUITY: 2 days PAIN SCALE: 10/10 LOCATION: Left abdomen TECHNIQUE: Volumetric scanning of the abdomen and pelvis was performed. Using automated exposure control and ad justment of the mA and/or kV according to patient size, radiation dose was kept as low as reasonably achievable to obtain optimal diagnostic quality images. DICOM format image data is available electro nically for review and comparison. FINDINGS: LOWER LUNGS: There is a new small left-sided pleural effusion. The lung bases are otherwise clear. LIVER: There is complete situs inversus present with the liver identified within the left upper quadrant. No evidence of liver laceration or focal abnormality. SPLEEN: The spleen is seen within the right upper quadrant. No abnormality noted. PANCREAS: Within normal limits. KIDNEYS: Normal in size and shape. There is no mass, stone or hydronephrosis. ADRENAL GLANDS: Within normal limits. VASCULAR: There is no aortic aneurysm. BOWEL/MESENTERY: Complete situs inversus. There is scattered diverticuli identified within the descending colon. No ev idence of adjacent inflammatory change. ABDOMINAL WALL: There is a midline seroma present which appears increased in size as compared to the prior exam. The maximum anteroposterior measurement now measures 6.9 cm x 11 cm transversely as compared to 2.3 x 7.2 cm. Craniocaudally the fluid collection measures 12.5 cm as compared to 9.5 cm previously. RETROPERITONEUM: There is no lymphadenopathy. BLADDER: No wall thickening or mass. REPRODUCTIVE: Within normal limits. INGUINAL: There is no lymphadenopathy or hernia. MUSCULOSKELETAL: No evidence of rib fracture. CONCLUSION: Complete situs inversus. There is a small left-sided pleural effusion with no visible rib fracture. N o evidence of liver laceration. The anterior midline fluid collection has increased in size however, there is no surrounding wall thickening to suggest abscess. Jocelyn Dugan MD on November 26, 2017 at 12:51 Board Certified Radiologist. This report was verified electronically.
[2017-11-26] MEDS ORDERED: HYDROmorphone HCL PF 2 MG/ML VIAL IV PUSH ONE (13:30)
[2017-11-26 13:37] LABS: BILIRUBIN, URINE NEG (NEG); BLOOD, URINE NEG (NEG); GLUCOSE,URINE NEG (NEG); KETONE, URINE NEG (NEG); MUCUS URINE FEW /lpf (OCC); NITRITE,URINE NEG (NEG); URINE COLOR LIGHT-YELLOW (YELLW/STRAW); URINE LEUKOCYTE ESTERASE NEG (NEG)
--- NOTE | 2017-11-26 13:57 | HHI.HP ---
HPI Service [facility] Primary Care Physician No Primary Care Physician Admission Diagnosis Diagnoses: Chief Complaint: Status post Fall Travel History International Travel<30 Days: No Contact w/Intl Traveler <30 Da: No Traveled to Known Affected Are: No History of Present Illness This is a pleasant 57-year-old male presents to emergency department status post trip and fall 2 days ago with contusion to the left anterior ribs from a corner of a dresser. Patient has had increasing pain, and shortness of breath since that time. Patient also reports increasing right lower quadrant tenderness which she's had over the past 2 weeks. He has a history of colon cancer treated approximately one year ago. He states he is moving his bowels and denies any black tarry stools or diogenes blood. He is short of breath and in distress secondary to his rib pain more than abdominal pain. He denies nausea or vomiting. He denies recent fever. He is on oxygen. Pain is 8 out of 10. Worse with cough or movement. He has no known drug allergies. Stable in his bedroom, discussed with ER physician, will need to control his Pain and aggressive respiratory toilet to avoid Pneumonia. Review of Systems Constitutional: DENIES: Fever, Chills, Change in appetite Endocrine: DENIES: Heat/cold intolerance Eyes: DENIES: Blurred vision, Eye pain Cardiovascular: COMPLAINS OF: Chest pain Except as stated in HPI: all other systems reviewed are Neg Past Family Social History Past Medical History OA Depression Colon Cancer history Hypertension Hyperlipidemia COPD DM II CVA by history diverticulitis Hiatal hernia Abdominal hernia GERD Seizure disorder CASEY Past Surgical History Laparoscopic hiatal hernia repair, repair of incisional hernia Colon tumor resection Mesh in place Reported Medications Reported Meds & Active Scripts Active Percocet (Oxycodone-Acetaminophen) 10-325 mg Tab 1 Tab PO Q6H PRN Pantoprazole (Pantoprazole Sodium) 40 Mg Tab 40 Mg PO DAILY Lovastatin 40 Mg Tab 40 Mg PO DAILY Metformin (Metformin HCl) 500 Mg Tab 500 Mg PO BIDPC With meals Lisinopril 20 Mg Tab 20 Mg PO BID Glipizide 5 Mg Tab 5 Mg PO DAILY Take 30 minutes before a meal Reported Proventil Hfa 6.7 GM Inh (Albuterol Sulfate) 90 Mcg/Act Aer 1 Puff INH Q4H PRN Aspirin 325 Mg Tab 325 Mg PO DAILY Allergies: Coded Allergies: No Known Allergies (Verified Allergy, Unknown, 11/26/17) Active Ordered Medications Current Medications Medications (Trade) Dose Ordered Sig/[place] Route Start Time Stop Time Status Last Admin Sodium Chloride 1,000 ml @ 100 mls/hr Q10H IV 11/26/17 14:00 11/26/17 14:51 (NS Flush) 2 ml UNSCH PRN IV FLUSH 11/26/17 14:00 (NS Flush) 2 ml BID IV FLUSH 11/26/17 21:00 (Tylenol) 650 mg Q4H PRN PO 11/26/17 14:00 (Zofran Inj) 4 mg Q6H PRN IVP 11/26/17 14:00 (Narcan Inj) 0.4 mg UNSCH PRN IV PUSH 11/26/17 14:00 (Senokot) 17.2 mg Q12H PRN PO 11/26/17 14:00 (Dulcolax Supp) 10 mg DAILY PRN RECTAL 11/26/17 14:00 (Lactulose Liq) 30 ml DAILY PRN PO 11/26/17 14:00 (Prinivil) 20 mg BID PO 11/26/17 21:00 (Pravachol) 40 mg DAILY PO 11/27/17 09:00 (Protonix) 40 mg DAILY PO 11/27/17 09:00 (NovoLOG SUPPLEMENTAL SCALE) 1 ACHS SLIDING SCALE SQ 11/26/17 17:00 (Mucinex Er) 600 mg BID PO 11/26/17 21:00 (Duoneb Neb) 1 ampule Q4HR NEB NEB 11/26/17 16:00 (Dilaudid Pf Inj) 1 mg Q4H PRN IV PUSH 11/26/17 14:15 ([place] 5-325 Mg) 1 tab Q4H PRN PO 11/26/17 14:15 (D50w (Vial) Inj) 50 ml UNSCH PRN IV PUSH 11/26/17 14:15 (Glucagon Inj) 1 mg UNSCH PRN OTHER 11/26/17 14:15 Family History Sister with DM II Social History alcohol abuse history tobacco dependence Pain syndrome and narcotic dependence Physical Exam Vital Signs Vital Signs Date Time Temp Pulse Resp B/P (MAP) Pulse Ox O2 Delivery O2 Flow Rate FiO2 11/26/17 13:04 60 18 162/98 (119) 97 Nasal Cannula 3.00 11/26/17 12:42 95 Nasal Cannula 2.00 11/26/17 11:33 96 Nasal Cannula 2.00 11/26/17 11:06 91 24 93 Room Air 11/26/17 10:40 98.1 103 28 175/119 (137) 91 Physical Exam GENERAL: Patient appears in mild to moderate distress. SKIN: Warm and dry. Normal color. Mild diaphoresis. Patient does have bruising over the left anterior lateral chest wall just below the nipple with localized tenderness no palpable crepitus, no subcutaneous emphysema. HEAD: Atraumatic. Normocephalic. EYES: Pupils equal and round. No scleral icterus. No injection or drainage. ENT: No nasal bleeding or discharge. Mucous membranes pink and moist. Pharynx is clear. Airway is patent. TMs are clear. NECK: Trachea midline. No bony tenderness or step-off. Range of motion is full. CARDIOVASCULAR: Regular rate and rhythm. No murmurs gallops or rubs appreciated. RESPIRATORY: No accessory muscle use. Difficult to assess to auscultation. Patient is tachypneic, and obviously responding to pleuritic pain. Patient has a lot of gurgling with his breathing. He is able to speak in short sentences however. Patient is noted to be 93% on 2 L via nasal cannula. Breath sounds equal bilaterally. GASTROINTESTINAL: Abdomen soft, mild to moderate nonspecific right lower quadrant tenderness, nondistended. No point tenderness or rebound. Hepatic and splenic margins not palpable. MUSCULOSKELETAL: Extremities without clubbing, cyanosis, or edema. No obvious deformities. NEUROLOGICAL: Awake and alert. No obvious cranial nerve deficits. Motor grossly within normal limits. Five out of 5 muscle strength in the arms and legs. Normal speech. PSYCHIATRIC: Appropriate mood and affect; insight and judgment normal. Laboratory Laboratory Tests Test 11/26/17 11:11 11/26/17 11:15 11/26/17 12:58 White Blood Count 10.8 Red Blood Count 6.12 Hemoglobin 14.2 Hematocrit 44.6 Mean Corpuscular Volume 72.9 Mean Corpuscular Hemoglobin 23.2 Mean Corpuscular Hemoglobin Concent 31.9 Red Cell Distribution Width 24.1 Platelet Count 233 Mean Platelet Volume 8.4 Neutrophils (%) (Auto) 83.7 Lymphocytes (%) (Auto) 10.3 Monocytes (%) (Auto) 4.8 Eosinophils (%) (Auto) 0.7 Basophils (%) (Auto) 0.5 Neutrophils # (Auto) 9.0 Lymphocytes # (Auto) 1.1 Monocytes # (Auto) 0.5 Eosinophils # (Auto) 0.1 Basophils # (Auto) 0.1 CBC Comment DIFF FINAL Differential Comment Prothrombin Time 10.0 Prothromb Time International Ratio 1.0 Activated Partial Thromboplast Time 24.7 Blood Urea Nitrogen 11 Creatinine 0.94 Random Glucose 136 Total Protein 7.5 Albumin 3.5 Calcium Level 8.4 Alkaline Phosphatase 109 Aspartate Amino Transf (AST/SGOT) 17 Alanine Aminotransferase (ALT/SGPT) 22 Total Bilirubin 0.4 Sodium Level 139 Potassium Level 4.0 Chloride Level 106 Carbon Dioxide Level 26.0 Anion Gap 7 Estimat Glomerular Filtration Rate 83 Lactic Acid Level 1.2 Lipase 115 Result Diagram: 11/26/17 1111 11/26/17 1115 Imaging Last Impressions Chest CT 11/26/17 1108 Signed Impressions: Service Date/Time: Sunday, November 26, 2017 12:21 - CONCLUSION: 1. Acute left sixth and seventh anterior rib fractures. 2. Small left pleural effusion and mild bilateral atelectasis. 3. Sinus inversus again noted. Marcos Silva MD Abdomen/Pelvis CT 11/26/17 1108 Signed Impressions: Service Date/Time: Sunday, November 26, 2017 12:21 - CONCLUSION: Complete situs inversus. There is a small left-sided pleural effusion with no visible rib fracture. No evidence of liver laceration. The anterior midline fluid collection has increased in size however, there is no surrounding wall thickening to suggest abscess. Jocelyn Dugan MD Caprini VTE Risk Assessment Caprini VTE Risk Assessment: Mod/High Risk (score >= 2) VTE Pharm Contraindication: Caprini Risk Assessment Model Point Value = 1 Point Value = 2 Point Value = 3 Point Value = 5 Age 41-60 Minor surgery BMI > 25 kg/m2 Swollen legs Varicose veins or History of unexplained or recurrent spontaneous Oral contraceptives or hormone replacement Sepsis (< 1 month) Serious lung disease, including pneumonia (< 1 month) Abnormal pulmonary function Acute myocardial infarction Congestive heart failure (< 1 month) History of inflammatory bowel disease Medical patient at bed rest Age 61-74 Arthroscopic surgery Major open surgery (> 45 min) Laparoscopic surgery (> 45 min) Malignancy Confined to bed (> 72 hours) Immobilizing plaster cast Central venous access Age >= 75 History of VTE Family history of VTE Factor V Leiden Prothrombin [id number] Lupus anticoagulant Anticardiolipin antibodies Elevated serum homocysteine Heparin-induced thrombocytopenia Other congenital or acquired thrombophilia Stroke (< 1 month) Elective arthroplasty Hip, pelvis, or leg fracture Acute spinal cord injury (< 1 month) Prophylaxis Regimen Total Risk Factor Score Risk Level Prophylaxis Regimen 0-1 Low Early ambulation 2 Moderate Order ONE of the following: *Sequential Compression Device (SCD) *Heparin 5000 units SQ BID 3-4 Higher Order ONE of the following medications: *Heparin 5000 units SQ TID *Enoxaparin/Lovenox 40 mg SQ daily (WT < 150 kg, CrCl > 30 mL/min) *Enoxaparin/Lovenox 30 mg SQ daily (WT < 150 kg, CrCl > 10-29 mL/min) *Enoxaparin/Lovenox 30 mg SQ BID (WT < 150 kg, CrCl > 30 mL/min) AND/OR *Sequential Compression Device (SCD) 5 or more Highest Order ONE of the following medications: *Heparin 5000 units SQ TID (Preferred with Epidurals) *Enoxaparin/Lovenox 40 mg SQ daily (WT < 150 kg, CrCl > 30 mL/min) *Enoxaparin/Lovenox 30 mg SQ daily (WT < 150 kg, CrCl > 10-29 mL/min) *Enoxaparin/Lovenox 30 mg SQ BID (WT < 150 kg, CrCl > 30 mL/min) AND *Sequential Compression Device (SCD) Assessment and Plan Assessment and Plan 1. Status post Trip and fall 2. Multiple Rib fractures, receiving narcotics in ER Morphine, Bentyl IM CBC unremarkable. ABD CT shows no acute findings, but with enlarging anterior midline fluid collection without signs surrounding wall thickening to suggest abscess. Chest CT shows: Acute left sixth and seventh anterior rib fractures, Small left pleural effusion and mild bilateral atelectasis, Sinus inversus again noted. has a Seroma on anterior abdomen, Doctor Hird ER specialist consulted Doctor Alvares. General torpedo specialist following for Doctor Lau, the patient was recommended to get His Diet today and will be NPO at midnight if needed for procedure in am tomorrow. 3. OA with chronic pain management probable Narcotic dependence but the patient states he does not have Pain medicine at this time 4. Colon Cancer History with Colon resection managed by Doctor Rose will start new medicine November 28 5. Hypertension to continue Home medicines and follow 6. Hyperlipidemia to continue Home medicines 7. COPD stable non exacerbated, continue Bronchodilator, Mucolytic and incentive spirometry, Encourage ambulation, asked for PT evaluation. 8. DM II continue sliding scale, ADA diet 1800 cals, and Glucerna shake, Hemoglobin A1C. 9. GERD to continue Gastric protection 10. CASEY by history on no CPAP sliding scale Blood glucose checks TSH and free T4 Hemoglobin A1C vitamin B12 Folate PT evaluation Supplement diet Full Code DVT prophylaxis with SCDs. will be NPO at midnight Until surgery evaluation Code Status Full Code Discussed Condition With Discussed with ER specialist doctor Niyah Mendoza Physician Certification 2 Midnight Certification Type: Admission for Inpatient Services Order for Inpatient Services The services are ordered in accordance with Medicare regulations or non- Medicare payer requirements, as applicable. In the case of services not specified as inpatient-only, they are appropriately provided as inpatient services in accordance with the 2-midnight benchmark. Estimated LOS (days): 3 days is the estimated time the patient will need to remain in the hospital, assuming treatment plan goals are met and no additional complications. Post-Hospital Plan: Not yet determined Theodore Dietrich MD Nov 26, 2017 13:56
[2017-11-26] MEDS ORDERED: LACTULOSE SYRUP 20 GM/30 ML CUP PO PRN (14:00)
[2017-11-26] MEDS ORDERED: BISACODYL 10 MG SUPP RECTAL PRN (14:00)
[2017-11-26] MEDS ORDERED: ACETAMINOPHEN 325 MG TAB PO PRN (14:00)
[2017-11-26] MEDS ORDERED: NALOXONE HCL 0.4 MG/ML AMP IV PUSH PRN (14:00)
[2017-11-26] MEDS ORDERED: ONDANSETRON HCL 4 MG/2 ML VIAL IVP PRN (14:00)
[2017-11-26] MEDS ORDERED: SENNOSIDES 8.6 MG TAB PO PRN (14:00)
[2017-11-26] MEDS ORDERED: ACETAMINOPHEN/HYDROcodone 325 MG/5 MG TAB PO PRN (14:15)
[2017-11-26] MEDS ORDERED: DEXTROSE 50% IN WATER 50 ML VIAL(D50) IV PUSH PRN (14:15)
[2017-11-26] MEDS ORDERED: GLUCAGON 1 MG/ML VIAL OTHER PRN (14:15)
--- NOTE | 2017-11-26 14:23 | PD ---
Physical Exam Narrative GENERAL: Well-nourished, well-developed patient. SKIN: Warm and dry. HEAD: Normocephalic and atraumatic. EYES: No injection or drainage. ENT: No nasal drainage noted. NECK: Supple, trachea midline. CARDIOVASCULAR: Regular rate and rhythm RESPIRATORY: No increased effort. No accessory muscle use. NEUROLOGICAL: Awake and alert. Motor and sensory grossly within normal limits. Normal speech. Steady gait noted Data Data Last Documented VS Vital Signs Date Time Temp Pulse Resp B/P (MAP) Pulse Ox O2 Delivery O2 Flow Rate FiO2 11/26/17 13:04 60 18 162/98 (119) 97 Nasal Cannula 3.00 11/26/17 10:[address] Thorax/ Chest W Iv Contrast (11/26/17 11:08) Ct Abd/Pel W Iv Contrast(Rout) (11/26/17 11:08) Complete Blood Count With Diff (11/26/17 11:08) Comprehensive Metabolic Panel (11/26/17 11:08) Lipase (11/26/17 11:08) Lactic Acid (11/26/17 11:08) Prothrombin Time / Inr (Pt) (11/26/17 11:08) Act Partial Throm Time (Ptt) (11/26/17 11:08) Urinalysis - C+S If Indicated (11/26/17 11:08) Iv Access Insert/Monitor (11/26/17 11:08) Ecg Monitoring (11/26/17 11:08) Oximetry (11/26/17 11:08) Sodium Chlor 0.9% 1000 Ml Inj (Ns 1000 M (11/26/17 11:08) Sodium Chloride 0.9% Flush (Ns Flush) (11/26/17 11:15) Dicyclomine Inj (Bentyl Inj) (11/26/17 11:15) Ondansetron Inj (Zofran Inj) (11/26/17 11:15) Morphine Inj (Morphine Inj) (11/26/17 11:15) Albuterol-Ipratropium Neb (Duoneb Neb) (11/26/17 12:30) Morphine Inj (Morphine Inj) (11/26/17 12:45) Iohexol 350 Inj (Omnipaque 350 Inj) (11/26/17 12:46) Hydromorphone Pf Inj (Dilaudid Pf Inj) (11/26/17 13:30) Consult General Surgery (11/26/17 ) (Hub Use Only)Inp Phy Cons/Ref (11/26/17 ) Admit To Inpatient (11/26/17 ) Code Status (11/26/17 13:50) Vital Signs (Adult) Q4H (11/26/17 13:50) Activity Oob Ad Eve (11/26/17 13:50) Bedside Glucose KOBY.CSUGAR (11/26/17 13:50) Healthcare Translator / Telemetry .CONTINUOUS (11/26/17 13:50) Intake + Output KOBY.QSHIFT (11/26/17 13:50) Notify Dr: Other (11/26/17 13:50) Sodium Chlor 0.9% 1000 Ml Inj (Ns 1000 M (11/26/17 14:00) Sodium Chloride 0.9% Flush (Ns Flush) (11/26/17 14:00) Sodium Chloride 0.9% Flush (Ns Flush) (11/26/17 21:00) Acetaminophen (Tylenol) (11/26/17 14:00) Ondansetron Inj (Zofran Inj) (11/26/17 14:00) Basic Metabolic Panel (Bmp) (11/27/17 06:00) Complete Blood Count With Diff (11/27/17 06:00) Creatine Kinase (Cpk) (11/26/17 13:50) Creatine Kinase (Cpk) (11/26/17 19:50) Troponin I (11/26/17 13:50) Troponin I (11/26/17 19:50) Resp Oxygen Lupillo C Titrat 1-4 L (11/26/17 ) Pt Request For Service (11/26/17 13:50) Case Management Consult (11/26/17 13:50) Scd Bilateral/Knee High KOBY.BID (11/26/17 13:50) Naloxone Inj (Narcan Inj) (11/26/17 14:00) Sennosides (Senokot) (11/26/17 14:00) Bisacodyl Supp (Dulcolax Supp) (11/26/17 14:00) Lactulose Liq (Lactulose Liq) (11/26/17 14:00) Inpatient Certification (11/26/17 ) Lisinopril (Prinivil) (11/26/17 21:00) Pravastatin (Pravachol) (11/27/17 09:00) Pantoprazole (Protonix) (11/27/17 09:00) Admit Order (Ed Use Only) (11/26/17 13:58) Labs Laboratory Tests Test 11/26/17 11:11 11/26/17 11:15 11/26/17 12:58 White Blood Count 10.8 TH/MM3 Red Blood Count 6.12 MIL/MM3 Hemoglobin 14.2 GM/DL Hematocrit 44.6 % Mean Corpuscular Volume 72.9 FL Mean Corpuscular Hemoglobin 23.2 PG Mean Corpuscular Hemoglobin Concent 31.9 % Red Cell Distribution Width 24.1 % Platelet Count 233 TH/MM3 Mean Platelet Volume 8.4 FL Neutrophils (%) (Auto) 83.7 % Lymphocytes (%) (Auto) 10.3 % Monocytes (%) (Auto) 4.8 % Eosinophils (%) (Auto) 0.7 % Basophils (%) (Auto) 0.5 % Neutrophils # (Auto) 9.0 TH/MM3 Lymphocytes # (Auto) 1.1 TH/MM3 Monocytes # (Auto) 0.5 TH/MM3 Eosinophils # (Auto) 0.1 TH/MM3 Basophils # (Auto) 0.1 TH/MM3 CBC Comment DIFF FINAL Differential Comment Prothrombin Time 10.0 SEC Prothromb Time International Ratio 1.0 RATIO Activated Partial Thromboplast Time 24.7 SEC Blood Urea Nitrogen 11 MG/DL Creatinine 0.94 MG/DL Random Glucose 136 MG/DL Total Protein 7.5 GM/DL Albumin 3.5 GM/DL Calcium Level 8.4 MG/DL Alkaline Phosphatase 109 U/L Aspartate Amino Transf (AST/SGOT) 17 U/L Alanine Aminotransferase (ALT/SGPT) 22 U/L Total Bilirubin 0.4 MG/DL Sodium Level 139 MEQ/L Potassium Level 4.0 MEQ/L Chloride Level 106 MEQ/L Carbon Dioxide Level 26.0 MEQ/L Anion Gap 7 MEQ/L Estimat Glomerular Filtration Rate 83 ML/MIN Lactic Acid Level 1.2 mmol/L Lipase 115 U/L Urine Color LIGHT-YELLOW Urine Turbidity CLEAR Urine pH 6.0 Urine Specific Welcome 1.009 Urine Protein NEG mg/dL Urine Glucose (UA) NEG mg/dL Urine Ketones NEG mg/dL Urine Occult Blood NEG Urine Nitrite NEG Urine Bilirubin NEG Urine Urobilinogen LESS THAN 2.0 MG/DL Urine Leukocyte Esterase NEG Urine Mucus FEW /lpf Microscopic Urinalysis Comment CULT NOT INDICATED MDM Supervised Visit with ANTONIO: Yes Interpretation(s) CBC & BMP Diagram 11/26/17 11:11 11/26/17 11:15 Total Protein 7.5, Albumin 3.5, Calcium Level 8.4 L, Alkaline Phosphatase 109, Aspartate Amino Transf (AST/SGOT) 17, Alanine Aminotransferase (ALT/SGPT) 22, Total Bilirubin 0.4 Last [address] 11/26/17 1108 Signed Impressions: Service Date/Time: Sunday, November 26, 2017 12:21 - CONCLUSION: 1. Acute left sixth and seventh anterior rib fractures. 2. Small left pleural effusion and mild bilateral atelectasis. 3. Sinus inversus again noted. Marcos Silva MD Abdomen/Pelvis CT 11/26/17 1108 Signed Impressions: Service Date/Time: Sunday, November 26, 2017 12:21 - CONCLUSION: Complete situs inversus. There is a small left-sided pleural effusion with no visible rib fracture. No evidence of liver laceration. The anterior midline fluid collection has increased in size however, there is no surrounding wall thickening to suggest abscess. Jocelyn Dugan MD Narrative Course I, Dr. mendoza, have reviewed the advance practice practitioner's documentation and am in agreement, met with the patient face to face, made the diagnosis, and the medical decision making was done by me. *My assessment and Findings: 57-year-old male had a trip and fall and now has 2 rib fractures. He has history of a seroma that has increased in size. I discussed this with his general surgeon's colleague Dr. Brewer and he will be admitted to the hospital for further pain control Physician Communication Physician Communication dr brewer will follow along for dr jr barnes notified and states can admit to medicine dr galvin agrees to admit Diagnosis Primary Impression: Ribs, multiple fractures Qualified Codes: S22.49XA - Multiple fractures of ribs, unspecified side, initial encounter for closed fracture Additional Impressions: Abdominal wall seroma Qualified Codes: T88.8XXA - Other specified complications of surgical and medical care, not elsewhere classified, initial encounter; T79.2XXA - Traumatic secondary and recurrent hemorrhage and seroma, initial encounter Contusion, chest wall Qualified Codes: S20.219A - Contusion of unspecified front wall of thorax, initial encounter Fall Qualified Codes: W19.XXXA - Unspecified fall, initial encounter Admitting Information Admitting Physician Requests: Observation Condition: Stable Niyah Mendoza MD Nov 26, 2017 14:23
[2017-11-26] MEDS: SODIUM CHLOR 0.9% 1000 ML INJ 1,000 ML IV SCH (14:51)
[2017-11-26] MEDS: RESP: ALBUTEROL 2.5 MG/IPRATROPIUM 0.5 MG NEB (SCH) NEB ×2 (16:00→19:31)
[2017-11-26] MEDS: oxyCODONE/ACETAMINOPHEN 5 MG/325 MG TAB PO PRN ×2 (16:05→20:15)
[2017-11-26] MEDS: INSULIN ASPART SUPPLEMENTAL SCALE SQ SCH ×2 (16:36→20:15)
[2017-11-26] MEDS: HYDROmorphone HCL PF 2 MG/ML VIAL IV PUSH PRN ×2 (18:03→22:06)
[2017-11-26 18:38] LABS: TROPONIN I LESS THAN 0.02 NG/ML (0.02-0.05)
[2017-11-26] MEDS: SODIUM CHLORIDE 0.9% FLUSH 10 ML FLUSH IV FLUSH SCH (20:13)
[2017-11-26] MEDS: guaiFENesin E.R. 600 MG TAB PO SCH (20:14)
[2017-11-26] MEDS: LISINOPRIL 20 MG TAB PO SCH (20:14)
[2017-11-26 21:38] LABS: FOLATE 15.1 NG/ML (3.1-17.5); FREE T4 0.91 NG/DL (0.76-1.46); TROPONIN I LESS THAN 0.02 NG/ML (0.02-0.05)
[2017-11-27] VITALS (8 sets, daily range): BP systolic 107–140; BP diastolic 64–83; PULSE 80–90; RESP 18–21; TEMP 98.5–101.3; O2SAT 93–96
[2017-11-27] MEDS: oxyCODONE/ACETAMINOPHEN 5 MG/325 MG TAB PO PRN ×3 (00:37→10:12)
[2017-11-27] MEDS: SODIUM CHLOR 0.9% 1000 ML INJ 1,000 ML IV SCH ×2 (00:42→10:12)
[2017-11-27] MEDS: RESP: ALBUTEROL 2.5 MG/IPRATROPIUM 0.5 MG NEB (SCH) NEB ×5 (00:52→11:09)
[2017-11-27] MEDS: HYDROmorphone HCL PF 2 MG/ML VIAL IV PUSH PRN ×2 (02:14→08:36)
[2017-11-27] MEDS ORDERED: CHLORHEXIDINE GLUCONATE 2 % 1 PACK (2 CLOTHS) TOPICAL PRN (03:15)
[2017-11-27] MEDS ORDERED: POVIDONE IODINE 5% (ANTISEPSIS KIT) 4 APPLICATIONS EACH NARE PRN (03:15)
[2017-11-27] MEDS ORDERED: LACTATED RINGER'S 1000 ML IV PRN (03:15)
--- NOTE | 2017-11-27 05:08 | MB ---
cc: PANKAJ CABRALES MD DATE OF CONSULTATION 11/26/2017 REASON FOR CONSULTATION Abdominal wall seroma. HISTORY OF PRESENT ILLNESS The patient is a 57-year-old male who presents with history of colon cancer and complains of status post trip and fall two days ago. The patient was noted to have left anterior rib fractures. He was complaining of increased pain and some shortness of breath, therefore came to the emergency department for further evaluation including CT scan. CT scan finding of a somewhat large seroma to the anterior abdominal wall. Therefore, Surgery was consulted for further evaluation. The patient denies any fevers or chills. He denies significant pain in the abdomen as a result of this but does say this is mild discomfort. He further notes that he has had a previous seroma which was drained in the office by Dr. Lau. The patient notes his rib pain is somewhat substantial, 8/10, improved with IV pain medications, worse with coughing and movement, better with lying still. PAST MEDICAL HISTORY 1. Osteoarthritis. 2. Depression. 3. Colon cancer. 4. Hypertension. 5. Hyperlipidemia. 6. COPD. 7. Diabetes. 8. Stroke. 9. Diverticulitis. 10. Hiatal hernia. 11. Abdominal hernia. 12. Reflux. 13. Seizure disorders. 14. Sleep apnea. PAST SURGICAL HISTORY 1. Laparoscopic hiatal hernia repair. 2. Incisional hernia repair. 3. Colon resection with mesh placement for hernia. MEDICATIONS See EMR. ALLERGIES No known drug allergies. SOCIAL HISTORY History of alcohol use. Positive smoking. Narcotic dependence. REVIEW OF SYSTEMS GENERAL: Denies eye pain, ear pain. NECK: Denies swelling or pain. LUNGS: Denies wheeze. Complained of chest pain and cough. ABDOMEN: Mild abdominal pain, distension. : Denies dysuria, hematuria. ENDOCRINE: Denies polyuria, polydipsia, diabetes. EXTREMITIES: Denies arthralgias, myalgias. LABORATORY AND DIAGNOSTIC DATA WBC 10.8, hemoglobin 14.2, hematocrit 44.6, platelets 233. Sodium 139, potassium 4, chloride 106, BUN 7, creatinine 0.9, glucose 136, AST 70, ALT 22. CT scan reviewed by myself showing CT Chest - Left rib fractures, small pleural effusion. CT abdomen/pelvis - Abdominal wall fluid collection, 6.9 x 11, which has increased. No ring enhancement, no induration. ASSESSMENT The patient is a 57-year-old male status post trip and fall with left-sided rib fractures, abdominal wall seroma, multiple medical issues. PLAN 1. After full workup, the patient with the above-named issues. We will defer management of rib fractures to either medical team or Trauma Surgery Service. 2. We will consider aspiration of abdominal seroma; does not appear to be abscess cavity at this time. The patient could even undergo outpatient drainage of seroma and follow up in the office as an outpatient. 3. We will further discuss with the patient. 4. No acute surgical intervention. MD JOSE Cross/FREDY /11:22 PM /4:56 AM
[2017-11-27 06:27] LABS: AUTOMATED NEUTROPHIL # 8.7 TH/MM3 (1.8-7.7); BASOPHIL % 0.3 % (0.0-2.0); EOSINOPHIL % 0.2 % (0.0-4.0); HEMATOCRIT 36.7 % (39.0-51.0); HEMOGLOBIN 11.9 GM/DL (13.0-17.0); LYMPH % 7.9 % (9.0-44.0); LYMPHOCYTE # 0.8 TH/MM3 (1.0-4.8); MEAN CELL VOLUME 72.5 FL (80.0-100.0); MEAN CORPUSCULAR HEMOGLOBIN 23.6 PG (27.0-34.0); MEAN CORPUSCULAR HGB CONC 32.5 % (32.0-36.0); MEAN PLATELET VOLUME 8.5 FL (7.0-11.0); MONO % 4.3 % (0.0-8.0); MONOCYTE # 0.4 TH/MM3 (0-0.9); NEUT % 87.3 % (16.0-70.0); PLATELET COUNT 166 TH/MM3 (150-450); RED BLOOD COUNT 5.06 MIL/MM3 (4.50-5.90); WHITE BLOOD COUNT 9.9 TH/MM3 (4.0-11.0)
[2017-11-27 07:00] LABS: BICARBONATE 27.8 MEQ/L (21.0-32.0); CALCIUM 7.7 MG/DL (8.5-10.1); CREATININE 0.92 MG/DL (0.60-1.30)
[2017-11-27] MEDS: INSULIN ASPART SUPPLEMENTAL SCALE SQ SCH ×2 (08:00→11:28)
[2017-11-27] MEDS: guaiFENesin E.R. 600 MG TAB PO SCH (08:36)
[2017-11-27] MEDS: LISINOPRIL 20 MG TAB PO SCH (08:36)
[2017-11-27] MEDS ORDERED: PRAVASTATIN SOD 40 MG TAB PO SCH (09:00)
[2017-11-27] MEDS ORDERED: PANTOPRAZOLE SOD 40 MG DELAYED RELEASE TAB PO SCH (09:00)
[2017-11-27] MEDS: SODIUM CHLORIDE 0.9% FLUSH 10 ML FLUSH IV FLUSH SCH (09:00)
--- NOTE | 2017-11-27 09:45 | HHI.PR ---
Subjective Remarks This is a pleasant 57-year-old male presents to emergency department status post trip and fall 2 days ago with contusion to the left anterior ribs from a corner of a dresser. Patient has had increasing pain, and shortness of breath since that time. Patient also reports increasing right lower quadrant tenderness which she's had over the past 2 weeks. He has a history of colon cancer treated approximately one year ago. He states he is moving his bowels and denies any black tarry stools or diogenes blood. He is short of breath and in distress secondary to his rib pain more than abdominal pain. He denies nausea or vomiting. He denies recent fever. He is on oxygen. Pain is 8 out of 10. Worse with cough or movement. He has no known drug allergies. Stable in his bedroom, discussed with ER physician, will need to control his Pain and aggressive respiratory toilet to avoid Pneumonia. 11/27: Seen by General air quality instrument specialist doctor Floyd Alvares for Abdominal seroma, recommended to follow as outpatient for drainage of Seroma, follow up outpatient office, seen in his office with nurse Miss Alonzo, he has some expiratory wheezing, but he is threatening to go home AMA, no nausea, vomit or diarrhea. Objective Vital Signs Date Time Temp Pulse Resp B/P (MAP) Pulse Ox O2 Delivery O2 Flow Rate FiO2 11/27/17 07:38 96 Nasal Cannula 3.00 11/27/17 06:22 20 11/27/17 06:03 98.6 11/27/17 06:00 98.5 11/27/17 05:25 19 11/27/17 04:00 101.3 86 18 107/69 (82) 94 11/27/17 03:47 83 11/27/17 02:30 19 11/27/17 00:00 99.0 90 20 140/83 (102) 95 11/26/17 22:48 Nasal Cannula 3.00 11/26/17 20:20 88 11/26/17 20:00 98.7 75 18 139/86 (103) 96 11/26/17 19:34 97 Nasal Cannula 3.00 11/26/17 15:37 95.6 17 19 158/100 (119) 92 11/26/17 15:16 17 11/26/17 15:16 16 11/26/17 15:15 16 11/26/17 15:00 82 19 143/89 (107) 96 Nasal Cannula 3.00 11/26/17 13:04 60 18 162/98 (119) 97 Nasal Cannula 3.00 11/26/17 12:42 95 Nasal Cannula 2.00 11/26/17 11:33 96 Nasal Cannula 2.00 11/26/17 11:06 91 24 93 Room Air 11/26/17 10:40 98.1 103 28 175/119 (137) 91 I/O 11/26/17 11/26/17 11/26/17 11/27/17 11/27/17 11/27/17 07:00 15:00 23:00 07:00 15:00 23:00 Intake Total 1000 ml 480 ml 1000 ml Output Total 900 ml 400 ml Balance 1000 ml -420 ml 600 ml Intake Oral 480 ml 0 ml IV Total 1000 ml 1000 ml Output Urine Total 900 ml 400 ml # Voids 2 # Bowel Movements 0 0 Result Diagram: 11/27/17 0455 11/27/17 0455 Imaging Last Impressions Chest CT 11/26/17 1108 Signed Impressions: Service Date/Time: Sunday, November 26, 2017 12:21 - CONCLUSION: 1. Acute left sixth and seventh anterior rib fractures. 2. Small left pleural effusion and mild bilateral atelectasis. 3. Sinus inversus again noted. Marcos Silva MD Abdomen/Pelvis CT 11/26/17 1108 Signed Impressions: Service Date/Time: Sunday, November 26, 2017 12:21 - CONCLUSION: Complete situs inversus. There is a small left-sided pleural effusion with no visible rib fracture. No evidence of liver laceration. The anterior midline fluid collection has increased in size however, there is no surrounding wall thickening to suggest abscess. Jocelyn Dugan MD Procedures None Other Results Laboratory Tests Test 11/26/17 11:15 11/26/17 12:58 11/26/17 19:57 11/27/17 04:55 Prothrombin Time 10.0 SEC Prothromb Time International Ratio 1.0 RATIO Activated Partial Thromboplast Time 24.7 SEC Lactic Acid Level 1.2 mmol/L Blood Urea Nitrogen 11 MG/DL 8 MG/DL Creatinine 0.94 MG/DL 0.92 MG/DL Random Glucose 136 MG/DL 107 MG/DL Total Protein 7.5 GM/DL Albumin 3.5 GM/DL Calcium Level 8.4 MG/DL 7.7 MG/DL Alkaline Phosphatase 109 U/L Aspartate Amino Transf (AST/SGOT) 17 U/L Alanine Aminotransferase (ALT/SGPT) 22 U/L Total Bilirubin 0.4 MG/DL Sodium Level 139 MEQ/L 135 MEQ/L Potassium Level 4.0 MEQ/L 3.6 MEQ/L Chloride Level 106 MEQ/L 100 MEQ/L Carbon Dioxide Level 26.0 MEQ/L 27.8 MEQ/L Lipase 115 U/L Urine Color LIGHT-YELLOW Urine Turbidity CLEAR Urine pH 6.0 Urine Specific [place] 1.009 Urine Protein NEG mg/dL Urine Glucose (UA) NEG mg/dL Urine Ketones NEG mg/dL Urine Occult Blood NEG Urine Nitrite NEG Urine Bilirubin NEG Urine Urobilinogen LESS THAN 2.0 MG/DL Urine Leukocyte Esterase NEG Urine Mucus FEW /lpf Microscopic Urinalysis Comment CULT NOT INDICATED Total Creatine Kinase 152 U/L Troponin I LESS THAN 0.02 NG/ML Vitamin B12 Level 196 PG/ML Folate 15.1 NG/ML Free Thyroxine 0.91 NG/DL Thyroid Stimulating Hormone 3rd Gen 1.020 uIU/ML White Blood Count 9.9 TH/MM3 Red Blood Count 5.06 MIL/MM3 Hemoglobin 11.9 GM/DL Hematocrit 36.7 % Mean Corpuscular Volume 72.5 FL Mean Corpuscular Hemoglobin 23.6 PG Mean Corpuscular Hemoglobin Concent 32.5 % Red Cell Distribution Width 23.0 % Platelet Count 166 TH/MM3 Mean Platelet Volume 8.5 FL Neutrophils (%) (Auto) 87.3 % Lymphocytes (%) (Auto) 7.9 % Monocytes (%) (Auto) 4.3 % Eosinophils (%) (Auto) 0.2 % Basophils (%) (Auto) 0.3 % Neutrophils # (Auto) 8.7 TH/MM3 Lymphocytes # (Auto) 0.8 TH/MM3 Monocytes # (Auto) 0.4 TH/MM3 Eosinophils # (Auto) 0.0 TH/MM3 Basophils # (Auto) 0.0 TH/MM3 CBC Comment DIFF FINAL Differential Comment Anion Gap 7 MEQ/L Estimat Glomerular Filtration Rate 85 ML/MIN Objective Remarks GENERAL: Obesity, no acute distress. SKIN: Warm and dry. Normal color. HEAD: Atraumatic. Normocephalic. EYES: Pupils equal and round. No scleral icterus. No injection or drainage. ENT: supple, no JVD, no lymphadenopathy. CARDIOVASCULAR: Regular rate and rhythm. No murmurs gallops or rubs appreciated. RESPIRATORY: Decreased breath sounds bilateral, mild expiratory wheezing, no crackles. GASTROINTESTINAL: Abdomen soft, mild to moderate nonspecific right lower quadrant tenderness, nondistended. MUSCULOSKELETAL: Extremities without clubbing, cyanosis, or edema. No obvious deformities. NEUROLOGICAL: Awake and alert. No obvious cranial nerve deficits. Motor grossly within normal limits. Five out of 5 muscle strength in the arms and legs. Normal speech. PSYCHIATRIC: Appropriate mood and affect; insight and judgment normal. Medications and IVs Current Medications Medications (Trade) Dose Ordered Sig/[place] Route Start Time Stop Time Status Last Admin Sodium Chloride 1,000 ml @ 100 mls/hr Q10H IV 11/26/17 14:00 11/27/17 00:42 (NS Flush) 2 ml UNSCH PRN IV FLUSH 11/26/17 14:00 (NS Flush) 2 ml BID IV FLUSH 11/26/17 21:00 (Tylenol) 650 mg Q4H PRN PO 11/26/17 14:00 11/27/17 04:11 (Zofran Inj) 4 mg Q6H PRN IVP 11/26/17 14:00 (Narcan Inj) 0.4 mg UNSCH PRN IV PUSH 11/26/17 14:00 (Senokot) 17.2 mg Q12H PRN PO 11/26/17 14:00 (Dulcolax Supp) 10 mg DAILY PRN RECTAL 11/26/17 14:00 (Lactulose Liq) 30 ml DAILY PRN PO 11/26/17 14:00 11/27/17 08:36 (Prinivil) 20 mg BID PO 11/26/17 21:00 11/27/17 08:36 (Pravachol) 40 mg DAILY PO 11/27/17 09:00 11/27/17 08:35 (Protonix) 40 mg DAILY PO 11/27/17 09:00 11/27/17 08:35 (NovoLOG SUPPLEMENTAL SCALE) 1 ACHS SLIDING SCALE SQ 11/26/17 17:00 (Mucinex Er) 600 mg BID PO 11/26/17 21:00 11/27/17 08:36 (Duoneb Neb) 1 ampule Q4HR NEB NEB 11/26/17 16:00 11/27/17 00:52 (Dilaudid Pf Inj) 1 mg Q4H PRN IV PUSH 11/26/17 14:15 11/27/17 08:36 (D50w (Vial) Inj) 50 ml UNSCH PRN IV PUSH 11/26/17 14:15 (Glucagon Inj) 1 mg UNSCH PRN OTHER 11/26/17 14:15 (Percocet 5-325 Mg) 1 tab Q4H PRN PO 11/26/17 16:00 11/27/17 05:31 Lactated Ringer's 1,000 ml @ 30 mls/hr Q24H PRN IV 11/27/17 03:15 11/30/17 03:14 11/27/17 03:53 (Betadine 5% Antisepsis Kit) 1 applic JUICE WEIGHER PRN EACH NARE 11/27/17 03:15 11/30/17 03:14 (Chlorhexidine 2% Cloth) 3 pack JUICE WEIGHER PRN TOPICAL 11/27/17 03:15 11/30/17 03:14 A/P Assessment and Plan 1. Status post Trip and fall, mechanical fall. 2. Multiple Rib fractures, receiving narcotics in ER Morphine, Bentyl IM CBC unremarkable. ABD CT shows no acute findings, but with enlarging anterior midline fluid collection without signs surrounding wall thickening to suggest abscess. Chest CT shows: Acute left sixth and seventh anterior rib fractures, Small left pleural effusion and mild bilateral atelectasis, Sinus inversus again noted. has a Seroma on anterior abdomen, Doctor Reji ER specialist consulted Doctor Alvares. General air quality instrument specialist following for Doctor Lau, recommended no surgical intervention in house follow as outpatient for procedure. 3. OA with chronic pain management probable Narcotic dependence but the patient states he does not have Pain medicine at this time 4. Colon Cancer History with Colon resection managed by Doctor Rose will start new medicine November 28 5. Hypertension to continue Home medicines and follow 6. Hyperlipidemia to continue Home medicines 7. COPD stable non exacerbated, at this time the patient has mild expiratory wheezing, but is walking in the aisle threatening the personnel that he wants to go right now and asking what is he doing here, that he needs to go, there is no reason for the patient to continue in house, will need to be followed by PCP as outpatient in 2 to 3 days. 8. DM II continue sliding scale, ADA diet 1800 cals, and Glucerna shake, Hemoglobin A1C pending needs to be followed by PCP. 9. GERD to continue Gastric protection 10. CASEY by history on no CPAP 11. Obesity strongly recommended diet and exercise as outpatient. Full Code DVT prophylaxis with SCDs. Code Status Full Code Discussed Condition With Patient and nurse in the room. Discharge Planning Discharge Home now. Theodore Dietrich MD Nov 27, 2017 9:45 am
[2017-11-27] MEDS ORDERED: PERC10TA27 PO (12:53)
[2017-11-27] MEDS ORDERED: SYMB160A INH (12:53)
[2017-11-27] MEDS ORDERED: guaiFENesin ER PO (12:53)
--- NOTE | 2017-11-27 13:08 | HHI.DS ---
Discharge Summary Admission Date Nov 26, 2017 at 14:00 Discharge Date: Nov 27, 2017 Admitting Diagnosis (1) COPD (chronic obstructive pulmonary disease) ICD Code: J44.9 - Chronic obstructive pulmonary disease Diagnosis: Secondary Status: Acute (2) Fall ICD Code: W19.XXXA - Unspecified fall, initial encounter Diagnosis: Principal Status: Acute (3) Ribs, multiple fractures ICD Code: S22.49XA - Multiple fractures of ribs, unspecified side, initial encounter for closed fracture Diagnosis: Principal Status: Acute Procedures None Brief History - From Admission This is a pleasant 57-year-old male presents to emergency department status post trip and fall 2 days ago with contusion to the left anterior ribs from a corner of a dresser. Patient has had increasing pain, and shortness of breath since that time. Patient also reports increasing right lower quadrant tenderness which she's had over the past 2 weeks. He has a history of colon cancer treated approximately one year ago. He states he is moving his bowels and denies any black tarry stools or diogenes blood. He is short of breath and in distress secondary to his rib pain more than abdominal pain. He denies nausea or vomiting. He denies recent fever. He is on oxygen. Pain is 8 out of 10. Worse with cough or movement. He has no known drug allergies. Stable in his bedroom, discussed with ER physician, will need to control his Pain and aggressive respiratory toilet to avoid Pneumonia. CBC/BMP: 11/27/17 0455 11/27/17 0455 Significant Findings Laboratory Tests Test 11/26/17 11:11 11/26/17 11:15 11/26/17 12:58 11/26/17 19:57 Red Blood Count 6.12 MIL/MM3 (4.50-5.90) Mean Corpuscular Volume 72.9 FL (80.0-100.0) Mean Corpuscular Hemoglobin 23.2 PG (27.0-34.0) Mean Corpuscular Hemoglobin Concent 31.9 % (32.0-36.0) Red Cell Distribution Width 24.1 % (11.6-17.2) Neutrophils (%) (Auto) 83.7 % (16.0-70.0) Neutrophils # (Auto) 9.0 TH/MM3 (1.8-7.7) Random Glucose 136 MG/DL (74-106) Calcium Level 8.4 MG/DL (8.5-10.1) Estimat Glomerular Filtration Rate 83 ML/MIN (>89) Troponin I LESS THAN 0.02 NG/ML LESS THAN 0.02 NG/ML Urine Mucus FEW /lpf (OCC) Test 11/27/17 04:55 Hemoglobin 11.9 GM/DL (13.0-17.0) Hematocrit 36.7 % (39.0-51.0) Mean Corpuscular Volume 72.5 FL (80.0-100.0) Mean Corpuscular Hemoglobin 23.6 PG (27.0-34.0) Red Cell Distribution Width 23.0 % (11.6-17.2) Neutrophils (%) (Auto) 87.3 % (16.0-70.0) Lymphocytes (%) (Auto) 7.9 % (9.0-44.0) Neutrophils # (Auto) 8.7 TH/MM3 (1.8-7.7) Lymphocytes # (Auto) 0.8 TH/MM3 (1.0-4.8) Random Glucose 107 MG/DL (74-106) Calcium Level 7.7 MG/DL (8.5-10.1) Sodium Level 135 MEQ/L (136-145) Estimat Glomerular Filtration Rate 85 ML/MIN (>89) Imaging Last Impressions Chest CT 11/26/17 1108 Signed Impressions: Service Date/Time: Sunday, November 26, 2017 12:21 - CONCLUSION: 1. Acute left sixth and seventh anterior rib fractures. 2. Small left pleural effusion and mild bilateral atelectasis. 3. Sinus inversus again noted. Marcos Silva MD Abdomen/Pelvis CT 11/26/17 1108 Signed Impressions: Service Date/Time: Sunday, November 26, 2017 12:21 - CONCLUSION: Complete situs inversus. There is a small left-sided pleural effusion with no visible rib fracture. No evidence of liver laceration. The anterior midline fluid collection has increased in size however, there is no surrounding wall thickening to suggest abscess. Jocelyn Dugan MD PE at Discharge GENERAL: Obesity, no acute distress. SKIN: Warm and dry. Normal color. HEAD: Atraumatic. Normocephalic. EYES: Pupils equal and round. No scleral icterus. No injection or drainage. ENT: supple, no JVD, no lymphadenopathy. CARDIOVASCULAR: Regular rate and rhythm. No murmurs gallops or rubs appreciated. RESPIRATORY: Decreased breath sounds bilateral, mild expiratory wheezing, no crackles. GASTROINTESTINAL: Abdomen soft, mild to moderate nonspecific right lower quadrant tenderness, nondistended. MUSCULOSKELETAL: Extremities without clubbing, cyanosis, or edema. No obvious deformities. NEUROLOGICAL: Awake and alert. No obvious cranial nerve deficits. Motor grossly within normal limits. Five out of 5 muscle strength in the arms and legs. Normal speech. PSYCHIATRIC: Appropriate mood and affect; insight and judgment normal. Hospital Course This is a pleasant 57-year-old male presents to emergency department status post trip and fall 2 days ago with contusion to the left anterior ribs from a corner of a dresser. Patient has had increasing pain, and shortness of breath since that time. Patient also reports increasing right lower quadrant tenderness which she's had over the past 2 weeks. He has a history of colon cancer treated approximately one year ago. He states he is moving his bowels and denies any black tarry stools or diogenes blood. He is short of breath and in distress secondary to his rib pain more than abdominal pain. He denies nausea or vomiting. He denies recent fever. He is on oxygen. Pain is 8 out of 10. Worse with cough or movement. He has no known drug allergies. Stable in his bedroom, discussed with ER physician, will need to control his Pain and aggressive respiratory toilet to avoid Pneumonia. 11/27: Seen by General career resource specialist doctor Floyd Alvares for Abdominal seroma, recommended to follow as outpatient for drainage of Seroma, follow up outpatient office, seen in his office with nurse Miss Alonzo, he has some expiratory wheezing, but he is threatening to go home AMA, no nausea, vomit or diarrhea. Assessment and Plan 1. Status post Trip and fall, mechanical fall. 2. Multiple Rib fractures, receiving narcotics in ER Morphine, Bentyl IM CBC unremarkable. ABD CT shows no acute findings, but with enlarging anterior midline fluid collection without signs surrounding wall thickening to suggest abscess. Chest CT shows: Acute left sixth and seventh anterior rib fractures, Small left pleural effusion and mild bilateral atelectasis, Sinus inversus again noted. has a Seroma on anterior abdomen, Doctor Reji ER specialist consulted Doctor Giorgio. General career resource specialist following for Doctor Lau, recommended no surgical intervention in house follow as outpatient for procedure. 3. OA with chronic pain management probable Narcotic dependence but the patient states he does not have Pain medicine at this time 4. Colon Cancer History with Colon resection managed by Doctor Rose will start new medicine November 28 5. Hypertension to continue Home medicines and follow 6. Hyperlipidemia to continue Home medicines 7. COPD stable non exacerbated, at this time the patient has mild expiratory wheezing, but is walking in the aisle threatening the personnel that he wants to go right now and asking what is he doing here, that he needs to go, there is no reason for the patient to continue in house, will need to be followed by PCP as outpatient in 2 to 3 days. 8. DM II continue sliding scale, ADA diet 1800 cals, and Glucerna shake, Hemoglobin A1C pending needs to be followed by PCP. 9. GERD to continue Gastric protection 10. CASEY by history on no CPAP 11. Obesity strongly recommended diet and exercise as outpatient. Full Code DVT prophylaxis with SCDs. Code Status Full Code Discussed Condition With Patient and nurse in the room. Discharge Planning Discharge Home now. Pt Condition on Discharge: Stable Discharge Disposition: Discharge Home Discharge Time: <= 30 minutes Discharge Instructions DIET: Follow Instructions for: Heart Healthy Diet Activities you can perform: Regular-No Restrictions Theodore Dietrich MD Nov 27, 2017 13:08
--- NOTE | 2017-11-27 15:57 | HHI.PR ---
cc: Jigar Lau MD Subjective Subjective Notes DAILY PROGRESS NOTE FOR SURGICAL ATTENDING, DR. JIGAR LAU Resting in bed Reports no pain at midline incision seroma site "Why can't I eat breakfast?" Objective Vitals/I&O Vital Signs Date Time Temp Pulse Resp B/P (MAP) Pulse Ox O2 Delivery O2 Flow Rate FiO2 11/27/17 12:00 100.0 80 19 117/69 (85) 93 11/27/17 07:38 Nasal Cannula 3.00 Labs Laboratory Tests Test 11/26/17 19:57 11/27/17 04:55 Total Creatine Kinase 152 Troponin I LESS THAN 0.02 Vitamin B12 Level 196 Folate 15.1 Free Thyroxine 0.91 Thyroid Stimulating Hormone 3rd Gen 1.020 White Blood Count 9.9 Red Blood Count 5.06 Hemoglobin 11.9 Hematocrit 36.7 Mean Corpuscular Volume 72.5 Mean Corpuscular Hemoglobin 23.6 Mean Corpuscular Hemoglobin Concent 32.5 Red Cell Distribution Width 23.0 Platelet Count 166 Mean Platelet Volume 8.5 Neutrophils (%) (Auto) 87.3 Lymphocytes (%) (Auto) 7.9 Monocytes (%) (Auto) 4.3 Eosinophils (%) (Auto) 0.2 Basophils (%) (Auto) 0.3 Neutrophils # (Auto) 8.7 Lymphocytes # (Auto) 0.8 Monocytes # (Auto) 0.4 Eosinophils # (Auto) 0.0 Basophils # (Auto) 0.0 CBC Comment DIFF FINAL Differential Comment Blood Urea Nitrogen 8 Creatinine 0.92 Random Glucose 107 Calcium Level 7.7 Sodium Level 135 Potassium Level 3.6 Chloride Level 100 Carbon Dioxide Level 27.8 Anion Gap 7 Estimat Glomerular Filtration Rate 85 Radiology Last Impressions Chest CT 11/26/17 1108 Signed Impressions: Service Date/Time: Sunday, November 26, 2017 12:21 - CONCLUSION: 1. Acute left sixth and seventh anterior rib fractures. 2. Small left pleural effusion and mild bilateral atelectasis. 3. Sinus inversus again noted. Marcos Silva MD Abdomen/Pelvis CT 11/26/17 1108 Signed Impressions: Service Date/Time: Sunday, November 26, 2017 12:21 - CONCLUSION: Complete situs inversus. There is a small left-sided pleural effusion with no visible rib fracture. No evidence of liver laceration. The anterior midline fluid collection has increased in size however, there is no surrounding wall thickening to suggest abscess. Jocelyn Dugan MD Cardiovascular: Regular Lungs: Clear Abdomen: Other (midline incision healed with palpable seroma (small) ---non tenderness ) Extremities: No edema A/P Assessment and Plan 57 year old male s/p fall with acute rib fractures; known to Dr. Lau s/p colon cancer -Acute on chronic seroma -No acute intervention indicated at this time -Patient can follow up in office for seroma aspiration -GS clear for DC Attending Statement NOTE FOR SURGICAL ATTENDING, DR. JIGAR LAU I agree with above assessment and plan. Patient was ready for discharge and was discharged prior to my seeing the patient but he was ready to go Albina Lorenz Nov 27, 2017 15:57 Jigar Lau MD Nov 28, 2017 10:47
[2017-11-27 16:35] LABS: HEMOGLOBIN A1C 6.7 % (4.3-6.0)
== END 2017-11-27 14:39 | disposition home or self-care (01) | DRG 184 ==
LOC: NEPC 10:39 → NEDA 13:55 → OBSVTOIN 13:55 → UNDOADMOB 14:00 → NEDA 14:00 → N06A 15:33 → NEDA 15:33 → UNDODISOB 11-27 14:39
PROVIDERS: ADMIT Internal Medicine; ATTEND Internal Medicine
DX: S22.42XA Multiple fractures of ribs, left side, initial encounter for closed fracture (principal); J90 Pleural effusion, not elsewhere classified; Q89.3 Situs inversus; F11.20 Opioid dependence, uncomplicated; K91.873 Postprocedural seroma of a digestive system organ or structure following other procedure; J98.11 Atelectasis; I10 Essential (primary) hypertension; J44.9 Chronic obstructive pulmonary disease, unspecified; E11.9 Type 2 diabetes mellitus without complications; K21.9 Gastro-esophageal reflux disease without esophagitis; E66.9 Obesity, unspecified; E78.5 Hyperlipidemia, unspecified; G47.33 Obstructive sleep apnea (adult) (pediatric); G40.909 Epilepsy, unspecified, not intractable, without status epilepticus; M19.90 Unspecified osteoarthritis, unspecified site; F10.10 Alcohol abuse, uncomplicated; F32.9 Major depressive disorder, single episode, unspecified; W01.190A Fall on same level from slipping, tripping and stumbling with subsequent striking against furniture, initial encounter; Z68.31 Body mass index [BMI] 31.0-31.9, adult; Z72.0 Tobacco use; Z79.84 Long term (current) use of oral hypoglycemic drugs; Z85.038 Personal history of other malignant neoplasm of large intestine; Z86.73 Personal history of transient ischemic attack (TIA), and cerebral infarction without residual deficits
CPT/HCPCS: 71260; 74177; 80048; 80053; 81001; 82550; 82607; 82746; 82948; 83036; 83605; 83690; 84439; 84443; 84484; 85025; 85610; 85730; 94640; 94664; 96361; 96374; 96375; 96376; G8987-GP; G8988-GP; J0500; J1170; J2270; J2405; J7030; J7120; Q9967

== ENCOUNTER 2018-01-26 10:02 | Emergency (ER) | payer OTHER ==
[~2018-01-26] VITALS: Ht 185.4 cm; Wt 100.0 kg
[~2018-01-26 10:02] MED LIST changes: +SYMB160A INH; +guaiFENesin ER PO
[2018-01-26 10:05] VITALS: BP 171/106; PULSE 93; RESP 18; TEMP 97.6; O2SAT 98
--- NOTE | 2018-01-26 10:17 | PD ---
HPI Chief Complaint: Laceration/Skin Injury Time Seen by Provider: 10:16 Travel History International Travel<30 days: No Contact w/Intl Traveler<30days: No Traveled to known affect area: No History of Present Illness HPI 58-year-old male presents emergency department with laceration to the first webspace of the left hand. Patient was working on his roof when he cut a piece of shingle, slipped and cut his hand. It is not completely full-thickness , but bleeding is continuous. He has no numbness, tingling, or loss of function noted. Pain is minimal. He has no known drug allergies. Tetanus is up-to-date. PFSH Past Medical History Hx Anticoagulant Therapy: Yes (ASA 325MG) Arthritis: Yes Asthma: No Autoimmune Disease: No Blood Disorders: No Anxiety: No Depression: Yes Heart Rhythm Problems: No Cancer: Yes (COLON) Cardiovascular Problems: Yes (HTN) High Cholesterol: Yes Chemotherapy: No Chest Pain: No Congestive Heart Failure: No COPD: Yes Cerebrovascular Accident: Yes Diabetes: Yes Diminished Hearing: No Diverticulitis: Yes Endocrine: No Gastrointestinal Disorders: Yes (HIATAL HERNIA; ABD HERNIA, ULCER) GERD: Yes Genitourinary: No Hepatitis: No Hiatal Hernia: Yes Hypertension: Yes Immune Disorder: No Implanted Vascular Access Dvce: No Musculoskeletal: Yes (ARTHRITIS) Neurologic: Yes (VERTIGO ) Psychiatric: No Reproductive: No Respiratory: Yes (ASTHMA, COPD) Immunizations Current: Yes Migraines: No Myocardial Infarction: No Radiation Therapy: No Seizures: Yes Sleep Apnea: Yes Thyroid Disease: No Triglycerides - High: Yes Ulcer: Yes Past Surgical History Abdominal Surgery: Yes (12/11 LAP HIATAL HERNIA; 06/10 REPAIR INCISIONAL HERNIA, SX TO REMOVE CA MASS) Body Medical Devices: MESH Cardiac Surgery: No Ear Surgery: No Endocrine Surgery: No Eye Surgery: No Genitourinary Surgery: No Gynecologic Surgery: No Joint Replacement: No Oral Surgery: Yes (EGD 09/09) Pacemaker: No Thoracic Surgery: No Other Surgery: Yes (lap hiatal hernia repair) Social History Alcohol Use: Yes (ONCE A MONTH) Tobacco Use: Yes ("A FEW PER DAY") Substance Use: No Allergies-Medications (Allergen,Severity, Reaction): Coded Allergies: No Known Allergies (Verified Allergy, Unknown, 11/26/17) Reported Meds & Prescriptions Reported Meds & Active Scripts Active Lovastatin 40 Mg Tab 40 Mg PO DAILY Metformin (Metformin HCl) 500 Mg Tab 500 Mg PO BIDPC With meals Lisinopril 20 Mg Tab 20 Mg PO BID Glipizide 5 Mg Tab 5 Mg PO DAILY Take 30 minutes before a meal Reported Aspirin 325 Mg Tab 325 Mg PO DAILY Review of Systems Except as stated in HPI: all other systems reviewed are Neg General / Constitutional: No: Fever Eyes: No: Visual changes HENT: No: Headaches Cardiovascular: No: Chest Pain or Discomfort Respiratory: No: Shortness of Breath Gastrointestinal: No: Abdominal Pain Genitourinary: No: Dysuria Musculoskeletal: No: Pain Skin: Positive Lesions, No Rash Neurologic: No: Weakness Psychiatric: No: Depression Endocrine: No: Polydipsia Hematologic/Lymphatic: No: Easy Bruising Physical Exam Narrative GENERAL: Patient appears in no obvious distress per SKIN: Warm and dry. Normal color. Normal turgor. Patient has a 2 cm linear not quite full-thickness laceration to the middle dorsal first webspace of the left hand. HEAD: Atraumatic. Normocephalic. EYES: Pupils equal and round. No scleral icterus. No injection or drainage. ENT: No nasal bleeding or discharge. Mucous membranes pink and moist. Pharynx is clear. Airways patent NECK: Trachea midline. Supple and nontender CARDIOVASCULAR: Regular rate and rhythm. RESPIRATORY: No accessory muscle use. Clear to auscultation. Breath sounds equal bilaterally. MUSCULOSKELETAL: Extremities without clubbing, cyanosis, or edema. No obvious deformities. Normal range of motion. Normal strength. Normal pincer strength. Neurovascular exam is normal. NEUROLOGICAL: Awake and alert. No obvious cranial nerve deficits. Motor grossly within normal limits. Five out of 5 muscle strength in the arms and legs. Normal speech. PSYCHIATRIC: Appropriate mood and affect; insight and judgment normal. Data Data Last Documented VS Vital Signs Date Time Temp Pulse Resp B/P (MAP) Pulse Ox O2 Delivery O2 Flow Rate FiO2 01/26/18 10:05 97.6 93 18 171/106 (127) 98 MDM Medical Decision Making Medical Screen Exam Complete: Yes Emergency Medical Condition: Yes Differential Diagnosis Laceration. Wound closure. Need for antibiotic. Narrative Course Patient is medically stable at time of exam. Laceration is repaired. Dressing is applied and she remain in place for 24 hours as discussed Sutures remain in place for 7-10 days. Patient is placed on Keflex 500 mg 3 times daily 7 days. Patient to follow-up sooner if worsening symptoms develop as needed. Procedures Procedure Narrative LACERATION LOCATION: Left first webspace LENGTH: 2 cm NUMBER OF STITCHES/TRUONG: 2 interrupted vertical mattress, 2 simple interrupted REPAIR: The area of the laceration was prepped with Betadine and sterilely draped. The laceration was infiltrated with 3 mL's 1% lidocaine. The wound was copiously irrigated and explored without evidence of foreign body, tendon injury or neurovascular injury. The wound was closed using 5-0 Prolene. This was a single layer repair. A sterile dressing was applied. The patient was advised to keep the dressing clean and dry. Patient tolerated the procedure well. Diagnosis Primary Impression: Laceration of left hand without complication, excluding fingers Qualified Codes: S61.412A - Laceration without foreign body of left hand, initial encounter Patient Instructions: Care For Your Stitches (ED), General Instructions Additional Instructions: Patient is medically stable at time of exam. Laceration is repaired. Dressing is applied and she remain in place for 24 hours as discussed Sutures remain in place for 7-10 days. Patient is placed on Keflex 500 mg 3 times daily 7 days. Patient to follow-up sooner if worsening symptoms develop as needed. Med/Other Pt SpecificInfo: Wound Care Disposition: 01 DISCHARGE HOME Condition: Stable Everett Ricks Jan 26, 2018 10:17
[2018-01-26] MEDS ORDERED: CEPH-460 PO (10:53)
== END 2018-01-26 11:02 | disposition home or self-care (01) ==
LOC: NEPD 10:02
DX: S61.412A Laceration without foreign body of left hand, initial encounter (principal); E11.9 Type 2 diabetes mellitus without complications; E78.00 Pure hypercholesterolemia, unspecified; I10 Essential (primary) hypertension; F17.200 Nicotine dependence, unspecified, uncomplicated; W45.8XXA Other foreign body or object entering through skin, initial encounter; Y93.H3 Activity, building and construction; Y92.008 Other place in unspecified non-institutional (private) residence as the place of occurrence of the external cause; Z79.84 Long term (current) use of oral hypoglycemic drugs
CPT/HCPCS: 12001

== ENCOUNTER 2018-01-31 07:49 | Day surgery (SDC) | payer OTHER ==
[~2018-01-31 07:49] MED LIST changes: -ALBU6.7H INH; +CEPH-460 PO; -PANT40TA3 PO; -PERC10TA27 PO; -SYMB160A INH; -guaiFENesin ER PO
[2018-01-31 08:25] VITALS: BP 149/98; PULSE 79; RESP 16; TEMP 98.7; O2SAT 95
[2018-01-31 09:20] VITALS: BP 167/111; PULSE 73; RESP 18; TEMP 97.8; O2SAT 96
[2018-01-31] MEDS ORDERED: HYDROmorphone HCL 2 MG TAB PO PRN (09:30)
[2018-01-31 09:37] VITALS: BP 177/120; PULSE 78; RESP 18; O2SAT 96
--- NOTE | 2018-01-31 12:15 | RADRPT ---
EXAM DATE/TIME: 01/31/2018 09:26 [facility] COMPARISON: No previous studies available for comparison. INDICATIONS : Midline abdominal wall seroma. MEDICAL HISTORY : Chronic obstructive pulmonary disease. Diabetes mellitus type 2. Adenocarcinoma, colon. Situs invers us. SURGICAL HISTORY : Cholecystectomy Hernia repair x 3. Port placement. Colectomy. ENCOUNTER: Initial ACUITY: 4 - 6 months PAIN SCORE: 0/10 LOCATION: Midline abdomen. FLUID: Total volume of 500 cc of clear, yellow fluid was removed. Fluid was sent to lab for ordered studies. Post procedure scanning reveals no hematoma or other complication. TECHNIQUE: 1. Ultrasound guidance for seroma drainage. 2. anterior abdominal wall seroma drainage. The risks, benefits and alternatives to the procedure were explained and verbal and written consent w as obtained. The site was prepped in sterile fashion. Full sterile technique was used, including ca p, mask, sterile gloves and gown and a large sterile sheet. Hand hygiene and 2% chlorhexidine and/or betadine/alcohol prep was utilized per protocol for cutaneous antisepsis. The skin and subcutaneous tissues were infiltrated with local anesthetic solution. Sterile gel and sterile probe cover were u tilized for ultrasound guidance. With the patient on the ultrasound table, ultrasound imaging was used to select the most appropriate approach for drainage. A dermatotomy was made with an 11 blade scalpel. A catheter (micropuncture k it) was introduced into the cavity and fluid was collected. The patient tolerated the procedure well and the left the ultrasound suite in stable condition. CONCLUSION: Uncomplicated seroma drainage. Bradley Huerta MD on January 31, 2018 at 12:11 Board Certified Radiologist. This report was verified electronically.
== END 2018-01-31 09:40 | disposition home or self-care (01) ==
LOC: HRAD 07:49 → HRIP 07:50 → HRAD 09:40
PROVIDERS: ATTEND Surgery
DX: L76.34 Postprocedural seroma of skin and subcutaneous tissue following other procedure (principal); Z01.818 Encounter for other preprocedural examination; J44.9 Chronic obstructive pulmonary disease, unspecified; E11.9 Type 2 diabetes mellitus without complications; Q89.3 Situs inversus
CPT/HCPCS: 10160; 75989; 87070; 87205

== ENCOUNTER 2018-09-19 16:42 | Inpatient (IN) ==
[2018-09-19] MEDS ORDERED: Morphine Sulfate Inj 8 MG/ML Vial IV.PUSH ONE (17:31)
[2018-09-19] MEDS ORDERED: Vancomycin Inj 1,000 MG in Sodium Chlor 0.9% Inj 250 ML IV.SIG ONE (17:31)
--- NOTE | 2018-09-19 17:37 | ED ---
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 Jorge Rose, here for evaluation of 2 different complaints. For one the patient is complaining of painful swelling to the incision where he had ventral hernia repair about a year ago by general surgeon Dr. Lau. This has been going on for about 3 or 4 days, and he called their office and a prescription for an antibiotic was called into his pharmacy for him, however the patient does not recall the name of this antibiotic. The patient reports the pain is severe, constant, worse with movements. He is also complaining of shortness of breath and cough. Cough is sometimes productive of brownish sputum. He denies hemoptysis. Shortness of breath is at rest, worse with exertion. He is unsure if he has had a fever. No history of DVT or PE. Related Data Home Medications Medication Instructions Recorded Confirmed aspirin 325 mg PO DAILY 09/19/18 09/19/18 Allergies Allergy/AdvReac Type Severity Reaction Status Date / Time No Known Allergies Allergy Verified 09/19/18 17:25 Review of Systems ROS: all other systems reviewed are negative [facility] Medical History Medical History COPD (chronic obstructive pulmonary disease) (Acute) Colon cancer (Acute) Diabetes mellitus (Acute) HTN (hypertension) (Acute) TIA (transient ischemic attack) (Acute) Umbilical hernia (Acute) Surgical History Surgical History History of hernia repair (Acute) Social History Social History Substance History: No History of Abuse Second Hand Smoke Exposure: No Smoking Status: Current every day smoker Tobacco Type: Cigarettes How Often Do You Have a Drink Containing Alcohol: 2 to 4 times a month Recent Travel in [facility] within the Last 8 Weeks: No Recent Out of Country Travel within the Last 8 Weeks: No Immunization History Tetanus Immunization: <5 Years Exam Narrative Exam Narrative: GENERAL: Pleasant, well-developed, well-nourished, overweight, no apparent distress. SKIN: Focused skin assessment warm/dry. HEAD: Atraumatic. Normocephalic. EYES: Pupils equal and round. No scleral icterus. No injection or drainage. ENT: No nasal bleeding or discharge. Mucous membranes pink and moist. NECK: Trachea midline. No JVD. CARDIOVASCULAR: Tachycardic, rate 140, regular. RESPIRATORY: No accessory muscle use. Clear to auscultation. Breath sounds equal bilaterally. GASTROINTESTINAL: Abdomen soft, nondistended. Ventral hernia incision that appears well-healed, however is edematous, fluctuant, surrounding induration and warmth, significantly tender. This area was evaluated using a linear ultrasound probe and shows a deep/small fluid collection about 2.5 cm deep with overlying cobblestoning consistent with cellulitis. MUSCULOSKELETAL: No obvious deformities. No clubbing. No cyanosis. No edema. NEUROLOGICAL: Awake and alert. No obvious cranial nerve deficits. Motor grossly within normal limits. Normal speech. PSYCHIATRIC: Appropriate mood and affect; insight and judgment normal. Course Initial Documented Vital Signs Temperature 99.5 F 09/19/18 16:55 Pulse Rate 99 H 09/19/18 16:55 Respiratory Rate 20 09/19/18 16:55 Blood Pressure 135/89 09/19/18 16:55 Pulse Oximetry 94 L 09/19/18 16:55 Last Documented Vital Signs Temperature 98.2 F 09/20/18 03:00 Pulse Rate 114 H 09/20/18 05:00 Respiratory Rate 19 09/20/18 03:45 Blood Pressure 112/84 09/20/18 03:00 Pulse Oximetry 98 09/20/18 03:00 Critical Care Time Critical Care Time: Yes Total Critical Care Time: 30 Attestation: Aggregate critical care time was 30 minutes. Time to perform other separately billable procedures was not included in the critical care time. My time did not include minutes spent treating any other patients simultaneously or on activities that did not directly contribute to the patient's treatment. The services I provided to this patient were to treat and/or prevent clinically significant deterioration that could result in: Dysrhythmia, sepsis, I provided critical care services requiring my management, as noted below: Chart data review, documentation time, medication orders and management, vital sign assessments/reviewing monitor data, ordering and reviewing lab tests, ordering and interpreting/reviewing x-rays and diagnostic studies, care of the patient and discussion of the patient with the admitting physicians. Sign Out Sign Out Data: Patient Sign Out occurred on 09/19/18 at 19:38. Patient's care was discussed, and care was transferred from Arcenio Ríos MD to Sheeba Brizuela MD. Sign Out Comment: Follow-up CT abdomen pelvis, CT pulmonary angiogram, and disposition. Last updated by Arcenio Ríos MD at 09/19/18 19:27 Post-Handoff Eval: Accepted in transfer of care from Dr. Ríos Medical Decision Making MDM Narrative Medical decision making narrative: Vital signs reviewed. CBC is essentially unremarkable. CMP is markable for slight renal insufficiency. Chest x-ray shows situs inversus, cardiomegaly, no signs of pulmonary edema. At approximately 7:00 PM at the end of my shift the patient was signed out to Dr. Brizuela to follow-up with CT abdomen pelvis, CT pulmonary angiogram, and disposition. Accepted in transfer of care from Dr. Murray for follow-up of CT abdomen pelvis CTA pulmonary angiogram and patient disposition plan for admission for sepsis cellulitis. Patient currently receiving IV fluid bolus for rate control also to presentation renal insufficiency suspect dehydration sepsis. CT pulmonary angiogram is negative for PE effusion infiltrate or or pneumothorax ; mild basilar atelectasis; situs inversus again noted CT abdomen pelvis shows evidence of chronic fluid collection just along the ventral hernia repair site that is unchanged but does show no induration of the subcutaneous tissue and small fat collection in the umbilical hernia. No intra- abdominal or intrapelvic abnormalities per reading radiologist. Patient informed of imaging results Patient complains of wheezing insistent with this history of emphysema/COPD and states he typically uses a Proventil inhaler or as needed nebulized treatments auscultation lung gipson identifies some mild expiratory wheeze no rales or rhonchi. Patient is receiving fluid bolus. Patient has received IV antibiotics. Patient remains in A. fib flutter with rapid ventricular response will try to slow rate with some IV Cardizem. In view of patient having symptomatic emphysema at this time we will try to avoid beta-yousuf. Patient will be admitted. @ 9:35 PM discussed with and accepted by Dr Cope for admit to [facility]. Medical Screen Exam Complete: Yes Emergency Medical Condition: Yes Differential Diagnosis Differential Diagnosis: Sepsis, cellulitis, abscess, graft infection, COPD, pneumonia, PE, A. fib with RVR Medical Records Medical records reviewed: Yes I reviewed the patient's medical records. Lab Data Lab results reviewed: Yes I reviewed the patient's lab results. Result diagrams: 09/19/18 17:38 09/19/18 17:38 Lab Results 09/19/18 09/19/18 09/19/18 Range/Units 17:38 17:38 17:38 WBC 9.7 (4.0-11.0) th/mm3 RBC 4.99 (4.50-5.90) mil/mm3 Hgb 15.2 (13.0-17.0) gm/dL Hct 43.5 (39.0-51.0) % MCV 87.2 (80.0-100.0) fL MCH 30.4 (27.0-34.0) pg MCHC 34.9 (32.0-36.0) % RDW 14.5 (11.6-17.2) % Plt Count 197 (150-450) th/mm3 MPV 8.5 (7.0-11.0) fL Neut % (Auto) 76.0 H (16.0-70.0) % Lymph % (Auto) 16.3 (9.0-44.0) % [place] % (Auto) 6.3 (0.0-8.0) % Eos % (Auto) 0.6 (0.0-4.0) % Baso % (Auto) 0.8 (0.0-2.0) % Neut # (Auto) 7.3 (1.8-7.7) th/mm3 Lymph # (Auto) 1.6 (1.0-4.8) th/mm3 [place] # (Auto) 0.6 (0.0-0.9) th/mm3 Eos # (Auto) 0.1 (0.0-0.4) th/mm3 Baso # (Auto) 0.1 (0.0-0.2) th/mm3 WBC Differential . Differential Comment Auto diff final PT 10.1 (9.8-11.6) sec INR 1.0 Ratio APTT 25.6 (23.4-31.7) sec Sodium 141 (136-145) meq/L Potassium 4.0 (3.5-5.1) meq/L Chloride 108 H (98-107) meq/L Carbon Dioxide 25.4 (21.0-32.0) meq/L Anion Gap 8 (5-15) meq/L BUN 26 H (7-18) mg/dL Creatinine 1.65 H (0.60-1.30) mg/dL Estimated GFR 43 L (>89) mL/min POC Glucose (68-110) mg/dl Random Glucose 150 H (74-106) mg/dL Lactic Acid (0.4-2.0) mmol/L Calcium 8.1 L (8.5-10.1) mg/dL Magnesium 2.0 (1.5-2.5) mg/dL Total Bilirubin 0.3 (0.2-1.0) mg/dL AST 30 (15-37) U/L ALT 38 (12-78) U/L Alkaline Phosphatase 80 (45-117) U/L Total Creatine Kinase (39-308) U/L CK-MB (CK-2) (0.5-3.6) ng/mL Troponin I (0.02-0.05) ng/mL Total Protein 6.7 (6.4-8.2) g/dL Albumin 3.5 (3.4-5.0) g/dL Urine Color (Yellw/Straw) Urine Clarity (Clear) Urine pH (5.0-8.5) Ur Specific [place] (1.002-1.035) Urine Protein (Neg-Trace) mg/dL Urine Glucose (UA) (Negative) mg/dL Urine Ketones (Negative) mg/dL Urine Occult Blood (Negative) Urine Nitrate (Negative) Urine Bilirubin (Negative) Urine Urobilinogen (Less than 2) mg/dL Ur Leukocyte Esterase (Negative) Urine RBC (0-3) /hpf Ur Squamous Epith Cells (0-5) /hpf Uric Acid Crystals (None) /hpf Urine Mucus (Occasional) /lpf Micro UA Comment Ur Microscopic Review Urine Culture Comments 09/19/18 09/19/18 09/19/18 Range/Units 17:38 17:38 18:54 WBC (4.0-11.0) th/mm3 RBC (4.50-5.90) mil/mm3 Hgb (13.0-17.0) gm/dL Hct (39.0-51.0) % MCV (80.0-100.0) fL MCH (27.0-34.0) pg MCHC (32.0-36.0) % RDW (11.6-17.2) % Plt Count (150-450) th/mm3 MPV (7.0-11.0) fL Neut % (Auto) (16.0-70.0) % Lymph % (Auto) (9.0-44.0) % [place] % (Auto) (0.0-8.0) % Eos % (Auto) (0.0-4.0) % Baso % (Auto) (0.0-2.0) % Neut # (Auto) (1.8-7.7) th/mm3 Lymph # (Auto) (1.0-4.8) th/mm3 [place] # (Auto) (0.0-0.9) th/mm3 Eos # (Auto) (0.0-0.4) th/mm3 Baso # (Auto) (0.0-0.2) th/mm3 WBC Differential Differential Comment PT (9.8-11.6) sec INR Ratio APTT (23.4-31.7) sec Sodium (136-145) meq/L Potassium (3.5-5.1) meq/L Chloride (98-107) meq/L Carbon Dioxide (21.0-32.0) meq/L Anion Gap (5-15) meq/L BUN (7-18) mg/dL Creatinine (0.60-1.30) mg/dL Estimated GFR (>89) mL/min POC Glucose (68-110) mg/dl Random Glucose (74-106) mg/dL Lactic Acid 1.6 (0.4-2.0) mmol/L Calcium (8.5-10.1) mg/dL Magnesium (1.5-2.5) mg/dL Total Bilirubin (0.2-1.0) mg/dL AST (15-37) U/L ALT (12-78) U/L Alkaline Phosphatase (45-117) U/L Total Creatine Kinase 170 (39-308) U/L CK-MB (CK-2) 2.9 (0.5-3.6) ng/mL Troponin I 0.04 (0.02-0.05) ng/mL Total Protein (6.4-8.2) g/dL Albumin (3.4-5.0) g/dL Urine Color Yellow (Yellw/Straw) Urine Clarity Hazy H (Clear) Urine pH 5.0 (5.0-8.5) Ur Specific [place] 1.025 (1.002-1.035) Urine Protein 30 H (Neg-Trace) mg/dL Urine Glucose (UA) Negative (Negative) mg/dL Urine Ketones Negative (Negative) mg/dL Urine Occult Blood Negative (Negative) Urine Nitrate Negative (Negative) Urine Bilirubin Negative (Negative) Urine Urobilinogen 2.0 H (Less than 2) mg/dL Ur Leukocyte Esterase Negative (Negative) Urine RBC 1 (0-3) /hpf Ur Squamous Epith Cells <1 (0-5) /hpf Uric Acid Crystals Rare H (None) /hpf Urine Mucus Few H (Occasional) /lpf Micro UA Comment Culture not ind Ur Microscopic Review Not Reportable Urine Culture Comments Culture not ind 09/20/18 Range/Units 03:45 WBC (4.0-11.0) th/mm3 RBC (4.50-5.90) mil/mm3 Hgb (13.0-17.0) gm/dL Hct (39.0-51.0) % MCV (80.0-100.0) fL MCH (27.0-34.0) pg MCHC (32.0-36.0) % RDW (11.6-17.2) % Plt Count (150-450) th/mm3 MPV (7.0-11.0) fL Neut % (Auto) (16.0-70.0) % Lymph % (Auto) (9.0-44.0) % [place] % (Auto) (0.0-8.0) % Eos % (Auto) (0.0-4.0) % Baso % (Auto) (0.0-2.0) % Neut # (Auto) (1.8-7.7) th/mm3 Lymph # (Auto) (1.0-4.8) th/mm3 [place] # (Auto) (0.0-0.9) th/mm3 Eos # (Auto) (0.0-0.4) th/mm3 Baso # (Auto) (0.0-0.2) th/mm3 WBC Differential Differential Comment PT (9.8-11.6) sec INR Ratio APTT (23.4-31.7) sec Sodium (136-145) meq/L Potassium (3.5-5.1) meq/L Chloride (98-107) meq/L Carbon Dioxide (21.0-32.0) meq/L Anion Gap (5-15) meq/L BUN (7-18) mg/dL Creatinine (0.60-1.30) mg/dL Estimated GFR (>89) mL/min POC Glucose 98 (68-110) mg/dl Random Glucose (74-106) mg/dL Lactic Acid (0.4-2.0) mmol/L Calcium (8.5-10.1) mg/dL Magnesium (1.5-2.5) mg/dL Total Bilirubin (0.2-1.0) mg/dL AST (15-37) U/L ALT (12-78) U/L Alkaline Phosphatase (45-117) U/L Total Creatine Kinase (39-308) U/L CK-MB (CK-2) (0.5-3.6) ng/mL Troponin I (0.02-0.05) ng/mL Total Protein (6.4-8.2) g/dL Albumin (3.4-5.0) g/dL Urine Color (Yellw/Straw) Urine Clarity (Clear) Urine pH (5.0-8.5) Ur Specific [place] (1.002-1.035) Urine Protein (Neg-Trace) mg/dL Urine Glucose (UA) (Negative) mg/dL Urine Ketones (Negative) mg/dL Urine Occult Blood (Negative) Urine Nitrate (Negative) Urine Bilirubin (Negative) Urine Urobilinogen (Less than 2) mg/dL Ur Leukocyte Esterase (Negative) Urine RBC (0-3) /hpf Ur Squamous Epith Cells (0-5) /hpf Uric Acid Crystals (None) /hpf Urine Mucus (Occasional) /lpf Micro UA Comment Ur Microscopic Review Urine Culture Comments Imaging Data Radiologist's impression: Abdomen/Pelvis CT 09/19/18 17:31 CONCLUSION: 1. Previous ventral hernia repair. Associated large, chronic and nonindurated appearing intraperitoneal fluid collection is without appreciable change but there is a new, small and indurated appearing subcutaneous fluid collection at the umbilicus. Just above the subcutaneous fluid collection is a new area of herniated fat. 2. Enlarged and fatty infiltrated liver, similar to before. 3. No acute abnormalities are seen within the abdominal or pelvic cavity. Patient has situs inversus. There is a moderate size hiatal hernia. Chest CTA 09/19/18 17:31 CONCLUSION: 1. No pulmonary embolus. 2. Very mild dependent atelectasis of both lungs. No pneumonia, effusion or pneumothorax. 3. Mild to moderate emphysema. 4. Coronary artery calcification. 5. Moderate size hiatal hernia. 6. Situs inversus. Chest X-Ray 09/19/18 17:31 CONCLUSION: 1. Situs inversus. 2. Mild cardiomegaly with no evidence of pulmonary edema. ECG Data Attestation: I personally reviewed and interpreted this ECG as follows: (A. fib , rate 118, PVC, normal axis, T wave inversions in precordial leads and lateral limb leads) Discharge Plan Discharge Disposition Patient Disposition: 30 Still Patient Discharge Condition Condition: Stable Discharge Details Diagnosis: Cellulitis of abdominal wall, Atrial fibrillation with RVR, COPD (chronic obstructive pulmonary disease) Physicians Team ED Provider: Sheeba Brizuela Primary Care Provider: Primary Care Davion,Estela Attending Provider: Samson Vallejo Other Providers: Roberto Tomas ; Floyd Alvares Status ED Status: Left Department Discharge Information Discharge Date/Time: 09/19/18 23:38
[2018-09-19] MEDS ORDERED: Sod Chloride 0.9% Inj 800 ML IV.SIG SCH (17:45)
[2018-09-19] MEDS ORDERED: Sod Chloride 0.9% Inj 1,000 ML IV.SIG SCH ×2 (17:45→20:30)
[2018-09-19 17:51] LABS: Baso # (Auto) 0.1 th/mm3 (0.0-0.2); Baso % (Auto) 0.8 % (0.0-2.0); Eos # (Auto) 0.1 th/mm3 (0.0-0.4); Eos % (Auto) 0.6 % (0.0-4.0); Hematocrit 43.5 % (39.0-51.0); Hemoglobin 15.2 gm/dL (13.0-17.0); Lymph # (Auto) 1.6 th/mm3 (1.0-4.8); Lymph % (Auto) 16.3 % (9.0-44.0); Mean Corpuscular HGB Conc 34.9 % (32.0-36.0); Mean Corpuscular Hemoglobin 30.4 pg (27.0-34.0); Mean Corpuscular Volume 87.2 fL (80.0-100.0); Mean Platelet Volume 8.5 fL (7.0-11.0); Mono # (Auto) 0.6 th/mm3 (0.0-0.9); Mono % (Auto) 6.3 % (0.0-8.0); Neut # (Auto) 7.3 th/mm3 (1.8-7.7); Platelet Count 197 th/mm3 (150-450); Red Blood Count 4.99 mil/mm3 (4.50-5.90); Red Cell Distribution Width 14.5 % (11.6-17.2); White Blood Count 9.7 th/mm3 (4.0-11.0)
--- NOTE | 2018-09-19 17:56 | XR ---
EXAM DATE: 09/19/2018 5:47 PM EST AGE/SEX: 58 years / Male INDICATIONS: Fever. CLINICAL DATA: This is the patient's initial encounter. Patient reports that signs and symptoms have been present for 3 days and indicates a pain score of 0/10. MEDICAL/SURGICAL HISTORY: . Hernia, umbilical. Diverticulitis. Hypertension. Situs inversus. None. COMPARISON: [facility] [place], CT THORAX W CONTRAST, 11/26/2017. . FINDINGS: A single AP semierect portable view of the chest was obtained and again demonstrates the patient's kn own situs inversus. There are no confluent infiltrates or effusions. The heart size appears mildly pr ominent with no perihilar edema. The bony thorax is intact. CONCLUSION: 1. Situs inversus. 2. Mild cardiomegaly with no evidence of pulmonary edema. Electronically signed by: Alistair Alba MD 09/19/2018 5:55 PM EST
[2018-09-19 18:04] LABS: Activated Partial Thrombo Time 25.6 sec (23.4-31.7); Prothrombin Time 10.1 sec (9.8-11.6)
[2018-09-19 18:14] LABS: Albumin 3.5 g/dL (3.4-5.0); Anion Gap 8 meq/L (5-15); Aspartate Aminotransferase 30 U/L (15-37); Blood Urea Nitrogen 26 mg/dL (7-18); Calcium 8.1 mg/dL (8.5-10.1); Carbon Dioxide 25.4 meq/L (21.0-32.0); Chloride 108 meq/L (98-107); Glomerular Filtration Rate 43 mL/min (>89); Glucose,Random 150 mg/dL (74-106); Sodium 141 meq/L (136-145)
[2018-09-19 18:15] LABS: Alanine Aminotransferase 38 U/L (12-78)
[2018-09-19 18:18] LABS: Alkaline Phosphatase 80 U/L (45-117); Total Protein 6.7 g/dL (6.4-8.2)
[2018-09-19 18:19] LABS: Creatine Kinase 170 U/L (39-308); Troponin I 0.04 ng/mL (0.02-0.05)
[2018-09-19 18:31] LABS: Creatine Kinase MB 2.9 ng/mL (0.5-3.6)
[2018-09-19] MEDS ORDERED: HYDROmorphone PF Inj 2 MG/ML Vial IV.PUSH ONE ×2 (18:54→20:28)
[2018-09-19 19:43] LABS: Bilirubin,Urine Negative (Negative); Clarity,Urine Hazy (Clear); Color,Urine Yellow (Yellw/Straw); Glucose,Urine (UA) Negative (Negative); Leukocyte Esterase,Urine Negative (Negative); Mucus,Urine Few /lpf (Occasional); Nitrite,Urine Negative (Negative); Specific Gravity,Urine 1.025 (1.002-1.035); Squamous Epithelial Cell,Urine <1 /hpf (0-5); Uric Acid Crystals,Urine Rare /hpf
--- NOTE | 2018-09-19 19:43 | CT ---
EXAM DATE: 09/19/2018 7:36 PM EST AGE/SEX: 58 years / Male INDICATIONS: Shortness of breath CLINICAL DATA: This is the patient's initial encounter. Patient reports that signs and symptoms have been present for 1 day and indicates a pain score of 5/10. MEDICAL/SURGICAL HISTORY: Chronic obstructive pulmonary disease. Hypertension. Diabetes. colon c ancer Umbilical hernia repair. Colon resection. RADIATION DOSE: 9.06 CTDI (mGy) COMPARISON: [facility] [place], CT THORAX W CONTRAST, 11/26/2017. . TECHNIQUE: Volumetric scanning was performed using a multi-row detector CT scanner during bolus infu atif of 73 ml Omnipaque 350 (iohexol) nonionic water-soluble contrast as a cumulative dose for multi ple exams. The data was post processed with a variety of visualization algorithms including full volu me maximum intensity projection and sliding thin slab reformation. Using automated exposure control and adjustment of the mA and/or kV according to patient size, radiation dose was kept as low as reaso nably achievable to obtain optimal diagnostic quality images. DICOM format image data is available e lectronically for review and comparison. FINDINGS: Findings of situs inversus noted. No pulmonary embolus. Very mild dependent atelectasis seen of the p osterior lung bases. Mild to moderate emphysema noted. Normal heart size. There is coronary artery calcification. Moderate size hiatal hernia. CONCLUSION: 1. No pulmonary embolus. 2. Very mild dependent atelectasis of both lungs. No pneumonia, effusion or pneumothorax. 3. Mild to moderate emphysema. 4. Coronary artery calcification. 5. Moderate size hiatal hernia. 6. Situs inversus. Electronically signed by: Rob Nelson MD 09/19/2018 7:42 PM EST
--- NOTE | 2018-09-19 19:53 | CT ---
EXAM DATE: 09/19/2018 7:42 PM EST AGE/SEX: 58 years / Male INDICATIONS: Redness and pain around old hernia incision CLINICAL DATA: This is the patient's initial encounter. Patient reports that signs and symptoms have been present for 1 day and indicates a pain score of 5/10. MEDICAL/SURGICAL HISTORY: Chronic obstructive pulmonary disease. Diabetes. Hypertension. Col on cancer Umbilical hernia repair. Colon resection. ORAL CONTRAST: No oral contrast ingested. RADIATION DOSE: 18.42 CTDI (mGy) COMPARISON: [facility] [place], CT ABDOMEN & PELVIS W CONTRAST, 11/26/2017. . TECHNIQUE: Multiple contiguous axial images were obtained through the abdomen and pelvis following b olus infusion of 73 ml Omnipaque 350 (iohexol) nonionic water-soluble contrast as a cumulative dose for multiple exams. No oral contrast ingested. Using automated exposure control and adjustment of t he mA and/or kV according to patient size, radiation dose was kept as low as reasonably achievable to obtain optimal diagnostic quality images. DICOM format image data is available electronically for r eview and comparison. FINDINGS: Patient has situs inversus. Liver measures 20.3 cm craniocaudal and is slightly fatty infiltrated. No focal hepatic lesion. Spleen, pancreas, adrenal glands and kidneys are all within normal limits. No obstruction or acute inflammatory changes are seen of the gastrointestinal tract. Scattered divert icula of colon without diverticulitis. There is an anastomosis in the right lower quadrant of the sig moid colon. No free fluid or free air. No lymphadenopathy. Moderate size hiatal hernia again noted Surgical changes of ventral hernia repair again noted and with mesh. There is an associated chronic f luid collection that measures 7.7 x 13.1 x 13.3 cm, not significantly changed. However, there is a ne w fluid collection in the overlying anterior abdominal wall at the umbilicus and measures approximate ly 2.3 x 3 cm x 3.8 in size, series 304 image 36. The surrounding subcutaneous fat appears mildly ind urated. Just superior to this subcutaneous fluid collection is new herniation of fat measuring approx imately 5.8 cm across. CONCLUSION: 1. Previous ventral hernia repair. Associated large, chronic and nonindurated appearing intraperiton eal fluid collection is without appreciable change but there is a new, small and indurated appearing subcutaneous fluid collection at the umbilicus. Just above the subcutaneous fluid collection is a new area of herniated fat. 2. Enlarged and fatty infiltrated liver, similar to before. 3. No acute abnormalities are seen within the abdominal or pelvic cavity. Patient has situs inversus . There is a moderate size hiatal hernia. Electronically signed by: Rob Nelson MD 09/19/2018 7:52 PM EST
[2018-09-19] MEDS ORDERED: Vancomycin Consult Pharmacy OTHER PRN (22:40)
[2018-09-19] MEDS ORDERED: Dextrose 50% in Water 50 ML Vial IV.PUSH PRN (22:45)
--- NOTE | 2018-09-19 22:58 | P.HP ---
History of Present Illness Service: [facility] Primary Care Physician: No Primary Care Physician History of Present Illness: 58-year-old male with a past medical history significant for previous TIA, history of colon cancer, COPD and diabetes mellitus presents to the emergency department for evaluation of abdominal pain, swelling and redness times 1 week. The patient denies any associated fevers or chills. He had a hernia repair with Dr. Lau approximately 1 year ago. He reports he has had one episode of cellulitis requiring oral antibiotics since that time. He is status post seroma drainage on 02/10/18. He complains of significant abdominal pain however is moving about his room and eating and drinking normally. He denies any nausea /vomiting/diarrhea. No abdominal distention. No chest pain or shortness of breath. No focal neurologic deficits. The patient denies any palpitations however was found to be in atrial fibrillation with rapid ventricular response on his arrival to the emergency department. He does not have any previous history of A. fib or coronary artery disease. Inpatient Certification: I certify that the inpatient services were ordered in accordance with Medicare regulations governing the order. This includes certification that hospital inpatient services are reasonable and necessary and in the case of services not specified as inpatient-only under 42 CFR 419.22(n), that they are appropriately provided as inpatient services in accordance to with the 2-midnight benchmark under 43 CFR 412.3(e) Estimated Total Length of Stay (Days): 2 Plans for Post Hospital Care: Not yet determined Review of Systems All other systems reviewed negative except as stated in HPI REPLACED BY [facility] - History History Provided By: Patient - Medical History Medical History: Medical History (Last Updated 09/19/18 @ 17:22 by Viridiana Farrar RN) COPD (chronic obstructive pulmonary disease) Colon cancer Diabetes mellitus HTN (hypertension) TIA (transient ischemic attack) Umbilical hernia - Surgical History Surgical History: Surgical History (Last Updated 09/19/18 @ 17:22 by Viridiana Farrar RN) History of hernia repair - Tobacco History Tobacco Use In Past 30 Days: Yes Smoking Status: Heavy tobacco smoker Tobacco Type: Cigarettes - Alcohol History How Often Do You Have a Drink Containing Alcohol: 2 to 4 times a month - Substance Use History Substance History: No History of Abuse - Travel History Recent Travel in the [place] Within the Last 8 Weeks: No Recent Travel Out of the Country Within the Last 8 Weeks: No - Immunization History Tetanus Immunization: <5 Years Medications and Allergies Active Medications: Active Medications Aspirin (Aspirin) 325 mg PO DAILY [facility] Dextrose (D50w Vial) 50 ml IV.PUSH UNSCH PRN PRN Reason: PER HYPOGLYCEMIA PROTOCOL Enoxaparin Sodium (Lovenox Inj) 100 mg SQ Q12H [facility] Glucagon (Glucagon Inj) 1 mg OTHER PRN PRN PRN Reason: for Hypoglycemia Protocol Sodium Chloride (Ns Inj) 1,000 mls @ 0 mls/hr IV.SIG .Q0M [facility] Last Infusion: 09/19/18 18:50 Dose: Infused Sodium Chloride (Ns Inj) 800 mls @ 0 mls/hr IV.SIG .Q0M [facility] Last Infusion: 09/19/18 19:42 Dose: Infused Piperacillin/Tazobactam/Dextrose (Zosyn 3.375 Gm Premix) 50 mls @ 100 mls/hr IV.SIG Q6H [facility] Insulin Aspart (Novolog Insulin Correctional Sugar Inj) 0 unit SQ ACHS AND 3AM [facility]; Protocol Pharmacy Profile Note (Vancomycin Consult Pharmacy) 1 each OTHER UNSCH PRN PRN Reason: Pharmacy to dose Sodium Chloride (Ns Flush) 2 ml IV.FLUSH PRN PRN PRN Reason: FLUSH AFTER USING IV ACCESS Sodium Chloride (Ns Flush) 2 ml IV.FLUSH BID [facility] Allergies Allergy/AdvReac Type Severity Reaction Status Date / Time No Known Allergies Allergy Verified 09/19/18 17:25 Home Medications Medication Instructions Recorded Confirmed Type aspirin 325 mg PO DAILY 09/19/18 09/19/18 History Exam Vital signs: Vital Signs 09/19/18 16:55 09/19/18 17:21 09/19/18 18:04 Temperature 99.5 F Pulse Rate 99 H 140 H 130 H Respiratory Rate 20 30 H Blood Pressure 135/89 113/67 Pulse Oximetry 94 L 94 L 92 L 09/19/18 20:38 09/19/18 20:43 09/19/18 20:47 Temperature Pulse Rate 130 H 130 H 101 H Respiratory Rate 35 H 25 H Blood Pressure 124/73 Pulse Oximetry 93 L Intake & Output 09/19/18 09/19/18 09/20/18 06:59 18:59 06:59 Intake Total 1250 / 1250 1999 Balance 1250 / 1250 1999 Weight 113.398 kg Intake: IV 1250 / 1250 1999 NS Inj 1,000 ML @ 1000 mls/hr 1000 / 1000 1999 IV.SIG BOLUS [facility] Rx#:[id number] Vancomycin Inj 1,000 MG In NS 250 / 250 Inj 250 ML @ 250 mls/hr IV.SIG ONCE ONE Rx#:[id number] Narrative: Gen.: No acute distress Head: Normocephalic. Atraumatic. EENT: Pupils equal round and reactive to light. Nose without drainage. Airway intact. Throat without injection. Cardiovascular: Tachycardic. Irregularly irregular rhythm. No murmurs, rubs or gallops. Respiratory: Lungs clear to auscultation bilaterally. No wheezes or rhonchi. Abdomen: Soft, nontender, nondistended. No peritoneal signs. Musculoskeletal: No gross deformities. No edema. Skin: Central abdominal erythema that is warm to the touch. No drainage noted. No areas of fluctuance. Neuro: Sensory and motor grossly intact. Cranial nerves II through XII grossly intact. Results - Labs CBC & Chem 7: 09/19/18 17:38 09/19/18 17:38 Labs: Laboratory Results - last 24 hr 09/19/18 09/19/18 09/19/18 17:38 17:38 17:38 WBC 9.7 RBC 4.99 Hgb 15.2 Hct 43.5 MCV 87.2 MCH 30.4 MCHC 34.9 RDW 14.5 Plt Count 197 MPV 8.5 Neut % (Auto) 76.0 H Lymph % (Auto) 16.3 [place] % (Auto) 6.3 Eos % (Auto) 0.6 Baso % (Auto) 0.8 Neut # (Auto) 7.3 Lymph # (Auto) 1.6 [place] # (Auto) 0.6 Eos # (Auto) 0.1 Baso # (Auto) 0.1 WBC Differential . Differential Comment Auto diff final PT 10.1 INR 1.0 APTT 25.6 Sodium 141 Potassium 4.0 Chloride 108 H Carbon Dioxide 25.4 Anion Gap 8 BUN 26 H Creatinine 1.65 H Estimated GFR 43 L Random Glucose 150 H Lactic Acid Calcium 8.1 L Magnesium 2.0 Total Bilirubin 0.3 AST 30 ALT 38 Alkaline Phosphatase 80 Total Creatine Kinase CK-MB (CK-2) Troponin I Total Protein 6.7 Albumin 3.5 Urine Color Urine Clarity Urine pH Ur Specific [place] Urine Protein Urine Glucose (UA) Urine Ketones Urine Occult Blood Urine Nitrate Urine Bilirubin Urine Urobilinogen Ur Leukocyte Esterase Urine RBC Ur Squamous Epith Cells Uric Acid Crystals Urine Mucus Micro UA Comment Ur Microscopic Review Urine Culture Comments 09/19/18 09/19/18 09/19/18 17:38 17:38 18:54 WBC RBC Hgb Hct MCV MCH MCHC RDW Plt Count MPV Neut % (Auto) Lymph % (Auto) [place] % (Auto) Eos % (Auto) Baso % (Auto) Neut # (Auto) Lymph # (Auto) [place] # (Auto) Eos # (Auto) Baso # (Auto) WBC Differential Differential Comment PT INR APTT Sodium Potassium Chloride Carbon Dioxide Anion Gap BUN Creatinine Estimated GFR Random Glucose Lactic Acid 1.6 Calcium Magnesium Total Bilirubin AST ALT Alkaline Phosphatase Total Creatine Kinase 170 CK-MB (CK-2) 2.9 Troponin I 0.04 Total Protein Albumin Urine Color Yellow Urine Clarity Hazy H Urine pH 5.0 Ur Specific [place] 1.025 Urine Protein 30 H Urine Glucose (UA) Negative Urine Ketones Negative Urine Occult Blood Negative Urine Nitrate Negative Urine Bilirubin Negative Urine Urobilinogen 2.0 H Ur Leukocyte Esterase Negative Urine RBC 1 Ur Squamous Epith Cells <1 Uric Acid Crystals Rare H Urine Mucus Few H Micro UA Comment Culture not ind Ur Microscopic Review Not Reportable Urine Culture Comments Culture not ind - Imaging Impressions Abdomen/Pelvis CT 09/19/18 17:31 CONCLUSION: 1. Previous ventral hernia repair. Associated large, chronic and nonindurated appearing intraperitoneal fluid collection is without appreciable change but there is a new, small and indurated appearing subcutaneous fluid collection at the umbilicus. Just above the subcutaneous fluid collection is a new area of herniated fat. 2. Enlarged and fatty infiltrated liver, similar to before. 3. No acute abnormalities are seen within the abdominal or pelvic cavity. Patient has situs inversus. There is a moderate size hiatal hernia. Chest CTA 09/19/18 17:31 CONCLUSION: 1. No pulmonary embolus. 2. Very mild dependent atelectasis of both lungs. No pneumonia, effusion or pneumothorax. 3. Mild to moderate emphysema. 4. Coronary artery calcification. 5. Moderate size hiatal hernia. 6. Situs inversus. Chest X-Ray 09/19/18 17:31 CONCLUSION: 1. Situs inversus. 2. Mild cardiomegaly with no evidence of pulmonary edema. Caprini VTE Risk Assessment Caprini VTE Risk Assessment: Moderate/High Risk (score >= 2) Caprini Risk Assessment Model: Point Value = 1 Point Value = 2 Point Value = 3 Point Value = 5 Age 41-60 Minor surgery BMI > 25 kg/m2 Swollen legs Varicose veins or History of unexplained or recurrent spontaneous Oral contraceptives or hormone replacement Sepsis (< 1 month) Serious lung disease, including pneumonia (< 1 month) Abnormal pulmonary function Acute myocardial infarction Congestive heart failure (< 1 month) History of inflammatory bowel disease Medical patient at bed rest Age 61-74 Arthroscopic surgery Major open surgery (> 45 min) Laparoscopic surgery (> 45 min) Malignancy Confined to bed (> 72 hours) Immobilizing plaster cast Central venous access Age >= 75 History of VTE Family history of VTE Factor V Leiden Prothrombin [id number] Lupus anticoagulant Anticardiolipin antibodies Elevated serum homocysteine Heparin-induced thrombocytopenia Other congenital or acquired thrombophilia Stroke (< 1 month) Elective arthroplasty Hip, pelvis, or leg fracture Acute spinal cord injury (< 1 month) Prophylaxis Regimen: Total Risk Factor Score Risk Level Prophylaxis Regimen 0-1 Low Early ambulation 2 Moderate Order ONE of the following: *Sequential Compression Device (SCD) *Heparin 5000 units SQ BID 3-4 Higher Order ONE of the following medications: *Heparin 5000 units SQ TID *Enoxaparin/Lovenox 40 mg SQ daily (WT < 150 kg, CrCl > 30 mL/min) *Enoxaparin/Lovenox 30 mg SQ daily (WT < 150 kg, CrCl > 10-29 mL/min) *Enoxaparin/Lovenox 30 mg SQ BID (WT < 150 kg, CrCl > 30 mL/min) AND/OR *Sequential Compression Device (SCD) 5 or more Highest Order ONE of the following medications: *Heparin 5000 units SQ TID (Preferred with Epidurals) *Enoxaparin/Lovenox 40 mg SQ daily (WT < 150 kg, CrCl > 30 mL/min) *Enoxaparin/Lovenox 30 mg SQ daily (WT < 150 kg, CrCl > 10-29 mL/min) *Enoxaparin/Lovenox 30 mg SQ BID (WT < 150 kg, CrCl > 30 mL/min) AND *Sequential Compression Device (SCD) Assessment and Plan - Plan Assessment/plan: 1. New onset atrial fibrillation with rapid ventricular response EKG significant for A. fib with RVR, pulse 118, no ST segment elevations or depressions, personally reviewed Status post IV diltiazem in the ED Monitor on telemetry, begin diltiazem drip if elevated heart rate persists Therapeutic Lovenox Echo pending Cardiology consulted, appreciate assistance 2. Abdominal wall cellulitis CT of the abdomen/pelvis reveals persistent seroma with new small subcutaneous fluid collection at the umbilicus General surgery consulted, appreciate assistance Vancomycin/Zosyn Blood cultures pending 3. Diabetes mellitus Sliding scale insulin Monitor blood glucose 4. COPD Atrovent Supplemental oxygen as needed 5. AK I Creatinine 1.65, baseline 1 IV fluid hydration Monitor renal function 6. History of situs inversus FEN N.p.o. Electrolytes: Monitor and replete as needed NS at 125 cc/hour Lovenox
[2018-09-19] MEDS: Enoxaparin Inj 100 MG/ML Syringe SQ SCH (23:54)
[2018-09-19] MEDS: Sod Chloride 0.9% Inj 1,000 ML IV.CONT SCH (23:55)
[2018-09-20] MEDS: Piperacil/Tazo 3.375 GM Premix 50 ML IV.SIG SCH ×4 (00:54→17:09)
[2018-09-20] MEDS ORDERED: Vancomycin Inj 1,500 MG in Sodium Chlor 0.9% Inj 500 ML IV.SIG ONE (01:00)
[2018-09-20] MEDS ORDERED: Morphine Sulfate Inj 2 MG/ML Vial IV.PUSH ONE (01:30)
[2018-09-20] MEDS: Insulin NovoLOG Aspart Correctional Sugar Inj SQ SCH ×5 (04:43→20:52)
[2018-09-20] MEDS: Sod Chloride 0.9% Inj 1,000 ML IV.CONT SCH ×2 (06:24→08:09)
[2018-09-20 07:33] LABS: Hematocrit 39.8 % (39.0-51.0); Hemoglobin 13.4 gm/dL (13.0-17.0); Mean Corpuscular HGB Conc 33.5 % (32.0-36.0); Mean Corpuscular Hemoglobin 29.6 pg (27.0-34.0); Mean Corpuscular Volume 88.3 fL (80.0-100.0); Mean Platelet Volume 8.5 fL (7.0-11.0); Platelet Count 146 th/mm3 (150-450); Red Blood Count 4.51 mil/mm3 (4.50-5.90); Red Cell Distribution Width 14.8 % (11.6-17.2); White Blood Count 7.1 th/mm3 (4.0-11.0)
[2018-09-20] MEDS: Aspirin 325 MG Tablet PO SCH (08:08)
[2018-09-20 08:39] LABS: Calcium 7.4 mg/dL (8.5-10.1); Carbon Dioxide 20.5 meq/L (21.0-32.0); Potassium 3.8 meq/L (3.5-5.1)
[2018-09-20 08:58] LABS: Calcium-Albumin Corrected 8.2 mg/dL (8.5-10.1); Total Protein 5.6 g/dL (6.4-8.2)
[2018-09-20] MEDS: Enoxaparin Inj 100 MG/ML Syringe SQ SCH ×3 (09:51→22:30)
[2018-09-20] MEDS ORDERED: Senna/Docusate Sodium 8.6/50 MG Tablet PO PRN (10:27)
[2018-09-20] MEDS ORDERED: Naloxone Inj 0.4 MG/ML Vial IV.PUSH PRN (10:27)
--- NOTE | 2018-09-20 11:08 | P.PN ---
Subjective Interval history: Follow-up new onset A. fib/abdominal wall cellulitis and hernia September 20, 2018-patient seen and examined, denies any chest pain or shortness. Patient is complaining of abdominal pain and is requesting narcotics. Currently afebrile. Physical Exam Vital signs: Vital Signs 09/19/18 16:55 09/19/18 17:21 09/19/18 18:04 Temperature 99.5 F Pulse Rate 99 H 140 H 130 H Respiratory Rate 20 30 H Blood Pressure 135/89 113/67 Pulse Oximetry 94 L 94 L 92 L 09/19/18 20:38 09/19/18 20:43 09/19/18 20:47 Temperature Pulse Rate 130 H 130 H 101 H Respiratory Rate 35 H 25 H Blood Pressure 124/73 Pulse Oximetry 93 L 09/19/18 23:00 09/20/18 01:00 09/20/18 02:00 Temperature 98.5 F Pulse Rate 114 H 124 H 108 H Respiratory Rate 18 Blood Pressure 122/78 Pulse Oximetry 98 09/20/18 03:00 09/20/18 03:45 09/20/18 04:00 Temperature 98.2 F Pulse Rate 110 H 70 110 H Respiratory Rate 16 19 Blood Pressure 112/84 Pulse Oximetry 98 09/20/18 05:00 09/20/18 06:00 09/20/18 07:00 Temperature Pulse Rate 114 H 117 H 106 H Respiratory Rate Blood Pressure Pulse Oximetry 09/20/18 08:00 09/20/18 09:00 09/20/18 09:30 Temperature 98.2 F Pulse Rate 106 H 102 H Respiratory Rate 16 Blood Pressure 124/90 Pulse Oximetry 96 94 L 09/20/18 10:00 Temperature Pulse Rate 114 H Respiratory Rate Blood Pressure Pulse Oximetry Intake & Output 09/19/18 09/20/18 09/20/18 18:59 06:59 18:59 Intake Total 1250 / 1250 2615 / 2615 1000 / 1000 Output Total 500 / 500 Balance 1250 / 1250 2115 / 2115 1000 / 1000 Weight 113.398 kg 117.5 kg Intake: IV 1250 / 1250 2615 / 2615 1000 / 1000 NS Inj 1,000 ML @ 125 mls/hr IV 1000 / 1000 .CONT .Q8H [facility] Rx#:[id number] Zosyn 3.375 GM Premix 50 ML @ 100 / 100 100 mls/hr IV.SIG Q6H [facility] Rx#: [id number] NS Inj 1,000 ML @ 1000 mls/hr 1000 / 1000 2000 / 2000 IV.SIG BOLUS [facility] Rx#:[id number] Vancomycin Inj 1,000 MG In NS 250 / 250 Inj 250 ML @ 250 mls/hr IV.SIG ONCE ONE Rx#:[id number] Vancomycin Inj 1,500 MG In NS 515 / 515 Inj 500 ML @ 250 mls/hr IV.SIG ONCE@0100 ONE Rx#:[id number] Oral 0 / 0 Output: Urine 500 / 500 Narrative: Gen.: No acute distress Head: Normocephalic. Atraumatic. EENT: Pupils equal round and reactive to light. Nose without drainage. Airway intact. Throat without injection. Cardiovascular: Tachycardic. Irregularly irregular rhythm. No murmurs, rubs or gallops. Respiratory: Lungs clear to auscultation bilaterally. No wheezes or rhonchi. Abdomen: Soft, nontender, nondistended. No peritoneal signs. Musculoskeletal: No gross deformities. No edema. Skin: Central abdominal erythema that is warm to the touch. No drainage noted. No areas of fluctuance. Neuro: Sensory and motor grossly intact. Cranial nerves II through XII grossly intact. Results - Labs CBC & Chem 7: 09/20/18 06:40 09/20/18 06:40 Laboratory Results - last 24 hr 09/19/18 09/19/18 09/19/18 17:38 17:38 17:38 WBC 9.7 RBC 4.99 Hgb 15.2 Hct 43.5 MCV 87.2 MCH 30.4 MCHC 34.9 RDW 14.5 Plt Count 197 MPV 8.5 Neut % (Auto) 76.0 H Lymph % (Auto) 16.3 [place] % (Auto) 6.3 Eos % (Auto) 0.6 Baso % (Auto) 0.8 Neut # (Auto) 7.3 Lymph # (Auto) 1.6 [place] # (Auto) 0.6 Eos # (Auto) 0.1 Baso # (Auto) 0.1 WBC Differential . Differential Comment Auto diff final PT 10.1 INR 1.0 APTT 25.6 Sodium 141 Potassium 4.0 Chloride 108 H Carbon Dioxide 25.4 Anion Gap 8 BUN 26 H Creatinine 1.65 H Estimated GFR 43 L POC Glucose Random Glucose 150 H Lactic Acid Calcium 8.1 L Prot Corrected Calcium Magnesium 2.0 Total Bilirubin 0.3 AST 30 ALT 38 Alkaline Phosphatase 80 Total Creatine Kinase CK-MB (CK-2) Troponin I Total Protein 6.7 Albumin 3.5 Urine Color Urine Clarity Urine pH Ur Specific [place] Urine Protein Urine Glucose (UA) Urine Ketones Urine Occult Blood Urine Nitrate Urine Bilirubin Urine Urobilinogen Ur Leukocyte Esterase Urine RBC Ur Squamous Epith Cells Uric Acid Crystals Urine Mucus Micro UA Comment Ur Microscopic Review Urine Culture Comments 09/19/18 09/19/18 09/19/18 17:38 17:38 18:54 WBC RBC Hgb Hct MCV MCH MCHC RDW Plt Count MPV Neut % (Auto) Lymph % (Auto) [place] % (Auto) Eos % (Auto) Baso % (Auto) Neut # (Auto) Lymph # (Auto) [place] # (Auto) Eos # (Auto) Baso # (Auto) WBC Differential Differential Comment PT INR APTT Sodium Potassium Chloride Carbon Dioxide Anion Gap BUN Creatinine Estimated GFR POC Glucose Random Glucose Lactic Acid 1.6 Calcium Prot Corrected Calcium Magnesium Total Bilirubin AST ALT Alkaline Phosphatase Total Creatine Kinase 170 CK-MB (CK-2) 2.9 Troponin I 0.04 Total Protein Albumin Urine Color Yellow Urine Clarity Hazy H Urine pH 5.0 Ur Specific [place] 1.025 Urine Protein 30 H Urine Glucose (UA) Negative Urine Ketones Negative Urine Occult Blood Negative Urine Nitrate Negative Urine Bilirubin Negative Urine Urobilinogen 2.0 H Ur Leukocyte Esterase Negative Urine RBC 1 Ur Squamous Epith Cells <1 Uric Acid Crystals Rare H Urine Mucus Few H Micro UA Comment Culture not ind Ur Microscopic Review Not Reportable Urine Culture Comments Culture not ind 09/20/18 09/20/18 09/20/18 03:45 06:40 06:40 WBC 7.1 RBC 4.51 Hgb 13.4 Hct 39.8 MCV 88.3 MCH 29.6 MCHC 33.5 RDW 14.8 Plt Count 146 L MPV 8.5 Neut % (Auto) Lymph % (Auto) [place] % (Auto) Eos % (Auto) Baso % (Auto) Neut # (Auto) Lymph # (Auto) [place] # (Auto) Eos # (Auto) Baso # (Auto) WBC Differential Differential Comment PT INR APTT Sodium 141 Potassium 3.8 Chloride 112 H Carbon Dioxide 20.5 L Anion Gap 9 BUN 19 H Creatinine 1.10 Estimated GFR 69 L POC Glucose 98 Random Glucose 103 Lactic Acid Calcium 7.4 L* Prot Corrected Calcium 8.2 L Magnesium Total Bilirubin AST ALT Alkaline Phosphatase Total Creatine Kinase CK-MB (CK-2) Troponin I Total Protein 5.6 L D Albumin Urine Color Urine Clarity Urine pH Ur Specific [place] Urine Protein Urine Glucose (UA) Urine Ketones Urine Occult Blood Urine Nitrate Urine Bilirubin Urine Urobilinogen Ur Leukocyte Esterase Urine RBC Ur Squamous Epith Cells Uric Acid Crystals Urine Mucus Micro UA Comment Ur Microscopic Review Urine Culture Comments Microbiology 09/19/18 18:54 Nasal Wash Influenza Types A,B Antigen - Final Negative for FLU A and B antigen Infection due to influenza A or B cannot be ruled out since the antigen present in the sample may be below the detection limit of the test. - Imaging Impressions Abdomen/Pelvis CT 09/19/18 17:31 CONCLUSION: 1. Previous ventral hernia repair. Associated large, chronic and nonindurated appearing intraperitoneal fluid collection is without appreciable change but there is a new, small and indurated appearing subcutaneous fluid collection at the umbilicus. Just above the subcutaneous fluid collection is a new area of herniated fat. 2. Enlarged and fatty infiltrated liver, similar to before. 3. No acute abnormalities are seen within the abdominal or pelvic cavity. Patient has situs inversus. There is a moderate size hiatal hernia. Chest CTA 09/19/18 17:31 CONCLUSION: 1. No pulmonary embolus. 2. Very mild dependent atelectasis of both lungs. No pneumonia, effusion or pneumothorax. 3. Mild to moderate emphysema. 4. Coronary artery calcification. 5. Moderate size hiatal hernia. 6. Situs inversus. Chest X-Ray 09/19/18 17:31 CONCLUSION: 1. Situs inversus. 2. Mild cardiomegaly with no evidence of pulmonary edema. Assessment and Plan - Plan 58-year-old man with 1. New onset atrial fibrillation with rapid ventricular response Continue ACS ruled out per protocol with serial cardiac enzyme and EKGs Currently on Cardizem drip, switch to p.o. Cardizem Therapeutic Lovenox Echo pending Cardiology consulted, appreciate assistance 2. Abdominal wall cellulitis CT of the abdomen/pelvis reveals persistent seroma with new small subcutaneous fluid collection at the umbilicus General surgery consulted, appreciate assistance Continue vancomycin/Zosyn Blood cultures pending 3. Diabetes mellitus Sliding scale insulin Monitor blood glucose Check A1c 4. COPD Atrovent Supplemental oxygen as needed 5. AK I-resolving d/c IV fluid hydration Monitor renal function 6. History of situs inversus Transfer to [facility]
--- NOTE | 2018-09-20 12:12 | MB ---
cc: Roberto Tomas MD DATE: 09/20/2018 HISTORY OF PRESENT ILLNESS: Alexx is a very pleasant 38-year-old gentleman who smokes who presents with a chief complaint of abdominal pain. He was found to be in atrial fibrillation with rapid ventricular response. He also notes a new onset severe shortness of breath. Denies chest pain, fevers, chills, cough, GI or bleeding, PND, orthopnea, syncope, or dizziness. PAST MEDICAL HISTORY: Per history of present illness. He has a history of situs inversus, COPD, diabetes, colon cancer, status post chemotherapy, followed by Dr. Jorge Rose, status post ventral hernia repair by Dr. Lau a year ago. He also has a history of TIA. He has a history of gastrointestinal bleeding due to peptic ulcer disease approximately 2 years ago. SOCIAL HISTORY: He does smoke every day. Drinks alcohol 3-4 times a month. ALLERGIES: NONE. MEDICATIONS IN THE HOSPITAL: 1. Aspirin 325 daily. 2. Lovenox 100 mg subcutaneous every 12 hours. 3. Insulin. 4. Atrovent nebulizer. 5. Piperacillin/tazobactam/dextrose. 6. He did receive a bolus of IV Cardizem. PHYSICAL EXAMINATION: VITAL SIGNS: Pulse ranged between 90 and 106, currently on the monitor at 90 with a lot of artifact. It is irregular. Temperature 98.2, respiratory rate 16, blood pressure 124/90, saturations 96% on 2 liters nasal cannula. GENERAL: He is alert and oriented x3, in no acute distress. NECK: Supple. No JVD. No bruit. CARDIOVASCULAR: S1, S2. No murmurs, rubs, or gallops. LUNGS: Clear to auscultation bilaterally. ABDOMEN: Soft, nontender, nondistended with positive bowel sounds. EXTREMITIES: No extremity edema. LABORATORY DATA: CT of the abdomen and pelvis showed previous ventral hernia repair, associated large chronic and nonindurated appearing intraperitoneal fluid collection. He is without appreciable change, but there is a new small and indurated appearing subcutaneous fluid collection at the umbilicus. Just above the subcutaneous fluid collection is a new area of herniated fat, enlarged and fatty infiltrated liver similar to before. No acute abnormalities are seen with the abdominopelvic cavity. The patient has situs inversus. There is moderate-sized hiatal hernia. CT of the chest: No pulmonary embolus. Very mild dependent atelectasis of both lungs. No pneumonia, effusion, or pneumothorax. [id number] emphysema, coronary artery calcification, moderate-sized hiatal hernia, situs inversus. EKG: Atrial fibrillation at a rate of 118 beats per minute, slightly asymmetric T-wave inversions of 3-4 mm in amplitude in the III, V4, V5, V6. EKG changes and atrial fibrillation are new compared to previous EKG on 06/07/2017. Labs: White count 7.1, hemoglobin 13.4, hematocrit 39.8, platelet count 146. INR 1.0. Sodium 141, potassium 3.8, chloride 112, bicarbonate 20.5, BUN 19, creatinine 1.10, initially it was 1.65, glucose 150. DIAGNOSES: He has the following diagnoses: 1. Atrial fibrillation with rapid ventricular response. 2. Chronic obstructive pulmonary disease. 3. Sinus inversus. 4. Diabetes mellitus. 5. History of colon cancer. 6. History of peptic ulcer disease. 7. History of gastrointestinal bleeding. 8. Thrombocytopenia. 9. Acute renal failure. 10. Cellulitis of the abdominal wall. 11. Hypocalcemia. 12. Congestive heart failure. 13. New onset severe dyspnea. 14. Tobacco abuse. 15. History of transient ischemic attack. 16. Coronary artery disease. DISCUSSION: At this point in time, the patient's CHADS-VASc score is at least 4; therefore, Coumadin and/or novel oral anticoagulant agent is indicated. However, the patient has a history of GI bleeding in the last 2 years. He is uninsured. It does not appear that he has good followup. He is currently therapeutically anticoagulated with Lovenox, which is appropriate. I think it is reasonable to monitor him for several days just to assess for any possibility of GI bleeding. He already has some mild thrombocytopenia. We will need to follow his platelet count. I also recommend checking BNP and 2D echo to determine his LV function and assess the etiology of his new onset dyspnea. Regarding his coronary disease, again we will check a 2D echo. We will also check fasting lipids and guidelines. Continue telemetry monitoring. Roberto Tomas MD [facility]/ts/ben , 09:49 AM , 09:59 AM
[2018-09-20 12:37] LABS: Creatine Kinase 121 U/L (39-308); Troponin I 0.03 ng/mL (0.02-0.05)
[2018-09-20] MEDS: dilTIAZem 60 MG Tablet PO SCH ×3 (12:40→21:01)
[2018-09-20] MEDS: Morphine Inj 4 MG/ML Vial IV.PUSH PRN ×2 (12:40→22:30)
[2018-09-20 12:50] LABS: Creatine Kinase MB 2.3 ng/mL (0.5-3.6)
[2018-09-20] MEDS ORDERED: Vancomycin Inj 2,000 MG in Sodium Chlor 0.9% Inj 500 ML IV.SIG SCH (13:00)
[2018-09-20] MEDS ORDERED: Vancomycin Inj 1,250 MG in Sodium Chlor 0.9% Inj 250 ML IV.SIG SCH (13:00)
[2018-09-20] MEDS ORDERED: HYDROmorphone PF Inj 1 MG/ML Ampul IV.PUSH ONE (13:15)
[2018-09-20] MEDS: Vancomycin Inj 1,500 MG in Sodium Chlor 0.9% Inj 500 ML IV.SIG SCH (13:26)
--- NOTE | 2018-09-20 15:33 | ECHRPT ---
Indication: ATRIAL FIB/FLUTTER CONCLUSIONS This is a patient with Dextrocardia.normal left ventricular size. This is a Dextrocardia. Mildly dilated left ventricle. Wall thickness is normal. The left ventricular systolic function is moderately reduced with an estimated ejection fraction of 40%. Mild mitral valve regurgitation. There is trace tricuspid valve regurgitation. BP: / HR: Rhythm: Atrial fibrillation MEASUREMENTS (Male / Female) Normal Values Technical Quality:Very technically difficult study DOPPLER AV Peak Velocity 81.5 cm/s AV Peak Gradient 2.7 mmHg AV Mean Gradient 2.0 mmHg AV Velocity Time Integral 9.8 cm LVOT Peak Velocity 58.2 cm/s LVOT Peak Gradient 1.4 mmHg LVOT Velocity Time Integral 8.3 cm Mitral E Point Velocity 104.0 cm/s Mitral A Point Velocity 33.1 cm/s Mitral E to A Ratio 3.1 TR Peak Velocity 111.0 cm/s TR Peak Gradient 4.9 mmHg Right Atrial Pressure 10.0 mmHg Pulmonary Artery Systolic Pressu 14.9 mmHg Right Ventricular Systolic Press 14.9 mmHg FINDINGS LEFT VENTRICLE This is a patient with Dextrocardia.normal left ventricular size. Mildly dilated left ventricle. Wall thickness is normal. The left ventricular systolic function is moderately reduced with an estimated ejection fraction of 40%. RIGHT VENTRICLE Normal right ventricular size and systolic function. LEFT ATRIUM The left atrial size is normal. RIGHT ATRIUM The right atrial size is normal. MITRAL VALVE Mild mitral valve regurgitation. AORTIC VALVE Trileaflet aortic valve. No aortic valve stenosis or regurgitation. TRICUSPID VALVE There is trace tricuspid valve regurgitation. PULMONARY VALVE The pulmonary valve is not well visualized. PERICARDIUM No pericardial effusion. Soto Arora MD (Electronically Signed) Final Date:20 September 2018 15:32
--- NOTE | 2018-09-20 22:03 | MB ---
cc: Floyd Alvares MD,Samson BRINK DATE: 09/20/2018 REASON FOR CONSULTATION: Abdominal abscess, history of hernia repair. SOCK LINING EXAMINER: Samson Vallejo MD HISTORY OF PRESENT ILLNESS: The patient is a 58-year-old male with multiple medical issues who presents with increased abdominal pain. He states the pain has been going on with swelling for approximately 1 week. The patient with a history of an incisional hernia repair 1 year ago, relatively uneventful; however, the patient noted to have a previous wound infection, history of seroma and history of drainage. This was done with Dr. Lau. The patient was doing relatively well until 1 week ago when he had increased swelling and pain. He states the pain was 9/10, currently 8/10, somewhat relieved with IV pain medication. He states it is worse with movement, better when lying still. He says the pain is constant and sharp in nature. He came to the emergency department for further evaluation including a CT scan showing a large seroma under the mesh and cellulitis within the skin and superior to the mesh. Also noted is a recurrence of hernia at the inferior margin. The patient further denies fevers, chills, nausea, vomiting or change in bowel habits. PAST MEDICAL HISTORY: COPD, colon cancer, diabetes, hypertension, TIA, umbilical hernia. PAST SURGICAL HISTORY: Umbilical hernia repair. SOCIAL HISTORY: Positive smoking. Occasional ETOH. Denies IVDA. ALLERGIES: NO KNOWN DRUG ALLERGIES. MEDICATIONS: See EMR. FAMILY HISTORY: Denies diabetes or hypertension. REVIEW OF SYSTEMS: GENERAL: Denies fevers, chills. HEENT: Denies eye pain, ear pain. NECK: Denies swelling or pain. LUNGS: Denies cough or wheeze. HEART: Denies palpitations or chest pain. ABDOMEN: Complains of abdominal pain. Denies nausea or vomiting. GENITOURINARY: Denies dysuria or hematuria. ENDOCRINE: Denies polyuria or polydipsia. INTEGUMENT: Denies any masses or lesions. PHYSICAL EXAMINATION: GENERAL: The patient is in no acute distress. VITAL SIGNS: Temperature 99.5, pulse 99, respirations 20, blood pressure 135/86, saturation 94%. HEENT: Pupils are equal, round, reactive. NECK: Supple. Trachea midline. LUNGS: Clear to auscultation, bilateral expansion. HEART: S1, S2, regular. ABDOMEN: Soft, distended, positive tenderness to palpation. Midline surgical scar present. Palpable inferior hernia. EXTREMITIES: Warm and well perfused. NEUROLOGIC: GCS of 15. 5/5 motor in all extremities. PSYCHIATRIC: Appropriate mood, appropriate insight. LABORATORY AND DIAGNOSTIC DATA: WBC 7.1, hemoglobin 13.4, hematocrit 39.8, platelets 146. INR 1. Sodium 141, potassium 3.8, chloride 112, BUN 19, creatinine 1.1, calcium 8.2. CT reviewed by myself showing a large seroma fluid collection just deep to mesh on the anterior abdominal wall, evidence of cellulitis above mesh. When compared to CT in October, seroma looks relatively unchanged. ASSESSMENT: The patient is a 58-year-old male who presents with evidence of cellulitis, history of hernia repair, seroma, smoker, several medical issues, abdominal pain. PLAN: After a full workup, the patient with the above-noted issues. At this point, discussed with interventional radiology, Dr. Matos. Again noted that the seroma appears to be unchanged in size and chronic in nature. The patient does have overlying cellulitis, concern for wound infection. Discussed with the patient in detail. Currently, recommend IV antibiotics, pain control. The patient can have a diet. Discussed with the patient that we will attempt antibiotic treatment initially and if successful, then will continue to follow. However, the patient may warrant excision of mesh. Discussed with the patient that this would be a pretty significant undertaking given the current clinical situation and presentation. The patient understands and agrees. Again, discussed with IR, who stated seroma not likely beneficial for drainage and if drainage were to be embarked by IR, they would have to go through a significant amount of soft tissue and mesh in order to get to it, so we will again continue to follow. Thank you for the consultation. MD JOSE Cross/eric/ , 09:28 PM , 09:40 PM DAVID
--- NOTE | 2018-09-20 23:18 | ECG ---
Date Performed: 09/19/2018 Time Performed: 17:34:23 PTAGE: 58 years EKG: ATRIAL FIBRILLATION WITH RAPID VENTRICULAR RESPONSE MODERATE T-WAVE ABNORMALITY, CONSIDER A NTEROLATERAL ISCHEMIA ABNORMAL ECG NO PREVIOUS TRACING DOCTOR: Shar Ohara Interpretating Date/Time 09/20/2018 23:17:47
[2018-09-21] MEDS: Piperacil/Tazo 3.375 GM Premix 50 ML IV.SIG SCH ×4 (01:05→17:09)
[2018-09-21] MEDS: Vancomycin Inj 1,500 MG in Sodium Chlor 0.9% Inj 500 ML IV.SIG SCH ×2 (01:39→13:55)
[2018-09-21] MEDS: Morphine Inj 4 MG/ML Vial IV.PUSH PRN ×2 (02:35→06:40)
[2018-09-21] MEDS: Insulin NovoLOG Aspart Correctional Sugar Inj SQ SCH ×5 (02:52→22:35)
[2018-09-21] MEDS: dilTIAZem 60 MG Tablet PO SCH ×4 (08:06→20:34)
[2018-09-21] MEDS: Aspirin 325 MG Tablet PO SCH (08:07)
--- NOTE | 2018-09-21 10:20 | P.PN ---
Subjective Interval history: This is a pleasant 58 y/o Male with New onset of Atrial Fibrillation abdominal wall cellulitis and Hernia 09/21: Seen in her bedroom, cash posting specialist following, has CAD asymptomatic, to continue with Lovenox Aspirin 81 mg once authorized by labeling specialist, with diagnosis of Cardiomyopathy, CAD, Atrial fibrillation to continue Cardizem, EF 40%, on Coreg and Altace, he has also COPD, Obesity, Status post multiple hernia repair, History of Colon Cancer status post hemicolectomy status post Chemo, ID specialist following on Vancomycin and Zosyn, as per General Surgery thinking if not improving may need surgical intervention, Doctor Lau is his Primary General Surgeon doctor Sid to follow on Monday09/24/18. No nausea, vomit or diarrhea. Physical Exam Vital signs: Vital Signs 09/20/18 11:00 09/20/18 12:00 09/20/18 12:41 Temperature 98.2 F Pulse Rate 108 H 98 H Respiratory Rate 20 16 Blood Pressure 121/78 Pulse Oximetry 95 09/20/18 13:00 09/20/18 14:00 09/20/18 14:44 Temperature Pulse Rate 116 H 105 H 92 H Respiratory Rate Blood Pressure Pulse Oximetry 09/20/18 16:00 09/20/18 16:36 09/20/18 16:57 Temperature 98.1 F Pulse Rate 106 H Respiratory Rate 18 22 16 Blood Pressure 101/67 Pulse Oximetry 95 09/20/18 17:00 09/20/18 17:26 09/20/18 19:50 Temperature Pulse Rate 103 H 92 H Respiratory Rate Blood Pressure Pulse Oximetry 93 L 09/20/18 20:00 09/20/18 20:15 09/20/18 21:19 Temperature 98.0 F Pulse Rate 89 92 H Respiratory Rate 22 20 Blood Pressure 128/88 Pulse Oximetry 93 L 93 L 09/21/18 00:00 09/21/18 00:41 09/21/18 01:00 Temperature 97.9 F Pulse Rate 90 93 H 90 Respiratory Rate 28 H 20 Blood Pressure 125/98 H Pulse Oximetry 93 L 95 09/21/18 02:32 09/21/18 02:43 09/21/18 02:53 Temperature 98 F Pulse Rate 105 H 105 H Respiratory Rate 23 19 Blood Pressure 123/95 H Pulse Oximetry 93 L 09/21/18 04:00 09/21/18 05:31 09/21/18 06:48 Temperature Pulse Rate 89 Respiratory Rate 19 20 19 Blood Pressure Pulse Oximetry Intake & Output 09/20/18 09/21/18 09/21/18 18:59 06:59 18:59 Intake Total 3695 / 3695 1095 / 1095 Output Total 800 / 800 400 / 400 Balance 2895 / 2895 695 / 695 Weight 125.7 kg Intake: IV 2615 / 2615 615 / 615 NS Inj 1,000 ML @ 125 mls/hr IV 1999 / 1999 .CONT .Q8H [facility] Rx#:[id number] Zosyn 3.375 GM Premix 50 ML @ 100 / 100 100 / 100 100 mls/hr IV.SIG Q6H [facility] Rx#: [id number] Vancomycin Inj 1,500 MG In NS 515 / 515 515 / 515 Inj 500 ML @ 250 mls/hr IV.SIG Q12H [facility] Rx#:[id number] Oral 1080 / 1080 480 / 480 Output: Urine 800 / 800 400 / 400 Other: # Voids 2 Date of Last Bowel Movement 09/20/18 Narrative: Gen.: No acute distress Head: Normocephalic. Atraumatic. EENT: Pupils equal round and reactive to light. Nose without drainage. Airway intact. Throat without injection. Cardiovascular: Tachycardic. Irregularly irregular rhythm. No murmurs, rubs or gallops. Respiratory: Lungs clear to auscultation bilaterally. No wheezes or rhonchi. Abdomen: Soft, nontender, erythema and edema on periumbilical area, on Umbilical hernia area. and scars. Musculoskeletal: No gross deformities. No edema. Skin: Central abdominal erythema that is warm to the touch. No drainage noted. No areas of fluctuance. Neuro: Sensory and motor grossly intact. Cranial nerves II through XII grossly intact. Results - Labs CBC & Chem 7: 09/20/18 06:40 09/22/18 04:44 Laboratory Results - last 24 hr 09/20/18 09/20/18 09/20/18 11:42 16:19 20:10 POC Glucose 224 H 136 H Total Creatine Kinase 121 CK-MB (CK-2) 2.3 Troponin I 0.03 09/21/18 09/21/18 02:50 08:06 POC Glucose 135 H 111 H Total Creatine Kinase CK-MB (CK-2) Troponin I Microbiology 09/19/18 17:30 Blood - Peripheral Aerobic Blood Culture - Preliminary No growth in 1 day 09/19/18 17:30 Blood - Peripheral Anaerobic Blood Culture - Preliminary No growth in 1 day 09/19/18 17:38 Blood - Peripheral Aerobic Blood Culture - Preliminary No growth in 1 day 09/19/18 17:38 Blood - Peripheral Anaerobic Blood Culture - Preliminary No growth in 1 day - Imaging Abdomen/Pelvis CT 09/19/18 17:31 CONCLUSION: 1. Previous ventral hernia repair. Associated large, chronic and nonindurated appearing intraperitoneal fluid collection is without appreciable change but there is a new, small and indurated appearing subcutaneous fluid collection at the umbilicus. Just above the subcutaneous fluid collection is a new area of herniated fat. 2. Enlarged and fatty infiltrated liver, similar to before. 3. No acute abnormalities are seen within the abdominal or pelvic cavity. Patient has situs inversus. There is a moderate size hiatal hernia. Chest CTA 09/19/18 17:31 CONCLUSION: 1. No pulmonary embolus. 2. Very mild dependent atelectasis of both lungs. No pneumonia, effusion or pneumothorax. 3. Mild to moderate emphysema. 4. Coronary artery calcification. 5. Moderate size hiatal hernia. 6. Situs inversus. Chest X-Ray 09/19/18 17:31 CONCLUSION: 1. Situs inversus. 2. Mild cardiomegaly with no evidence of pulmonary edema. - Procedures None Assessment and Plan - Plan 58-year-old man with 1. New onset atrial fibrillation with rapid ventricular response/CAD/History of TIA/CHF CHADS2 VASC score 4, Anticoagulation indicated, cash posting specialist following has history of GI bleed anticoagulated with Lovenox. following Echocardiogram and BNP. Thrombocytopenia following Platelet count. 09/21: cash posting specialist following, has CAD asymptomatic, to continue with Lovenox Aspirin 81 mg once authorized by labeling specialist, with diagnosis of Cardiomyopathy, CAD, Atrial fibrillation to continue Cardizem, EF 40%, on Coreg and Altace. 2. Abdominal wall cellulitis/Persistent Seroma CT of the abdomen/pelvis reveals persistent seroma with new small subcutaneous fluid collection at the umbilicus 09/21: Status post multiple hernia repair, History of Colon Cancer status post hemicolectomy status post Chemo, ID specialist following on Vancomycin and Zosyn, as per General Surgery thinking if not improving may need surgical intervention, Doctor Lau is his Primary General Surgeon doctor Sid to follow on Monday09/24/18. 3. Diabetes mellitus Sliding scale insulin Monitor blood glucose Check A1c 4. COPD Atrovent Supplemental oxygen as needed 5. JOSE-resolving d/c IV fluid hydration Monitor renal function 6. History of situs inversus 7. Tobacco dependence strongly recommended to stop smoking. Transfer to [facility] Code Status: Full code. Discussed Condition With: Patient and Nurse Miss Stovall. Discharge Planning: Once cleared by Specialists.
[2018-09-21] MEDS: Enoxaparin Inj 100 MG/ML Syringe SQ SCH ×2 (10:32→21:46)
[2018-09-21] MEDS ORDERED: HYDROmorphone PF Inj 0.5 MG/0.5 ML Syringe IV.PUSH PRN (10:57)
--- NOTE | 2018-09-21 11:36 | P.PNGS ---
Subjective Interval history: Pain not well controlled Eating good Physical Exam Vital signs: Vital Signs 09/20/18 12:00 09/20/18 12:41 09/20/18 13:00 Temperature 98.2 F Pulse Rate 98 H 116 H Respiratory Rate 20 16 Blood Pressure 121/78 Pulse Oximetry 95 09/20/18 14:00 09/20/18 14:44 09/20/18 16:00 Temperature 98.1 F Pulse Rate 105 H 92 H 106 H Respiratory Rate 18 Blood Pressure 101/67 Pulse Oximetry 95 09/20/18 16:36 09/20/18 16:57 09/20/18 17:00 Temperature Pulse Rate 103 H Respiratory Rate 22 16 Blood Pressure Pulse Oximetry 09/20/18 17:26 09/20/18 19:50 09/20/18 20:00 Temperature 98.0 F Pulse Rate 92 H 89 Respiratory Rate 22 Blood Pressure 128/88 Pulse Oximetry 93 L 93 L 09/20/18 20:15 09/20/18 21:19 09/21/18 00:00 Temperature Pulse Rate 92 H 90 Respiratory Rate 20 Blood Pressure Pulse Oximetry 93 L 09/21/18 00:41 09/21/18 01:00 09/21/18 02:32 Temperature 97.9 F 98 F Pulse Rate 93 H 90 105 H Respiratory Rate 28 H 20 23 Blood Pressure 125/98 H 123/95 H Pulse Oximetry 93 L 95 93 L 09/21/18 02:43 09/21/18 02:53 09/21/18 04:00 Temperature Pulse Rate 105 H 89 Respiratory Rate 19 19 Blood Pressure Pulse Oximetry 09/21/18 05:31 09/21/18 06:48 09/21/18 08:00 Temperature Pulse Rate 100 H Respiratory Rate 20 19 Blood Pressure Pulse Oximetry 09/21/18 10:13 Temperature Pulse Rate Respiratory Rate Blood Pressure Pulse Oximetry 92 L Intake & Output 09/20/18 09/21/18 09/21/18 18:59 06:59 18:59 Intake Total 3695 / 3695 1095 / 1095 Output Total 800 / 800 400 / 400 Balance 2895 / 2895 695 / 695 Weight 125.7 kg Intake: IV 2615 / 2615 615 / 615 NS Inj 1,000 ML @ 125 mls/hr IV 1999 / 1999 .CONT .Q8H [facility] Rx#:[id number] Zosyn 3.375 GM Premix 50 ML @ 100 / 100 100 / 100 100 mls/hr IV.SIG Q6H [facility] Rx#: [id number] Vancomycin Inj 1,500 MG In NS 515 / 515 515 / 515 Inj 500 ML @ 250 mls/hr IV.SIG Q12H [facility] Rx#:[id number] Oral 1080 / 1080 480 / 480 Output: Urine 800 / 800 400 / 400 Other: # Voids 2 Date of Last Bowel Movement 09/20/18 Narrative: Alert and awake Abd: soft; distended; midline surgical scar---just inferior to umbilicus skin has erythema; tender to palpation Results - Labs 09/20/18 06:40 09/20/18 06:40 Laboratory Results - last 24 hr 09/20/18 09/20/18 09/20/18 11:42 16:19 20:10 POC Glucose 224 H 136 H Total Creatine Kinase 121 CK-MB (CK-2) 2.3 Troponin I 0.03 09/21/18 09/21/18 02:50 08:06 POC Glucose 135 H 111 H Total Creatine Kinase CK-MB (CK-2) Troponin I - Imaging Imaging: ITS Impressions Abdomen/Pelvis CT 09/19/18 17:31 CONCLUSION: 1. Previous ventral hernia repair. Associated large, chronic and nonindurated appearing intraperitoneal fluid collection is without appreciable change but there is a new, small and indurated appearing subcutaneous fluid collection at the umbilicus. Just above the subcutaneous fluid collection is a new area of herniated fat. 2. Enlarged and fatty infiltrated liver, similar to before. 3. No acute abnormalities are seen within the abdominal or pelvic cavity. Patient has situs inversus. There is a moderate size hiatal hernia. Chest CTA 09/19/18 17:31 CONCLUSION: 1. No pulmonary embolus. 2. Very mild dependent atelectasis of both lungs. No pneumonia, effusion or pneumothorax. 3. Mild to moderate emphysema. 4. Coronary artery calcification. 5. Moderate size hiatal hernia. 6. Situs inversus. Chest X-Ray 09/19/18 17:31 CONCLUSION: 1. Situs inversus. 2. Mild cardiomegaly with no evidence of pulmonary edema. Assessment and Plan - Assessment (1) Cellulitis of abdominal wall Code(s): L03.311 - Cellulitis of abdominal wall Status: Acute Plan: 58 year old male with abdominal cellulitis; prior hernia repair and mesh present -Continue antibiotics---Zosyn and Vancomycin -Adjusted pain medications -If the patient does not continue to improve with antibiotics may need to discuss surgical intervention with mesh removal -Will continue to follow daily; Dr. Lau to return Monday to see him - Plan I personally evaluated the patient in room 1425. He has not experienced any significant change since being on abx. The redness has slightly increased and his abdominal exam demonstrates some tenderness. He wants a chn age in hi pain meds. He wants to avoid another operation if possible. Plan: continue Vancomycin and Zosyn. He is at risk for needing operative debridement and drainage, and possible mesh removal. He has a recurrent hernia superior to the mesh as well. The exam, history, and the medical decision-making described in the above note were completed with the assistance of the mid-level provider. I reviewed and agree with the findings presented. I attest that I had a [id number] encounter with the patient on the same day, and personally performed and documented my assessment and findings in the medical record.
[2018-09-21] MEDS ORDERED: Pharmacy Ordered Lab Info OTHER ONE (12:45)
--- NOTE | 2018-09-21 13:17 | P.CONID ---
History of Present Illness Service: Infectious disease Consult date: 09/21/18 Requesting Physician: Theodore Shah Reason for Consult: Evaluate patient with abdominal wall cellulitis Primary Care Provider: No Primary Care Physician History of Present Illness: Patient seen and examined. Records reviewed. Patient is a 58-year-old male, presented to the hospital complaining of abdominal pain, swelling and redness. Patient has had multiple hernia repairs in the past. On reviewing his records it looks like he has had a chronic intraperitoneal fluid collection right where his hernia mesh is located. It had been aspirated in the past, and it looks like the last one was done in January 2018, and cultures came back negative. Patient stated he has had an episode of abdominal wall cellulitis, may be about 6 months ago, and he was given an oral antibiotics with resolution of the redness. The last abdominal surgery he has had was back in May of last year and at that time he was diagnosed to have a colon cancer and he underwent exploratory laparotomy, lysis of adhesions, right sided colectomy, and I believe hernia surgery. He has received chemotherapy, and the last time he had chemo was about 6 months ago. His current problems started about 5 days ago when he noted redness on his anterior abdominal wall. In the last 3 days, he had noted a focal area of swelling which apparently he has not had in the past. He has not had any fever chills or sweats. He has chronic nausea but no vomiting. Denies any diarrhea. Has not had any respiratory complaint or any urinary complaint. Patient has been admitted with a diagnosis of abdominal wall cellulitis. He had CT of the abdomen and pelvis which is showing a stable size of the intraperitoneal fluid collection that has been there and close to his hernia mesh, but there is a new superficial fluid collection that was also noted. His WBC is normal, and he has been afebrile. He is currently on vancomycin and Zosyn. Surgery is evaluating the patient. Infectious disease consultation has been requested to assist with evaluation and treatment of abdominal cellulitis, and possibly an infected fluid collection Review of Systems Constitutional: Denies chills, Denies fever(s), Denies lack of energy Eyes: Denies discharge, Denies dry eyes Ears, Nose, Mouth, and Throat: Denies difficulty swallowing, Denies nasal congestion, Denies nasal discharge, Denies sore throat Cardiovascular: Reports shortness of breath, Reports shortness of breath with activity, Denies chest pain Respiratory: Reports shortness of breath with activity, Denies chest congestion , Denies cough Gastrointestinal: Reports abdominal pain, Reports nausea, Denies difficulty swallowing, Denies loose stools, Denies pain with swallowing, Denies vomiting Genitourinary: Denies difficulty urinating, Denies painful urination Musculoskeletal: Denies joint pain, Denies joint swelling Skin/Breast: Denies rash, Denies wounds Neurologic: Denies headache(s) Psychiatric: Denies confusion [facility] - History History Provided By: Patient - Medical History Medical History: Medical History (Last Updated 09/21/18 @ 13:19 by Janae Graham MD) COPD (chronic obstructive pulmonary disease) Colon cancer Diabetes mellitus Diverticulosis HTN (hypertension) TIA (transient ischemic attack) Umbilical hernia - Surgical History Surgical History: Surgical History (Last Updated 09/19/18 @ 17:22 by Viridiana Farrar RN) History of hernia repair - Tobacco History Second Hand Smoke Exposure: No Tobacco Use In Past 30 Days: Yes Smoking Status: Current every day smoker Tobacco Type: Cigarettes - Alcohol History How Often Do You Have a Drink Containing Alcohol: 2 to 4 times a month - Substance Use History Substance History: No History of Abuse - Travel History Recent Travel in the [place] Within the Last 8 Weeks: No Recent Travel Out of the Country Within the Last 8 Weeks: No - Immunization History Tetanus Immunization: <5 Years Hx Influenza Vaccine This Season: No Medications and Allergies Active Medications: Active Medications Albuterol (Duoneb Neb (Prn)) 1 ampul NEB Q2HR NEB PRN PRN Reason: SHORTNESS OF BREATH Last Admin: 09/21/18 00:41 Dose: 1 ampul Aspirin (Aspirin) 325 mg PO DAILY [facility] Last Admin: 09/21/18 08:07 Dose: 325 mg Dextrose (D50w Vial) 50 ml IV.PUSH UNSCH PRN PRN Reason: PER HYPOGLYCEMIA PROTOCOL Diltiazem HCl (Cardizem) 60 mg PO QID [facility] Last Admin: 09/21/18 12:03 Dose: 60 mg Enoxaparin Sodium (Lovenox Inj) 100 mg SQ Q12H [facility] Last Admin: 09/21/18 10:32 Dose: 100 mg Glucagon (Glucagon Inj) 1 mg OTHER PRN PRN PRN Reason: for Hypoglycemia Protocol Hydromorphone HCl (Dilaudid Pf Inj) 1 mg IV.PUSH Q4H PRN PRN Reason: breakthough pain Piperacillin/Tazobactam/Dextrose (Zosyn 3.375 Gm Premix) 50 mls @ 100 mls/hr IV.SIG Q6H [facility] Last Admin: 09/21/18 11:49 Dose: 100 mls/hr Vancomycin HCl 1,500 mg/ (Sodium Chloride) 515 mls @ 250 mls/hr IV.SIG Q12H [facility] Last Infusion: 09/21/18 03:43 Dose: Infused Insulin Aspart (Novolog Insulin Correctional Sugar Inj) 0 unit SQ ACHS AND 3AM [facility]; Protocol Last Admin: 09/21/18 12:01 Dose: Not Given Ipratropium [place] (Atrovent Neb) 0.5 mg NEB Q4HR NEB PRN PRN Reason: sob/wheezing Last Admin: 09/20/18 03:40 Dose: 0.5 mg Naloxone HCl (Narcan Inj) 0.4 mg IV.PUSH UNSCH PRN PRN Reason: SEE LABEL COMMENTS Nicotine (Habitrol 21 Mg Patch.24 Hr) 1 patch T-DERMAL DAILY [facility] Last Admin: 09/21/18 08:08 Dose: Not Given Oxycodone/Acetaminophen (Percocet 10/325 Mg) 1 tab PO Q4H PRN PRN Reason: pain 6-10 Oxycodone/Acetaminophen (Percocet 5/325 Mg) 1 tab PO Q4H PRN PRN Reason: pain 1-5 Patch Removal (Remove Old Patch) 1 each T-DERMAL DAILY [facility] Last Admin: 09/21/18 08:10 Dose: Not Given Pharmacy Profile Note (Vancomycin Consult Pharmacy) 1 each OTHER UNSCH PRN PRN Reason: Pharmacy to dose Senna/Docusate Sodium (Raven-Colace) 1 tab PO BID PRN PRN Reason: CONSTIPATION Sodium Chloride (Ns Flush) 2 ml IV.FLUSH PRN PRN PRN Reason: FLUSH AFTER USING IV ACCESS Sodium Chloride (Ns Flush) 2 ml IV.FLUSH BID [facility] Last Admin: 09/21/18 08:07 Dose: 2 ml Allergies Allergy/AdvReac Type Severity Reaction Status Date / Time No Known Allergies Allergy Verified 09/19/18 17:25 Home Medications Medication Instructions Recorded Confirmed Type aspirin 325 mg PO DAILY 09/19/18 09/19/18 History Exam Vital signs: Vital Signs 09/20/18 14:00 09/20/18 14:44 09/20/18 16:00 Temperature 98.1 F Pulse Rate 105 H 92 H 106 H Respiratory Rate 18 Blood Pressure 101/67 Pulse Oximetry 95 09/20/18 16:36 09/20/18 16:57 09/20/18 17:00 Temperature Pulse Rate 103 H Respiratory Rate 22 16 Blood Pressure Pulse Oximetry 09/20/18 17:26 09/20/18 19:50 09/20/18 20:00 Temperature 98.0 F Pulse Rate 92 H 89 Respiratory Rate 22 Blood Pressure 128/88 Pulse Oximetry 93 L 93 L 09/20/18 20:15 09/20/18 21:19 09/21/18 00:00 Temperature Pulse Rate 92 H 90 Respiratory Rate 20 Blood Pressure Pulse Oximetry 93 L 09/21/18 00:41 09/21/18 01:00 09/21/18 02:32 Temperature 97.9 F 98 F Pulse Rate 93 H 90 105 H Respiratory Rate 28 H 20 23 Blood Pressure 125/98 H 123/95 H Pulse Oximetry 93 L 95 93 L 09/21/18 02:43 09/21/18 02:53 09/21/18 04:00 Temperature Pulse Rate 105 H 89 Respiratory Rate 19 19 Blood Pressure Pulse Oximetry 09/21/18 05:31 09/21/18 06:48 09/21/18 08:00 Temperature Pulse Rate 100 H Respiratory Rate 20 19 Blood Pressure Pulse Oximetry 09/21/18 10:13 Temperature Pulse Rate Respiratory Rate Blood Pressure Pulse Oximetry 92 L Intake & Output 09/20/18 09/21/18 09/21/18 18:59 06:59 18:59 Intake Total 3695 / 3695 1095 / 1095 Output Total 800 / 800 400 / 400 Balance 2895 / 2895 695 / 695 Weight 125.7 kg Intake: IV 2615 / 2615 615 / 615 NS Inj 1,000 ML @ 125 mls/hr IV 1999 / 1999 .CONT .Q8H [facility] Rx#:[id number] Zosyn 3.375 GM Premix 50 ML @ 100 / 100 100 / 100 100 mls/hr IV.SIG Q6H [facility] Rx#: [id number] Vancomycin Inj 1,500 MG In NS 515 / 515 515 / 515 Inj 500 ML @ 250 mls/hr IV.SIG Q12H [facility] Rx#:[id number] Oral 1080 / 1080 480 / 480 Output: Urine 800 / 800 400 / 400 Other: # Voids 2 Date of Last Bowel Movement 09/20/18 Narrative: Physical examination GENERAL: Patient is an obese, well-developed patient, awake and alert, not in respiratory distress. SKIN: Cool and dry. No generalized rash, no ecchymoses and no evidence of embolic lesions. HEAD: Atraumatic. Normocephalic. No temporal wasting, or tenderness. EYES: [place] conjunctiva. No petechia or hemorrhage. Pupils equal, round and reactive to light. Extraocular movements full and intact. No scleral icterus. No injection or drainage. EARS, NOSE AND THROAT: Nose without bleeding or purulent nasal discharge. No sinus tenderness. Mucous membranes pink and moist. Edentulous NECK: Trachea midline. Supple and not tender, no meningeal signs CARDIOVASCULAR: Regular rate and rhythm. No murmurs, rubs or gallops heard RESPIRATORY: Clear to auscultation. Breath sounds equal bilaterally. No rales , wheezing or rhonchi ABDOMEN: Soft, obese, with an area of erythema in upper midline, with a midline scar and there is a fluid filled area that is about 2-3 inches long along a portion of thet scar. Has tenderness along the erythematous area. The abdomen is distended. Bowel sounds present and normoactive. No guarding. No rebound. EXTREMITIES: No clubbing, cyanosis, or edema. No joint effusion, has good ROM. No calf tenderness. Well perfused and warm. NEUROLOGICAL: Awake and alert. Cranial nerves grossly intact. Motor grossly within normal limits. PSYCHIATRIC: Normal affect, calm and cooperative. LINE: No evidence of infection Results - Labs CBC & Chem 7: 09/20/18 06:40 09/20/18 06:40 Labs: Laboratory Results - last 24 hr 09/20/18 09/20/18 09/21/18 16:19 20:10 02:50 POC Glucose 224 H 136 H 135 H 09/21/18 09/21/18 08:06 11:57 POC Glucose 111 H 134 H - Imaging Impressions Abdomen/Pelvis CT 09/19/18 17:31 CONCLUSION: 1. Previous ventral hernia repair. Associated large, chronic and nonindurated appearing intraperitoneal fluid collection is without appreciable change but there is a new, small and indurated appearing subcutaneous fluid collection at the umbilicus. Just above the subcutaneous fluid collection is a new area of herniated fat. 2. Enlarged and fatty infiltrated liver, similar to before. 3. No acute abnormalities are seen within the abdominal or pelvic cavity. Patient has situs inversus. There is a moderate size hiatal hernia. Assessment and Plan - Plan Impression Abdominal wall cellulitis - has superficial fluid collection, ?infected Chronic fluid collection intraperitoneal close to his hernia mesh S/P multiple hernia repair Hx colon CA S/P R hemicolectomy, S/P chemo COPD Obesity Recommendation Continue IV Vanco Continue Zosyn Spoke with radiology - will ask them to do US guided fluid drainage of superficial fluid collection and send for G/S and C/S Surgery following patient as well - determining what intervention to do for his chronic fluid collection where he has the mesh Follow C/S Monitor progress I will follow along with you Thank you for ths consultation Explained plan to the patient D/W RN Relayed plan to Elizabeth CHOI (Surgery)
[2018-09-21] MEDS: HYDROmorphone PF Inj 1 MG/ML Ampul IV.PUSH PRN ×3 (13:30→21:46)
[2018-09-21] MEDS: oxyCODONE/Acetaminophen 10/325 Tablet PO PRN ×2 (15:08→20:33)
--- NOTE | 2018-09-21 17:07 | P.PNCA ---
Subjective Interval history: alert in nad Medications and Allergies Active Medications: Active Medications Albuterol (Duoneb Neb (Prn)) 1 ampul NEB Q2HR NEB PRN PRN Reason: SHORTNESS OF BREATH Last Admin: 09/21/18 00:41 Dose: 1 ampul Aspirin (Aspirin) 325 mg PO DAILY [facility] Last Admin: 09/21/18 08:07 Dose: 325 mg Carvedilol (Coreg) 12.5 mg PO BID [facility] Dextrose (D50w Vial) 50 ml IV.PUSH UNSCH PRN PRN Reason: PER HYPOGLYCEMIA PROTOCOL Diltiazem HCl (Cardizem) 60 mg PO QID [facility] Last Admin: 09/21/18 12:03 Dose: 60 mg Enoxaparin Sodium (Lovenox Inj) 100 mg SQ Q12H [facility] Last Admin: 09/21/18 10:32 Dose: 100 mg Glucagon (Glucagon Inj) 1 mg OTHER PRN PRN PRN Reason: for Hypoglycemia Protocol Hydromorphone HCl (Dilaudid Pf Inj) 1 mg IV.PUSH Q4H PRN PRN Reason: BREAKTHROUGH PAIN Last Admin: 09/21/18 13:30 Dose: 1 mg Piperacillin/Tazobactam/Dextrose (Zosyn 3.375 Gm Premix) 50 mls @ 100 mls/hr IV.SIG Q6H [facility] Last Infusion: 09/21/18 13:14 Dose: Infused Vancomycin HCl 1,500 mg/ (Sodium Chloride) 515 mls @ 250 mls/hr IV.SIG Q12H [facility] Last Admin: 09/21/18 13:55 Dose: 250 mls/hr Insulin Aspart (Novolog Insulin Correctional Sugar Inj) 0 unit SQ ACHS AND 3AM [facility]; Protocol Last Admin: 09/21/18 12:01 Dose: Not Given Ipratropium [place] (Atrovent Neb) 0.5 mg NEB Q4HR NEB PRN PRN Reason: sob/wheezing Last Admin: 09/20/18 03:40 Dose: 0.5 mg Miscellaneous Information ([facility]dered Lab Info) 0 each OTHER ONCE ONE Stop: 09/22/18 12:46 Naloxone HCl (Narcan Inj) 0.4 mg IV.PUSH UNSCH PRN PRN Reason: SEE LABEL COMMENTS Nicotine (Habitrol 21 Mg Patch.24 Hr) 1 patch T-DERMAL DAILY [facility] Last Admin: 09/21/18 08:08 Dose: Not Given Oxycodone/Acetaminophen (Percocet 10/325 Mg) 1 tab PO Q4H PRN PRN Reason: pain 6-10 Last Admin: 09/21/18 15:08 Dose: 1 tab Oxycodone/Acetaminophen (Percocet 5/325 Mg) 1 tab PO Q4H PRN PRN Reason: pain 1-5 Patch Removal (Remove Old Patch) 1 each T-DERMAL DAILY [facility] Last Admin: 09/21/18 08:10 Dose: Not Given Pharmacy Profile Note (Vancomycin Consult Pharmacy) 1 each OTHER UNSCH PRN PRN Reason: Pharmacy to dose Ramipril (Altace) 2.5 mg PO DAILY [facility] Senna/Docusate Sodium ([place]aven-Colace) 1 tab PO BID PRN PRN Reason: CONSTIPATION Sodium Chloride (Ns Flush) 2 ml IV.FLUSH PRN PRN PRN Reason: FLUSH AFTER USING IV ACCESS Sodium Chloride (Ns Flush) 2 ml IV.FLUSH BID [facility] Last Admin: 09/21/18 08:07 Dose: 2 ml Allergies Allergy/AdvReac Type Severity Reaction Status Date / Time No Known Allergies Allergy Verified 09/19/18 17:25 Home Medications Medication Instructions Recorded Confirmed Type aspirin 325 mg PO DAILY 09/19/18 09/19/18 History Physical Exam Vital signs: Vital Signs 09/20/18 17:26 09/20/18 19:50 09/20/18 20:00 Temperature 98.0 F Pulse Rate 92 H 89 Respiratory Rate 22 Blood Pressure 128/88 Pulse Oximetry 93 L 93 L 09/20/18 20:15 09/20/18 21:19 09/21/18 00:00 Temperature Pulse Rate 92 H 90 Respiratory Rate 20 Blood Pressure Pulse Oximetry 93 L 09/21/18 00:41 09/21/18 01:00 09/21/18 02:32 Temperature 97.9 F 98 F Pulse Rate 93 H 90 105 H Respiratory Rate 28 H 20 23 Blood Pressure 125/98 H 123/95 H Pulse Oximetry 93 L 95 93 L 09/21/18 02:43 09/21/18 02:53 09/21/18 04:00 Temperature Pulse Rate 105 H 89 Respiratory Rate 19 19 Blood Pressure Pulse Oximetry 09/21/18 05:31 09/21/18 06:48 09/21/18 08:00 Temperature Pulse Rate 100 H Respiratory Rate 20 19 Blood Pressure Pulse Oximetry 09/21/18 10:13 Temperature Pulse Rate Respiratory Rate Blood Pressure Pulse Oximetry 92 L Intake & Output 09/20/18 09/21/18 09/21/18 18:59 06:59 18:59 Intake Total 3695 / 3695 1095 / 1095 50 / 50 Output Total 800 / 800 400 / 400 Balance 2895 / 2895 695 / 695 50 / 50 Weight 125.7 kg Intake: IV 2615 / 2615 615 / 615 50 / 50 NS Inj 1,000 ML @ 125 mls/hr IV 1999 / 1999 .CONT .Q8H [facility] Rx#:[id number] Zosyn 3.375 GM Premix 50 ML @ 100 / 100 100 / 100 50 / 50 100 mls/hr IV.SIG Q6H [facility] Rx#: [id number] Vancomycin Inj 1,500 MG In NS 515 / 515 515 / 515 Inj 500 ML @ 250 mls/hr IV.SIG Q12H [facility] Rx#:[id number] Oral 1080 / 1080 480 / 480 Output: Urine 800 / 800 400 / 400 Other: # Voids 2 Date of Last Bowel Movement 09/20/18 - Constitutional no acute distress - Routine HEENT Exam Head: Present: normocephalic - Routine Neck Exam Present: supple - Routine Respiratory Exam Present: CTA bilaterally - Routine Cardiovascular Exam Present: S1, S2 - Routine Abdominal Exam Present: soft - Routine Extremities Exam Comments: no noelle Results 09/20/18 06:40 09/20/18 06:40 Cardiac Enzymes 09/19/18 09/19/18 09/20/18 Range/Units 17:38 17:38 11:42 AST 30 (15-37) U/L CK-MB (CK-2) 2.9 2.3 (0.5-3.6) ng/mL Troponin I 0.04 0.03 (0.02-0.05) ng/mL Coagulation 09/19/18 Range/Units 17:38 PT 10.1 (9.8-11.6) sec APTT 25.6 (23.4-31.7) sec CBC 09/19/18 09/20/18 Range/Units 17:38 06:40 WBC 9.7 7.1 (4.0-11.0) th/mm3 RBC 4.99 4.51 (4.50-5.90) mil/mm3 Hgb 15.2 13.4 (13.0-17.0) gm/dL Hct 43.5 39.8 (39.0-51.0) % Plt Count 197 146 L (150-450) th/mm3 Neut # (Auto) 7.3 (1.8-7.7) th/mm3 Lymph # (Auto) 1.6 (1.0-4.8) th/mm3 [place] # (Auto) 0.6 (0.0-0.9) th/mm3 Eos # (Auto) 0.1 (0.0-0.4) th/mm3 Baso # (Auto) 0.1 (0.0-0.2) th/mm3 Comprehensive Metabolic Panel 09/19/18 09/20/18 Range/Units 17:38 06:40 Sodium 141 141 (136-145) meq/L Potassium 4.0 3.8 (3.5-5.1) meq/L Chloride 108 H 112 H (98-107) meq/L Carbon Dioxide 25.4 20.5 L (21.0-32.0) meq/L BUN 26 H 19 H (7-18) mg/dL Creatinine 1.65 H 1.10 (0.60-1.30) mg/dL Calcium 8.1 L 7.4 L* (8.5-10.1) mg/dL AST 30 (15-37) U/L ALT 38 (12-78) U/L Alkaline Phosphatase 80 (45-117) U/L Total Protein 6.7 5.6 L D (6.4-8.2) g/dL Albumin 3.5 (3.4-5.0) g/dL Intake and Output 09/21/18 09/21/18 09/21/18 06:59 14:59 22:59 Intake Total 1095 / 1095 50 / 50 Output Total 400 / 400 Balance 695 / 695 50 / 50 Intake: IV 615 / 615 50 / 50 Zosyn 3.375 GM Premix 50 ML @ 100 / 100 50 / 50 100 mls/hr IV.SIG Q6H [facility] Rx#: [id number] Vancomycin Inj 1,500 MG In NS 515 / 515 Inj 500 ML @ 250 mls/hr IV.SIG Q12H [facility] Rx#:[id number] Oral 480 / 480 Output: Urine 400 / 400 Other: # Voids 2 Date of Last Bowel Movement 09/20/18 Weight 125.7 kg - Imaging and Cardiology Imaging: Impressions Abdomen/Pelvis CT 09/19/18 17:31 CONCLUSION: 1. Previous ventral hernia repair. Associated large, chronic and nonindurated appearing intraperitoneal fluid collection is without appreciable change but there is a new, small and indurated appearing subcutaneous fluid collection at the umbilicus. Just above the subcutaneous fluid collection is a new area of herniated fat. 2. Enlarged and fatty infiltrated liver, similar to before. 3. No acute abnormalities are seen within the abdominal or pelvic cavity. Patient has situs inversus. There is a moderate size hiatal hernia. Chest CTA 09/19/18 17:31 CONCLUSION: 1. No pulmonary embolus. 2. Very mild dependent atelectasis of both lungs. No pneumonia, effusion or pneumothorax. 3. Mild to moderate emphysema. 4. Coronary artery calcification. 5. Moderate size hiatal hernia. 6. Situs inversus. Chest X-Ray 09/19/18 17:31 CONCLUSION: 1. Situs inversus. 2. Mild cardiomegaly with no evidence of pulmonary edema. Assessment and Plan - Assessment (1) Cardiomyopathy Code(s): I42.9 - Cardiomyopathy, unspecified Status: Acute (2) Tobacco abuse Code(s): Z72.0 - Tobacco use Status: Acute (3) CAD (coronary artery disease) Code(s): I25.10 - Atherosclerotic heart disease of [place] coronary artery without angina pectoris Status: Acute (4) Cellulitis of abdominal wall Code(s): L03.311 - Cellulitis of abdominal wall Status: Acute (5) Atrial fibrillation with RVR Code(s): I48.91 - Unspecified atrial fibrillation Status: Acute (6) COPD (chronic obstructive pulmonary disease) Code(s): J44.9 - Chronic obstructive pulmonary disease, unspecified Status: Acute - Plan 1.) CAD - assymptomatic, check fasting lipids, lfts, on lovenox, start aspirin 81 mg qd if/when surgery is not indicated 2.) Cardiomyopathy - ef=40%, start coreg and altace 3.) Afib rvr - rate controlled on cardizem, h/o gid due to pud requiring transfusion in 2016, uncertain f/u due to lack of insurance; on lovenox, chadsvasc score =4, will consider noac or coumadin if no bleeding on lovenox and patient has f/u with pcp 4.) Patient strongly advised to stop smoking
--- NOTE | 2018-09-21 19:09 | US ---
EXAM DATE: 09/21/2018 4:18 PM EST AGE/SEX: 58 years / Male INDICATIONS: History of abdominal mesh repair with intra-abdominal cellulitis and focal periumbilica l fluid collection. There is also stable fluid collection posterior to the mesh. Ultrasound-guided as piration of the periumbilical fluid collection has been requested. CLINICAL DATA: This is the patient's sequela encounter. Patient reports that signs and symptoms have been present for 3 days and indicates a pain score of 4/10. MEDICAL/SURGICAL HISTORY: . Colon cancer. COPD. diabetes. Diverticulosis. HTN. TIA. Umbilic al hernia. . Hernia repair. Partial colectomy. COMPARISON: No prior exams available for comparison. FLUID: Total volume of 2 cc of cloudy pink fluid was removed. Post procedure scanning reveals no hematoma or other complication. . . TECHNIQUE: Ultrasound guidance for needle aspiration. Aspiration. The risks, benefits and alternatives to the procedure were explained and verbal and written consent w as obtained. The site was prepped in sterile fashion. Full sterile technique was used, including ca p, mask, sterile gloves and gown and a large sterile sheet. Hand hygiene and 2% chlorhexidine and/or betadine/alcohol prep was utilized per protocol for cutaneous antisepsis. The skin and subcutaneous tissues were infiltrated with local anesthetic solution. Sterile gel and sterile probe cover were u tilized for ultrasound guidance. Ultrasound evaluation of the periumbilical collection demonstrates a predominantly heterogeneously is oechoic collection with small pockets of fluid. An 18-gauge needle was advanced under direct ultrasou nd guidance into the small pockets of fluid within the larger collection and approximately 2 cc of pu rulent appearing fluid was removed. Larger collection cannot be aspirated. CONCLUSION: 1. Uncomplicated ultrasound-guided aspiration of superficial subcutaneous periumbilical fluid collec tion, as above. Electronically signed by: Jacinto Matos MD 09/21/2018 7:08 PM EST
[2018-09-21] MEDS: Carvedilol 12.5 MG Tablet PO SCH (20:34)
[2018-09-22] MEDS ORDERED: Pharmacy Ordered Lab Info OTHER ONE ×2 (00:45→12:45)
[2018-09-22] MEDS: oxyCODONE/Acetaminophen 10/325 Tablet PO PRN ×5 (00:57→21:29)
[2018-09-22] MEDS: Vancomycin Inj 1,500 MG in Sodium Chlor 0.9% Inj 500 ML IV.SIG SCH ×2 (00:58→13:06)
[2018-09-22] MEDS: Piperacil/Tazo 3.375 GM Premix 50 ML IV.SIG SCH ×5 (00:58→23:14)
[2018-09-22] MEDS: HYDROmorphone PF Inj 1 MG/ML Ampul IV.PUSH PRN ×6 (01:59→23:13)
[2018-09-22] MEDS: Insulin NovoLOG Aspart Correctional Sugar Inj SQ SCH ×5 (05:40→21:30)
[2018-09-22 06:41] LABS: Calcium 7.8 mg/dL (8.5-10.1); Carbon Dioxide 25.1 meq/L (21.0-32.0); Magnesium 2.2 mg/dL (1.5-2.5)
[2018-09-22 06:44] LABS: Chol/HDL Ratio 3.12 Ratio; HDL Cholesterol 37.8 mg/dL (40.0-60.0)
[2018-09-22] MEDS: Ramipril 2.5 MG Capsule PO SCH (10:16)
[2018-09-22] MEDS: dilTIAZem 60 MG Tablet PO SCH ×4 (10:17→21:29)
[2018-09-22] MEDS: Carvedilol 12.5 MG Tablet PO SCH ×2 (10:17→21:29)
[2018-09-22] MEDS: Aspirin 325 MG Tablet PO SCH (10:17)
[2018-09-22] MEDS: Enoxaparin Inj 100 MG/ML Syringe SQ SCH ×2 (10:18→23:14)
[2018-09-22] MEDS ORDERED: Lidocaine PF 1% Inj 5 ML Vial ONE (16:27)
--- NOTE | 2018-09-22 16:45 | P.PN ---
Subjective Interval history: This is a pleasant 58 y/o Male with New onset of Atrial Fibrillation abdominal wall cellulitis and Hernia 09/21: Seen in her bedroom, applications support specialist following, has CAD asymptomatic, to continue with Lovenox Aspirin 81 mg once authorized by student records specialist, with diagnosis of Cardiomyopathy, CAD, Atrial fibrillation to continue Cardizem, EF 40%, on Coreg and Altace, he has also COPD, Obesity, Status post multiple hernia repair, History of Colon Cancer status post hemicolectomy status post Chemo, ID specialist following on Vancomycin and Zosyn, as per General Surgery thinking if not improving may need surgical intervention, Doctor Lau is his Primary General Surgeon doctor Sid to follow on Monday09/24/18. 09/22: Stable in his bedroom, walking in the aisle, no nausea, vomit or diarrhea. Physical Exam Vital signs: Vital Signs 09/21/18 20:00 09/21/18 22:19 09/22/18 00:00 Temperature 98 F 97.8 F Pulse Rate 97 H 92 H Respiratory Rate 22 18 Blood Pressure 152/98 H 133/77 Pulse Oximetry 93 L 93 L 90 L 09/22/18 04:00 09/22/18 07:00 09/22/18 08:00 Temperature 98.1 F 97.3 F L Pulse Rate 92 H 91 H 101 H Respiratory Rate 24 20 17 Blood Pressure 114/79 149/105 H Pulse Oximetry 90 L 93 L 09/22/18 11:00 09/22/18 12:00 09/22/18 12:40 Temperature 98.7 F Pulse Rate 98 H Respiratory Rate 20 17 18 Blood Pressure 118/59 L Pulse Oximetry 96 09/22/18 15:20 Temperature Pulse Rate Respiratory Rate 8 L Blood Pressure Pulse Oximetry Intake & Output 09/21/18 09/22/18 09/22/18 18:59 06:59 18:59 Intake Total 1455 / 1455 1920 / 1920 615 / 615 Output Total 1050 / 1050 1100 / 1100 200 / 200 Balance 405 / 405 820 / 820 415 / 415 Weight 122.6 kg Intake: IV 615 / 615 575 / 575 615 / 615 Zosyn 3.375 GM Premix 50 ML @ 100 / 100 50 / 50 100 / 100 100 mls/hr IV.SIG Q6H [facility] Rx#: [id number] Vancomycin Inj 1,500 MG In NS 515 / 515 525 / 525 515 / 515 Inj 500 ML @ 250 mls/hr IV.SIG Q12H [facility] Rx#:[id number] Oral 840 / 840 1345 / 1345 Output: Urine 1050 / 1050 1100 / 1100 200 / 200 Other: Date of Last Bowel Movement 09/20/18 09/21/18 # Bowel Movements 1 Narrative: Gen.: No acute distress Head: Normocephalic. Atraumatic. EENT: Pupils equal round and reactive to light. Nose without drainage. Airway intact. Throat without injection. Cardiovascular: Tachycardic. Irregularly irregular rhythm. No murmurs, rubs or gallops. Respiratory: Lungs clear to auscultation bilaterally. No wheezes or rhonchi. Abdomen: Soft, nontender, erythema and edema on periumbilical area, on Umbilical hernia area. and scars. Musculoskeletal: No gross deformities. No edema. Skin: Central abdominal erythema that is warm to the touch. No drainage noted. No areas of fluctuance. Neuro: Sensory and motor grossly intact. Cranial nerves II through XII grossly intact. Results - Labs CBC & Chem 7: 09/20/18 06:40 09/22/18 04:44 Laboratory Results - last 24 hr 09/21/18 09/21/18 09/21/18 17:07 18:55 21:54 Sodium Potassium Chloride Carbon Dioxide Anion Gap BUN Creatinine Estimated GFR POC Glucose 112 H 133 H Random Glucose Calcium Magnesium B-Natriuretic Peptide 440 H Triglycerides Cholesterol LDL Cholesterol, Calc HDL Cholesterol Cholesterol/HDL Ratio Vancomycin Trough 09/22/18 09/22/18 09/22/18 04:44 04:44 05:36 Sodium 139 Potassium 4.0 Chloride 107 Carbon Dioxide 25.1 Anion Gap 7 BUN 17 Creatinine 1.02 Estimated GFR 75 L POC Glucose 110 Random Glucose 109 H Calcium 7.8 L Magnesium 2.2 B-Natriuretic Peptide 473 H Triglycerides 88 Cholesterol 118 L LDL Cholesterol, Calc 63 HDL Cholesterol 37.8 L Cholesterol/HDL Ratio 3.12 Vancomycin Trough 09/22/18 09/22/18 09/22/18 08:08 12:14 12:45 Sodium Potassium Chloride Carbon Dioxide Anion Gap BUN Creatinine Estimated GFR POC Glucose 105 114 H Random Glucose Calcium Magnesium B-Natriuretic Peptide Triglycerides Cholesterol LDL Cholesterol, Calc HDL Cholesterol Cholesterol/HDL Ratio Vancomycin Trough 10.3 H Microbiology 09/19/18 17:30 Blood - Peripheral Aerobic Blood Culture - Preliminary No growth in 3 days 09/19/18 17:30 Blood - Peripheral Anaerobic Blood Culture - Preliminary No growth in 3 days 09/19/18 17:38 Blood - Peripheral Aerobic Blood Culture - Preliminary No growth in 3 days 09/19/18 17:38 Blood - Peripheral Anaerobic Blood Culture - Preliminary No growth in 3 days 09/21/18 15:30 Fluid - Other Gram Stain - Final - Imaging Impressions Needle Aspiration US 09/21/18 00:00 CONCLUSION: 1. Uncomplicated ultrasound-guided aspiration of superficial subcutaneous periumbilical fluid collection, as above. - Procedures None Assessment and Plan - Plan 58-year-old man with 1. New onset atrial fibrillation with rapid ventricular response/CAD/History of TIA/CHF CHADS2 VASC score 4, Anticoagulation indicated, applications support specialist following has history of GI bleed anticoagulated with Lovenox. following Echocardiogram and BNP. Thrombocytopenia following Platelet count. 09/21: applications support specialist following, has CAD asymptomatic, to continue with Lovenox Aspirin 81 mg once authorized by student records specialist, with diagnosis of Cardiomyopathy, CAD, Atrial fibrillation to continue Cardizem, EF 40%, on Coreg and Altace. 2. Abdominal wall cellulitis/Persistent Seroma CT of the abdomen/pelvis reveals persistent seroma with new small subcutaneous fluid collection at the umbilicus 09/21: Status post multiple hernia repair, History of Colon Cancer status post hemicolectomy status post Chemo, ID specialist following on Vancomycin and Zosyn, as per General Surgery thinking if not improving may need surgical intervention, Doctor Lau is his Primary General Surgeon doctor Lau to follow on Monday09/24/18. 3. Diabetes mellitus Sliding scale insulin Monitor blood glucose Check A1c 4. COPD non exacerbated. Atrovent Supplemental oxygen as needed 5. Tobacco dependence strongly recommended to stop smoking. 6. History of situs inversus Transfer to [facility] Code Status: Full Code Discussed Condition With: Patient and Nurse Miss Melgoza Discharge Planning: Once cleared by Specialists.
[2018-09-22] MEDS: Spironolactone 25 MG Tablet PO SCH (17:06)
--- NOTE | 2018-09-22 20:23 | P.PN ---
Subjective Interval history: Patient states it is still red Physical Exam Vital signs: Vital Signs 09/21/18 22:19 09/22/18 00:00 09/22/18 04:00 Temperature 97.8 F Pulse Rate 92 H 92 H Respiratory Rate 18 24 Blood Pressure 133/77 Pulse Oximetry 93 L 90 L 09/22/18 07:00 09/22/18 08:00 09/22/18 11:00 Temperature 98.1 F 97.3 F L Pulse Rate 91 H 101 H Respiratory Rate 20 17 20 Blood Pressure 114/79 149/105 H Pulse Oximetry 90 L 93 L 09/22/18 12:00 09/22/18 12:40 09/22/18 15:20 Temperature 98.7 F Pulse Rate 98 H Respiratory Rate 17 18 8 L Blood Pressure 118/59 L Pulse Oximetry 96 09/22/18 16:00 09/22/18 17:40 Temperature 98.6 F Pulse Rate 63 Respiratory Rate 16 18 Blood Pressure 98/49 L Pulse Oximetry 95 Intake & Output 09/22/18 09/22/18 09/23/18 06:59 18:59 06:59 Intake Total 1920 / 1920 1145 / 1145 Output Total 1100 / 1100 200 / 200 Balance 820 / 820 945 / 945 Weight 122.6 kg Intake: IV 575 / 575 665 / 665 Zosyn 3.375 GM Premix 50 ML @ 50 / 50 150 / 150 100 mls/hr IV.SIG Q6H [facility] Rx#: [id number] Vancomycin Inj 1,500 MG In NS 525 / 525 515 / 515 Inj 500 ML @ 250 mls/hr IV.SIG Q12H [facility] Rx#:[id number] Oral 1345 / 1345 480 / 480 Output: Urine 1100 / 1100 200 / 200 Other: # Voids 3 Date of Last Bowel Movement 09/20/18 09/21/18 - Routine Abdominal Exam Present: soft, wound (Area outlined is shrinking, especially on the right side) Results - Labs CBC & Chem 7: 09/20/18 06:40 09/22/18 04:44 Laboratory Results - last 24 hr 09/21/18 09/21/18 09/22/18 18:55 21:54 04:44 Sodium 139 Potassium 4.0 Chloride 107 Carbon Dioxide 25.1 Anion Gap 7 BUN 17 Creatinine 1.02 Estimated GFR 75 L POC Glucose 133 H Random Glucose 109 H Calcium 7.8 L Magnesium 2.2 B-Natriuretic Peptide 440 H Triglycerides 88 Cholesterol 118 L LDL Cholesterol, Calc 63 HDL Cholesterol 37.8 L Cholesterol/HDL Ratio 3.12 Vancomycin Trough 09/22/18 09/22/18 09/22/18 04:44 05:36 08:08 Sodium Potassium Chloride Carbon Dioxide Anion Gap BUN Creatinine Estimated GFR POC Glucose 110 105 Random Glucose Calcium Magnesium B-Natriuretic Peptide 473 H Triglycerides Cholesterol LDL Cholesterol, Calc HDL Cholesterol Cholesterol/HDL Ratio Vancomycin Trough 09/22/18 09/22/18 09/22/18 12:14 12:45 17:09 Sodium Potassium Chloride Carbon Dioxide Anion Gap BUN Creatinine Estimated GFR POC Glucose 114 H 99 Random Glucose Calcium Magnesium B-Natriuretic Peptide Triglycerides Cholesterol LDL Cholesterol, Calc HDL Cholesterol Cholesterol/HDL Ratio Vancomycin Trough 10.3 H Microbiology 09/19/18 17:30 Blood - Peripheral Aerobic Blood Culture - Preliminary No growth in 3 days 09/19/18 17:30 Blood - Peripheral Anaerobic Blood Culture - Preliminary No growth in 3 days 09/19/18 17:38 Blood - Peripheral Aerobic Blood Culture - Preliminary No growth in 3 days 09/19/18 17:38 Blood - Peripheral Anaerobic Blood Culture - Preliminary No growth in 3 days 09/21/18 15:30 Fluid - Other Gram Stain - Final - Procedures None Assessment and Plan - Assessment (1) Cellulitis of abdominal wall Code(s): L03.311 - Cellulitis of abdominal wall Status: Acute Plan: Continue antibiotics - Attending Attestation I attest that I had a [id number] encounter with the patient on the same day, and personally performed and documented my assessment and findings in the medical record. The following services were provided during this hospital visit: Chart data review, vital sign assessments/reviewing monitor data Review of consultation notes if present Medication orders/review and/or management Ordering and/or reviewing lab tests Ordering and/or interpreting/reviewing x-rays and/or diagnostic studies Care of the patient and discussion of the patient with the care team Documentation time To help prompt me to consider important information that might be impacting today's encounter and assessment, Information from prior notes written by myself or my colleagues may have been "brought forward/copy and pasted" into today's note.
[2018-09-23] MEDS: Vancomycin Inj 1,500 MG in Sodium Chlor 0.9% Inj 500 ML IV.SIG SCH ×2 (01:44→15:41)
[2018-09-23] MEDS: oxyCODONE/Acetaminophen 10/325 Tablet PO PRN ×4 (02:50→21:18)
[2018-09-23] MEDS: Insulin NovoLOG Aspart Correctional Sugar Inj SQ SCH ×5 (03:02→21:18)
[2018-09-23] MEDS: HYDROmorphone PF Inj 1 MG/ML Ampul IV.PUSH PRN ×5 (05:07→22:32)
[2018-09-23] MEDS: Piperacil/Tazo 3.375 GM Premix 50 ML IV.SIG SCH ×3 (05:10→17:38)
[2018-09-23 07:45] LABS: Calcium 8.5 mg/dL (8.5-10.1); Carbon Dioxide 26.3 meq/L (21.0-32.0); Potassium 4.2 meq/L (3.5-5.1)
[2018-09-23] MEDS: Ramipril 2.5 MG Capsule PO SCH (08:28)
[2018-09-23] MEDS: Spironolactone 25 MG Tablet PO SCH (08:28)
[2018-09-23] MEDS: Carvedilol 12.5 MG Tablet PO SCH ×2 (08:29→21:18)
[2018-09-23] MEDS: dilTIAZem 60 MG Tablet PO SCH ×4 (08:31→21:18)
[2018-09-23] MEDS: Aspirin 325 MG Tablet PO SCH (08:31)
--- NOTE | 2018-09-23 09:46 | P.PN ---
Subjective Interval history: This is a pleasant 58 y/o Male with New onset of Atrial Fibrillation abdominal wall cellulitis and Hernia 09/21: Seen in her bedroom, intensive care specialist following, has CAD asymptomatic, to continue with Lovenox Aspirin 81 mg once authorized by allergy and immunology specialist, with diagnosis of Cardiomyopathy, CAD, Atrial fibrillation to continue Cardizem, EF 40%, on Coreg and Altace, he has also COPD, Obesity, Status post multiple hernia repair, History of Colon Cancer status post hemicolectomy status post Chemo, ID specialist following on Vancomycin and Zosyn, as per General Surgery thinking if not improving may need surgical intervention, Doctor Lau is his Primary General Surgeon doctor Sid to follow on Monday09/24/18. 09/23: Seen in his bedroom discussed with nurse Miss Richardson, no nausea, vomit or diarrhea, as per patient he is not improving he continue antibiotics and there's not planned any procedure at this time. continue management. Physical Exam Vital signs: Vital Signs 09/22/18 11:00 09/22/18 12:00 09/22/18 12:40 Temperature 98.7 F Pulse Rate 98 H Respiratory Rate 20 17 18 Blood Pressure 118/59 L Pulse Oximetry 96 09/22/18 15:20 09/22/18 16:00 09/22/18 17:40 Temperature 98.6 F Pulse Rate 63 Respiratory Rate 8 L 16 18 Blood Pressure 98/49 L Pulse Oximetry 95 09/22/18 19:25 09/22/18 20:00 09/23/18 00:00 Temperature 97.8 F 97.5 F L Pulse Rate 71 81 Respiratory Rate 18 18 20 Blood Pressure 148/64 H 123/83 Pulse Oximetry 93 L 93 L 09/23/18 04:00 Temperature 97.2 F L Pulse Rate 59 L Respiratory Rate 20 Blood Pressure 119/88 Pulse Oximetry 93 L Intake & Output 09/22/18 09/23/18 09/23/18 18:59 06:59 18:59 Intake Total 1145 / 1145 1255 / 1255 Output Total 200 / 200 600 / 600 Balance 945 / 945 655 / 655 Weight 122.6 kg Intake: IV 665 / 665 625 / 625 Zosyn 3.375 GM Premix 50 ML @ 150 / 150 100 / 100 100 mls/hr IV.SIG Q6H [facility] Rx#: [id number] Vancomycin Inj 1,500 MG In NS 515 / 515 525 / 525 Inj 500 ML @ 250 mls/hr IV.SIG Q12H [facility] Rx#:[id number] Oral 480 / 480 630 / 630 Output: Urine 200 / 200 600 / 600 Other: # Voids 3 3 Date of Last Bowel Movement 09/21/18 09/21/18 # Bowel Movements 1 Narrative: Gen.: No acute distress Head: Normocephalic. Atraumatic. EENT: Pupils equal round and reactive to light. Nose without drainage. Airway intact. Throat without injection. Cardiovascular: Tachycardic. Irregularly irregular rhythm. No murmurs, rubs or gallops. Respiratory: Lungs clear to auscultation bilaterally. No wheezes or rhonchi. Abdomen: Soft, nontender, erythema and edema on periumbilical area, on Umbilical hernia area. and scars. Musculoskeletal: No gross deformities. No edema. Skin: Central abdominal erythema that is warm to the touch. No drainage noted. No areas of fluctuance. Neuro: Sensory and motor grossly intact. Cranial nerves II through XII grossly intact. Results - Labs CBC & Chem 7: 09/20/18 06:40 09/23/18 06:14 Laboratory Results - last 24 hr 09/22/18 09/22/18 09/22/18 12:14 12:45 17:09 Sodium Potassium Chloride Carbon Dioxide Anion Gap BUN Creatinine Estimated GFR POC Glucose 114 H 99 Random Glucose Calcium B-Natriuretic Peptide Vancomycin Trough 10.3 H 09/22/18 09/23/18 09/23/18 20:11 02:58 06:14 Sodium Potassium Chloride Carbon Dioxide Anion Gap BUN Creatinine Estimated GFR POC Glucose 170 H 135 H Random Glucose Calcium B-Natriuretic Peptide 466 H Vancomycin Trough 09/23/18 09/23/18 06:14 09:42 Sodium 141 Potassium 4.2 Chloride 108 H Carbon Dioxide 26.3 Anion Gap 7 BUN 19 H Creatinine 1.06 Estimated GFR 72 L POC Glucose 194 H Random Glucose 104 Calcium 8.5 B-Natriuretic Peptide Vancomycin Trough Microbiology 09/19/18 17:30 Blood - Peripheral Aerobic Blood Culture - Preliminary No growth in 3 days 09/19/18 17:30 Blood - Peripheral Anaerobic Blood Culture - Preliminary No growth in 3 days 09/19/18 17:38 Blood - Peripheral Aerobic Blood Culture - Preliminary No growth in 3 days 09/19/18 17:38 Blood - Peripheral Anaerobic Blood Culture - Preliminary No growth in 3 days 09/21/18 15:30 Fluid - Other Gram Stain - Final - Imaging Abdomen/Pelvis CT 09/19/18 17:31 CONCLUSION: 1. Previous ventral hernia repair. Associated large, chronic and nonindurated appearing intraperitoneal fluid collection is without appreciable change but there is a new, small and indurated appearing subcutaneous fluid collection at the umbilicus. Just above the subcutaneous fluid collection is a new area of herniated fat. 2. Enlarged and fatty infiltrated liver, similar to before. 3. No acute abnormalities are seen within the abdominal or pelvic cavity. Patient has situs inversus. There is a moderate size hiatal hernia. Chest CTA 09/19/18 17:31 CONCLUSION: 1. No pulmonary embolus. 2. Very mild dependent atelectasis of both lungs. No pneumonia, effusion or pneumothorax. 3. Mild to moderate emphysema. 4. Coronary artery calcification. 5. Moderate size hiatal hernia. 6. Situs inversus. Chest X-Ray 09/19/18 17:31 CONCLUSION: 1. Situs inversus. 2. Mild cardiomegaly with no evidence of pulmonary edema. Needle Aspiration US 09/21/18 00:00 CONCLUSION: 1. Uncomplicated ultrasound-guided aspiration of superficial subcutaneous periumbilical fluid collection, as above. - Procedures None Assessment and Plan - Plan 58-year-old man with 1. New onset atrial fibrillation with rapid ventricular response/CAD/History of TIA/CHF CHADS2 VASC score 4, Anticoagulation indicated, intensive care specialist following has history of GI bleed anticoagulated with Lovenox. following Echocardiogram and BNP. Thrombocytopenia following Platelet count. 09/21: intensive care specialist following, has CAD asymptomatic, to continue with Lovenox Aspirin 81 mg once authorized by allergy and immunology specialist, with diagnosis of Cardiomyopathy, CAD, Atrial fibrillation to continue Cardizem, EF 40%, on Coreg and Altace. 2. Abdominal wall cellulitis/Persistent Seroma CT of the abdomen/pelvis reveals persistent seroma with new small subcutaneous fluid collection at the umbilicus 09/21: Status post multiple hernia repair, History of Colon Cancer status post hemicolectomy status post Chemo, ID specialist following on Vancomycin and Zosyn, as per General Surgery thinking if not improving may need surgical intervention, Doctor Lau is his Primary General Surgeon doctor Lau to follow on Monday09/24/18. 3. Diabetes mellitus Sliding scale insulin Monitor blood glucose Check A1c 4. COPD non exacerbated. Atrovent Supplemental oxygen as needed 5. Tobacco dependence strongly recommended to stop smoking. 6. History of situs inversus Transfer to [facility] Code Status: Full Code. Discussed Condition With: Patient and Nurse Miss Almonte. Discharge Planning: Once cleared by Specialists.
[2018-09-23] MEDS: Enoxaparin Inj 100 MG/ML Syringe SQ SCH ×2 (10:05→22:32)
--- NOTE | 2018-09-23 11:34 | P.PNGS ---
Subjective Patient reports: still having pain, tolerating a regular diet, afebrile Physical Exam Vital signs: Vital Signs 09/22/18 12:00 09/22/18 12:40 09/22/18 15:20 Temperature 98.7 F Pulse Rate 98 H Respiratory Rate 17 18 8 L Blood Pressure 118/59 L Pulse Oximetry 96 09/22/18 16:00 09/22/18 17:40 09/22/18 19:25 Temperature 98.6 F Pulse Rate 63 Respiratory Rate 16 18 18 Blood Pressure 98/49 L Pulse Oximetry 95 09/22/18 20:00 09/23/18 00:00 09/23/18 04:00 Temperature 97.8 F 97.5 F L 97.2 F L Pulse Rate 71 81 59 L Respiratory Rate 18 20 20 Blood Pressure 148/64 H 123/83 119/88 Pulse Oximetry 93 L 93 L 93 L 09/23/18 08:00 Temperature 97.0 F L Pulse Rate 95 H Respiratory Rate 17 Blood Pressure 119/86 Pulse Oximetry 93 L Intake & Output 09/22/18 09/23/18 09/23/18 18:59 06:59 18:59 Intake Total 1145 / 1145 1255 / 1255 Output Total 200 / 200 600 / 600 Balance 945 / 945 655 / 655 Weight 122.6 kg Intake: IV 665 / 665 625 / 625 Zosyn 3.375 GM Premix 50 ML @ 150 / 150 100 / 100 100 mls/hr IV.SIG Q6H [facility] Rx#: [id number] Vancomycin Inj 1,500 MG In NS 515 / 515 525 / 525 Inj 500 ML @ 250 mls/hr IV.SIG Q12H [facility] Rx#:[id number] Oral 480 / 480 630 / 630 Output: Urine 200 / 200 600 / 600 Other: # Voids 3 3 Date of Last Bowel Movement 09/21/18 09/21/18 # Bowel Movements 1 - Routine Abdominal Exam Present: soft, normoactive bowel sounds, tenderness, surgical scars, wound Comments: diffuse erythema with blistering along incision, starting to weep Results - Labs 09/20/18 06:40 09/23/18 06:14 Laboratory Results - last 24 hr 09/22/18 09/22/18 09/22/18 12:14 12:45 17:09 Sodium Potassium Chloride Carbon Dioxide Anion Gap BUN Creatinine Estimated GFR POC Glucose 114 H 99 Random Glucose Calcium B-Natriuretic Peptide Vancomycin Trough 10.3 H 09/22/18 09/23/18 09/23/18 20:11 02:58 06:14 Sodium Potassium Chloride Carbon Dioxide Anion Gap BUN Creatinine Estimated GFR POC Glucose 170 H 135 H Random Glucose Calcium B-Natriuretic Peptide 466 H Vancomycin Trough 09/23/18 09/23/18 06:14 09:42 Sodium 141 Potassium 4.2 Chloride 108 H Carbon Dioxide 26.3 Anion Gap 7 BUN 19 H Creatinine 1.06 Estimated GFR 72 L POC Glucose 194 H Random Glucose 104 Calcium 8.5 B-Natriuretic Peptide Vancomycin Trough - Imaging Imaging: ITS Impressions Abdomen/Pelvis CT 09/19/18 17:31 CONCLUSION: 1. Previous ventral hernia repair. Associated large, chronic and nonindurated appearing intraperitoneal fluid collection is without appreciable change but there is a new, small and indurated appearing subcutaneous fluid collection at the umbilicus. Just above the subcutaneous fluid collection is a new area of herniated fat. 2. Enlarged and fatty infiltrated liver, similar to before. 3. No acute abnormalities are seen within the abdominal or pelvic cavity. Patient has situs inversus. There is a moderate size hiatal hernia. Chest CTA 09/19/18 17:31 CONCLUSION: 1. No pulmonary embolus. 2. Very mild dependent atelectasis of both lungs. No pneumonia, effusion or pneumothorax. 3. Mild to moderate emphysema. 4. Coronary artery calcification. 5. Moderate size hiatal hernia. 6. Situs inversus. Chest X-Ray 09/19/18 17:31 CONCLUSION: 1. Situs inversus. 2. Mild cardiomegaly with no evidence of pulmonary edema. Needle Aspiration US 09/21/18 00:00 CONCLUSION: 1. Uncomplicated ultrasound-guided aspiration of superficial subcutaneous periumbilical fluid collection, as above. Assessment and Plan - Assessment (1) Cellulitis of abdominal wall Code(s): L03.311 - Cellulitis of abdominal wall Status: Acute Plan: 58 year old male with abdominal cellulitis; prior hernia repair and mesh present -Continue antibiotics---Zosyn and Vancomycin -Adjusted pain medications -If the patient does not continue to improve with antibiotics may need to discuss surgical intervention with mesh removal -Will continue to follow daily; Dr. Lau to return Monday to see him - Plan will likely need ID, Dr Larson aware NPO p MN
--- NOTE | 2018-09-23 14:43 | P.PNCA ---
Subjective Interval history: alert in nad Medications and Allergies Active Medications: Active Medications Albuterol (Duoneb Neb (Prn)) 1 ampul NEB Q2HR NEB PRN PRN Reason: SHORTNESS OF BREATH Last Admin: 09/21/18 00:41 Dose: 1 ampul Aspirin (Aspirin) 325 mg PO DAILY [facility] Last Admin: 09/23/18 08:31 Dose: 325 mg Carvedilol (Coreg) 12.5 mg PO BID [facility] Last Admin: 09/23/18 08:29 Dose: 12.5 mg Dextrose (D50w Vial) 50 ml IV.PUSH UNSCH PRN PRN Reason: PER HYPOGLYCEMIA PROTOCOL Diltiazem HCl (Cardizem) 60 mg PO QID [facility] Last Admin: 09/23/18 12:07 Dose: 60 mg Enoxaparin Sodium (Lovenox Inj) 100 mg SQ Q12H [facility] Last Admin: 09/23/18 10:05 Dose: 100 mg Glucagon (Glucagon Inj) 1 mg OTHER PRN PRN PRN Reason: for Hypoglycemia Protocol Hydromorphone HCl (Dilaudid Pf Inj) 1 mg IV.PUSH Q4H PRN PRN Reason: BREAKTHROUGH PAIN Last Admin: 09/23/18 14:32 Dose: 1 mg Piperacillin/Tazobactam/Dextrose (Zosyn 3.375 Gm Premix) 50 mls @ 100 mls/hr IV.SIG Q6H [facility] Last Infusion: 09/23/18 14:38 Dose: 100 mls/hr Vancomycin HCl 1,500 mg/ (Sodium Chloride) 515 mls @ 250 mls/hr IV.SIG Q12H [facility] Last Infusion: 09/23/18 03:55 Dose: Infused Insulin Aspart (Novolog Insulin [place] Sugar Inj) 0 unit SQ ACHS AND 3AM [facility]; Protocol Last Admin: 09/23/18 13:22 Dose: 1 unit Ipratropium [place] (Atrovent Neb) 0.5 mg NEB Q4HR NEB PRN PRN Reason: sob/wheezing Last Admin: 09/20/18 03:40 Dose: 0.5 mg Naloxone HCl (Narcan Inj) 0.4 mg IV.PUSH UNSCH PRN PRN Reason: SEE LABEL COMMENTS Nicotine (Habitrol 21 Mg Patch.24 Hr) 1 patch T-DERMAL DAILY [facility] Last Admin: 09/23/18 08:32 Dose: Not Given Oxycodone/Acetaminophen (Percocet 10/325 Mg) 1 tab PO Q4H PRN PRN Reason: pain 6-10 Last Admin: 09/23/18 13:20 Dose: 1 tab Oxycodone/Acetaminophen (Percocet 5/325 Mg) 1 tab PO Q4H PRN PRN Reason: pain 1-5 Patch Removal (Remove Old Patch) 1 each T-DERMAL DAILY [facility] Last Admin: 09/23/18 08:32 Dose: Not Given Pharmacy Profile Note (Vancomycin Consult Pharmacy) 1 each OTHER UNSCH PRN PRN Reason: Pharmacy to dose Ramipril (Altace) 5 mg PO DAILY [facility] Senna/Docusate Sodium ([place]aven-Colace) 1 tab PO BID PRN PRN Reason: CONSTIPATION Sodium Chloride (Ns Flush) 2 ml IV.FLUSH PRN PRN PRN Reason: FLUSH AFTER USING IV ACCESS Sodium Chloride (Ns Flush) 2 ml IV.FLUSH BID [facility] Last Admin: 09/23/18 08:33 Dose: 2 ml Spironolactone (Aldactone) 50 mg PO BID@0900,1800 [facility] Allergies Allergy/AdvReac Type Severity Reaction Status Date / Time No Known Allergies Allergy Verified 09/19/18 17:25 Home Medications Medication Instructions Recorded Confirmed Type aspirin 325 mg PO DAILY 09/19/18 09/19/18 History Physical Exam Vital signs: Vital Signs 09/22/18 15:20 09/22/18 16:00 09/22/18 17:40 Temperature 98.6 F Pulse Rate 63 Respiratory Rate 8 L 16 18 Blood Pressure 98/49 L Pulse Oximetry 95 09/22/18 19:25 09/22/18 20:00 09/23/18 00:00 Temperature 97.8 F 97.5 F L Pulse Rate 71 81 Respiratory Rate 18 18 20 Blood Pressure 148/64 H 123/83 Pulse Oximetry 93 L 93 L 09/23/18 04:00 09/23/18 08:00 09/23/18 12:00 Temperature 97.2 F L 97.0 F L 97.5 F L Pulse Rate 59 L 95 H 62 Respiratory Rate 20 17 15 Blood Pressure 119/88 119/86 131/70 Pulse Oximetry 93 L 93 L 93 L Intake & Output 09/22/18 09/23/18 09/23/18 18:59 06:59 18:59 Intake Total 1145 / 1145 1255 / 1255 Output Total 200 / 200 600 / 600 Balance 945 / 945 655 / 655 Weight 122.6 kg Intake: IV 665 / 665 625 / 625 Zosyn 3.375 GM Premix 50 ML @ 150 / 150 100 / 100 100 mls/hr IV.SIG Q6H [facility] Rx#: [id number] Vancomycin Inj 1,500 MG In NS 515 / 515 525 / 525 Inj 500 ML @ 250 mls/hr IV.SIG Q12H [facility] Rx#:[id number] Oral 480 / 480 630 / 630 Output: Urine 200 / 200 600 / 600 Other: # Voids 3 3 Date of Last Bowel Movement 09/21/18 09/21/18 # Bowel Movements 1 - Constitutional no acute distress - Routine HEENT Exam Head: Present: normocephalic - Routine Neck Exam Present: supple - Routine Respiratory Exam Present: CTA bilaterally - Routine Cardiovascular Exam Present: S1, S2 - Routine Abdominal Exam Present: soft - Routine Extremities Exam Comments: no noelle Results 09/20/18 06:40 09/23/18 06:14 Cardiac Enzymes 09/21/18 09/22/18 09/23/18 Range/Units 18:55 04:44 06:14 B-Natriuretic Peptide 440 H 473 H 466 H (0-100) pg/mL Coagulation 09/21/18 09/22/18 09/23/18 Range/Units 18:55 04:44 06:14 B-Natriuretic Peptide 440 H 473 H 466 H (0-100) pg/mL Lipids 09/22/18 Range/Units 04:44 Triglycerides 88 (42-150) mg/dL Cholesterol 118 L (120-200) mg/dL HDL Cholesterol 37.8 L (40.0-60.0) mg/dL Cholesterol/HDL Ratio 3.12 Ratio Comprehensive Metabolic Panel 09/22/18 09/23/18 Range/Units 04:44 06:14 Sodium 139 141 (136-145) meq/L Potassium 4.0 4.2 (3.5-5.1) meq/L Chloride 107 108 H (98-107) meq/L Carbon Dioxide 25.1 26.3 (21.0-32.0) meq/L BUN 17 19 H (7-18) mg/dL Creatinine 1.02 1.06 (0.60-1.30) mg/dL Calcium 7.8 L 8.5 (8.5-10.1) mg/dL Intake and Output 09/22/18 09/23/18 09/23/18 22:59 06:59 14:59 Intake Total 1045 / 1045 1255 / 1255 Output Total 600 / 600 Balance 1045 / 1045 655 / 655 Intake: IV 565 / 565 625 / 625 Zosyn 3.375 GM Premix 50 ML @ 50 / 50 100 / 100 100 mls/hr IV.SIG Q6H [facility] Rx#: [id number] Vancomycin Inj 1,500 MG In NS 515 / 515 525 / 525 Inj 500 ML @ 250 mls/hr IV.SIG Q12H [facility] Rx#:[id number] Oral 480 / 480 630 / 630 Output: Urine 600 / 600 Other: # Voids 3 3 Date of Last Bowel Movement 09/21/18 09/21/18 # Bowel Movements 1 Weight 122.6 kg - Imaging and Cardiology Imaging: Impressions Needle Aspiration US 09/21/18 00:00 CONCLUSION: 1. Uncomplicated ultrasound-guided aspiration of superficial subcutaneous periumbilical fluid collection, as above. Assessment and Plan - Assessment (1) Cardiomyopathy Code(s): I42.9 - Cardiomyopathy, unspecified Status: Acute (2) Tobacco abuse Code(s): Z72.0 - Tobacco use Status: Acute (3) CAD (coronary artery disease) Code(s): I25.10 - Atherosclerotic heart disease of [place] coronary artery without angina pectoris Status: Acute (4) Cellulitis of abdominal wall Code(s): L03.311 - Cellulitis of abdominal wall Status: Acute (5) Atrial fibrillation with RVR Code(s): I48.91 - Unspecified atrial fibrillation Status: Acute (6) COPD (chronic obstructive pulmonary disease) Code(s): J44.9 - Chronic obstructive pulmonary disease, unspecified Status: Acute - Plan 1.) CAD - assymptomatic, check fasting lipids, lfts, on lovenox, start aspirin 81 mg qd if/when surgery is not indicated 2.) Cardiomyopathy - ef=40%, start coreg. Increase altace to 5 mg qd and aldactone to 50 mg bid, f/u bmp/bnp/mag 3.) Afib rvr - rate controlled on cardizem, h/o gid due to pud requiring transfusion in 2016, uncertain f/u due to lack of insurance; on lovenox, chadsvasc score =4, will consider noac or coumadin if no bleeding on lovenox and patient has f/u with pcp 4.) Patient strongly advised to stop smoking
[2018-09-23] MEDS: Spironolactone 50 MG Tablet PO SCH (17:38)
[2018-09-24] MEDS: Vancomycin Inj 1,500 MG in Sodium Chlor 0.9% Inj 500 ML IV.SIG SCH ×2 (00:36→16:07)
[2018-09-24] MEDS: oxyCODONE/Acetaminophen 10/325 Tablet PO PRN ×5 (01:24→22:48)
[2018-09-24] MEDS: HYDROmorphone PF Inj 1 MG/ML Ampul IV.PUSH PRN ×4 (02:31→21:14)
[2018-09-24] MEDS: Insulin NovoLOG Aspart Correctional Sugar Inj SQ SCH ×5 (02:31→21:13)
[2018-09-24] MEDS: Piperacil/Tazo 3.375 GM Premix 50 ML IV.SIG SCH ×4 (05:20→18:21)
[2018-09-24 07:48] LABS: Hematocrit 41.8 % (39.0-51.0); Mean Corpuscular HGB Conc 33.6 % (32.0-36.0); Mean Corpuscular Hemoglobin 30.1 pg (27.0-34.0); Mean Corpuscular Volume 89.8 fL (80.0-100.0); Mean Platelet Volume 9.2 fL (7.0-11.0); Platelet Count 173 th/mm3 (150-450); Red Blood Count 4.66 mil/mm3 (4.50-5.90); Red Cell Distribution Width 14.4 % (11.6-17.2); White Blood Count 7.2 th/mm3 (4.0-11.0)
[2018-09-24 08:00] LABS: Calcium 8.6 mg/dL (8.5-10.1); Carbon Dioxide 24.2 meq/L (21.0-32.0); Magnesium 2.1 mg/dL (1.5-2.5); Potassium 4.3 meq/L (3.5-5.1)
[2018-09-24] MEDS: Aspirin 325 MG Tablet PO SCH (10:00)
[2018-09-24] MEDS: Spironolactone 50 MG Tablet PO SCH ×2 (10:00→17:11)
[2018-09-24] MEDS: Ramipril 5 MG Capsule PO SCH (10:00)
[2018-09-24] MEDS: Carvedilol 12.5 MG Tablet PO SCH ×2 (10:00→21:13)
[2018-09-24] MEDS: dilTIAZem 60 MG Tablet PO SCH ×4 (10:00→21:13)
--- NOTE | 2018-09-24 10:30 | XR ---
EXAM DATE: 09/24/2018 10:24 AM EST AGE/SEX: 58 years / Male INDICATIONS: Shortness of breath. CLINICAL DATA: This is the patient's subsequent encounter. Patient reports that signs and symptoms h ave been present for 3 days and indicates a pain score of 8/10. MEDICAL/SURGICAL HISTORY: Chronic obstructive pulmonary disease. Diabetes mellitus type II. H ypertension. Colon Cancer . Hernia repair. Partial colectomy. COMPARISON: [facility] – [place], CHEST 1V SINGLE AP, 09/19/2018. . FINDINGS: The examination demonstrates situs inversus. There are chronic interstitial changes within the parenc hyma. There is minimal right basilar effusion and increasing infiltrate bilaterally. Exam would sugge st possible mild CHF. This appears worsened when compared to previous of 09/19/2018. The osseous structures are grossly intact. CONCLUSION: Situs inversus. Increasing effusion at the right lung base and diffuse infiltrates suggesting CHF. Electronically signed by: Karl Garcia MD 09/24/2018 10:28 AM EST
--- NOTE | 2018-09-24 10:32 | XR ---
EXAM DATE: 09/24/2018 10:28 AM EST AGE/SEX: 58 years / Male INDICATIONS: Abdominal distention. CLINICAL DATA: This is the patient's subsequent encounter. Patient reports that signs and symptoms h ave been present for 3 days and indicates a pain score of 8/10. MEDICAL/SURGICAL HISTORY: Chronic obstructive pulmonary disease. Diabetes mellitus type II. H ypertension. Colon resection. Hernia repair COMPARISON: [facility] [place] ABDOMEN FLAT & UPRIGHT, 10/08/2016. . FINDINGS: There is mild gaseous distention of large and small bowel. Nothing to suggest obstructive process. C lips are present from previous mesh abdominal wall reconstruction. There are no definite suspicious c alcific densities. Degenerative changes noted in the spine and hips. CONCLUSION: Nonspecific intestinal gas pattern Electronically signed by: Rob Travis MD 09/24/2018 10:30 AM EST
[2018-09-24] MEDS ORDERED: Metoprolol Tartrate 25 MG Tablet PO ONE (12:54)
[2018-09-24] MEDS ORDERED: Chlorhexidine Gluconate 2% 1 Pack (2 Cloths) TOPICAL ONE (12:54)
[2018-09-24] MEDS ORDERED: Sodium Chlor 0.9% Inj 500 ML IV.SIG ONE (13:00)
--- NOTE | 2018-09-24 13:21 | P.PN ---
Subjective Interval history: This is a pleasant 58 y/o Male with New onset of Atrial Fibrillation abdominal wall cellulitis and Hernia 09/21: Seen in her bedroom, ecmo specialist following, has CAD asymptomatic, to continue with Lovenox Aspirin 81 mg once authorized by allergy specialist, with diagnosis of Cardiomyopathy, CAD, Atrial fibrillation to continue Cardizem, EF 40%, on Coreg and Altace, he has also COPD, Obesity, Status post multiple hernia repair, History of Colon Cancer status post hemicolectomy status post Chemo, ID specialist following on Vancomycin and Zosyn, as per General Surgery thinking if not improving may need surgical intervention, Doctor Lau is his Primary General Surgeon doctor Sid to follow on Monday09/24/18. 09/23: Seen in his bedroom discussed with nurse Miss Richardson, no nausea, vomit or diarrhea, as per patient he is not improving he continue antibiotics and there's not planned any procedure at this time. continue management. 09/24: Stable in his bedroom, no nausea, vomit or diarrhea, continue antibiotics. Physical Exam Vital signs: Vital Signs 09/23/18 16:00 09/23/18 20:00 09/23/18 21:53 Temperature 97.8 F 98.2 F Pulse Rate 62 82 76 Respiratory Rate 16 18 27 H Blood Pressure 102/63 115/76 Pulse Oximetry 94 L 92 L 97 09/24/18 00:00 09/24/18 01:37 09/24/18 04:00 Temperature 98 F 97.5 F L Pulse Rate 83 67 87 Respiratory Rate 18 23 18 Blood Pressure 128/86 125/85 Pulse Oximetry 92 L 92 L 09/24/18 08:00 09/24/18 12:00 Temperature 97.4 F L 97.4 F L Pulse Rate 93 H 104 H Respiratory Rate 22 20 Blood Pressure 152/98 H Pulse Oximetry 94 L 94 L Intake & Output 09/23/18 09/24/18 09/24/18 18:59 06:59 18:59 Intake Total 1005 / 1005 1240 / 1240 Balance 1005 / 1005 1240 / 1240 Weight 122.6 kg Intake: IV 525 / 525 520 / 520 Zosyn 3.375 GM Premix 50 ML @ 50 / 50 100 mls/hr IV.SIG Q6H [facility] Rx#: [id number] Vancomycin Inj 1,500 MG In NS 525 / 525 470 / 470 Inj 500 ML @ 250 mls/hr IV.SIG Q12H [facility] Rx#:[id number] Oral 480 / 480 720 / 720 Other: # Voids 3 8 Date of Last Bowel Movement 09/21/18 Narrative: Gen.: No acute distress Head: Normocephalic. Atraumatic. EENT: Pupils equal round and reactive to light. Nose without drainage. Airway intact. Throat without injection. Cardiovascular: Tachycardic. Irregularly irregular rhythm. No murmurs, rubs or gallops. Respiratory: Lungs clear to auscultation bilaterally. No wheezes or rhonchi. Abdomen: Soft, nontender, erythema and edema on periumbilical area, on Umbilical hernia area. and scars. Musculoskeletal: No gross deformities. No edema. Skin: Central abdominal erythema that is warm to the touch. No drainage noted. No areas of fluctuance. Neuro: Sensory and motor grossly intact. Cranial nerves II through XII grossly intact. Results - Labs CBC & Chem 7: 09/24/18 05:35 09/24/18 05:35 Laboratory Results - last 24 hr 09/23/18 09/23/18 09/24/18 17:48 21:14 02:31 WBC RBC Hgb Hct MCV MCH MCHC RDW Plt Count MPV Sodium Potassium Chloride Carbon Dioxide Anion Gap BUN Creatinine Estimated GFR POC Glucose 161 H 155 H 132 H Random Glucose Calcium Magnesium B-Natriuretic Peptide 09/24/18 09/24/18 09/24/18 05:35 05:35 05:35 WBC 7.2 RBC 4.66 Hgb 14.0 Hct 41.8 MCV 89.8 MCH 30.1 MCHC 33.6 RDW 14.4 Plt Count 173 MPV 9.2 Sodium 141 Potassium 4.3 Chloride 108 H Carbon Dioxide 24.2 Anion Gap 9 BUN 23 H Creatinine 1.27 Estimated GFR 58 L POC Glucose Random Glucose 108 H Calcium 8.6 Magnesium 2.1 B-Natriuretic Peptide 485 H 09/24/18 09/24/18 08:24 12:49 WBC RBC Hgb Hct MCV MCH MCHC RDW Plt Count MPV Sodium Potassium Chloride Carbon Dioxide Anion Gap BUN Creatinine Estimated GFR POC Glucose 99 117 H Random Glucose Calcium Magnesium B-Natriuretic Peptide Microbiology 09/21/18 15:30 Fluid - Other Gram Stain - Final 09/21/18 15:30 Fluid - Other Body Fluid Culture - Preliminary No growth in 48 hours 09/19/18 17:30 Blood - Peripheral Aerobic Blood Culture - Final No growth in 5 days 09/19/18 17:30 Blood - Peripheral Anaerobic Blood Culture - Final No growth in 5 days 09/19/18 17:38 Blood - Peripheral Aerobic Blood Culture - Final No growth in 5 days 09/19/18 17:38 Blood - Peripheral Anaerobic Blood Culture - Final No growth in 5 days - Imaging Impressions Abdomen X-Ray 09/24/18 00:00 CONCLUSION: Nonspecific intestinal gas pattern Chest X-Ray 09/24/18 00:00 CONCLUSION: Situs inversus. Increasing effusion at the right lung base and diffuse infiltrates suggesting CHF. - Procedures None Assessment and Plan - Plan 58-year-old man with 1. New onset atrial fibrillation with rapid ventricular response/CAD/History of TIA/CHF CHADS2 VASC score 4, Anticoagulation indicated, ecmo specialist following has history of GI bleed anticoagulated with Lovenox. following Echocardiogram and BNP. Thrombocytopenia following Platelet count. 09/21: ecmo specialist following, has CAD asymptomatic, to continue with Lovenox Aspirin 81 mg once authorized by allergy specialist, with diagnosis of Cardiomyopathy, CAD, Atrial fibrillation to continue Cardizem, EF 40%, on Coreg and Altace. 2. Abdominal wall cellulitis/Persistent Seroma CT of the abdomen/pelvis reveals persistent seroma with new small subcutaneous fluid collection at the umbilicus 09/21: Status post multiple hernia repair, History of Colon Cancer status post hemicolectomy status post Chemo, ID specialist following on Vancomycin and Zosyn, as per General Surgery thinking if not improving may need surgical intervention, Doctor Lau is his Primary General Surgeon doctor Sid to follow on Monday09/24/18. 3. Diabetes mellitus Sliding scale insulin Monitor blood glucose Check A1c 4. COPD non exacerbated. Atrovent Supplemental oxygen as needed 5. Tobacco dependence strongly recommended to stop smoking. 6. History of situs inversus No changes to anterior assessment. DVT prophylaxis with Lovenox. Code Status: Full code. Discussed Condition With: Patient and Nurse Miss Nascimento Discharge Planning: Once cleared by Specialists.
--- NOTE | 2018-09-24 17:25 | P.PNGS ---
Subjective Interval history: DAILY PROGRESS NOTE FOR SURGICAL ATTENDING, DR. MELANY CORONADO Up to chair Anxious to have surgery done Physical Exam Vital signs: Vital Signs 09/23/18 20:00 09/23/18 21:53 09/24/18 00:00 Temperature 98.2 F 98 F Pulse Rate 82 76 83 Respiratory Rate 18 27 H 18 Blood Pressure 115/76 128/86 Pulse Oximetry 92 L 97 92 L 09/24/18 01:37 09/24/18 04:00 09/24/18 08:00 Temperature 97.5 F L 97.4 F L Pulse Rate 67 87 93 H Respiratory Rate 23 18 22 Blood Pressure 125/85 Pulse Oximetry 92 L 94 L 09/24/18 12:00 Temperature 97.4 F L Pulse Rate 109 H Respiratory Rate 20 Blood Pressure 152/98 H Pulse Oximetry 94 L Intake & Output 09/23/18 09/24/18 09/24/18 18:59 06:59 18:59 Intake Total 1005 / 1005 1240 / 1240 50 / 50 Output Total 995 / 995 Balance 1005 / 1005 1240 / 1240 -945 / -945 Weight 122.6 kg Intake: IV 525 / 525 520 / 520 50 / 50 Zosyn 3.375 GM Premix 50 ML @ 50 / 50 50 / 50 100 mls/hr IV.SIG Q6H [facility] Rx#: [id number] Vancomycin Inj 1,500 MG In NS 525 / 525 470 / 470 Inj 500 ML @ 250 mls/hr IV.SIG Q12H [facility] Rx#:[id number] Oral 480 / 480 720 / 720 Output: Urine 995 / 995 Other: # Voids 3 8 2 Date of Last Bowel Movement 09/21/18 Narrative: Alert and awake Abd: continues to have erythema; blister in the midline incision Results - Labs 09/24/18 05:35 09/24/18 05:35 Laboratory Results - last 24 hr 09/23/18 09/23/18 09/24/18 17:48 21:14 02:31 WBC RBC Hgb Hct MCV MCH MCHC RDW Plt Count MPV Sodium Potassium Chloride Carbon Dioxide Anion Gap BUN Creatinine Estimated GFR POC Glucose 161 H 155 H 132 H Random Glucose Calcium Magnesium B-Natriuretic Peptide 09/24/18 09/24/18 09/24/18 05:35 05:35 05:35 WBC 7.2 RBC 4.66 Hgb 14.0 Hct 41.8 MCV 89.8 MCH 30.1 MCHC 33.6 RDW 14.4 Plt Count 173 MPV 9.2 Sodium 141 Potassium 4.3 Chloride 108 H Carbon Dioxide 24.2 Anion Gap 9 BUN 23 H Creatinine 1.27 Estimated GFR 58 L POC Glucose Random Glucose 108 H Calcium 8.6 Magnesium 2.1 B-Natriuretic Peptide 485 H 09/24/18 09/24/18 09/24/18 08:24 12:49 15:57 WBC RBC Hgb Hct MCV MCH MCHC RDW Plt Count MPV Sodium Potassium Chloride Carbon Dioxide Anion Gap BUN Creatinine Estimated GFR POC Glucose 99 117 H 116 H Random Glucose Calcium Magnesium B-Natriuretic Peptide - Imaging Imaging: ITS Impressions Abdomen/Pelvis CT 09/19/18 17:31 CONCLUSION: 1. Previous ventral hernia repair. Associated large, chronic and nonindurated appearing intraperitoneal fluid collection is without appreciable change but there is a new, small and indurated appearing subcutaneous fluid collection at the umbilicus. Just above the subcutaneous fluid collection is a new area of herniated fat. 2. Enlarged and fatty infiltrated liver, similar to before. 3. No acute abnormalities are seen within the abdominal or pelvic cavity. Patient has situs inversus. There is a moderate size hiatal hernia. Chest CTA 09/19/18 17:31 CONCLUSION: 1. No pulmonary embolus. 2. Very mild dependent atelectasis of both lungs. No pneumonia, effusion or pneumothorax. 3. Mild to moderate emphysema. 4. Coronary artery calcification. 5. Moderate size hiatal hernia. 6. Situs inversus. Needle Aspiration US 09/21/18 00:00 CONCLUSION: 1. Uncomplicated ultrasound-guided aspiration of superficial subcutaneous periumbilical fluid collection, as above. Abdomen X-Ray 09/24/18 00:00 CONCLUSION: Nonspecific intestinal gas pattern Chest X-Ray 09/24/18 00:00 CONCLUSION: Situs inversus. Increasing effusion at the right lung base and diffuse infiltrates suggesting CHF. 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 MELANY CORONADO Discussed surgical intervention with the patient Patient was set for surgery but then for some reason went back to the room and the family by nursing report gave him some dinner surgery cannot be done tonight I agree with above assessment and plan. The exam, history, and the medical decision-making described in the above note were completed with the assistance of the mid-level provider. I reviewed and agree with the findings presented. I attest that I had a [id number] encounter with the patient on the same day, and personally performed and documented my assessment and findings in the medical record. The following services were provided during this hospital visit: Chart data review, vital sign assessments/reviewing monitor data Review of consultations notes if present. Medication orders/review and/or management Ordering and/or reviewing lab tests Ordering and/or interpreting/reviewing x-rays and/or diagnostic studies Care of the patient and discussion of the patient with the care team Documentation time To help prompt me to consider important information that might be impacting today's encounter and assessment, Information from prior notes written by myself or my colleagues may have been "brought forward/copy and pasted" into today's note. (4) Subcutaneous abscess Qualifiers: Site of cutaneous abscess: trunk Site of cutaneous abscess of trunk: abdominal wall Qualified Code(s): L02.211 - Cutaneous abscess of abdominal wall
[2018-09-24 18:27] LABS: Hemoglobin A1c 6.1 % (4.3-6.0)
[2018-09-25] MEDS: Piperacil/Tazo 3.375 GM Premix 50 ML IV.SIG SCH ×5 (00:08→23:12)
[2018-09-25] MEDS: HYDROmorphone PF Inj 1 MG/ML Ampul IV.PUSH PRN ×2 (01:15→05:40)
[2018-09-25] MEDS: Vancomycin Inj 1,500 MG in Sodium Chlor 0.9% Inj 500 ML IV.SIG SCH ×2 (01:15→12:36)
[2018-09-25] MEDS: oxyCODONE/Acetaminophen 10/325 Tablet PO PRN ×2 (03:35→09:27)
[2018-09-25] MEDS: Insulin NovoLOG Aspart Correctional Sugar Inj SQ SCH ×4 (03:37→22:36)
[2018-09-25 07:36] LABS: Calcium 8.6 mg/dL (8.5-10.1); Carbon Dioxide 26.5 meq/L (21.0-32.0); Potassium 3.9 meq/L (3.5-5.1)
[2018-09-25] MEDS: Carvedilol 12.5 MG Tablet PO SCH ×2 (08:57→22:35)
[2018-09-25] MEDS: dilTIAZem 60 MG Tablet PO SCH ×4 (08:57→22:35)
[2018-09-25] MEDS: Spironolactone 50 MG Tablet PO SCH ×2 (08:57→17:38)
[2018-09-25] MEDS: Ramipril 5 MG Capsule PO SCH (08:57)
[2018-09-25] MEDS: Aspirin 325 MG Tablet PO SCH (08:57)
--- NOTE | 2018-09-25 13:25 | MP ---
cc: Jigar Lau MD DATE OF OPERATION: 09/25/2018 DATE OF PROCEDURE: 09/25/2018 PREOPERATIVE DIAGNOSIS: Subcutaneous abscess midline previous laparotomy for colon cancer. POSTOPERATIVE DIAGNOSIS: Subcutaneous abscess with abnormal appearing tissue with a probable stitch abscess. PROCEDURE: 1. sharp debridement and Excision of skin, subcutaneous tissue, necrotic adipose tissue with culture. 2. Removal of previous Prolene suture. 3. Irrigation and debridement and incision and drainage leaving a 6 x 2 cm deep. 4. placement of VAC device ANESTHESIA: General. SURGEON: Jigar Lau MD INDICATIONS: This is a pleasant 58-year-old gentleman who has situs inversus. He, last year, had a right-sided descending colon cancer removed, had chemotherapy, was doing fairly well and then developed the subcutaneous abscess. He was attempted to be treated with IV antibiotics without resolution. He is known to have a seroma below the mesh that had been previously placed years ago and this does not appear to be infected. Plans are made for above. DETAILS OF PROCEDURE: The patient was taken to the operating room and placed in bed position after anesthesia, abdomen prepped with Betadine. His scheduled antibiotics were held until we cultured it. Timeout was done. We then made an elliptical incision overlying the irritated skin and where the erythema is and where the CT scan shows this subcutaneous abscess. The subcutaneous tissue was excised sharply with sharp scissors and knives. The defect is a 5 x 3 cm, 3 cm deep. The deep subcutaneous tissue is somewhat necrotic and this is cultured. In this necrotic tissue is a piece of Prolene suture with a knot. This is pulled slightly to remove this, this may be the nidus of the infection. No other abnormalities seen. I removed as much necrotic tissue down to the deep subcutaneous tissue. I did not contact the mesh. Because of the amount of inflammatory response, I did place a VAC sponge into the cavity after irrigating with the pulse lavage with 300 mL. Electrocautery was used for hemostasis. After the wound appeared to be clean and healthy the VAC sponge was then cut to size and fit into place and connected to the device in typical fashion with a good seal. The patient tolerated the procedure well and returned to the recovery room without any immediate postop complications at the time of this dictation. Jigar Lau MD [email or web address]/ch , 12:59 PM , 01:07 PM MTDD
[2018-09-25] MEDS ORDERED: Propofol 1000 mg/100 ml Inj 1,000 MG/100 ML BOTTLE ONE (13:26)
[2018-09-25] MEDS ORDERED: *morphine SULFATE 10 MG/ML PERIprocedure ONLY ONE ×2 (14:03→17:52)
[2018-09-25] MEDS ORDERED: fentaNYL Citrate Inj 100 MCG/2 ML Ampul ONE (14:07)
[2018-09-25 14:14] LABS: ABG Base Excess -2.8 mmol/L (-2-2); ABG PCO2 48 mmHg (38-42); ABG PO2 78 mmHG (61-120)
[2018-09-25] MEDS ORDERED: Propofol 1000 mg/100 ml Inj 1,000 MG/100 ML BOTTLE IV.CONT PRN (14:21)
--- NOTE | 2018-09-25 14:37 | XR ---
EXAM DATE: 09/25/2018 2:29 PM EST AGE/SEX: 58 years / Male INDICATIONS: Re-Intubation. Post-op of abdomen drainage. CLINICAL DATA: This is the patient's initial encounter. Patient reports that signs and symptoms have been present for 1 day and indicates a pain score of Nonresponsive. MEDICAL/SURGICAL HISTORY: . Chronic obstructive pulmonary disease. Diabetes mellitus type II. H ypertension. . Colon resection. Hernia repair COMPARISON: C, CHEST 1V SINGLE AP, 09/24/2018. . FINDINGS: The ET tube is in good position. There is situs inversus. There are chronic interstitial changes within the pulmonary parenchyma and minimal effusion at the ri ght lung base. There are atelectatic changes at the right lung base as well. These changes are simila r to prior exam. The visualized bony structures are intact. CONCLUSION: Diffuse interstitial prominence stable compared to previous exam. Minimal right basilar effusion unchanged from prior. ET tube in good position. Situs inversus. Electronically signed by: Karl Garcia MD 09/25/2018 2:36 PM EST
[2018-09-25] MEDS ORDERED: Norepinephrine Inj 4 MG/4 ML Ampul ONE (14:48)
[2018-09-25] MEDS: Dexmedetomidine Inj 200 MCG in Sodium Chlor 0.9% Inj 48 ML IV.CONT PRN (15:00)
[2018-09-25 15:10] LABS: Anion Gap 6 meq/L (5-15); Blood Urea Nitrogen 20 mg/dL (7-18); Calcium 7.9 mg/dL (8.5-10.1); Carbon Dioxide 27.4 meq/L (21.0-32.0); Chloride 107 meq/L (98-107); Glomerular Filtration Rate 61 mL/min (>89); Glucose,Random 194 mg/dL (74-106); Potassium 4.1 meq/L (3.5-5.1); Sodium 140 meq/L (136-145)
[2018-09-25 15:14] LABS: Creatine Kinase 54 U/L (39-308)
[2018-09-25] MEDS: Propofol 1000 mg/100 ml Inj 1,000 MG/100 ML BOTTLE IV.CONT PRN ×2 (16:30→23:12)
[2018-09-25 16:48] LABS: ABG Base Excess -1.2 mmol/L (-2-2); ABG PCO2 43 mmHg (38-42); ABG PO2 303 mmHG (61-120)
--- NOTE | 2018-09-25 17:35 | P.CONCC ---
History of Present Illness Service: Critical care medicine Consult date: 09/25/18 Reason for Consult: Acute respiratory insufficiency Primary Care Provider: No Primary Care Physician Chief Complaint: Mechanical ventilation History of Present Illness: This 58-year-old gentleman developed an infection and a ventral incision and required surgical drainage today. His history is noteworthy in that he has had a productive cough for several weeks now. Following the abdominal wall procedure today he continued with problems associated with hypertension and difficulty weaning from mechanical ventilation. Due to his preoperative respiratory problems this is not surprising. I have seen him in the PACU following his procedure where he is febrile but well perfused. Review of Systems Unobtainable, patient is sedated and on mechanical ventilation. [facility] - History History Provided By: Patient - Medical History Medical History: Medical History (Last Updated 09/21/18 @ 13:19 by Janae Graham MD) COPD (chronic obstructive pulmonary disease) Colon cancer Diabetes mellitus Diverticulosis HTN (hypertension) TIA (transient ischemic attack) Umbilical hernia - Surgical History Surgical History: Surgical History (Last Updated 09/21/18 @ 13:19 by Janae Graham MD) History of hernia repair History of partial colectomy - Tobacco History Second Hand Smoke Exposure: No Tobacco Use In Past 30 Days: Yes Smoking Status: Current every day smoker Tobacco Type: Cigarettes - Alcohol History How Often Do You Have a Drink Containing Alcohol: 2 to 4 times a month - Substance Use History Substance History: No History of Abuse - Travel History Recent Travel in the [place] Within the Last 8 Weeks: No Recent Travel Out of the Country Within the Last 8 Weeks: No - Immunization History Tetanus Immunization: <5 Years Hx Influenza Vaccine This Season: No Medications and Allergies Active Medications: Active Medications Albuterol (Duoneb Neb (Prn)) 1 ampul NEB Q2HR NEB PRN PRN Reason: SHORTNESS OF BREATH Last Admin: 09/24/18 01:37 Dose: 1 ampul Aspirin (Aspirin) 325 mg PO DAILY [facility] Last Admin: 09/25/18 08:57 Dose: 325 mg Carvedilol (Coreg) 12.5 mg PO BID [facility] Last Admin: 09/25/18 08:57 Dose: 12.5 mg Chlorhexidine Gluconate (Peridex 0.12% Oral Kit) 15 ml OROPHARYNG BID@0800, 2000 [facility] Dextrose (D50w Vial) 50 ml IV.PUSH UNSCH PRN PRN Reason: PER HYPOGLYCEMIA PROTOCOL Diltiazem HCl (Cardizem) 60 mg PO QID [facility] Last Admin: 09/25/18 08:57 Dose: 60 mg Enoxaparin Sodium (Lovenox Inj) 100 mg SQ Q12H [facility] Last Admin: 09/23/18 22:32 Dose: 100 mg Glucagon (Glucagon Inj) 1 mg OTHER PRN PRN PRN Reason: for Hypoglycemia Protocol Hydromorphone HCl (Dilaudid Pf Inj) 1 mg IV.PUSH Q4H PRN PRN Reason: BREAKTHROUGH PAIN Last Admin: 09/25/18 05:40 Dose: 1 mg Piperacillin/Tazobactam/Dextrose (Zosyn 3.375 Gm Premix) 50 mls @ 100 mls/hr IV.SIG Q6H [facility]STIN Last Infusion: 09/25/18 13:03 Dose: Infused Vancomycin HCl 1,500 mg/ (Sodium Chloride) 515 mls @ 250 mls/hr IV.SIG Q12H [facility] Last Admin: 09/25/18 12:36 Dose: 250 mls/hr Dexmedetomidine HCl 200 mcg/ (Sodium Chloride) 50 mls @ 6.05 mls/hr IV.CONT TITRATE PRN; Protocol PRN Reason: Per Protocol Propofol (Diprivan 1000 Mg/100 Ml Inj) 1,000 mg in 100 mls @ 36.33 mls/hr IV.CONT TITRATE PRN; Protocol PRN Reason: Per Protocol Norepinephrine Bitartrate (Levophed-Dextrose 4 Mg/250 Ml Drip) 4 mg in 250 mls @ 7.5 mls/hr IV.SIG TITRATE PRN; Protocol PRN Reason: Per Protocol Insulin Aspart (Novolog Insulin Correctional Sugar Inj) 0 unit SQ ACHS AND 3AM [facility]STIN; Protocol Last Admin: 09/25/18 09:01 Dose: Not Given Ipratropium Marston (Atrovent Neb) 0.5 mg NEB Q4HR NEB PRN PRN Reason: sob/wheezing Last Admin: 09/24/18 21:57 Dose: 0.5 mg Miscellaneous Information ([facility] Ordered Lab Info) 0 each OTHER ONCE ONE Stop: 09/26/18 12:46 Miscellaneous Medication () 1 each OROPHARYNG 0000,0400,1200,1600 [facility] Naloxone HCl (Narcan Inj) 0.4 mg IV.PUSH UNSCH PRN PRN Reason: SEE LABEL COMMENTS Nicotine (Habitrol 21 Mg Patch.24 Hr) 1 patch T-DERMAL DAILY [facility] Last Admin: 09/25/18 08:59 Dose: Not Given Oxycodone/Acetaminophen (Percocet 10/325 Mg) 1 tab PO Q4H PRN PRN Reason: pain 6-10 Last Admin: 09/25/18 09:27 Dose: 1 tab Oxycodone/Acetaminophen (Percocet 5/325 Mg) 1 tab PO Q4H PRN PRN Reason: pain 1-5 Patch Removal (Remove Old Patch) 1 each T-DERMAL DAILY [facility] Last Admin: 09/25/18 08:59 Dose: Not Given Pharmacy Profile Note (Vancomycin Consult Pharmacy) 1 each OTHER UNSCH PRN PRN Reason: Pharmacy to dose Ramipril (Altace) 5 mg PO DAILY [facility] Last Admin: 09/25/18 08:57 Dose: 5 mg Senna/Docusate Sodium (Raven-Colace) 1 tab PO BID PRN PRN Reason: CONSTIPATION Sodium Chloride (Ns Flush) 2 ml IV.FLUSH PRN PRN PRN Reason: FLUSH AFTER USING IV ACCESS Sodium Chloride (Ns Flush) 2 ml IV.FLUSH BID [facility] Last Admin: 09/25/18 09:01 Dose: 2 ml Spironolactone (Aldactone) 50 mg PO BID@0900,1800 [facility] Last Admin: 09/25/18 08:57 Dose: 50 mg Terbutaline Sulfate (Brethine Inj) 1 mg SQ UNSCH PRN PRN Reason: For Extravasation Allergies Allergy/AdvReac Type Severity Reaction Status Date / Time No Known Allergies Allergy Verified 09/19/18 17:25 Home Medications Medication Instructions Recorded Confirmed Type aspirin 325 mg PO DAILY 09/19/18 09/19/18 History Physical Exam Vital signs: Vital Signs 09/24/18 20:00 09/24/18 20:30 09/24/18 21:59 Temperature 97.9 F Pulse Rate 88 70 Respiratory Rate 22 20 Blood Pressure 154/81 H Pulse Oximetry 91 L 95 92 L 09/25/18 00:00 09/25/18 04:00 09/25/18 07:35 Temperature 98 F 98.4 F Pulse Rate 60 78 Respiratory Rate 22 22 18 Blood Pressure 119/79 127/66 Pulse Oximetry 93 L 93 L 09/25/18 08:00 09/25/18 12:00 09/25/18 13:50 Temperature 97.3 F L Pulse Rate 79 83 Respiratory Rate 20 21 Blood Pressure 133/76 Pulse Oximetry 92 L 92 L 09/25/18 16:32 Temperature Pulse Rate Respiratory Rate 19 Blood Pressure Pulse Oximetry 93 L Intake & Output 09/24/18 09/25/18 09/25/18 18:59 06:59 18:59 Intake Total 605 / 605 2140 / 2140 1050 / 1050 Output Total 1795 / 1795 1350 / 1350 250 / 250 Balance -1190 / -1190 790 / 790 800 / 800 Weight 121.1 kg Intake: IV 365 / 365 900 / 900 50 / 50 Zosyn 3.375 GM Premix 50 ML @ 50 / 50 150 / 150 50 / 50 100 mls/hr IV.SIG Q6H [facility]ST[facility] Rx#: [id number] Vancomycin Inj 1,500 MG In NS 315 / 315 750 / 750 Inj 500 ML @ 250 mls/hr IV.SIG Q12H [facility]STIN Rx#:[id number] Oral 240 / 240 1240 / 1240 Anesthesia Amount 1000 / 1000 Output: Urine 1795 / 1795 1350 / 1350 Estimated Blood Loss 250 / 250 Other: # Voids 2 Date of Last Bowel Movement 09/24/18 09/24/18 # Bowel Movements 1 Narrative: Exam Narrative: GENERAL: Sedated, intubated. SKIN: Focused skin assessment warm/moist. HEAD: Atraumatic. Normocephalic. EYES: Pupils equal and round. No scleral icterus. No injection or drainage. ENT: No nasal bleeding or discharge. Mucous membranes pink and moist. Orotracheal intubation. NECK: Trachea midline. No JVD. CARDIOVASCULAR: Normal S1-S2, regular rate and rhythm, neck veins are not distended. RESPIRATORY: Clear to auscultation aside from a few mobile secretions. No wheezes or crackles. Breath sounds equal bilaterally. GASTROINTESTINAL: Abdomen soft, large. Postsurgical with dry dressing intact. Bowel sounds are present. MUSCULOSKELETAL: No obvious deformities. No clubbing. No cyanosis. No edema. Warm and flushed. NEUROLOGICAL: Heavily sedated, intubated. Withdraws 4 limbs to stimulation. Assessment and Plan - Problem List (1) Acute postoperative respiratory insufficiency Code(s): J95.89 - Other postprocedural complications and disorders of respiratory system, not elsewhere classified Status: Acute (2) Cellulitis of abdominal wall Code(s): L03.311 - Cellulitis of abdominal wall Status: Acute (3) COPD (chronic obstructive pulmonary disease) Code(s): J44.9 - Chronic obstructive pulmonary disease, unspecified Status: Acute (4) Cardiomyopathy Code(s): I42.9 - Cardiomyopathy, unspecified Status: Acute (5) Situs inversus totalis Code(s): Q89.3 - Situs inversus Status: Acute (6) Subcutaneous abscess Code(s): L02.91 - Cutaneous abscess, unspecified Status: Acute (7) Atrial fibrillation Code(s): I48.91 - Unspecified atrial fibrillation Status: Acute - Assessment and Plan Plan: Plan: 1. Mechanical ventilation, PRVC mode 2. Place NG tube to continue outpatient medication 3. Continue Coreg, Altace, diltiazem as ordered. 4. Supplemental morphine for pain. 5. Propofol sedation for vent synchrony. 6. Continue to hold Lovenox anticoagulation until okay with surgeon 7. Keep nasogastric tube to low intermittent suction when not delivering medications 8. Ventilator weaning during the night. Overall impression: This gentleman is critically ill following an abdominal wall procedure for abscess. His care is complicated by postoperative respiratory insufficiency and underlying dilated cardiomyopathy with left ventricular ejection fraction of 40%. His radiographic interpretation is complicated by total situs inversus. Critical care time 45 minutes aside from procedures. (6) Subcutaneous abscess Qualifiers: Site of cutaneous abscess: trunk Site of cutaneous abscess of trunk: abdominal wall Qualified Code(s): L02.211 - Cutaneous abscess of abdominal wall (7) Atrial fibrillation Qualifiers: Atrial fibrillation type: permanent Qualified Code(s): I48.2 - Chronic atrial fibrillation
[2018-09-25] MEDS: Oral Hygiene Kit OROPHARYNG SCH ×2 (20:20→23:12)
[2018-09-25] MEDS: Chlorhexidine 0.12% Oral Kit 15 ML UDC OROPHARYNG SCH (22:35)
[2018-09-25 22:46] LABS: Creatine Kinase 46 U/L (39-308)
[2018-09-26] MEDS: Propofol 1000 mg/100 ml Inj 1,000 MG/100 ML BOTTLE IV.CONT PRN ×4 (01:28→10:33)
[2018-09-26] MEDS: Vancomycin Inj 1,500 MG in Sodium Chlor 0.9% Inj 500 ML IV.SIG SCH ×2 (02:34→14:09)
[2018-09-26] MEDS: Insulin NovoLOG Aspart Correctional Sugar Inj SQ SCH ×5 (03:31→21:18)
[2018-09-26] MEDS: Oral Hygiene Kit OROPHARYNG SCH ×3 (03:31→17:28)
[2018-09-26 03:56] LABS: Glomerular Filtration Rate 60 mL/min (>89)
[2018-09-26 04:00] LABS: Creatine Kinase 40 U/L (39-308)
[2018-09-26] MEDS: Dexmedetomidine Inj 200 MCG in Sodium Chlor 0.9% Inj 48 ML IV.CONT PRN ×3 (04:38→11:58)
--- NOTE | 2018-09-26 04:52 | XR ---
EXAM DATE: 09/26/2018 4:39 AM EST AGE/SEX: 58 years / Male INDICATIONS: Shortness of breath. CLINICAL DATA: This is the patient's subsequent encounter. Patient reports that signs and symptoms h ave been present for 3 days and indicates a pain score of Nonresponsive. MEDICAL/SURGICAL HISTORY: . Chronic obstructive pulmonary disease. Diabetes mellitus type II. H ypertension. . Colon resection. Hernia repair [place] [facility] [place]. . 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 Endotracheal tube in good position. NG seen traversing the esophagus. Bilate ral mostly basilar airspace consolidation. No pneumothorax. CONCLUSION: Bilateral mostly basilar airspace disease similar to September 25. Electronically signed by: Jigar Kang MD 09/26/2018 4:50 AM EST
[2018-09-26] MEDS: Piperacil/Tazo 3.375 GM Premix 50 ML IV.SIG SCH ×3 (05:21→17:34)
[2018-09-26 06:10] LABS: Anion Gap 8 meq/L (5-15); Blood Urea Nitrogen 18 mg/dL (7-18); Calcium 7.9 mg/dL (8.5-10.1); Carbon Dioxide 27.4 meq/L (21.0-32.0); Chloride 107 meq/L (98-107); Glucose,Random 107 mg/dL (74-106); Potassium 3.8 meq/L (3.5-5.1); Sodium 142 meq/L (136-145)
[2018-09-26 06:53] LABS: Hematocrit 37.7 % (39.0-51.0); Mean Corpuscular HGB Conc 34.6 % (32.0-36.0); Mean Corpuscular Hemoglobin 30.3 pg (27.0-34.0); Mean Corpuscular Volume 87.8 fL (80.0-100.0); Mean Platelet Volume 8.1 fL (7.0-11.0); Platelet Count 189 th/mm3 (150-450); Red Blood Count 4.29 mil/mm3 (4.50-5.90); Red Cell Distribution Width 14.2 % (11.6-17.2); White Blood Count 8.2 th/mm3 (4.0-11.0)
[2018-09-26] MEDS: Chlorhexidine 0.12% Oral Kit 15 ML UDC OROPHARYNG SCH ×2 (08:35→20:09)
[2018-09-26] MEDS: Carvedilol 12.5 MG Tablet PO SCH ×2 (09:29→20:09)
[2018-09-26] MEDS: dilTIAZem 60 MG Tablet PO SCH ×4 (09:31→20:09)
[2018-09-26] MEDS: Ramipril 5 MG Capsule PO SCH (09:31)
[2018-09-26] MEDS: Aspirin 325 MG Tablet PO SCH (09:39)
--- NOTE | 2018-09-26 10:27 | P.PNID ---
Subjective Remarks: Patient is a 58-year-old male, presented to the hospital complaining of abdominal pain, swelling and redness. Patient has had multiple hernia repairs in the past. On reviewing his records it looks like he has had a chronic intraperitoneal fluid collection right where his hernia mesh is located. It had been aspirated in the past, and it looks like the last one was done in January 2018, and cultures came back negative. Patient stated he has had an episode of abdominal wall cellulitis, may be about 6 months ago, and he was given an oral antibiotics with resolution of the redness. The last abdominal surgery he has had was back in May of last year and at that time he was diagnosed to have a colon cancer and he underwent exploratory laparotomy, lysis of adhesions, right sided colectomy, and I believe hernia surgery. He has received chemotherapy, and the last time he had chemo was about 6 months ago. His current problems started about 5 days ago when he noted redness on his anterior abdominal wall. In the last 3 days, he had noted a focal area of swelling which apparently he has not had in the past. He has not had any fever chills or sweats. He has chronic nausea but no vomiting. Denies any diarrhea. Has not had any respiratory complaint or any urinary complaint. Patient has been admitted with a diagnosis of abdominal wall cellulitis. He had CT of the abdomen and pelvis which is showing a stable size of the intraperitoneal fluid collection that has been there and close to his hernia mesh, but there is a new superficial fluid collection that was also noted. His WBC is normal, and he has been afebrile. He is currently on vancomycin and Zosyn. Surgery is evaluating the patient. Infectious disease consultation has been requested to assist with evaluation and treatment of abdominal cellulitis, and possibly an infected fluid collection Notes reviewed Had surgery yesterday - remains on the vent BP ok Fevers overnight Aspiration of superficial fluid last week negative Intraop C/S pending Antibiotics: Vancomycin Zosyn Past Medical History: COPD (chronic obstructive pulmonary disease) Colon cancer Diabetes mellitus Diverticulosis HTN (hypertension) TIA (transient ischemic attack) Umbilical hernia History of hernia repair Allergies/Adverse Reactions: Allergies No Known Allergies Allergy (Verified 09/19/18 17:25) Objective Vital Signs 09/25/18 12:00 09/25/18 13:45 09/25/18 13:50 Temperature 93.1 F L Pulse Rate 83 95 H Respiratory Rate 24 21 Blood Pressure 103/64 Pulse Oximetry 85 L 92 L 09/25/18 14:00 09/25/18 14:15 09/25/18 14:30 Temperature 97.1 F L Pulse Rate 100 H 91 H 96 H Respiratory Rate 25 H 25 H 22 Blood Pressure 86/62 L 83/63 L 72/49 L Pulse Oximetry 89 L 87 L 92 L 09/25/18 14:45 09/25/18 15:00 09/25/18 15:15 Temperature Pulse Rate 90 88 83 Respiratory Rate 22 20 20 Blood Pressure 72/43 L 75/49 L 80/51 L Pulse Oximetry 95 92 L 95 09/25/18 15:30 09/25/18 15:45 09/25/18 16:00 Temperature Pulse Rate 83 79 91 H Respiratory Rate 20 19 23 Blood Pressure 87/63 L 90/60 L 114/78 Pulse Oximetry 98 99 98 09/25/18 16:15 09/25/18 16:30 09/25/18 16:32 Temperature Pulse Rate 81 79 Respiratory Rate 18 18 19 Blood Pressure 105/67 98/68 L Pulse Oximetry 99 99 93 L 09/25/18 16:45 09/25/18 17:00 09/25/18 17:15 Temperature Pulse Rate 82 89 84 Respiratory Rate 18 21 18 Blood Pressure 107/67 139/96 H 140/77 Pulse Oximetry 100 98 97 09/25/18 17:30 09/25/18 17:45 09/25/18 18:00 Temperature Pulse Rate 89 92 H 91 H Respiratory Rate 16 19 19 Blood Pressure 127/72 102/64 101/58 L Pulse Oximetry 99 98 98 09/25/18 18:15 09/25/18 18:30 09/25/18 18:45 Temperature Pulse Rate 91 H 94 H 94 H Respiratory Rate 19 18 18 Blood Pressure 97/53 L 101/55 L 97/50 L Pulse Oximetry 99 99 99 09/25/18 19:00 09/25/18 19:15 09/25/18 19:30 Temperature Pulse Rate 86 95 H 92 H Respiratory Rate 18 18 18 Blood Pressure 97/51 L 94/54 L 86/53 L Pulse Oximetry 99 99 99 09/25/18 19:45 09/25/18 20:00 09/25/18 20:15 Temperature Pulse Rate 92 H 87 90 Respiratory Rate 18 18 18 Blood Pressure 106/66 95/52 L 100/59 L Pulse Oximetry 99 99 99 09/25/18 20:30 09/25/18 20:45 09/25/18 21:00 Temperature Pulse Rate 85 83 84 Respiratory Rate 18 18 18 Blood Pressure 88/62 L 98/65 L 105/62 Pulse Oximetry 99 99 99 09/25/18 21:15 09/25/18 21:20 09/25/18 21:49 Temperature 98.5 F Pulse Rate 87 86 Respiratory Rate 18 19 Blood Pressure 120/70 108/76 Pulse Oximetry 99 99 98 09/25/18 22:00 09/25/18 22:04 09/25/18 22:19 Temperature Pulse Rate 87 88 91 H Respiratory Rate 19 19 18 Blood Pressure 106/69 122/70 Pulse Oximetry 98 98 98 09/25/18 22:29 09/25/18 22:34 09/25/18 22:44 Temperature Pulse Rate 90 95 H 92 H Respiratory Rate 18 18 18 Blood Pressure 125/83 117/77 92/60 L Pulse Oximetry 97 95 97 09/25/18 22:49 09/25/18 23:00 09/25/18 23:04 Temperature Pulse Rate 89 93 H 91 H Respiratory Rate 19 18 18 Blood Pressure 105/64 110/61 Pulse Oximetry 97 97 97 09/25/18 23:19 09/25/18 23:34 09/25/18 23:42 Temperature Pulse Rate 92 H 93 H Respiratory Rate 19 19 18 Blood Pressure 108/61 100/58 L Pulse Oximetry 97 98 96 09/26/18 00:00 09/26/18 00:32 09/26/18 00:45 Temperature Pulse Rate 94 H 94 H 97 H Respiratory Rate 19 19 21 Blood Pressure 105/60 86/54 L Pulse Oximetry 98 98 96 09/26/18 00:46 09/26/18 00:51 09/26/18 01:00 Temperature Pulse Rate 99 H 96 H 95 H Respiratory Rate 20 20 20 Blood Pressure 86/51 L 114/58 L 96/57 L Pulse Oximetry 96 97 97 09/26/18 01:15 09/26/18 01:17 09/26/18 01:30 Temperature Pulse Rate 93 H 93 H 93 H Respiratory Rate 20 19 Blood Pressure 98/62 L 98/62 L 101/58 L Pulse Oximetry 97 97 09/26/18 01:45 09/26/18 02:00 09/26/18 02:03 Temperature Pulse Rate 95 H 94 H 95 H Respiratory Rate 21 20 20 Blood Pressure 110/59 L 109/60 Pulse Oximetry 97 97 97 09/26/18 02:15 09/26/18 02:30 09/26/18 02:45 Temperature Pulse Rate 97 H 103 H 98 H Respiratory Rate 20 24 21 Blood Pressure 99/67 L 100/70 118/64 Pulse Oximetry 97 97 97 09/26/18 03:00 09/26/18 03:15 09/26/18 03:30 Temperature Pulse Rate 100 H 98 H 94 H Respiratory Rate 21 20 20 Blood Pressure 114/62 125/71 114/69 Pulse Oximetry 97 97 98 09/26/18 03:45 09/26/18 03:59 09/26/18 04:00 Temperature 100.2 F H Pulse Rate 102 H 101 H Respiratory Rate 22 26 H 24 Blood Pressure 140/83 134/73 Pulse Oximetry 98 95 91 L 09/26/18 08:37 Temperature Pulse Rate Respiratory Rate 18 Blood Pressure Pulse Oximetry 97 Intake & Output 09/25/18 09/26/18 09/26/18 18:59 06:59 18:59 Intake Total 1615 / 1615 965 / 965 230 / 230 Output Total 1750 / 1750 2425 / 2425 Balance -135 / -135 -1460 / -1460 230 / 230 Weight 124.6 kg Intake: IV 615 / 615 965 / 965 150 / 150 Precedex Inj 200 MCG In NS Inj 50 / 50 50 / 50 48 ML @ 0.2 MCG/KG/HR 6.05 mls/ hr IV.CONT TITRATE PRN Rx#: [id number] Diprivan 1000 mg/100 ml Inj 1, 300 / 300 100 / 100 000 mg In 100 ml @ 50 MCG/KG/ MIN 36.33 mls/hr IV.CONT TITRATE PRN Rx#:[id number] Zosyn 3.375 GM Premix 50 ML @ 100 / 100 100 / 100 100 mls/hr IV.SIG Q6H CHRISTIN Rx#: [id number] Vancomycin Inj 1,500 MG In NS 515 / 515 515 / 515 Inj 500 ML @ 250 mls/hr IV.SIG Q12H CHRISTIN Rx#:[id number] Water Bolus Amount 80 / 80 Anesthesia Amount 1000 / 1000 Output: Estimated Blood Loss 250 / 250 Urine Amount (Catheter) 1500 / 1500 2099 / 2099 Indwelling Urethral Catheter 1500 / 1500 2099 / 2099 Wound Vac Amount 325 / 325 Midline Upper Umbilicus 325 / 325 Other: Mode Setting Midline Upper Umbilicus Continuous Continuous Date of Last Bowel Movement 09/24/18 09/24/18 09/25/18 12:53 Abscess - Abdominal Gram Stain - Final 09/25/18 12:53 Abscess - Abdominal Wound Culture - Pending 09/25/18 12:53 Abscess - Abdominal Gram Stain - Final 09/25/18 12:53 Abscess - Abdominal Wound Culture - Pending 09/25/18 12:53 Abscess - Abdominal Fungal Smear - Final No fungal elements seen 09/25/18 12:53 Abscess - Abdominal Fungal Culture - Pending 09/25/18 12:53 Abscess - Abdominal Acid Fast Bacilli Smear - Pending 09/25/18 12:53 Abscess - Abdominal Mycobacterial Culture - Pending 09/25/18 12:53 Abscess - Abdominal Fungal Smear - Pending 09/25/18 12:53 Abscess - Abdominal Fungal Culture - Pending 09/25/18 12:53 Abscess - Abdominal Acid Fast Bacilli Smear - Pending 09/25/18 12:53 Abscess - Abdominal Mycobacterial Culture - Pending 09/21/18 15:30 Fluid - Other Gram Stain - Final 09/21/18 15:30 Fluid - Other Body Fluid Culture - Final No growth in 72 hours (aerobically and anaerobically ) 09/19/18 17:30 Blood - Peripheral Aerobic Blood Culture - Final No growth in 5 days 09/19/18 17:30 Blood - Peripheral Anaerobic Blood Culture - Final No growth in 5 days 09/19/18 17:38 Blood - Peripheral Aerobic Blood Culture - Final No growth in 5 days 09/19/18 17:38 Blood - Peripheral Anaerobic Blood Culture - Final No growth in 5 days Lab - Hematology Results 09/26/18 06:05 WBC 8.2 RBC 4.29 L Hgb 13.0 Hct 37.7 L MCV 87.8 MCH 30.3 MCHC 34.6 RDW 14.2 Plt Count 189 MPV 8.1 Lab - Chemistry Results 09/24/18 09/24/18 09/24/18 05:35 12:49 15:57 Sodium Potassium Chloride Carbon Dioxide Anion Gap BUN Creatinine Estimated GFR POC Glucose 117 H 116 H Random Glucose Hemoglobin A1c 6.1 H Calcium Total Creatine Kinase Troponin I B-Natriuretic Peptide 09/24/18 09/25/18 09/25/18 21:09 03:37 05:00 Sodium 141 Potassium 3.9 Chloride 107 Carbon Dioxide 26.5 Anion Gap 8 BUN 22 H Creatinine 1.10 Estimated GFR 69 L POC Glucose 212 H 99 Random Glucose 88 Hemoglobin A1c Calcium 8.6 Total Creatine Kinase Troponin I B-Natriuretic Peptide 09/25/18 09/25/18 09/25/18 05:00 09:00 13:54 Sodium 140 Potassium 4.1 Chloride 107 Carbon Dioxide 27.4 Anion Gap 6 BUN 20 H Creatinine 1.23 Estimated GFR 61 L POC Glucose 121 H Random Glucose 194 H D Hemoglobin A1c Calcium 7.9 L Total Creatine Kinase 54 Troponin I Less than 0.02 L B-Natriuretic Peptide 551 H 09/25/18 09/25/18 09/25/18 13:54 17:26 21:30 Sodium Cancelled Potassium Cancelled Chloride Cancelled Carbon Dioxide Cancelled Anion Gap Cancelled BUN Cancelled Creatinine Cancelled Estimated GFR Cancelled POC Glucose 112 H Random Glucose Cancelled Hemoglobin A1c Calcium Cancelled Total Creatine Kinase 46 Troponin I Less than 0.02 L B-Natriuretic Peptide 09/25/18 09/26/18 09/26/18 21:48 03:20 03:20 Sodium 142 Potassium 3.8 Chloride 107 Carbon Dioxide 27.4 Anion Gap 8 BUN 18 Creatinine 1.25 Estimated GFR 60 L POC Glucose 111 H Random Glucose 107 H Hemoglobin A1c Calcium 7.9 L Total Creatine Kinase 40 Troponin I Less than 0.02 L B-Natriuretic Peptide 371 H 09/26/18 09/26/18 03:23 09:34 Sodium Potassium Chloride Carbon Dioxide Anion Gap BUN Creatinine Estimated GFR POC Glucose 107 126 H Random Glucose Hemoglobin A1c Calcium Total Creatine Kinase Troponin I B-Natriuretic Peptide Imaging: ITS Impressions Abdomen/Pelvis CT 09/19/18 17:31 CONCLUSION: 1. Previous ventral hernia repair. Associated large, chronic and nonindurated appearing intraperitoneal fluid collection is without appreciable change but there is a new, small and indurated appearing subcutaneous fluid collection at the umbilicus. Just above the subcutaneous fluid collection is a new area of herniated fat. 2. Enlarged and fatty infiltrated liver, similar to before. 3. No acute abnormalities are seen within the abdominal or pelvic cavity. Patient has situs inversus. There is a moderate size hiatal hernia. Chest CTA 09/19/18 17:31 CONCLUSION: 1. No pulmonary embolus. 2. Very mild dependent atelectasis of both lungs. No pneumonia, effusion or pneumothorax. 3. Mild to moderate emphysema. 4. Coronary artery calcification. 5. Moderate size hiatal hernia. 6. Situs inversus. Needle Aspiration US 09/21/18 00:00 CONCLUSION: 1. Uncomplicated ultrasound-guided aspiration of superficial subcutaneous periumbilical fluid collection, as above. Abdomen X-Ray 09/24/18 00:00 CONCLUSION: Nonspecific intestinal gas pattern Chest X-Ray 09/26/18 06:00 CONCLUSION: Bilateral mostly basilar airspace disease similar to September 25. Physical Exam: GENERAL: Sedated on the vent, not in respiratory distress. SKIN: Cool and dry. No generalized rash, no ecchymoses and no evidence of embolic lesions. HEAD: Atraumatic. Normocephalic. No temporal wasting, or tenderness. EYES: Oxly conjunctiva. No petechia or hemorrhage. Pupils equal, round and reactive to light. Extraocular movements full and intact. No scleral icterus. No injection or drainage. EARS, NOSE AND THROAT: Nose without bleeding or purulent nasal discharge. Orally intubated. NECK: Trachea midline. Supple and not tender, no meningeal signs CARDIOVASCULAR: Regular rate and rhythm. No murmurs, rubs or gallops heard RESPIRATORY: Clear to auscultation. Breath sounds equal bilaterally. No rales , wheezing or rhonchi ABDOMEN: Soft, obese, has a wound vac sponge in place, redness better. Bowel sounds present and normoactive. No guarding. No rebound. EXTREMITIES: No clubbing, cyanosis, or edema. NEURO: Sedated PSYCHIATRIC: Unable to assess LINE: No evidence of infection Assessment and Plan - Plan Impression Abdominal wall cellulitis - has superficial fluid collection, ?infected Chronic fluid collection intraperitoneal close to his hernia mesh S/P multiple hernia repair Hx colon CA S/P R hemicolectomy, S/P chemo COPD Obesity Fevers Respiratory failure Recommendation Continue IV Vanco Continue Zosyn Follow new C/S Follow temps 2 BC today Monitor progress D/W RN
[2018-09-26] MEDS: Spironolactone 50 MG Tablet PO SCH ×2 (11:43→17:34)
[2018-09-26 12:08] LABS: ABG Base Excess 3.1 mmol/L (-2-2); ABG PCO2 41 mmHg (38-42); ABG PO2 96 mmHg (61-120)
--- NOTE | 2018-09-26 12:37 | ECG ---
Date Performed: 09/25/2018 Time Performed: 14:13:37 PTAGE: 58 years EKG: ATRIAL FIBRILLATION ANTEROLATERAL MYOCARDIAL INFARCTION , PROBABLY RECENT PREVIOUS TRACING : 09/19/2018 17.34 DOCTOR: Shukri Roach Interpretating Date/Time 09/26/2018 12:35:38
[2018-09-26] MEDS: HYDROmorphone PF Inj 1 MG/ML Ampul IV.PUSH PRN ×3 (12:40→21:17)
[2018-09-26] MEDS ORDERED: Pharmacy Ordered Lab Info OTHER ONE (12:45)
--- NOTE | 2018-09-26 14:32 | P.PNCA ---
Subjective Interval history: alert in nad Medications and Allergies Active Medications: Active Medications Albuterol (Duoneb Neb (Prn)) 1 ampul NEB Q2HR NEB PRN PRN Reason: SHORTNESS OF BREATH Last Admin: 09/24/18 01:37 Dose: 1 ampul Aspirin (Aspirin) 325 mg PO DAILY [facility] Last Admin: 09/26/18 09:39 Dose: 325 mg Carvedilol (Coreg) 12.5 mg PO BID [facility] Last Admin: 09/26/18 09:29 Dose: 12.5 mg Chlorhexidine Gluconate (Peridex 0.12% Oral Kit) 15 ml OROPHARYNG BID@0800, 2000 [facility] Last Admin: 09/26/18 08:35 Dose: 15 ml Dextrose (D50w Vial) 50 ml IV.PUSH UNSCH PRN PRN Reason: PER HYPOGLYCEMIA PROTOCOL Diltiazem HCl (Cardizem) 60 mg PO QID [facility] Last Admin: 09/26/18 12:19 Dose: 60 mg Enoxaparin Sodium (Lovenox Inj) 100 mg SQ Q12H [facility] Last Admin: 09/23/18 22:32 Dose: 100 mg Glucagon (Glucagon Inj) 1 mg OTHER PRN PRN PRN Reason: for Hypoglycemia Protocol Hydromorphone HCl (Dilaudid Pf Inj) 1 mg IV.PUSH Q4H PRN PRN Reason: BREAKTHROUGH PAIN Last Admin: 09/26/18 12:40 Dose: 1 mg Piperacillin/Tazobactam/Dextrose (Zosyn 3.375 Gm Premix) 50 mls @ 100 mls/hr IV.SIG Q6H [facility] Last Admin: 09/26/18 11:57 Dose: 100 mls/hr Vancomycin HCl 1,500 mg/ (Sodium Chloride) 515 mls @ 250 mls/hr IV.SIG Q12H [facility] Last Admin: 09/26/18 14:09 Dose: 250 mls/hr Dexmedetomidine HCl 200 mcg/ (Sodium Chloride) 50 mls @ 6.05 mls/hr IV.CONT TITRATE PRN; Protocol PRN Reason: Per Protocol Last Titration: 09/26/18 12:54 Dose: 0.2 mcg/kg/hr, 6.05 mls/hr Propofol (Diprivan 1000 Mg/100 Ml Inj) 1,000 mg in 100 mls @ 36.33 mls/hr IV.CONT TITRATE PRN; Protocol PRN Reason: Per Protocol Last Titration: 09/26/18 11:57 Dose: 0 mcg/kg/min, 0 mls/hr Norepinephrine Bitartrate (Levophed-Dextrose 4 Mg/250 Ml Drip) 4 mg in 250 mls @ 7.5 mls/hr IV.SIG TITRATE PRN; Protocol PRN Reason: Per Protocol Last Titration: 09/26/18 09:20 Dose: 0 mcg/min, 0 mls/hr Insulin Aspart (Novolog Insulin Correctional Sugar Inj) 0 unit SQ ACHS AND 3AM [facility]; Protocol Last Admin: 09/26/18 12:18 Dose: Not Given Ipratropium [place] (Atrovent Neb) 0.5 mg NEB Q4HR NEB PRN PRN Reason: sob/wheezing Last Admin: 09/24/18 21:57 Dose: 0.5 mg Miscellaneous Medication () 1 each OROPHARYNG 0000,0400,1200,1600 [facility] Last Admin: 09/26/18 12:19 Dose: 1 each Naloxone HCl (Narcan Inj) 0.4 mg IV.PUSH UNSCH PRN PRN Reason: SEE LABEL COMMENTS Nicotine (Habitrol 21 Mg Patch.24 Hr) 1 patch T-DERMAL DAILY [facility] Last Admin: 09/26/18 09:29 Dose: 1 patch Oxycodone/Acetaminophen (Percocet 10/325 Mg) 1 tab PO Q4H PRN PRN Reason: pain 6-10 Last Admin: 09/25/18 09:27 Dose: 1 tab Oxycodone/Acetaminophen (Percocet 5/325 Mg) 1 tab PO Q4H PRN PRN Reason: pain 1-5 Last Admin: 09/26/18 14:26 Dose: 1 tab Patch Removal (Remove Old Patch) 1 each T-DERMAL DAILY [facility] Last Admin: 09/26/18 10:16 Dose: Not Given Pharmacy Profile Note (Vancomycin Consult Pharmacy) 1 each OTHER UNSCH PRN PRN Reason: Pharmacy to dose Ramipril (Altace) 5 mg PO DAILY [facility] Last Admin: 09/26/18 09:31 Dose: 5 mg Senna/Docusate Sodium ([place]aven-Colace) 1 tab PO BID PRN PRN Reason: CONSTIPATION Sodium Chloride (Ns Flush) 2 ml IV.FLUSH PRN PRN PRN Reason: FLUSH AFTER USING IV ACCESS Sodium Chloride (Ns Flush) 2 ml IV.FLUSH BID [facility] Last Admin: 09/26/18 08:35 Dose: 2 ml Spironolactone (Aldactone) 50 mg PO BID@0900,1800 [facility] Last Admin: 09/26/18 11:43 Dose: 50 mg Terbutaline Sulfate (Brethine Inj) 1 mg SQ UNSCH PRN PRN Reason: For Extravasation Allergies Allergy/AdvReac Type Severity Reaction Status Date / Time No Known Allergies Allergy Verified 09/19/18 17:25 Home Medications Medication Instructions Recorded Confirmed Type aspirin 325 mg PO DAILY 09/19/18 09/19/18 History Physical Exam Vital signs: Vital Signs 09/25/18 14:45 09/25/18 15:00 09/25/18 15:15 Temperature Pulse Rate 90 88 83 Respiratory Rate 22 20 20 Blood Pressure 72/43 L 75/49 L 80/51 L Pulse Oximetry 95 92 L 95 09/25/18 15:30 09/25/18 15:45 09/25/18 16:00 Temperature Pulse Rate 83 79 91 H Respiratory Rate 20 19 23 Blood Pressure 87/63 L 90/60 L 114/78 Pulse Oximetry 98 99 98 09/25/18 16:15 09/25/18 16:30 09/25/18 16:32 Temperature Pulse Rate 81 79 Respiratory Rate 18 18 19 Blood Pressure 105/67 98/68 L Pulse Oximetry 99 99 93 L 09/25/18 16:45 09/25/18 17:00 09/25/18 17:15 Temperature Pulse Rate 82 89 84 Respiratory Rate 18 21 18 Blood Pressure 107/67 139/96 H 140/77 Pulse Oximetry 100 98 97 09/25/18 17:30 09/25/18 17:45 09/25/18 18:00 Temperature Pulse Rate 89 92 H 91 H Respiratory Rate 16 19 19 Blood Pressure 127/72 102/64 101/58 L Pulse Oximetry 99 98 98 09/25/18 18:15 09/25/18 18:30 09/25/18 18:45 Temperature Pulse Rate 91 H 94 H 94 H Respiratory Rate 19 18 18 Blood Pressure 97/53 L 101/55 L 97/50 L Pulse Oximetry 99 99 99 09/25/18 19:00 09/25/18 19:15 09/25/18 19:30 Temperature Pulse Rate 86 95 H 92 H Respiratory Rate 18 18 18 Blood Pressure 97/51 L 94/54 L 86/53 L Pulse Oximetry 99 99 99 09/25/18 19:45 09/25/18 20:00 09/25/18 20:15 Temperature Pulse Rate 92 H 87 90 Respiratory Rate 18 18 18 Blood Pressure 106/66 95/52 L 100/59 L Pulse Oximetry 99 99 99 09/25/18 20:30 09/25/18 20:45 09/25/18 21:00 Temperature Pulse Rate 85 83 84 Respiratory Rate 18 18 18 Blood Pressure 88/62 L 98/65 L 105/62 Pulse Oximetry 99 99 99 09/25/18 21:15 09/25/18 21:20 09/25/18 21:49 Temperature 98.5 F Pulse Rate 87 86 Respiratory Rate 18 19 Blood Pressure 120/70 108/76 Pulse Oximetry 99 99 98 09/25/18 22:00 09/25/18 22:04 09/25/18 22:19 Temperature Pulse Rate 87 88 91 H Respiratory Rate 19 19 18 Blood Pressure 106/69 122/70 Pulse Oximetry 98 98 98 09/25/18 22:29 09/25/18 22:34 09/25/18 22:44 Temperature Pulse Rate 90 95 H 92 H Respiratory Rate 18 18 18 Blood Pressure 125/83 117/77 92/60 L Pulse Oximetry 97 95 97 09/25/18 22:49 09/25/18 23:00 09/25/18 23:04 Temperature Pulse Rate 89 93 H 91 H Respiratory Rate 19 18 18 Blood Pressure 105/64 110/61 Pulse Oximetry 97 97 97 09/25/18 23:19 09/25/18 23:34 09/25/18 23:42 Temperature Pulse Rate 92 H 93 H Respiratory Rate 19 19 18 Blood Pressure 108/61 100/58 L Pulse Oximetry 97 98 96 09/26/18 00:00 09/26/18 00:32 09/26/18 00:45 Temperature Pulse Rate 94 H 94 H 97 H Respiratory Rate 19 19 21 Blood Pressure 105/60 86/54 L Pulse Oximetry 98 98 96 09/26/18 00:46 09/26/18 00:51 09/26/18 01:00 Temperature Pulse Rate 99 H 96 H 95 H Respiratory Rate 20 20 20 Blood Pressure 86/51 L 114/58 L 96/57 L Pulse Oximetry 96 97 97 09/26/18 01:15 09/26/18 01:17 09/26/18 01:30 Temperature Pulse Rate 93 H 93 H 93 H Respiratory Rate 20 19 Blood Pressure 98/62 L 98/62 L 101/58 L Pulse Oximetry 97 97 09/26/18 01:45 09/26/18 02:00 09/26/18 02:03 Temperature Pulse Rate 95 H 94 H 95 H Respiratory Rate 21 20 20 Blood Pressure 110/59 L 109/60 Pulse Oximetry 97 97 97 09/26/18 02:15 09/26/18 02:30 09/26/18 02:45 Temperature Pulse Rate 97 H 103 H 98 H Respiratory Rate 20 24 21 Blood Pressure 99/67 L 100/70 118/64 Pulse Oximetry 97 97 97 09/26/18 03:00 09/26/18 03:15 09/26/18 03:30 Temperature Pulse Rate 100 H 98 H 94 H Respiratory Rate 21 20 20 Blood Pressure 114/62 125/71 114/69 Pulse Oximetry 97 97 98 09/26/18 03:45 09/26/18 03:59 09/26/18 04:00 Temperature 100.2 F H Pulse Rate 102 H 101 H Respiratory Rate 22 26 H 24 Blood Pressure 140/83 134/73 Pulse Oximetry 98 95 91 L 09/26/18 07:00 09/26/18 07:15 09/26/18 07:30 Temperature Pulse Rate 102 H 99 H 101 H Respiratory Rate 19 19 22 Blood Pressure 123/97 H 116/84 109/74 Pulse Oximetry 99 98 97 09/26/18 07:45 09/26/18 08:00 09/26/18 08:15 Temperature 99.3 F Pulse Rate 102 H 100 H 96 H Respiratory Rate 19 18 18 Blood Pressure 118/87 128/80 111/88 Pulse Oximetry 98 98 98 09/26/18 08:30 09/26/18 08:37 09/26/18 08:45 Temperature Pulse Rate 97 H 68 Respiratory Rate 18 18 21 Blood Pressure 116/79 122/73 Pulse Oximetry 98 97 97 09/26/18 09:00 09/26/18 09:15 09/26/18 09:30 Temperature Pulse Rate 69 68 68 Respiratory Rate 24 22 23 Blood Pressure 116/70 110/68 107/65 Pulse Oximetry 95 94 L 95 09/26/18 09:45 09/26/18 10:00 09/26/18 10:39 Temperature Pulse Rate 73 68 Respiratory Rate 31 H 21 26 H Blood Pressure 110/67 112/67 Pulse Oximetry 94 L 93 L 97 09/26/18 11:24 09/26/18 12:10 09/26/18 12:25 Temperature Pulse Rate Respiratory Rate 25 H Blood Pressure Pulse Oximetry 95 92 L 93 L 09/26/18 14:09 Temperature Pulse Rate Respiratory Rate 23 Blood Pressure Pulse Oximetry Intake & Output 09/25/18 09/26/18 09/26/18 18:59 06:59 18:59 Intake Total 1615 / 1615 965 / 965 380 / 380 Output Total 1750 / 1750 2425 / 2425 Balance -135 / -135 -1460 / -1460 380 / 380 Weight 124.6 kg Intake: IV 615 / 615 965 / 965 250 / 250 Precedex Inj 200 MCG In NS Inj 50 / 50 50 / 50 48 ML @ 0.2 MCG/KG/HR 6.05 mls/ hr IV.CONT TITRATE PRN Rx#: [id number] Diprivan 1000 mg/100 ml Inj 1, 300 / 300 200 / 200 000 mg In 100 ml @ 50 MCG/KG/ MIN 36.33 mls/hr IV.CONT TITRATE PRN Rx#:[id number] Zosyn 3.375 GM Premix 50 ML @ 100 / 100 100 / 100 100 mls/hr IV.SIG Q6H [facility] Rx#: [id number] Vancomycin Inj 1,500 MG In NS 515 / 515 515 / 515 Inj 500 ML @ 250 mls/hr IV.SIG Q12H [facility] Rx#:[id number] Water Bolus Amount 130 / 130 Anesthesia Amount 1000 / 1000 Output: Estimated Blood Loss 250 / 250 Urine Amount (Catheter) 1500 / 1500 2100 / 2100 Indwelling Urethral Catheter 1500 / 1500 2100 / 2100 Wound Vac Amount 325 / 325 Midline Upper Umbilicus 325 / 325 Other: Mode Setting Midline Upper [place]mbilicus Continuous Continuous Date of Last Bowel Movement 09/24/18 09/24/18 09/25/18 - Constitutional no acute distress - Routine HEENT Exam Head: Present: normocephalic - Routine Neck Exam Present: supple - Routine Respiratory Exam Present: CTA bilaterally - Routine Cardiovascular Exam Present: S2 - Routine Abdominal Exam Present: soft - Routine Extremities Exam Comments: no noelle - Urinary Catheter Management Indwelling Urethral Catheter Cath placed during this visit: yes Reason for continuing: Hourly intake/output Insertion date: 09/25/18 Results 09/26/18 06:05 09/26/18 03:20 Cardiac Enzymes 09/25/18 09/25/18 09/25/18 Range/Units 05:00 13:54 21:30 Troponin I Less than 0.02 L Less than 0.02 L (0.02-0.05) ng/mL B-Natriuretic Peptide 551 H (0-100) pg/mL 09/26/18 09/26/18 Range/Units 03:20 03:20 Troponin I Less than 0.02 L (0.02-0.05) ng/mL B-Natriuretic Peptide 371 H (0-100) pg/mL Coagulation 09/25/18 09/26/18 Range/Units 05:00 03:20 B-Natriuretic Peptide 551 H 371 H (0-100) pg/mL CBC 09/26/18 Range/Units 06:05 WBC 8.2 (4.0-11.0) th/mm3 RBC 4.29 L (4.50-5.90) mil/mm3 Hgb 13.0 (13.0-17.0) gm/dL Hct 37.7 L (39.0-51.0) % Plt Count 189 (150-450) th/mm3 Comprehensive Metabolic Panel 09/25/18 09/25/18 09/25/18 Range/Units 05:00 13:54 13:54 Sodium 141 140 Cancelled (136-145) meq/L Potassium 3.9 4.1 Cancelled (3.5-5.1) meq/L Chloride 107 107 Cancelled (98-107) meq/L Carbon Dioxide 26.5 27.4 Cancelled (21.0-32.0) meq/L BUN 22 H 20 H Cancelled (7-18) mg/dL Creatinine 1.10 1.23 Cancelled (0.60-1.30) mg/dL Calcium 8.6 7.9 L Cancelled (8.5-10.1) mg/dL 09/26/18 Range/Units 03:20 Sodium 142 (136-145) meq/L Potassium 3.8 (3.5-5.1) meq/L Chloride 107 (98-107) meq/L Carbon Dioxide 27.4 (21.0-32.0) meq/L BUN 18 (7-18) mg/dL Creatinine 1.25 (0.60-1.30) mg/dL Calcium 7.9 L (8.5-10.1) mg/dL Intake and Output 09/25/18 09/26/18 09/26/18 22:59 06:59 14:59 Intake Total 565 / 565 965 / 965 380 / 380 Output Total 2700 / 2700 1225 / 1225 Balance -2135 / -2135 -260 / -260 380 / 380 Intake: IV 565 / 565 965 / 965 250 / 250 Precedex Inj 200 MCG In NS Inj 50 / 50 50 / 50 48 ML @ 0.2 MCG/KG/HR 6.05 mls/ hr IV.CONT TITRATE PRN Rx#: [id number] Diprivan 1000 mg/100 ml Inj 1, 300 / 300 200 / 200 000 mg In 100 ml @ 50 MCG/KG/ MIN 36.33 mls/hr IV.CONT TITRATE PRN Rx#:[id number] Zosyn 3.375 GM Premix 50 ML @ 50 / 50 100 / 100 100 mls/hr IV.SIG Q6H [facility] Rx#: [id number] Vancomycin Inj 1,500 MG In NS 515 / 515 515 / 515 Inj 500 ML @ 250 mls/hr IV.SIG Q12H [facility] Rx#:[id number] Water Bolus Amount 130 / 130 Output: Urine Amount (Catheter) 2450 / 2450 1150 / 1150 Indwelling Urethral Catheter 2450 / 2450 1150 / 1150 Wound Vac Amount 250 / 250 75 / 75 Midline Upper Umbilicus 250 / 250 75 / 75 Other: Mode Setting Midline Upper Umbilicus Continuous Continuous Date of Last Bowel Movement 09/24/18 09/25/18 Weight 124.6 kg - Imaging and Cardiology Imaging: Impressions Chest X-Ray 09/25/18 13:54 CONCLUSION: Diffuse interstitial prominence stable compared to previous exam. Minimal right basilar effusion unchanged from prior. ET tube in good position. Situs inversus. Chest X-Ray 09/26/18 06:00 CONCLUSION: Bilateral mostly basilar airspace disease similar to September 25. Assessment and Plan - Assessment (1) Cardiomyopathy Code(s): I42.9 - Cardiomyopathy, unspecified Status: Acute (2) Tobacco abuse Code(s): Z72.0 - Tobacco use Status: Acute (3) CAD (coronary artery disease) Code(s): I25.10 - Atherosclerotic heart disease of [place] coronary artery without angina pectoris Status: Acute (4) Cellulitis of abdominal wall Code(s): L03.311 - Cellulitis of abdominal wall Status: Acute (5) Atrial fibrillation with RVR Code(s): I48.91 - Unspecified atrial fibrillation Status: Acute (6) COPD (chronic obstructive pulmonary disease) Code(s): J44.9 - Chronic obstructive pulmonary disease, unspecified Status: Acute - Plan 1.) CAD - assymptomatic, check fasting lipids, lfts, on lovenox, start aspirin 81 mg qd if/when surgery is not indicated 2.) Cardiomyopathy - ef=40%, start coreg. Increase altace to 5 mg qd and aldactone to 50 mg bid, f/u bmp/bnp/mag 3.) Afib rvr - rate controlled on cardizem, h/o gid due to pud requiring transfusion in 2015, uncertain f/u due to lack of insurance; on lovenox, chadsvasc score =4, will consider noac or coumadin if no bleeding on lovenox and patient has f/u with pcp 4.) Patient strongly advised to stop smoking 5.) Situs inversus
--- NOTE | 2018-09-26 14:47 | P.PNGS ---
Subjective Interval history: DAILY PROGRESS NOTE FOR SURGICAL ATTENDING, DR. MELANY CORONADO Intubated/Sedated Seen about about 1530---Now extubated; Stable on NC Physical Exam Vital signs: Vital Signs 09/25/18 14:45 09/25/18 15:00 09/25/18 15:15 Temperature Pulse Rate 90 88 83 Respiratory Rate 22 20 20 Blood Pressure 72/43 L 75/49 L 80/51 L Pulse Oximetry 95 92 L 95 09/25/18 15:30 09/25/18 15:45 09/25/18 16:00 Temperature Pulse Rate 83 79 91 H Respiratory Rate 20 19 23 Blood Pressure 87/63 L 90/60 L 114/78 Pulse Oximetry 98 99 98 09/25/18 16:15 09/25/18 16:30 09/25/18 16:32 Temperature Pulse Rate 81 79 Respiratory Rate 18 18 19 Blood Pressure 105/67 98/68 L Pulse Oximetry 99 99 93 L 09/25/18 16:45 09/25/18 17:00 09/25/18 17:15 Temperature Pulse Rate 82 89 84 Respiratory Rate 18 21 18 Blood Pressure 107/67 139/96 H 140/77 Pulse Oximetry 100 98 97 09/25/18 17:30 09/25/18 17:45 09/25/18 18:00 Temperature Pulse Rate 89 92 H 91 H Respiratory Rate 16 19 19 Blood Pressure 127/72 102/64 101/58 L Pulse Oximetry 99 98 98 09/25/18 18:15 09/25/18 18:30 09/25/18 18:45 Temperature Pulse Rate 91 H 94 H 94 H Respiratory Rate 19 18 18 Blood Pressure 97/53 L 101/55 L 97/50 L Pulse Oximetry 99 99 99 09/25/18 19:00 09/25/18 19:15 09/25/18 19:30 Temperature Pulse Rate 86 95 H 92 H Respiratory Rate 18 18 18 Blood Pressure 97/51 L 94/54 L 86/53 L Pulse Oximetry 99 99 99 09/25/18 19:45 09/25/18 20:00 09/25/18 20:15 Temperature Pulse Rate 92 H 87 90 Respiratory Rate 18 18 18 Blood Pressure 106/66 95/52 L 100/59 L Pulse Oximetry 99 99 99 09/25/18 20:30 09/25/18 20:45 09/25/18 21:00 Temperature Pulse Rate 85 83 84 Respiratory Rate 18 18 18 Blood Pressure 88/62 L 98/65 L 105/62 Pulse Oximetry 99 99 99 09/25/18 21:15 09/25/18 21:20 09/25/18 21:49 Temperature 98.5 F Pulse Rate 87 86 Respiratory Rate 18 19 Blood Pressure 120/70 108/76 Pulse Oximetry 99 99 98 09/25/18 22:00 09/25/18 22:04 09/25/18 22:19 Temperature Pulse Rate 87 88 91 H Respiratory Rate 19 19 18 Blood Pressure 106/69 122/70 Pulse Oximetry 98 98 98 09/25/18 22:29 09/25/18 22:34 09/25/18 22:44 Temperature Pulse Rate 90 95 H 92 H Respiratory Rate 18 18 18 Blood Pressure 125/83 117/77 92/60 L Pulse Oximetry 97 95 97 09/25/18 22:49 09/25/18 23:00 09/25/18 23:04 Temperature Pulse Rate 89 93 H 91 H Respiratory Rate 19 18 18 Blood Pressure 105/64 110/61 Pulse Oximetry 97 97 97 09/25/18 23:19 09/25/18 23:34 09/25/18 23:42 Temperature Pulse Rate 92 H 93 H Respiratory Rate 19 19 18 Blood Pressure 108/61 100/58 L Pulse Oximetry 97 98 96 09/26/18 00:00 09/26/18 00:32 09/26/18 00:45 Temperature Pulse Rate 94 H 94 H 97 H Respiratory Rate 19 19 21 Blood Pressure 105/60 86/54 L Pulse Oximetry 98 98 96 09/26/18 00:46 09/26/18 00:51 09/26/18 01:00 Temperature Pulse Rate 99 H 96 H 95 H Respiratory Rate 20 20 20 Blood Pressure 86/51 L 114/58 L 96/57 L Pulse Oximetry 96 97 97 09/26/18 01:15 09/26/18 01:17 09/26/18 01:30 Temperature Pulse Rate 93 H 93 H 93 H Respiratory Rate 20 19 Blood Pressure 98/62 L 98/62 L 101/58 L Pulse Oximetry 97 97 09/26/18 01:45 09/26/18 02:00 09/26/18 02:03 Temperature Pulse Rate 95 H 94 H 95 H Respiratory Rate 21 20 20 Blood Pressure 110/59 L 109/60 Pulse Oximetry 97 97 97 09/26/18 02:15 09/26/18 02:30 09/26/18 02:45 Temperature Pulse Rate 97 H 103 H 98 H Respiratory Rate 20 24 21 Blood Pressure 99/67 L 100/70 118/64 Pulse Oximetry 97 97 97 09/26/18 03:00 09/26/18 03:15 09/26/18 03:30 Temperature Pulse Rate 100 H 98 H 94 H Respiratory Rate 21 20 20 Blood Pressure 114/62 125/71 114/69 Pulse Oximetry 97 97 98 09/26/18 03:45 09/26/18 03:59 09/26/18 04:00 Temperature 100.2 F H Pulse Rate 102 H 101 H Respiratory Rate 22 26 H 24 Blood Pressure 140/83 134/73 Pulse Oximetry 98 95 91 L 09/26/18 07:00 09/26/18 07:15 09/26/18 07:30 Temperature Pulse Rate 102 H 99 H 101 H Respiratory Rate 19 19 22 Blood Pressure 123/97 H 116/84 109/74 Pulse Oximetry 99 98 97 09/26/18 07:45 09/26/18 08:00 09/26/18 08:15 Temperature 99.3 F Pulse Rate 102 H 100 H 96 H Respiratory Rate 19 18 18 Blood Pressure 118/87 128/80 111/88 Pulse Oximetry 98 98 98 09/26/18 08:30 09/26/18 08:37 09/26/18 08:45 Temperature Pulse Rate 97 H 68 Respiratory Rate 18 18 21 Blood Pressure 116/79 122/73 Pulse Oximetry 98 97 97 09/26/18 09:00 09/26/18 09:15 09/26/18 09:30 Temperature Pulse Rate 69 68 68 Respiratory Rate 24 22 23 Blood Pressure 116/70 110/68 107/65 Pulse Oximetry 95 94 L 95 09/26/18 09:45 09/26/18 10:00 09/26/18 10:39 Temperature Pulse Rate 73 68 Respiratory Rate 31 H 21 26 H Blood Pressure 110/67 112/67 Pulse Oximetry 94 L 93 L 97 09/26/18 11:24 09/26/18 12:00 09/26/18 12:10 Temperature Pulse Rate 77 Respiratory Rate 25 H Blood Pressure Pulse Oximetry 95 92 L 09/26/18 12:25 09/26/18 14:09 Temperature Pulse Rate Respiratory Rate 23 Blood Pressure Pulse Oximetry 93 L Intake & Output 09/25/18 09/26/18 09/26/18 18:59 06:59 18:59 Intake Total 1615 / 1615 965 / 965 380 / 380 Output Total 1750 / 1750 2425 / 2425 Balance -135 / -135 -1460 / -1460 380 / 380 Weight 124.6 kg Intake: IV 615 / 615 965 / 965 250 / 250 Precedex Inj 200 MCG In NS Inj 50 / 50 50 / 50 48 ML @ 0.2 MCG/KG/HR 6.05 mls/ hr IV.CONT TITRATE PRN Rx#: [id number] Diprivan 1000 mg/100 ml Inj 1, 300 / 300 200 / 200 000 mg In 100 ml @ 50 MCG/KG/ MIN 36.33 mls/hr IV.CONT TITRATE PRN Rx#:[id number] Zosyn 3.375 GM Premix 50 ML @ 100 / 100 100 / 100 100 mls/hr IV.SIG Q6H [facility] Rx#: [id number] Vancomycin Inj 1,500 MG In NS 515 / 515 515 / 515 Inj 500 ML @ 250 mls/hr IV.SIG Q12H [facility] Rx#:[id number] Water Bolus Amount 130 / 130 Anesthesia Amount 1000 / 1000 Output: Estimated Blood Loss 250 / 250 Urine Amount (Catheter) 1500 / 1500 2100 / 2100 Indwelling Urethral Catheter 1500 / 1500 2100 / 2100 Wound Vac Amount 325 / 325 Midline Upper Umbilicus 325 / 325 Other: Mode Setting Midline Upper Umbilicus Continuous Continuous Date of Last Bowel Movement 09/24/18 09/24/18 09/25/18 Narrative: Intubated/Sedated Cardio: course breath sounds bilaterally Abd: Wound Vac in place with good seal; OG clamped - Urinary Catheter Management Indwelling Urethral Catheter Cath placed during this visit: yes Reason for continuing: Hourly intake/output Insertion date: 09/25/18 Results - Labs 09/26/18 06:05 09/26/18 03:20 Laboratory Results - last 24 hr 09/25/18 09/25/18 09/25/18 13:54 13:54 16:38 WBC RBC Hgb Hct MCV MCH MCHC RDW Plt Count MPV Puncture Site Art line Patient Temperature 98.6 O2 Saturation 97 ABG pH 7.36 L ABG pCO2 43 H ABG pO2 303 H ABG HCO3 24 ABG O2 Content 18.1 ABG Base Excess -1.2 ABG Methemoglobin 1.7 Marlon Test Present Hemoglobin 12.8 Carboxyhemoglobin 0.8 O2 Delivery Device Ventilator Vent Setting Prvc/ac Inspired O2 100 Critical Value No Sodium 140 Cancelled Potassium 4.1 Cancelled Chloride 107 Cancelled Carbon Dioxide 27.4 Cancelled Anion Gap 6 Cancelled BUN 20 H Cancelled Creatinine 1.23 Cancelled Estimated GFR 61 L Cancelled POC Glucose Random Glucose 194 H D Cancelled Calcium 7.9 L Cancelled Total Creatine Kinase 54 Troponin I Less than 0.02 L B-Natriuretic Peptide Nasal Screen MRSA (PCR) Vancomycin Trough 09/25/18 09/25/18 09/25/18 17:26 21:30 21:30 WBC RBC Hgb Hct MCV MCH MCHC RDW Plt Count MPV Puncture Site Patient Temperature O2 Saturation ABG pH ABG pCO2 ABG pO2 ABG HCO3 ABG O2 Content ABG Base Excess ABG Methemoglobin Marlon Test Hemoglobin Carboxyhemoglobin O2 Delivery Device Vent Setting Inspired O2 Critical Value Sodium Potassium Chloride Carbon Dioxide Anion Gap BUN Creatinine Estimated GFR POC Glucose 112 H Random Glucose Calcium Total Creatine Kinase 46 Troponin I Less than 0.02 L B-Natriuretic Peptide Nasal Screen MRSA (PCR) Not detected Vancomycin Trough 09/25/18 09/26/18 09/26/18 21:48 03:20 03:20 WBC RBC Hgb Hct MCV MCH MCHC RDW Plt Count MPV Puncture Site Patient Temperature O2 Saturation ABG pH ABG pCO2 ABG pO2 ABG HCO3 ABG O2 Content ABG Base Excess ABG Methemoglobin Marlon Test Hemoglobin Carboxyhemoglobin O2 Delivery Device Vent Setting Inspired O2 Critical Value Sodium 142 Potassium 3.8 Chloride 107 Carbon Dioxide 27.4 Anion Gap 8 BUN 18 Creatinine 1.25 Estimated GFR 60 L POC Glucose 111 H Random Glucose 107 H Calcium 7.9 L Total Creatine Kinase 40 Troponin I Less than 0.02 L B-Natriuretic Peptide 371 H Nasal Screen MRSA (PCR) Vancomycin Trough 09/26/18 09/26/18 09/26/18 03:23 06:05 09:34 WBC 8.2 RBC 4.29 L Hgb 13.0 Hct 37.7 L MCV 87.8 MCH 30.3 MCHC 34.6 RDW 14.2 Plt Count 189 MPV 8.1 Puncture Site Patient Temperature O2 Saturation ABG pH ABG pCO2 ABG pO2 ABG HCO3 ABG O2 Content ABG Base Excess ABG Methemoglobin Marlon Test Hemoglobin Carboxyhemoglobin O2 Delivery Device Vent Setting Inspired O2 Critical Value Sodium Potassium Chloride Carbon Dioxide Anion Gap BUN Creatinine Estimated GFR POC Glucose 107 126 H Random Glucose Calcium Total Creatine Kinase Troponin I B-Natriuretic Peptide Nasal Screen MRSA (PCR) Vancomycin Trough 09/26/18 09/26/18 09/26/18 11:59 12:13 12:40 WBC RBC Hgb Hct MCV MCH MCHC RDW Plt Count MPV Puncture Site Art line Patient Temperature 98.6 O2 Saturation 95 ABG pH 7.43 H ABG pCO2 41 ABG pO2 96 ABG HCO3 27 H ABG O2 Content 16.3 ABG Base Excess 3.1 H ABG Methemoglobin 1.3 Marlon Test Hemoglobin 12.1 Carboxyhemoglobin 1.0 O2 Delivery Device Ventilator Vent Setting Cpap7/5 Inspired O2 40 Critical Value No Sodium Potassium Chloride Carbon Dioxide Anion Gap BUN Creatinine Estimated GFR POC Glucose 107 Random Glucose Calcium Total Creatine Kinase Troponin I B-Natriuretic Peptide Nasal Screen MRSA (PCR) Vancomycin Trough 17.0 H - Imaging Imaging: ITS Impressions Abdomen/Pelvis CT 09/19/18 17:31 CONCLUSION: 1. Previous ventral hernia repair. Associated large, chronic and nonindurated appearing intraperitoneal fluid collection is without appreciable change but there is a new, small and indurated appearing subcutaneous fluid collection at the umbilicus. Just above the subcutaneous fluid collection is a new area of herniated fat. 2. Enlarged and fatty infiltrated liver, similar to before. 3. No acute abnormalities are seen within the abdominal or pelvic cavity. Patient has situs inversus. There is a moderate size hiatal hernia. Chest CTA 09/19/18 17:31 CONCLUSION: 1. No pulmonary embolus. 2. Very mild dependent atelectasis of both lungs. No pneumonia, effusion or pneumothorax. 3. Mild to moderate emphysema. 4. Coronary artery calcification. 5. Moderate size hiatal hernia. 6. Situs inversus. Needle Aspiration US 09/21/18 00:00 CONCLUSION: 1. Uncomplicated ultrasound-guided aspiration of superficial subcutaneous periumbilical fluid collection, as above. Abdomen X-Ray 09/24/18 00:00 CONCLUSION: Nonspecific intestinal gas pattern Chest X-Ray 09/26/18 06:00 CONCLUSION: Bilateral mostly basilar airspace disease similar to September 25. Assessment and Plan - Assessment (1) Cellulitis of abdominal wall Code(s): L03.311 - Cellulitis of abdominal wall Status: Acute Plan: 58 year old male with abdominal cellulitis; prior hernia repair and mesh present -POD1 I&D of subcutaneous abdominal abscess with Wound Vac placement -Vent per [facility] -Plan for repeat I&D with Wound Vac change in OR tomorrow -Obtain consents -Regular diet tonight; NPO after MN (2) Situs inversus totalis Code(s): Q89.3 - Situs inversus Status: Acute (3) History of colon cancer Code(s): Z85.038 - Personal history of other malignant neoplasm of large intestine Status: Acute (4) Subcutaneous abscess Code(s): L02.91 - Cutaneous abscess, unspecified Status: Acute - Attending Attestation NOTE FOR SURGICAL ATTENDING, DR. MELANY CORONADO Discussed with son in the room Patient has subsequently been extubated Up walking around in the ICU Looks comfortable Discussed surgical plans I agree with above assessment and plan. The exam, history, and the medical decision-making described in the above note were completed with the assistance of the mid-level provider. I reviewed and agree with the findings presented. I attest that I had a [id number] encounter with the patient on the same day, and personally performed and documented my assessment and findings in the medical record. The following services were provided during this hospital visit: Chart data review, vital sign assessments/reviewing monitor data Review of consultations notes if present. Medication orders/review and/or management Ordering and/or reviewing lab tests Ordering and/or interpreting/reviewing x-rays and/or diagnostic studies Care of the patient and discussion of the patient with the care team Documentation time To help prompt me to consider important information that might be impacting today's encounter and assessment, Information from prior notes written by myself or my colleagues may have been "brought forward/copy and pasted" into today's note. (4) Subcutaneous abscess Qualifiers: Site of cutaneous abscess: trunk Site of cutaneous abscess of trunk: abdominal wall Qualified Code(s): L02.211 - Cutaneous abscess of abdominal wall
--- NOTE | 2018-09-26 15:37 | P.PNCC ---
Subjective Subjective Remarks/Hospital Course: 09/25: This 58-year-old gentleman developed an infection and a ventral incision and required surgical drainage today. His history is noteworthy in that he has had a productive cough for several weeks now. Following the abdominal wall procedure today he continued with problems associated with hypertension and difficulty weaning from mechanical ventilation. Due to his preoperative respiratory problems this is not surprising. I have seen him in the PACU following his procedure where he is febrile but well perfused. 09/26: Extubated following CPAP trial. Tolerating nasal cannula. Objective Vital Signs / I&O: Vital Signs 09/25/18 15:30 09/25/18 15:45 09/25/18 16:00 Temperature Pulse Rate 83 79 91 H Respiratory Rate 20 19 23 Blood Pressure 87/63 L 90/60 L 114/78 Pulse Oximetry 98 99 98 09/25/18 16:15 09/25/18 16:30 09/25/18 16:32 Temperature Pulse Rate 81 79 Respiratory Rate 18 18 19 Blood Pressure 105/67 98/68 L Pulse Oximetry 99 99 93 L 09/25/18 16:45 09/25/18 17:00 09/25/18 17:15 Temperature Pulse Rate 82 89 84 Respiratory Rate 18 21 18 Blood Pressure 107/67 139/96 H 140/77 Pulse Oximetry 100 98 97 09/25/18 17:30 09/25/18 17:45 09/25/18 18:00 Temperature Pulse Rate 89 92 H 91 H Respiratory Rate 16 19 19 Blood Pressure 127/72 102/64 101/58 L Pulse Oximetry 99 98 98 09/25/18 18:15 09/25/18 18:30 09/25/18 18:45 Temperature Pulse Rate 91 H 94 H 94 H Respiratory Rate 19 18 18 Blood Pressure 97/53 L 101/55 L 97/50 L Pulse Oximetry 99 99 99 09/25/18 19:00 09/25/18 19:15 09/25/18 19:30 Temperature Pulse Rate 86 95 H 92 H Respiratory Rate 18 18 18 Blood Pressure 97/51 L 94/54 L 86/53 L Pulse Oximetry 99 99 99 09/25/18 19:45 09/25/18 20:00 09/25/18 20:15 Temperature Pulse Rate 92 H 87 90 Respiratory Rate 18 18 18 Blood Pressure 106/66 95/52 L 100/59 L Pulse Oximetry 99 99 99 09/25/18 20:30 09/25/18 20:45 09/25/18 21:00 Temperature Pulse Rate 85 83 84 Respiratory Rate 18 18 18 Blood Pressure 88/62 L 98/65 L 105/62 Pulse Oximetry 99 99 99 09/25/18 21:15 09/25/18 21:20 09/25/18 21:49 Temperature 98.5 F Pulse Rate 87 86 Respiratory Rate 18 19 Blood Pressure 120/70 108/76 Pulse Oximetry 99 99 98 09/25/18 22:00 09/25/18 22:04 09/25/18 22:19 Temperature Pulse Rate 87 88 91 H Respiratory Rate 19 19 18 Blood Pressure 106/69 122/70 Pulse Oximetry 98 98 98 09/25/18 22:29 09/25/18 22:34 09/25/18 22:44 Temperature Pulse Rate 90 95 H 92 H Respiratory Rate 18 18 18 Blood Pressure 125/83 117/77 92/60 L Pulse Oximetry 97 95 97 09/25/18 22:49 09/25/18 23:00 09/25/18 23:04 Temperature Pulse Rate 89 93 H 91 H Respiratory Rate 19 18 18 Blood Pressure 105/64 110/61 Pulse Oximetry 97 97 97 09/25/18 23:19 09/25/18 23:34 09/25/18 23:42 Temperature Pulse Rate 92 H 93 H Respiratory Rate 19 19 18 Blood Pressure 108/61 100/58 L Pulse Oximetry 97 98 96 09/26/18 00:00 09/26/18 00:32 09/26/18 00:45 Temperature Pulse Rate 94 H 94 H 97 H Respiratory Rate 19 19 21 Blood Pressure 105/60 86/54 L Pulse Oximetry 98 98 96 09/26/18 00:46 09/26/18 00:51 09/26/18 01:00 Temperature Pulse Rate 99 H 96 H 95 H Respiratory Rate 20 20 20 Blood Pressure 86/51 L 114/58 L 96/57 L Pulse Oximetry 96 97 97 09/26/18 01:15 09/26/18 01:17 09/26/18 01:30 Temperature Pulse Rate 93 H 93 H 93 H Respiratory Rate 20 19 Blood Pressure 98/62 L 98/62 L 101/58 L Pulse Oximetry 97 97 09/26/18 01:45 09/26/18 02:00 09/26/18 02:03 Temperature Pulse Rate 95 H 94 H 95 H Respiratory Rate 21 20 20 Blood Pressure 110/59 L 109/60 Pulse Oximetry 97 97 97 09/26/18 02:15 09/26/18 02:30 09/26/18 02:45 Temperature Pulse Rate 97 H 103 H 98 H Respiratory Rate 20 24 21 Blood Pressure 99/67 L 100/70 118/64 Pulse Oximetry 97 97 97 09/26/18 03:00 09/26/18 03:15 09/26/18 03:30 Temperature Pulse Rate 100 H 98 H 94 H Respiratory Rate 21 20 20 Blood Pressure 114/62 125/71 114/69 Pulse Oximetry 97 97 98 09/26/18 03:45 09/26/18 03:59 09/26/18 04:00 Temperature 100.2 F H Pulse Rate 102 H 101 H Respiratory Rate 22 26 H 24 Blood Pressure 140/83 134/73 Pulse Oximetry 98 95 91 L 09/26/18 07:00 09/26/18 07:15 09/26/18 07:30 Temperature Pulse Rate 102 H 99 H 101 H Respiratory Rate 19 19 22 Blood Pressure 123/97 H 116/84 109/74 Pulse Oximetry 99 98 97 09/26/18 07:45 09/26/18 08:00 09/26/18 08:15 Temperature 99.3 F Pulse Rate 102 H 100 H 96 H Respiratory Rate 19 18 18 Blood Pressure 118/87 128/80 111/88 Pulse Oximetry 98 98 98 09/26/18 08:30 09/26/18 08:37 09/26/18 08:45 Temperature Pulse Rate 97 H 68 Respiratory Rate 18 18 21 Blood Pressure 116/79 122/73 Pulse Oximetry 98 97 97 09/26/18 09:00 09/26/18 09:15 09/26/18 09:30 Temperature Pulse Rate 69 68 68 Respiratory Rate 24 22 23 Blood Pressure 116/70 110/68 107/65 Pulse Oximetry 95 94 L 95 09/26/18 09:45 09/26/18 10:00 09/26/18 10:30 Temperature Pulse Rate 73 68 67 Respiratory Rate 31 H 21 22 Blood Pressure 110/67 112/67 115/69 Pulse Oximetry 94 L 93 L 94 L 09/26/18 10:39 09/26/18 11:00 09/26/18 11:24 Temperature Pulse Rate 67 Respiratory Rate 26 H 22 25 H Blood Pressure 122/74 Pulse Oximetry 97 94 L 95 09/26/18 12:00 09/26/18 12:10 09/26/18 12:25 Temperature 98.0 F Pulse Rate 68 Respiratory Rate 24 Blood Pressure 125/73 Pulse Oximetry 94 L 92 L 93 L 09/26/18 13:00 09/26/18 14:00 09/26/18 14:09 Temperature Pulse Rate 68 75 Respiratory Rate 21 28 H 23 Blood Pressure 117/71 103/62 Pulse Oximetry 93 L 89 L Intake & Output 09/25/18 09/26/18 09/26/18 18:59 06:59 18:59 Intake Total 1615 / 1615 965 / 965 380 / 380 Output Total 1750 / 1750 2425 / 2425 Balance -135 / -135 -1460 / -1460 380 / 380 Weight 124.6 kg Intake: IV 615 / 615 965 / 965 250 / 250 Precedex Inj 200 MCG In NS Inj 50 / 50 50 / 50 48 ML @ 0.2 MCG/KG/HR 6.05 mls/ hr IV.CONT TITRATE PRN Rx#: [id number] Diprivan 1000 mg/100 ml Inj 1, 300 / 300 200 / 200 000 mg In 100 ml @ 50 MCG/KG/ MIN 36.33 mls/hr IV.CONT TITRATE PRN Rx#:[id number] Zosyn 3.375 GM Premix 50 ML @ 100 / 100 100 / 100 100 mls/hr IV.SIG Q6H [facility] Rx#: [id number] Vancomycin Inj 1,500 MG In NS 515 / 515 515 / 515 Inj 500 ML @ 250 mls/hr IV.SIG Q12H [facility] Rx#:[id number] Water Bolus Amount 130 / 130 Anesthesia Amount 1000 / 1000 Output: Estimated Blood Loss 250 / 250 Urine Amount (Catheter) 1500 / 1500 2100 / 2100 Indwelling Urethral Catheter 1500 / 1500 2100 / 2100 Wound Vac Amount 325 / 325 Midline Upper Umbilicus 325 / 325 Other: Mode Setting Midline Upper Umbilicus Continuous Continuous Date of Last Bowel Movement 09/24/18 09/24/18 09/25/18 Result Diagrams: 09/26/18 06:05 09/26/18 03:20 Objective Remarks: Narrative: GENERAL: Sitting up in bed, on nasal cannula. SKIN: Focused skin assessment warm/moist. HEAD: Atraumatic. Normocephalic. EYES: Pupils equal and round. No scleral icterus. No injection or drainage. ENT: No nasal bleeding or discharge. Mucous membranes pink and moist. NECK: Trachea midline. No JVD. CARDIOVASCULAR: Normal S1-S2, regular rate and rhythm, neck veins are not distended. RESPIRATORY: Clear to auscultation aside from a few mobile secretions. No wheezes or crackles. Breath sounds equal bilaterally. GASTROINTESTINAL: Abdomen soft, large. Postsurgical with dry dressing intact. Bowel sounds are present. MUSCULOSKELETAL: No obvious deformities. No clubbing. No cyanosis. No edema. Warm and flushed. NEUROLOGICAL: AAO x3, moving all 4 extremities. Assessment and Plan - Problem List (1) Acute postoperative respiratory insufficiency Code(s): J95.89 - Other postprocedural complications and disorders of respiratory system, not elsewhere classified Status: Acute (2) Cellulitis of abdominal wall Code(s): L03.311 - Cellulitis of abdominal wall Status: Acute (3) COPD (chronic obstructive pulmonary disease) Code(s): J44.9 - Chronic obstructive pulmonary disease, unspecified Status: Acute (4) Cardiomyopathy Code(s): I42.9 - Cardiomyopathy, unspecified Status: Acute (5) Situs inversus totalis Code(s): Q89.3 - Situs inversus Status: Acute (6) Subcutaneous abscess Code(s): L02.91 - Cutaneous abscess, unspecified Status: Acute (7) Atrial fibrillation Code(s): I48.91 - Unspecified atrial fibrillation Status: Acute - Assessment and Plan Plan: Plan: 1. Extubated following CPAP trial, tolerating nasal cannula. 2. Continue Aldactone 3. Continue Coreg, Altace, diltiazem as ordered. 4. Supplemental morphine for pain. 5. Propofol sedation for vent synchrony. 6. Continue to hold Lovenox anticoagulation until okay with surgeon 7. Further recommendations per cardiology/ surgery. Overall impression: This gentleman is s/p abdominal wall procedure for abscess. His care is complicated by postoperative respiratory insufficiency and underlying dilated cardiomyopathy with left ventricular ejection fraction of 40% . His radiographic interpretation is complicated by total situs inversus. Transfer to hospitalist service (6) Subcutaneous abscess Qualifiers: Site of cutaneous abscess: trunk Site of cutaneous abscess of trunk: abdominal wall Qualified Code(s): L02.211 - Cutaneous abscess of abdominal wall (7) Atrial fibrillation Qualifiers: Atrial fibrillation type: permanent Qualified Code(s): I48.2 - Chronic atrial fibrillation
[2018-09-26] MEDS: oxyCODONE/Acetaminophen 10/325 Tablet PO PRN (20:09)
[2018-09-27] MEDS: oxyCODONE/Acetaminophen 10/325 Tablet PO PRN ×3 (00:09→22:19)
[2018-09-27] MEDS: Piperacil/Tazo 3.375 GM Premix 50 ML IV.SIG SCH ×5 (00:53→23:53)
[2018-09-27] MEDS: HYDROmorphone PF Inj 1 MG/ML Ampul IV.PUSH PRN ×5 (01:05→20:40)
[2018-09-27] MEDS: Vancomycin Inj 1,500 MG in Sodium Chlor 0.9% Inj 500 ML IV.SIG SCH ×2 (01:51→14:41)
[2018-09-27] MEDS: Oral Hygiene Kit OROPHARYNG SCH ×5 (01:52→23:54)
[2018-09-27 04:31] LABS: Calcium 8.2 mg/dL (8.5-10.1); Carbon Dioxide 26.2 meq/L (21.0-32.0); Magnesium 2.2 mg/dL (1.5-2.5); Potassium 3.7 meq/L (3.5-5.1)
[2018-09-27] MEDS: Insulin NovoLOG Aspart Correctional Sugar Inj SQ SCH ×5 (05:09→21:31)
[2018-09-27] MEDS: Chlorhexidine 0.12% Oral Kit 15 ML UDC OROPHARYNG SCH ×2 (08:59→20:17)
[2018-09-27] MEDS: Spironolactone 50 MG Tablet PO SCH ×2 (09:00→18:16)
[2018-09-27] MEDS: Ramipril 5 MG Capsule PO SCH (09:00)
[2018-09-27] MEDS: Carvedilol 12.5 MG Tablet PO SCH ×2 (09:00→20:17)
[2018-09-27] MEDS: dilTIAZem 60 MG Tablet PO SCH ×4 (09:00→20:17)
[2018-09-27] MEDS: Aspirin 325 MG Tablet PO SCH (09:00)
--- NOTE | 2018-09-27 12:17 | P.PNCA ---
Subjective Interval history: alert in nad Medications and Allergies Active Medications: Active Medications Albuterol (Duoneb Neb (Prn)) 1 ampul NEB Q2HR NEB PRN PRN Reason: SHORTNESS OF BREATH Last Admin: 09/26/18 20:07 Dose: 1 ampul Aspirin (Aspirin) 325 mg PO DAILY [facility] Last Admin: 09/27/18 09:00 Dose: 325 mg Carvedilol (Coreg) 12.5 mg PO BID [facility] Last Admin: 09/27/18 09:00 Dose: 12.5 mg Chlorhexidine Gluconate (Peridex 0.12% Oral Kit) 15 ml OROPHARYNG BID@0800, 2000 [facility] Last Admin: 09/27/18 08:59 Dose: 15 ml Dextrose (D50w Vial) 50 ml IV.PUSH UNSCH PRN PRN Reason: PER HYPOGLYCEMIA PROTOCOL Diltiazem HCl (Cardizem) 60 mg PO QID [facility] Last Admin: 09/27/18 09:00 Dose: 60 mg Enoxaparin Sodium (Lovenox Inj) 100 mg SQ Q12H [facility] Last Admin: 09/23/18 22:32 Dose: 100 mg Glucagon (Glucagon Inj) 1 mg OTHER PRN PRN PRN Reason: for Hypoglycemia Protocol Hydromorphone HCl (Dilaudid Pf Inj) 1 mg IV.PUSH Q4H PRN PRN Reason: BREAKTHROUGH PAIN Last Admin: 09/27/18 10:35 Dose: 1 mg Piperacillin/Tazobactam/Dextrose (Zosyn 3.375 Gm Premix) 50 mls @ 100 mls/hr IV.SIG Q6H [facility] Last Infusion: 09/27/18 06:31 Dose: Infused Vancomycin HCl 1,500 mg/ (Sodium Chloride) 515 mls @ 250 mls/hr IV.SIG Q12H [facility] Last Infusion: 09/27/18 04:00 Dose: Infused Dexmedetomidine HCl 200 mcg/ (Sodium Chloride) 50 mls @ 6.05 mls/hr IV.CONT TITRATE PRN; Protocol PRN Reason: Per Protocol Last Titration: 09/26/18 19:55 Dose: 0 mcg/kg/hr, 0 mls/hr Propofol (Diprivan 1000 Mg/100 Ml Inj) 1,000 mg in 100 mls @ 36.33 mls/hr IV.CONT TITRATE PRN; Protocol PRN Reason: Per Protocol Last Titration: 09/26/18 11:57 Dose: 0 mcg/kg/min, 0 mls/hr Norepinephrine Bitartrate (Levophed-Dextrose 4 Mg/250 Ml Drip) 4 mg in 250 mls @ 7.5 mls/hr IV.SIG TITRATE PRN; Protocol PRN Reason: Per Protocol Last Titration: 09/26/18 09:20 Dose: 0 mcg/min, 0 mls/hr Insulin Aspart (Novolog Insulin Correctional Sugar Inj) 0 unit SQ ACHS AND 3AM [facility]; Protocol Last Admin: 09/27/18 08:59 Dose: Not Given Ipratropium [place] (Atrovent Neb) 0.5 mg NEB Q4HR NEB PRN PRN Reason: sob/wheezing Last Admin: 09/24/18 21:57 Dose: 0.5 mg Miscellaneous Medication () 1 each OROPHARYNG 0000,0400,1200,1600 [facility] Last Admin: 09/27/18 05:09 Dose: Not Given Naloxone HCl (Narcan Inj) 0.4 mg IV.PUSH UNSCH PRN PRN Reason: SEE LABEL COMMENTS Nicotine (Habitrol 21 Mg Patch.24 Hr) 1 patch T-DERMAL DAILY [facility] Last Admin: 09/27/18 08:59 Dose: Not Given Oxycodone/Acetaminophen (Percocet 10/325 Mg) 1 tab PO Q4H PRN PRN Reason: pain 6-10 Last Admin: 09/27/18 04:00 Dose: 1 tab Oxycodone/Acetaminophen (Percocet 5/325 Mg) 1 tab PO Q4H PRN PRN Reason: pain 1-5 Last Admin: 09/26/18 14:26 Dose: 1 tab Patch Removal (Remove Old Patch) 1 each T-DERMAL DAILY [facility] Last Admin: 09/27/18 09:00 Dose: 1 each Pharmacy Profile Note (Vancomycin Consult Pharmacy) 1 each OTHER UNSCH PRN PRN Reason: Pharmacy to dose Ramipril (Altace) 5 mg PO DAILY [facility] Last Admin: 09/27/18 09:00 Dose: 5 mg Senna/Docusate Sodium (Raven-Colace) 1 tab PO BID PRN PRN Reason: CONSTIPATION Sodium Chloride (Ns Flush) 2 ml IV.FLUSH PRN PRN PRN Reason: FLUSH AFTER USING IV ACCESS Sodium Chloride (Ns Flush) 2 ml IV.FLUSH BID [facility] Last Admin: 09/27/18 09:00 Dose: 2 ml Spironolactone (Aldactone) 50 mg PO BID@0900,1800 [facility] Last Admin: 09/27/18 09:00 Dose: 50 mg Terbutaline Sulfate (Brethine Inj) 1 mg SQ UNSCH PRN PRN Reason: For Extravasation Allergies Allergy/AdvReac Type Severity Reaction Status Date / Time No Known Allergies Allergy Verified 09/19/18 17:25 Home Medications Medication Instructions Recorded Confirmed Type aspirin 325 mg PO DAILY 09/19/18 09/19/18 History Physical Exam Vital signs: Vital Signs 09/26/18 12:25 09/26/18 13:00 09/26/18 13:17 Temperature Pulse Rate 68 80 Respiratory Rate 21 Blood Pressure 117/71 117/71 Pulse Oximetry 93 L 93 L 09/26/18 14:00 09/26/18 14:09 09/26/18 15:00 Temperature Pulse Rate 75 69 Respiratory Rate 28 H 23 22 Blood Pressure 103/62 105/64 Pulse Oximetry 89 L 91 L 09/26/18 16:00 09/26/18 17:00 09/26/18 17:28 Temperature 97.5 F L Pulse Rate 83 83 Respiratory Rate 23 24 22 Blood Pressure 119/74 123/71 Pulse Oximetry 91 L 91 L 09/26/18 17:34 09/26/18 18:00 09/26/18 18:42 Temperature Pulse Rate 86 86 Respiratory Rate 25 H 28 H 32 H Blood Pressure 132/74 Pulse Oximetry 90 L 90 L 09/26/18 20:00 09/26/18 20:07 09/26/18 20:11 Temperature Pulse Rate 79 81 Respiratory Rate 24 Blood Pressure Pulse Oximetry 93 L 09/26/18 20:15 09/26/18 22:45 09/26/18 22:46 Temperature Pulse Rate Respiratory Rate Blood Pressure 133/68 141/79 H Pulse Oximetry 86 L 09/26/18 23:00 09/27/18 00:00 09/27/18 01:00 Temperature 98.7 F Pulse Rate 89 84 83 Respiratory Rate 34 H 34 H 29 H Blood Pressure 130/77 Pulse Oximetry 87 L 87 L 89 L 09/27/18 02:00 09/27/18 02:12 09/27/18 03:00 Temperature Pulse Rate 84 86 83 Respiratory Rate 33 H 31 H 27 H Blood Pressure 139/106 H 144/98 H Pulse Oximetry 90 L 91 L 93 L 09/27/18 04:00 09/27/18 05:07 09/27/18 05:09 Temperature Pulse Rate 79 92 H 88 Respiratory Rate 26 H 28 H Blood Pressure 160/102 H 161/105 H Pulse Oximetry 95 86 L 09/27/18 05:41 09/27/18 06:00 09/27/18 06:11 Temperature Pulse Rate 80 82 86 Respiratory Rate 24 24 25 H Blood Pressure 150/92 H 134/90 Pulse Oximetry 95 96 94 L 09/27/18 07:00 09/27/18 07:01 09/27/18 08:00 Temperature 97.6 F Pulse Rate 84 85 84 Respiratory Rate 22 28 H 25 H Blood Pressure 142/101 H Pulse Oximetry 95 94 L 91 L 09/27/18 08:01 09/27/18 08:45 09/27/18 08:50 Temperature Pulse Rate 88 75 90 Respiratory Rate 21 23 36 H Blood Pressure 148/106 H 151/112 H 155/101 H Pulse Oximetry 93 L 93 L 87 L 09/27/18 09:00 09/27/18 09:01 Temperature Pulse Rate 87 88 Respiratory Rate 29 H 30 H Blood Pressure 165/117 H Pulse Oximetry 88 L 88 L Intake & Output 09/26/18 09/27/18 09/27/18 18:59 06:59 18:59 Intake Total 2545 / 2545 1255 / 1255 Output Total 1475 / 1475 1210 / 1210 Balance 1070 / 1070 45 / 45 Weight 125.1 kg Intake: IV 865 / 865 625 / 625 Precedex Inj 200 MCG In NS Inj 50 / 50 10 / 10 48 ML @ 0.2 MCG/KG/HR 6.05 mls/ hr IV.CONT TITRATE PRN Rx#: [id number] Diprivan 1000 mg/100 ml Inj 1, 200 / 200 000 mg In 100 ml @ 50 MCG/KG/ MIN 36.33 mls/hr IV.CONT TITRATE PRN Rx#:[id number] Zosyn 3.375 GM Premix 50 ML @ 100 / 100 100 / 100 100 mls/hr IV.SIG Q6H [facility] Rx#: [id number] Vancomycin Inj 1,500 MG In NS 515 / 515 515 / 515 Inj 500 ML @ 250 mls/hr IV.SIG Q12H [facility] Rx#:[id number] Oral 1550 / 1550 630 / 630 Water Bolus Amount 130 / 130 Output: Urine 1150 / 1150 Urine Amount (Catheter) 1400 / 1400 Indwelling Urethral Catheter 1400 / 1400 Wound Vac Amount 75 / 75 60 / 60 Midline Upper Umbilicus 75 / 75 60 / 60 Other: Mode Setting Midline Upper Umbilicus Continuous Continuous # Voids 5 Date of Last Bowel Movement 09/26/18 09/27/18 09/26/18 # Bowel Movements 1 1 - Constitutional no acute distress - Routine HEENT Exam Head: Present: normocephalic - Routine Neck Exam Present: supple - Routine Respiratory Exam Present: CTA bilaterally - Routine Cardiovascular Exam Present: S1, S2 - Routine Abdominal Exam Present: soft - Routine Extremities Exam Comments: no noelle - Urinary Catheter Management Indwelling Urethral Catheter Cath placed during this visit: yes, but has since been removed by the nurse Reason for continuing: Hourly intake/output Insertion date: 09/25/18 Removal date: 09/26/18 Removal time: 15:20 Results 09/26/18 06:05 09/27/18 02:52 Cardiac Enzymes 09/25/18 09/25/18 09/26/18 Range/Units 13:54 21:30 03:20 Troponin I Less than 0.02 L Less than 0.02 L Less than 0.02 L (0.02-0.05) ng/mL B-Natriuretic Peptide (0-100) pg/mL 09/26/18 09/27/18 Range/Units 03:20 02:52 Troponin I (0.02-0.05) ng/mL B-Natriuretic Peptide 371 H 284 H (0-100) pg/mL Coagulation 09/26/18 09/27/18 Range/Units 03:20 02:52 B-Natriuretic Peptide 371 H 284 H (0-100) pg/mL CBC 09/26/18 Range/Units 06:05 WBC 8.2 (4.0-11.0) th/mm3 RBC 4.29 L (4.50-5.90) mil/mm3 Hgb 13.0 (13.0-17.0) gm/dL Hct 37.7 L (39.0-51.0) % Plt Count 189 (150-450) th/mm3 Comprehensive Metabolic Panel 09/25/18 09/25/18 09/26/18 Range/Units 13:54 13:54 03:20 Sodium 140 Cancelled 142 (136-145) meq/L Potassium 4.1 Cancelled 3.8 (3.5-5.1) meq/L Chloride 107 Cancelled 107 (98-107) meq/L Carbon Dioxide 27.4 Cancelled 27.4 (21.0-32.0) meq/L BUN 20 H Cancelled 18 (7-18) mg/dL Creatinine 1.23 Cancelled 1.25 (0.60-1.30) mg/dL Calcium 7.9 L Cancelled 7.9 L (8.5-10.1) mg/dL 09/27/18 Range/Units 02:52 Sodium 141 (136-145) meq/L Potassium 3.7 (3.5-5.1) meq/L Chloride 107 (98-107) meq/L Carbon Dioxide 26.2 (21.0-32.0) meq/L BUN 20 H (7-18) mg/dL Creatinine 1.25 (0.60-1.30) mg/dL Calcium 8.2 L (8.5-10.1) mg/dL Intake and Output 09/26/18 09/27/18 09/27/18 22:59 06:59 14:59 Intake Total 2275 / 2275 1095 / 1095 Output Total 1625 / 1625 1060 / 1060 Balance 650 / 650 35 / 35 Intake: IV 575 / 575 615 / 615 Precedex Inj 200 MCG In NS Inj 48 ML @ 0.2 MCG/KG/HR 6.05 mls/ hr IV.CONT TITRATE PRN Rx#: [id number] Zosyn 3.375 GM Premix 50 ML @ 50 / 50 100 / 100 100 mls/hr IV.SIG Q6H [facility] Rx#: [id number] Vancomycin Inj 1,500 MG In NS 515 / 515 515 / 515 Inj 500 ML @ 250 mls/hr IV.SIG Q12H [facility] Rx#:[id number] Oral 1700 / 1700 480 / 480 Output: Urine 150 / 150 1000 / 1000 Urine Amount (Catheter) 1400 / 1400 Indwelling Urethral Catheter 1400 / 1400 Wound Vac Amount 75 / 75 60 / 60 Midline Upper Umbilicus 75 / 75 60 / 60 Other: Mode Setting Midline Upper Umbilicus Continuous Continuous # Voids 1 5 Date of Last Bowel Movement 09/26/18 09/27/18 09/26/18 # Bowel Movements 1 Weight 125.1 kg - Imaging and Cardiology Imaging: Impressions Chest X-Ray 09/25/18 13:54 CONCLUSION: Diffuse interstitial prominence stable compared to previous exam. Minimal right basilar effusion unchanged from prior. ET tube in good position. Situs inversus. Chest X-Ray 09/26/18 06:00 CONCLUSION: Bilateral mostly basilar airspace disease similar to September 25. Assessment and Plan - Assessment (1) Cardiomyopathy Code(s): I42.9 - Cardiomyopathy, unspecified Status: Acute (2) Tobacco abuse Code(s): Z72.0 - Tobacco use Status: Acute (3) CAD (coronary artery disease) Code(s): I25.10 - Atherosclerotic heart disease of [place] coronary artery without angina pectoris Status: Acute (4) Cellulitis of abdominal wall Code(s): L03.311 - Cellulitis of abdominal wall Status: Acute (5) Atrial fibrillation with RVR Code(s): I48.91 - Unspecified atrial fibrillation Status: Acute (6) COPD (chronic obstructive pulmonary disease) Code(s): J44.9 - Chronic obstructive pulmonary disease, unspecified Status: Acute - Plan 1.) CAD - assymptomatic, check fasting lipids, lfts, on lovenox, start aspirin 81 mg qd if/when surgery is not indicated 2.) Cardiomyopathy - improving, ef=40%, start coreg. Increase altace to 5 mg qd and aldactone to 50 mg bid, f/u bmp/bnp/mag 3.) Afib rvr - rate controlled on cardizem, h/o gid due to pud requiring transfusion in 2016, uncertain f/u due to lack of insurance; on lovenox, chadsvasc score =4, will consider noac or coumadin if no bleeding on lovenox and patient has f/u with pcp 4.) Patient strongly advised to stop smoking 5.) Situs inversus
--- NOTE | 2018-09-27 17:10 | P.PNIM ---
Subjective Interval history: Patient is laying down. Patient has some shortness of breath when he begins to move around. No other complaints. Physical Exam Vital signs: Vital Signs 09/26/18 17:00 09/26/18 17:28 09/26/18 17:34 Temperature Pulse Rate 83 Respiratory Rate 24 22 25 H Blood Pressure 123/71 Pulse Oximetry 91 L 09/26/18 18:00 09/26/18 18:42 09/26/18 20:00 Temperature Pulse Rate 86 86 79 Respiratory Rate 28 H 32 H Blood Pressure 132/74 Pulse Oximetry 90 L 90 L 09/26/18 20:07 09/26/18 20:11 09/26/18 20:15 Temperature Pulse Rate 81 Respiratory Rate 24 Blood Pressure 133/68 Pulse Oximetry 93 L 09/26/18 22:45 09/26/18 22:46 09/26/18 23:00 Temperature Pulse Rate 89 Respiratory Rate 34 H Blood Pressure 141/79 H Pulse Oximetry 86 L 87 L 09/27/18 00:00 09/27/18 01:00 09/27/18 02:00 Temperature 98.7 F Pulse Rate 84 83 84 Respiratory Rate 34 H 29 H 33 H Blood Pressure 130/77 139/106 H Pulse Oximetry 87 L 89 L 90 L 09/27/18 02:12 09/27/18 03:00 09/27/18 04:00 Temperature Pulse Rate 86 83 79 Respiratory Rate 31 H 27 H 26 H Blood Pressure 144/98 H Pulse Oximetry 91 L 93 L 95 09/27/18 05:07 09/27/18 05:09 09/27/18 05:41 Temperature Pulse Rate 92 H 88 80 Respiratory Rate 28 H 24 Blood Pressure 160/102 H 161/105 H 150/92 H Pulse Oximetry 86 L 95 09/27/18 06:00 09/27/18 06:11 09/27/18 07:00 Temperature 97.6 F Pulse Rate 82 86 84 Respiratory Rate 24 25 H 22 Blood Pressure 134/90 Pulse Oximetry 96 94 L 95 09/27/18 07:01 09/27/18 08:00 09/27/18 08:01 Temperature Pulse Rate 85 84 88 Respiratory Rate 28 H 25 H 21 Blood Pressure 142/101 H 148/106 H Pulse Oximetry 94 L 91 L 93 L 09/27/18 08:45 09/27/18 08:50 09/27/18 09:00 Temperature Pulse Rate 75 90 87 Respiratory Rate 23 36 H 29 H Blood Pressure 151/112 H 155/101 H Pulse Oximetry 93 L 87 L 88 L 09/27/18 09:01 09/27/18 10:00 09/27/18 10:01 Temperature Pulse Rate 88 82 80 Respiratory Rate 30 H 26 H 27 H Blood Pressure 165/117 H 142/91 H Pulse Oximetry 88 L 89 L 88 L 09/27/18 11:00 09/27/18 11:01 09/27/18 12:00 Temperature 97.6 F Pulse Rate 75 75 82 Respiratory Rate 25 H 26 H 21 Blood Pressure 142/83 H Pulse Oximetry 90 L 88 L 81 L 09/27/18 12:01 Temperature Pulse Rate 75 Respiratory Rate 31 H Blood Pressure 133/93 H Pulse Oximetry 82 L Intake & Output 09/26/18 09/27/18 09/27/18 18:59 06:59 18:59 Intake Total 2545 / 2545 1255 / 1255 50 / 50 Output Total 1475 / 1475 1210 / 1210 Balance 1070 / 1070 45 / 45 50 / 50 Weight 125.1 kg Intake: IV 865 / 865 625 / 625 50 / 50 Precedex Inj 200 MCG In NS Inj 50 / 50 10 / 10 48 ML @ 0.2 MCG/KG/HR 6.05 mls/ hr IV.CONT TITRATE PRN Rx#: [id number] Diprivan 1000 mg/100 ml Inj 1, 200 / 200 000 mg In 100 ml @ 50 MCG/KG/ MIN 36.33 mls/hr IV.CONT TITRATE PRN Rx#:[id number] Zosyn 3.375 GM Premix 50 ML @ 100 / 100 100 / 100 50 / 50 100 mls/hr IV.SIG Q6H [facility] Rx#: [id number] Vancomycin Inj 1,500 MG In NS 515 / 515 515 / 515 Inj 500 ML @ 250 mls/hr IV.SIG Q12H [facility] Rx#:[id number] Oral 1550 / 1550 630 / 630 Water Bolus Amount 130 / 130 Output: Urine 1150 / 1150 Urine Amount (Catheter) 1400 / 1400 Indwelling Urethral Catheter 1400 / 1400 Wound Vac Amount 75 / 75 60 / 60 Midline Upper Umbilicus 75 / 75 60 / 60 Other: Mode Setting Midline Upper Umbilicus Continuous Continuous Continuous # Voids 5 Date of Last Bowel Movement 09/26/18 09/27/18 09/26/18 # Bowel Movements 1 1 Narrative: General patient in no acute distress HEENT extraocular movements are intact, clear oropharyngeal mucosa, no JVD Cardiovascular S1-S2 audible Respiratory bibasilar crackles Abdomen soft, nontender, nondistended, normal bowel sounds Extremities trace edema bilateral lower extremities up to the shins Neuro cranial nerves II through XII intact - Urinary Catheter Management Indwelling Urethral Catheter Cath placed during this visit: yes, but has since been removed by the nurse Reason for continuing: Hourly intake/output Insertion date: 09/25/18 Removal date: 09/26/18 Removal time: 15:20 Results - Labs CBC & Chem 7: 09/26/18 06:05 09/27/18 02:52 Laboratory Results - last 24 hr 09/26/18 09/27/18 09/27/18 21:15 02:52 02:52 Sodium 141 Potassium 3.7 Chloride 107 Carbon Dioxide 26.2 Anion Gap 8 BUN 20 H Creatinine 1.25 Estimated GFR 60 L POC Glucose 152 H Random Glucose 103 Calcium 8.2 L Magnesium 2.2 B-Natriuretic Peptide 284 H 09/27/18 09/27/18 08:52 11:43 Sodium Potassium Chloride Carbon Dioxide Anion Gap BUN Creatinine Estimated GFR POC Glucose 111 H 101 Random Glucose Calcium Magnesium B-Natriuretic Peptide Microbiology 09/25/18 12:53 Abscess - Abdominal Gram Stain - Final 09/25/18 12:53 Abscess - Abdominal Wound Culture - Preliminary No growth in 48 hours 09/25/18 12:53 Abscess - Abdominal Gram Stain - Final 09/25/18 12:53 Abscess - Abdominal Wound Culture - Preliminary No growth in 48 hours 09/26/18 11:03 Blood - Peripheral Aerobic Blood Culture - Preliminary No growth in 1 day 09/26/18 11:03 Blood - Peripheral Anaerobic Blood Culture - Preliminary No growth in 1 day 09/26/18 10:58 Blood - Peripheral Aerobic Blood Culture - Preliminary No growth in 1 day 09/26/18 10:58 Blood - Peripheral Anaerobic Blood Culture - Preliminary No growth in 1 day 09/25/18 12:53 Abscess - Abdominal Fungal Smear - Final No fungal elements seen 09/25/18 12:53 Abscess - Abdominal Acid Fast Bacilli Smear - Final No acid fast bacilli seen 09/25/18 12:53 Abscess - Abdominal Acid Fast Bacilli Smear - Final No acid fast bacilli seen - Procedures None Assessment and Plan - Plan This patient is a 58-year-old male with a history of TIA, colon cancer, COPD, diabetes mellitus, history of abdominal repair approximately [address] Lau who presented to the emergency department and was found to be in atrial for ablation with rapid ventricular rate. He also had abdominal wall cellulitis. Patient was intubated for surgical procedure and initially it was difficult to extubate him. He is now s/p extubation yesterday. Now requiring supplemental oxygen. 1. Atrial for ablation with rapid ventricular rate/atrial flutter 2. Acute hypoxic respiratory failure Heart rate currently under control with Cardizem currently. According to the nurses the patient went in and out of atrial flutter a couple times today. Patient was a symptomatic. Continue Coreg, and diltiazem. Patient is currently on Lovenox for anticoagulation. As per cardiology if the patient does not have any bleeding while on Lovenox he will be transitioned to Noac or Coumadin. Cardiology following the patient. Chest x-ray shows some congestion from yesterday, will give the patient a push of Lasix today. We will continue to try to attempt to wean the patient off supplemental O2. 2. Abdominal wall cellulitis Patient is currently on IV antibiotics which will be continued. Surgery following the patient, patient is status post incision and drainage of the subcutaneous abdominal abscess Patient was scheduled for incision and drainage again today however the patient went back into atrial flutter and the procedure was canceled for today. Likely rescheduled for tomorrow. Diet will be started for today, n.p.o. past midnight. 3. Diabetes mellitus Blood sugars currently under control ranging between 100 and 150. 4. Tobacco smoking 5. COPD The patient was counseled on tobacco smoking. DuoNeb treatments will be given as needed. Symbicort added to the patient medication regimen DVT prophylaxis, patient is currently on Lovenox.
--- NOTE | 2018-09-27 18:05 | P.PNGS ---
Subjective Patient reports: no new complaints Interval history: DAILY PROGRESS NOTE FOR SURGICAL ATTENDING, DR. MELANY CORONADO Patient still in the ICU had bouts of atrial fibrillation with rapid ventricular response up to 150 Physical Exam Vital signs: Vital Signs 09/26/18 18:42 09/26/18 20:00 09/26/18 20:07 Temperature Pulse Rate 86 79 81 Respiratory Rate 32 H 24 Blood Pressure Pulse Oximetry 90 L 09/26/18 20:11 09/26/18 20:15 09/26/18 22:45 Temperature Pulse Rate Respiratory Rate Blood Pressure 133/68 141/79 H Pulse Oximetry 93 L 09/26/18 22:46 09/26/18 23:00 09/27/18 00:00 Temperature 98.7 F Pulse Rate 89 84 Respiratory Rate 34 H 34 H Blood Pressure Pulse Oximetry 86 L 87 L 87 L 09/27/18 01:00 09/27/18 02:00 09/27/18 02:12 Temperature Pulse Rate 83 84 86 Respiratory Rate 29 H 33 H 31 H Blood Pressure 130/77 139/106 H 144/98 H Pulse Oximetry 89 L 90 L 91 L 09/27/18 03:00 09/27/18 04:00 09/27/18 05:07 Temperature Pulse Rate 83 79 92 H Respiratory Rate 27 H 26 H Blood Pressure 160/102 H Pulse Oximetry 93 L 95 09/27/18 05:09 09/27/18 05:41 09/27/18 06:00 Temperature Pulse Rate 88 80 82 Respiratory Rate 28 H 24 24 Blood Pressure 161/105 H 150/92 H Pulse Oximetry 86 L 95 96 09/27/18 06:11 09/27/18 07:00 09/27/18 07:01 Temperature 97.6 F Pulse Rate 86 84 85 Respiratory Rate 25 H 22 28 H Blood Pressure 134/90 142/101 H Pulse Oximetry 94 L 95 94 L 09/27/18 08:00 09/27/18 08:01 09/27/18 08:45 Temperature Pulse Rate 84 88 75 Respiratory Rate 25 H 21 23 Blood Pressure 148/106 H 151/112 H Pulse Oximetry 91 L 93 L 93 L 09/27/18 08:50 09/27/18 09:00 09/27/18 09:01 Temperature Pulse Rate 90 87 88 Respiratory Rate 36 H 29 H 30 H Blood Pressure 155/101 H 165/117 H Pulse Oximetry 87 L 88 L 88 L 09/27/18 10:00 09/27/18 10:01 09/27/18 11:00 Temperature Pulse Rate 82 80 75 Respiratory Rate 26 H 27 H 25 H Blood Pressure 142/91 H Pulse Oximetry 89 L 88 L 90 L 09/27/18 11:01 09/27/18 12:00 09/27/18 12:01 Temperature 97.6 F Pulse Rate 75 82 75 Respiratory Rate 26 H 21 31 H Blood Pressure 142/83 H 133/93 H Pulse Oximetry 88 L 81 L 82 L Intake & Output 09/26/18 09/27/18 09/27/18 18:59 06:59 18:59 Intake Total 2545 / 2545 1255 / 1255 50 / 50 Output Total 1475 / 1475 1210 / 1210 Balance 1070 / 1070 45 / 45 50 / 50 Weight 125.1 kg Intake: IV 865 / 865 625 / 625 50 / 50 Precedex Inj 200 MCG In NS Inj 50 / 50 10 / 10 48 ML @ 0.2 MCG/KG/HR 6.05 mls/ hr IV.CONT TITRATE PRN Rx#: [id number] Diprivan 1000 mg/100 ml Inj 1, 200 / 200 000 mg In 100 ml @ 50 MCG/KG/ MIN 36.33 mls/hr IV.CONT TITRATE PRN Rx#:[id number] Zosyn 3.375 GM Premix 50 ML @ 100 / 100 100 / 100 50 / 50 100 mls/hr IV.SIG Q6H [facility] Rx#: [id number] Vancomycin Inj 1,500 MG In NS 515 / 515 515 / 515 Inj 500 ML @ 250 mls/hr IV.SIG Q12H [facility] Rx#:[id number] Oral 1550 / 1550 630 / 630 Water Bolus Amount 130 / 130 Output: Urine 1150 / 1150 Urine Amount (Catheter) 1400 / 1400 Indwelling Urethral Catheter 1400 / 1400 Wound Vac Amount 75 / 75 60 / 60 Midline Upper Umbilicus 75 / 75 60 / 60 Other: Mode Setting Midline Upper Umbilicus Continuous Continuous Continuous # Voids 5 Date of Last Bowel Movement 09/26/18 09/27/18 09/26/18 # Bowel Movements 1 1 Narrative: General patient in no acute distress VAC dressing removed Good granulation tissue in wound measuring 4 x 6 cm Wet-to-dry dressings applied - Urinary Catheter Management Indwelling Urethral Catheter Cath placed during this visit: yes, but has since been removed by the nurse Reason for continuing: Hourly intake/output Insertion date: 09/25/18 Removal date: 09/26/18 Removal time: 15:20 Results - Labs 09/26/18 06:05 09/27/18 02:52 Laboratory Results - last 24 hr 09/26/18 09/27/18 09/27/18 21:15 02:52 02:52 Sodium 141 Potassium 3.7 Chloride 107 Carbon Dioxide 26.2 Anion Gap 8 BUN 20 H Creatinine 1.25 Estimated GFR 60 L POC Glucose 152 H Random Glucose 103 Calcium 8.2 L Magnesium 2.2 B-Natriuretic Peptide 284 H 09/27/18 09/27/18 09/27/18 08:52 11:43 17:41 Sodium Potassium Chloride Carbon Dioxide Anion Gap BUN Creatinine Estimated GFR POC Glucose 111 H 101 82 Random Glucose Calcium Magnesium B-Natriuretic Peptide - Imaging Imaging: ITS Impressions Abdomen/Pelvis CT 09/19/18 17:31 CONCLUSION: 1. Previous ventral hernia repair. Associated large, chronic and nonindurated appearing intraperitoneal fluid collection is without appreciable change but there is a new, small and indurated appearing subcutaneous fluid collection at the umbilicus. Just above the subcutaneous fluid collection is a new area of herniated fat. 2. Enlarged and fatty infiltrated liver, similar to before. 3. No acute abnormalities are seen within the abdominal or pelvic cavity. Patient has situs inversus. There is a moderate size hiatal hernia. Chest CTA 09/19/18 17:31 CONCLUSION: 1. No pulmonary embolus. 2. Very mild dependent atelectasis of both lungs. No pneumonia, effusion or pneumothorax. 3. Mild to moderate emphysema. 4. Coronary artery calcification. 5. Moderate size hiatal hernia. 6. Situs inversus. Needle Aspiration US 09/21/18 00:00 CONCLUSION: 1. Uncomplicated ultrasound-guided aspiration of superficial subcutaneous periumbilical fluid collection, as above. Abdomen X-Ray 09/24/18 00:00 CONCLUSION: Nonspecific intestinal gas pattern Chest X-Ray 09/26/18 06:00 CONCLUSION: Bilateral mostly basilar airspace disease similar to September 25. Assessment and Plan - Assessment (1) Cellulitis of abdominal wall Code(s): L03.311 - Cellulitis of abdominal wall Status: Acute Plan: 58 year old male with abdominal cellulitis; prior hernia repair and mesh present -POD1 I&D of subcutaneous abdominal abscess with Wound Vac placement -Vent per [facility] -Plan for repeat I&D with Wound Vac change in OR tomorrow -Obtain consents -Regular diet tonight; NPO after MN (2) Situs inversus totalis Code(s): Q89.3 - Situs inversus Status: Acute (3) History of colon cancer Code(s): Z85.038 - Personal history of other malignant neoplasm of large intestine Status: Acute (4) Subcutaneous abscess Code(s): L02.91 - Cutaneous abscess, unspecified Status: Acute - Plan NOTE FOR SURGICAL ATTENDING, DR. MELANY CORONADO Patient is progressing on his wound He had some cardiac problems today with atrial fibrillation rapid ventricular response Continues to be in the ICU Plan for OR canceled we will proceed with wet-to-dry dressings until healed Reviewed pathology with the patient I attest that I had a [id number] encounter with the patient on the same day, and personally performed and documented my assessment and findings in the medical record. The following services were provided during this hospital visit: Chart data review, vital sign assessments/reviewing monitor data Review of consultations notes if present. Medication orders/review and/or management Ordering and/or reviewing lab tests Ordering and/or interpreting/reviewing x-rays and/or diagnostic studies Care of the patient and discussion of the patient with the care team Documentation time To help prompt me to consider important information that might be impacting today's encounter and assessment, Information from prior notes written by myself or my colleagues may have been "brought forward/copy and pasted" into today's note. (4) Subcutaneous abscess Qualifiers: Site of cutaneous abscess: trunk Site of cutaneous abscess of trunk: abdominal wall Qualified Code(s): L02.211 - Cutaneous abscess of abdominal wall
--- NOTE | 2018-09-27 18:32 | P.PNID ---
Subjective Remarks: Patient is a 58-year-old male, presented to the hospital complaining of abdominal pain, swelling and redness. Patient has had multiple hernia repairs in the past. On reviewing his records it looks like he has had a chronic intraperitoneal fluid collection right where his hernia mesh is located. It had been aspirated in the past, and it looks like the last one was done in January 2018, and cultures came back negative. Patient stated he has had an episode of abdominal wall cellulitis, may be about 6 months ago, and he was given an oral antibiotics with resolution of the redness. The last abdominal surgery he has had was back in May of last year and at that time he was diagnosed to have a colon cancer and he underwent exploratory laparotomy, lysis of adhesions, right sided colectomy, and I believe hernia surgery. He has received chemotherapy, and the last time he had chemo was about 6 months ago. His current problems started about 5 days ago when he noted redness on his anterior abdominal wall. In the last 3 days, he had noted a focal area of swelling which apparently he has not had in the past. He has not had any fever chills or sweats. He has chronic nausea but no vomiting. Denies any diarrhea. Has not had any respiratory complaint or any urinary complaint. Patient has been admitted with a diagnosis of abdominal wall cellulitis. He had CT of the abdomen and pelvis which is showing a stable size of the intraperitoneal fluid collection that has been there and close to his hernia mesh, but there is a new superficial fluid collection that was also noted. His WBC is normal, and he has been afebrile. He is currently on vancomycin and Zosyn. Surgery is evaluating the patient. Infectious disease consultation has been requested to assist with evaluation and treatment of abdominal cellulitis, and possibly an infected fluid collection Notes reviewed Had surgery 09/25 Wound vac removed C/S from OR negative BP ok Temps ok Problem with atrial arrhythmia earlier - NSR now Aspiration of superficial fluid last week negative C/O pain at op site (+) BM Antibiotics: Vancomycin Zosyn Past Medical History: COPD (chronic obstructive pulmonary disease) Colon cancer Diabetes mellitus Diverticulosis HTN (hypertension) TIA (transient ischemic attack) Umbilical hernia History of hernia repair Allergies/Adverse Reactions: Allergies No Known Allergies Allergy (Verified 09/19/18 17:25) Objective Vital Signs 09/26/18 18:42 09/26/18 20:00 09/26/18 20:07 Temperature Pulse Rate 86 79 81 Respiratory Rate 32 H 24 Blood Pressure Pulse Oximetry 90 L 09/26/18 20:11 09/26/18 20:15 09/26/18 22:45 Temperature Pulse Rate Respiratory Rate Blood Pressure 133/68 141/79 H Pulse Oximetry 93 L 09/26/18 22:46 09/26/18 23:00 09/27/18 00:00 Temperature 98.7 F Pulse Rate 89 84 Respiratory Rate 34 H 34 H Blood Pressure Pulse Oximetry 86 L 87 L 87 L 09/27/18 01:00 09/27/18 02:00 09/27/18 02:12 Temperature Pulse Rate 83 84 86 Respiratory Rate 29 H 33 H 31 H Blood Pressure 130/77 139/106 H 144/98 H Pulse Oximetry 89 L 90 L 91 L 09/27/18 03:00 09/27/18 04:00 09/27/18 05:07 Temperature Pulse Rate 83 79 92 H Respiratory Rate 27 H 26 H Blood Pressure 160/102 H Pulse Oximetry 93 L 95 09/27/18 05:09 09/27/18 05:41 09/27/18 06:00 Temperature Pulse Rate 88 80 82 Respiratory Rate 28 H 24 24 Blood Pressure 161/105 H 150/92 H Pulse Oximetry 86 L 95 96 09/27/18 06:11 09/27/18 07:00 09/27/18 07:01 Temperature 97.6 F Pulse Rate 86 84 85 Respiratory Rate 25 H 22 28 H Blood Pressure 134/90 142/101 H Pulse Oximetry 94 L 95 94 L 09/27/18 08:00 09/27/18 08:01 09/27/18 08:45 Temperature Pulse Rate 84 88 75 Respiratory Rate 25 H 21 23 Blood Pressure 148/106 H 151/112 H Pulse Oximetry 91 L 93 L 93 L 09/27/18 08:50 09/27/18 09:00 09/27/18 09:01 Temperature Pulse Rate 90 87 88 Respiratory Rate 36 H 29 H 30 H Blood Pressure 155/101 H 165/117 H Pulse Oximetry 87 L 88 L 88 L 09/27/18 10:00 09/27/18 10:01 09/27/18 11:00 Temperature Pulse Rate 82 80 75 Respiratory Rate 26 H 27 H 25 H Blood Pressure 142/91 H Pulse Oximetry 89 L 88 L 90 L 09/27/18 11:01 09/27/18 12:00 09/27/18 12:01 Temperature 97.6 F Pulse Rate 75 82 75 Respiratory Rate 26 H 21 31 H Blood Pressure 142/83 H 133/93 H Pulse Oximetry 88 L 81 L 82 L 09/27/18 13:00 09/27/18 13:01 09/27/18 14:00 Temperature Pulse Rate 67 64 118 H Respiratory Rate 19 18 26 H Blood Pressure 135/86 Pulse Oximetry 90 L 90 L 89 L 09/27/18 14:01 09/27/18 15:00 09/27/18 15:01 Temperature Pulse Rate 116 H 81 84 Respiratory Rate 32 H 19 36 H Blood Pressure 145/95 H 139/86 Pulse Oximetry 87 L 91 L 91 L 09/27/18 16:00 09/27/18 17:00 09/27/18 17:01 Temperature 97.8 F Pulse Rate 69 72 69 Respiratory Rate 27 H 28 H Blood Pressure 139/88 Pulse Oximetry 91 L 90 L 91 L 09/27/18 18:00 Temperature Pulse Rate 80 Respiratory Rate 27 H Blood Pressure Pulse Oximetry 93 L Intake & Output 09/26/18 09/27/18 09/27/18 18:59 06:59 18:59 Intake Total 2545 / 2545 1255 / 1255 50 / 50 Output Total 1475 / 1475 1210 / 1210 Balance 1070 / 1070 45 / 45 50 / 50 Weight 125.1 kg Intake: IV 865 / 865 625 / 625 50 / 50 Precedex Inj 200 MCG In NS Inj 50 / 50 10 / 10 48 ML @ 0.2 MCG/KG/HR 6.05 mls/ hr IV.CONT TITRATE PRN Rx#: [id number] Diprivan 1000 mg/100 ml Inj 1, 200 / 200 000 mg In 100 ml @ 50 MCG/KG/ MIN 36.33 mls/hr IV.CONT TITRATE PRN Rx#:[id number] Zosyn 3.375 GM Premix 50 ML @ 100 / 100 100 / 100 50 / 50 100 mls/hr IV.SIG Q6H [facility] Rx#: [id number] Vancomycin Inj 1,500 MG In NS 515 / 515 515 / 515 Inj 500 ML @ 250 mls/hr IV.SIG Q12H [facility] Rx#:[id number] Oral 1550 / 1550 630 / 630 Water Bolus Amount 130 / 130 Output: Urine 1150 / 1150 Urine Amount (Catheter) 1400 / 1400 Indwelling Urethral Catheter 1400 / 1400 Wound Vac Amount 75 / 75 60 / 60 Midline Upper Umbilicus 75 / 75 60 / 60 Other: Mode Setting Midline Upper Umbilicus Continuous Continuous Continuous # Voids 5 Date of Last Bowel Movement 09/26/18 09/27/18 09/26/18 # Bowel Movements 1 1 09/25/18 12:53 Abscess - Abdominal Gram Stain - Final 09/25/18 12:53 Abscess - Abdominal Wound Culture - Preliminary No growth in 48 hours 09/25/18 12:53 Abscess - Abdominal Gram Stain - Final 09/25/18 12:53 Abscess - Abdominal Wound Culture - Preliminary No growth in 48 hours 09/26/18 11:03 Blood - Peripheral Aerobic Blood Culture - Preliminary No growth in 1 day 09/26/18 11:03 Blood - Peripheral Anaerobic Blood Culture - Preliminary No growth in 1 day 09/26/18 10:58 Blood - Peripheral Aerobic Blood Culture - Preliminary No growth in 1 day 09/26/18 10:58 Blood - Peripheral Anaerobic Blood Culture - Preliminary No growth in 1 day 09/25/18 12:53 Abscess - Abdominal Fungal Smear - Final No fungal elements seen 09/25/18 12:53 Abscess - Abdominal Fungal Culture - Pending 09/25/18 12:53 Abscess - Abdominal Acid Fast Bacilli Smear - Final No acid fast bacilli seen 09/25/18 12:53 Abscess - Abdominal Mycobacterial Culture - Pending 09/25/18 12:53 Abscess - Abdominal Acid Fast Bacilli Smear - Final No acid fast bacilli seen 09/25/18 12:53 Abscess - Abdominal Mycobacterial Culture - Pending 09/25/18 12:53 Abscess - Abdominal Fungal Smear - Final No fungal elements seen 09/25/18 12:53 Abscess - Abdominal Fungal Culture - Pending 09/21/18 15:30 Fluid - Other Gram Stain - Final 09/21/18 15:30 Fluid - Other Body Fluid Culture - Final No growth in 72 hours (aerobically and anaerobically ) Lab - Hematology Results 09/26/18 06:05 WBC 8.2 RBC 4.29 L Hgb 13.0 Hct 37.7 L MCV 87.8 MCH 30.3 MCHC 34.6 RDW 14.2 Plt Count 189 MPV 8.1 Lab - Chemistry Results 09/25/18 09/25/18 09/26/18 21:30 21:48 03:20 Sodium 142 Potassium 3.8 Chloride 107 Carbon Dioxide 27.4 Anion Gap 8 BUN 18 Creatinine 1.25 Estimated GFR 60 L POC Glucose 111 H Random Glucose 107 H Calcium 7.9 L Magnesium Total Creatine Kinase 46 40 Troponin I Less than 0.02 L Less than 0.02 L B-Natriuretic Peptide 09/26/18 09/26/18 09/26/18 03:20 03:23 09:34 Sodium Potassium Chloride Carbon Dioxide Anion Gap BUN Creatinine Estimated GFR POC Glucose 107 126 H Random Glucose Calcium Magnesium Total Creatine Kinase Troponin I B-Natriuretic Peptide 371 H 09/26/18 09/26/18 09/26/18 12:13 15:32 21:15 Sodium Potassium Chloride Carbon Dioxide Anion Gap BUN Creatinine Estimated GFR POC Glucose 107 98 152 H Random Glucose Calcium Magnesium Total Creatine Kinase Troponin I B-Natriuretic Peptide 09/27/18 09/27/18 09/27/18 02:52 02:52 08:52 Sodium 141 Potassium 3.7 Chloride 107 Carbon Dioxide 26.2 Anion Gap 8 BUN 20 H Creatinine 1.25 Estimated GFR 60 L POC Glucose 111 H Random Glucose 103 Calcium 8.2 L Magnesium 2.2 Total Creatine Kinase Troponin I B-Natriuretic Peptide 284 H 09/27/18 09/27/18 11:43 17:41 Sodium Potassium Chloride Carbon Dioxide Anion Gap BUN Creatinine Estimated GFR POC Glucose 101 82 Random Glucose Calcium Magnesium Total Creatine Kinase Troponin I B-Natriuretic Peptide Imaging: ITS Impressions Abdomen/Pelvis CT 09/19/18 17:31 CONCLUSION: 1. Previous ventral hernia repair. Associated large, chronic and nonindurated appearing intraperitoneal fluid collection is without appreciable change but there is a new, small and indurated appearing subcutaneous fluid collection at the umbilicus. Just above the subcutaneous fluid collection is a new area of herniated fat. 2. Enlarged and fatty infiltrated liver, similar to before. 3. No acute abnormalities are seen within the abdominal or pelvic cavity. Patient has situs inversus. There is a moderate size hiatal hernia. Chest CTA 09/19/18 17:31 CONCLUSION: 1. No pulmonary embolus. 2. Very mild dependent atelectasis of both lungs. No pneumonia, effusion or pneumothorax. 3. Mild to moderate emphysema. 4. Coronary artery calcification. 5. Moderate size hiatal hernia. 6. Situs inversus. Needle Aspiration US 09/21/18 00:00 CONCLUSION: 1. Uncomplicated ultrasound-guided aspiration of superficial subcutaneous periumbilical fluid collection, as above. Abdomen X-Ray 09/24/18 00:00 CONCLUSION: Nonspecific intestinal gas pattern Chest X-Ray 09/26/18 06:00 CONCLUSION: Bilateral mostly basilar airspace disease similar to September 25. Physical Exam: GENERAL: awake and alert, not in respiratory distress. SKIN: Cool and dry. No generalized rash, no ecchymoses and no evidence of embolic lesions. HEAD: Atraumatic. Normocephalic. No temporal wasting, or tenderness. EYES: [place] conjunctiva. No petechia or hemorrhage. No scleral icterus. No injection or drainage. EARS, NOSE AND THROAT: Nose without bleeding or purulent nasal discharge. Orally intubated. NECK: Trachea midline. Supple and not tender, no meningeal signs CARDIOVASCULAR: Regular rate and rhythm. No murmurs, rubs or gallops heard RESPIRATORY: Clear to auscultation. Breath sounds equal bilaterally. No rales , wheezing or rhonchi ABDOMEN: Soft, obese, has a wound with packing, bloody drainage. has hernia. Bowel sounds present and normoactive. No guarding. No rebound. EXTREMITIES: No clubbing, cyanosis, or edema. NEURO: Awake and alert, non-focal PSYCHIATRIC: Calm and cooperative LINE: No evidence of infection Assessment and Plan - Plan Impression Abdominal wall cellulitis - has superficial fluid collection, ?infected - better Chronic fluid collection intraperitoneal close to his hernia mesh S/P multiple hernia repair Hx colon CA S/P R hemicolectomy, S/P chemo COPD Obesity Fevers,, better Respiratory failure, extubated Recommendation Continue IV Vanco Continue Zosyn Follow new C/S Follow temps Monitor progress D/W RN
[2018-09-27] MEDS: Budesonide-Formoterol 80/4.5 MCG 6.9 GM Inhaler INH SCH (21:22)
[2018-09-28] MEDS: HYDROmorphone PF Inj 1 MG/ML Ampul IV.PUSH PRN ×5 (00:32→20:59)
[2018-09-28] MEDS: Vancomycin Inj 1,500 MG in Sodium Chlor 0.9% Inj 500 ML IV.SIG SCH ×2 (01:13→13:40)
[2018-09-28] MEDS: oxyCODONE/Acetaminophen 10/325 Tablet PO PRN ×3 (02:19→23:13)
[2018-09-28] MEDS: Insulin NovoLOG Aspart Correctional Sugar Inj SQ SCH ×5 (02:35→21:01)
[2018-09-28] MEDS: Oral Hygiene Kit OROPHARYNG SCH ×3 (03:24→16:53)
[2018-09-28] MEDS: Piperacil/Tazo 3.375 GM Premix 50 ML IV.SIG SCH ×4 (05:07→23:13)
[2018-09-28 05:55] LABS: Baso % (Auto) 0.8 % (0.0-2.0); Eos # (Auto) 0.2 th/mm3 (0.0-0.4); Eos % (Auto) 3.6 % (0.0-4.0); Hematocrit 38.1 % (39.0-51.0); Lymph # (Auto) 1.1 th/mm3 (1.0-4.8); Lymph % (Auto) 17.4 % (9.0-44.0); Mean Corpuscular HGB Conc 34.1 % (32.0-36.0); Mean Corpuscular Hemoglobin 29.3 pg (27.0-34.0); Mean Platelet Volume 7.9 fL (7.0-11.0); Mono # (Auto) 0.6 th/mm3 (0.0-0.9); Mono % (Auto) 8.7 % (0.0-8.0); Neut # (Auto) 4.5 th/mm3 (1.8-7.7); Neut % (Auto) 69.5 % (16.0-70.0); Platelet Count 211 th/mm3 (150-450); Red Blood Count 4.43 mil/mm3 (4.50-5.90); Red Cell Distribution Width 14.2 % (11.6-17.2); White Blood Count 6.5 th/mm3 (4.0-11.0)
[2018-09-28] MEDS: Budesonide-Formoterol 80/4.5 MCG 6.9 GM Inhaler INH SCH ×3 (06:09→21:33)
[2018-09-28 06:25] LABS: Calcium 7.9 mg/dL (8.5-10.1); Carbon Dioxide 27.1 meq/L (21.0-32.0); Magnesium 1.9 mg/dL (1.5-2.5); Potassium 3.7 meq/L (3.5-5.1)
[2018-09-28] MEDS: Aspirin 325 MG Tablet PO SCH (08:00)
[2018-09-28] MEDS: Carvedilol 12.5 MG Tablet PO SCH ×2 (08:00→21:01)
[2018-09-28] MEDS: Spironolactone 50 MG Tablet PO SCH ×2 (08:00→19:47)
[2018-09-28] MEDS: dilTIAZem 60 MG Tablet PO SCH ×4 (08:00→21:01)
[2018-09-28] MEDS: Chlorhexidine 0.12% Oral Kit 15 ML UDC OROPHARYNG SCH ×2 (08:00→21:33)
[2018-09-28] MEDS: Ramipril 5 MG Capsule PO SCH (08:01)
--- NOTE | 2018-09-28 12:58 | P.PNGS ---
Subjective Patient reports: no new complaints, feels better Interval history: DAILY PROGRESS NOTE FOR SURGICAL ATTENDING, DR. MELANY CORONADO Tolerating diet Physical Exam Vital signs: Initial Documented Vital Signs Temperature 99.5 F 09/19/18 16:55 Pulse Rate 99 H 09/19/18 16:55 Respiratory Rate 20 09/19/18 16:55 Blood Pressure 135/89 09/19/18 16:55 Pulse Oximetry 94 L 09/19/18 16:55 Last Documented Vital Signs Temperature 98.9 F 09/28/18 12:00 Pulse Rate 59 L 09/28/18 12:00 Respiratory Rate 25 H 09/28/18 12:00 Blood Pressure 138/69 09/28/18 10:00 Pulse Oximetry 90 L 09/28/18 12:00 Narrative: General patient in no acute distress VAC dressing removed Good granulation tissue in wound measuring 4 x 6 cm Wet-to-dry dressings applied - Urinary Catheter Management Indwelling Urethral Catheter Cath placed during this visit: yes, but has since been removed by the nurse Reason for continuing: Hourly intake/output Insertion date: 09/25/18 Removal date: 09/26/18 Removal time: 15:20 Results - Labs 09/28/18 05:21 09/28/18 05:21 Microbiology 09/26/18 11:03 Aerobic Blood Culture - Preliminary Blood - Peripheral No growth in 2 days Anaerobic Blood Culture - Preliminary No growth in 2 days 09/26/18 10:58 Aerobic Blood Culture - Preliminary Blood - Peripheral No growth in 2 days Anaerobic Blood Culture - Preliminary No growth in 2 days 09/25/18 12:53 Gram Stain - Final Abscess - Abdominal Wound Culture - Final No growth in 72 hours (aerobically and anaerobically) 09/25/18 12:53 Gram Stain - Final Abscess - Abdominal Wound Culture - Final No growth in 72 hours (aerobically and anaerobically) 09/25/18 12:53 Fungal Smear - Final Abscess - Abdominal No fungal elements seen 09/25/18 12:53 Acid Fast Bacilli Smear - Final Abscess - Abdominal No acid fast bacilli seen 09/25/18 12:53 Acid Fast Bacilli Smear - Final Abscess - Abdominal No acid fast bacilli seen 09/25/18 12:53 Fungal Smear - Final Abscess - Abdominal No fungal elements seen 09/21/18 15:30 Gram Stain - Final Fluid - Other Body Fluid Culture - Final No growth in 72 hours (aerobically and anaerobically) - Imaging Imaging: ITS Impressions Abdomen/Pelvis CT 09/19/18 17:31 CONCLUSION: 1. Previous ventral hernia repair. Associated large, chronic and nonindurated appearing intraperitoneal fluid collection is without appreciable change but there is a new, small and indurated appearing subcutaneous fluid collection at the umbilicus. Just above the subcutaneous fluid collection is a new area of herniated fat. 2. Enlarged and fatty infiltrated liver, similar to before. 3. No acute abnormalities are seen within the abdominal or pelvic cavity. Patient has situs inversus. There is a moderate size hiatal hernia. Chest CTA 09/19/18 17:31 CONCLUSION: 1. No pulmonary embolus. 2. Very mild dependent atelectasis of both lungs. No pneumonia, effusion or pneumothorax. 3. Mild to moderate emphysema. 4. Coronary artery calcification. 5. Moderate size hiatal hernia. 6. Situs inversus. Needle Aspiration US 09/21/18 00:00 CONCLUSION: 1. Uncomplicated ultrasound-guided aspiration of superficial subcutaneous periumbilical fluid collection, as above. Abdomen X-Ray 09/24/18 00:00 CONCLUSION: Nonspecific intestinal gas pattern Chest X-Ray 09/26/18 06:00 CONCLUSION: Bilateral mostly basilar airspace disease similar to September 25. Assessment and Plan - Assessment (1) Cellulitis of abdominal wall Code(s): L03.311 - Cellulitis of abdominal wall Status: Acute Plan: 58 year old male with abdominal cellulitis; prior hernia repair and mesh present -POD I&D of subcutaneous abdominal abscess with Wound Vac placement - -Regular diet tonight; Discussed with Dr. Imer Paul to transition to p.o. antibiotics Wet to dries twice daily Follow-up in my office 7-10 days (2) Situs inversus totalis Code(s): Q89.3 - Situs inversus Status: Acute (3) History of colon cancer Code(s): Z85.038 - Personal history of other malignant neoplasm of large intestine Status: Acute (4) Subcutaneous abscess Code(s): L02.91 - Cutaneous abscess, unspecified Status: Acute - Plan NOTE FOR SURGICAL ATTENDING, DR. MELANY CORONADO Patient is progressing on his wound He had some cardiac problems today with atrial fibrillation rapid ventricular response Continues to be in the ICU Plan for OR canceled we will proceed with wet-to-dry dressings until healed Reviewed pathology with the patient Discussed with infectious disease Okay to discharge when cleared by cardiology and infectious disease I attest that I had a [id number] encounter with the patient on the same day, and personally performed and documented my assessment and findings in the medical record. The following services were provided during this hospital visit: Chart data review, vital sign assessments/reviewing monitor data Review of consultations notes if present. Medication orders/review and/or management Ordering and/or reviewing lab tests Ordering and/or interpreting/reviewing x-rays and/or diagnostic studies Care of the patient and discussion of the patient with the care team Documentation time To help prompt me to consider important information that might be impacting today's encounter and assessment, Information from prior notes written by myself or my colleagues may have been "brought forward/copy and pasted" into today's note. (4) Subcutaneous abscess Qualifiers: Site of cutaneous abscess: trunk Site of cutaneous abscess of trunk: abdominal wall Qualified Code(s): L02.211 - Cutaneous abscess of abdominal wall
--- NOTE | 2018-09-28 14:33 | P.PNID ---
Subjective Remarks: Patient is a 58-year-old male, presented to the hospital complaining of abdominal pain, swelling and redness. Patient has had multiple hernia repairs in the past. On reviewing his records it looks like he has had a chronic intraperitoneal fluid collection right where his hernia mesh is located. It had been aspirated in the past, and it looks like the last one was done in January 2018, and cultures came back negative. Patient stated he has had an episode of abdominal wall cellulitis, may be about 6 months ago, and he was given an oral antibiotics with resolution of the redness. The last abdominal surgery he has had was back in May of last year and at that time he was diagnosed to have a colon cancer and he underwent exploratory laparotomy, lysis of adhesions, right sided colectomy, and I believe hernia surgery. He has received chemotherapy, and the last time he had chemo was about 6 months ago. His current problems started about 5 days ago when he noted redness on his anterior abdominal wall. In the last 3 days, he had noted a focal area of swelling which apparently he has not had in the past. He has not had any fever chills or sweats. He has chronic nausea but no vomiting. Denies any diarrhea. Has not had any respiratory complaint or any urinary complaint. Patient has been admitted with a diagnosis of abdominal wall cellulitis. He had CT of the abdomen and pelvis which is showing a stable size of the intraperitoneal fluid collection that has been there and close to his hernia mesh, but there is a new superficial fluid collection that was also noted. His WBC is normal, and he has been afebrile. He is currently on vancomycin and Zosyn. Surgery is evaluating the patient. Infectious disease consultation has been requested to assist with evaluation and treatment of abdominal cellulitis, and possibly an infected fluid collection Notes reviewed Had surgery 09/25 Afebrile D/W Dr Lau - had a lot of necrotic tissue seen in surgery - no undermining C/S from OR negative BP ok Temps ok Aspiration of superficial fluid last week negative C/O pain at op site (+) BM Antibiotics: Vancomycin Zosyn Past Medical History: COPD (chronic obstructive pulmonary disease) Colon cancer Diabetes mellitus Diverticulosis HTN (hypertension) TIA (transient ischemic attack) Umbilical hernia History of hernia repair Allergies/Adverse Reactions: Allergies No Known Allergies Allergy (Verified 09/19/18 17:25) Objective Vital Signs 09/27/18 15:00 09/27/18 15:01 09/27/18 16:00 Temperature 97.8 F Pulse Rate 81 84 69 Respiratory Rate 19 36 H Blood Pressure 139/86 Pulse Oximetry 91 L 91 L 91 L 09/27/18 17:00 09/27/18 17:01 09/27/18 18:00 Temperature Pulse Rate 72 69 80 Respiratory Rate 27 H 28 H 27 H Blood Pressure 139/88 Pulse Oximetry 90 L 91 L 93 L 09/27/18 19:44 09/27/18 20:00 09/27/18 20:02 Temperature 98.5 F Pulse Rate 84 73 Respiratory Rate 25 H Blood Pressure 123/75 Pulse Oximetry 88 L 09/27/18 21:11 09/27/18 22:00 09/27/18 22:06 Temperature Pulse Rate 77 72 72 Respiratory Rate 26 H 23 26 H Blood Pressure 127/61 Pulse Oximetry 92 L 88 L 09/27/18 23:00 09/28/18 00:00 09/28/18 00:15 Temperature 98.6 F Pulse Rate 58 L 70 78 Respiratory Rate 23 20 22 Blood Pressure 134/98 H 134/98 H Pulse Oximetry 86 L 90 L 93 L 09/28/18 01:00 09/28/18 02:00 09/28/18 02:20 Temperature Pulse Rate 65 71 65 Respiratory Rate 25 H 33 H 32 H Blood Pressure 123/74 Pulse Oximetry 87 L 87 L 87 L 09/28/18 03:00 09/28/18 03:14 09/28/18 03:20 Temperature Pulse Rate 77 69 Respiratory Rate 25 H 24 Blood Pressure 150/86 H Pulse Oximetry 89 L 09/28/18 04:00 09/28/18 05:00 09/28/18 06:00 Temperature 98.7 F Pulse Rate 68 59 L 53 L Respiratory Rate 28 H 17 13 Blood Pressure 132/88 138/82 137/81 Pulse Oximetry 89 L 93 L 93 L 09/28/18 07:07 09/28/18 07:44 09/28/18 08:00 Temperature 98.7 F Pulse Rate 81 76 68 Respiratory Rate 27 H Blood Pressure Pulse Oximetry 92 L 93 L 09/28/18 08:06 09/28/18 08:26 09/28/18 09:50 Temperature 98.6 F Pulse Rate 71 69 Respiratory Rate 34 H 17 Blood Pressure 135/90 Pulse Oximetry 92 L 90 L 09/28/18 10:00 09/28/18 11:00 09/28/18 12:00 Temperature 98.9 F Pulse Rate 76 61 59 L Respiratory Rate 39 H 23 25 H Blood Pressure 138/69 Pulse Oximetry 92 L 87 L 90 L Intake & Output 09/27/18 09/28/18 09/28/18 18:59 06:59 18:59 Intake Total 1974 / 1974 1335 / 1335 50 / 50 Output Total 1500 / 1500 400 / 400 Balance 475 / 475 935 / 935 50 / 50 Weight 115.8 kg Intake: IV 615 / 615 615 / 615 50 / 50 Zosyn 3.375 GM Premix 50 ML @ 100 / 100 100 / 100 50 / 50 100 mls/hr IV.SIG Q6H [facility] Rx#: [id number] Vancomycin Inj 1,500 MG In NS 515 / 515 515 / 515 Inj 500 ML @ 250 mls/hr IV.SIG Q12H [facility] Rx#:[id number] Oral 360 / 360 720 / 720 Anesthesia Amount 1000 / 1000 Output: Urine 1500 / 1500 400 / 400 Other: Mode Setting Midline Upper Umbilicus Continuous # Voids 7 3 Date of Last Bowel Movement 09/26/18 09/28/18 09/28/18 # Bowel Movements 1 3 09/26/18 11:03 Blood - Peripheral Aerobic Blood Culture - Preliminary No growth in 2 days 09/26/18 11:03 Blood - Peripheral Anaerobic Blood Culture - Preliminary No growth in 2 days 09/26/18 10:58 Blood - Peripheral Aerobic Blood Culture - Preliminary No growth in 2 days 09/26/18 10:58 Blood - Peripheral Anaerobic Blood Culture - Preliminary No growth in 2 days 09/25/18 12:53 Abscess - Abdominal Gram Stain - Final 09/25/18 12:53 Abscess - Abdominal Wound Culture - Final No growth in 72 hours (aerobically and anaerobically ) 09/25/18 12:53 Abscess - Abdominal Gram Stain - Final 09/25/18 12:53 Abscess - Abdominal Wound Culture - Final No growth in 72 hours (aerobically and anaerobically ) 09/25/18 12:53 Abscess - Abdominal Fungal Smear - Final No fungal elements seen 09/25/18 12:53 Abscess - Abdominal Fungal Culture - Pending 09/25/18 12:53 Abscess - Abdominal Acid Fast Bacilli Smear - Final No acid fast bacilli seen 09/25/18 12:53 Abscess - Abdominal Mycobacterial Culture - Pending 09/25/18 12:53 Abscess - Abdominal Acid Fast Bacilli Smear - Final No acid fast bacilli seen 09/25/18 12:53 Abscess - Abdominal Mycobacterial Culture - Pending 09/25/18 12:53 Abscess - Abdominal Fungal Smear - Final No fungal elements seen 09/25/18 12:53 Abscess - Abdominal Fungal Culture - Pending Lab - Hematology Results 09/28/18 05:21 WBC 6.5 RBC 4.43 L Hgb 13.0 Hct 38.1 L MCV 86.0 MCH 29.3 MCHC 34.1 RDW 14.2 Plt Count 211 MPV 7.9 Neut % (Auto) 69.5 Lymph % (Auto) 17.4 [place] % (Auto) 8.7 H Eos % (Auto) 3.6 Baso % (Auto) 0.8 Neut # (Auto) 4.5 Lymph # (Auto) 1.1 [place] # (Auto) 0.6 Eos # (Auto) 0.2 Baso # (Auto) 0.0 WBC Differential . Differential Comment Auto diff final Lab - Chemistry Results 09/26/18 09/26/18 09/27/18 15:32 21:15 02:52 Sodium Potassium Chloride Carbon Dioxide Anion Gap BUN Creatinine Estimated GFR POC Glucose 98 152 H Random Glucose Calcium Magnesium B-Natriuretic Peptide 284 H 09/27/18 09/27/18 09/27/18 02:52 08:52 11:43 Sodium 141 Potassium 3.7 Chloride 107 Carbon Dioxide 26.2 Anion Gap 8 BUN 20 H Creatinine 1.25 Estimated GFR 60 L POC Glucose 111 H 101 Random Glucose 103 Calcium 8.2 L Magnesium 2.2 B-Natriuretic Peptide 09/27/18 09/27/18 09/28/18 17:41 21:25 02:22 Sodium Potassium Chloride Carbon Dioxide Anion Gap BUN Creatinine Estimated GFR POC Glucose 82 140 H 117 H Random Glucose Calcium Magnesium B-Natriuretic Peptide 09/28/18 09/28/18 09/28/18 05:21 05:21 07:32 Sodium 141 Potassium 3.7 Chloride 107 Carbon Dioxide 27.1 Anion Gap 7 BUN 22 H Creatinine 1.18 Estimated GFR 64 L POC Glucose 137 H Random Glucose 150 H Calcium 7.9 L Magnesium 1.9 B-Natriuretic Peptide 343 H Imaging: ITS Impressions Abdomen/Pelvis CT 09/19/18 17:31 CONCLUSION: 1. Previous ventral hernia repair. Associated large, chronic and nonindurated appearing intraperitoneal fluid collection is without appreciable change but there is a new, small and indurated appearing subcutaneous fluid collection at the umbilicus. Just above the subcutaneous fluid collection is a new area of herniated fat. 2. Enlarged and fatty infiltrated liver, similar to before. 3. No acute abnormalities are seen within the abdominal or pelvic cavity. Patient has situs inversus. There is a moderate size hiatal hernia. Chest CTA 09/19/18 17:31 CONCLUSION: 1. No pulmonary embolus. 2. Very mild dependent atelectasis of both lungs. No pneumonia, effusion or pneumothorax. 3. Mild to moderate emphysema. 4. Coronary artery calcification. 5. Moderate size hiatal hernia. 6. Situs inversus. Needle Aspiration US 09/21/18 00:00 CONCLUSION: 1. Uncomplicated ultrasound-guided aspiration of superficial subcutaneous periumbilical fluid collection, as above. Abdomen X-Ray 09/24/18 00:00 CONCLUSION: Nonspecific intestinal gas pattern Chest X-Ray 09/26/18 06:00 CONCLUSION: Bilateral mostly basilar airspace disease similar to September 25. Physical Exam: GENERAL: awake and alert, not in respiratory distress. SKIN: Cool and dry. No generalized rash, no ecchymoses and no evidence of embolic lesions. HEAD: Atraumatic. Normocephalic. No temporal wasting, or tenderness. EYES: [place] conjunctiva. No petechia or hemorrhage. No scleral icterus. No injection or drainage. EARS, NOSE AND THROAT: Nose without bleeding or purulent nasal discharge. Orally intubated. NECK: Trachea midline. Supple and not tender, no meningeal signs CARDIOVASCULAR: Regular rate and rhythm. No murmurs, rubs or gallops heard RESPIRATORY: Clear to auscultation. Breath sounds equal bilaterally. No rales , wheezing or rhonchi ABDOMEN: Soft, obese, has a wound with packing, bloody drainage. has hernia. Bowel sounds present and normoactive. No guarding. No rebound. EXTREMITIES: No clubbing, cyanosis, or edema. NEURO: Awake and alert, non-focal PSYCHIATRIC: Calm and cooperative LINE: No evidence of infection Assessment and Plan - Plan Impression Abdominal wall cellulitis - has superficial fluid collection, ?infected - better - C/S negative (?due to prior Abx) Chronic fluid collection intraperitoneal close to his hernia mesh S/P multiple hernia repair Hx colon CA S/P R hemicolectomy, S/P chemo COPD Obesity Fevers,, better Respiratory failure, extubated Recommendation Continue IV Vanco Continue Zosyn Continue Abx this weekend Prob Doxy and Cipro when ready for D/C Follow new C/S Follow temps Monitor progress
--- NOTE | 2018-09-28 15:25 | P.PNIM ---
Subjective Interval history: Patient planes of some abdominal wall pain. He also has a cough, his shortness of breath has improved. No palpitations, no chest pain. Physical Exam Vital signs: Vital Signs 09/27/18 16:00 09/27/18 17:00 09/27/18 17:01 Temperature 97.8 F Pulse Rate 69 72 69 Respiratory Rate 27 H 28 H Blood Pressure 139/88 Pulse Oximetry 91 L 90 L 91 L 09/27/18 18:00 09/27/18 19:44 09/27/18 20:00 Temperature Pulse Rate 80 84 73 Respiratory Rate 27 H 25 H Blood Pressure Pulse Oximetry 93 L 09/27/18 20:02 09/27/18 21:11 09/27/18 22:00 Temperature 98.5 F Pulse Rate 77 72 Respiratory Rate 26 H 23 Blood Pressure 123/75 Pulse Oximetry 88 L 92 L 09/27/18 22:06 09/27/18 23:00 09/28/18 00:00 Temperature 98.6 F Pulse Rate 72 58 L 70 Respiratory Rate 26 H 23 20 Blood Pressure 127/61 134/98 H Pulse Oximetry 88 L 86 L 90 L 09/28/18 00:15 09/28/18 01:00 09/28/18 02:00 Temperature Pulse Rate 78 65 71 Respiratory Rate 22 25 H 33 H Blood Pressure 134/98 H Pulse Oximetry 93 L 87 L 87 L 09/28/18 02:20 09/28/18 03:00 09/28/18 03:14 Temperature Pulse Rate 65 77 69 Respiratory Rate 32 H 25 H 24 Blood Pressure 123/74 Pulse Oximetry 87 L 89 L 09/28/18 03:20 09/28/18 04:00 09/28/18 05:00 Temperature 98.7 F Pulse Rate 68 59 L Respiratory Rate 28 H 17 Blood Pressure 150/86 H 132/88 138/82 Pulse Oximetry 89 L 93 L 09/28/18 06:00 09/28/18 07:07 09/28/18 07:44 Temperature 98.7 F Pulse Rate 53 L 81 76 Respiratory Rate 13 Blood Pressure 137/81 Pulse Oximetry 93 L 92 L 09/28/18 08:00 09/28/18 08:06 09/28/18 08:26 Temperature 98.6 F Pulse Rate 68 71 69 Respiratory Rate 27 H 34 H 17 Blood Pressure 135/90 Pulse Oximetry 93 L 92 L 11/30/18 09:50 09/28/18 10:00 09/28/18 11:00 Temperature Pulse Rate 76 61 Respiratory Rate 39 H 23 Blood Pressure 138/69 Pulse Oximetry 90 L 92 L 87 L 09/28/18 12:00 Temperature 98.9 F Pulse Rate 59 L Respiratory Rate 25 H Blood Pressure Pulse Oximetry 90 L Intake & Output 09/27/18 09/28/18 09/28/18 18:59 06:59 18:59 Intake Total 1974 / 1974 1335 / 1335 50 / 50 Output Total 1500 / 1500 400 / 400 Balance 475 / 475 935 / 935 50 / 50 Weight 115.8 kg Intake: IV 615 / 615 615 / 615 50 / 50 Zosyn 3.375 GM Premix 50 ML @ 100 / 100 100 / 100 50 / 50 100 mls/hr IV.SIG Q6H [facility] Rx#: [id number] Vancomycin Inj 1,500 MG In NS 515 / 515 515 / 515 Inj 500 ML @ 250 mls/hr IV.SIG Q12H [facility] Rx#:[id number] Oral 360 / 360 720 / 720 Anesthesia Amount 1000 / 1000 Output: Urine 1500 / 1500 400 / 400 Other: Mode Setting Midline Upper Umbilicus Continuous # Voids 7 3 Date of Last Bowel Movement 09/26/18 09/28/18 09/28/18 # Bowel Movements 1 3 Narrative: General patient in no acute distress HEENT extraocular movements are intact, clear oropharyngeal mucosa, no JVD Cardiovascular S1-S2 audible Respiratory clear to auscultation bilaterally. Abdomen soft, nontender, mildly distended, bandage covering the patient's abdomen. Extremities no edema Neuro cranial nerves II through XII intact - Urinary Catheter Management Indwelling Urethral Catheter Cath placed during this visit: yes, but has since been removed by the nurse Reason for continuing: Hourly intake/output Insertion date: 09/25/18 Removal date: 09/26/18 Removal time: 15:20 Results - Labs CBC & Chem 7: 09/28/18 05:21 09/28/18 05:21 Laboratory Results - last 24 hr 09/27/18 09/27/18 09/28/18 17:41 21:25 02:22 WBC RBC Hgb Hct MCV MCH MCHC RDW Plt Count MPV Neut % (Auto) Lymph % (Auto) [place] % (Auto) Eos % (Auto) Baso % (Auto) Neut # (Auto) Lymph # (Auto) [place] # (Auto) Eos # (Auto) Baso # (Auto) WBC Differential Differential Comment Sodium Potassium Chloride Carbon Dioxide Anion Gap BUN Creatinine Estimated GFR POC Glucose 82 140 H 117 H Random Glucose Calcium Magnesium B-Natriuretic Peptide 09/28/18 09/28/18 09/28/18 05:21 05:21 05:21 WBC 6.5 RBC 4.43 L Hgb 13.0 Hct 38.1 L MCV 86.0 MCH 29.3 MCHC 34.1 RDW 14.2 Plt Count 211 MPV 7.9 Neut % (Auto) 69.5 Lymph % (Auto) 17.4 [place] % (Auto) 8.7 H Eos % (Auto) 3.6 Baso % (Auto) 0.8 Neut # (Auto) 4.5 Lymph # (Auto) 1.1 [place] # (Auto) 0.6 Eos # (Auto) 0.2 Baso # (Auto) 0.0 WBC Differential . Differential Comment Auto diff final Sodium 141 Potassium 3.7 Chloride 107 Carbon Dioxide 27.1 Anion Gap 7 BUN 22 H Creatinine 1.18 Estimated GFR 64 L POC Glucose Random Glucose 150 H Calcium 7.9 L Magnesium 1.9 B-Natriuretic Peptide 343 H 09/28/18 07:32 WBC RBC Hgb Hct MCV MCH MCHC RDW Plt Count MPV Neut % (Auto) Lymph % (Auto) [place] % (Auto) Eos % (Auto) Baso % (Auto) Neut # (Auto) Lymph # (Auto) [place] # (Auto) Eos # (Auto) Baso # (Auto) WBC Differential Differential Comment Sodium Potassium Chloride Carbon Dioxide Anion Gap BUN Creatinine Estimated GFR POC Glucose 137 H Random Glucose Calcium Magnesium B-Natriuretic Peptide Microbiology 09/26/18 11:03 Blood - Peripheral Aerobic Blood Culture - Preliminary No growth in 2 days 09/26/18 11:03 Blood - Peripheral Anaerobic Blood Culture - Preliminary No growth in 2 days 09/26/18 10:58 Blood - Peripheral Aerobic Blood Culture - Preliminary No growth in 2 days 09/26/18 10:58 Blood - Peripheral Anaerobic Blood Culture - Preliminary No growth in 2 days 09/25/18 12:53 Abscess - Abdominal Gram Stain - Final 09/25/18 12:53 Abscess - Abdominal Wound Culture - Final No growth in 72 hours (aerobically and anaerobically ) 09/25/18 12:53 Abscess - Abdominal Gram Stain - Final 09/25/18 12:53 Abscess - Abdominal Wound Culture - Final No growth in 72 hours (aerobically and anaerobically ) - Procedures None Assessment and Plan - Plan This patient is a 58-year-old male with a history of TIA, colon cancer, COPD, diabetes mellitus, history of abdominal repair approximately [address] Lau who presented to the emergency department and was found to be in atrial for ablation with rapid ventricular rate. He also had abdominal wall cellulitis. Patient was intubated for surgical procedure and initially it was difficult to extubate him. He is now s/p extubation yesterday. Now requiring supplemental oxygen. 1. Atrial for ablation with rapid ventricular rate/atrial flutter 2. Acute hypoxic respiratory failure Heart rate currently under control with Cardizem and Coreg. Patient is currently on Lovenox for anticoagulation. As per cardiology if the patient does not have any bleeding while on Lovenox he will be transitioned to Noac or Coumadin. We will follow-up with surgery regarding plans for any further procedures. Cardiology following the patient. Chest x-ray showed pulmonary vascular congestion, patient was given Lasix IV yesterday and diuresed well. He is now off of supplemental oxygen. Patient will be transferred out of the intensive care unit today. 2. Abdominal wall cellulitis Patient is currently on IV antibiotics which will be continued. Surgery following the patient, patient is status post incision and drainage of the subcutaneous abdominal abscess. Repeat incision and drainage was planned initially however the patient went back into atrial flutter and the procedure was canceled. As per surgery's note we will continue with IV antibiotics for now over the weekend. 3. Diabetes mellitus Blood sugars currently under control ranging between 100 and 150. 4. Tobacco smoking 5. COPD The patient was counseled on tobacco smoking. DuoNeb treatments will be given as needed. Continue Symbicort. DVT prophylaxis, patient is currently on Lovenox.
[2018-09-28] MEDS ORDERED: Magnesium Sulfate Inj 2 GM in Sodium Chlor 0.9% Inj 96 ML IV.SIG ONE (16:00)
--- NOTE | 2018-09-28 17:16 | P.PNCA ---
Subjective Interval history: alert in nad Medications and Allergies Active Medications: Active Medications Albuterol (Duoneb Neb (Prn)) 1 ampul NEB Q2HR NEB PRN PRN Reason: SHORTNESS OF BREATH Last Admin: 09/28/18 08:28 Dose: 1 ampul Aspirin (Aspirin) 325 mg PO DAILY [facility] Last Admin: 09/28/18 08:00 Dose: 325 mg Atorvastatin Calcium (Lipitor) 40 mg PO HS [facility] Budesonide/Formoterol Fumarate (Symbicort 80/4.5 Mcg Inh) 2 puff INH BID [facility] Last Admin: 09/28/18 11:53 Dose: 2 puff Carvedilol (Coreg) 12.5 mg PO BID [facility] Last Admin: 09/28/18 08:00 Dose: 12.5 mg Chlorhexidine Gluconate (Peridex 0.12% Oral Kit) 15 ml OROPHARYNG BID@0800, 1999 [facility] Last Admin: 09/28/18 08:00 Dose: 15 ml Dextrose (D50w Vial) 50 ml IV.PUSH UNSCH PRN PRN Reason: PER HYPOGLYCEMIA PROTOCOL Diltiazem HCl (Cardizem) 60 mg PO QID [facility] Last Admin: 09/28/18 12:40 Dose: 60 mg Enoxaparin Sodium (Lovenox Inj) 100 mg SQ Q12H [facility] Last Admin: 09/23/18 22:32 Dose: 100 mg Furosemide (Lasix) 20 mg PO DAILY [facility] Glucagon (Glucagon Inj) 1 mg OTHER PRN PRN PRN Reason: for Hypoglycemia Protocol Hydromorphone HCl (Dilaudid Pf Inj) 1 mg IV.PUSH Q4H PRN PRN Reason: BREAKTHROUGH PAIN Last Admin: 09/28/18 16:50 Dose: 1 mg Piperacillin/Tazobactam/Dextrose (Zosyn 3.375 Gm Premix) 50 mls @ 100 mls/hr IV.SIG Q6H [facility] Last Infusion: 09/28/18 11:53 Dose: Infused Vancomycin HCl 1,500 mg/ (Sodium Chloride) 515 mls @ 250 mls/hr IV.SIG Q12H [facility] Last Admin: 09/28/18 13:40 Dose: 250 mls/hr Dexmedetomidine HCl 200 mcg/ (Sodium Chloride) 50 mls @ 6.05 mls/hr IV.CONT TITRATE PRN; Protocol PRN Reason: Per Protocol Last Titration: 09/26/18 19:55 Dose: 0 mcg/kg/hr, 0 mls/hr Propofol (Diprivan 1000 Mg/100 Ml Inj) 1,000 mg in 100 mls @ 36.33 mls/hr IV.CONT TITRATE PRN; Protocol PRN Reason: Per Protocol Last Titration: 09/26/18 11:57 Dose: 0 mcg/kg/min, 0 mls/hr Norepinephrine Bitartrate (Levophed-Dextrose 4 Mg/250 Ml Drip) 4 mg in 250 mls @ 7.5 mls/hr IV.SIG TITRATE PRN; Protocol PRN Reason: Per Protocol Last Titration: 09/26/18 09:20 Dose: 0 mcg/min, 0 mls/hr Magnesium Sulfate 2 gm/ Sodium (Chloride) 100 mls @ 50 mls/hr IV.SIG ONCE ONE Stop: 09/28/18 17:59 Last Admin: 09/28/18 16:50 Dose: 50 mls/hr Insulin Aspart (Novolog Insulin Correctional Sugar Inj) 0 unit SQ ACHS AND 3AM [facility]; Protocol Last Admin: 09/28/18 16:53 Dose: Not Given Ipratropium [place] (Atrovent Neb) 0.5 mg NEB Q4HR NEB PRN PRN Reason: sob/wheezing Last Admin: 09/24/18 21:57 Dose: 0.5 mg Miscellaneous Medication () 1 each OROPHARYNG 0000,0400,1200,1600 [facility] Last Admin: 09/28/18 16:53 Dose: 1 each Naloxone HCl (Narcan Inj) 0.4 mg IV.PUSH UNSCH PRN PRN Reason: SEE LABEL COMMENTS Nicotine (Habitrol 21 Mg Patch.24 Hr) 1 patch T-DERMAL DAILY [facility] Last Admin: 09/28/18 08:01 Dose: Not Given Oxycodone/Acetaminophen (Percocet 10/325 Mg) 1 tab PO Q4H PRN PRN Reason: pain 6-10 Last Admin: 09/28/18 13:41 Dose: 1 tab Oxycodone/Acetaminophen (Percocet 5/325 Mg) 1 tab PO Q4H PRN PRN Reason: pain 1-5 Last Admin: 09/28/18 08:00 Dose: 1 tab Patch Removal (Remove Old Patch) 1 each T-DERMAL DAILY [facility] Last Admin: 09/28/18 08:02 Dose: Not Given Pharmacy Profile Note (Vancomycin Consult Pharmacy) 1 each OTHER UNSCH PRN PRN Reason: Pharmacy to dose Ramipril (Altace) 5 mg PO DAILY [facility] Last Admin: 09/28/18 08:01 Dose: 5 mg Senna/Docusate Sodium ([place]aven-Colace) 1 tab PO BID PRN PRN Reason: CONSTIPATION Sodium Chloride (Ns Flush) 2 ml IV.FLUSH PRN PRN PRN Reason: FLUSH AFTER USING IV ACCESS Sodium Chloride (Ns Flush) 2 ml IV.FLUSH BID [facility] Last Admin: 09/28/18 08:02 Dose: 2 ml Spironolactone (Aldactone) 50 mg PO BID@0900,1800 [facility] Last Admin: 09/28/18 08:00 Dose: 50 mg Terbutaline Sulfate (Brethine Inj) 1 mg SQ UNSCH PRN PRN Reason: For Extravasation Allergies Allergy/AdvReac Type Severity Reaction Status Date / Time No Known Allergies Allergy Verified 09/19/18 17:25 Home Medications Medication Instructions Recorded Confirmed Type aspirin 325 mg PO DAILY 09/19/18 09/19/18 History Physical Exam Vital signs: Vital Signs 09/27/18 18:00 09/27/18 19:44 09/27/18 20:00 Temperature Pulse Rate 80 84 73 Respiratory Rate 27 H 25 H Blood Pressure Pulse Oximetry 93 L 09/27/18 20:02 09/27/18 21:11 09/27/18 22:00 Temperature 98.5 F Pulse Rate 77 72 Respiratory Rate 26 H 23 Blood Pressure 123/75 Pulse Oximetry 88 L 92 L 09/27/18 22:06 09/27/18 23:00 09/28/18 00:00 Temperature 98.6 F Pulse Rate 72 58 L 70 Respiratory Rate 26 H 23 20 Blood Pressure 127/61 134/98 H Pulse Oximetry 88 L 86 L 90 L 09/28/18 00:15 09/28/18 01:00 09/28/18 02:00 Temperature Pulse Rate 78 65 71 Respiratory Rate 22 25 H 33 H Blood Pressure 134/98 H Pulse Oximetry 93 L 87 L 87 L 09/28/18 02:20 09/28/18 03:00 09/28/18 03:14 Temperature Pulse Rate 65 77 69 Respiratory Rate 32 H 25 H 24 Blood Pressure 123/74 Pulse Oximetry 87 L 89 L 09/28/18 03:20 09/28/18 04:00 09/28/18 05:00 Temperature 98.7 F Pulse Rate 68 59 L Respiratory Rate 28 H 17 Blood Pressure 150/86 H 132/88 138/82 Pulse Oximetry 89 L 93 L 09/28/18 06:00 09/28/18 07:07 09/28/18 07:44 Temperature 98.7 F Pulse Rate 53 L 81 76 Respiratory Rate 13 Blood Pressure 137/81 Pulse Oximetry 93 L 92 L 09/28/18 08:00 09/28/18 08:06 09/28/18 08:26 Temperature 98.6 F Pulse Rate 68 71 69 Respiratory Rate 27 H 34 H 17 Blood Pressure 135/90 Pulse Oximetry 93 L 92 L 09/28/18 09:50 09/28/18 10:00 09/28/18 11:00 Temperature Pulse Rate 76 61 Respiratory Rate 39 H 23 Blood Pressure 138/69 Pulse Oximetry 90 L 92 L 87 L 09/28/18 12:00 09/28/18 13:01 09/28/18 14:00 Temperature 98.9 F Pulse Rate 59 L 77 74 Respiratory Rate 25 H 35 H Blood Pressure Pulse Oximetry 90 L 86 L 91 L 09/28/18 15:00 09/28/18 16:00 Temperature 98.9 F Pulse Rate 66 70 Respiratory Rate 18 Blood Pressure Pulse Oximetry 90 L Intake & Output 09/27/18 09/28/18 09/28/18 18:59 06:59 18:59 Intake Total 1974 / 1974 1335 / 1335 50 / 50 Output Total 1500 / 1500 400 / 400 Balance 475 / 475 935 / 935 50 / 50 Weight 115.8 kg Intake: IV 615 / 615 615 / 615 50 / 50 Zosyn 3.375 GM Premix 50 ML @ 100 / 100 100 / 100 50 / 50 100 mls/hr IV.SIG Q6H [facility] Rx#: [id number] Vancomycin Inj 1,500 MG In NS 515 / 515 515 / 515 Inj 500 ML @ 250 mls/hr IV.SIG Q12H [facility] Rx#:[id number] Oral 360 / 360 720 / 720 Anesthesia Amount 1000 / 1000 Output: Urine 1500 / 1500 400 / 400 Other: Mode Setting Midline Upper Umbilicus Continuous # Voids 7 3 Date of Last Bowel Movement 09/26/18 09/28/18 09/28/18 # Bowel Movements 1 3 - Constitutional no acute distress - Routine HEENT Exam Head: Present: normocephalic - Routine Neck Exam Present: supple - Routine Respiratory Exam Present: CTA bilaterally - Routine Cardiovascular Exam Present: S1, S2 - Routine Abdominal Exam Present: soft - Routine Extremities Exam Comments: no noelle - Urinary Catheter Management Indwelling Urethral Catheter Cath placed during this visit: yes, but has since been removed by the nurse Reason for continuing: Hourly intake/output Insertion date: 09/25/18 Removal date: 09/26/18 Removal time: 15:20 Results 09/28/18 05:21 09/28/18 05:21 Cardiac Enzymes 09/27/18 09/28/18 Range/Units 02:52 05:21 B-Natriuretic Peptide 284 H 343 H (0-100) pg/mL Coagulation 09/27/18 09/28/18 Range/Units 02:52 05:21 B-Natriuretic Peptide 284 H 343 H (0-100) pg/mL CBC 09/28/18 Range/Units 05:21 WBC 6.5 (4.0-11.0) th/mm3 RBC 4.43 L (4.50-5.90) mil/mm3 Hgb 13.0 (13.0-17.0) gm/dL Hct 38.1 L (39.0-51.0) % Plt Count 211 (150-450) th/mm3 Neut # (Auto) 4.5 (1.8-7.7) th/mm3 Lymph # (Auto) 1.1 (1.0-4.8) th/mm3 [place] # (Auto) 0.6 (0.0-0.9) th/mm3 Eos # (Auto) 0.2 (0.0-0.4) th/mm3 Baso # (Auto) 0.0 (0.0-0.2) th/mm3 Comprehensive Metabolic Panel 09/27/18 09/28/18 Range/Units 02:52 05:21 Sodium 141 141 (136-145) meq/L Potassium 3.7 3.7 (3.5-5.1) meq/L Chloride 107 107 (98-107) meq/L Carbon Dioxide 26.2 27.1 (21.0-32.0) meq/L BUN 20 H 22 H (7-18) mg/dL Creatinine 1.25 1.18 (0.60-1.30) mg/dL Calcium 8.2 L 7.9 L (8.5-10.1) mg/dL Intake and Output 09/28/18 09/28/18 09/28/18 06:59 14:59 22:59 Intake Total 1335 / 1335 50 / 50 Output Total 400 / 400 Balance 935 / 935 50 / 50 Intake: IV 615 / 615 50 / 50 Zosyn 3.375 GM Premix 50 ML @ 100 / 100 50 / 50 100 mls/hr IV.SIG Q6H [facility] Rx#: [id number] Vancomycin Inj 1,500 MG In NS 515 / 515 Inj 500 ML @ 250 mls/hr IV.SIG Q12H [facility] Rx#:[id number] Oral 720 / 720 Output: Urine 400 / 400 Other: # Voids 3 Date of Last Bowel Movement 09/28/18 09/28/18 09/28/18 # Bowel Movements 3 Weight 115.8 kg Assessment and Plan - Assessment (1) Cardiomyopathy Code(s): I42.9 - Cardiomyopathy, unspecified Status: Acute (2) Tobacco abuse Code(s): Z72.0 - Tobacco use Status: Acute (3) CAD (coronary artery disease) Code(s): I25.10 - Atherosclerotic heart disease of [place] coronary artery without angina pectoris Status: Acute (4) Cellulitis of abdominal wall Code(s): L03.311 - Cellulitis of abdominal wall Status: Acute (5) Atrial fibrillation with RVR Code(s): I48.91 - Unspecified atrial fibrillation Status: Acute (6) COPD (chronic obstructive pulmonary disease) Code(s): J44.9 - Chronic obstructive pulmonary disease, unspecified Status: Acute - Plan 1.) CAD - assymptomatic, check fasting lipids, lfts, on lovenox, start aspirin 81 mg qd if/when surgery is not indicated 2.) Cardiomyopathy - improving, ef=40%, start coreg. Increase altace to 5 mg qd and aldactone to 50 mg bid, f/u bmp/bnp/mag 3.) Afib rvr - rate controlled on cardizem, h/o gid due to pud requiring transfusion in 2016, uncertain f/u due to lack of insurance; on lovenox, chadsvasc score =4, will consider noac or coumadin if no bleeding on lovenox and patient has f/u with pcp 4.) Patient strongly advised to stop smoking 5.) Situs inversus
[2018-09-28 18:36] LABS: Chol/HDL Ratio 4.65 Ratio; HDL Cholesterol 30.1 mg/dL (40.0-60.0)
[2018-09-28] MEDS: Enoxaparin Inj 100 MG/ML Syringe SQ SCH (23:13)
[2018-09-29] MEDS: Vancomycin Inj 1,500 MG in Sodium Chlor 0.9% Inj 500 ML IV.SIG SCH ×2 (01:13→12:00)
[2018-09-29] MEDS: Oral Hygiene Kit OROPHARYNG SCH ×4 (01:13→15:39)
[2018-09-29] MEDS: HYDROmorphone PF Inj 1 MG/ML Ampul IV.PUSH PRN ×6 (01:17→22:22)
[2018-09-29] MEDS: oxyCODONE/Acetaminophen 10/325 Tablet PO PRN ×4 (03:21→16:12)
[2018-09-29] MEDS: Insulin NovoLOG Aspart Correctional Sugar Inj SQ SCH ×5 (03:22→20:21)
[2018-09-29 05:08] LABS: Calcium 8.6 mg/dL (8.5-10.1); Carbon Dioxide 23.9 meq/L (21.0-32.0); Magnesium 2.1 mg/dL (1.5-2.5); Potassium 3.9 meq/L (3.5-5.1)
[2018-09-29] MEDS: Piperacil/Tazo 3.375 GM Premix 50 ML IV.SIG SCH ×4 (05:17→23:24)
[2018-09-29] MEDS: Carvedilol 12.5 MG Tablet PO SCH ×2 (08:00→20:19)
[2018-09-29] MEDS: Furosemide 20 MG Tablet PO SCH (08:00)
[2018-09-29] MEDS: dilTIAZem 60 MG Tablet PO SCH ×4 (08:00→20:19)
[2018-09-29] MEDS: Aspirin 325 MG Tablet PO SCH (08:00)
[2018-09-29] MEDS: Spironolactone 50 MG Tablet PO SCH ×2 (08:00→18:07)
[2018-09-29] MEDS: Ramipril 5 MG Capsule PO SCH (08:01)
[2018-09-29] MEDS: Chlorhexidine 0.12% Oral Kit 15 ML UDC OROPHARYNG SCH ×2 (08:44→21:20)
[2018-09-29] MEDS: Enoxaparin Inj 100 MG/ML Syringe SQ SCH ×2 (10:30→23:24)
--- NOTE | 2018-09-29 10:39 | P.PNCA ---
Subjective Interval history: alert in nad Medications and Allergies Active Medications: Active Medications Albuterol (Duoneb Neb (Prn)) 1 ampul NEB Q2HR NEB PRN PRN Reason: SHORTNESS OF BREATH Last Admin: 09/29/18 01:29 Dose: 1 ampul Aspirin (Aspirin) 325 mg PO DAILY [facility] Last Admin: 09/29/18 08:00 Dose: 325 mg Atorvastatin Calcium (Lipitor) 40 mg PO HS [facility] Last Admin: 09/28/18 21:01 Dose: 40 mg Budesonide/Formoterol Fumarate (Symbicort 80/4.5 Mcg Inh) 2 puff INH BID [facility] Last Admin: 09/28/18 21:33 Dose: 2 puff Carvedilol (Coreg) 12.5 mg PO BID [facility] Last Admin: 09/29/18 08:00 Dose: 12.5 mg Chlorhexidine Gluconate (Peridex 0.12% Oral Kit) 15 ml OROPHARYNG BID@0800, 2000 [facility] Last Admin: 09/29/18 08:44 Dose: Not Given Dextrose (D50w Vial) 50 ml IV.PUSH UNSCH PRN PRN Reason: PER HYPOGLYCEMIA PROTOCOL Diltiazem HCl (Cardizem) 60 mg PO QID [facility] Last Admin: 09/29/18 08:00 Dose: 60 mg Enoxaparin Sodium (Lovenox Inj) 100 mg SQ Q12H [facility] Last Admin: 09/29/18 10:30 Dose: 100 mg Furosemide (Lasix) 20 mg PO DAILY [facility] Last Admin: 09/29/18 08:00 Dose: 20 mg Glucagon (Glucagon Inj) 1 mg OTHER PRN PRN PRN Reason: for Hypoglycemia Protocol Hydromorphone HCl (Dilaudid Pf Inj) 1 mg IV.PUSH Q4H PRN PRN Reason: BREAKTHROUGH PAIN Last Admin: 09/29/18 10:30 Dose: 1 mg Piperacillin/Tazobactam/Dextrose (Zosyn 3.375 Gm Premix) 50 mls @ 100 mls/hr IV.SIG Q6H [facility] Last Infusion: 09/29/18 06:15 Dose: Infused Vancomycin HCl 1,500 mg/ (Sodium Chloride) 515 mls @ 250 mls/hr IV.SIG Q12H [facility] Last Infusion: 09/29/18 03:30 Dose: Infused Dexmedetomidine HCl 200 mcg/ (Sodium Chloride) 50 mls @ 6.05 mls/hr IV.CONT TITRATE PRN; Protocol PRN Reason: Per Protocol Last Titration: 09/26/18 19:55 Dose: 0 mcg/kg/hr, 0 mls/hr Propofol (Diprivan 1000 Mg/100 Ml Inj) 1,000 mg in 100 mls @ 36.33 mls/hr IV.CONT TITRATE PRN; Protocol PRN Reason: Per Protocol Last Titration: 09/26/18 11:57 Dose: 0 mcg/kg/min, 0 mls/hr Norepinephrine Bitartrate (Levophed-Dextrose 4 Mg/250 Ml Drip) 4 mg in 250 mls @ 7.5 mls/hr IV.SIG TITRATE PRN; Protocol PRN Reason: Per Protocol Last Titration: 09/26/18 09:20 Dose: 0 mcg/min, 0 mls/hr Insulin Aspart (Novolog Insulin Correctional Sugar Inj) 0 unit SQ ACHS AND 3AM [facility]; Protocol Last Admin: 09/29/18 08:44 Dose: Not Given Ipratropium [place] (Atrovent Neb) 0.5 mg NEB Q4HR NEB PRN PRN Reason: sob/wheezing Last Admin: 09/24/18 21:57 Dose: 0.5 mg Miscellaneous Medication () 1 each OROPHARYNG 0000,0400,1200,1600 [facility] Last Admin: 09/29/18 05:17 Dose: Not Given Naloxone HCl (Narcan Inj) 0.4 mg IV.PUSH UNSCH PRN PRN Reason: SEE LABEL COMMENTS Nicotine (Habitrol 21 Mg Patch.24 Hr) 1 patch T-DERMAL DAILY [facility] Last Admin: 09/29/18 08:46 Dose: Not Given Oxycodone/Acetaminophen (Percocet 10/325 Mg) 1 tab PO Q4H PRN PRN Reason: pain 6-10 Last Admin: 09/29/18 08:02 Dose: 1 tab Oxycodone/Acetaminophen (Percocet 5/325 Mg) 1 tab PO Q4H PRN PRN Reason: pain 1-5 Last Admin: 09/28/18 08:00 Dose: 1 tab Patch Removal (Remove Old Patch) 1 each T-DERMAL DAILY [facility] Last Admin: 09/29/18 08:46 Dose: Not Given Pharmacy Profile Note (Vancomycin Consult Pharmacy) 1 each OTHER UNSCH PRN PRN Reason: Pharmacy to dose Ramipril (Altace) 5 mg PO DAILY [facility] Last Admin: 09/29/18 08:01 Dose: 5 mg Senna/Docusate Sodium (Raven-Colace) 1 tab PO BID PRN PRN Reason: CONSTIPATION Sodium Chloride (Ns Flush) 2 ml IV.FLUSH PRN PRN PRN Reason: FLUSH AFTER USING IV ACCESS Sodium Chloride (Ns Flush) 2 ml IV.FLUSH BID [facility] Last Admin: 09/29/18 08:02 Dose: 2 ml Spironolactone (Aldactone) 50 mg PO BID@0900,1800 [facility] Last Admin: 09/29/18 08:00 Dose: 50 mg Terbutaline Sulfate (Brethine Inj) 1 mg SQ UNSCH PRN PRN Reason: For Extravasation Allergies Allergy/AdvReac Type Severity Reaction Status Date / Time No Known Allergies Allergy Verified 09/19/18 17:25 Home Medications Medication Instructions Recorded Confirmed Type aspirin 325 mg PO DAILY 09/19/18 09/19/18 History Physical Exam Vital signs: Vital Signs 09/28/18 11:00 09/28/18 12:00 09/28/18 13:01 Temperature 98.9 F Pulse Rate 61 59 L 77 Respiratory Rate 23 25 H Blood Pressure Pulse Oximetry 87 L 90 L 86 L 09/28/18 14:00 09/28/18 15:00 09/28/18 16:00 Temperature 98.9 F Pulse Rate 74 66 66 Respiratory Rate 35 H 18 Blood Pressure Pulse Oximetry 91 L 90 L 09/28/18 19:52 09/28/18 19:54 09/28/18 19:57 Temperature 98.3 F Pulse Rate 73 76 Respiratory Rate 15 28 H Blood Pressure 180/102 H 167/96 H Pulse Oximetry 09/28/18 20:00 09/28/18 21:04 09/28/18 22:00 Temperature Pulse Rate 73 70 70 Respiratory Rate 15 22 22 Blood Pressure Pulse Oximetry 09/29/18 00:00 09/29/18 01:30 09/29/18 04:00 Temperature 98.2 F 97.8 F Pulse Rate 65 66 78 Respiratory Rate 19 16 21 Blood Pressure 145/88 H 132/92 H Pulse Oximetry 91 L 94 L Intake & Output 09/28/18 09/29/18 09/29/18 18:59 06:59 18:59 Intake Total 2014 1145 / 1145 Output Total 125 / 125 1500 / 1500 Balance 1890 / 1890 -355 / -355 Intake: IV 665 / 665 665 / 665 Magnesium Sulfate Inj 2 GM In 100 / 100 NS Inj 96 ML @ 50 mls/hr IV.SIG ONCE ONE Rx#:[id number] Zosyn 3.375 GM Premix 50 ML @ 50 / 50 150 / 150 100 mls/hr IV.SIG Q6H [facility] Rx#: [id number] Vancomycin Inj 1,500 MG In NS 515 / 515 515 / 515 Inj 500 ML @ 250 mls/hr IV.SIG Q12H [facility] Rx#:[id number] Oral 1350 / 1350 480 / 480 Output: Urine 125 / 125 1500 / 1500 Other: # Voids 1 6 Date of Last Bowel Movement 09/28/18 09/28/18 # Bowel Movements 2 0 - Constitutional no acute distress - Routine HEENT Exam Head: Present: normocephalic - Routine Neck Exam Present: supple - Routine Respiratory Exam Present: CTA bilaterally - Routine Cardiovascular Exam Present: S1, S2 - Routine Abdominal Exam Present: soft - Routine Extremities Exam Comments: no noelle - Urinary Catheter Management Indwelling Urethral Catheter Cath placed during this visit: yes, but has since been removed by the nurse Reason for continuing: Hourly intake/output Insertion date: 09/25/18 Removal date: 09/26/18 Removal time: 15:20 Results 09/28/18 05:21 09/29/18 04:17 Cardiac Enzymes 09/28/18 09/29/18 Range/Units 05:21 04:17 B-Natriuretic Peptide 343 H 328 H (0-100) pg/mL Coagulation 09/28/18 09/29/18 Range/Units 05:21 04:17 B-Natriuretic Peptide 343 H 328 H (0-100) pg/mL Lipids 09/28/18 Range/Units 05:21 Triglycerides 101 (42-150) mg/dL Cholesterol 140 (120-200) mg/dL HDL Cholesterol 30.1 L (40.0-60.0) mg/dL Cholesterol/HDL Ratio 4.65 Ratio CBC 09/28/18 Range/Units 05:21 WBC 6.5 (4.0-11.0) th/mm3 RBC 4.43 L (4.50-5.90) mil/mm3 Hgb 13.0 (13.0-17.0) gm/dL Hct 38.1 L (39.0-51.0) % Plt Count 211 (150-450) th/mm3 Neut # (Auto) 4.5 (1.8-7.7) th/mm3 Lymph # (Auto) 1.1 (1.0-4.8) th/mm3 [place] # (Auto) 0.6 (0.0-0.9) th/mm3 Eos # (Auto) 0.2 (0.0-0.4) th/mm3 Baso # (Auto) 0.0 (0.0-0.2) th/mm3 Comprehensive Metabolic Panel 09/28/18 09/29/18 Range/Units 05:21 04:17 Sodium 141 141 (136-145) meq/L Potassium 3.7 3.9 (3.5-5.1) meq/L Chloride 107 108 H (98-107) meq/L Carbon Dioxide 27.1 23.9 (21.0-32.0) meq/L BUN 22 H 19 H (7-18) mg/dL Creatinine 1.18 1.14 (0.60-1.30) mg/dL Calcium 7.9 L 8.6 (8.5-10.1) mg/dL Intake and Output 09/28/18 09/29/18 09/29/18 22:59 06:59 14:59 Intake Total 2014 1095 / 1095 Output Total 125 / 125 1500 / 1500 Balance 1890 / 1890 -405 / -405 Intake: IV 665 / 665 615 / 615 Magnesium Sulfate Inj 2 GM In 100 / 100 NS Inj 96 ML @ 50 mls/hr IV.SIG ONCE ONE Rx#:[id number] Zosyn 3.375 GM Premix 50 ML @ 50 / 50 100 / 100 100 mls/hr IV.SIG Q6H [facility] Rx#: [id number] Vancomycin Inj 1,500 MG In NS 515 / 515 515 / 515 Inj 500 ML @ 250 mls/hr IV.SIG Q12H [facility] Rx#:[id number] Oral 1350 / 1350 480 / 480 Output: Urine 125 / 125 1500 / 1500 Other: # Voids 1 6 Date of Last Bowel Movement 09/28/18 09/28/18 # Bowel Movements 2 0 Assessment and Plan - Assessment (1) Cardiomyopathy Code(s): I42.9 - Cardiomyopathy, unspecified Status: Acute (2) Tobacco abuse Code(s): Z72.0 - Tobacco use Status: Acute (3) CAD (coronary artery disease) Code(s): I25.10 - Atherosclerotic heart disease of [place] coronary artery without angina pectoris Status: Acute (4) Cellulitis of abdominal wall Code(s): L03.311 - Cellulitis of abdominal wall Status: Acute (5) Atrial fibrillation with RVR Code(s): I48.91 - Unspecified atrial fibrillation Status: Acute (6) COPD (chronic obstructive pulmonary disease) Code(s): J44.9 - Chronic obstructive pulmonary disease, unspecified Status: Acute - Plan 1.) CAD - assymptomatic, check fasting lipids, lfts, on lovenox, start aspirin 81 mg qd if/when surgery is not indicated 2.) Cardiomyopathy - improving, ef=40%, start coreg. Increase altace to 5 mg qd and aldactone to 50 mg bid, f/u bmp/bnp/mag 3.) Afib rvr - rate controlled on cardizem, h/o gid due to pud requiring transfusion in 2016, uncertain f/u due to lack of insurance; on lovenox, chadsvasc score =4, will consider noac or coumadin if no bleeding on lovenox and patient has f/u with pcp 4.) Patient strongly advised to stop smoking 5.) Situs inversus
--- NOTE | 2018-09-29 18:23 | P.PNIM ---
Subjective Interval history: Patient in no acute distress. No chest pain, no palpitations. Physical Exam Vital signs: Vital Signs 09/28/18 19:52 09/28/18 19:54 09/28/18 19:57 Temperature 98.3 F Pulse Rate 73 76 Respiratory Rate 15 28 H Blood Pressure 180/102 H 167/96 H Pulse Oximetry 09/28/18 20:00 09/28/18 21:04 09/28/18 22:00 Temperature Pulse Rate 73 70 70 Respiratory Rate 15 22 22 Blood Pressure Pulse Oximetry 09/28/18 23:00 09/29/18 00:00 09/29/18 01:00 Temperature 98.2 F Pulse Rate 71 72 68 Respiratory Rate 32 H 39 H 28 H Blood Pressure 145/88 H Pulse Oximetry 91 L 09/29/18 01:21 09/29/18 01:30 09/29/18 03:52 Temperature Pulse Rate 70 66 86 Respiratory Rate 25 H 16 Blood Pressure 145/88 H Pulse Oximetry 09/29/18 04:00 09/29/18 05:00 09/29/18 05:01 Temperature 97.8 F Pulse Rate 68 79 80 Respiratory Rate 24 32 H 48 H Blood Pressure 132/92 H Pulse Oximetry 94 L 09/29/18 05:28 09/29/18 06:00 09/29/18 07:11 Temperature Pulse Rate 79 68 Respiratory Rate 35 H 22 Blood Pressure 132/92 H Pulse Oximetry 09/29/18 08:00 09/29/18 08:13 09/29/18 09:03 Temperature 97.9 F Pulse Rate 70 79 71 Respiratory Rate 32 H 28 H Blood Pressure Pulse Oximetry 09/29/18 09:09 09/29/18 10:00 09/29/18 11:17 Temperature Pulse Rate 73 Respiratory Rate 31 H Blood Pressure 136/90 Pulse Oximetry 93 L 100 09/29/18 11:24 09/29/18 13:14 09/29/18 14:00 Temperature Pulse Rate 75 66 Respiratory Rate 44 H 19 Blood Pressure 118/84 Pulse Oximetry 94 L 09/29/18 16:00 Temperature Pulse Rate 73 Respiratory Rate Blood Pressure Pulse Oximetry Intake & Output 09/28/18 09/29/18 09/29/18 18:59 06:59 18:59 Intake Total 2014 1145 / 1145 565 / 565 Output Total 125 / 125 1500 / 1500 Balance 1890 / 1890 -355 / -355 565 / 565 Intake: IV 665 / 665 665 / 665 565 / 565 Magnesium Sulfate Inj 2 GM In 100 / 100 NS Inj 96 ML @ 50 mls/hr IV.SIG ONCE ONE Rx#:[id number] Zosyn 3.375 GM Premix 50 ML @ 50 / 50 150 / 150 50 / 50 100 mls/hr IV.SIG Q6H [facility] Rx#: [id number] Vancomycin Inj 1,500 MG In NS 515 / 515 515 / 515 515 / 515 Inj 500 ML @ 250 mls/hr IV.SIG Q12H [facility] Rx#:[id number] Oral 1350 / 1350 480 / 480 Output: Urine 125 / 125 1500 / 1500 Other: # Voids 1 6 Date of Last Bowel Movement 09/28/18 09/28/18 09/28/18 # Bowel Movements 2 0 Narrative: General patient in no acute distress HEENT extraocular movements are intact, clear oropharyngeal mucosa, no JVD Cardiovascular S1-S2 audible, no chest pain. Respiratory clear to auscultation bilaterally. Abdomen soft, nontender, mildly distended, bandage covering the patient's abdomen. Extremities no edema Neuro cranial nerves II through XII intact - Urinary Catheter Management Indwelling Urethral Catheter Cath placed during this visit: yes, but has since been removed by the nurse Reason for continuing: Hourly intake/output Insertion date: 09/25/18 Removal date: 09/26/18 Removal time: 15:20 Results - Labs CBC & Chem 7: 09/28/18 05:21 09/29/18 04:17 Laboratory Results - last 24 hr 09/28/18 09/28/18 09/29/18 05:21 20:36 03:11 Sodium Potassium Chloride Carbon Dioxide Anion Gap BUN Creatinine Estimated GFR POC Glucose 167 H 136 H Random Glucose Calcium Magnesium B-Natriuretic Peptide Triglycerides 101 Cholesterol 140 LDL Cholesterol, Calc 90 HDL Cholesterol 30.1 L Cholesterol/HDL Ratio 4.65 09/29/18 09/29/18 09/29/18 04:17 04:17 08:41 Sodium 141 Potassium 3.9 Chloride 108 H Carbon Dioxide 23.9 Anion Gap 9 BUN 19 H Creatinine 1.14 Estimated GFR 66 L POC Glucose 100 Random Glucose 114 H Calcium 8.6 Magnesium 2.1 B-Natriuretic Peptide 328 H Triglycerides Cholesterol LDL Cholesterol, Calc HDL Cholesterol Cholesterol/HDL Ratio 09/29/18 09/29/18 11:30 18:09 Sodium Potassium Chloride Carbon Dioxide Anion Gap BUN Creatinine Estimated GFR POC Glucose 160 H 103 Random Glucose Calcium Magnesium B-Natriuretic Peptide Triglycerides Cholesterol LDL Cholesterol, Calc HDL Cholesterol Cholesterol/HDL Ratio Microbiology 09/26/18 11:03 Blood - Peripheral Aerobic Blood Culture - Preliminary No growth in 3 days 09/26/18 11:03 Blood - Peripheral Anaerobic Blood Culture - Preliminary No growth in 3 days 09/26/18 10:58 Blood - Peripheral Aerobic Blood Culture - Preliminary No growth in 3 days 09/26/18 10:58 Blood - Peripheral Anaerobic Blood Culture - Preliminary No growth in 3 days - Procedures None Assessment and Plan - Plan This patient is a 58-year-old male with a history of TIA, colon cancer, COPD, diabetes mellitus, history of abdominal repair approximately [address] Lau who presented to the emergency department and was found to be in atrial for ablation with rapid ventricular rate. He also had abdominal wall cellulitis. Patient was intubated for surgical procedure and initially it was difficult to extubate him. He is now s/p extubation yesterday. Now requiring supplemental oxygen. 1. Atrial for ablation with rapid ventricular rate/atrial flutter 2. Acute hypoxic respiratory failure 3. Systolic CHF Heart rate currently under control with Cardizem and Coreg. Patient is currently on Lovenox for anticoagulation. Chadsvasc 4 As per cardiology if the patient does not have any bleeding while on Lovenox he will be transitioned to Noac or Coumadin. Cardiology following the patient. Chest x-ray showed pulmonary vascular congestion, patient was given Lasix IV yesterday and diuresed well. He is now off of supplemental oxygen. Continue aspirin, statin, beta-yousuf, KAROL inhibitor, p.o. Lasix. 2. Abdominal wall cellulitis Afebrile overnight, WBC count normal. Patient is currently on IV antibiotics which will be continued. Surgery following the patient, patient is status post incision and drainage of the subcutaneous abdominal abscess. As of now surgery has not plan another incision and drainage. We will continue the patient on IV antibiotics over the weekend with Zosyn, vancomycin as per infectious disease. 3. Diabetes mellitus Blood sugars currently under control ranging between 100 and 150. 4. Tobacco smoking 5. COPD The patient was counseled on tobacco smoking. JoseoNeb treatments will be given as needed. Continue Symbicort. 6. Acute kidney injury likely prerenal Resolved. DVT prophylaxis, patient is currently on Lovenox.
--- NOTE | 2018-09-29 19:05 | P.PN ---
Subjective Interval history: Wound is clean; patient performing dressing changes. States it hurts to do the dressing change. Also states that cardiology wants to perform cardiac cath before he is discharged. Physical Exam Vital signs: Vital Signs 09/28/18 19:52 09/28/18 19:54 09/28/18 19:57 Temperature 98.3 F Pulse Rate 73 76 Respiratory Rate 15 28 H Blood Pressure 180/102 H 167/96 H Pulse Oximetry 09/28/18 20:00 09/28/18 21:04 09/28/18 22:00 Temperature Pulse Rate 73 70 70 Respiratory Rate 15 22 22 Blood Pressure Pulse Oximetry 09/28/18 23:00 09/29/18 00:00 09/29/18 01:00 Temperature 98.2 F Pulse Rate 71 72 68 Respiratory Rate 32 H 39 H 28 H Blood Pressure 145/88 H Pulse Oximetry 91 L 09/29/18 01:21 09/29/18 01:30 09/29/18 03:52 Temperature Pulse Rate 70 66 86 Respiratory Rate 25 H 16 Blood Pressure 145/88 H Pulse Oximetry 09/29/18 04:00 09/29/18 05:00 09/29/18 05:01 Temperature 97.8 F Pulse Rate 68 79 80 Respiratory Rate 24 32 H 48 H Blood Pressure 132/92 H Pulse Oximetry 94 L 09/29/18 05:28 09/29/18 06:00 09/29/18 07:11 Temperature Pulse Rate 79 68 Respiratory Rate 35 H 22 Blood Pressure 132/92 H Pulse Oximetry 09/29/18 08:00 09/29/18 08:13 09/29/18 09:03 Temperature 97.9 F Pulse Rate 70 79 71 Respiratory Rate 32 H 28 H Blood Pressure Pulse Oximetry 09/29/18 09:09 09/29/18 10:00 09/29/18 11:17 Temperature Pulse Rate 73 Respiratory Rate 31 H Blood Pressure 136/90 Pulse Oximetry 93 L 100 09/29/18 11:24 09/29/18 13:14 09/29/18 14:00 Temperature Pulse Rate 75 66 Respiratory Rate 44 H 19 Blood Pressure 118/84 Pulse Oximetry 94 L 09/29/18 16:00 Temperature Pulse Rate 73 Respiratory Rate Blood Pressure Pulse Oximetry Intake & Output 09/28/18 09/29/18 09/29/18 18:59 06:59 18:59 Intake Total 2014 1145 / 1145 615 / 615 Output Total 125 / 125 1500 / 1500 Balance 1890 / 1890 -355 / -355 615 / 615 Intake: IV 665 / 665 665 / 665 615 / 615 Magnesium Sulfate Inj 2 GM In 100 / 100 NS Inj 96 ML @ 50 mls/hr IV.SIG ONCE ONE Rx#:[id number] Zosyn 3.375 GM Premix 50 ML @ 50 / 50 150 / 150 100 / 100 100 mls/hr IV.SIG Q6H [facility] Rx#: [id number] Vancomycin Inj 1,500 MG In NS 515 / 515 515 / 515 515 / 515 Inj 500 ML @ 250 mls/hr IV.SIG Q12H [facility] Rx#:[id number] Oral 1350 / 1350 480 / 480 Output: Urine 125 / 125 1500 / 1500 Other: # Voids 1 6 Date of Last Bowel Movement 09/28/18 09/28/18 09/28/18 # Bowel Movements 2 0 - Constitutional no acute distress - Routine Abdominal Exam Present: wound (Dressing with some serosanguineous drainage present) - Urinary Catheter Management Indwelling Urethral Catheter Cath placed during this visit: yes, but has since been removed by the nurse Reason for continuing: Hourly intake/output Insertion date: 09/25/18 Removal date: 09/26/18 Removal time: 15:20 Results - Labs CBC & Chem 7: 09/28/18 05:21 09/29/18 04:17 Laboratory Results - last 24 hr 09/28/18 09/29/18 09/29/18 20:36 03:11 04:17 Sodium 141 Potassium 3.9 Chloride 108 H Carbon Dioxide 23.9 Anion Gap 9 BUN 19 H Creatinine 1.14 Estimated GFR 66 L POC Glucose 167 H 136 H Random Glucose 114 H Calcium 8.6 Magnesium 2.1 B-Natriuretic Peptide 09/29/18 09/29/18 09/29/18 04:17 08:41 11:30 Sodium Potassium Chloride Carbon Dioxide Anion Gap BUN Creatinine Estimated GFR POC Glucose 100 160 H Random Glucose Calcium Magnesium B-Natriuretic Peptide 328 H 09/29/18 18:09 Sodium Potassium Chloride Carbon Dioxide Anion Gap BUN Creatinine Estimated GFR POC Glucose 103 Random Glucose Calcium Magnesium B-Natriuretic Peptide Microbiology 09/26/18 11:03 Blood - Peripheral Aerobic Blood Culture - Preliminary No growth in 3 days 09/26/18 11:03 Blood - Peripheral Anaerobic Blood Culture - Preliminary No growth in 3 days 09/26/18 10:58 Blood - Peripheral Aerobic Blood Culture - Preliminary No growth in 3 days 09/26/18 10:58 Blood - Peripheral Anaerobic Blood Culture - Preliminary No growth in 3 days - Procedures None Assessment and Plan - Assessment (1) Cellulitis of abdominal wall Code(s): L03.311 - Cellulitis of abdominal wall Status: Acute Plan: Continue antibiotics and dressing changes. 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 Patient will be able to do this on his own at home after cardiac issues are addressed. - Plan Discussed Condition With: Patient - Attending Attestation I attest that I had a [id number] encounter with the patient on the same day, and personally performed and documented my assessment and findings in the medical record. The following services were provided during this hospital visit: Chart data review, vital sign assessments/reviewing monitor data Review of consultation notes if present Medication orders/review and/or management Ordering and/or reviewing lab tests Ordering and/or interpreting/reviewing x-rays and/or diagnostic studies Care of the patient and discussion of the patient with the care team Documentation time To help prompt me to consider important information that might be impacting today's encounter and assessment, Information from prior notes written by myself or my colleagues may have been "brought forward/copy and pasted" into today's note. (4) Subcutaneous abscess Qualifiers: Site of cutaneous abscess: trunk Site of cutaneous abscess of trunk: abdominal wall Qualified Code(s): L02.211 - Cutaneous abscess of abdominal wall
[2018-09-29] MEDS: Budesonide-Formoterol 80/4.5 MCG 6.9 GM Inhaler INH SCH (20:26)
[2018-09-30] MEDS: Oral Hygiene Kit OROPHARYNG SCH ×4 (00:23→16:33)
[2018-09-30] MEDS: Vancomycin Inj 1,500 MG in Sodium Chlor 0.9% Inj 500 ML IV.SIG SCH ×2 (00:26→12:36)
[2018-09-30] MEDS: HYDROmorphone PF Inj 1 MG/ML Ampul IV.PUSH PRN ×5 (02:23→21:10)
[2018-09-30] MEDS: Insulin NovoLOG Aspart Correctional Sugar Inj SQ SCH ×5 (03:41→20:47)
[2018-09-30] MEDS: oxyCODONE/Acetaminophen 10/325 Tablet PO PRN ×5 (04:46→23:18)
[2018-09-30] MEDS: Piperacil/Tazo 3.375 GM Premix 50 ML IV.SIG SCH ×4 (05:47→23:19)
[2018-09-30] MEDS: Chlorhexidine 0.12% Oral Kit 15 ML UDC OROPHARYNG SCH ×2 (06:59→20:47)
[2018-09-30] MEDS: Spironolactone 50 MG Tablet PO SCH ×2 (08:01→17:08)
[2018-09-30] MEDS: Furosemide 20 MG Tablet PO SCH (08:01)
[2018-09-30] MEDS: dilTIAZem 60 MG Tablet PO SCH ×4 (08:02→20:46)
[2018-09-30] MEDS: Carvedilol 12.5 MG Tablet PO SCH ×2 (08:02→20:46)
[2018-09-30] MEDS: Ramipril 5 MG Capsule PO SCH (08:02)
[2018-09-30] MEDS: Aspirin 325 MG Tablet PO SCH (08:02)
[2018-09-30] MEDS: Budesonide-Formoterol 80/4.5 MCG 6.9 GM Inhaler INH SCH ×2 (08:39→20:46)
[2018-09-30 09:30] LABS: Calcium 9.3 mg/dL (8.5-10.1); Carbon Dioxide 22.7 meq/L (21.0-32.0); Magnesium 2.2 mg/dL (1.5-2.5); Potassium 4.2 meq/L (3.5-5.1)
--- NOTE | 2018-09-30 11:04 | P.PNCA ---
Subjective Interval history: alert in nad Medications and Allergies Active Medications: Active Medications Albuterol (Duoneb Neb (Prn)) 1 ampul NEB Q2HR NEB PRN PRN Reason: SHORTNESS OF BREATH Last Admin: 09/29/18 01:29 Dose: 1 ampul Aspirin (Aspirin) 325 mg PO DAILY [facility] Last Admin: 09/30/18 08:02 Dose: 325 mg Atorvastatin Calcium (Lipitor) 40 mg PO HS [facility] Last Admin: 09/29/18 20:19 Dose: 40 mg Budesonide/Formoterol Fumarate (Symbicort 80/4.5 Mcg Inh) 2 puff INH BID [facility] Last Admin: 09/30/18 08:39 Dose: 2 puff Carvedilol (Coreg) 12.5 mg PO BID [facility] Last Admin: 09/30/18 08:02 Dose: 12.5 mg Chlorhexidine Gluconate (Peridex 0.12% Oral Kit) 15 ml OROPHARYNG BID@0800, 2000 [facility] Last Admin: 09/30/18 06:59 Dose: Not Given Dextrose (D50w Vial) 50 ml IV.PUSH UNSCH PRN PRN Reason: PER HYPOGLYCEMIA PROTOCOL Diltiazem HCl (Cardizem) 60 mg PO QID [facility] Last Admin: 09/30/18 08:02 Dose: 60 mg Enoxaparin Sodium (Lovenox Inj) 100 mg SQ Q12H [facility] Last Admin: 09/29/18 23:24 Dose: 100 mg Furosemide (Lasix) 20 mg PO DAILY [facility] Last Admin: 09/30/18 08:01 Dose: 20 mg Glucagon (Glucagon Inj) 1 mg OTHER PRN PRN PRN Reason: for Hypoglycemia Protocol Hydromorphone HCl (Dilaudid Pf Inj) 1 mg IV.PUSH Q4H PRN PRN Reason: BREAKTHROUGH PAIN Last Admin: 09/30/18 06:44 Dose: 1 mg Piperacillin/Tazobactam/Dextrose (Zosyn 3.375 Gm Premix) 50 mls @ 100 mls/hr IV.SIG Q6H [facility] Last Infusion: 09/30/18 06:31 Dose: Infused Vancomycin HCl 1,500 mg/ (Sodium Chloride) 515 mls @ 250 mls/hr IV.SIG Q12H [facility] Last Infusion: 09/30/18 03:42 Dose: Infused Dexmedetomidine HCl 200 mcg/ (Sodium Chloride) 50 mls @ 6.05 mls/hr IV.CONT TITRATE PRN; Protocol PRN Reason: Per Protocol Last Titration: 09/26/18 19:55 Dose: 0 mcg/kg/hr, 0 mls/hr Norepinephrine Bitartrate (Levophed-Dextrose 4 Mg/250 Ml Drip) 4 mg in 250 mls @ 7.5 mls/hr IV.SIG TITRATE PRN; Protocol PRN Reason: Per Protocol Last Titration: 09/26/18 09:20 Dose: 0 mcg/min, 0 mls/hr Insulin Aspart (Novolog Insulin Correctional Sugar Inj) 0 unit SQ ACHS AND 3AM [facility]; Protocol Last Admin: 09/30/18 08:07 Dose: Not Given Ipratropium [place] (Atrovent Neb) 0.5 mg NEB Q4HR NEB PRN PRN Reason: sob/wheezing Last Admin: 09/24/18 21:57 Dose: 0.5 mg Miscellaneous Medication () 1 each OROPHARYNG 0000,0400,1200,1600 [facility] Last Admin: 09/30/18 03:41 Dose: Not Given Naloxone HCl (Narcan Inj) 0.4 mg IV.PUSH UNSCH PRN PRN Reason: SEE LABEL COMMENTS Nicotine (Habitrol 21 Mg Patch.24 Hr) 1 patch T-DERMAL DAILY [facility] Last Admin: 09/30/18 08:03 Dose: Not Given Oxycodone/Acetaminophen (Percocet 10/325 Mg) 1 tab PO Q4H PRN PRN Reason: pain 6-10 Last Admin: 09/30/18 09:33 Dose: 1 tab Oxycodone/Acetaminophen (Percocet 5/325 Mg) 1 tab PO Q4H PRN PRN Reason: pain 1-5 Last Admin: 09/28/18 08:00 Dose: 1 tab Patch Removal (Remove Old Patch) 1 each T-DERMAL DAILY [facility] Last Admin: 09/30/18 08:03 Dose: Not Given Pharmacy Profile Note (Vancomycin Consult Pharmacy) 1 each OTHER UNSCH PRN PRN Reason: Pharmacy to dose Ramipril (Altace) 5 mg PO DAILY [facility] Last Admin: 09/30/18 08:02 Dose: 5 mg Senna/Docusate Sodium (Raven-Colace) 1 tab PO BID PRN PRN Reason: CONSTIPATION Sodium Chloride (Ns Flush) 2 ml IV.FLUSH PRN PRN PRN Reason: FLUSH AFTER USING IV ACCESS Sodium Chloride (Ns Flush) 2 ml IV.FLUSH BID [facility] Last Admin: 09/30/18 08:04 Dose: 2 ml Spironolactone (Aldactone) 50 mg PO BID@0900,1800 [facility] Last Admin: 09/30/18 08:01 Dose: 50 mg Terbutaline Sulfate (Brethine Inj) 1 mg SQ UNSCH PRN PRN Reason: For Extravasation Allergies Allergy/AdvReac Type Severity Reaction Status Date / Time No Known Allergies Allergy Verified 09/19/18 17:25 Home Medications Medication Instructions Recorded Confirmed Type aspirin 325 mg PO DAILY 09/19/18 09/19/18 History Physical Exam Vital signs: Vital Signs 09/29/18 11:17 09/29/18 11:24 09/29/18 13:14 Temperature Pulse Rate 75 Respiratory Rate 44 H Blood Pressure 118/84 Pulse Oximetry 100 94 L 09/29/18 14:00 09/29/18 16:00 09/29/18 19:39 Temperature 97.8 F Pulse Rate 66 73 54 L Respiratory Rate 19 16 Blood Pressure 126/99 H Pulse Oximetry 93 L 09/29/18 20:00 09/30/18 00:00 09/30/18 04:00 Temperature 98.6 F 97.6 F Pulse Rate 90 62 75 Respiratory Rate 16 16 Blood Pressure 111/68 140/88 Pulse Oximetry 95 94 L 09/30/18 08:00 Temperature 97.2 F L Pulse Rate 79 Respiratory Rate 20 Blood Pressure 122/77 Pulse Oximetry 92 L Intake & Output 09/29/18 09/30/18 09/30/18 18:59 06:59 18:59 Intake Total 615 / 615 615 / 615 Balance 615 / 615 615 / 615 Weight 111.1 kg Intake: IV 615 / 615 615 / 615 Zosyn 3.375 GM Premix 50 ML @ 100 / 100 100 / 100 100 mls/hr IV.SIG Q6H [facility] Rx#: [id number] Vancomycin Inj 1,500 MG In NS 515 / 515 515 / 515 Inj 500 ML @ 250 mls/hr IV.SIG Q12H [facility] Rx#:[id number] Other: # Voids 2 Date of Last Bowel Movement 09/28/18 09/28/18 - Constitutional no acute distress - Routine HEENT Exam Head: Present: normocephalic - Routine Neck Exam Present: supple - Routine Respiratory Exam Present: CTA bilaterally - Routine Cardiovascular Exam Present: S1, S2 - Routine Abdominal Exam Present: soft - Routine Extremities Exam Comments: no noelle - Urinary Catheter Management Indwelling Urethral Catheter Cath placed during this visit: yes, but has since been removed by the nurse Reason for continuing: Hourly intake/output Insertion date: 09/25/18 Removal date: 09/26/18 Removal time: 15:20 Results 09/28/18 05:21 09/30/18 07:30 Cardiac Enzymes 09/29/18 09/30/18 Range/Units 04:17 07:30 B-Natriuretic Peptide 328 H 238 H (0-100) pg/mL Coagulation 09/29/18 09/30/18 Range/Units 04:17 07:30 B-Natriuretic Peptide 328 H 238 H (0-100) pg/mL Lipids 09/28/18 Range/Units 05:21 Triglycerides 101 (42-150) mg/dL Cholesterol 140 (120-200) mg/dL HDL Cholesterol 30.1 L (40.0-60.0) mg/dL Cholesterol/HDL Ratio 4.65 Ratio Comprehensive Metabolic Panel 09/29/18 09/30/18 Range/Units 04:17 07:30 Sodium 141 138 (136-145) meq/L Potassium 3.9 4.2 (3.5-5.1) meq/L Chloride 108 H 107 (98-107) meq/L Carbon Dioxide 23.9 22.7 (21.0-32.0) meq/L BUN 19 H 22 H (7-18) mg/dL Creatinine 1.14 1.21 (0.60-1.30) mg/dL Calcium 8.6 9.3 (8.5-10.1) mg/dL Intake and Output 09/29/18 09/30/18 09/30/18 22:59 06:59 14:59 Intake Total 615 / 615 Balance 615 / 615 Intake: IV 615 / 615 Zosyn 3.375 GM Premix 50 ML @ 50 / 50 100 / 100 100 mls/hr IV.SIG Q6H [facility] Rx#: [id number] Vancomycin Inj 1,500 MG In NS 515 / 515 Inj 500 ML @ 250 mls/hr IV.SIG Q12H [facility] Rx#:[id number] Other: # Voids 2 Date of Last Bowel Movement 09/28/18 Weight 111.1 kg Assessment and Plan - Assessment (1) Cardiomyopathy Code(s): I42.9 - Cardiomyopathy, unspecified Status: Acute (2) Tobacco abuse Code(s): Z72.0 - Tobacco use Status: Acute (3) CAD (coronary artery disease) Code(s): I25.10 - Atherosclerotic heart disease of [place] coronary artery without angina pectoris Status: Acute (4) Cellulitis of abdominal wall Code(s): L03.311 - Cellulitis of abdominal wall Status: Acute (5) Atrial fibrillation with RVR Code(s): I48.91 - Unspecified atrial fibrillation Status: Acute (6) COPD (chronic obstructive pulmonary disease) Code(s): J44.9 - Chronic obstructive pulmonary disease, unspecified Status: Acute - Plan 1.) CAD - assymptomatic, check fasting lipids, lfts, on lovenox, start aspirin 81 mg qd if/when surgery is not indicated; possible c 10/03/18 2.) Cardiomyopathy - improving, ef=40%, start coreg. continue altace 5 mg qd and aldactone 50 mg bid, f/u bmp/bnp/mag 3.) Afib rvr - rate controlled on cardizem, h/o gid due to pud requiring transfusion in 2015, uncertain f/u due to lack of insurance; on lovenox, chadsvasc score =4, will consider noac or coumadin if no bleeding on lovenox and patient has f/u with pcp 4.) Patient strongly advised to stop smoking 5.) Situs inversus
[2018-09-30] MEDS: Enoxaparin Inj 100 MG/ML Syringe SQ SCH ×2 (11:56→23:19)
--- NOTE | 2018-09-30 13:53 | P.PN ---
Subjective Interval history: Follow-up for abdominal wall abscess, atrial fibrillation, cardiomyopathy. Patient is currently resting in bed. He denies any chest pain, shortness of breath, fever or chills. He does complain of mild abdominal pain. Physical Exam Vital signs: Vital Signs 09/29/18 14:00 09/29/18 16:00 09/29/18 19:39 Temperature 97.8 F Pulse Rate 66 73 54 L Respiratory Rate 19 16 Blood Pressure 126/99 H Pulse Oximetry 93 L 09/29/18 20:00 09/30/18 00:00 09/30/18 04:00 Temperature 98.6 F 97.6 F Pulse Rate 90 62 75 Respiratory Rate 16 16 Blood Pressure 111/68 140/88 Pulse Oximetry 95 94 L 09/30/18 08:00 09/30/18 12:00 Temperature 97.2 F L Pulse Rate 79 Respiratory Rate 20 18 Blood Pressure 122/77 Pulse Oximetry 92 L Intake & Output 09/29/18 09/30/18 09/30/18 18:59 06:59 18:59 Intake Total 615 / 615 615 / 615 Balance 615 / 615 615 / 615 Weight 111.1 kg Intake: IV 615 / 615 615 / 615 Zosyn 3.375 GM Premix 50 ML @ 100 / 100 100 / 100 100 mls/hr IV.SIG Q6H CHRISTIN Rx#: [id number] Vancomycin Inj 1,500 MG In NS 515 / 515 515 / 515 Inj 500 ML @ 250 mls/hr IV.SIG Q12H CHRISTIN Rx#:[id number] Other: # Voids 2 Date of Last Bowel Movement 09/28/18 09/28/18 Narrative: GENERAL: Alert, oriented x3, NAD. SKIN: Warm and dry. HEAD: Normocephalic. EYES: No scleral icterus. No injection or drainage. NECK: Supple, trachea midline. No JVD or lymphadenopathy. CARDIOVASCULAR: Regular rate and rhythm without murmurs, gallops, or rubs. RESPIRATORY: Breath sounds equal bilaterally. No accessory muscle use. GASTROINTESTINAL: Abdominal binder present, mildly tender to palpation in the lower abdomen. MUSCULOSKELETAL: No cyanosis, or edema. BACK: Nontender without obvious deformity. No CVA tenderness. - Urinary Catheter Management Indwelling Urethral Catheter Cath placed during this visit: yes, but has since been removed by the nurse Reason for continuing: Hourly intake/output Insertion date: 09/25/18 Removal date: 09/26/18 Removal time: 15:20 Results - Labs CBC & Chem 7: 09/28/18 05:21 09/30/18 07:30 Laboratory Results - last 24 hr 09/29/18 09/29/18 09/30/18 18:09 19:37 07:30 Sodium 138 Potassium 4.2 Chloride 107 Carbon Dioxide 22.7 Anion Gap 8 BUN 22 H Creatinine 1.21 Estimated GFR 62 L POC Glucose 103 143 H Random Glucose 103 Calcium 9.3 Magnesium 2.2 B-Natriuretic Peptide 09/30/18 09/30/18 09/30/18 07:30 08:07 12:39 Sodium Potassium Chloride Carbon Dioxide Anion Gap BUN Creatinine Estimated GFR POC Glucose 126 H 105 Random Glucose Calcium Magnesium B-Natriuretic Peptide 238 H Microbiology 09/26/18 11:03 Blood - Peripheral Aerobic Blood Culture - Preliminary No growth in 4 days 09/26/18 11:03 Blood - Peripheral Anaerobic Blood Culture - Preliminary No growth in 4 days 09/26/18 10:58 Blood - Peripheral Aerobic Blood Culture - Preliminary No growth in 4 days 09/26/18 10:58 Blood - Peripheral Anaerobic Blood Culture - Preliminary No growth in 4 days - Procedures 09/25/2018 Incision and drainage of abdominal wall cellulitis, wound VAC placement Assessment and Plan - Plan This patient is a 58-year-old male with a history of TIA, colon cancer, COPD, diabetes mellitus, history of abdominal repair approximately [address] Lau who presented to the emergency department and was found to be in atrial for ablation with rapid ventricular rate. He also had abdominal wall cellulitis. Patient was intubated for surgical procedure and initially it was difficult to extubate him. He was subsequently managed in the ICU. Patient's care was transferred to hospitalist service on 09/27/2018. Abdominal wall abscess Status post I&D by general surgery. Continue vancomycin and Zosyn per infectious disease Percocet, hydromorphone for the pain control. Coronary artery disease Mild cardiomyopathy with ejection fraction 40% Cardiology following. Continue aspirin 325 mg p.o. daily Continue carvedilol 12.5 mg p.o. daily, ramipril 5 mg p.o. daily, atorvastatin 40 mg nightly Continue furosemide 20 mg daily. Spironolactone 50 mg twice daily per cardiology. Cardiology is planning to do cardiac cath sometime next week. Atrial fibrillation with RVR Also continue diltiazem 60 mg 4 times daily. Would consider switching to long- acting diltiazem Continue carvedilol 12.5 mg p.o. daily. No clear indication to do bridging with Lovenox (BRIDGE trial). We will discuss with general surgery and cardiology to see if we can start anticoagulation with warfarin or apixaban Prediabetes Hemoglobin A1c 6.1. Continue sliding scale insulin while inpatient. We will consider metformin upon discharge. Patient's creatinine is 1.21 and GFR 62. Acute kidney injury Creatinine 1.65 on admission. Currently 1.2. Full code. Lovenox.
[2018-10-01] MEDS: Vancomycin Inj 1,500 MG in Sodium Chlor 0.9% Inj 500 ML IV.SIG SCH (00:33)
[2018-10-01] MEDS: HYDROmorphone PF Inj 1 MG/ML Ampul IV.PUSH PRN ×6 (01:32→23:01)
[2018-10-01] MEDS: Insulin NovoLOG Aspart Correctional Sugar Inj SQ SCH ×5 (02:50→20:07)
[2018-10-01] MEDS: oxyCODONE/Acetaminophen 10/325 Tablet PO PRN ×5 (03:09→20:36)
[2018-10-01] MEDS: Oral Hygiene Kit OROPHARYNG SCH ×4 (04:55→16:57)
[2018-10-01] MEDS: Piperacil/Tazo 3.375 GM Premix 50 ML IV.SIG SCH ×3 (05:37→17:34)
[2018-10-01 07:37] LABS: Hematocrit 39.8 % (39.0-51.0); Hemoglobin 13.6 gm/dL (13.0-17.0); Mean Corpuscular HGB Conc 34.1 % (32.0-36.0); Mean Corpuscular Hemoglobin 29.4 pg (27.0-34.0); Mean Corpuscular Volume 86.4 fL (80.0-100.0); Mean Platelet Volume 7.9 fL (7.0-11.0); Platelet Count 238 th/mm3 (150-450); Red Blood Count 4.61 mil/mm3 (4.50-5.90); Red Cell Distribution Width 14.2 % (11.6-17.2); White Blood Count 6.1 th/mm3 (4.0-11.0)
[2018-10-01] MEDS: Furosemide 20 MG Tablet PO SCH (08:19)
[2018-10-01] MEDS: Carvedilol 12.5 MG Tablet PO SCH ×2 (08:19→20:04)
[2018-10-01] MEDS: dilTIAZem 60 MG Tablet PO SCH ×4 (08:19→20:05)
[2018-10-01] MEDS: Aspirin 325 MG Tablet PO SCH (08:20)
[2018-10-01] MEDS: Spironolactone 50 MG Tablet PO SCH ×2 (08:20→17:34)
[2018-10-01] MEDS: Budesonide-Formoterol 80/4.5 MCG 6.9 GM Inhaler INH SCH ×2 (08:23→20:06)
[2018-10-01] MEDS: Ramipril 5 MG Capsule PO SCH (08:28)
[2018-10-01] MEDS: Chlorhexidine 0.12% Oral Kit 15 ML UDC OROPHARYNG SCH ×2 (10:04→20:06)
[2018-10-01] MEDS: Enoxaparin Inj 100 MG/ML Syringe SQ SCH ×2 (10:09→23:02)
[2018-10-01] MEDS ORDERED: Pharmacy Ordered Lab Info OTHER ONE (12:45)
--- NOTE | 2018-10-01 12:56 | P.PNID ---
Subjective Remarks: Patient is a 58-year-old male, presented to the hospital complaining of abdominal pain, swelling and redness. Patient has had multiple hernia repairs in the past. On reviewing his records it looks like he has had a chronic intraperitoneal fluid collection right where his hernia mesh is located. It had been aspirated in the past, and it looks like the last one was done in January 2018, and cultures came back negative. Patient stated he has had an episode of abdominal wall cellulitis, may be about 6 months ago, and he was given an oral antibiotics with resolution of the redness. The last abdominal surgery he has had was back in May of last year and at that time he was diagnosed to have a colon cancer and he underwent exploratory laparotomy, lysis of adhesions, right sided colectomy, and I believe hernia surgery. He has received chemotherapy, and the last time he had chemo was about 6 months ago. His current problems started about 5 days ago when he noted redness on his anterior abdominal wall. In the last 3 days, he had noted a focal area of swelling which apparently he has not had in the past. He has not had any fever chills or sweats. He has chronic nausea but no vomiting. Denies any diarrhea. Has not had any respiratory complaint or any urinary complaint. Patient has been admitted with a diagnosis of abdominal wall cellulitis. He had CT of the abdomen and pelvis which is showing a stable size of the intraperitoneal fluid collection that has been there and close to his hernia mesh, but there is a new superficial fluid collection that was also noted. His WBC is normal, and he has been afebrile. He is currently on vancomycin and Zosyn. Surgery is evaluating the patient. Infectious disease consultation has been requested to assist with evaluation and treatment of abdominal cellulitis, and possibly an infected fluid collection Notes reviewed Had surgery 09/25 Afebrile No complaints Getting cardiac work-up D/W Dr Melany Aguilera Antibiotics: Vancomycin Zosyn Past Medical History: COPD (chronic obstructive pulmonary disease) Colon cancer Diabetes mellitus Diverticulosis HTN (hypertension) TIA (transient ischemic attack) Umbilical hernia History of hernia repair Allergies/Adverse Reactions: Allergies No Known Allergies Allergy (Verified 09/19/18 17:25) Objective Vital Signs 09/30/18 15:36 09/30/18 16:00 09/30/18 20:00 Temperature 97.4 F L 97.8 F Pulse Rate 72 69 Respiratory Rate 18 20 18 Blood Pressure 126/68 125/58 L Pulse Oximetry 92 L 10/01/18 00:00 10/01/18 04:00 10/01/18 08:00 Temperature 97.6 F 97.6 F Pulse Rate 63 67 71 Respiratory Rate 20 20 Blood Pressure 118/72 147/90 H Pulse Oximetry 94 L 95 Intake & Output 09/30/18 10/01/18 10/01/18 18:59 06:59 18:59 Intake Total 1815 / 1815 2815 / 2815 Output Total 1800 / 1800 Balance 1815 / 1815 1015 / 1015 Weight 111.4 kg Intake: IV 615 / 615 615 / 615 Zosyn 3.375 GM Premix 50 ML @ 100 / 100 100 / 100 100 mls/hr IV.SIG Q6H CHRISTIN Rx#: [id number] Vancomycin Inj 1,500 MG In NS 515 / 515 515 / 515 Inj 500 ML @ 250 mls/hr IV.SIG Q12H CHRISTIN Rx#:[id number] Oral 1200 / 1200 2200 / 2200 Output: Urine 1800 / 1800 Other: # Voids 5 2 Date of Last Bowel Movement 09/28/18 09/28/18 # Bowel Movements 1 09/26/18 11:03 Blood - Peripheral Aerobic Blood Culture - Final No growth in 5 days 09/26/18 11:03 Blood - Peripheral Anaerobic Blood Culture - Final No growth in 5 days 09/26/18 10:58 Blood - Peripheral Aerobic Blood Culture - Final No growth in 5 days 09/26/18 10:58 Blood - Peripheral Anaerobic Blood Culture - Final No growth in 5 days 09/25/18 12:53 Abscess - Abdominal Gram Stain - Final 09/25/18 12:53 Abscess - Abdominal Wound Culture - Final No growth in 72 hours (aerobically and anaerobically ) 09/25/18 12:53 Abscess - Abdominal Gram Stain - Final 09/25/18 12:53 Abscess - Abdominal Wound Culture - Final No growth in 72 hours (aerobically and anaerobically ) Lab - Hematology Results 10/01/18 06:00 WBC 6.1 RBC 4.61 Hgb 13.6 Hct 39.8 MCV 86.4 MCH 29.4 MCHC 34.1 RDW 14.2 Plt Count 238 MPV 7.9 Lab - Chemistry Results 09/29/18 09/29/1818 18:09 19:37 07:30 Sodium 138 Potassium 4.2 Chloride 107 Carbon Dioxide 22.7 Anion Gap 8 BUN 22 H Creatinine 1.21 Estimated GFR 62 L POC Glucose 103 143 H Random Glucose 103 Calcium 9.3 Magnesium 2.2 B-Natriuretic Peptide 09/30/18 09/30/18 09/30/18 07:30 08:07 12:39 Sodium Potassium Chloride Carbon Dioxide Anion Gap BUN Creatinine Estimated GFR POC Glucose 126 H 105 Random Glucose Calcium Magnesium B-Natriuretic Peptide 238 H 09/30/18 09/30/18 10/01/18 17:25 19:16 02:47 Sodium Potassium Chloride Carbon Dioxide Anion Gap BUN Creatinine Estimated GFR POC Glucose 125 H 224 H 146 H Random Glucose Calcium Magnesium B-Natriuretic Peptide 10/01/18 10/01/18 10/01/18 06:00 07:33 12:31 Sodium Potassium Chloride Carbon Dioxide Anion Gap BUN Creatinine Estimated GFR POC Glucose 128 H 98 Random Glucose Calcium Magnesium B-Natriuretic Peptide 98 Imaging: ITS Impressions Abdomen/Pelvis CT 09/19/18 17:31 CONCLUSION: 1. Previous ventral hernia repair. Associated large, chronic and nonindurated appearing intraperitoneal fluid collection is without appreciable change but there is a new, small and indurated appearing subcutaneous fluid collection at the umbilicus. Just above the subcutaneous fluid collection is a new area of herniated fat. 2. Enlarged and fatty infiltrated liver, similar to before. 3. No acute abnormalities are seen within the abdominal or pelvic cavity. Patient has situs inversus. There is a moderate size hiatal hernia. Chest CTA 09/19/18 17:31 CONCLUSION: 1. No pulmonary embolus. 2. Very mild dependent atelectasis of both lungs. No pneumonia, effusion or pneumothorax. 3. Mild to moderate emphysema. 4. Coronary artery calcification. 5. Moderate size hiatal hernia. 6. Situs inversus. Needle Aspiration US 09/21/18 00:00 CONCLUSION: 1. Uncomplicated ultrasound-guided aspiration of superficial subcutaneous periumbilical fluid collection, as above. Abdomen X-Ray 09/24/18 00:00 CONCLUSION: Nonspecific intestinal gas pattern Chest X-Ray 09/26/18 06:00 CONCLUSION: Bilateral mostly basilar airspace disease similar to September 25. Physical Exam: GENERAL: awake and alert, not in respiratory distress. SKIN: Cool and dry. No generalized rash, no ecchymoses and no evidence of embolic lesions. HEAD: Atraumatic. Normocephalic. No temporal wasting, or tenderness. EYES: [place] conjunctiva. No petechia or hemorrhage. No scleral icterus. No injection or drainage. EARS, NOSE AND THROAT: Nose without bleeding or purulent nasal discharge. Orally intubated. NECK: Trachea midline. Supple and not tender, no meningeal signs CARDIOVASCULAR: Regular rate and rhythm. No murmurs, rubs or gallops heard RESPIRATORY: Clear to auscultation. Breath sounds equal bilaterally. No rales , wheezing or rhonchi ABDOMEN: Soft, obese, has a wound with packing, bloody drainage. has hernia. Bowel sounds present and normoactive. No guarding. No rebound. EXTREMITIES: No clubbing, cyanosis, or edema. NEURO: Awake and alert, non-focal PSYCHIATRIC: Calm and cooperative LINE: No evidence of infection Assessment and Plan - Plan Impression Abdominal wall cellulitis - has superficial fluid collection, ?infected - better - C/S negative (?due to prior Abx) Chronic fluid collection intraperitoneal close to his hernia mesh S/P multiple hernia repair Hx colon CA S/P R hemicolectomy, S/P chemo COPD Obesity Fevers,, better Respiratory failure, extubated Recommendation Change IV Vanco to Doxycycline Continue Zosyn Likely Cipro and Doxy on D/C x 14 days Monitor progress Cradiac work-up in progress D/W Dr Aguilera ([facility])
--- NOTE | 2018-10-01 12:56 | P.PN ---
Subjective Interval history: Follow-up for abdominal wall abscess, atrial fibrillation, cardiomyopathy. Patient is currently doing well. Denies any chest pain, shortness of breath, fever or chills. Physical Exam Vital signs: Vital Signs 09/30/18 15:36 09/30/18 16:00 09/30/18 20:00 Temperature 97.4 F L 97.8 F Pulse Rate 72 69 Respiratory Rate 18 20 18 Blood Pressure 126/68 125/58 L Pulse Oximetry 92 L 10/01/18 00:00 10/01/18 04:00 10/01/18 08:00 Temperature 97.6 F 97.6 F Pulse Rate 63 67 71 Respiratory Rate 20 20 Blood Pressure 118/72 147/90 H Pulse Oximetry 94 L 95 Intake & Output 09/30/18 10/01/18 10/01/18 18:59 06:59 18:59 Intake Total 1815 / 1815 2815 / 2815 Output Total 1800 / 1800 Balance 1815 / 1815 1015 / 1015 Weight 111.4 kg Intake: IV 615 / 615 615 / 615 Zosyn 3.375 GM Premix 50 ML @ 100 / 100 100 / 100 100 mls/hr IV.SIG Q6H CHRISTIN Rx#: [id number] Vancomycin Inj 1,500 MG In NS 515 / 515 515 / 515 Inj 500 ML @ 250 mls/hr IV.SIG Q12H CHRISTIN Rx#:[id number] Oral 1200 / 1200 2200 / 2200 Output: Urine 1800 / 1800 Other: # Voids 5 2 Date of Last Bowel Movement 09/28/18 09/28/18 # Bowel Movements 1 Narrative: GENERAL: Alert, oriented x3, NAD. SKIN: Warm and dry. HEAD: Normocephalic. EYES: No scleral icterus. No injection or drainage. NECK: Supple, trachea midline. No JVD or lymphadenopathy. CARDIOVASCULAR: Regular rate and rhythm without murmurs, gallops, or rubs. RESPIRATORY: Breath sounds equal bilaterally. No accessory muscle use. GASTROINTESTINAL: Abdominal binder present, mildly tender to palpation in the lower abdomen. MUSCULOSKELETAL: No cyanosis, or edema. BACK: Nontender without obvious deformity. No CVA tenderness. - Urinary Catheter Management Indwelling Urethral Catheter Cath placed during this visit: yes, but has since been removed by the nurse Reason for continuing: Hourly intake/output Insertion date: 09/25/18 Removal date: 09/26/18 Removal time: 15:20 Results - Labs CBC & Chem 7: 10/01/18 06:00 09/30/18 07:30 Laboratory Results - last 24 hr 09/30/18 09/30/18 10/01/18 17:25 19:16 02:47 WBC RBC Hgb Hct MCV MCH MCHC RDW Plt Count MPV POC Glucose 125 H 224 H 146 H B-Natriuretic Peptide 10/01/18 10/01/18 10/01/18 06:00 06:00 07:33 WBC 6.1 RBC 4.61 Hgb 13.6 Hct 39.8 MCV 86.4 MCH 29.4 MCHC 34.1 RDW 14.2 Plt Count 238 MPV 7.9 POC Glucose 128 H B-Natriuretic Peptide 98 10/01/18 12:31 WBC RBC Hgb Hct MCV MCH MCHC RDW Plt Count MPV POC Glucose 98 B-Natriuretic Peptide Microbiology 09/26/18 11:03 Blood - Peripheral Aerobic Blood Culture - Final No growth in 5 days 09/26/18 11:03 Blood - Peripheral Anaerobic Blood Culture - Final No growth in 5 days 09/26/18 10:58 Blood - Peripheral Aerobic Blood Culture - Final No growth in 5 days 09/26/18 10:58 Blood - Peripheral Anaerobic Blood Culture - Final No growth in 5 days - Procedures 09/25/2018 Incision and drainage of abdominal wall cellulitis, wound VAC placement Assessment and Plan - Plan This patient is a 58-year-old male with a history of TIA, colon cancer, COPD, diabetes mellitus, history of abdominal repair approximately [address] Lau who presented to the emergency department and was found to be in atrial for ablation with rapid ventricular rate. He also had abdominal wall cellulitis. Patient was intubated for surgical procedure and initially it was difficult to extubate him. He was subsequently managed in the ICU. Patient's care was transferred to hospitalist service on 09/27/2018. Abdominal wall abscess Status post I&D by general surgery. Infectious disease switched antibiotics from IV vancomycin to doxycycline and continue Zosyn. Upon discharge we will continue ciprofloxacin and doxycycline for 2 weeks. Percocet, hydromorphone for the pain control. Coronary artery disease Mild cardiomyopathy with ejection fraction 40% Cardiology following. Continue aspirin 325 mg p.o. daily Continue carvedilol 12.5 mg p.o. daily, ramipril 5 mg p.o. daily, atorvastatin 40 mg nightly Continue furosemide 20 mg daily. Spironolactone 50 mg twice daily per cardiology. Atrial fibrillation with RVR Also continue diltiazem 60 mg 4 times daily. Would consider switching to long- acting diltiazem Continue carvedilol 12.5 mg p.o. daily. Discussed with pipe turner Dr. Tomas who recommended to continue Lovenox. Dr. Tomas is planning to do cardiac cath on 10/03/2018. Patient can be on anti-coagulation after cardiac cath. Prediabetes Hemoglobin A1c 6.1. Continue sliding scale insulin while inpatient. We will consider metformin upon discharge. Patient's creatinine is 1.21 and GFR 62. Acute kidney injury Creatinine 1.65 on admission. Currently 1.2. Full code. Lovenox.
--- NOTE | 2018-10-01 14:21 | P.PNCA ---
Subjective Interval history: alert in nad Medications and Allergies Active Medications: Active Medications Albuterol (Duoneb Neb (Prn)) 1 ampul NEB Q2HR NEB PRN PRN Reason: SHORTNESS OF BREATH Last Admin: 09/29/18 01:29 Dose: 1 ampul Aspirin (Aspirin) 325 mg PO DAILY [facility] Last Admin: 10/01/18 08:20 Dose: 325 mg Atorvastatin Calcium (Lipitor) 40 mg PO HS [facility] Last Admin: 09/30/18 20:46 Dose: 40 mg Budesonide/Formoterol Fumarate (Symbicort 80/4.5 Mcg Inh) 2 puff INH BID [facility] Last Admin: 10/01/18 08:23 Dose: 2 puff Carvedilol (Coreg) 12.5 mg PO BID [facility] Last Admin: 10/01/18 08:19 Dose: 12.5 mg Chlorhexidine Gluconate (Peridex 0.12% Oral Kit) 15 ml OROPHARYNG BID@0800, 2000 [facility] Last Admin: 10/01/18 10:04 Dose: Not Given Dextrose (D50w Vial) 50 ml IV.PUSH UNSCH PRN PRN Reason: PER HYPOGLYCEMIA PROTOCOL Diltiazem HCl (Cardizem) 60 mg PO QID [facility] Last Admin: 10/01/18 13:57 Dose: 60 mg Doxycycline Hyclate (Vibramycin) 100 mg PO Q12HR [facility] Last Admin: 10/01/18 13:45 Dose: 100 mg Enoxaparin Sodium (Lovenox Inj) 100 mg SQ Q12H [facility] Last Admin: 10/01/18 10:09 Dose: 100 mg Furosemide (Lasix) 20 mg PO DAILY [facility] Last Admin: 10/01/18 08:19 Dose: 20 mg Glucagon (Glucagon Inj) 1 mg OTHER PRN PRN PRN Reason: for Hypoglycemia Protocol Hydromorphone HCl (Dilaudid Pf Inj) 1 mg IV.PUSH Q4H PRN PRN Reason: BREAKTHROUGH PAIN Last Admin: 10/01/18 13:59 Dose: 1 mg Piperacillin/Tazobactam/Dextrose (Zosyn 3.375 Gm Premix) 50 mls @ 100 mls/hr IV.SIG Q6H [facility] Last Infusion: 10/01/18 12:51 Dose: Infused Dexmedetomidine HCl 200 mcg/ (Sodium Chloride) 50 mls @ 6.05 mls/hr IV.CONT TITRATE PRN; Protocol PRN Reason: Per Protocol Last Titration: 09/26/18 19:55 Dose: 0 mcg/kg/hr, 0 mls/hr Norepinephrine Bitartrate (Levophed-Dextrose 4 Mg/250 Ml Drip) 4 mg in 250 mls @ 7.5 mls/hr IV.SIG TITRATE PRN; Protocol PRN Reason: Per Protocol Last Titration: 09/26/18 09:20 Dose: 0 mcg/min, 0 mls/hr Insulin Aspart (Novolog Insulin Correctional Sugar Inj) 0 unit SQ ACHS AND 3AM [facility]; Protocol Last Admin: 10/01/18 12:32 Dose: Not Given Ipratropium [place] (Atrovent Neb) 0.5 mg NEB Q4HR NEB PRN PRN Reason: sob/wheezing Last Admin: 09/24/18 21:57 Dose: 0.5 mg Miscellaneous Medication () 1 each OROPHARYNG 0000,0400,1200,1600 [facility] Last Admin: 10/01/18 12:22 Dose: Not Given Naloxone HCl (Narcan Inj) 0.4 mg IV.PUSH UNSCH PRN PRN Reason: SEE LABEL COMMENTS Nicotine (Habitrol 21 Mg Patch.24 Hr) 1 patch T-DERMAL DAILY [facility] Last Admin: 10/01/18 08:20 Dose: Not Given Oxycodone/Acetaminophen (Percocet 10/325 Mg) 1 tab PO Q4H PRN PRN Reason: pain 6-10 Last Admin: 10/01/18 12:21 Dose: 1 tab Oxycodone/Acetaminophen (Percocet 5/325 Mg) 1 tab PO Q4H PRN PRN Reason: pain 1-5 Last Admin: 09/28/18 08:00 Dose: 1 tab Patch Removal (Remove Old Patch) 1 each T-DERMAL DAILY [facility] Last Admin: 10/01/18 08:22 Dose: Not Given Ramipril (Altace) 5 mg PO DAILY [facility] Last Admin: 10/01/18 08:28 Dose: 5 mg Senna/Docusate Sodium (Raven-Colace) 1 tab PO BID PRN PRN Reason: CONSTIPATION Sodium Chloride (Ns Flush) 2 ml IV.FLUSH PRN PRN PRN Reason: FLUSH AFTER USING IV ACCESS Sodium Chloride (Ns Flush) 2 ml IV.FLUSH BID [facility] Last Admin: 10/01/18 08:22 Dose: 2 ml Spironolactone (Aldactone) 50 mg PO BID@0900,1800 [facility] Last Admin: 10/01/18 08:20 Dose: 50 mg Terbutaline Sulfate (Brethine Inj) 1 mg SQ UNSCH PRN PRN Reason: For Extravasation Allergies Allergy/AdvReac Type Severity Reaction Status Date / Time No Known Allergies Allergy Verified 09/19/18 17:25 Home Medications Medication Instructions Recorded Confirmed Type aspirin 325 mg PO DAILY 09/19/18 09/19/18 History Physical Exam Vital signs: Vital Signs 09/30/18 15:36 09/30/18 16:00 09/30/18 20:00 Temperature 97.4 F L 97.8 F Pulse Rate 72 69 Respiratory Rate 18 20 18 Blood Pressure 126/68 125/58 L Pulse Oximetry 92 L 10/01/18 00:00 10/01/18 04:00 10/01/18 08:00 Temperature 97.6 F 97.6 F Pulse Rate 63 67 71 Respiratory Rate 20 20 Blood Pressure 118/72 147/90 H Pulse Oximetry 94 L 95 10/01/18 13:45 Temperature Pulse Rate 67 Respiratory Rate Blood Pressure 138/65 Pulse Oximetry Intake & Output 09/30/18 10/01/18 10/01/18 18:59 06:59 18:59 Intake Total 1815 / 1815 2815 / 2815 50 / 50 Output Total 1800 / 1800 Balance 1815 / 1815 1015 / 1015 50 / 50 Weight 111.4 kg Intake: IV 615 / 615 615 / 615 50 / 50 Zosyn 3.375 GM Premix 50 ML @ 100 / 100 100 / 100 50 / 50 100 mls/hr IV.SIG Q6H [facility] Rx#: [id number] Vancomycin Inj 1,500 MG In NS 515 / 515 515 / 515 Inj 500 ML @ 250 mls/hr IV.SIG Q12H [facility] Rx#:[id number] Oral 1200 / 1200 2200 / 2200 Output: Urine 1800 / 1800 Other: # Voids 5 2 Date of Last Bowel Movement 09/28/18 09/28/18 # Bowel Movements 1 - Constitutional no acute distress - Routine HEENT Exam Head: Present: normocephalic - Routine Neck Exam Present: supple - Routine Respiratory Exam Present: CTA bilaterally - Routine Cardiovascular Exam Present: S1, S2 - Routine Abdominal Exam Present: soft - Routine Extremities Exam Comments: no noelle - Urinary Catheter Management Indwelling Urethral Catheter Cath placed during this visit: yes, but has since been removed by the nurse Reason for continuing: Hourly intake/output Insertion date: 09/25/18 Removal date: 09/26/18 Removal time: 15:20 Results 10/01/18 06:00 09/30/18 07:30 Cardiac Enzymes 09/30/18 10/01/18 Range/Units 07:30 06:00 B-Natriuretic Peptide 238 H 98 (0-100) pg/mL Coagulation 09/30/18 10/01/18 Range/Units 07:30 06:00 B-Natriuretic Peptide 238 H 98 (0-100) pg/mL CBC 10/01/18 Range/Units 06:00 WBC 6.1 (4.0-11.0) th/mm3 RBC 4.61 (4.50-5.90) mil/mm3 Hgb 13.6 (13.0-17.0) gm/dL Hct 39.8 (39.0-51.0) % Plt Count 238 (150-450) th/mm3 Comprehensive Metabolic Panel 09/30/18 Range/Units 07:30 Sodium 138 (136-145) meq/L Potassium 4.2 (3.5-5.1) meq/L Chloride 107 (98-107) meq/L Carbon Dioxide 22.7 (21.0-32.0) meq/L BUN 22 H (7-18) mg/dL Creatinine 1.21 (0.60-1.30) mg/dL Calcium 9.3 (8.5-10.1) mg/dL Intake and Output 09/30/18 10/01/18 10/01/18 22:59 06:59 14:59 Intake Total 1250 / 1250 2815 / 2815 50 / 50 Output Total 1800 / 1800 Balance 1250 / 1250 1015 / 1015 50 / 50 Intake: IV 50 / 50 615 / 615 50 / 50 Zosyn 3.375 GM Premix 50 ML @ 50 / 50 100 / 100 50 / 50 100 mls/hr IV.SIG Q6H [facility] Rx#: [id number] Vancomycin Inj 1,500 MG In NS 515 / 515 Inj 500 ML @ 250 mls/hr IV.SIG Q12H [facility] Rx#:[id number] Oral 1200 / 1200 2200 / 2200 Output: Urine 1800 / 1800 Other: # Voids 5 2 Date of Last Bowel Movement 09/28/18 09/28/18 # Bowel Movements 1 Weight 111.4 kg Assessment and Plan - Assessment (1) Cardiomyopathy Code(s): I42.9 - Cardiomyopathy, unspecified Status: Acute (2) Tobacco abuse Code(s): Z72.0 - Tobacco use Status: Acute (3) CAD (coronary artery disease) Code(s): I25.10 - Atherosclerotic heart disease of [place] coronary artery without angina pectoris Status: Acute (4) Cellulitis of abdominal wall Code(s): L03.311 - Cellulitis of abdominal wall Status: Acute (5) Atrial fibrillation with RVR Code(s): I48.91 - Unspecified atrial fibrillation Status: Acute (6) COPD (chronic obstructive pulmonary disease) Code(s): J44.9 - Chronic obstructive pulmonary disease, unspecified Status: Acute - Plan 1.) CAD - assymptomatic, check fasting lipids, lfts, on lovenox, start aspirin 81 mg qd if/when surgery is not indicated; possible [facility] 10/03/18 2.) Cardiomyopathy - improving, ef=40%, start coreg. continue altace 5 mg qd and aldactone 50 mg bid, f/u bmp/bnp/mag 3.) Afib rvr - rate controlled on cardizem, h/o gid due to pud requiring transfusion in 2015, uncertain f/u due to lack of insurance; on lovenox, chadsvasc score =4, will consider noac or coumadin if no bleeding on lovenox and patient has f/u with pcp 4.) Patient strongly advised to stop smoking 5.) Situs inversus
[2018-10-02] MEDS: Piperacil/Tazo 3.375 GM Premix 50 ML IV.SIG SCH ×3 (00:12→11:26)
[2018-10-02] MEDS: oxyCODONE/Acetaminophen 10/325 Tablet PO PRN ×6 (00:34→23:54)
[2018-10-02] MEDS: Oral Hygiene Kit OROPHARYNG SCH ×4 (00:43→15:31)
[2018-10-02] MEDS: HYDROmorphone PF Inj 1 MG/ML Ampul IV.PUSH PRN ×5 (02:59→22:15)
[2018-10-02] MEDS: Insulin NovoLOG Aspart Correctional Sugar Inj SQ SCH ×5 (03:12→20:47)
[2018-10-02] MEDS: Chlorhexidine 0.12% Oral Kit 15 ML UDC OROPHARYNG SCH ×2 (07:14→22:09)
[2018-10-02] MEDS: Furosemide 20 MG Tablet PO SCH (08:04)
[2018-10-02] MEDS: Aspirin 325 MG Tablet PO SCH (08:04)
[2018-10-02] MEDS: Carvedilol 12.5 MG Tablet PO SCH ×2 (08:04→20:47)
[2018-10-02] MEDS: dilTIAZem 60 MG Tablet PO SCH ×4 (08:04→20:47)
[2018-10-02] MEDS: Spironolactone 50 MG Tablet PO SCH ×2 (08:05→17:12)
[2018-10-02] MEDS: Ramipril 5 MG Capsule PO SCH (08:06)
[2018-10-02] MEDS: Budesonide-Formoterol 80/4.5 MCG 6.9 GM Inhaler INH SCH ×2 (08:09→22:09)
[2018-10-02] MEDS: Enoxaparin Inj 100 MG/ML Syringe SQ SCH ×2 (10:39→22:15)
--- NOTE | 2018-10-02 12:51 | P.PNID ---
Subjective Remarks: Patient is a 58-year-old male, presented to the hospital complaining of abdominal pain, swelling and redness. Patient has had multiple hernia repairs in the past. On reviewing his records it looks like he has had a chronic intraperitoneal fluid collection right where his hernia mesh is located. It had been aspirated in the past, and it looks like the last one was done in January 2018, and cultures came back negative. Patient stated he has had an episode of abdominal wall cellulitis, may be about 6 months ago, and he was given an oral antibiotics with resolution of the redness. The last abdominal surgery he has had was back in May of last year and at that time he was diagnosed to have a colon cancer and he underwent exploratory laparotomy, lysis of adhesions, right sided colectomy, and I believe hernia surgery. He has received chemotherapy, and the last time he had chemo was about 6 months ago. His current problems started about 5 days ago when he noted redness on his anterior abdominal wall. In the last 3 days, he had noted a focal area of swelling which apparently he has not had in the past. He has not had any fever chills or sweats. He has chronic nausea but no vomiting. Denies any diarrhea. Has not had any respiratory complaint or any urinary complaint. Patient has been admitted with a diagnosis of abdominal wall cellulitis. He had CT of the abdomen and pelvis which is showing a stable size of the intraperitoneal fluid collection that has been there and close to his hernia mesh, but there is a new superficial fluid collection that was also noted. His WBC is normal, and he has been afebrile. He is currently on vancomycin and Zosyn. Surgery is evaluating the patient. Infectious disease consultation has been requested to assist with evaluation and treatment of abdominal cellulitis, and possibly an infected fluid collection Notes reviewed No new complaints temps ok [facility] possibly tomorrow Had surgery 09/25 Afebrile Antibiotics: Doxycycline Zosyn Past Medical History: COPD (chronic obstructive pulmonary disease) Colon cancer Diabetes mellitus Diverticulosis HTN (hypertension) TIA (transient ischemic attack) Umbilical hernia History of hernia repair Allergies/Adverse Reactions: Allergies No Known Allergies Allergy (Verified 09/19/18 17:25) Objective Vital Signs 10/01/18 13:45 10/01/18 16:00 10/01/18 20:00 Temperature 97.5 F L 97.9 F Pulse Rate 67 66 72 Respiratory Rate 18 17 Blood Pressure 138/65 124/66 122/80 Pulse Oximetry 96 97 10/01/18 23:41 10/02/18 00:00 10/02/18 04:00 Temperature 97.4 F L 97.4 F L Pulse Rate 78 55 L 61 Respiratory Rate 15 14 Blood Pressure 116/80 148/99 H Pulse Oximetry 98 93 L 10/02/18 08:00 Temperature 97.4 F L Pulse Rate 68 Respiratory Rate 18 Blood Pressure 147/86 H Pulse Oximetry 93 L Intake & Output 10/01/18 10/02/18 10/02/18 18:59 06:59 18:59 Intake Total 808 / 808 720 / 720 50 / 50 Balance 808 / 808 720 / 720 50 / 50 Weight 110.9 kg Intake: IV 100 / 100 100 / 100 50 / 50 Zosyn 3.375 GM Premix 50 ML @ 100 / 100 100 / 100 50 / 50 100 mls/hr IV.SIG Q6H [facility] Rx#: [id number] Oral 708 / 708 620 / 620 Other: # Voids 6 2 Date of Last Bowel Movement 09/28/18 09/28/18 09/26/18 11:03 Blood - Peripheral Aerobic Blood Culture - Final No growth in 5 days 09/26/18 11:03 Blood - Peripheral Anaerobic Blood Culture - Final No growth in 5 days 09/26/18 10:58 Blood - Peripheral Aerobic Blood Culture - Final No growth in 5 days 09/26/18 10:58 Blood - Peripheral Anaerobic Blood Culture - Final No growth in 5 days Lab - Hematology Results 10/01/18 06:00 WBC 6.1 RBC 4.61 Hgb 13.6 Hct 39.8 MCV 86.4 MCH 29.4 MCHC 34.1 RDW 14.2 Plt Count 238 MPV 7.9 Lab - Chemistry Results 09/30/18 09/30/18 10/01/18 17:25 19:16 02:47 POC Glucose 125 H 224 H 146 H B-Natriuretic Peptide 10/01/18 10/01/18 10/01/18 06:00 07:33 12:31 POC Glucose 128 H 98 B-Natriuretic Peptide 98 10/01/18 10/01/18 10/02/18 17:32 19:38 03:08 POC Glucose 121 H 149 H 158 H B-Natriuretic Peptide 10/02/18 10/02/18 08:04 12:36 POC Glucose 107 170 H B-Natriuretic Peptide Imaging: ITS Impressions Abdomen/Pelvis CT 09/19/18 17:31 CONCLUSION: 1. Previous ventral hernia repair. Associated large, chronic and nonindurated appearing intraperitoneal fluid collection is without appreciable change but there is a new, small and indurated appearing subcutaneous fluid collection at the umbilicus. Just above the subcutaneous fluid collection is a new area of herniated fat. 2. Enlarged and fatty infiltrated liver, similar to before. 3. No acute abnormalities are seen within the abdominal or pelvic cavity. Patient has situs inversus. There is a moderate size hiatal hernia. Chest CTA 09/19/18 17:31 CONCLUSION: 1. No pulmonary embolus. 2. Very mild dependent atelectasis of both lungs. No pneumonia, effusion or pneumothorax. 3. Mild to moderate emphysema. 4. Coronary artery calcification. 5. Moderate size hiatal hernia. 6. Situs inversus. Needle Aspiration US 09/21/18 00:00 CONCLUSION: 1. Uncomplicated ultrasound-guided aspiration of superficial subcutaneous periumbilical fluid collection, as above. Abdomen X-Ray 09/24/18 00:00 CONCLUSION: Nonspecific intestinal gas pattern Chest X-Ray 09/26/18 06:00 CONCLUSION: Bilateral mostly basilar airspace disease similar to September 25. Physical Exam: GENERAL: awake and alert, NAD. SKIN: Cool and dry. No generalized rash EYES: [place] conjunctiva. No petechia or hemorrhage. No scleral icterus. No injection or drainage. EARS, NOSE AND THROAT: Nose without bleeding or purulent nasal discharge. Orally intubated. NECK: Trachea midline. Supple and not tender, no meningeal signs CARDIOVASCULAR: Regular rate and rhythm. No murmurs, rubs or gallops heard RESPIRATORY: Clear to auscultation. Breath sounds equal bilaterally. No rales , wheezing or rhonchi ABDOMEN: Soft, obese, has a wound with packing, clean, no periwound erythema or induration. has hernia. Bowel sounds present and normoactive. No guarding. No rebound. EXTREMITIES: No clubbing, cyanosis, or edema. NEURO: Awake and alert, non-focal PSYCHIATRIC: Calm and cooperative LINE: No evidence of infection Assessment and Plan - Plan Impression Abdominal wall cellulitis - has superficial fluid collection, ?infected - better - C/S negative (?due to prior Abx) Chronic fluid collection intraperitoneal close to his hernia mesh S/P multiple hernia repair Hx colon CA S/P R hemicolectomy, S/P chemo COPD Obesity Fevers,, better Respiratory failure, extubated Recommendation Continue Doxycycline Change Zosyn to Cipro Give 14 more days of Abx when he gets D/C Monitor progress Cardiac work-up in progress
--- NOTE | 2018-10-02 13:33 | P.PN ---
Subjective Interval history: Follow-up for abdominal wall abscess, atrial fibrillation, cardiomyopathy. Patient is currently doing well. He denies any chest pain, shortness of breath , fever or chills. He does have some abdominal discomfort. Physical Exam Vital signs: Vital Signs 10/01/18 13:45 10/01/18 16:00 10/01/18 20:00 Temperature 97.5 F L 97.9 F Pulse Rate 67 66 72 Respiratory Rate 18 17 Blood Pressure 138/65 124/66 122/80 Pulse Oximetry 96 97 10/01/18 23:41 10/02/18 00:00 10/02/18 04:00 Temperature 97.4 F L 97.4 F L Pulse Rate 78 55 L 61 Respiratory Rate 15 14 Blood Pressure 116/80 148/99 H Pulse Oximetry 98 93 L 10/02/18 08:00 10/02/18 12:00 Temperature 97.4 F L 97.7 F Pulse Rate 68 67 Respiratory Rate 18 18 Blood Pressure 147/86 H 144/81 H Pulse Oximetry 93 L 96 Intake & Output 10/01/18 10/02/18 10/02/18 18:59 06:59 18:59 Intake Total 808 / 808 720 / 720 50 / 50 Balance 808 / 808 720 / 720 50 / 50 Weight 110.9 kg Intake: IV 100 / 100 100 / 100 50 / 50 Zosyn 3.375 GM Premix 50 ML @ 100 / 100 100 / 100 50 / 50 100 mls/hr IV.SIG Q6H [facility] Rx#: [id number] Oral 708 / 708 620 / 620 Other: # Voids 6 2 Date of Last Bowel Movement 09/28/18 09/28/18 Narrative: GENERAL: Alert, oriented x3, NAD. SKIN: Warm and dry. HEAD: Normocephalic. EYES: No scleral icterus. No injection or drainage. NECK: Supple, trachea midline. No JVD or lymphadenopathy. CARDIOVASCULAR: Regular rate and rhythm without murmurs, gallops, or rubs. RESPIRATORY: Breath sounds equal bilaterally. No accessory muscle use. GASTROINTESTINAL: Abdominal binder present, mildly tender to palpation in the lower abdomen. MUSCULOSKELETAL: No cyanosis, or edema. BACK: Nontender without obvious deformity. No CVA tenderness. - Urinary Catheter Management Indwelling Urethral Catheter Cath placed during this visit: yes, but has since been removed by the nurse Reason for continuing: Hourly intake/output Insertion date: 09/25/18 Removal date: 09/26/18 Removal time: 15:20 Results - Labs CBC & Chem 7: 10/01/18 06:00 09/30/18 07:30 Laboratory Results - last 24 hr 10/01/18 10/01/18 10/01/18 12:54 17:32 19:38 POC Glucose 121 H 149 H Vancomycin Trough 17.9 H 10/02/18 10/02/18 10/02/18 03:08 08:04 12:36 POC Glucose 158 H 107 170 H Vancomycin Trough Microbiology 09/26/18 11:03 Blood - Peripheral Aerobic Blood Culture - Final No growth in 5 days 09/26/18 11:03 Blood - Peripheral Anaerobic Blood Culture - Final No growth in 5 days 09/26/18 10:58 Blood - Peripheral Aerobic Blood Culture - Final No growth in 5 days 09/26/18 10:58 Blood - Peripheral Anaerobic Blood Culture - Final No growth in 5 days - Procedures 09/25/2018 Incision and drainage of abdominal wall cellulitis, wound VAC placement Assessment and Plan - Plan This patient is a 58-year-old male with a history of TIA, colon cancer, COPD, diabetes mellitus, history of abdominal repair approximately [address] Lau who presented to the emergency department and was found to be in atrial for ablation with rapid ventricular rate. He also had abdominal wall cellulitis. Patient was intubated for surgical procedure and initially it was difficult to extubate him. He was subsequently managed in the ICU. Patient's care was transferred to hospitalist service on 09/27/2018. Abdominal wall abscess Status post I&D by general surgery. Infectious disease switched antibiotics from IV vancomycin to doxycycline and continue Zosyn. Upon discharge we will continue ciprofloxacin and doxycycline for 2 weeks. Percocet, hydromorphone for the pain control. Coronary artery disease Mild cardiomyopathy with ejection fraction 40% Cardiology following. Continue aspirin 325 mg p.o. daily Continue carvedilol 12.5 mg p.o. daily, ramipril 5 mg p.o. daily, atorvastatin 40 mg nightly Continue furosemide 20 mg daily. Spironolactone 50 mg twice daily per cardiology. Atrial fibrillation with RVR Also continue diltiazem 60 mg 4 times daily. Would consider switching to long- acting diltiazem Continue carvedilol 12.5 mg p.o. daily. Discussed with polymer scientist Dr. Tomas who recommended to continue Lovenox. Dr. Tomas is planning to do cardiac cath on 10/03/2018. -consider anti-coagulation after cath. Prediabetes Hemoglobin A1c 6.1. Continue sliding scale insulin while inpatient. We will consider metformin upon discharge. Patient's creatinine is 1.21 and GFR 62. Acute kidney injury Creatinine 1.65 on admission. Currently 1.2. Full code. Lovenox. Discharge plan: If no stent placed, patient can likely be discharged home on 10/03/2018.
--- NOTE | 2018-10-02 14:52 | P.PNCA ---
Subjective Interval history: alert in nad Medications and Allergies Active Medications: Active Medications Albuterol (Duoneb Neb (Prn)) 1 ampul NEB Q2HR NEB PRN PRN Reason: SHORTNESS OF BREATH Last Admin: 09/29/18 01:29 Dose: 1 ampul Aspirin (Aspirin) 325 mg PO DAILY [facility] Last Admin: 10/02/18 08:04 Dose: 325 mg Atorvastatin Calcium (Lipitor) 40 mg PO HS [facility] Last Admin: 10/01/18 20:04 Dose: 40 mg Budesonide/Formoterol Fumarate (Symbicort 80/4.5 Mcg Inh) 2 puff INH BID [facility] Last Admin: 10/02/18 08:09 Dose: 2 puff Carvedilol (Coreg) 12.5 mg PO BID [facility] Last Admin: 10/02/18 08:04 Dose: 12.5 mg Chlorhexidine Gluconate (Peridex 0.12% Oral Kit) 15 ml OROPHARYNG BID@0800, 2000 [facility] Last Admin: 10/02/18 07:14 Dose: Not Given Ciprofloxacin HCl (Cipro) 750 mg PO Q12H [facility] Last Admin: 10/02/18 13:37 Dose: 750 mg Dextrose (D50w Vial) 50 ml IV.PUSH UNSCH PRN PRN Reason: PER HYPOGLYCEMIA PROTOCOL Diltiazem HCl (Cardizem) 60 mg PO QID [facility] Last Admin: 10/02/18 12:36 Dose: 60 mg Doxycycline Hyclate (Vibramycin) 100 mg PO Q12HR [facility] Last Admin: 10/02/18 08:04 Dose: 100 mg Enoxaparin Sodium (Lovenox Inj) 100 mg SQ Q12H [facility] Last Admin: 10/02/18 10:39 Dose: 100 mg Furosemide (Lasix) 20 mg PO DAILY [facility] Last Admin: 10/02/18 08:04 Dose: 20 mg Glucagon (Glucagon Inj) 1 mg OTHER PRN PRN PRN Reason: for Hypoglycemia Protocol Hydromorphone HCl (Dilaudid Pf Inj) 1 mg IV.PUSH Q4H PRN PRN Reason: BREAKTHROUGH PAIN Last Admin: 10/02/18 11:26 Dose: 1 mg Dexmedetomidine HCl 200 mcg/ (Sodium Chloride) 50 mls @ 6.05 mls/hr IV.CONT TITRATE PRN; Protocol PRN Reason: Per Protocol Last Titration: 09/26/18 19:55 Dose: 0 mcg/kg/hr, 0 mls/hr Norepinephrine Bitartrate (Levophed-Dextrose 4 Mg/250 Ml Drip) 4 mg in 250 mls @ 7.5 mls/hr IV.SIG TITRATE PRN; Protocol PRN Reason: Per Protocol Last Titration: 09/26/18 09:20 Dose: 0 mcg/min, 0 mls/hr Insulin Aspart (Novolog Insulin Correctional Sugar Inj) 0 unit SQ ACHS AND 3AM [facility]RISTIN; Protocol Last Admin: 10/02/18 12:36 Dose: 1 unit Ipratropium [place] (Atrovent Neb) 0.5 mg NEB Q4HR NEB PRN PRN Reason: sob/wheezing Last Admin: 09/24/18 21:57 Dose: 0.5 mg Miscellaneous Medication () 1 each OROPHARYNG 0000,0400,1200,1600 [facility] Last Admin: 10/02/18 11:27 Dose: Not Given Naloxone HCl (Narcan Inj) 0.4 mg IV.PUSH UNSCH PRN PRN Reason: SEE LABEL COMMENTS Nicotine (Habitrol 21 Mg Patch.24 Hr) 1 patch T-DERMAL DAILY [facility] Last Admin: 10/02/18 08:04 Dose: 1 patch Oxycodone/Acetaminophen (Percocet 10/325 Mg) 1 tab PO Q4H PRN PRN Reason: pain 6-10 Last Admin: 10/02/18 13:37 Dose: 1 tab Oxycodone/Acetaminophen (Percocet 5/325 Mg) 1 tab PO Q4H PRN PRN Reason: pain 1-5 Last Admin: 09/28/18 08:00 Dose: 1 tab Patch Removal (Remove Old Patch) 1 each T-DERMAL DAILY [facility] Last Admin: 10/02/18 08:06 Dose: 1 each Ramipril (Altace) 5 mg PO DAILY [facility] Last Admin: 10/02/18 08:06 Dose: 5 mg Senna/Docusate Sodium (Raven-Colace) 1 tab PO BID PRN PRN Reason: CONSTIPATION Sodium Chloride (Ns Flush) 2 ml IV.FLUSH PRN PRN PRN Reason: FLUSH AFTER USING IV ACCESS Sodium Chloride (Ns Flush) 2 ml IV.FLUSH BID [facility] Last Admin: 10/02/18 08:06 Dose: 2 ml Spironolactone (Aldactone) 50 mg PO BID@0900,1800 [facility] Last Admin: 10/02/18 08:05 Dose: 50 mg Terbutaline Sulfate (Brethine Inj) 1 mg SQ UNSCH PRN PRN Reason: For Extravasation Allergies Allergy/AdvReac Type Severity Reaction Status Date / Time No Known Allergies Allergy Verified 09/19/18 17:25 Home Medications Medication Instructions Recorded Confirmed Type aspirin 325 mg PO DAILY 09/19/18 09/19/18 History Physical Exam Vital signs: Vital Signs 10/01/18 16:00 10/01/18 20:00 10/01/18 23:41 Temperature 97.5 F L 97.9 F 97.4 F L Pulse Rate 66 72 78 Respiratory Rate 18 17 15 Blood Pressure 124/66 122/80 116/80 Pulse Oximetry 96 97 98 10/02/18 00:00 10/02/18 04:00 10/02/18 08:00 Temperature 97.4 F L 97.4 F L Pulse Rate 55 L 61 68 Respiratory Rate 14 18 Blood Pressure 148/99 H 147/86 H Pulse Oximetry 93 L 93 L 10/02/18 12:00 Temperature 97.7 F Pulse Rate 67 Respiratory Rate 18 Blood Pressure 144/81 H Pulse Oximetry 96 Intake & Output 10/01/18 10/02/18 10/02/18 18:59 06:59 18:59 Intake Total 808 / 808 720 / 720 50 / 50 Balance 808 / 808 720 / 720 50 / 50 Weight 110.9 kg Intake: IV 100 / 100 100 / 100 50 / 50 Zosyn 3.375 GM Premix 50 ML @ 100 / 100 100 / 100 50 / 50 100 mls/hr IV.SIG Q6H [facility] Rx#: [id number] Oral 708 / 708 620 / 620 Other: # Voids 6 2 Date of Last Bowel Movement 09/28/18 09/28/18 - Constitutional no acute distress - Routine HEENT Exam Head: Present: normocephalic - Routine Neck Exam Present: supple - Routine Respiratory Exam Present: CTA bilaterally - Routine Cardiovascular Exam Present: S1, S2 - Routine Abdominal Exam Present: soft - Routine Extremities Exam Comments: no noelle - Urinary Catheter Management Indwelling Urethral Catheter Cath placed during this visit: yes, but has since been removed by the nurse Reason for continuing: Hourly intake/output Insertion date: 09/25/18 Removal date: 09/26/18 Removal time: 15:20 Results 10/01/18 06:00 09/30/18 07:30 Cardiac Enzymes 10/01/18 Range/Units 06:00 B-Natriuretic Peptide 98 (0-100) pg/mL Coagulation 10/01/18 Range/Units 06:00 B-Natriuretic Peptide 98 (0-100) pg/mL CBC 10/01/18 Range/Units 06:00 WBC 6.1 (4.0-11.0) th/mm3 RBC 4.61 (4.50-5.90) mil/mm3 Hgb 13.6 (13.0-17.0) gm/dL Hct 39.8 (39.0-51.0) % Plt Count 238 (150-450) th/mm3 Intake and Output 10/01/18 10/02/18 10/02/18 22:59 06:59 14:59 Intake Total 758 / 758 720 / 720 50 / 50 Balance 758 / 758 720 / 720 50 / 50 Intake: IV 50 / 50 100 / 100 50 / 50 Zosyn 3.375 GM Premix 50 ML @ 50 / 50 100 / 100 50 / 50 100 mls/hr IV.SIG Q6H [facility] Rx#: [id number] Oral 708 / 708 620 / 620 Other: # Voids 6 2 Date of Last Bowel Movement 09/28/18 Weight 110.9 kg Assessment and Plan - Assessment (1) Cardiomyopathy Code(s): I42.9 - Cardiomyopathy, unspecified Status: Acute (2) Tobacco abuse Code(s): Z72.0 - Tobacco use Status: Acute (3) CAD (coronary artery disease) Code(s): I25.10 - Atherosclerotic heart disease of [place] coronary artery without angina pectoris Status: Acute (4) Cellulitis of abdominal wall Code(s): L03.311 - Cellulitis of abdominal wall Status: Acute (5) Atrial fibrillation with RVR Code(s): I48.91 - Unspecified atrial fibrillation Status: Acute (6) COPD (chronic obstructive pulmonary disease) Code(s): J44.9 - Chronic obstructive pulmonary disease, unspecified Status: Acute - Plan 1.) CAD - assymptomatic, check fasting lipids, lfts, on lovenox, start aspirin 81 mg qd if/when surgery is not indicated; [facility] 10/03/18 2.) Cardiomyopathy - improving, ef=40%, start coreg. continue altace 5 mg qd and aldactone 50 mg bid, f/u bmp/bnp/mag 3.) Afib rvr - rate controlled on cardizem, h/o gid due to pud requiring transfusion in 2015, uncertain f/u due to lack of insurance; on lovenox, chadsvasc score =4, will consider noac or coumadin if no bleeding on lovenox and patient has f/u with pcp 4.) Patient strongly advised to stop smoking 5.) Situs inversus
--- NOTE | 2018-10-02 15:18 | P.PNGS ---
Subjective Interval history: Ambulating in the hallway Just showered No complaints Physical Exam Vital signs: Vital Signs 10/01/18 16:00 10/01/18 20:00 10/01/18 23:41 Temperature 97.5 F L 97.9 F 97.4 F L Pulse Rate 66 72 78 Respiratory Rate 18 17 15 Blood Pressure 124/66 122/80 116/80 Pulse Oximetry 96 97 98 10/02/18 00:00 10/02/18 04:00 10/02/18 08:00 Temperature 97.4 F L 97.4 F L Pulse Rate 55 L 61 68 Respiratory Rate 14 18 Blood Pressure 148/99 H 147/86 H Pulse Oximetry 93 L 93 L 10/02/18 12:00 Temperature 97.7 F Pulse Rate 67 Respiratory Rate 18 Blood Pressure 144/81 H Pulse Oximetry 96 Intake & Output 10/01/18 10/02/18 10/02/18 18:59 06:59 18:59 Intake Total 808 / 808 720 / 720 50 / 50 Balance 808 / 808 720 / 720 50 / 50 Weight 110.9 kg Intake: IV 100 / 100 100 / 100 50 / 50 Zosyn 3.375 GM Premix 50 ML @ 100 / 100 100 / 100 50 / 50 100 mls/hr IV.SIG Q6H [facility] Rx#: [id number] Oral 708 / 708 620 / 620 Other: # Voids 6 2 Date of Last Bowel Movement 09/28/18 09/28/18 Narrative: Alert and awake Abd: dressing place; wound bed clean and dry; no excess drainage - Urinary Catheter Management Indwelling Urethral Catheter Cath placed during this visit: yes, but has since been removed by the nurse Reason for continuing: Hourly intake/output Insertion date: 09/25/18 Removal date: 09/26/18 Removal time: 15:20 Results - Labs 10/03/18 04:05 10/03/18 04:05 Laboratory Results - last 24 hr 10/01/18 10/01/18 10/02/18 17:32 19:38 03:08 POC Glucose 121 H 149 H 158 H 10/02/18 10/02/18 08:04 12:36 POC Glucose 107 170 H - Imaging Imaging: ITS Impressions Abdomen/Pelvis CT 09/19/18 17:31 CONCLUSION: 1. Previous ventral hernia repair. Associated large, chronic and nonindurated appearing intraperitoneal fluid collection is without appreciable change but there is a new, small and indurated appearing subcutaneous fluid collection at the umbilicus. Just above the subcutaneous fluid collection is a new area of herniated fat. 2. Enlarged and fatty infiltrated liver, similar to before. 3. No acute abnormalities are seen within the abdominal or pelvic cavity. Patient has situs inversus. There is a moderate size hiatal hernia. Chest CTA 09/19/18 17:31 CONCLUSION: 1. No pulmonary embolus. 2. Very mild dependent atelectasis of both lungs. No pneumonia, effusion or pneumothorax. 3. Mild to moderate emphysema. 4. Coronary artery calcification. 5. Moderate size hiatal hernia. 6. Situs inversus. Needle Aspiration US 09/21/18 00:00 CONCLUSION: 1. Uncomplicated ultrasound-guided aspiration of superficial subcutaneous periumbilical fluid collection, as above. Abdomen X-Ray 09/24/18 00:00 CONCLUSION: Nonspecific intestinal gas pattern Chest X-Ray 09/26/18 06:00 CONCLUSION: Bilateral mostly basilar airspace disease similar to September 25. Assessment and Plan - Assessment (1) Cellulitis of abdominal wall Code(s): L03.311 - Cellulitis of abdominal wall Status: Acute Plan: 58 year old male with abdominal cellulitis; prior hernia repair and mesh present -s/p I&D of subcutaneous abdominal abscess -Regular diet tonight -Continue PO antibiotics -Continue wet to dry dressings BID -Follow up with Dr. 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 MELANY CORONADO I agree with above assessment and plan. The exam, history, and the medical decision-making described in the above note were completed with the assistance of the mid-level provider. I reviewed and agree with the findings presented. The following services were provided during this hospital visit: Chart data review, vital sign assessments/reviewing monitor data Review of consultations notes if present. Medication orders/review and/or management Ordering and/or reviewing lab tests Ordering and/or interpreting/reviewing x-rays and/or diagnostic studies Care of the patient and discussion of the patient with the care team Documentation time To help prompt me to consider important information that might be impacting today's encounter and assessment, Information from prior notes written by myself or my colleagues may have been "brought forward/copy and pasted" into today's note. (4) Subcutaneous abscess Qualifiers: Site of cutaneous abscess: trunk Site of cutaneous abscess of trunk: abdominal wall Qualified Code(s): L02.211 - Cutaneous abscess of abdominal wall
[2018-10-03] MEDS: Oral Hygiene Kit OROPHARYNG SCH ×4 (00:09→15:39)
[2018-10-03] MEDS: HYDROmorphone PF Inj 1 MG/ML Ampul IV.PUSH PRN ×4 (01:53→15:39)
[2018-10-03] MEDS: Insulin NovoLOG Aspart Correctional Sugar Inj SQ SCH ×3 (02:04→15:36)
[2018-10-03] MEDS: oxyCODONE/Acetaminophen 10/325 Tablet PO PRN ×2 (04:09→08:41)
[2018-10-03 04:58] LABS: Hematocrit 43.2 % (39.0-51.0); Hemoglobin 14.6 gm/dL (13.0-17.0); Mean Corpuscular HGB Conc 33.9 % (32.0-36.0); Mean Corpuscular Volume 85.4 fL (80.0-100.0); Mean Platelet Volume 7.9 fL (7.0-11.0); Platelet Count 272 th/mm3 (150-450); Red Blood Count 5.06 mil/mm3 (4.50-5.90); Red Cell Distribution Width 14.1 % (11.6-17.2); White Blood Count 7.5 th/mm3 (4.0-11.0)
[2018-10-03 05:27] LABS: Calcium 9.2 mg/dL (8.5-10.1); Carbon Dioxide 23.7 meq/L (21.0-32.0); Magnesium 2.1 mg/dL (1.5-2.5); Potassium 4.2 meq/L (3.5-5.1)
[2018-10-03] MEDS: Chlorhexidine 0.12% Oral Kit 15 ML UDC OROPHARYNG SCH (07:08)
[2018-10-03] MEDS: Aspirin 325 MG Tablet PO SCH (08:41)
[2018-10-03] MEDS: Spironolactone 50 MG Tablet PO SCH (08:41)
[2018-10-03] MEDS: Carvedilol 12.5 MG Tablet PO SCH (08:41)
[2018-10-03] MEDS: dilTIAZem 60 MG Tablet PO SCH ×2 (08:41→15:36)
[2018-10-03] MEDS: Furosemide 20 MG Tablet PO SCH (08:41)
[2018-10-03] MEDS: Ramipril 5 MG Capsule PO SCH (08:42)
[2018-10-03] MEDS: Budesonide-Formoterol 80/4.5 MCG 6.9 GM Inhaler INH SCH (08:50)
[2018-10-03] MEDS: Enoxaparin Inj 100 MG/ML Syringe SQ SCH (10:30)
[2018-10-03] MEDS ORDERED: Heparin/NS PF Inj 1,000 ML ONE (12:02)
[2018-10-03] MEDS ORDERED: Heparin 10,000 UNITS/10 ML Vial (for IV use) ONE (12:03)
[2018-10-03] MEDS ORDERED: Heparin/NS PF Inj 500 ML ONE (12:03)
[2018-10-03] MEDS ORDERED: fentaNYL Citrate Inj 100 MCG/2 ML Ampul ONE (12:03)
--- NOTE | 2018-10-03 13:10 | CATHPROC ---
[employer] HIS Report Study Information Study Number Admission Scheduled Start Study Start [id number] Sep 19 2018 9:36PM 10/03/2018 Oct 03 2018 11:55AM [place] [facility] Admit Source Facility Department Other [facility] - Health Management Consultant Physician and Clinical Staff Initial Roberto Guzman Sheet Metal Shop Helper Jazmín Pedro RN Recorder Lizett Machado,RT(R) Scrub Pily Jefferson ,RT(R) Scrub Student, DISPLAY COORDINATOR/RT(R) Procedures Performed Procedure Location (Site) Vessel Name Coronary Angiograms LCA Left Coronary Coronary Angiograms RCA Right Coronary L Heart Cath LV Gram-hand inj. LV LV Ventricle Wire insertion Fem Art (right) Femoral Art Equipment Time Dry Pan Operator Description Size Mfg Part Number Used/Scraped TRANSDUCER, TRCOLLEEN [id number] 11:58 HANSON GRIGSBY * Used W/STOCKCOCK *[id number] 538-446 *[id number] [id number] *[id number] [id number] *[id number] [id number] *[id number] [id number] *[id number] 11:58 Zebit BLANKET,WARM AIR CCL * Used *[id number] 11:58 Zebit PACK, CCL CUSTOM * Used *[id number] 11:58 Lucibel PACER PEN, SKIN DUAL W/ RULER * Used *[id number] 11:58 [employer] MEDICAL WIRE, 3MMJ .035 180CM 180CM Used *[id number] 11:58 NAMIC MANIFOLD, 4 PORT * Used *[id number] 11:58 NYCOMED OMNIPAQUE, 350 MG, 150ML 150ML [id number] Used [id number] 11:58 TERUMO MEDICAL SHEATH, FR4 TERUMO (10CM) FR 4 Used *[id number] History: Current Medications Medication Dosage/Unit Route Frequency Last Date/Time Taken Statins (any) Beta Basilio CARDIZEM LOVENOX ASA History: Allergies Allergy Reaction No Known Allergies History: Risk Factors Family History of Hypertension Dyslipidemia Previous [place] Previous Heart Failure Premature CAD Yes Yes No No No Prior Valve Prior PCI Prior CABG Surgery No No No Cerebrovascular Peripheral Artery Chronic Lung On Dialysis Diabetes Diabetes Therapy Disease Disease Disease No Yes No Yes Yes Oral History: Stress Tests Stress or Imaging Studies Performed No History: Other Current Smoker Method Packs a Day Years Used Pack Years Yes Cigarettes 1 35 35 Labs Hgb (g/dl) Hct (%) WBC (l/cumm) Platelets (thousands) 11.60-17.00 35.00-51.00 4.00-11.00 150.00-450.00 14.6 43.2 7.5 272 Glucose (mg/dl) BUN (mg/dl) Creatinine (mg/dl) BUN:Creatinine (1:x) 74.00-106.00 7.00-18.00 0.50-1.30 10.00-20.00 117 24 0.9 26.7 Na (meq/l) K (meq/l) 136.00-145.00 3.50-5.10 138 4.2 INR (PTT:PT) 0.90-1.10 1 CPK-MB (ng/ML) 0.50-3.60 Not Drawn Medication Medication Total Dose (Bolus/Oral) Medication Total Dosage/Unit 1% XYLOCAINE 20 mL FENTANYL 50 mcg VERSED 1 mg Medications (Bolus/Oral) Medication Time Given Dosage/Unit Administered By Reason FENTANYL 10/03/2018 12:32:21 PM 25 mcg Jazmín Pedro 25 mcg FENTANYL given in lab by Jazmín Pedro RN via Peripheral IV. VERSED 10/03/2018 12:49:16 PM 1 mg Jazmín Pedro 1 mg VERSED given in lab by Jazmín Pedro RN via Peripheral IV. FENTANYL 10/03/2018 12:49:20 PM 25 mcg Jazmín Pedro 25 mcg FENTANYL given in lab by Jazmín Pedro, ANNETTE via Peripheral IV. 1% XYLOCAINE 10/03/2018 12:50:50 PM 20 mL Roberto Tomas 20 mL 1% XYLOCAINE given in lab by Roberto Tomas in Right Groin via Subcutaneous. Medication (Drip) Medication Time Given Dosage/Unit Concentration/Unit Diluent (ml) Solution IV Solutions 10/03/2018 11:55:40 AM 50 mL (IV) NaCl .9 Patient arrived on IV Solutions via Peripheral IV. Pump/Drip Flow using NaCl .9. Initial Case Assessment Cardiovascular HR NIBP Chest Pain 58 115/56 0 Edema Present Skin color Skin None Normal Warm Dry Circulatory - Right Pulses Dorsalis Pedis Femoral 3 2 Scale (0,1,2,3,4,d) Circulatory - Left Pulses Dorsalis Pedis Femoral 3 2 Scale (0,1,2,3,4,d) Circulatory - Lower Extremities Color Lower Right Color Lower Left Normal Normal Neurological State Oriented to time-place- Alert Moves all extremities person Respiration - General Respiration Rate (B/min) 20 Final Case Assessment Cardiovascular HR Rhythm NIBP 73 reg 119/90 Edema Present Skin color Skin None Normal Warm Circulatory - Right Pulses Dorsalis Pedis Femoral 1 2 Scale (0,1,2,3,4,d) Circulatory - Left Pulses Dorsalis Pedis Femoral 1 2 Scale (0,1,2,3,4,d) Circulatory - Lower Extremities Color Lower Right Color Lower Left Normal Normal Neurological State Oriented to time-place- Alert Moves all extremities person Respiration - General Respiration Rate SpO2 (%) (B/min) 13 96 Chronological Log Time Study Chronological Log 11:50:19 Patient arrived via Bed. 11:50:22 Patient Name, D.O.B, / Armband Verified By R.N. 11:55:27 Consent signed by the physician and the patient and verified by the Health Management Consultant staff. 11:55:28 Pre-op and post- op instructions given; patient acknowledges understanding of instructions. 11:55:28 Verbal Stimulation=2 Physical Stimulation=2 Airway=2 Respiration=2 TOTAL=8. (0=absent, 1=li mited, 2=present) 11:55:31 Patient has been NPO for More than 6Hrs. 11:55:31 Skin Breakdown- none per patient 11:55:37 Patient Warmer Placed on the Table. 11:55:39 Timothy Prominences Protected 11:55:40 A # 20 IV was noted in the Forearm (left). Grade = 0 11:55:40 Patient arrived on IV Solutions via Peripheral IV. Pump/Drip Flow using NaCl .9. 11:55:42 History and physical on the chart or being dictated. Assessment: Initial Case, HR=58 BPM, XCTP=274/56 mmhg, Chest Pain=0, Edema=None, Color=Normal, Skin = Warm, Dry Right Pulses: [place] Ped=3, Femoral=2 Left Pulses: [place] Ped=3, Femoral=2 11:55:43 Lower Right Extremities: Color=Normal Lower Left Extremities: Color=Normal Neurological: State=Alert, Ox3, ZIMMERMAN Respiration: Resp=20 B/min Vitals capture started with the following parameters, Patient=Adult, Interval=5 min, Initial Pr eydfrq=396 mmHg, 11:55:53 Deflation Rate=5 mmHg, Cuff placed on Left Arm 11:56:36 HR=66 bpm, BJUQ=548/56 mmhg, Resp=15 B/min, Pain=0, Jackelyn=10, Casillas=2 12:01:27 HR=52 bpm, ZTKF=505/81 mmhg, SpO2=97.0 %, Resp=12 B/min 12:04:47 Bilateral groins prepped with 2% chlorhexidine, and draped after a 3 minute waiting time. 12:06:13 Reference ECG taken 12:07:17 HR=57 bpm, JQXV=854/90 mmhg, SpO2=94.0 %, Resp=16 B/min, Pain=0, Jackelyn=10, [place]=2 12:12:08 HR=56 bpm, NIBP=98/50 mmhg, SpO2=97.0 %, Resp=18 B/min, Pain=0, Jackelyn=10, Cas[place]=2 12:12:40 MD texted 12:17:03 HR=57 bpm, MXHN=271/81 mmhg, SpO2=98.0 %, Resp=13 B/min, Pain=0, Jackelyn=10, Casillas=2 12:18:39 Pressure channel 1 zeroed. 12:21:31 HR=56 bpm, YWLP=717/72 mmhg, SpO2=99.0 %, Resp=21 B/min, Pain=0, Jackelyn=10, Casillas=2 12:26:30 HR=62 bpm, FMZI=290/89 mmhg, SpO2=98.0 %, Resp=17 B/min, Pain=0, Jackelyn=10, [place]=2 12:31:31 HR=62 bpm, EWJC=689/87 mmhg, SpO2=96.0 %, Resp=16 B/min, Pain=0, Jackelyn=10, Cas[place]=2 12:32:21 25 mcg FENTANYL given in lab by Jazmín Pedro, ANNETTE via Peripheral IV. 12:36:32 HR=57 bpm, OBDH=523/74 mmhg, SpO2=93.0 %, Resp=10 B/min, Pain=0, Jackelyn=10, Casillas=2 12:41:39 HR=64 bpm, HLIK=968/58 mmhg, SpO2=94.0 %, Resp=16 B/min, Pain=0, Jackelyn=10, Casillas=2 12:45:13 MD arrived. 12:46:30 HR=61 bpm, EUJD=309/74 mmhg, SpO2=96.0 %, Resp=16 B/min, Pain=0, Jackelyn=10, Casillas=2 Time Out. Correct patient, correct procedure, correct physician, labs, allergies, and equipment verified with livestock laborer 12:49:10 team present. Fire risk assesment completed (see hard stop sheet for coding). Time Out Conc urred by MD and individual staff in procedure. 12:49:16 1 mg VERSED given in lab by Jazmín Pedro, RN via Peripheral IV. 12:49:20 25 mcg FENTANYL given in lab by Jazmín Pedro, ANNETTE via Peripheral IV. 12:50:27 Case Start 12:50:29 Verbal Stimulation=2 Physical Stimulation=2 Airway=2 Respiration=2 TOTAL=8. (0=absent, 1=li mited, 2=present) 12:50:50 20 mL 1% XYLOCAINE given in lab by Roberto Tomas in Right Groin via Subcutaneous. 12:51:33 HR=58 bpm, WMAN=204/83 mmhg, SpO2=96.0 %, Resp=16 B/min, Pain=0, Jackelyn=10, Casillas=2 12:52:02 Access site was Right Femoral Artery. 12:52:06 A wire was inserted via Fem Art (right). 12:52:07 A SHEATH, FR4 TERUMO (10CM) FR 4 was advanced into the Fem Art (right) using the Percutaneo us technique. A JR 4.0 INFINITI CATHETER FR 4 was advanced over a wire. OMNIPAQUE, 350 MG, 150ML 150ML was us ed for 12:53:07 injections. Recorded Pressure: LV, HR=62, Condition=Condition 1 12:55:15 (Left Ventricle) LV 105/1/8 12:55:25 The LV was manually injected with 10 cc's and visualized. OMNIPAQUE, 350 MG, 150ML 150ML us ed. Recorded Pressure: LV, Ao, HR=63, Condition=Condition 1 12:55:40 (Left Ventricle) LV 116/2/6, (Aorta) Ao 109/70/89 12:56:32 HR=64 bpm, QEJF=950/76 mmhg, SpO2=93.0 %, Resp=16 B/min, Pain=0, Jackelyn=10, Casillas=2 12:57:21 Catheter was removed A JL 5.0 INFINITI CATHETER FR 4 was advanced over a wire. OMNIPAQUE, 350 MG, 150ML 150ML was u sed for 12:57:33 injections. 12:58:50 The LCA was injected and visualized at various angles. OMNIPAQUE, 350 MG, 150ML 150ML use d. Recorded Pressure: Ao, HR=64, Condition=Condition 1 12:59:00 (Aorta) Ao 104/65/81 12:59:43 Catheter was removed A AL 2 INFINITI CATHETER FR 4 was advanced over a wire. OMNIPAQUE, 350 MG, 150ML 150ML was use d for 12:59:58 injections. 13:01:33 HR=72 bpm, AWNB=239/90 mmhg, SpO2=97.0 %, Resp=18 B/min, Pain=0, Jackelyn=10, Casillas=2 13:01:33 The RCA was injected and visualized at various angles. OMNIPAQUE, 350 MG, 150ML 150ML use d. 13:02:50 Catheter was removed 13:03:04 Case End (Physician broke scrub) Assessment: Final Case, HR=73 BPM, Rhythm=reg, EVMR=138/90 mmhg, Edema=None, Color=Normal, Ski n = Warm Right Pulses: [place] Ped=1, Femoral=2 Left Pulses: [place] Ped=1, Femoral=2 13:03:06 Lower Right Extremities: Color=Normal Lower Left Extremities: Color=Normal Neurological: State=Alert, Ox3, [place] Respiration: Resp=13 B/min, SpO2=96 % 13:04:08 Catheter(s) removed without difficulty 13:04:11 Sheath(s) left in place, will be removed in Holding Area 13:04:15 Sterile dressing applied to site 13:04:16 No case complications noted. 13:04:17 Cine recording checked. 13:04:18 Bedside Report will be given. 13:04:22 A Left Heart Cath was performed. 13:04:25 Clinical correlaton risk stratification. 13:06:51 Vitals capture stopped. End Study - Contrast Media Used In Study Contrast Total Opened (mL) Total Used (mL) Total Wasted (mL) Omnipaque 350 40 40 0 End Study - Maximum Contrast Load Max Contrast Load (mL) 616.2 End Study - Radiation Exposure Fluoro Time (minutes) 3.9 End Study - Patient Disposition Complications Transferred To No Health Management Consultant Holding
[2018-10-03] MEDS ORDERED: Iohexol 350 MG/ML 50 ML Vial (for Cath Lab) IVCONTRAST ONE (13:57)
--- NOTE | 2018-10-03 14:27 | MR ---
cc: Roberto Tomas MD DATE: 10/03/2018 PROCEDURE: 1. Left heart catheterization. 2. Left ventriculography. 3. Coronary angiography. INDICATION: Non-STEMI, coronary artery disease, cardiomyopathy, atrial fibrillation, situs inversus. PROCEDURE IN DETAIL: The patient was brought to the cardiac catheterization lab and prepped and draped in the usual sterile fashion; 10 mL of 1% lidocaine was used locally to anesthetize the right common femoral artery. A 4-Georgian sheath was placed in right common femoral artery. A 4-Georgian JR4, JL5 and AL2 catheters were used to perform left ventriculography, coronary angiography. FINDINGS: The LV pressure is 105/3-4. Ejection fraction is 40%. The left main coronary artery has a rightward origin as to be expected from the history of situs inversus. There is no significant disease in the left main coronary artery. LAD is transapical. There is mild disease in the proximal segment up to 20% angiographically. The first diagonal comes off the mid to distal segment; has no significant disease angiographically. Left circumflex vessel has mild diffuse disease up to 20% angiographically in the proximal mid segment. First obtuse marginal vessel has a high takeoff. It might even be a ramus intermedius vessel. It bifurcates proximally; has no significant obstructive disease. The right coronary artery is large and dominant; mild diffuse disease in the midsegment, less than 20% angiographically. CONCLUSION: 1. Angiographically mild 3-vessel coronary artery disease in a right dominant system with typical situs inversus anatomy with the left main coronary artery having a rightward origin and the right coronary artery having a leftward origin. 2. Cardiomyopathy of 40%-45%. LV pressure is consistent with hypovolemic status. RECOMMENDATIONS: 1. I have strongly advised the patient to stop smoking. 2. Recommend medical management of coronary artery disease, cardiac risk factor modification. Roberto Tomas MD AWC/wil/[email or web address] , 01:08 PM , 01:15 PM
--- NOTE | 2018-10-03 15:22 | P.PN ---
Subjective Interval history: Follow-up for abdominal wall abscess, atrial fibrillation, cardiomyopathy. Some abd pain at the surgical site controlled by meds. He denies any chest pain, shortness of breath, fever or chills. No n/v/d/c. No bleeding so far. Needs NOAC or coumadin, cardio ff Physical Exam Vital signs: Vital Signs 10/02/18 16:00 10/02/18 20:00 10/02/18 21:08 Temperature 97.6 F 97.1 F L Pulse Rate 61 70 61 Respiratory Rate 18 18 Blood Pressure 129/75 158/83 H Pulse Oximetry 96 94 L 10/03/18 00:00 10/03/18 04:00 10/03/18 08:00 Temperature 97.3 F L 97.2 F L 97.7 F Pulse Rate 70 69 77 Respiratory Rate 18 18 20 Blood Pressure 158/83 H 127/82 128/100 H Pulse Oximetry 94 L 94 L 96 10/03/18 13:33 Temperature Pulse Rate Respiratory Rate Blood Pressure Pulse Oximetry 97 Intake & Output 10/02/18 10/03/18 10/03/18 18:59 06:59 18:59 Intake Total 770 / 770 360 / 360 120 / 120 Output Total 1200 / 1200 Balance 770 / 770 -840 / -840 120 / 120 Weight 110.9 kg Intake: IV 50 / 50 20 / 20 Heparin/NS PF Inj 500 ML @ 0 20 / 20 mls/hr .ROUTE [facility] Rx#: [id number] Zosyn 3.375 GM Premix 50 ML @ 50 / 50 100 mls/hr IV.SIG Q6H [facility] Rx#: [id number] Oral 720 / 720 360 / 360 Anesthesia Amount 100 / 100 Output: Urine 1200 / 1200 Other: # Voids 4 4 Narrative: GENERAL: Alert, oriented x3, appears in NAD. CARDIOVASCULAR: Regular rate and rhythm without murmurs, gallops, or rubs. RESPIRATORY: Breath sounds equal bilaterally. No accessory muscle use. GASTROINTESTINAL: Abdominal binder in place, mildly tender to palpation in the lower abdomen. No rebound. MUSCULOSKELETAL: No cyanosis, or edema. - Urinary Catheter Management Indwelling Urethral Catheter Cath placed during this visit: yes, but has since been removed by the nurse Reason for continuing: Hourly intake/output Insertion date: 09/25/18 Removal date: 09/26/18 Removal time: 15:20 Results - Labs CBC & Chem 7: 10/03/18 04:05 10/03/18 04:05 Laboratory Results - last 24 hr 10/02/18 10/02/18 10/03/18 17:18 20:44 02:00 WBC RBC Hgb Hct MCV MCH MCHC RDW Plt Count MPV Sodium Potassium Chloride Carbon Dioxide Anion Gap BUN Creatinine Estimated GFR POC Glucose 92 136 H 139 H Random Glucose Calcium Magnesium B-Natriuretic Peptide 10/03/18 10/03/18 10/03/18 04:05 04:05 04:05 WBC 7.5 RBC 5.06 Hgb 14.6 Hct 43.2 MCV 85.4 MCH 29.0 MCHC 33.9 RDW 14.1 Plt Count 272 MPV 7.9 Sodium 138 Potassium 4.2 Chloride 107 Carbon Dioxide 23.7 Anion Gap 7 BUN 24 H Creatinine 0.97 Estimated GFR 80 L POC Glucose Random Glucose 107 H Calcium 9.2 Magnesium 2.1 B-Natriuretic Peptide 91 10/03/18 08:48 WBC RBC Hgb Hct MCV MCH MCHC RDW Plt Count MPV Sodium Potassium Chloride Carbon Dioxide Anion Gap BUN Creatinine Estimated GFR POC Glucose 117 H Random Glucose Calcium Magnesium B-Natriuretic Peptide Microbiology 09/25/18 12:53 Abscess - Abdominal Fungal Smear - Final No fungal elements seen 09/25/18 12:53 Abscess - Abdominal Fungal Culture - Preliminary No growth in 1 week 09/25/18 12:53 Abscess - Abdominal Acid Fast Bacilli Smear - Final No acid fast bacilli seen 09/25/18 12:53 Abscess - Abdominal Mycobacterial Culture - Preliminary No growth in 1 week 09/25/18 12:53 Abscess - Abdominal Fungal Smear - Final No fungal elements seen 09/25/18 12:53 Abscess - Abdominal Fungal Culture - Preliminary No growth in 1 week 09/25/18 12:53 Abscess - Abdominal Acid Fast Bacilli Smear - Final No acid fast bacilli seen 09/25/18 12:53 Abscess - Abdominal Mycobacterial Culture - Preliminary No growth in 1 week - Procedures 09/25/2018 Incision and drainage of abdominal wall cellulitis, wound VAC placement Assessment and Plan - Plan This patient is a 58-year-old male with a history of TIA, colon cancer, COPD, diabetes mellitus, history of abdominal repair approximately [address] Lau who presented to the emergency department and was found to be in atrial for ablation with rapid ventricular rate. He also had abdominal wall cellulitis. Patient was intubated for surgical procedure and initially it was difficult to extubate him. He was subsequently managed in the ICU. Patient's care was transferred to hospitalist service on 09/27/2018. Abdominal wall abscess Status post I&D by general surgery. Infectious disease switched antibiotics from IV vancomycin to doxycycline and continue Zosyn. Upon discharge we will continue ciprofloxacin and doxycycline for 2 weeks. Percocet, hydromorphone for the pain control. Coronary artery disease Mild cardiomyopathy with ejection fraction 40% Cardiology following. Continue aspirin 325 mg p.o. daily. Consider NOAC per cardio. Will DC ASA and start eliquis patient to follow up as OP with cardio, pcp and surgeon Continue carvedilol 12.5 mg p.o. daily, ramipril 5 mg p.o. daily, atorvastatin 40 mg nightly Continue furosemide 20 mg daily. Spironolactone 50 mg twice daily per cardiology. Atrial fibrillation with RVR Also continue diltiazem 60 mg 4 times daily. Would consider switching to long- acting diltiazem Continue carvedilol 12.5 mg p.o. daily. Discussed with livestock commission agent Dr. Tomas who recommended to continue Lovenox. Dr. Tomas is planning to do cardiac cath on 10/03/2018. -consider anti-coagulation after cath. Prediabetes Hemoglobin A1c 6.1. Continue sliding scale insulin while inpatient. We will consider metformin upon discharge. Patient's creatinine is 1.21 and GFR 62. Acute kidney injury Creatinine 1.65 on admission. Currently 1.2. Full code. Lovenox. Discharge plan: pending cardiology clearance. Needs NOAC or coumadin at DC if no more bleeding per cardio. Will have eliquis at DC discussed with CM. Poss DC later today if cleared by cardio, amd all arrangements are done . Discussed with CM meds arranged for DC.
--- NOTE | 2018-10-03 16:24 | P.DS ---
Date of admission: 09/19/18 21:36 Primary care physician: No Primary Care Physician Brief History from admission: 58-year-old male with a past medical history significant for previous TIA, history of colon cancer, COPD and diabetes mellitus presents to the emergency department for evaluation of abdominal pain, swelling and redness times 1 week. The patient denies any associated fevers or chills. He had a hernia repair with Dr. Lau approximately 1 year ago. He reports he has had one episode of cellulitis requiring oral antibiotics since that time. He is status post seroma drainage on 02/10/18. He complains of significant abdominal pain however is moving about his room and eating and drinking normally. He denies any nausea /vomiting/diarrhea. No abdominal distention. No chest pain or shortness of breath. No focal neurologic deficits. The patient denies any palpitations however was found to be in atrial fibrillation with rapid ventricular response on his arrival to the emergency department. He does not have any previous history of A. fib or coronary artery disease. DS: Medications - Discharge Medications Prescriptions: apixaban [Eliquis] 5 mg PO BID #60 tab atorvastatin 40 mg PO HS #90 tab budesonide-formoterol [Symbicort] 2 puff INH BID 30 Days g carvedilol [Coreg] 12.5 mg PO BID 30 Days #60 tab ciprofloxacin HCl 750 mg PO Q12H #28 tab doxycycline hyclate 100 mg PO Q12HR #28 cap furosemide 20 mg PO DAILY #30 tab ramipril 5 mg PO DAILY #30 cap spironolactone 50 mg PO DAILY #30 tab DS: Summary Hospital Course: This patient is a 58-year-old male with a history of TIA, colon cancer, COPD, diabetes mellitus, history of abdominal repair approximately [address] Lau who presented to the emergency department and was found to be in atrial for ablation with rapid ventricular rate. He also had abdominal wall cellulitis. Patient was intubated for surgical procedure and initially it was difficult to extubate him. He was subsequently managed in the ICU. Patient's care was transferred to hospitalist service on 09/27/2018. Abdominal wall abscess Status post I&D by general surgery. Infectious disease switched antibiotics from IV vancomycin to doxycycline and continue Zosyn. Upon discharge we will continue ciprofloxacin and doxycycline for 2 weeks. Percocet, hydromorphone for the pain control. Coronary artery disease Mild cardiomyopathy with ejection fraction 40% Cardiology following. Continue aspirin 325 mg p.o. daily. Consider NOAC per cardio. Will DC ASA and start eliquis patient to follow up as OP with cardio, pcp and surgeon Continue carvedilol 12.5 mg p.o. daily, ramipril 5 mg p.o. daily, atorvastatin 40 mg nightly Continue furosemide 20 mg daily. Spironolactone 50 mg twice daily per cardiology. Atrial fibrillation with RVR Also continue diltiazem 60 mg 4 times daily. Would consider switching to long- acting diltiazem Continue carvedilol 12.5 mg p.o. daily. Discussed with dry lumber grader Dr. Tomas who recommended to continue Lovenox. Dr. Tomas is planning to do cardiac cath on 10/03/2018. -consider anti-coagulation after cath. Prediabetes Hemoglobin A1c 6.1. Continue sliding scale insulin while inpatient. We will consider metformin upon discharge. Patient's creatinine is 1.21 and GFR 62. Acute kidney injury Creatinine 1.65 on admission. Currently 1.2. Full code. Lovenox. Discharge plan: pending cardiology clearance. Needs NOAC or coumadin at DC if no more bleeding per cardio. Will have eliquis at DC discussed with CM. Patient improved, discharged home in stable condition to follow-up with PCP, and consultants as outpatient. - Time Spent with Patient Total time spent providing and/or coordinating discharge services: Greater than 30 minutes - Quality: VTE Deep Vein Thrombosis/Pulmonary Embolism Present on Admission: No Exam Vital signs: Vital Signs 10/02/18 20:00 10/02/18 21:08 10/03/18 00:00 Temperature 97.1 F L 97.3 F L Pulse Rate 70 61 70 Respiratory Rate 18 18 18 Blood Pressure 158/83 H 158/83 H Pulse Oximetry 94 L 94 L 10/03/18 04:00 10/03/18 08:00 10/03/18 13:33 Temperature 97.2 F L 97.7 F Pulse Rate 69 77 Respiratory Rate 18 20 Blood Pressure 127/82 128/100 H Pulse Oximetry 94 L 96 97 Intake & Output 10/02/18 10/03/18 10/03/18 18:59 06:59 18:59 Intake Total 770 / 770 360 / 360 120 / 120 Output Total 1200 / 1200 Balance 770 / 770 -840 / -840 120 / 120 Weight 110.9 kg Intake: IV 50 / 50 20 / 20 Heparin/NS PF Inj 500 ML @ 0 20 / 20 mls/hr .ROUTE .[facility] Rx#: [id number] Zosyn 3.375 GM Premix 50 ML @ 50 / 50 100 mls/hr IV.SIG Q6H [facility] Rx#: [id number] Oral 720 / 720 360 / 360 Anesthesia Amount 100 / 100 Output: Urine 1200 / 1200 Other: # Voids 4 4 Narrative: GENERAL: Alert, oriented x3, appears in NAD. CARDIOVASCULAR: Regular rate and rhythm without murmurs, gallops, or rubs. RESPIRATORY: Breath sounds equal bilaterally. No accessory muscle use. GASTROINTESTINAL: Abdominal binder in place, mildly tender to palpation in the lower abdomen. No rebound. MUSCULOSKELETAL: No cyanosis, or edema. Results Procedures completed during hospitalization: 09/25/2018 Incision and drainage of abdominal wall cellulitis, wound VAC placement Completed studies during hospitalization: Pending at discharge 09/25/18 14:19 Surgical [PTH] Routine Labs on day of discharge: Labs from last 24 hours 10/03/18 10/03/18 10/03/18 08:48 04:05 04:05 WBC RBC Hgb Hct MCV MCH MCHC RDW Plt Count MPV Sodium 138 Potassium 4.2 Chloride 107 Carbon Dioxide 23.7 Anion Gap 7 BUN 24 H Creatinine 0.97 Estimated GFR 80 L POC Glucose 117 H Random Glucose 107 H Calcium 9.2 Magnesium 2.1 B-Natriuretic Peptide 91 10/03/18 10/03/18 10/02/18 04:05 02:00 20:44 WBC 7.5 RBC 5.06 Hgb 14.6 Hct 43.2 MCV 85.4 MCH 29.0 MCHC 33.9 RDW 14.1 Plt Count 272 MPV 7.9 Sodium Potassium Chloride Carbon Dioxide Anion Gap BUN Creatinine Estimated GFR POC Glucose 139 H 136 H Random Glucose Calcium Magnesium B-Natriuretic Peptide 10/02/18 17:18 WBC RBC Hgb Hct MCV MCH MCHC RDW Plt Count MPV Sodium Potassium Chloride Carbon Dioxide Anion Gap BUN Creatinine Estimated GFR POC Glucose 92 Random Glucose Calcium Magnesium B-Natriuretic Peptide Preliminary micro results at discharge 09/25/18 12:53 Fungal Culture - Preliminary Abscess - Abdominal No growth in 1 week 09/25/18 12:53 Mycobacterial Culture - Preliminary Abscess - Abdominal No growth in 1 week 09/25/18 12:53 Fungal Culture - Preliminary Abscess - Abdominal No growth in 1 week 09/25/18 12:53 Mycobacterial Culture - Preliminary Abscess - Abdominal No growth in 1 week - Impressions ITS Impressions Abdomen/Pelvis CT 09/19/18 17:31 CONCLUSION: 1. Previous ventral hernia repair. Associated large, chronic and nonindurated appearing intraperitoneal fluid collection is without appreciable change but there is a new, small and indurated appearing subcutaneous fluid collection at the umbilicus. Just above the subcutaneous fluid collection is a new area of herniated fat. 2. Enlarged and fatty infiltrated liver, similar to before. 3. No acute abnormalities are seen within the abdominal or pelvic cavity. Patient has situs inversus. There is a moderate size hiatal hernia. Chest CTA 09/19/18 17:31 CONCLUSION: 1. No pulmonary embolus. 2. Very mild dependent atelectasis of both lungs. No pneumonia, effusion or pneumothorax. 3. Mild to moderate emphysema. 4. Coronary artery calcification. 5. Moderate size hiatal hernia. 6. Situs inversus. Needle Aspiration US 09/21/18 00:00 CONCLUSION: 1. Uncomplicated ultrasound-guided aspiration of superficial subcutaneous periumbilical fluid collection, as above. Abdomen X-Ray 09/24/18 00:00 CONCLUSION: Nonspecific intestinal gas pattern Chest X-Ray 09/26/18 06:00 CONCLUSION: Bilateral mostly basilar airspace disease similar to September 25. Discharge Plan - Discharge Disposition Patient Disposition: Discharge Home - Discharge Condition Condition: Stable - Discharge Order Discharge Orders: Discharge Order (Routine); Ordered 10/03/18 Ordered By: Ashlyn Medina General Surgery Clear for Discharge (Routine); Ordered 09/28/18 Ordered By: Jigar Lau - Discharge Details Anticipated Discharge Date: 10/03/18 - Physicians Team Primary Care Provider: Primary Care Davion,Etsela Attending Provider: Ashlyn Medina Other Providers: Roberto Tomas MD ; Floyd Alvares MD ; Surgeons,[facility] ; Janae Graham MD ; Cesia Rivas MD
== END 2018-10-03 17:51 | disposition home or self-care (01) ==
LOC: NEPC 16:42 → NEDA 21:36 → HCIS 23:05 → N04 09-21 02:43 → N03 09-25 14:19 → N04 09-29 14:48
PROVIDERS: ADMIT Hospitalist; ATTEND Hospitalist